=== PATIENT | female | born 1965 | race Caucasian/White ===

== ENCOUNTER 2017-08-22 17:46 | Inpatient (IN) | payer OTHER, SELFPAY ==
[2017-08-22 18:30] LABS: #Basophils 0.1 thou/uL (0.0-0.2); #Eosinphils 0.1 thou/uL (0.0-0.7); #Monocytes 0.6 thou/uL (0.11-0.59); #Neutrophils 3.7 thou/uL (1.40-6.50); %Basophils 1.6 % (0.0-1.0); %Eosinophils 1.2 % (0.0-10.0); %Lymphocytes 31.4 % (21.0-51.0); %Monocytes 9.2 % (0.0-10.0); Hematocrit 40.9 % (36.0-47.0); Mean Platelet Volume 6.3 fL (7.4-10.4); Red Blood Cell (RBC) Count 4.24 mill/uL (4.20-5.40); White Blood Cell (WBC) Count 6.5 thou/uL (4.8-10.8)
[2017-08-22 18:35] LABS: Bilirubin Negative (Negative); Blood, Urine Negative (Negative); Glucose, Urine (Dipstick) Negative (Negative); Ketone, Urine Trace mg/dL (Negative); Nitrite Negative (Negative); Protein, Urine (Dipstick) Negative (Neg-Trace)
[2017-08-22] MEDS ORDERED: Multivitamins, Adult 10 ML, Thiamine HCl 100 MG, Folic Acid 1 MG in Dextrose 5 %-0.45 %... IV SCH ×4 (18:45)
[2017-08-22 18:46] LABS: Bacteria/HPF None Seen HPF (None Seen); Hyaline Casts/LPF NONE SEEN LPF (0-3 Hyaline); RBC/HPF None Seen HPF (0-3); Squamous Epithelial 0-3 HPF (0-3); WBC/HPF 0-3 HPF (0-3)
[2017-08-22] MEDS ORDERED: Lorazepam 2 MG/ML VIAL ONE (18:47)
[2017-08-22 18:51] LABS: ALT (SGPT) 48 U/L (8-55); AST (SGOT) 187 U/L (5-34); Alkaline Phosphatase 160 U/L (40-150); Anion Gap 21 mmol/L (10-20); BUN (Urea Nitrogen) Less than 4 mg/dL (9.8-20.1); Bilirubin, Total 0.8 mg/dL (0.2-1.2); CK (CPK) 48 U/L (29-168); Calc. Creatinine Clearance 0 mL/min (70-130); Calcium 9.2 mg/dL (7.8-10.44); Carbon Dioxide 22 mmol/L (22-29); Chloride 88 mmol/L (98-107); Estimated GFR-MDRD Greater than 90; Globulin 4.4 g/dL (2.4-3.5); Protein, Total 8.5 g/dL (6.0-8.3)
[2017-08-22 18:55] LABS: Troponin I Less than 0.010 ng/mL (< 0.028)
[2017-08-22] MEDS ORDERED: Ondansetron HCl/PF 4 MG/2 ML Vial ONE (18:57)
[2017-08-22] MEDS ORDERED: Mag-Al 1200 mg/1200 mg/30 ML UDCUP ONE (20:04)
[2017-08-22] MEDS ORDERED: Lidocaine Viscous Sol 2% 15 ml UD Cup ONE (20:04)
[2017-08-22] MEDS ORDERED: Sodium Chloride 0.9% 1,000 ML IV SCH (22:08)
[2017-08-22 22:33] VITALS: BMI 26.5
--- NOTE | 2017-08-22 23:00 | PDOC.EVN ---
Event Note - Event Note Event Note: [id number] H&P Dictated 1. Alcohol abuse 2. Hyponatremia 3. Hypochloridemia plan: see orders
[2017-08-22] MEDS ORDERED: Ondansetron HCl/PF 4 MG/2 ML Vial IVP PRN (23:01)
[2017-08-22] MEDS ORDERED: Lorazepam 0.5 MG TAB PO PRN (23:03)
[2017-08-22] MEDS: Sodium Chloride 0.9% 1,000 ML IV SCH (23:31)
--- NOTE | 2017-08-22 23:51 | CT ---
CT ABDOMEN AND PELVIS NONCONTRAST 08/22/17 HISTORY: Bilateral flank pain. COMPARISON: 06/11/17 FINDINGS: Each renal collecting system and ureter and the urinary bladder are decompressed without stone evide nt. Phleboliths are apparent within the retroperitoneum. Lack of contrast limits evaluation for other abnormalities. There are calcified granulomata at the l kayla bases. The liver is diffusely hypodense. No evidence of bowel obstruction. Hiatal hernia is evid ent. IMPRESSION: 1. No CT evidence of urinary tract obstruction or calcification. 2. Hepatic steatosis. POS: [facility]
[2017-08-23] MEDS: Sodium Chloride 0.9% 1,000 ML IV SCH ×2 (03:17→18:25)
[2017-08-23] MEDS: Lorazepam 2 MG/ML VIAL SLOW IVP PRN ×3 (05:33→18:12)
[2017-08-23 05:45] LABS: Anion Gap 16 mmol/L (10-20); BUN (Urea Nitrogen) Less than 4 mg/dL (9.8-20.1); Calc. Creatinine Clearance 139 mL/min (70-130); Calcium 8.6 mg/dL (7.8-10.44); Carbon Dioxide 23 mmol/L (22-29); Chloride 93 mmol/L (98-107); Estimated GFR-MDRD Greater than 90
[2017-08-23 06:04] LABS: Band 3 % (5-11); Hematocrit 34.3 % (36.0-47.0); Mean Platelet Volume 6.7 fL (7.4-10.4); Neutrophil 56 % (42-75); Red Blood Cell (RBC) Count 3.55 mill/uL (4.20-5.40); White Blood Cell (WBC) Count 4.1 thou/uL (4.8-10.8)
[2017-08-23] MEDS: Famotidine/PF 20 mg/2ml Vial SLOW IVP SCH ×2 (07:54→20:32)
--- NOTE | 2017-08-23 08:26 | HP ---
DATE OF ADMISSION: 08/22/2017 CHIEF COMPLAINT: Nausea, vomiting, and diarrhea. HISTORY OF PRESENT ILLNESS: The patient is a 52-year-old female with past medical history of alcohol abuse and GERD, now came to the ED complaining of nausea, vomiting, and diarrhea. The patient said for the past 4 days, she was having vomiting and diarrhea numerous episodes. Denies any fever, denies any chills, denies any chest pain, denies any blood in the vomit, denies any blood in the stool, denies any black stools, denies any abdominal pain. Complains of acid reflux. Denies any chest pain, denies any palpations, denies any dizziness. The patient said she was drinking alcohol every day in order to prevent shakes. Complains of decreased p.o. intake also. PAST MEDICAL HISTORY: As per HPI. PAST SURGICAL HISTORY: Endometrial ablation. SOCIAL HISTORY: Positive for smoking, drinks alcohol everyday. Denies any drugs. FAMILY HISTORY: Positive for heart problems. REVIEW OF SYSTEMS: Constitutional: Denies any fever, denies any chills. Eyes : No vision problems. Ears: Denies any hearing loss. Neck: Denies neck pain. Cardiovascular: Denies any chest pain, denies any palpitations. Respiratory: Denies cough. Gastrointestinal: Positive for nausea, vomiting, and diarrhea. Musculoskeletal: Denies any joint deformities. Integumentary: Denies any rash. Cranial Nervous System: Denies syncope, denies lightheadedness. Psychiatric: Denies anxiety. All other review of systems are reviewed and are negative. PHYSICAL EXAMINATION: VITAL SIGNS: At the time of H\T\P performed, blood pressure is 120/79, temperature 97.8, heart rate 72, respiratory rate 22. GENERAL: The patient appears comfortable. HEENT: Pupils are equal, round, and reactive. Anterior nares patent. Nose normal. Ears normal. Teeth intact. Tongue is moist. NECK: Supple, no JVD. CARDIOVASCULAR: S1 and S2 present. Regular rate and rhythm. No murmurs, no rubs, no gallops. RESPIRATORY SYSTEM: No wheezing, no rhonchi. Breath sounds bilaterally. GASTROINTESTINAL: Abdomen is soft and nontender. No guarding, no organomegaly , no masses felt. MUSCULOSKELETAL: No edema. INTEGUMENTARY: No obvious rashes seen. PSYCHIATRIC: Mood is appropriate at this time. LABORATORY DATA: At the time of H\T\P performed, white count 6.5, hemoglobin 14 , platelet count is 175. BMP showed sodium 127, potassium 3.7, chloride 88, CO2 of 22, BUN of 21, creatinine 0.55. Urine, trace ketones, plasma alcohol 388. ASSESSMENT AND PLAN: The patient is a 52-year-old female: 1. Nausea, vomiting, and diarrhea, need to rule out any abdominal etiology. Plan is to do CT abdomen and pelvis without contrast to rule out any colitis. We will monitor the patient closely. 2. Hyponatremia probably secondary to excessive alcohol intake. Plan is to place the patient on IV fluids, monitor sodium level closely. Repeat BMP in a.m. 3. History of gastroesophageal reflux disease. Plan is to start the patient on PPI. 4. History of alcohol abuse. Plan is to give p.r.n. thiamine, p.r.n. Ativan, folic acid. Case was discussed in detail with the patient. CAMPBELLD
[2017-08-23] MEDS ORDERED: FLU VACC QS2017-18 36 mo. & older 0.5 ML SYRINGE IM ONE (09:00)
[2017-08-23] MEDS ORDERED: Folic Acid 1 MG TAB PO SCH (09:00)
[2017-08-23] MEDS ORDERED: Lorazepam 2 MG/ML VIAL ONE (11:09)
[2017-08-23] MEDS ORDERED: Ondansetron HCl/PF 4 MG/2 ML Vial IVP PRN (12:02)
[2017-08-23] MEDS ORDERED: Ondansetron HCl/PF 8 MG in Sodium Chloride 0.9% 50 ML IVPB PRN (12:02)
[2017-08-23] MEDS: Multivitamins, Adult 10 ML, Thiamine HCl 100 MG, Folic Acid 1 MG in Dextrose 5 %-0.45 %... IV SCH ×4 (14:36)
[2017-08-23] MEDS: Heparin 5,000 UNITS/ML VIAL SC SCH ×3 (14:36→20:30)
[2017-08-23] MEDS: Lorazepam 1 MG TAB PO SCH ×2 (14:52→20:31)
--- NOTE | 2017-08-23 14:57 | PDOC.PN ---
- Subjective Encounter Start Date: 08/23/17 Encounter Start Time: 11:10 Subjective: anxious, tremulous - Objective MAR Reviewed: Yes Vital Signs & Weight: Vital Signs (12 hours) Temp Pulse Resp BP BP Pulse Ox 08/23/17 08:54 98.7 F 101 H 18 126/78 94 L 08/23/17 08:00 98.7 F 107 H 20 93/62 92 L 08/23/17 04:00 98.7 F 107 H 20 93/62 93/62 92 L Weight Admit Weight 159 lb 4.8 oz Weight 159 lb 4.8 oz Result Diagrams: 08/23/17 04:30 08/23/17 04:30 Phys Exam - Physical Examination Constitutional: NAD Neck: no JVD Respiratory: clear to auscultation bilateral Cardiovascular: RRR, no significant murmur tacycardia Gastrointestinal: soft, no distention, positive bowel sounds Musculoskeletal: no edema, pulses present Dx/Plan (1) Alcohol withdrawal Code(s): F10.239 - ALCOHOL DEPENDENCE WITH WITHDRAWAL, UNSPECIFIED Status: Acute Qualifiers: Complication of substance-induced condition: with unspecified complication Qualified Code(s): F10.239 - Alcohol dependence with withdrawal, unspecified (2) Hyponatremia Code(s): E87.1 - HYPO-OSMOLALITY AND HYPONATREMIA Status: Acute (3) Acute renal failure Status: Acute Qualifiers: Acute renal failure type: unspecified Qualified Code(s): N17.9 - Acute kidney failure, unspecified (4) Alcohol intoxication Status: Acute Comment: impending delerium trewmons (5) Nausea Code(s): R11.0 - NAUSEA Status: Acute - Plan cont iv NS -: lorezepam 1 mg po tid, 1 mg iv q4h prn -: banana bag daily- po thiamine , etc soon * .
[2017-08-23] MEDS ORDERED: diphenhydrAMINE 25 MG CAP PO PRN (15:07)
[2017-08-23] MEDS: Acetaminophen 325 MG TAB PO PRN (20:31)
[2017-08-24] MEDS: Sodium Chloride 0.9% 1,000 ML IV SCH (01:13)
[2017-08-24] MEDS: Lorazepam 2 MG/ML VIAL SLOW IVP PRN ×2 (01:13→05:19)
[2017-08-24 08:38] VITALS: BP 142/89; TEMP 98.5
[2017-08-24] MEDS: Multivitamins, Adult 10 ML, Thiamine HCl 100 MG, Folic Acid 1 MG in Dextrose 5 %-0.45 %... IV SCH ×4 (08:48)
[2017-08-24] MEDS: Heparin 5,000 UNITS/ML VIAL SC SCH (08:51)
[2017-08-24] MEDS: Lorazepam 1 MG TAB PO SCH (08:52)
[2017-08-24] MEDS: Famotidine/PF 20 mg/2ml Vial SLOW IVP SCH (08:53)
[2017-08-24] MEDS ORDERED: FLUoxetine HCl 20 MG CAP PO SCH (09:00)
[2017-08-24] MEDS: Acetaminophen 325 MG TAB PO PRN (09:02)
--- NOTE | 2017-08-24 09:40 | PDOC.PN ---
- Subjective Encounter Start Date: 08/24/17 Encounter Start Time: 09:28 Subjective: ready to go home - Objective MAR Reviewed: Yes Vital Signs & Weight: Vital Signs (12 hours) Temp Pulse Resp BP Pulse Ox 08/24/17 08:21 98.5 F 93 18 142/89 H 97 08/24/17 04:00 98.9 F 89 18 146/93 H 96 Weight Admit Weight 159 lb 4.8 oz Weight 159 lb 4.8 oz I&O: 08/23/17 08/24/17 08/25/17 06:59 06:59 06:59 Intake Total 1700 Balance 1700 Result Diagrams: 08/23/17 04:30 08/23/17 04:30 Phys Exam - Physical Examination Constitutional: NAD Neck: no JVD Respiratory: clear to auscultation bilateral Cardiovascular: RRR, no significant murmur Gastrointestinal: soft, positive bowel sounds Musculoskeletal: no edema Dx/Plan (1) Alcohol withdrawal Code(s): F10.239 - ALCOHOL DEPENDENCE WITH WITHDRAWAL, UNSPECIFIED Status: Resolved Qualifiers: Complication of substance-induced condition: with unspecified complication Qualified Code(s): F10.239 - Alcohol dependence with withdrawal, unspecified (2) Hyponatremia Code(s): E87.1 - HYPO-OSMOLALITY AND HYPONATREMIA Status: Acute (3) Acute renal failure Status: Resolved Qualifiers: Acute renal failure type: unspecified Qualified Code(s): N17.9 - Acute kidney failure, unspecified (4) Alcohol intoxication Status: Resolved Comment: impending delerium trewmons (5) Nausea Code(s): R11.0 - NAUSEA Status: Resolved - Plan DC today * .
--- NOTE | 2017-08-24 11:44 | DIS ---
DATE OF ADMISSION: 08/22/2017 DATE OF DISCHARGE: 08/24/2017 PRIMARY CARE PROVIDER: Mihaela Hidalgo DISCHARGE DISPOSITION: Home. FINAL DIAGNOSES: Alcohol withdrawal syndrome, alcohol dependence, alcohol intoxication, hyponatremia , acute kidney failure, resolved. MEDICATIONS: Ativan 1 mg p.o. t.i.d. and q.4 hours p.r.n., thiamine 100 mg a day, Prozac 20 mg a day , folic acid 1 mg a day, multivitamin 1 a day, Protonix 40 mg a day, Seroquel XR 150 at bedtime. ALLERGIES: No known drug allergies. PENDING AT TIME OF DISCHARGE: Nothing. CODE STATUS: FULL. HOSPITAL COURSE: The patient was admitted to [facility] for nausea, vomiting, diarrhea. She was found to have a blood alcohol of 388; however, she was having some shaking. Her tremulousness got worse during her hospital stay. Initially, she was sundeep ivan with Ativan 1 mg p.o. t.i.d., not p.r.n. and 1 mg IV p.r.n. Today, she states she feels good. S he is ready for discharge. Her vital signs are stable. Her sodium has come up to 129, potassium 3.4 , creatinine 0.54. She does have an abnormal AST of 187 with normal alkaline phosphatase of 160. He r initial white count is 6.5, hemoglobin is 14.0, platelet count 175,000. White count dropped to 4.1 , hemoglobin 11.7, platelet count 119,000. Today, she is alert, calm, appropriate. We had a long di scussion of the use of Ativan with alcohol, I have given her prescription for 50 and I think that is the reasonable number. She is to see her primary care provider in 1 week. She is to continue on the vitamins that she was treated with here. I have explained to her the risk of respiratory depression with alcohol intoxication and the Ativan. She expresses understanding. She is agreed that if she s tarted drinking again, she will quit the Ativan and seek help. She expressed a very sincere desire t o avoid alcohol in the present and in the future. She states her father had a history of alcoholism and was able to shake it and she has good support from him.
[2017-08-24] MEDS ORDERED: Folic Acid 1 MG TAB PO SCH (12:00)
[2017-08-24] MEDS ORDERED: Multivit, Therapeutic 1 TAB PO SCH (12:00)
[2017-08-24] MEDS ORDERED: QUEtiapine Fumarate ER 150 MG TAB PO SCH (21:00)
== END 2017-08-24 11:06 | disposition home or self-care (01) | DRG 897 ==
LOC: ERS 17:46 → T4-A 20:46
PROVIDERS: ADMIT Family Medicine; ATTEND Family Medicine
DX: F10.231 Alcohol dependence with withdrawal delirium (principal); N17.9 Acute kidney failure, unspecified; E87.8 Other disorders of electrolyte and fluid balance, not elsewhere classified; E87.1 Hypo-osmolality and hyponatremia; K21.9 Gastro-esophageal reflux disease without esophagitis; F17.210 Nicotine dependence, cigarettes, uncomplicated; F10.229 Alcohol dependence with intoxication, unspecified; Y90.8 Blood alcohol level of 240 mg/100 ml or more
CPT/HCPCS: 36415; 74176; 80048; 80053; 80307; 81003; 81015; 82553; 84484; 85025; 93005; 96365; 96366; 96375; J1644; J2060; J2405; J3411; J7042; S0028

== ENCOUNTER 2017-09-17 17:09 | Inpatient (IN) | payer SELFPAY ==
[2017-09-17] MEDS ORDERED: Ketorolac Tromethamine 30 MG/ML VIAL ONE (17:19)
[2017-09-17] MEDS ORDERED: Fentanyl 100 MCG/2 ML VIAL ONE ×2 (17:19→23:17)
[2017-09-17 17:34] LABS: #Basophils 0.1 thou/uL (0.0-0.2); #Eosinphils 0.1 thou/uL (0.0-0.7); #Lymphocytes 2.2 thou/uL (1.20-3.40); #Monocytes 0.6 thou/uL (0.11-0.59); #Neutrophils 3.4 thou/uL (1.40-6.50); %Eosinophils 1.9 % (0.0-10.0); %Lymphocytes 34.1 % (21.0-51.0); %Monocytes 10.1 % (0.0-10.0); Hematocrit 37.1 % (36.0-47.0); Mean Platelet Volume 6.8 fL (7.4-10.4); Red Blood Cell (RBC) Count 3.76 mill/uL (4.20-5.40); White Blood Cell (WBC) Count 6.3 thou/uL (4.8-10.8)
[2017-09-17 17:41] LABS: PTT 32.2 SEC (22.9-36.1); Prothrombin Time 14.8 SEC (12.0-14.7)
--- NOTE | 2017-09-17 17:43 | RAD ---
FRONTAL AND LATERAL IMAGING OF THE LEFT TIBIA AND FIBULA: Date: 09/17/17 COMPARISON: None. HISTORY: Trauma, pain. FINDINGS: The bones are demineralized. There is an obliquely oriented fracture involving the distal left fibula r shaft with mild comminution and minimal lateral displacement. There is a medial malleolar fracture as well, incompletely assessed on this exam. Dedicated left ankle imaging advised. IMPRESSION: Fracture of the medial malleolus and distal left fibula for which dedicated left ankle imaging is rec ommended. POS: [facility]
--- NOTE | 2017-09-17 17:45 | RAD ---
3 VIEWS LEFT ANKLE: Date: 09/17/17 COMPARISON: None. HISTORY: Trauma, pain. FINDINGS: There is a comminuted, obliquely oriented distal left fibular shaft fracture with minimal lateral dis placement. There is a transverse fracture with distal distraction at the base of the medial malleolus . There is medial soft tissue swelling. IMPRESSION: Fractures of distal left fibular shaft and medial malleolus. POS: [facility]
--- NOTE | 2017-09-17 17:46 | RAD ---
2 VIEWS LEFT FOOT: Date: 09/17/17 COMPARISON: None. HISTORY: Trauma, pain. FINDINGS: The fracture of the distal left fibular shaft and medial malleolus again noted, better assessed on th e dedicated ankle series. There I a linear calcific density projecting over the base of the fifth metatarsal on the lateral vie w, etiology uncertain. When the patient is able, oblique imaging is advised to further assess. This c ould be artifactual or somewhat external to the patient. This density being associated with fracture seems unlikely but not fully excluded. IMPRESSION: Linear radiodensity projects over the base of the fifth metatarsal, significance uncertain. Fractures are seen involving the distal fibula and medial malleolus, better assessed on the ankle series. POS: [facility]
[2017-09-17 17:53] LABS: ALT (SGPT) 41 U/L (8-55); AST (SGOT) 188 U/L (5-34); Alkaline Phosphatase 157 U/L (40-150); Anion Gap 15 mmol/L (10-20); BUN (Urea Nitrogen) Less than 4 mg/dL (9.8-20.1); Bilirubin, Total 0.7 mg/dL (0.2-1.2); Calc. Creatinine Clearance 0 mL/min (70-130); Calcium 8.8 mg/dL (7.8-10.44); Carbon Dioxide 21 mmol/L (22-29); Chloride 97 mmol/L (98-107); Estimated GFR-MDRD Greater than 90; Protein, Total 7.8 g/dL (6.0-8.3)
[2017-09-17] MEDS ORDERED: HYDROmorphone 0.5 MG/0.5 ML SYRINGE ONE ×2 (18:29→20:42)
[2017-09-17] MEDS ORDERED: Ondansetron HCl/PF 4 MG/2 ML Vial ONE ×2 (19:43→20:41)
[2017-09-17] MEDS ORDERED: Lorazepam 2 MG/ML VIAL ONE (21:45)
[2017-09-17] MEDS ORDERED: Pantoprazole 40 MG VIAL ONE (21:46)
[2017-09-17 21:55] LABS: Magnesium 1.6 mg/dL (1.6-2.6); Phosphorus 3.5 mg/dL (2.3-4.7)
[2017-09-17] MEDS ORDERED: Pantoprazole 80 MG in Sodium Chloride 0.9% 100 ML IVP SCH (22:00)
[2017-09-17 22:32] LABS: Magnesium 1.2 mg/dL (1.6-2.6)
[2017-09-17 22:37] LABS: Troponin I Less than 0.010 ng/mL (< 0.028)
--- NOTE | 2017-09-17 22:40 | RAD ---
PORTABLE UPRIGHT FRONTAL CHEST: Date: 09/17/17 COMPARISON: 09/05/16. HISTORY: Chest pain, trauma, fracture of the ankle. FINDINGS: There is increased mild interstitial density, stable. No pneumothorax or pleural fluid is seen. There is no focal consolidation or alveolar edema. IMPRESSION: No acute findings. POS: [facility]
[2017-09-17 23:55] VITALS: BMI 28.0
[2017-09-18] MEDS ORDERED: Ondansetron HCl/PF 4 MG/2 ML Vial IVP PRN ×2 (00:13→07:53)
[2017-09-18] MEDS ORDERED: Ondansetron ODT 4 MG TAB SL PRN (00:13)
[2017-09-18] MEDS ORDERED: Lorazepam 2 MG/ML VIAL SLOW IVP PRN (00:15)
[2017-09-18] MEDS ORDERED: Dextrose 5 % And 0.9 % NaCl 1,000 ML IV SCH (00:15)
[2017-09-18] MEDS: Fentanyl 100 MCG/2 ML VIAL SLOW IVP PRN ×2 (00:53→06:02)
[2017-09-18] MEDS ORDERED: Magnesium Sulfate 4 GM in Sodium Chloride 0.9% 250 ML 250 ML IVPB SCH (01:00)
[2017-09-18 01:25] LABS: Hematocrit 31.2 % (36.0-47.0)
[2017-09-18] MEDS ORDERED: cloNIDine 0.1 MG TAB PO PRN (03:33)
[2017-09-18] MEDS ORDERED: Lorazepam 1 MG TAB PO PRN (03:33)
[2017-09-18] MEDS ORDERED: Morphine 2 MG/ML SYRINGE SLOW IVP PRN (03:35)
[2017-09-18] MEDS: Dextrose 5 % And 0.9 % NaCl 1,000 ML IV SCH ×3 (03:46→22:28)
[2017-09-18 04:29] LABS: #Lymphocytes 1.1 thou/uL (1.20-3.40); #Monocytes 0.6 thou/uL (0.11-0.59); #Neutrophils 3.4 thou/uL (1.40-6.50); %Basophils 0.2 % (0.0-1.0); %Eosinophils 0.6 % (0.0-10.0); %Lymphocytes 21.9 % (21.0-51.0); %Monocytes 10.8 % (0.0-10.0); Hematocrit 30.1 % (36.0-47.0); Mean Platelet Volume 6.7 fL (7.4-10.4); Red Blood Cell (RBC) Count 3.06 mill/uL (4.20-5.40); White Blood Cell (WBC) Count 5.1 thou/uL (4.8-10.8)
[2017-09-18 04:43] LABS: ALT (SGPT) 31 U/L (8-55); AST (SGOT) 135 U/L (5-34); Alkaline Phosphatase 127 U/L (40-150); Anion Gap 13 mmol/L (10-20); BUN (Urea Nitrogen) Less than 4 mg/dL (9.8-20.1); Bilirubin, Total 0.8 mg/dL (0.2-1.2); Calc. Creatinine Clearance 165 mL/min (70-130); Calcium 7.8 mg/dL (7.8-10.44); Carbon Dioxide 21 mmol/L (22-29); Chloride 105 mmol/L (98-107); Estimated GFR-MDRD Greater than 90; Globulin 3.1 g/dL (2.4-3.5); Protein, Total 6.3 g/dL (6.0-8.3)
[2017-09-18 04:44] LABS: Iron 84 ug/dL (50-170)
[2017-09-18] MEDS: Folic Acid 1 MG TAB PO SCH (06:02)
--- NOTE | 2017-09-18 06:03 | HP ---
DATE OF ADMISSION: 09/17/2017 The patient was seen and examined on 09/17/2017. PRIMARY CARE PHYSICIAN: AARON Mackey CHIEF COMPLAINT: Left lower extremity pain. HISTORY OF PRESENT ILLNESS: The patient is a 52-year-old female with chronic alcoholism and GI bleed ing secondary to Snehal-Crews tear in the past, presented to the emergency room with left lower extr emity pain that started when 200-pound door fell on her left lower extremity. She was brought in to the emergency room by EMS. She received 100 mcg of fentanyl and Zofran. There was no loss of sensat ion of her legs. Her pulses were intact per EMS report. Orthopedic was notified. The plan was to discharge her after sprinting her leg. While in the emerge ncy room, the patient begin vomiting, which was blood tinged. She also became somewhat lightheaded a nd dizzy. She was started on Protonix drip. Her hemoglobin in the emergency room was 12.4 initially . She denies any abdominal pain, fever, or chills. Her last alcohol drink was earlier today. No ch est pain, palpitations, or syncope reported. Initial vital signs in the emergency room showed temperature 98.3, respirations 22, pulse rate of 83, blood pressure of 125/83 with O2 saturation 99% on room air. PAST MEDICAL HISTORY: 1. History of GI bleeding secondary to Snehal-Crews tear. 2. Chronic alcoholism. 3. History of polysubstance abuse. 4. Fibromyalgia. 5. Chronic pain syndrome. 6. Hypertension. 7. Migraines. PAST SURGICAL HISTORY: 1. Bilateral breast augmentation. 2. Uterine ablation. 3. Bladder suspension. 4. Bilateral tubal ligation. ALLERGIES: The patient is allergic to IODINE. CURRENT HOME MEDICATIONS: Prozac 20 mg daily, multivitamin, folic acid and thiamine daily. The markel ent was discharged on Ativan for alcohol withdrawal. Protonix 40 mg daily, Seroquel 150 mg at bedtim e. SOCIAL HISTORY: The patient currently lives at home with her family. Drinks up to six pack mostly o n a daily basis. No drug use. Denies any smoking. FAMILY HISTORY: Positive for coronary artery disease. REVIEW OF SYSTEMS: The following complete review of systems was negative, unless otherwise mentioned in the HPI or below: Constitutional: Weight loss or gain, ability to conduct usual activities. Skin: Rash, itching. Eyes: Double vision, pain. ENT/Mouth: Nose bleeding, neck stiffness, pain, tenderness. Cardiovascular: Palpitations, dyspnea on exertion, orthopnea. Respiratory: Shortness of breath, wheezing, cough, hemoptysis, fever or night sweats. Gastrointestinal: Poor appetite, abdominal pain, heartburn, nausea, vomiting, constipation, or diarr hea. Genitourinary: Urgency, frequency, dysuria, nocturia. Musculoskeletal: Pain, swelling. Neurologic/Psychiatric: Anxiety, depression. Allergy/Immunologic: Skin rash, bleeding tendency. PHYSICAL EXAMINATION: VITAL SIGNS: As discussed above. GENERAL: A 52-year-old female in no apparent distress. Denies any pain. Continues to have some pavan sea; however, denies any vomiting at this time. HEENT: Head atraumatic, normocephalic. Sclerae are anicteric. Moist mucous membranes. No oral les ion. NECK: Supple, no JVD appreciated. No carotid bruit. LUNGS: Clear to auscultation bilaterally. No wheezing or rales. HEART: S1, S2 present. Regular rate and rhythm. No rubs or gallops. ABDOMEN: Soft, mild epigastric tenderness, without any rebound, guarding, no costovertebral angle te nderness. EXTREMITIES: No edema or calf tenderness. There is splint in left lower extremity. NEUROLOGIC: Grossly nonfocal, moves all four extremities. No sensory deficit in the left lower extr emity. SKIN: Warm and dry. LYMPH NODES: No palpable lymph nodes in the neck. PERIPHERAL VASCULAR: Radial pulses palpable bilaterally. MUSCULOSKELETAL: No joint swelling or tenderness. LABORATORY FINDINGS: CBC showed WBC of 6.3 with hemoglobin 12.4, hematocrit 37.1, and platelet count 134. PT was 14.8, INR 1.1. Chemistries showed sodium 129, potassium 3.6, chloride 97, bicarbonate 21, BUN less than 4, creatinine 0.53, magnesium 1.2. Troponins were negative. Lipase was 211, AST 1 88, ALT 41. Chest x-ray by my review was negative for infiltrate. EKG by my review showed sinus rhy thm without significant ST-T wave changes. X-ray of the ankle was consistent with fracture of the di stal left fibular shaft and medial malleolus. IMPRESSION: 1. Upper gastrointestinal bleeding. The patient had EGD earlier this year that was consistent with Snehal-Crews tear. She also had reflux esophagitis as well as esophageal stricture. We will contin ue Protonix drip. We will monitor H and H closely. IMCU monitoring. GI consult. N.p.o. IV fluids . Two large bore IV lines. 2. Anemia secondary to acute gastrointestinal blood loss. A repeat H and H is 10.2 and 31.2. We wi ll continue monitoring. We will transfuse if needed. 3. History of reflux esophagitis and esophageal stricture. 4. Chronic alcoholism. The patient was counseled to quit drinking. We will continue thiamine, foli c acid, and multivitamins. 5. Polysubstance abuse. The patient was counseled. 6. Chronic pain. 7. Depression, fibromyalgia, without any suicidal ideation. 8. Chronic pain syndrome. 9. Hyponatremia, chronic. 10. Hypomagnesemia at 1.2. We will replace. 11. Abnormal liver function tests secondary to chronic alcoholism. 12. Metabolic acidosis. 13. Thrombocytopenia with platelet of 90. Plan of care was discussed with the patient in detail and she stated understanding.
[2017-09-18 06:55] LABS: Hematocrit 31.8 % (36.0-47.0)
[2017-09-18] MEDS ORDERED: Milk Of Magnesia 30 ML UDCUP PO PRN (07:53)
[2017-09-18] MEDS ORDERED: Mag-Al 1200 mg/1200 mg/30 ML UDCUP PO PRN (07:53)
[2017-09-18] MEDS ORDERED: Senokot 8.6 MG TAB PO PRN (07:53)
[2017-09-18] MEDS ORDERED: Diabetic Tussin 200 MG/10 ML UDCUP PO PRN (07:53)
[2017-09-18] MEDS ORDERED: hydrALAZINE 20 MG/ML VIAL SLOW IVP PRN (07:53)
[2017-09-18] MEDS ORDERED: Ondansetron ODT 4 MG TAB PO PRN (07:53)
[2017-09-18] MEDS ORDERED: Acetaminophen 325 MG TAB PO PRN (07:53)
[2017-09-18] MEDS ORDERED: Chloraseptic Spray 180 ml Bottle PO PRN (07:53)
[2017-09-18] MEDS ORDERED: Sodium Chloride 0.65% Nasal 44 ML BOT EA NARE PRN (07:53)
[2017-09-18] MEDS ORDERED: Eucerin (Mineral Oil/Petrolatum,White) 30 gm Jar TOP PRN (07:53)
[2017-09-18] MEDS ORDERED: Zolpidem Tartrate 5 MG TAB PO PRN (07:53)
[2017-09-18] MEDS: HYDROcodone/Acetaminophen 5/325 mg Tablet PO PRN ×3 (08:42→17:09)
[2017-09-18] MEDS: Lorazepam 1 MG TAB PO SCH ×3 (08:42→21:22)
[2017-09-18] MEDS: FLUoxetine HCl 20 MG CAP PO SCH (08:42)
[2017-09-18] MEDS ORDERED: Multivit, Therapeutic 1 TAB PO SCH (09:00)
[2017-09-18] MEDS ORDERED: FLU VACC QS2017-18 36 mo. & older 0.5 ML SYRINGE IM ONE (09:00)
[2017-09-18] MEDS: Pantoprazole 40 MG VIAL IVP SCH ×2 (10:15→21:29)
[2017-09-18] MEDS: Cyanocobalamin (Vitamin B-12) 1,000 MCG TAB PO SCH (10:15)
[2017-09-18] MEDS: Multivit, Therapeutic 1 TAB PO SCH (12:10)
--- NOTE | 2017-09-18 12:30 | CON ---
DATE OF CONSULTATION: 09/18/2017 HISTORY: She is a 52-year-old female who came into the hospital after a kid fell on her leg and frac tured her left leg. In the ER she was complaining of abdominal pain and had black stools. She was therefore admitted to the ICU. She has a longstanding history of alcohol abuse, drinks up to 12 beers from time to time. 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 PAST MEDICAL HISTORY: Pertinent for previous GI bleed. She has alcohol abuse. Anxiety, fibromyalgi a, substance abuse, chronic pain, hypertension, migraine headaches. PAST SURGICAL HISTORY: Breast augmentation at age 22, uterine ablation, bladder suspension, tubal li gation. CHRONIC MEDICATIONS FROM HOME: Thiamine, Seroquel 150, Protonix 40, vitamin, Ativan, folic acid, Pro eleazar. ALLERGIES: None. SOCIAL/FAMILY HISTORY: Unremarkable. PHYSICAL EXAMINATION: VITAL SIGNS: Pulse 105, blood pressure 130/76, sats 97% on room air, respirations 13. GENERAL: Awake, alert, responsive. CHEST: Chest revealed decreased breath sounds, no wheezing. CARDIAC: Normal S1, S2. No gallops. ABDOMEN: Soft, no masses. LABORATORY: White count 13,000, H&H 10 and 30, stable, platelet count is low at 81. Chest x-ray was normal. X-ray of her tibia and fibula shows fracture at medial malleolus and distal left fibula. IMPRESSION: 1. Fractured distal fibula shaft to medial malleolus. 2. Alcohol abuse. 3. Gastrointestinal bleed. 4. Thrombocytopenia. PLAN: The patient appears to be stable enough to transfer out of the ICU. Await input from GI and Orthopedics. I agree with Ativan, folic acid and Thiamine. Counseled for alcohol abuse. I will follow while in the ICU.
[2017-09-18 15:23] LABS: Hematocrit 31.1 % (36.0-47.0)
[2017-09-18] MEDS: Morphine 4 MG/ML VIAL SLOW IVP PRN ×2 (17:32→21:25)
[2017-09-18 19:33] LABS: Hematocrit 30.5 % (36.0-47.0)
[2017-09-18] MEDS ORDERED: QUEtiapine Fumarate ER 50 MG TAB PO SCH (21:00)
[2017-09-18] MEDS ORDERED: Morphine 4 MG/ML VIAL ONE (21:20)
[2017-09-18] MEDS: QUEtiapine Fumarate ER 150 MG TAB PO SCH (22:20)
[2017-09-18 22:57] LABS: Hematocrit 31.5 % (36.0-47.0)
[2017-09-19] MEDS ORDERED: CEFAZOLIN/Water 2 GM/20 ML SYRINGE SLOW IVP SCH (00:01)
--- NOTE | 2017-09-19 03:21 | CON ---
DATE OF CONSULTATION: 09/18/2017 CHIEF COMPLAINT: Left leg pain. HISTORY OF PRESENT ILLNESS: Ms. Osorio is a 52-year-old female who was injured earlier today. A heavy door fell on her left leg. This caused her to twist and fall. She had immediate pain in the left l eg. She was unable to ambulate. She was diagnosed with an ankle fracture. The patient was splinted in the emergency room with plans to discharge; however, she began vomiting. This was blood tinged. She was then admitted to the hospital to work up her gastrointestinal bleeding. She does have a his tory of alcoholism with previous gastrointestinal bleed secondary to Snehal-Crews tear. PAST MEDICAL HISTORY: 1. History of gastrointestinal bleed. 2. Alcoholism. 3. Polysubstance abuse. 4. Fibromyalgia. 5. Chronic pain. 6. Hypertension. 7. Migraines. PAST SURGICAL HISTORY: History of previous breast augmentation, previous uterine ablation, bladder s uspension, and tubal ligation. ALLERGIES: IODINE. SOCIAL HISTORY: The patient drinks alcohol. She denies drug use. She denies current smoking. REVIEW OF SYSTEMS: Positive for left leg pain, otherwise negative. FAMILY MEDICAL HISTORY: Noncontributory. IMAGES: Reviewed including left ankle x-rays, which demonstrated distal fibula and medial malleolus fracture with displacement. These appear acute. Foot x-rays negative otherwise. PHYSICAL EXAMINATION: VITAL SIGNS: Temperature is 98.1, pulse is 83, respiratory rate 18, oxygen saturation 98%, blood pre ssure is 142/79. GENERAL: The patient is lying supine, in no apparent distress. RESPIRATORY: Breathing comfortably. ABDOMEN: Soft, nontender, nondistended. MUSCULOSKELETAL: The patient's left lower extremity is splinted. She is able to gently wiggle the t oes including flexion and extension. She has 2 second capillary refill. Warm and well perfused. IMPRESSION: Status post ankle fracture with history of GI bleed and possible active GI bleed, histor y of alcoholism. PLAN: At this point, the patient will need operative intervention for her ankle. She has a displace d bimalleolar ankle fracture, which is unstable. I will plan for surgical intervention tomorrow unle ss she has further complications or worsening of GI bleed symptoms. For now, she seems stable and he r hemoglobin is appropriate. She will be n.p.o. at midnight. She will have preoperative antibiotics and further medical workup for her conditions. Risks include infection, which is higher given her c hronic alcoholism, wound complication, nerve or vascular injury, nonunion, malunion, and others.
[2017-09-19] MEDS: Morphine 4 MG/ML VIAL SLOW IVP PRN ×4 (05:11→22:17)
[2017-09-19] MEDS: Folic Acid 1 MG TAB PO SCH (05:12)
[2017-09-19 06:22] LABS: #Eosinphils 0.1 thou/uL (0.0-0.7); #Lymphocytes 0.8 thou/uL (1.20-3.40); #Monocytes 0.4 thou/uL (0.11-0.59); #Neutrophils 1.3 thou/uL (1.40-6.50); %Basophils 0.6 % (0.0-1.0); %Eosinophils 2.1 % (0.0-10.0); %Lymphocytes 31.7 % (21.0-51.0); %Monocytes 14.2 % (0.0-10.0); Hematocrit 29.9 % (36.0-47.0); Mean Platelet Volume 8.6 fL (7.4-10.4); White Blood Cell (WBC) Count 2.6 thou/uL (4.8-10.8)
[2017-09-19 06:37] LABS: Anion Gap 8 mmol/L (10-20); BUN (Urea Nitrogen) Less than 4 mg/dL (9.8-20.1); Calc. Creatinine Clearance 159 mL/min (70-130); Calcium 8.3 mg/dL (7.8-10.44); Carbon Dioxide 25 mmol/L (22-29); Chloride 105 mmol/L (98-107); Estimated GFR-MDRD Greater than 90; Magnesium 1.8 mg/dL (1.6-2.6); Phosphorus 2.1 mg/dL (2.3-4.7)
--- NOTE | 2017-09-19 07:21 | CON ---
DATE OF CONSULTATION: 09/18/2017 HISTORY OF PRESENT ILLNESS: Ms. Aicha Osorio is a 52-year-old alcoholic who came to the emergency ro om yesterday evening as she was operating a hog trap and the door fell on her leg. She had a fractur e and she came to the emergency room and she was splinted and was going to go to the doctor today; ho benny, in the emergency room, she had an episode of hematemesis. She drinks about 6-12 beers a day. She apparently drank more heavily than in the past. She has been told by her PCP, Dr. Lund, that she needs to drink less, and she had actually been placed on some Ativan that help her wean down, but she had not started doing that yet. She knows about a year ago at this hospital and she had a simil ar episode and had to have an NG tube and was told she had an ulcer in her esophagus. Reviewing more recent record, she had a long distal esophageal Snehal-Crews tear in 10/2016, which had to be treat ed endoscopically. She also had esophageal stricture, which was not treated, and reflux esophagitis. She had a prior history of pancreatitis, felt to be alcohol related in 2016. Presently, she denies any abdominal pain. States she is a little bit nauseated. She states she is getting her regular fo od, but she really does not have much of an appetite. PAST MEDICAL HISTORY: Snehal-Crews tear in 10/2016, chronic alcoholism, history of polysubstance ab use, fibromyalgia, chronic pain syndrome, hypertension, migraines. PAST SURGICAL HISTORY: Includes bilateral breast augmentation, uterine ablation, bladder suspension, bilateral tubal ligation, upper endoscopy in 10/2016. ALLERGIES: IODINE. MEDICATIONS AT HOME: Prozac, multivitamin, folic acid, thiamine, Protonix, and Seroquel. PRESENT MEDICATIONS HERE IN THE HOSPITAL: Tylenol, Maalox, vitamin B12, Prozac, Folvite, Apresoline, [place] p.r.n. Ativan p.r.n., Theragran, Zofran, Protonix 40 IV q.12 hours, quetiapine, thiamine, mult ivitamin, folic acid. PHYSICAL EXAMINATION: GENERAL: The patient is resting comfortably in bed. She has had no vomiting since she had been admi tted to the floor. She had one bowel movement, which was brown. VITAL SIGNS: Temperature is 98, pulse 83, blood pressure 142/79. LUNGS: Clear. CARDIOVASCULAR: Regular rate and rhythm without clicks or murmurs. ABDOMEN: Soft, nontender. There is no rebound. There is no guarding. EXTREMITIES: Reveal no clubbing, cyanosis or edema. LABORATORY STUDIES: Hemoglobin is 10.2 this afternoon, it was 10 to 10.2 since she came in last nigh t, it was 12.4 at 1700 yesterday, but her baseline hemoglobin is 10-11 dating back all through the . Chemistries: Sodium 125, potassium 3.5, BUN and creatinine are 13 and 0.4, AST was 135, AL T 31, alkaline phosphatase is 127. Iron studies normal, ferritin 39, albumin 3.2, lipase 211, magnes ium 1.2, phosphorus was 3.5. ASSESSMENT AND PLAN: 1. Alcoholism. 2. Electrolyte disturbances related to alcoholism with low magnesium and low phosphorus. Would chec k these and replace these daily. 3. High risk for DTs, agree with ASE protocol, that has been instituted. PRN Ativan to get her thro ugh DTs. She said she wants to stop drinking and I would see if we can get her through DTs and then maybe she can go home with a fresh start. 4. Self-limiting hematemesis, likely related to Snehal-Crews tear from retching. At this time, she is not having ongoing bleeding and does not need endoscopy. I would back off the regular diet and p ut her on clear liquids. Continue IV PPI q.12 hours. At this time, there is no need for endoscopy. I will follow from a distance, and if I can be of further assistance, please do not hesitate to cont act me.
[2017-09-19] MEDS: Lorazepam 1 MG TAB PO SCH ×3 (07:37→20:57)
[2017-09-19] MEDS: Pantoprazole 40 MG VIAL IVP SCH ×2 (07:37→20:57)
[2017-09-19] MEDS: FLUoxetine HCl 20 MG CAP PO SCH (07:37)
[2017-09-19] MEDS: Cyanocobalamin (Vitamin B-12) 1,000 MCG TAB PO SCH (07:38)
[2017-09-19] MEDS ORDERED: Potassium Phosphate 30 MMOL, Admixture Fee 1 EACH in Sodium Chloride 0.9% 500 ML IVPB SCH (07:45)
--- NOTE | 2017-09-19 10:36 | PDOC.PN ---
- Subjective Encounter Start Date: 09/19/17 Encounter Start Time: 08:10 Patient seen and examined. No new complaints. No overnight events, pain controlled with morphin - Objective Resuscitation Status: Resuscitation Status FULL:Full Resuscitation MAR Reviewed: Yes Vital Signs & Weight: Vital Signs (12 hours) Temp Pulse Resp BP BP Pulse Ox 09/19/17 08:15 97.6 F 96 18 97 09/19/17 08:05 98.8 F 78 18 125/75 97 09/19/17 04:28 97.6 F 96 18 126/78 97 09/19/17 04:00 96 18 126/78 09/19/17 00:32 98.3 F 89 18 144/76 H 96 09/19/17 00:00 89 18 144/76 H Weight Weight 168 lb 6.931 oz Most Recent Monitor Data Heart Rate from ECG 93 NIBP 148/89 NIBP BP-Mean 107 Respiration from ECG 14 SpO2 98 I&O: 09/18/17 09/19/17 09/20/17 06:59 06:59 06:59 Intake Total 1867 Output Total 1350 1349 Balance -1350 518 Result Diagrams: 09/19/17 05:05 09/19/17 05:05 Phys Exam - Physical Examination Constitutional: NAD HEENT: PERRLA, moist MMs, sclera anicteric Neck: no JVD, supple Respiratory: no wheezing, no rales, no rhonchi Cardiovascular: RRR, no significant murmur, no rub Gastrointestinal: soft, non-tender, no distention, positive bowel sounds Musculoskeletal: no edema, pulses present left ankle swelling and pain Neurological: non-focal, normal sensation Psychiatric: normal affect, A&O x 3 Skin: no rash, normal turgor Dx/Plan (1) Fracture of distal end of left fibula Code(s): S82.832A - OTH FRACTURE OF UPPER AND LOWER END OF LEFT FIBULA, INIT Status: Acute (2) Closed fracture of medial malleolus of left ankle Code(s): S82.52XA - DISP FX OF MEDIAL MALLEOLUS OF LEFT TIBIA, INIT FOR CLOS FX Status: Acute (3) Upper GI bleed Code(s): K92.2 - GASTROINTESTINAL HEMORRHAGE, UNSPECIFIED Status: Acute (4) Anemia due to acute blood loss Code(s): D62 - ACUTE POSTHEMORRHAGIC ANEMIA Status: Acute (5) Hypomagnesemia Code(s): E83.42 - HYPOMAGNESEMIA Status: Acute (6) Thrombocytopenia Code(s): D69.6 - THROMBOCYTOPENIA, UNSPECIFIED Status: Acute (7) Chronic alcoholism Code(s): F10.20 - ALCOHOL DEPENDENCE, UNCOMPLICATED Status: Chronic (8) Fibromyalgia Status: Chronic (9) Hypophosphatemia Code(s): E83.39 - OTHER DISORDERS OF PHOSPHORUS METABOLISM Status: Acute - Plan cont current plan of care * replace potassium phosphate * continue IVF today * pt is planned for surgical repair for ankle fracture * pain controlled with morphin * medication reviewed as below * symptomatic treatment. Review of Systems - Review of Systems Constitutional: negative: Fever, Chills, Sweats, Weakness, Malaise, Other Eyes: negative: Pain, Vision Change, Conjunctivae Inflammation, Eyelid Inflammation, Redness, Other ENT: negative: Ear Pain, Ear Discharge, Nose Pain, Nose Discharge, Nose Congestion, Mouth Pain, Mouth Swelling, Throat Pain, Throat Swelling, Other Respiratory: negative: Cough, Dry, Shortness of Breath, Hemoptysis, SOB with Excertion, Pleuritic Pain, Sputum, Wheezing Cardiovascular: negative: Chest Pain, Palpitations, Orthopnea, Paroxysmal Noc. Dyspnea, Edema, Light Headedness, Other Gastrointestinal: negative: Nausea, Vomiting, Abdominal Pain, Diarrhea, Constipation, Melena, Hematochezia, Other Genitourinary: negative: Dysuria, Frequency, Incontinence, Hematuria, Retention , Other Musculoskeletal: Leg Pain. negative: Neck Pain, Shoulder Pain, Arm Pain, Back Pain, Hand Pain, Foot Pain, Other - Medications/Allergies Allergies/Adverse Reactions: Allergies Allergy/AdvReac Type Severity Reaction Status Date / Time No Known Allergies Allergy Verified 09/17/17 23:50 Medications: Current Medications Acetaminophen (Tylenol) 650 mg PO Q4H PRN PRN Reason: Headache/Fever or Mild Pain Hydrocodone Bitart/Acetaminophen ([place] 5/325) 1 tab PO Q4H PRN PRN Reason: Moderate Pain (4-6) Last Admin: 09/18/17 17:09 Dose: 1 tab Al Hydroxide/Mg Hydroxide (Maalox) 15 ml PO Q4H PRN PRN Reason: Heartburn or Indigestion Cefazolin Sodium (Ancef) 2 gm SLOW IVP WILLCALL [facility] Stop: 09/19/17 12:00 Clonidine (Catapres) 0.1 mg PO Q4H PRN PRN Reason: Systolic BP > 180 Cyanocobalamin (Vitamin B-12) 1,000 mcg PO DAILY [facility] Last Admin: 09/19/17 07:38 Dose: Not Given Fluoxetine HCl (Prozac) 20 mg PO DAILY [facility] Last Admin: 09/19/17 07:37 Dose: 20 mg Folic Acid (Folvite) 1 mg PO Q24H [facility] Last Admin: 09/19/17 05:12 Dose: 1 mg Guaifenesin (Robitussin Sf) 200 mg PO Q4H PRN PRN Reason: Cough Hydralazine HCl (Apresoline) 10 mg SLOW IVP Q4H PRN PRN Reason: Systolic BP > 180 Dextrose/Sodium Chloride (D5 0.9% Ns) 1,000 mls @ 100 mls/hr IV .Q10H [facility] Last Admin: 09/18/17 22:28 Dose: 1,000 mls Potassium Phosphate 30 mmol/Miscellaneous Medication 1 each/ Sodium Chloride 510 mls @ 83.3 mls/hr IVPB ONE [facility] Stop: 09/19/17 14:00 Lorazepam (Ativan) 1 mg PO TID [facility] Last Admin: 09/19/17 07:37 Dose: 1 mg Magnesium Hydroxide (Milk Of Magnesium) 30 ml PO DAILYPRN PRN PRN Reason: Constipation Mineral Oil/White Petrolatum (Eucerin Cream) 0 gm TOP BIDPRN PRN PRN Reason: Dry Skin Morphine Sulfate (Morphine) 4 mg SLOW IVP Q4H PRN PRN Reason: Severe Pain (7-10) Last Admin: 09/19/17 09:46 Dose: 4 mg Multivitamins (Theragran) 1 tab PO 1200 [facility] Last Admin: 09/18/17 12:10 Dose: 1 tab Ondansetron HCl (Zofran Odt) 4 mg PO Q6H PRN PRN Reason: Nausea/Vomiting Ondansetron HCl (Zofran) 4 mg IVP Q6H PRN PRN Reason: Nausea/Vomiting Last Admin: 09/18/17 21:22 Dose: 4 mg Pantoprazole Sodium (Protonix) 40 mg IVP Q12HR [facility] Last Admin: 09/19/17 07:37 Dose: 40 mg Phenol (Chloraseptic [place] 180 Ml Bot) 0 ml PO PRN PRN PRN Reason: Sore Throat Quetiapine Fumarate (Quetiapine Fumarate Er) 150 mg PO HS [facility] Last Admin: 09/18/17 22:20 Dose: 150 mg Senna (Senokot) 2 tab PO HSPRN PRN PRN Reason: Constipation Sodium Chloride (Flush - Normal Saline) 10 ml IVF PRN PRN PRN Reason: Saline Flush Sodium Chloride ([place] Nasal [place] 0.65%) 0 ml EA NARE QIDPRN PRN PRN Reason: Nasal Congestion Thiamine HCl (Thiamine) 100 mg PO DAILY [facility] Last Admin: 09/19/17 07:38 Dose: Not Given Zolpidem Tartrate (Ambien) 5 mg PO HSPRN PRN PRN Reason: Insomnia
[2017-09-19] MEDS: Multivit, Therapeutic 1 TAB PO SCH (11:38)
[2017-09-19] MEDS: Dextrose 5 % And 0.9 % NaCl 1,000 ML IV SCH ×2 (12:08→20:57)
--- NOTE | 2017-09-19 12:13 | PRG ---
DATE OF SERVICE: 09/19/2017 SUBJECTIVE: This morning, denies any pain or shortness of breath. PHYSICAL EXAMINATION: VITAL SIGNS: Blood pressure 125/75, sats are 96%on room air, temperature 97, pulse 96. CHEST: Clear. CARDIAC: Normal S1, S2. No gallops. ABDOMEN: Soft, no masses. LABORATORY DATA: White count 2.6, H&H is 9 and 29, platelet count 66. Electrolytes are normal. IMPRESSION: Gastrointestinal bleed, thrombocytopenia, alcohol abuse. PLAN: She is scheduled to undergo surgery for her fractured ankle. Pulmonary critical care will sig n off. Please call as needed.
--- NOTE | 2017-09-19 12:59 | EKG ---
Test Reason : Blood Pressure : / mmHG Vent. Rate : 079 BPM Atrial Rate : 079 BPM P-R Int : 202 ms QRS Dur : 094 ms QT Int : 430 ms P-R-T Axes : 061 044 035 degrees QTc Int : 493 ms Normal sinus rhythm Possible Left atrial enlargement Prolonged QT Abnormal ECG Confirmed by TEDDY PERLA ([id number]), content editor UNA BUSCH ([id number]) on 09/19/2017 12:58:46 PM Referred By: Confirmed By:TEDDY PERLA
[2017-09-19] MEDS ORDERED: CEFAZOLIN/Water 2 GM/20 ML SYRINGE ONE (13:38)
[2017-09-19] MEDS ORDERED: Midazolam HCl 2 mg/2 ml Vial ONE (13:44)
[2017-09-19] MEDS ORDERED: Fentanyl 100 MCG/2 ML VIAL ONE ×2 (13:45→15:20)
--- NOTE | 2017-09-19 14:08 | OP ---
DATE OF OPERATION: 09/19/2017 PROCEDURE PERFORMED: Open reduction internal fixation of left bimalleolar ankle fracture. PREOPERATIVE DIAGNOSIS: Left displaced bimalleolar ankle fracture. POSTOPERATIVE DIAGNOSIS: Left displaced bimalleolar ankle fracture. COMPLICATIONS: None. ESTIMATED BLOOD LOSS: Minimal. SURGEON: Maciel Dickson M.D. ANESTHESIA: General plus local. INDICATIONS: Ms. Osorio is a 52-year-old female who has been injured by a gate. She fractured her ank le. She was indicated for open reduction and internal fixation to restore function of the ankle and promote anatomic healing. Risks have been reviewed including infection, pain, scarring, nerve or vas cular injury and others. DESCRIPTION OF PROCEDURE: Ms. Osorio was identified in the preoperative holding area. Her correct ext remity was marked. She was carried to the operating room. She was positioned supine. General anest hesia was induced. A multidisciplinary timeout was performed. The left lower extremity was prepped and draped in sterile fashion. We began the procedure with a lateral incision dissecting down through the subcutaneous tissues to th e fibula level. We exposed the underlying fibula fracture, protecting the neurovascular structures. At this point, we placed a clamp along the fibula. We then placed a 6-hole 1/3 tubular plate on the lateral cortex. We placed multiple screws proximally and distally locking the plate to the bone and holding our fracture in a reduced anatomic position. At this point, we then made a small incision over the medial malleolus. A medial malleolar fracture fragment was reduced back into its anatomic position after removing and opposing soft tissue. We irr igated the wounds. We placed a K-wire holding our fracture position. We then placed two 4.0 mm part ially threaded screws across the medial malleolar fracture site. We took final x-ray images. We tho roughly irrigated. We then closed with 2-0 Vicryl suture followed by nylon for the skin. A sterile dressing was applied. The patient was taken to the recovery room in good condition without complicat ion. IMPLANTS: Synthes 1/3 tubular plate with multiple small fragment screws.
[2017-09-19] MEDS ORDERED: Propofol 200 MG/20 ML VIAL ONE (14:26)
[2017-09-19] MEDS ORDERED: Dexamethasone 20 MG/5 ML VIAL ONE (14:26)
[2017-09-19] MEDS ORDERED: Lidocaine 1% PF 5 ML VIAL ONE (14:26)
[2017-09-19] MEDS ORDERED: Ondansetron HCl/PF 4 MG/2 ML Vial ONE (14:26)
[2017-09-19] MEDS ORDERED: Ondansetron HCl/PF 4 MG/2 ML Vial IVP PRN (15:16)
[2017-09-19] MEDS ORDERED: HYDROmorphone 2 MG/ML VIAL SLOW IVP PRN (15:16)
[2017-09-19] MEDS ORDERED: Promethazine HCl 25 MG/ML VIAL SLOW IVP PRN (15:16)
[2017-09-19] MEDS ORDERED: Promethazine HCl 25 MG/ML VIAL IM PRN (15:16)
[2017-09-19] MEDS ORDERED: Promethazine HCl 25 MG/ML VIAL ONE (15:20)
[2017-09-19] MEDS ORDERED: HYDROmorphone 0.5 MG/0.5 ML SYRINGE ONE (15:35)
[2017-09-19] MEDS: HYDROcodone/Acetaminophen 5/325 mg Tablet PO PRN ×2 (18:15→22:13)
--- NOTE | 2017-09-19 20:07 | PRG ---
DATE OF SERVICE: 09/19/2017 SUBJECTIVE: Ms. Osorio had her ankle fracture fixed today. She is feeling little bit better. Nurses note she was confused and she came back, thought she was going home, thought she had been drinking so me NyQuil. OBJECTIVE: VITAL SIGNS: Temperature is 98, pulse 84, blood pressure is 144/84. GENERAL: The patient knows she is in the hospital at [place]. She does not know the correct date .. LUNGS: Clear. ABDOMEN: Soft, nontender. She is eating lunch. LABORATORY STUDIES: White count 2.6, hemoglobin 9.8, platelet count 66,000. INR 1.1. Chemistry: S odium 135, potassium 3.4, BUN and creatinine are 4 and 0.5. Phosphorus was 2.1 today. Magnesium was 1.2 yesterday. Those have been replaced. Liver function tests were not rechecked today. Mild lipa se elevation yesterday. ASSESSMENT: 1. Alcoholic liver disease. 2. Possible cirrhosis. 3. Hematemesis, self-limited, resolved. 4. Concern for risk for delirium tremens. 5. Ankle fracture status post repair. RECOMMENDATIONS: 1. Continue DVT prophylaxis with ASE protocol, benzodiazepine and Ativan p.r.n. 2. We will continue PPI therapy. This patient improved. She has no further vomiting. Protonix can be switched to p.o. At this time, we will follow and if I can be of any further assistance in her c are, please do not hesitate to contact me.
[2017-09-19] MEDS: QUEtiapine Fumarate ER 150 MG TAB PO SCH (20:57)
[2017-09-19] MEDS: CEFAZOLIN/Water 2 GM/20 ML SYRINGE SLOW IVP SCH (20:57)
--- NOTE | 2017-09-19 21:02 | RAD ---
HISTORY: Hardware removal. Four intraoperative radiographs obtained of the left ankle. FINDINGS/IMPRESSION: Although the history indicates hardware removal, there is placement of plates and screws across the d istal fibular fracture, medial malleolar fracture, as well as across the distal fibula and into the d istal left tibia. Findings compatible with open reduction internal fixation of left ankle fractures. POS: KHLOE
[2017-09-20] MEDS: Dextrose 5 % And 0.9 % NaCl 1,000 ML IV SCH (02:38)
[2017-09-20] MEDS: CEFAZOLIN/Water 2 GM/20 ML SYRINGE SLOW IVP SCH (02:39)
[2017-09-20] MEDS: Morphine 4 MG/ML VIAL SLOW IVP PRN ×2 (02:39→09:04)
[2017-09-20] MEDS: Folic Acid 1 MG TAB PO SCH (06:37)
[2017-09-20 08:39] LABS: Anion Gap 11 mmol/L (10-20); BUN (Urea Nitrogen) Less than 4 mg/dL (9.8-20.1); Calc. Creatinine Clearance 147 mL/min (70-130); Calcium 9.4 mg/dL (7.8-10.44); Carbon Dioxide 27 mmol/L (22-29); Chloride 100 mmol/L (98-107); Estimated GFR-MDRD Greater than 90; Magnesium 1.6 mg/dL (1.6-2.6); Phosphorus 4.1 mg/dL (2.3-4.7)
[2017-09-20] MEDS: Cyanocobalamin (Vitamin B-12) 1,000 MCG TAB PO SCH (09:06)
[2017-09-20] MEDS: Lorazepam 1 MG TAB PO SCH (09:06)
[2017-09-20] MEDS: FLUoxetine HCl 20 MG CAP PO SCH (09:06)
[2017-09-20] MEDS: Pantoprazole 40 MG VIAL IVP SCH (09:07)
[2017-09-20 09:55] LABS: #Lymphocytes 1.4 thou/uL (1.20-3.40); #Monocytes 0.7 thou/uL (0.11-0.59); #Neutrophils 2.6 thou/uL (1.40-6.50); %Basophils 0.3 % (0.0-1.0); %Eosinophils 0.2 % (0.0-10.0); %Lymphocytes 29.1 % (21.0-51.0); %Monocytes 14.5 % (0.0-10.0); Band 2 % (5-11); Hematocrit 29.4 % (36.0-47.0); Mean Platelet Volume 7.4 fL (7.4-10.4); Neutrophil 59 % (42-75); Polychromasia SLIGHT = 2-3 cells (100X) (0-2/hpf); Reactive Lymphocytes 2 % (0-10); Red Blood Cell (RBC) Count 2.92 mill/uL (4.20-5.40); White Blood Cell (WBC) Count 4.7 thou/uL (4.8-10.8)
--- NOTE | 2017-09-20 12:10 | DIS ---
PRIMARY CARE PHYSICIAN: Carole Kennedy Family Nurse Practitioner DATE OF ADMISSION: 09/17/2017 DATE OF DISCHARGE: 09/20/2017 DISCHARGE DISPOSITION: Home. PRIMARY DISCHARGE DIAGNOSES: 1. Transient episode of hematemesis likely due to Snehal-Crews tear. 2. Mild anemia due to acute blood loss. 3. Closed fracture of the medial malleolus of left fibula and distal end of left fibula, status post open reduction internal fixation for left ankle fracture. 4. Hypomagnesemia. 5. Hypophosphatemia. 6. Thrombocytopenia. SECONDARY DISCHARGE DIAGNOSES: Fibromyalgia, chronic alcoholism. PRIMARY PROCEDURE/OPERATION: Open reduction internal fixation for left ankle fracture. RADIOLOGICAL INVESTIGATION: Foot x-ray, tibia, fibula x-ray showed left ankle fracture. Chest x-ray normal. SIGNIFICANT LABS: WBC 4.7, hemoglobin 9.7, MCV 101, platelets 68. INR 1.1. Sodium 134, potassium 4, creatinine 0.54. Phosphorus 4.1, magnesium 1.6. AST 135, ALT 31, alkaline phosphatase 127. Cardiac enzymes negative. Ferritin 39.1. DISCHARGE MEDICATIONS: Prozac 20 mg p.o. daily, folic acid 1 mg p.o. daily, Ativan 1 mg p.o. t.i.d. p.r.n., multivitamin 1 tablet p.o. daily, thiamine 100 mg p.o. daily, Seroquel XR 150 mg p.o. at bedtime, Protonix 40 mg p.o. daily. CONTRAINDICATIONS: None. CODE STATUS: FULL CODE. INPATIENT CONSULTANTS: Dr. Dickson was consulted for ankle fracture who did open reduction internal fixation. Dr. Tsang saw this patient because patient was initially admitted to CCU. Dr. Stewart was consulted for hematemesis. TEST RESULTS PENDING ON DISCHARGE: None. ALLERGIES: No known drug allergy. DISCHARGE PLAN: Post hospital, the patient will follow up with Dr. Dickson in 10 days. The patient will follow up with primary care physician as instructed. HOSPITAL COURSE: A 52-year-old female who has chronic alcoholism and she was brought to the emergency room for left lower extremity pain. The patient reports that when she was doing stuff at home she had a fall on her lower extremities and subsequently she was having swelling and pain in her left ankle area. She was diagnosed with left ankle fracture. The patient was admitted in CCU. When she was in the emergency room, she had one episode of transient hematemesis and that is why she required CCU admission. She remained stable. She did not have any blood count drop, only whatever she had a dropped was related with a dilutional drop. She did not require any procedures. She did not require any blood transfusion. While in hospital, we corrected her abnormal electrolytes. This patient was transferred out of ICU the next day. As patient was in CCU that is why Dr. Tsang saw this patient and GI was consulted for suspected hematemesis and as this patient already upper endoscopy in the recent past and that is why she did not require any further endoscopy. After Surgery, Dr. Dickson cleared her for discharge. We provided counseling for avoidance of alcohol. Overall, this patient is medically stable for discharge today. Orthopedic cleared her for discharge as well. The patient is seen and examined at bedside today. REVIEW OF SYSTEMS Reviewed and negative. PHYSICAL EXAMINATION: VITAL SIGNS: Currently, temperature 98.0, pulse 78, respiratory rate 16, saturation 99%, blood pressure 155/81, weight 168 pounds. GENERAL: The patient is currently alert, oriented, in no acute distress. HEAD: Normocephalic, atraumatic. LUNGS: Clear. CARDIAC: S1, S2 regular without any murmur. ABDOMEN: Soft and benign. EXTREMITIES: No edema. NEUROLOGIC: Nonfocal examination. Overall, this patient is medically stable for discharge. Total time spent on discharge day more than 30 minutes. MTDD
[2017-09-20 12:31] VITALS: BP 123/80; TEMP 97.9
[2017-09-20] MEDS: Multivit, Therapeutic 1 TAB PO SCH (12:40)
[2017-09-20] MEDS: HYDROcodone/Acetaminophen 5/325 mg Tablet PO PRN (12:58)
== END 2017-09-20 15:08 | disposition home or self-care (01) | DRG 492 ==
LOC: ERS 17:09 → CCU 21:47 → SURG B 09-18 12:55
PROVIDERS: ADMIT Internal Medicine; ATTEND Internal Medicine
PROC: 0QSH04Z Reposition Left Tibia with Internal Fixation Device, Open Approach (ICD-10-PCS; principal; 2017-09-19)
DX: S82.842A Displaced bimalleolar fracture of left lower leg, initial encounter for closed fracture (principal); K22.6 Gastro-esophageal laceration-hemorrhage syndrome; E87.2 Acidosis; D62 Acute posthemorrhagic anemia; E87.1 Hypo-osmolality and hyponatremia; E83.42 Hypomagnesemia; K74.60 Unspecified cirrhosis of liver; K70.9 Alcoholic liver disease, unspecified; S82.832A Other fracture of upper and lower end of left fibula, initial encounter for closed fracture; I10 Essential (primary) hypertension; E83.39 Other disorders of phosphorus metabolism; F10.20 Alcohol dependence, uncomplicated; M79.7 Fibromyalgia; G89.4 Chronic pain syndrome; Z91.09 Other allergy status, other than to drugs and biological substances; Z82.49 Family history of ischemic heart disease and other diseases of the circulatory system; Y92.89 Other specified places as the place of occurrence of the external cause; W19.XXXA Unspecified fall, initial encounter
CPT/HCPCS: 29515; 36415; 71010; 76001; 80048; 80053; 82553; 82728; 83540; 83550; 83690; 83735; 84100; 84484; 85014; 85018; 85025; 85049; 85610; 85730; 86850; 86900; 86901; 90471; 90682; 93005; 96361; 96365; 96375; 96376; C1713; C9113; G0008; G0390; J1100; J1170; J1885; J2001; J2060; J2250; J2270; J2405; J2550; J2704; J3010; J3475; J7050; Q2036

== ENCOUNTER 2018-04-10 19:27 | Inpatient (IN) | payer OTHER, SELFPAY ==
[~2018-04-10 19:27] MED LIST: ISOVUE-370 76%-LOCM 1 ML ONE
[2018-04-10 20:18] LABS: #Basophils 0.1 thou/uL (0.0-0.2); #Eosinphils 0.1 thou/uL (0.0-0.7); #Lymphocytes 1.7 thou/uL (1.20-3.40); #Monocytes 0.6 thou/uL (0.11-0.59); #Neutrophils 2.6 thou/uL (1.40-6.50); %Basophils 1.2 % (0.0-1.0); %Eosinophils 2.1 % (0.0-10.0); %Lymphocytes 33.1 % (21.0-51.0); %Monocytes 11.9 % (0.0-10.0); %Neutrophils 51.8 % (42.0-75.0); Mean Corpuscular HGB CONC 33.2 g/dL (32.0-36.0); Mean Corpuscular Hemoglobin 31.8 pg (27.0-31.0); Mean Corpuscular Volume 95.8 fL (78.0-98.0); Mean Platelet Volume 8.3 fL (7.4-10.4); Platelet Count 69 thou/uL (130-400); RBC Distribution Width 18.1 % (11.5-14.5); Red Blood Cell (RBC) Count 3.47 mill/uL (4.20-5.40)
[2018-04-10] MEDS ORDERED: traMADol HCl 50 MG TAB ONE (20:30)
[2018-04-10 20:35] LABS: ALT (SGPT) 32 U/L (8-55); AST (SGOT) 164 U/L (5-34); Albumin 3.3 g/dL (3.5-5.0); Alkaline Phosphatase 150 U/L (40-150); Anion Gap 16 mmol/L (10-20); BUN (Urea Nitrogen) Less than 4 mg/dL (9.8-20.1); Bilirubin, Total 2.2 mg/dL (0.2-1.2); Calc. Creatinine Clearance 0 mL/min (70-130); Calcium 8.4 mg/dL (7.8-10.44); Carbon Dioxide 20 mmol/L (22-29); Chloride 100 mmol/L (98-107); Estimated GFR-MDRD Greater than 90; Globulin 4.2 g/dL (2.4-3.5); Glucose 92 mg/dL (70-105); Potassium 3.7 mmol/L (3.5-5.1); Protein, Total 7.5 g/dL (6.0-8.3); Sodium 132 mmol/L (136-145)
[2018-04-10 20:41] LABS: Alcohol 341 mg/dL (Less than 10); CK (CPK) 51 U/L (29-168); Lipase 33 U/L (8-78)
[2018-04-10 20:46] LABS: CKMB 1.4 ng/mL (0-6.6); Troponin I 0.026 ng/mL (< 0.028)
[2018-04-10] MEDS ORDERED: Pantoprazole 40 MG VIAL ONE (20:53)
[2018-04-10] MEDS ORDERED: Mag-Al 1200 mg/1200 mg/30 ML UDCUP ONE (20:53)
[2018-04-10] MEDS ORDERED: Lidocaine Viscous Sol 2% 15 ml UD Cup ONE (20:53)
[2018-04-10 21:43] LABS: Bilirubin Negative (Negative); Blood, Urine Negative (Negative); Clarity CLEAR (Clear); Glucose, Urine (Dipstick) Negative (Negative); Leukocyte Negative (Negative); Nitrite Negative (Negative); Protein, Urine (Dipstick) Negative (Neg-Trace); Specific Gravity, Urine 1.009 (1.002-1.036); Urobilinogen 0.2 mg/dL (0.2-1.0)
[2018-04-10] MEDS ORDERED: metroNIDAZOLE 500 MG in Premix Bag 1 BAG IVPB SCH ×2 (22:00→22:15)
--- NOTE | 2018-04-10 22:04 | CT ---
CT ABDOMEN AND PELVIS WITH CONTRAST 04/10/18 HISTORY: Abdominal pain. Vomiting. COMPARISON: CT abdomen and pelvis 08/22/17 without contrast. FINDINGS: There is abnormal air space opacity in the right lower lobe which may be from infection or aspiration . No pericardial effusion. The liver is enlarged. Moderate size sliding hiatal hernia. Portal vein is patent without thrombus. Splenic vein is patent. Spleen is not significantly changed. Small volume ascites. Urinary bladder is markedly distended. Mild submucosal edema of the ascending and descending colon as well as the cecum likely ingested hall ges from hepatic failure as well as edema within the gallbladder wall. Common bile duct is upper limits of normal in size measuring approximately 7 mm. No significant intra hepatic biliary dilatation. Aortoiliac contour is nonaneurysmal. No free intraperitoneal gas. Old com pression deformity at T12 is similar. No other osseous abnormality. IMPRESSION: 1. Right basilar air space opacity concerning for infection or aspiration. 2. Moderate sized sliding hiatal hernia. 3. Hepatomegaly with decreased attenuation suggesting steatosis versus acute hepatitis. There is small volume ascites as well as submucosal edema within the colon as well as within the gallbladder suggesting hepatic dysfunction. 4. Mild dilatation common bile duct. Recommend correlation with LFTs. 5. Mild hyperenhancement of the right pericolic gutter peritoneum can be seen with peritonitis. POS: DAMON
[2018-04-10] MEDS ORDERED: Multivitamins, Adult 10 ML, Thiamine HCl 100 MG, Folic Acid 1 MG in Dextrose 5 %-0.45 %... IV SCH (22:15)
[2018-04-10] MEDS ORDERED: Ondansetron HCl/PF 4 MG/2 ML Vial IVP PRN (23:39)
[2018-04-10] MEDS ORDERED: Ondansetron ODT 4 MG TAB SL PRN (23:39)
[2018-04-11 00:28] VITALS: BMI 26.8
[2018-04-11] MEDS: traMADol HCl 50 MG TAB PO PRN ×3 (00:28→19:41)
[2018-04-11 01:35] LABS: Lactic Acid 1.9 mmol/L (0.5-2.2)
--- NOTE | 2018-04-11 02:24 | HP ---
PRIMARY CARE PHYSICIAN: Dr. Carole Clayton. CODE STATUS: FULL CODE TIME OF EVALUATION: 10:15 p.m. CHIEF COMPLAINT: Abdominal pain. HISTORY OF PRESENT ILLNESS: This is a 53-year-old female with past medical history of alcohol abuse, liver cirrhosis, came to the hospital after having worsening abdominal pain associated with abdominal distention. Symptoms were reported as moderate, also associated with nausea, vomiting, loss of appetite. Symptoms were reported as severe.No clear triggers, no alleviating factors. She reported drinking about 12 beers a day. Also, on the CAT scan that was done in ER, it was found that she might have some colitis, for the reason she has been treated with antibiotics. REVIEW OF SYSTEMS: Constitutional: No fever, occasional chills, generalized weakness. Respiratory: No cough, no sputum production. Occasional shortness of breath due to increased abdominal size. Cardiovascular: No chest pain, palpitations, shortness of breath. Gastrointestinal: The patient reported nausea, occasional vomiting, no diarrhea. She reported abdominal pain, it is epigastric. Central nervous system: No dizziness, headache, feeling lightheaded. Genitourinary: No burning on urination. Extremities: No leg swelling. All other systems were reviewed and were negative except for the findings mentioned above. PAST MEDICAL HISTORY: Alcohol abuse, GERD, hypertension. PAST SURGICAL HISTORY: Left ankle surgery, endometrial ablation, breast augmentation, tubal ligation. SOCIAL HISTORY: Patient drinks on a daily basis, about 12 beers every day, former drug user, abuses benzodiazepines, abuses prescription medications. FAMILY HISTORY: The patient reported having both mother and father with CAD status post CABG. ALLERGIES: No known drug allergy reported. MEDICATIONS: Tylenol #3 two tablets once a day p.r.n. PHYSICAL EXAMINATION: VITAL SIGNS: On presentation, blood pressure 106/76, heart rate 78, respiratory rate was 18, temperature 98.1, oxygen saturation 96. GENERAL APPEARANCE: The patient is alert, oriented, not in acute distress. HEENT: Eyes, normocephalic, conjunctivae are. Moist oral mucosa, anicteric. NECK: No JVD. RESPIRATORY: Bilateral air entry. No rales, no wheezing. Symmetric expansion. CARDIOVASCULAR: Normal rate, normal rhythm, no murmurs, no gallop. No edema. ABDOMEN: Soft, distended, normal bowel sounds, tender. MUSCULOSKELETAL: Baseline range of motion and strength, no tenderness. SKIN: Warm and intact. No pallor, no rash, no redness. NEUROLOGIC: Baseline sensorium. No evidence of any new focal weakness. Baseline speech. Cranial nerve seems to be intact. PSYCHIATRIC: Good mood. No anxiety. Oriented, optimal judgement. LABORATORY DATA: Reviewed. The patient had white count of 5.6, hemoglobin 11, MCV 95.8, platelet count 69. Chemistry: Sodium 132, potassium 3.7, carbon dioxide was 20, anion gap 16, BUN 0.4, lactic acid 2.3, GFR greater than 90. Total bilirubin 2.2 with AST 164, ALT 32, alkaline phosphatase 115. Troponin was negative. Albumin 3.3. Plasma alcohol 341. CAT scan was reviewed. IMPRESSION: 1. Right basilar airspace opacity concerning for infection or aspiration. 2. Moderate size sliding hiatal hernia. 3. Hepatomegaly with decreased attenuation suggesting steatosis versus acute hepatitis. There is a small volume ascites and there is submucosal edema within the colon as well as within the gallbladder suggesting hepatic dysfunction. 4. Mild hydration, common bile duct. Recommend correlation with LFTs. 5. Mild hyperenhancement of the right pericolic gutter. Peritoneum can be seen with peritonitis. ASSESSMENT AND PLAN: The patient was placed in the hospital for her medical condition. 1. Aspiration pneumonia, seen on this CAT scan, patient is already on Flagyl and Levaquin that will cover, monitor cultures, adjust them as needed. The patient has possible colitis versus possible peritonitis, continue antibiotics, follow up cultures, monitor the patient clinically. If not improving, consider surgery consultation. 2. Ascites: Likely secondary to alcohol cirrhosis, might need tap in the morning, patient has distended abdomen that is interfering with breathing, she reported that this has been present for the past couple of weeks, but now has gotten to the point that she cannot breath properly. 3. Ethanol intoxication, patient has high ethanol level in blood. Advised to quit drinking. She has stated she would like to try to. 4. Elevated liver function tests, this is likely secondary to alcoholic hepatitis, we will monitor, we will adjust them as needed. 5. Lactic acidosis 2.3, this is likely secondary to liver cirrhosis, we will monitor the patient for sepsis. 6. Hyponatremia, this is mild, likely secondary to liver cirrhosis, we will monitor, adjust them as needed. 7. Thrombocytopenia, likely secondary to liver cirrhosis, we will monitor, patient has no bleeding, no further treatment is needed at this point. 8. Normocytic anemia, is mild, likely secondary to liver cirrhosis, advised to stop drinking, we will monitor Coumadin for any acute intervention at this time. 9. Abdominal pain, likely secondary to ascites, possibility for SBP, also due to colitis, we will treat pain, through the underlying condition. 10. The patient may benefit from gastrointestinal evaluation and tap in the morning. 11. Deep venous thrombosis prophylaxis. MTDD
[2018-04-11] MEDS: Ondansetron HCl/PF 4 MG/2 ML Vial IVP PRN ×2 (03:37→21:37)
[2018-04-11] MEDS: metroNIDAZOLE 500 MG in Premix Bag 1 BAG IVPB SCH ×2 (05:35→14:25)
[2018-04-11] MEDS ORDERED: metroNIDAZOLE 500 MG in Premix Bag 1 BAG IVPB SCH (06:00)
[2018-04-11 06:01] LABS: Anion Gap 11 mmol/L (10-20); BUN (Urea Nitrogen) Less than 4 mg/dL (9.8-20.1); Calc. Creatinine Clearance 175 mL/min (70-130); Calcium 7.6 mg/dL (7.8-10.44); Carbon Dioxide 19 mmol/L (22-29); Chloride 106 mmol/L (98-107); Estimated GFR-MDRD Greater than 90; Glucose 98 mg/dL (70-105); Potassium 3.3 mmol/L (3.5-5.1); Sodium 133 mmol/L (136-145)
[2018-04-11 06:09] LABS: Band 8 % (5-11); Eosinophils 5 % (0-10); Hemoglobin 9.1 g/dL (12.0-16.0); Lymphocytes 33 % (21-51); MDiff Complete? YES; Mean Corpuscular HGB CONC 33.2 g/dL (32.0-36.0); Mean Corpuscular Hemoglobin 32.2 pg (27.0-31.0); Mean Corpuscular Volume 96.8 fL (78.0-98.0); Mean Platelet Volume 10.1 fL (7.4-10.4); Monocytes 9 % (0-10); Neutrophil 43 % (42-75); PLT Morphology Comment Appears Decreased; Platelet Count 58 thou/uL (130-400); RBC Distribution Width 18.2 % (11.5-14.5); Red Blood Cell (RBC) Count 2.81 mill/uL (4.20-5.40); White Blood Cell (WBC) Count 2.6 thou/uL (4.8-10.8)
[2018-04-11] MEDS: FLUoxetine HCl 20 MG CAP PO SCH (09:46)
[2018-04-11] MEDS: Lorazepam 1 MG TAB PO SCH ×3 (09:46→21:35)
[2018-04-11] MEDS: Multivit, Therapeutic 1 TAB PO SCH (12:13)
[2018-04-11] MEDS: Folic Acid 1 MG TAB PO SCH (12:13)
--- NOTE | 2018-04-11 16:34 | PDOC.EVN ---
Event Note - Event Note Event Note: pt seen and examined h&p reviewed pt c/o abd discomfort and shaking reports a hx of etoh w/d in the past including sz approx 4 yrs ago exam: abd: + bs but decreased, + distended, + fluid wave, ttp throughout resp: reasonable air movement, no conversational dyspnea a/p leukopenia with tachycardia and possible peritoneal infection in the setting of EtOH use/ cirrhosis with ascites sepsis - lactic acid cleared earlier levofloxacin + metronidazole for empiric abx diagnostic paracentesis requested although this would already be obtained post empiric antibiotics t/c diuresis apprec GI c/s leukopenia appears to be new episode of wide complex tachyarrhythmia self resolved, asymptomatic, on telemetry check 12 lead EKG repeat CBC, CMP, Mg, troponin maintain on telemetry alcohol use at risk for w/d currently with clinical ssx c/w EtOH w/d ASE protocol with short acting agents close neurological monitoring -caution with pain medications which patient is currently requesting anemia - chronic anemia closely monitor currently otherwise hemodynamically stable thrombocytopenia suspect chronic component from cirrhosis continue to monitor for ssx of bleeding activity: as nick dvt ppx: seq plts too low for chemical ppx at this time
[2018-04-11 16:56] LABS: #Basophils 0.1 thou/uL (0.0-0.2); #Lymphocytes 0.8 thou/uL (1.20-3.40); #Monocytes 0.5 thou/uL (0.11-0.59); #Neutrophils 2.2 thou/uL (1.40-6.50); %Basophils 1.7 % (0.0-1.0); %Eosinophils 1.2 % (0.0-10.0); %Lymphocytes 21.2 % (21.0-51.0); %Monocytes 14.3 % (0.0-10.0); %Neutrophils 61.6 % (42.0-75.0); Hemoglobin 9.8 g/dL (12.0-16.0); Mean Corpuscular HGB CONC 32.7 g/dL (32.0-36.0); Mean Corpuscular Hemoglobin 31.7 pg (27.0-31.0); Mean Corpuscular Volume 96.9 fL (78.0-98.0); Mean Platelet Volume 8.1 fL (7.4-10.4); Platelet Count 55 thou/uL (130-400); RBC Distribution Width 18.1 % (11.5-14.5); White Blood Cell (WBC) Count 3.5 thou/uL (4.8-10.8)
[2018-04-11 17:15] LABS: ALT (SGPT) 28 U/L (8-55); AST (SGOT) 135 U/L (5-34); Alkaline Phosphatase 130 U/L (40-150); Anion Gap 12 mmol/L (10-20); BUN (Urea Nitrogen) Less than 4 mg/dL (9.8-20.1); Calc. Creatinine Clearance 157 mL/min (70-130); Calcium 7.9 mg/dL (7.8-10.44); Carbon Dioxide 23 mmol/L (22-29); Chloride 102 mmol/L (98-107); Estimated GFR-MDRD Greater than 90; Globulin 3.6 g/dL (2.4-3.5); Glucose 95 mg/dL (70-105); Potassium 3.5 mmol/L (3.5-5.1); Protein, Total 6.6 g/dL (6.0-8.3); Sodium 133 mmol/L (136-145)
[2018-04-11 17:17] LABS: Troponin I Less than 0.010 ng/mL (< 0.028)
[2018-04-11] MEDS ORDERED: Diazepam 5 MG TAB PO PRN (17:26)
[2018-04-11] MEDS ORDERED: Diazepam 5 MG TAB PO SCH (17:30)
[2018-04-11] MEDS ORDERED: Thiamine HCl 200 MG/2 ML VIAL IM SCH (17:30)
--- NOTE | 2018-04-11 17:56 | CON ---
DATE OF CONSULTATION: 04/11/2018 GASTROENTEROLOGY CONSULTATION CHIEF COMPLAINT: Abdominal discomfort. HISTORY OF PRESENT ILLNESS: Ms. Osorio is a 53-year-old woman with alcoholic cirrhosis who presented t o the emergency room last night with progressive abdominal distention and discomfort over the last 2 weeks. She has had no prior abdominal distention like this. She has had some nausea, but no vomitin g, no diarrhea. She has had firm stool yesterday morning. No blood in the stool. She drinks 12 bee rs per day, round about patient has a history of alcohol withdrawal and currently has tremors and sha kes, which she reports is from lack of all alcohol intake. Her last drink was around 6:00 p.m. last night. PAST MEDICAL HISTORY: Alcohol abuse and likely cirrhosis, hypertension. She had actively bleeding M [employer] tear in 10/2016 that was cauterized by Dr. Cline. She has had chronic back pain and poly substance abuse in the past. PAST SURGICAL HISTORY: Ankle surgery, endometrial ablation, breast augmentation, tubal ligation. FAMILY HISTORY: Negative for GI malignancy. SOCIAL HISTORY: She drinks 12 pack per day. No recent drug use. ALLERGIES: IODINE. MEDICATIONS: Currently include ceftriaxone. She was initially placed on levofloxacin and metronidaz ole. However, these were changed to ceftriaxone after she had a run of wide complex tachycardia. Rene fernandez is on quetiapine, thiamine and folic acid and scheduled lorazepam, she is on pantoprazole 40 mg hortencia ly. REVIEW OF SYSTEMS: Negative x10 systems reviewed except as stated in history of present illness. LABORATORY DATA AND IMAGING DATA: Her plasma alcohol level was 341 last night. White blood cell cou nt is 2.6, hemoglobin 9.1 and platelets 58,000. INR 1.1. Sodium 133. Creatinine 0.43, bilirubin 2. 2, AST 164, ALT 32, alkaline phosphatase 150, albumin 3.3. She had a CT scan of the abdomen and pelv is yesterday. This showed some edema of the colon wall and gallbladder wall consistent with portal h ypertension and ascites. She had a small volume ascites noted by CT scan. IMPRESSION: 1. Alcoholic hepatitis with elevated AST and bilirubin. She most likely has some underlying alcohol ic cirrhosis given the pancytopenia. 2. Pancytopenia, most likely secondary to hypersplenism from chronic liver disease. There could be a degree of bone marrow suppression from alcohol itself with this as well. 3. Symptomatic ascites. She has new onset ascites with abdominal distention. The CT scan does not show a large amount of ascites. It is primarily around the liver and then down the right side of her abdomen; however, I think this is causing significant symptoms for her. She will need to have SBP r uled out. She is being covered empirically with ceftriaxone in the meantime. Given that the ascites is primarily around the liver, I will defer this for Interventional Radiology for diagnostic tap. RECOMMENDATIONS: 1. Ceftriaxone. 2. Salt restricted diet. 3. Start low dose diuretics with furosemide 20 mg daily and spironolactone 50 mg daily. 4. Diagnostic paracentesis. Again, I will request this to be done with radiologic guidance tomorrow . 5. Alcohol cessation has been advised. 6. DT precautions and multiple vitamins, thiamine and folate.
[2018-04-11] MEDS: cefTRIAXone\\ROCEPHIN 2 GM in Sodium Chloride 0.9% 100 ML IVPB SCH (18:23)
[2018-04-11] MEDS: QUEtiapine Fumarate ER 50 MG TAB PO SCH (21:35)
[2018-04-12] MEDS ORDERED: Diazepam 5 MG TAB PO PRN (04:00)
[2018-04-12 05:24] LABS: #Eosinphils 0.1 thou/uL (0.0-0.7); #Lymphocytes 0.8 thou/uL (1.20-3.40); #Monocytes 0.4 thou/uL (0.11-0.59); #Neutrophils 1.6 thou/uL (1.40-6.50); %Basophils 1.2 % (0.0-1.0); %Eosinophils 2.4 % (0.0-10.0); %Lymphocytes 28.5 % (21.0-51.0); %Monocytes 14.6 % (0.0-10.0); %Neutrophils 53.4 % (42.0-75.0); Hemoglobin 9.4 g/dL (12.0-16.0); Mean Corpuscular HGB CONC 33.7 g/dL (32.0-36.0); Mean Corpuscular Hemoglobin 32.6 pg (27.0-31.0); Mean Corpuscular Volume 96.6 fL (78.0-98.0); Mean Platelet Volume 8.6 fL (7.4-10.4); Platelet Count 54 thou/uL (130-400); Red Blood Cell (RBC) Count 2.87 mill/uL (4.20-5.40); White Blood Cell (WBC) Count 2.9 thou/uL (4.8-10.8)
[2018-04-12 05:43] LABS: ALT (SGPT) 23 U/L (8-55); AST (SGOT) 109 U/L (5-34); Albumin 2.8 g/dL (3.5-5.0); Alkaline Phosphatase 112 U/L (40-150); Anion Gap 12 mmol/L (10-20); BUN (Urea Nitrogen) Less than 4 mg/dL (9.8-20.1); Bilirubin, Total 2.2 mg/dL (0.2-1.2); Calc. Creatinine Clearance 167 mL/min (70-130); Calcium 8.1 mg/dL (7.8-10.44); Carbon Dioxide 22 mmol/L (22-29); Chloride 101 mmol/L (98-107); Estimated GFR-MDRD Greater than 90; Globulin 3.4 g/dL (2.4-3.5); Glucose 78 mg/dL (70-105); Potassium 3.5 mmol/L (3.5-5.1); Protein, Total 6.2 g/dL (6.0-8.3); Sodium 131 mmol/L (136-145)
[2018-04-12] MEDS: traMADol HCl 50 MG TAB PO PRN ×2 (06:13→17:07)
[2018-04-12 07:50] LABS: INR-International Normal Ratio 1.5; PTT 38.3 SEC (22.9-36.1); Prothrombin Time 18.1 SEC (12.0-14.7)
[2018-04-12] MEDS: Multivitamin W/ Minerals 1 TAB PO SCH (08:08)
[2018-04-12] MEDS: FLUoxetine HCl 20 MG CAP PO SCH (08:08)
[2018-04-12] MEDS: Magnesium Oxide 400 MG TAB PO SCH (08:08)
[2018-04-12] MEDS: Lorazepam 1 MG TAB PO SCH ×3 (08:08→20:57)
[2018-04-12] MEDS ORDERED: Folic Acid 1 MG TAB PO SCH (09:00)
[2018-04-12] MEDS: Multivit, Therapeutic 1 TAB PO SCH (11:41)
[2018-04-12] MEDS: Folic Acid 1 MG TAB PO SCH (11:41)
[2018-04-12] MEDS ORDERED: Sodium Bicarbonate 2.5 MEQ/5 ML VIAL ONE (13:02)
[2018-04-12] MEDS ORDERED: Lidocaine 1% PF 5 ML VIAL ONE (13:02)
[2018-04-12] MEDS: metroNIDAZOLE 500 MG in Premix Bag 1 BAG IVPB SCH ×2 (14:52→21:02)
[2018-04-12 15:13] LABS: BF Color Yellow; BF RBC Count - Manual 778 /cumm; BF WBC/Nonhematics Ct. - Manua 63 /cumm; Body Fluid Source Ascites Body Fluid; Clarity Hazy (Clear); Tube # EDTA
[2018-04-12 15:47] LABS: BF Segmented Neutrophils 1 %; Cell Count Non Hematic 94 %; Lymphocytes 5 %
--- NOTE | 2018-04-12 15:53 | ULT ---
SONOGRAPHIC GUIDED PARACENTESIS: History: Ascites. Possible paradenitis. FINDINGS: After explaining the procedure and answering all questions, sonographic survey shows a small amount o f free fluid within the abdomen. Left lower quadrant approach was planned. Sterile technique, buffere d local anesthesia, sonographic guidance and an anterior left lower quadrant approach were used to ca refully advance a 22 gauge spinal needle into the free fluid. Total volume of 15 cc clear yellow liqu id was obtained and submitted to pathology for evaluation. Needle was removed. Patient tolerated the procedure well and was returned in unchanged condition. IMPRESSION: Technically successful sonographic guided paracentesis. Pathology is pending. POS: [facility]
[2018-04-12] MEDS: cefTRIAXone\\ROCEPHIN 2 GM in Sodium Chloride 0.9% 100 ML IVPB SCH (17:43)
[2018-04-12] MEDS: QUEtiapine Fumarate ER 50 MG TAB PO SCH (20:58)
--- NOTE | 2018-04-12 23:42 | PDOC.PN ---
- Subjective Encounter Start Date: 04/12/18 Encounter Start Time: 16:00 Subjective: nsg notes rev, flora ovn, no new c/o, overall feels better -: is worried about having cirrhosis and wants to go home tomorrow - Objective Vital Signs & Weight: Vital Signs (12 hours) Temp Pulse Resp BP BP Pulse Ox 04/12/18 23:21 145/90 H 04/12/18 20:50 98.6 F 94 16 96 04/12/18 20:00 98.6 F 94 16 138/63 138/63 96 04/12/18 16:10 98.7 F 87 17 129/68 95 I&O: 04/11/18 04/12/18 04/13/18 06:59 06:59 06:59 Intake Total 564 906 5966 Output Total 650 1400 850 Balance 272 -440 1310 Result Diagrams: 04/13/18 01:26 04/13/18 01:26 Phys Exam - Physical Examination HEENT: PERRLA, moist MMs, sclera anicteric Respiratory: no wheezing, no rales, no rhonchi, clear to auscultation bilateral Cardiovascular: RRR, no significant murmur, no rub Gastrointestinal: soft, positive bowel sounds Musculoskeletal: no edema, pulses present Neurological: moves all 4 limbs Psychiatric: normal affect, A&O x 3 Dx/Plan - Plan leukopenia with tachycardia and possible peritoneal infection in the setting of EtOH use/ cirrhosis with ascites sepsis - lactic acid cleared earlier ceftriaxone and metronidazole for empiric abx pending paracentesis fluid with cx concern that pt had prolonged QY And 70s wide complex tachyarrhythmia while on levofloxacin US guided paracentesis today apprec GI c/s episode of wide complex tachyarrhythmia self resolved, asymptomatic, on telemetry no further recurrence hypomagnesemia repleted - will recheck maintain on telemetry alcohol use with personal hx w/d and seizures with w/d ASE protocol with short acting agents close neurological monitoring -caution with pain medications which patient is currently requesting anemia - chronic anemia closely monitor currently otherwise hemodynamically stable thrombocytopenia suspect chronic component from cirrhosis continue to monitor for ssx of bleeding activity: as nick dvt ppx: seq plts too low for chemical ppx at this time Review of Systems - Medications/Allergies Allergies/Adverse Reactions: Allergies Allergy/AdvReac Type Severity Reaction Status Date / Time No Known Allergies Allergy Verified 04/11/18 01:00 Medications: Current Medications Diazepam (Valium) 5 mg PO Q4H PRN PRN Reason: FOR ASE 10 OR GREATER Last Admin: 04/12/18 23:41 Dose: 5 mg Fluoxetine HCl (Prozac) 20 mg PO DAILY [facility] Last Admin: 04/12/18 08:08 Dose: 20 mg Folic Acid (Folvite) 1 mg PO 1200 [facility] Last Admin: 04/12/18 11:41 Dose: 1 mg Ceftriaxone Sodium 2 gm/ (Sodium Chloride) 100 mls @ 200 mls/hr IVPB Q24HR [facility] Last Admin: 04/12/18 17:43 Dose: 100 mls Metronidazole 500 mg/ Device 100 mls @ 100 mls/hr IVPB Q8HR [facility] Last Admin: 04/13/18 05:40 Dose: 100 mls Iron/Minerals/Multivitamins (Theragran M) 1 tab PO DAILY [facility] Last Admin: 04/12/18 08:08 Dose: 1 tab Lorazepam (Ativan) 1 mg PO TID [facility] Last Admin: 04/12/18 20:57 Dose: 1 mg Lorazepam (Ativan) 2 mg SLOW IVP Q4H PRN PRN Reason: ANXIETY/AGITATION Lorazepam (Ativan) 2 mg SLOW IVP NOW [facility] Stop: 04/13/18 06:45 Last Admin: 04/13/18 04:58 Dose: Not Given Magnesium Oxide (Magnesium Oxide) 400 mg PO DAILY [facility] Last Admin: 04/12/18 08:08 Dose: 400 mg Metoprolol Tartrate (Lopressor) 12.5 mg PO BID [facility] Metoprolol Tartrate (Lopressor) 12.5 mg PO NOW [facility] Stop: 04/13/18 07:45 Last Admin: 04/13/18 05:38 Dose: 12.5 mg Multivitamins (Theragran) 1 tab PO 1200 [facility] Last Admin: 04/12/18 11:41 Dose: 1 tab Ondansetron HCl (Zofran) 4 mg IVP Q6H PRN PRN Reason: Nausea/Vomiting Last Admin: 04/11/18 21:37 Dose: 4 mg Pantoprazole Sodium (Protonix) 40 mg PO DAILY [facility] Last Admin: 04/12/18 08:07 Dose: 40 mg Quetiapine Fumarate (Seroquel Xr) 150 mg PO HS [facility] Last Admin: 04/12/18 20:58 Dose: 150 mg Sodium Chloride (Flush - Normal Saline) 10 ml IVF Q12HR [facility] Last Admin: 04/12/18 20:58 Dose: 10 ml Sodium Chloride (Flush - Normal Saline) 10 ml IVF PRN PRN PRN Reason: Saline Flush Last Admin: 04/13/18 04:37 Dose: 10 ml Thiamine HCl (Thiamine) 100 mg PO 1200 [facility] Last Admin: 04/12/18 11:41 Dose: 100 mg Tramadol HCl (Ultram) 50 mg PO Q6H PRN PRN Reason: Pain Last Admin: 04/12/18 17:07 Dose: 50 mg
[2018-04-13 01:54] LABS: #Basophils 0.1 thou/uL (0.0-0.2); #Eosinphils 0.1 thou/uL (0.0-0.7); #Lymphocytes 1.3 thou/uL (1.20-3.40); #Monocytes 0.6 thou/uL (0.11-0.59); %Basophils 1.2 % (0.0-1.0); %Eosinophils 2.4 % (0.0-10.0); %Lymphocytes 32.1 % (21.0-51.0); %Monocytes 14.7 % (0.0-10.0); %Neutrophils 49.5 % (42.0-75.0); Hemoglobin 10.2 g/dL (12.0-16.0); Mean Corpuscular HGB CONC 33.8 g/dL (32.0-36.0); Mean Corpuscular Hemoglobin 32.6 pg (27.0-31.0); Mean Corpuscular Volume 96.4 fL (78.0-98.0); Mean Platelet Volume 8.4 fL (7.4-10.4); Platelet Count 55 thou/uL (130-400); RBC Distribution Width 17.9 % (11.5-14.5); Red Blood Cell (RBC) Count 3.14 mill/uL (4.20-5.40)
[2018-04-13 02:20] LABS: ALT (SGPT) 21 U/L (8-55); AST (SGOT) 115 U/L (5-34); Albumin 3.1 g/dL (3.5-5.0); Alkaline Phosphatase 136 U/L (40-150); Anion Gap 13 mmol/L (10-20); BUN (Urea Nitrogen) Less than 4 mg/dL (9.8-20.1); Bilirubin, Total 2.5 mg/dL (0.2-1.2); Calc. Creatinine Clearance 157 mL/min (70-130); Calcium 8.8 mg/dL (7.8-10.44); Carbon Dioxide 21 mmol/L (22-29); Chloride 102 mmol/L (98-107); Estimated GFR-MDRD Greater than 90; Globulin 3.9 g/dL (2.4-3.5); Glucose 88 mg/dL (70-105); Potassium 3.8 mmol/L (3.5-5.1); Sodium 132 mmol/L (136-145)
[2018-04-13] MEDS ORDERED: Lorazepam 2 MG/ML VIAL ONE ×2 (03:49→04:34)
--- NOTE | 2018-04-13 03:53 | PDOC.EVN ---
Event Note - Event Note Event Note: rapid response activated since pt was found on the floor, ct head is negative, sheis withdrawal , shira step up with benzos iv, we will monitor and treat accordingly.
[2018-04-13] MEDS ORDERED: Lorazepam 2 MG/ML VIAL SLOW IVP PRN (03:56)
[2018-04-13] MEDS ORDERED: Lorazepam 2 MG/ML VIAL SLOW IVP SCH (04:45)
--- NOTE | 2018-04-13 05:11 | PRG ---
DATE OF SERVICE: 04/12/2018 SUBJECTIVE: Ms. Osorio feels little bit better. She is starting to eat today, she has had a paracente sis. PHYSICAL EXAMINATION: VITAL SIGNS: Temperature is 98, pulse 87, blood pressure 129/68. ABDOMEN: Soft, nontender. LUNGS: Clear. HEART: Regular rate and rhythm without clicks, or murmurs. EXTREMITIES: Reveal no clubbing, cyanosis or edema. LABORATORY DATA: White count is 2.9, hemoglobin is 9.4, platelet count 54,000. INR 1.5, BUN and cre atinine of 4 and 0.45, sodium 131, potassium 3.5, magnesium was 1.4, bilirubin 2.2, AST and ALT are 1 09 and 23, albumin 2.8. Paracentesis showed 63 white blood cells, . ASSESSMENT: Alcoholic hepatitis, long history of alcohol abuse. The patient has been here under ___ __ in the past with same date of . We have reviewed her old records there and previous workups. RECOMMENDATIONS: 1. Alcohol cessation. I have talked with her about the fact that if she continues to drink alcohol, she is going to kill herself with alcoholic hepatitis. She should be offered some type of rehabilit ation or outpatient therapy. I have recommended her AA. 2. Recommend multivitamin, thiamine, and folate daily. 3. At this time, I see no need for antibiotics nor IV fluids with sodium restrictor. At this time, we will follow from a distance. If I can be of any further assistance in her care, please do not hes itate to contact me.
[2018-04-13] MEDS: metroNIDAZOLE 500 MG in Premix Bag 1 BAG IVPB SCH ×3 (05:40→22:31)
[2018-04-13] MEDS ORDERED: Metoprolol Tartrate 25 MG TAB PO SCH ×2 (05:45→09:00)
[2018-04-13] MEDS ORDERED: Sodium Chloride 0.65% Nasal 44 ML BOT EA NARE PRN (07:35)
[2018-04-13] MEDS ORDERED: Bisacodyl 10 MG SUPP PR PRN (07:35)
[2018-04-13] MEDS ORDERED: Chloraseptic Spray 180 ml Bottle PO PRN (07:35)
[2018-04-13] MEDS ORDERED: Artificial Tear Sol 15 ML BOT EA EYE PRN (07:35)
[2018-04-13] MEDS ORDERED: Diabetic Tussin 200 MG/10 ML UDCUP PO PRN (07:35)
[2018-04-13] MEDS ORDERED: Loperamide HCl 2 MG CAP PO PRN (07:35)
[2018-04-13] MEDS ORDERED: cloNIDine 0.1 MG TAB PO PRN (07:35)
[2018-04-13] MEDS ORDERED: Ondansetron ODT 4 MG TAB PO PRN (07:35)
[2018-04-13] MEDS ORDERED: Loratadine 10 MG TAB PO PRN (07:35)
[2018-04-13] MEDS ORDERED: Mag-Al 1200 mg/1200 mg/30 ML UDCUP PO PRN (07:35)
[2018-04-13] MEDS ORDERED: Eucerin (Mineral Oil/Petrolatum,White) 30 gm Jar TOP PRN (07:35)
[2018-04-13] MEDS ORDERED: Labetalol HCl 100 MG/20 ML VIAL SLOW IVP PRN (07:35)
--- NOTE | 2018-04-13 08:21 | CT ---
PRELIMINARY REPORT/[facility]/EMERGENTY AFTER-HOURS PROCEDURE CT Head Without Intravenous Contrast CLINICAL HISTORY: 53 years old, female; Injury or trauma; Fall; Initial encounter; Blunt trauma (contusions or hematoma s); Consciousness not specified; Patient HX: Inpatient, unwitnessed fall in room, hit head, unkown lo c TECHNIQUE: Axial computed tomography images of the head/brain without intravenous contrast. COMPARISON: No relevant prior studies available. FINDINGS: Brain: No evidence of acute intracranial hemorrhage, extraxial fluid or midline shift. Mild cerebral atrophy. Mild white matter low density changes most compatible with cerebral leukoencephalopathy rela ivan to chronic small vessel ischemic disease. Cerebellum atrophic; otherwise, posterior fossa structures within normal limits. Ventricles: Normal. No ventriculomegaly. Bones/joints: Normal. No acute fracture. Sinuses: Mild bilateral sphenoid and sinus fluid/soft tissue. Mastoid air cells: Normal as visualized. No mastoid effusion. Soft tissues: Mild right frontoparietal scalp swelling-hematoma. IMPRESSION: 1. No evidence of acute intracranial hemorrhage, extraxial fluid or midline shift. 2. Mild right frontoparietal scalp swelling-hematoma. 3. Mild bilateral sphenoid and sinus fluid/soft tissue. Thank you for allowing us to participate in the care of your patient. Dictated and Authenticated by: Erick Urbina MD 04/13/2018 2:36 AM Central Time ([place] & [place]) FINAL REPORT CT HEAD NONCONTRAST PERFORMED ON AN EMERGENCY BASIS: Date: 04/13/18 Time: 0136 hours HISTORY: Fall. Head injury. COMPARISON: 09/11/14. FINDINGS: Findings agree with the preliminary report by Gaby. Right scalp swelling. No acute intracranial abnor malities are demonstrated. POS: [facility]
[2018-04-13 08:23] LABS: Magnesium 1.4 mg/dL (1.6-2.6)
[2018-04-13] MEDS: FLUoxetine HCl 20 MG CAP PO SCH (08:25)
[2018-04-13] MEDS: Multivitamin W/ Minerals 1 TAB PO SCH (08:25)
[2018-04-13] MEDS: Lorazepam 1 MG TAB PO SCH ×3 (08:25→22:30)
[2018-04-13] MEDS: Potassium Chloride 20 MEQ TAB PO SCH (08:25)
[2018-04-13] MEDS: Magnesium Oxide 400 MG TAB PO SCH (08:25)
[2018-04-13] MEDS: Metoprolol Tartrate 25 MG TAB PO SCH ×2 (08:25→22:30)
[2018-04-13 08:57] LABS: HBCM Index 0.08 S/CO (0-0.79); HBSAg Index 0.21 S/CO (0-0.99); Hep A IgM AB Non-Reactive (NonReactive); Hep A IgM S/CO 0.21 S/CO (0-0.79); Hep B Surf Ag Non-Reactive S/CO (NonReactive); Hep C IgG Ab Non-Reactive (NonReactive); Hep C Index 0.09 S/CO (0-0.79); Hepatitis B Core IGM Abs Non-Reactive (NonReactive)
[2018-04-13] MEDS ORDERED: Potassium Phosphate 12 MMOL in Sodium Chloride 0.9% 100 ML IVPB SCH (09:30)
[2018-04-13] MEDS ORDERED: Magnesium Sulfate 3 GM in Sodium Chloride 0.9% 100 ML IVPB SCH (09:30)
--- NOTE | 2018-04-13 10:33 | PDOC.PN ---
- Subjective Encounter Start Date: 04/13/18 Encounter Start Time: 07:40 -: old records requested/rev pt had fall and code green was called, ct brain showed only right side scalp hematoma, still has withdrawl sitter bedside - Objective MAR Reviewed: Yes Vital Signs & Weight: Vital Signs (12 hours) Temp Pulse Pulse Resp Resp BP BP 04/13/18 08:00 97.0 F L 96 16 132/89 04/13/18 07:29 97.0 F L 96 16 04/13/18 03:18 151/88 H 04/13/18 03:17 99.5 F 125 H 18 04/13/18 01:16 130 H 22 H 141/82 H 04/12/18 23:39 98.6 F 109 H 20 04/12/18 23:21 145/90 H BP Pulse Ox Pulse Ox 04/13/18 08:00 04/13/18 07:29 132/89 95 04/13/18 03:18 04/13/18 03:17 151/88 H 93 L 04/13/18 01:16 98 04/12/18 23:39 145/90 H 96 04/12/18 23:21 I&O: 04/12/18 04/13/18 04/14/18 06:59 06:59 06:59 Intake Total 960 2160 Output Total 1400 850 Balance -440 1310 Result Diagrams: 04/13/18 01:26 04/13/18 01:26 Additional Labs: Accuchecks 04/13/18 01:21 POC Glucose 105 Radiology Reviewed by me: Yes (ct brain) EKG Reviewed by me: Yes (nsr) Phys Exam - Physical Examination Constitutional: NAD scalp hematoma on right side HEENT: PERRLA, moist MMs, sclera anicteric Neck: no JVD, supple Respiratory: no wheezing, no rales, no rhonchi coarse sound at base Cardiovascular: RRR, no significant murmur, no rub Gastrointestinal: soft, non-tender, no distention, positive bowel sounds Musculoskeletal: no edema, pulses present Neurological: moves all 4 limbs tremor Lymphatic: no nodes Psychiatric: normal affect Skin: normal turgor Deviation from normal: many bruise Dx/Plan (1) Alcohol intoxication Status: Acute (2) Alcohol withdrawal syndrome Code(s): F10.239 - ALCOHOL DEPENDENCE WITH WITHDRAWAL, UNSPECIFIED Status: Acute (3) Ascites Code(s): R18.8 - OTHER ASCITES Status: Acute (4) Aspiration pneumonia Code(s): J69.0 - PNEUMONITIS DUE TO INHALATION OF FOOD AND VOMIT Status: Acute (5) Hypokalemia Code(s): E87.6 - HYPOKALEMIA Status: Acute (6) Hypomagnesemia Code(s): E83.42 - HYPOMAGNESEMIA Status: Acute (7) Hyponatremia Code(s): E87.1 - HYPO-OSMOLALITY AND HYPONATREMIA Status: Acute (8) Hypophosphatemia Code(s): E83.39 - OTHER DISORDERS OF PHOSPHORUS METABOLISM Status: Acute (9) Steatohepatitis, alcoholic Code(s): K70.10 - ALCOHOLIC HEPATITIS WITHOUT ASCITES Status: Acute (10) Anxiety and depression Code(s): F41.9 - ANXIETY DISORDER, UNSPECIFIED; F32.9 - MAJOR DEPRESSIVE DISORDER, SINGLE EPISODE, UNSPECIFIED Status: Chronic (11) Chronic alcoholism Code(s): F10.20 - ALCOHOL DEPENDENCE, UNCOMPLICATED Status: Chronic (12) Coagulopathy Status: Chronic (13) Fibromyalgia Status: Chronic (14) Hyperbilirubinemia Code(s): E80.6 - OTHER DISORDERS OF BILIRUBIN METABOLISM Status: Chronic (15) Hypoalbuminemia Code(s): E88.09 - OTH DISORDERS OF PLASMA-PROTEIN METABOLISM, NEC Status: Chronic (16) Pancytopenia Code(s): D61.818 - OTHER PANCYTOPENIA Status: Chronic (17) Thrombocytopenia Code(s): D69.6 - THROMBOCYTOPENIA, UNSPECIFIED Status: Chronic (18) Lactic acidosis Code(s): E87.2 - ACIDOSIS Status: Resolved - Plan cont current plan of care, continue antibiotics * replace potassium phosphate * replace magnesium sulfate * treat alcohol withdrawl with benzo * bedside sitter * medication reviewed as below * symptomatic treatment * increase metoprolol 25 bid * add folic acid, vitamin b12, thiamin. * continue rocephin and flagyl Review of Systems - Review of Systems Other: not reliable due to confused state - Medications/Allergies Allergies/Adverse Reactions: Allergies Allergy/AdvReac Type Severity Reaction Status Date / Time No Known Allergies Allergy Verified 04/11/18 01:00 Medications: Current Medications Al Hydroxide/Mg Hydroxide (Maalox) 15 ml PO Q4H PRN PRN Reason: Heartburn or Indigestion Artificial Tears (Tears Renewed 15ml Bottle) 0 drop EA EYE PRN PRN PRN Reason: Dry Eyes Bisacodyl (Dulcolax) 10 mg [place] DAILYPRN PRN PRN Reason: Constipation Clonidine (Catapres) 0.1 mg PO Q4H PRN PRN Reason: Systolic BP > 180 Diazepam (Valium) 5 mg PO Q4H PRN PRN Reason: FOR ASE 10 OR GREATER Last Admin: 04/12/18 23:41 Dose: 5 mg Fluoxetine HCl (Prozac) 20 mg PO DAILY [facility] Last Admin: 04/13/18 08:25 Dose: 20 mg Folic Acid (Folvite) 1 mg PO 1200 [facility] Last Admin: 04/12/18 11:41 Dose: 1 mg Guaifenesin (Robitussin Sf) 200 mg PO Q4H PRN PRN Reason: Cough Ceftriaxone Sodium 2 gm/ (Sodium Chloride) 100 mls @ 200 mls/hr IVPB Q24HR [facility] Last Admin: 04/12/18 17:43 Dose: 100 mls Metronidazole 500 mg/ Device 100 mls @ 100 mls/hr IVPB Q8HR [facility] Last Admin: 04/13/18 05:40 Dose: 100 mls Magnesium Sulfate 3 gm/ Sodium (Chloride) 106 mls @ 100 mls/hr IVPB NOW [facility] Stop: 04/13/18 12:00 Last Admin: 04/13/18 09:51 Dose: 106 mls Potassium Phosphate 12 mmol/ (Sodium Chloride) 104 mls @ 25 mls/hr IVPB NOW [facility] Stop: 04/13/18 12:00 Last Admin: 04/13/18 10:31 Dose: 104 mls Iron/Minerals/Multivitamins (Theragran M) 1 tab PO DAILY [facility] Last Admin: 04/13/18 08:25 Dose: 1 tab Labetalol HCl (Normodyne) 20 mg SLOW IVP Q4H PRN PRN Reason: Systolic BP > 180 Lactulose (Lactulose) 10 gm PO DAILYPRN PRN PRN Reason: Constipation Loperamide HCl (Imodium) 2 mg PO PRN PRN PRN Reason: Diarrhea/Loose Stools Loratadine (Claritin) 10 mg PO DAILYPRN PRN PRN Reason: Sinus Symptoms Lorazepam (Ativan) 1 mg PO TID [facility] Last Admin: 04/13/18 08:25 Dose: 1 mg Lorazepam (Ativan) 2 mg SLOW IVP Q4H PRN PRN Reason: ANXIETY/AGITATION Magnesium Hydroxide (Milk Of Magnesium) 30 ml PO DAILYPRN PRN PRN Reason: Constipation Magnesium Oxide (Magnesium Oxide) 400 mg PO DAILY [facility] Last Admin: 04/13/18 08:25 Dose: 400 mg Metoprolol Tartrate (Lopressor) 25 mg PO BID [facility] Last Admin: 04/13/18 08:25 Dose: 25 mg Mineral Oil/White Petrolatum (Eucerin Cream) 0 gm TOP BIDPRN PRN PRN Reason: Dry Skin Multivitamins (Theragran) 1 tab PO 1200 [facility] Last Admin: 04/12/18 11:41 Dose: 1 tab Ondansetron HCl (Zofran) 4 mg IVP Q6H PRN PRN Reason: Nausea/Vomiting Last Admin: 04/11/18 21:37 Dose: 4 mg Ondansetron HCl (Zofran Odt) 4 mg PO Q6H PRN PRN Reason: Nausea/Vomiting Pantoprazole Sodium (Protonix) 40 mg PO DAILY [facility] Last Admin: 04/13/18 08:25 Dose: 40 mg Phenol (Chloraseptic [place] 180 Ml Bot) 0 ml PO PRN PRN PRN Reason: Sore Throat Potassium Chloride (K-Dur) 20 meq PO QAM-WM [facility] Last Admin: 04/13/18 08:25 Dose: 20 meq Quetiapine Fumarate (Seroquel Xr) 150 mg PO HS [facility] Last Admin: 04/12/18 20:58 Dose: 150 mg Sodium Chloride (Flush - Normal Saline) 10 ml IVF Q12HR [facility] Last Admin: 04/13/18 08:26 Dose: 10 ml Sodium Chloride (Flush - Normal Saline) 10 ml IVF PRN PRN PRN Reason: Saline Flush Last Admin: 04/13/18 04:37 Dose: 10 ml Sodium Chloride ([place] Nasal [place] 0.65%) 0 ml EA NARE QIDPRN PRN PRN Reason: Nasal Congestion Temazepam (Restoril) 15 mg PO HSPRN PRN PRN Reason: Insomnia Thiamine HCl (Thiamine) 100 mg PO 1200 [facility] Last Admin: 04/12/18 11:41 Dose: 100 mg Tramadol HCl (Ultram) 50 mg PO Q6H PRN PRN Reason: Pain Last Admin: 04/12/18 17:07 Dose: 50 mg
[2018-04-13] MEDS: Folic Acid 1 MG TAB PO SCH (11:46)
[2018-04-13] MEDS: Multivit, Therapeutic 1 TAB PO SCH (11:46)
[2018-04-13] MEDS: cefTRIAXone\\ROCEPHIN 2 GM in Sodium Chloride 0.9% 100 ML IVPB SCH (15:45)
--- NOTE | 2018-04-13 22:02 | PRG ---
DATE OF SERVICE: 04/13/2018 SUBJECTIVE: Ms. Osorio is pretty sleepy. She is receiving some Ativan for withdrawal. Last night, sh rebecca developed some mild DTs and go to bed and fell and hit her head. OBJECTIVE: VITAL SIGNS: Temperature is 97.2, pulse 76, respirations 16, pressure 126/71. She has hematoma brow . NEUROLOGIC: She is alert and oriented to person and place. She thinks it is . She denies a ny overt headaches. She denies any visual changes. ABDOMEN: Soft and nontender. LABORATORY DATA: White count 4, hemoglobin 10.2, platelet count 55,000. Sodium 132, potassium 3.8, BUN and creatinine are 4 and 0.48. Bilirubin is 2.5, AST and ALT are 150 and 21, total protein 7, al bumin 3.1. ASSESSMENT: 1. Alcoholic hepatitis, stable. She does not meet Jenkins's criteria. 2. Alcohol withdrawal, now doing better on routine Ativan and p.r.n. Valium. 3. Ascites with no signs of SBP. 4. History of chronic alcohol abuse, on multivitamin, thiamine, and folate. RECOMMENDATIONS: Post nutrition, Ensure and Boost. There are no signs of SBP and antibiotics will b e stopped. We will leave that up to the Internal Medicine no matter worth of treating anything else, but if it is for SBP prophylaxis that can be discontinued. At this time, we will follow from a dist ance. Dr. Mcgowan will be avionics systems integration specialist over the weekend if needed. Please do not hesitate to call him.
[2018-04-13] MEDS: QUEtiapine Fumarate ER 50 MG TAB PO SCH (22:30)
[2018-04-13] MEDS: traMADol HCl 50 MG TAB PO PRN (22:35)
[2018-04-13] MEDS: Temazepam 15 MG CAP PO PRN (22:35)
[2018-04-14 05:52] LABS: ALT (SGPT) 18 U/L (8-55); AST (SGOT) 84 U/L (5-34); Albumin 2.7 g/dL (3.5-5.0); Alkaline Phosphatase 113 U/L (40-150); Anion Gap 10 mmol/L (10-20); BUN (Urea Nitrogen) Less than 4 mg/dL (9.8-20.1); Bilirubin, Total 2.5 mg/dL (0.2-1.2); Calc. Creatinine Clearance 160 mL/min (70-130); Calcium 8.4 mg/dL (7.8-10.44); Carbon Dioxide 21 mmol/L (22-29); Chloride 103 mmol/L (98-107); Estimated GFR-MDRD Greater than 90; Globulin 3.6 g/dL (2.4-3.5); Glucose 83 mg/dL (70-105); Potassium 3.3 mmol/L (3.5-5.1); Protein, Total 6.3 g/dL (6.0-8.3); Sodium 131 mmol/L (136-145)
[2018-04-14] MEDS: metroNIDAZOLE 500 MG in Premix Bag 1 BAG IVPB SCH ×3 (06:04→20:59)
[2018-04-14 06:36] LABS: Anisocytosis SLIGHT = 6-15 cells (100X) (0-5/hpf); Band 7 % (5-11); Hemoglobin 9.7 g/dL (12.0-16.0); Lymphocytes 18 % (21-51); MDiff Complete? YES; Mean Corpuscular HGB CONC 32.9 g/dL (32.0-36.0); Mean Corpuscular Hemoglobin 32.4 pg (27.0-31.0); Mean Corpuscular Volume 98.5 fL (78.0-98.0); Mean Platelet Volume 7.4 fL (7.4-10.4); Monocytes 8 % (0-10); Neutrophil 66 % (42-75); PLT Morphology Comment Appears Decreased; Platelet Count 64 thou/uL (130-400); RBC Distribution Width 18.1 % (11.5-14.5); Target Cells SLIGHT = 2-5 cells (100X) (0-1/hpf); White Blood Cell (WBC) Count 4.3 thou/uL (4.8-10.8)
[2018-04-14] MEDS ORDERED: Potassium Chloride 20 MEQ TAB PO SCH (06:45)
[2018-04-14] MEDS: Magnesium Oxide 400 MG TAB PO SCH ×2 (08:12→20:54)
[2018-04-14] MEDS: Multivitamin W/ Minerals 1 TAB PO SCH (08:12)
[2018-04-14] MEDS: FLUoxetine HCl 20 MG CAP PO SCH (08:12)
[2018-04-14] MEDS: Metoprolol Tartrate 25 MG TAB PO SCH ×2 (08:13→20:53)
[2018-04-14] MEDS: Lorazepam 1 MG TAB PO SCH ×3 (08:13→20:53)
[2018-04-14] MEDS: Potassium Chloride 20 MEQ TAB PO SCH (08:55)
[2018-04-14] MEDS ORDERED: Magnesium Sulfate 4 GM in Sodium Chloride 0.9% 250 ML 250 ML IVPB SCH (10:45)
--- NOTE | 2018-04-14 11:49 | EKG ---
Test Reason : Blood Pressure : / mmHG Vent. Rate : 083 BPM Atrial Rate : 083 BPM P-R Int : 208 ms QRS Dur : 094 ms QT Int : 420 ms P-R-T Axes : 055 044 047 degrees QTc Int : 493 ms Normal sinus rhythm Prolonged QT Abnormal ECG Confirmed by YESENIA HICKS, DELFINA ([id number]), supervising editor trailer SHEFALI RCIO ([id number]) on 04/14/2018 11:49:08 AM Referred By: Confirmed By:DEFLINA PATTERSON MD
--- NOTE | 2018-04-14 12:19 | PDOC.PN ---
- Subjective Encounter Start Date: 04/14/18 Encounter Start Time: 08:45 Patient seen and examined. No new complaints. No overnight events - Objective MAR Reviewed: Yes Vital Signs & Weight: Vital Signs (12 hours) Temp Pulse Resp BP Pulse Ox 04/14/18 08:06 98.8 F 74 18 105/69 96 04/14/18 04:15 98.1 F 70 16 99/56 L 95 I&O: 04/13/18 04/14/18 04/15/18 06:59 06:59 06:59 Intake Total 2160 440 480 Output Total 850 1100 Balance 1310 440 -620 Result Diagrams: 04/14/18 04:48 04/14/18 04:48 Phys Exam - Physical Examination Constitutional: NAD HEENT: PERRLA, moist MMs Neck: no nodes, no JVD, supple, full ROM Respiratory: no wheezing, no rales, no rhonchi Cardiovascular: RRR, no significant murmur, no rub Gastrointestinal: soft, non-tender, no distention, positive bowel sounds Musculoskeletal: no edema, pulses present Neurological: non-focal, normal sensation Lymphatic: no nodes Psychiatric: normal affect Skin: no rash, normal turgor Dx/Plan (1) Alcohol intoxication Status: Acute (2) Alcohol withdrawal syndrome Code(s): F10.239 - ALCOHOL DEPENDENCE WITH WITHDRAWAL, UNSPECIFIED Status: Acute (3) Ascites Code(s): R18.8 - OTHER ASCITES Status: Acute (4) Aspiration pneumonia Code(s): J69.0 - PNEUMONITIS DUE TO INHALATION OF FOOD AND VOMIT Status: Acute (5) Hypokalemia Code(s): E87.6 - HYPOKALEMIA Status: Acute (6) Hypomagnesemia Code(s): E83.42 - HYPOMAGNESEMIA Status: Acute (7) Hyponatremia Code(s): E87.1 - HYPO-OSMOLALITY AND HYPONATREMIA Status: Acute (8) Hypophosphatemia Code(s): E83.39 - OTHER DISORDERS OF PHOSPHORUS METABOLISM Status: Acute (9) Steatohepatitis, alcoholic Code(s): K70.10 - ALCOHOLIC HEPATITIS WITHOUT ASCITES Status: Acute (10) Anxiety and depression Code(s): F41.9 - ANXIETY DISORDER, UNSPECIFIED; F32.9 - MAJOR DEPRESSIVE DISORDER, SINGLE EPISODE, UNSPECIFIED Status: Chronic (11) Chronic alcoholism Code(s): F10.20 - ALCOHOL DEPENDENCE, UNCOMPLICATED Status: Chronic (12) Coagulopathy Status: Chronic (13) Fibromyalgia Status: Chronic (14) Hyperbilirubinemia Code(s): E80.6 - OTHER DISORDERS OF BILIRUBIN METABOLISM Status: Chronic (15) Hypoalbuminemia Code(s): E88.09 - OTH DISORDERS OF PLASMA-PROTEIN METABOLISM, NEC Status: Chronic (16) Pancytopenia Code(s): D61.818 - OTHER PANCYTOPENIA Status: Chronic (17) Thrombocytopenia Code(s): D69.6 - THROMBOCYTOPENIA, UNSPECIFIED Status: Chronic (18) Lactic acidosis Code(s): E87.2 - ACIDOSIS Status: Resolved - Plan cont current plan of care, continue antibiotics, PT/OT * replace potassium * replace magnesium * continue rocephin and flagyl for aspiration pneumonia * medication reviewed as below * symptomatic treatment * DC tele * Transfer to medical * continue PT * today more stable than yesterday. Review of Systems - Review of Systems Eyes: negative: Pain, Vision Change, Conjunctivae Inflammation, Eyelid Inflammation, Redness, Other ENT: negative: Ear Pain, Ear Discharge, Nose Pain, Nose Discharge, Nose Congestion, Mouth Pain, Mouth Swelling, Throat Pain, Throat Swelling, Other Respiratory: negative: Cough, Dry, Shortness of Breath, Hemoptysis, SOB with Excertion, Pleuritic Pain, Sputum, Wheezing Cardiovascular: negative: chest pain, palpitations, orthopnea, paroxysmal nocturnal dyspnea, edema, light headedness, other Gastrointestinal: negative: Nausea, Vomiting, Abdominal Pain, Diarrhea, Constipation, Melena, Hematochezia, Other Genitourinary: negative: Dysuria, Frequency, Incontinence, Hematuria, Retention , Other Musculoskeletal: negative: Neck Pain, Shoulder Pain, Arm Pain, Back Pain, Hand Pain, Leg Pain, Foot Pain, Other Skin: negative: Rash, Lesions, Giovanni, Bruising, Other - Medications/Allergies Allergies/Adverse Reactions: Allergies Allergy/AdvReac Type Severity Reaction Status Date / Time No Known Allergies Allergy Verified 04/11/18 01:00 Medications: Current Medications Al Hydroxide/Mg Hydroxide (Maalox) 15 ml PO Q4H PRN PRN Reason: Heartburn or Indigestion Artificial Tears (Tears Renewed 15ml Bottle) 0 drop EA EYE PRN PRN PRN Reason: Dry Eyes Bisacodyl (Dulcolax) 10 mg [place] DAILYPRN PRN PRN Reason: Constipation Clonidine (Catapres) 0.1 mg PO Q4H PRN PRN Reason: Systolic BP > 180 Diazepam (Valium) 5 mg PO Q4H PRN PRN Reason: FOR ASE 10 OR GREATER Last Admin: 04/12/18 23:41 Dose: 5 mg Fluoxetine HCl (Prozac) 20 mg PO DAILY [facility] Last Admin: 04/14/18 08:12 Dose: 20 mg Folic Acid (Folvite) 1 mg PO 1200 [facility] Last Admin: 04/13/18 11:46 Dose: 1 mg Guaifenesin (Robitussin Sf) 200 mg PO Q4H PRN PRN Reason: Cough Ceftriaxone Sodium 2 gm/ (Sodium Chloride) 100 mls @ 200 mls/hr IVPB Q24HR [facility] Last Admin: 04/13/18 15:45 Dose: 100 mls Metronidazole 500 mg/ Device 100 mls @ 100 mls/hr IVPB Q8HR [facility] Last Admin: 04/14/18 06:04 Dose: 100 mls Magnesium Sulfate 4 gm/ Sodium (Chloride) 258 mls @ 86 mls/hr IVPB NOW [facility] Stop: 04/14/18 13:44 Iron/Minerals/Multivitamins (Theragran M) 1 tab PO DAILY [facility] Last Admin: 04/14/18 08:12 Dose: 1 tab Labetalol HCl (Normodyne) 20 mg SLOW IVP Q4H PRN PRN Reason: Systolic BP > 180 Lactulose (Lactulose) 10 gm PO DAILYPRN PRN PRN Reason: Constipation Loperamide HCl (Imodium) 2 mg PO PRN PRN PRN Reason: Diarrhea/Loose Stools Loratadine (Claritin) 10 mg PO DAILYPRN PRN PRN Reason: Sinus Symptoms Lorazepam (Ativan) 1 mg PO TID [facility] Last Admin: 04/14/18 08:13 Dose: 1 mg Lorazepam (Ativan) 2 mg SLOW IVP Q4H PRN PRN Reason: ANXIETY/AGITATION Magnesium Hydroxide (Milk Of Magnesium) 30 ml PO DAILYPRN PRN PRN Reason: Constipation Magnesium Oxide (Magnesium Oxide) 400 mg PO BID [facility] Metoprolol Tartrate (Lopressor) 25 mg PO BID [facility] Last Admin: 04/14/18 08:13 Dose: 25 mg Mineral Oil/White Petrolatum (Eucerin Cream) 0 gm TOP BIDPRN PRN PRN Reason: Dry Skin Multivitamins (Theragran) 1 tab PO 1200 [facility] Last Admin: 04/13/18 11:46 Dose: 1 tab Ondansetron HCl (Zofran) 4 mg IVP Q6H PRN PRN Reason: Nausea/Vomiting Last Admin: 04/11/18 21:37 Dose: 4 mg Ondansetron HCl (Zofran Odt) 4 mg PO Q6H PRN PRN Reason: Nausea/Vomiting Pantoprazole Sodium (Protonix) 40 mg PO DAILY [facility] Last Admin: 04/14/18 08:12 Dose: 40 mg Phenol (Chloraseptic [place] 180 Ml Bot) 0 ml PO PRN PRN PRN Reason: Sore Throat Potassium Chloride (K-Dur) 20 meq PO QAM-WM [facility] Last Admin: 04/14/18 08:55 Dose: 20 meq Quetiapine Fumarate (Seroquel Xr) 150 mg PO HS [facility] Last Admin: 04/13/18 22:30 Dose: 150 mg Sodium Chloride (Flush - Normal Saline) 10 ml IVF Q12HR [facility] Last Admin: 04/14/18 08:13 Dose: 10 ml Sodium Chloride (Flush - Normal Saline) 10 ml IVF PRN PRN PRN Reason: Saline Flush Last Admin: 04/13/18 04:37 Dose: 10 ml Sodium Chloride ([place] Nasal [place] 0.65%) 0 ml EA NARE QIDPRN PRN PRN Reason: Nasal Congestion Temazepam (Restoril) 15 mg PO HSPRN PRN PRN Reason: Insomnia Last Admin: 04/13/18 22:35 Dose: 15 mg Thiamine HCl (Thiamine) 100 mg PO 1200 [facility] Last Admin: 04/13/18 11:46 Dose: 100 mg Tramadol HCl (Ultram) 50 mg PO Q6H PRN PRN Reason: Pain Last Admin: 04/13/18 22:35 Dose: 50 mg
[2018-04-14] MEDS: Multivit, Therapeutic 1 TAB PO SCH (13:18)
[2018-04-14] MEDS: Folic Acid 1 MG TAB PO SCH (13:18)
[2018-04-14] MEDS: cefTRIAXone\\ROCEPHIN 2 GM in Sodium Chloride 0.9% 100 ML IVPB SCH (19:22)
[2018-04-14] MEDS: QUEtiapine Fumarate ER 50 MG TAB PO SCH (21:01)
[2018-04-15 05:29] LABS: ALT (SGPT) 19 U/L (8-55); AST (SGOT) 81 U/L (5-34); Alkaline Phosphatase 157 U/L (40-150); Anion Gap 8 mmol/L (10-20); BUN (Urea Nitrogen) Less than 4 mg/dL (9.8-20.1); Bilirubin, Total 2.3 mg/dL (0.2-1.2); Calc. Creatinine Clearance 137 mL/min (70-130); Calcium 8.7 mg/dL (7.8-10.44); Carbon Dioxide 24 mmol/L (22-29); Chloride 104 mmol/L (98-107); Estimated GFR-MDRD Greater than 90; Globulin 3.8 g/dL (2.4-3.5); Glucose 120 mg/dL (70-105); Magnesium 1.5 mg/dL (1.6-2.6); Potassium 3.8 mmol/L (3.5-5.1); Protein, Total 6.8 g/dL (6.0-8.3); Sodium 132 mmol/L (136-145)
[2018-04-15] MEDS: metroNIDAZOLE 500 MG in Premix Bag 1 BAG IVPB SCH (05:54)
[2018-04-15 07:07] LABS: Hemoglobin 10.2 g/dL (12.0-16.0); Mean Corpuscular Hemoglobin 31.6 pg (27.0-31.0); Mean Corpuscular Volume 98.6 fL (78.0-98.0); Mean Platelet Volume 8.5 fL (7.4-10.4); Platelet Count 73 thou/uL (130-400); RBC Distribution Width 17.9 % (11.5-14.5); Red Blood Cell (RBC) Count 3.24 mill/uL (4.20-5.40); White Blood Cell (WBC) Count 4.9 thou/uL (4.8-10.8)
[2018-04-15 07:09] LABS: Band 1 % (5-11); Eosinophils 6 % (0-10); Hypochromia SLIGHT = 6-15 cells (100X) (0-5/hpf); Lymphocytes 31 % (21-51); MDiff Complete? YES; Monocytes 8 % (0-10); Neutrophil 54 % (42-75); PLT Morphology Comment Appears Decreased; Target Cells SLIGHT = 2-5 cells (100X) (0-1/hpf)
[2018-04-15] MEDS: Multivitamin W/ Minerals 1 TAB PO SCH (07:56)
[2018-04-15] MEDS: Potassium Chloride 20 MEQ TAB PO SCH (07:56)
[2018-04-15] MEDS: Amoxicillin/Potassium Clav 875 MG TAB PO SCH ×2 (07:56→20:33)
[2018-04-15] MEDS: Magnesium Oxide 400 MG TAB PO SCH ×2 (07:57→20:34)
[2018-04-15] MEDS: Lorazepam 1 MG TAB PO SCH ×2 (07:57→15:43)
[2018-04-15] MEDS: Propranolol 10 MG TAB PO SCH ×2 (07:57→20:46)
[2018-04-15] MEDS: FLUoxetine HCl 20 MG CAP PO SCH (07:57)
[2018-04-15] MEDS ORDERED: Magnesium Sulfate 4 GM in Sodium Chloride 0.9% 250 ML 250 ML IVPB SCH (08:00)
--- NOTE | 2018-04-15 09:11 | PDOC.PN ---
- Subjective Encounter Start Date: 04/15/18 Encounter Start Time: 08:10 Patient seen and examined. No new complaints. No overnight events pt is doing relative very well, no anxiety - Objective MAR Reviewed: Yes Vital Signs & Weight: Vital Signs (12 hours) Temp Pulse Resp BP BP Pulse Ox 04/15/18 04:11 98.4 F 67 18 121/80 121/80 97 04/15/18 00:04 98.2 F 77 18 122/80 122/80 97 I&O: 04/14/18 04/15/18 04/16/18 06:59 06:59 06:59 Intake Total 440 1510 Output Total 1100 Balance 440 410 Result Diagrams: 04/15/18 04:49 04/15/18 04:49 Phys Exam - Physical Examination Constitutional: NAD HEENT: PERRLA, moist MMs, sclera anicteric Neck: no JVD, supple Respiratory: no wheezing, no rales, no rhonchi Cardiovascular: RRR, no significant murmur, no rub Gastrointestinal: soft, non-tender, no distention, positive bowel sounds Musculoskeletal: no edema, pulses present Neurological: non-focal, normal sensation, moves all 4 limbs Psychiatric: normal affect, A&O x 3 Skin: no rash, normal turgor Dx/Plan (1) Alcohol intoxication Status: Resolved (2) Alcohol withdrawal syndrome Code(s): F10.239 - ALCOHOL DEPENDENCE WITH WITHDRAWAL, UNSPECIFIED Status: Acute Comment: improving (3) Ascites Code(s): R18.8 - OTHER ASCITES Status: Acute Comment: No SBP (4) Aspiration pneumonia Code(s): J69.0 - PNEUMONITIS DUE TO INHALATION OF FOOD AND VOMIT Status: Acute (5) Hypokalemia Code(s): E87.6 - HYPOKALEMIA Status: Resolved (6) Hypomagnesemia Code(s): E83.42 - HYPOMAGNESEMIA Status: Acute (7) Hyponatremia Code(s): E87.1 - HYPO-OSMOLALITY AND HYPONATREMIA Status: Acute (8) Hypophosphatemia Code(s): E83.39 - OTHER DISORDERS OF PHOSPHORUS METABOLISM Status: Resolved (9) Steatohepatitis, alcoholic Code(s): K70.10 - ALCOHOLIC HEPATITIS WITHOUT ASCITES Status: Acute (10) Anxiety and depression Code(s): F41.9 - ANXIETY DISORDER, UNSPECIFIED; F32.9 - MAJOR DEPRESSIVE DISORDER, SINGLE EPISODE, UNSPECIFIED Status: Chronic (11) Chronic alcoholism Code(s): F10.20 - ALCOHOL DEPENDENCE, UNCOMPLICATED Status: Chronic (12) Coagulopathy Status: Chronic (13) Fibromyalgia Status: Chronic (14) Hyperbilirubinemia Code(s): E80.6 - OTHER DISORDERS OF BILIRUBIN METABOLISM Status: Chronic (15) Hypoalbuminemia Code(s): E88.09 - OTH DISORDERS OF PLASMA-PROTEIN METABOLISM, NEC Status: Chronic (16) Pancytopenia Code(s): D61.818 - OTHER PANCYTOPENIA Status: Chronic (17) Thrombocytopenia Code(s): D69.6 - THROMBOCYTOPENIA, UNSPECIFIED Status: Chronic (18) Lactic acidosis Code(s): E87.2 - ACIDOSIS Status: Resolved - Plan cont current plan of care, continue antibiotics, PT/OT * dc rocephin and flagyl * start augmentin for 5 days for aspiration pneumonia * replace magnesium, replace potassium phosphate * ambulate today * expecting discharge tomorrow * DC metoprolol * start inderal 10 mg po bid * medication reviewed as below * symptomatic treatment. Review of Systems - Review of Systems Eyes: negative: Pain, Vision Change, Conjunctivae Inflammation, Eyelid Inflammation, Redness, Other ENT: negative: Ear Pain, Ear Discharge, Nose Pain, Nose Discharge, Nose Congestion, Mouth Pain, Mouth Swelling, Throat Pain, Throat Swelling, Other Respiratory: negative: Cough, Dry, Shortness of Breath, Hemoptysis, SOB with Excertion, Pleuritic Pain, Sputum, Wheezing Cardiovascular: negative: chest pain, palpitations, orthopnea, paroxysmal nocturnal dyspnea, edema, light headedness, other Gastrointestinal: negative: Nausea, Vomiting, Abdominal Pain, Diarrhea, Constipation, Melena, Hematochezia, Other Genitourinary: negative: Dysuria, Frequency, Incontinence, Hematuria, Retention , Other Musculoskeletal: negative: Neck Pain, Shoulder Pain, Arm Pain, Back Pain, Hand Pain, Leg Pain, Foot Pain, Other Skin: negative: Rash, Lesions, Giovanni, Bruising, Other - Medications/Allergies Allergies/Adverse Reactions: Allergies Allergy/AdvReac Type Severity Reaction Status Date / Time No Known Allergies Allergy Verified 04/11/18 01:00 Medications: Current Medications Al Hydroxide/Mg Hydroxide (Maalox) 15 ml PO Q4H PRN PRN Reason: Heartburn or Indigestion Amoxicillin/Clavulanate Potassium (Augmentin) 875 mg PO Q12HR [facility] Last Admin: 04/15/18 07:56 Dose: 875 mg Artificial Tears (Tears Renewed 15ml Bottle) 0 drop EA EYE PRN PRN PRN Reason: Dry Eyes Bisacodyl (Dulcolax) 10 mg [place] DAILYPRN PRN PRN Reason: Constipation Clonidine (Catapres) 0.1 mg PO Q4H PRN PRN Reason: Systolic BP > 180 Diazepam (Valium) 5 mg PO Q4H PRN PRN Reason: FOR ASE 10 OR GREATER Last Admin: 04/12/18 23:41 Dose: 5 mg Fluoxetine HCl (Prozac) 20 mg PO DAILY [facility] Last Admin: 04/15/18 07:57 Dose: 20 mg Folic Acid (Folvite) 1 mg PO 1200 [facility] Last Admin: 04/14/18 13:18 Dose: 1 mg Guaifenesin (Robitussin Sf) 200 mg PO Q4H PRN PRN Reason: Cough Magnesium Sulfate 4 gm/ Sodium (Chloride) 258 mls @ 86 mls/hr IVPB 0800 [facility] Stop: 04/15/18 10:59 Last Admin: 04/15/18 07:56 Dose: 258 mls Iron/Minerals/Multivitamins (Theragran M) 1 tab PO DAILY [facility] Last Admin: 04/15/18 07:56 Dose: 1 tab Labetalol HCl (Normodyne) 20 mg SLOW IVP Q4H PRN PRN Reason: Systolic BP > 180 Lactulose (Lactulose) 10 gm PO DAILYPRN PRN PRN Reason: Constipation Loperamide HCl (Imodium) 2 mg PO PRN PRN PRN Reason: Diarrhea/Loose Stools Loratadine (Claritin) 10 mg PO DAILYPRN PRN PRN Reason: Sinus Symptoms Lorazepam (Ativan) 1 mg PO TID [facility] Last Admin: 04/15/18 07:57 Dose: 1 mg Lorazepam (Ativan) 2 mg SLOW IVP Q4H PRN PRN Reason: ANXIETY/AGITATION Magnesium Hydroxide (Milk Of Magnesium) 30 ml PO DAILYPRN PRN PRN Reason: Constipation Magnesium Oxide (Magnesium Oxide) 400 mg PO BID [facility] Last Admin: 04/15/18 07:57 Dose: 400 mg Mineral Oil/White Petrolatum (Eucerin Cream) 0 gm TOP BIDPRN PRN PRN Reason: Dry Skin Multivitamins (Theragran) 1 tab PO 1200 [facility] Last Admin: 04/14/18 13:18 Dose: 1 tab Ondansetron HCl (Zofran) 4 mg IVP Q6H PRN PRN Reason: Nausea/Vomiting Last Admin: 04/11/18 21:37 Dose: 4 mg Ondansetron HCl (Zofran Odt) 4 mg PO Q6H PRN PRN Reason: Nausea/Vomiting Pantoprazole Sodium (Protonix) 40 mg PO DAILY [facility] Last Admin: 04/15/18 07:57 Dose: 40 mg Phenol (Chloraseptic [place] 180 Ml Bot) 0 ml PO PRN PRN PRN Reason: Sore Throat Potassium Chloride (K-Dur) 20 meq PO QAM-WM [facility] Last Admin: 04/15/18 07:56 Dose: 20 meq Propranolol HCl (Inderal) 10 mg PO BID [facility] Last Admin: 04/15/18 07:57 Dose: 10 mg Quetiapine Fumarate (Seroquel Xr) 150 mg PO HS [facility] Last Admin: 04/14/18 21:01 Dose: 150 mg Sodium Chloride (Flush - Normal Saline) 10 ml IVF Q12HR [facility] Last Admin: 04/15/18 07:58 Dose: 10 ml Sodium Chloride (Flush - Normal Saline) 10 ml IVF PRN PRN PRN Reason: Saline Flush Last Admin: 04/13/18 04:37 Dose: 10 ml Sodium Chloride ([place] Nasal [place] 0.65%) 0 ml EA NARE QIDPRN PRN PRN Reason: Nasal Congestion Temazepam (Restoril) 15 mg PO HSPRN PRN PRN Reason: Insomnia Last Admin: 04/13/18 22:35 Dose: 15 mg Thiamine HCl (Thiamine) 100 mg PO 1200 [facility] Last Admin: 04/14/18 13:18 Dose: 100 mg Tramadol HCl (Ultram) 50 mg PO Q6H PRN PRN Reason: Pain Last Admin: 04/13/18 22:35 Dose: 50 mg
[2018-04-15] MEDS ORDERED: Potassium Phosphate 15 MMOL in Sodium Chloride 0.9% 250 ML 250 ML IVPB SCH (10:00)
[2018-04-15] MEDS: Folic Acid 1 MG TAB PO SCH (12:01)
[2018-04-15] MEDS: Multivit, Therapeutic 1 TAB PO SCH (12:01)
[2018-04-15] MEDS ORDERED: Lorazepam 0.5 MG TAB PO PRN (17:56)
[2018-04-15] MEDS: Milk Of Magnesia 30 ML UDCUP PO PRN (18:27)
[2018-04-15] MEDS: QUEtiapine Fumarate ER 50 MG TAB PO SCH (20:33)
[2018-04-15] MEDS: traMADol HCl 50 MG TAB PO PRN (20:33)
[2018-04-15] MEDS ORDERED: Lorazepam 0.5 MG TAB PO SCH (21:00)
[2018-04-15] MEDS: Temazepam 15 MG CAP PO PRN (22:31)
[2018-04-16 05:37] LABS: ALT (SGPT) 20 U/L (8-55); AST (SGOT) 78 U/L (5-34); Albumin 2.9 g/dL (3.5-5.0); Alkaline Phosphatase 189 U/L (40-150); Anion Gap 11 mmol/L (10-20); BUN (Urea Nitrogen) 4 mg/dL (9.8-20.1); Calc. Creatinine Clearance 142 mL/min (70-130); Calcium 8.4 mg/dL (7.8-10.44); Carbon Dioxide 22 mmol/L (22-29); Chloride 106 mmol/L (98-107); Estimated GFR-MDRD Greater than 90; Globulin 3.5 g/dL (2.4-3.5); Glucose 117 mg/dL (70-105); Potassium 3.8 mmol/L (3.5-5.1); Protein, Total 6.4 g/dL (6.0-8.3); Sodium 135 mmol/L (136-145)
[2018-04-16 06:33] LABS: Band 10 % (5-11); Hemoglobin 9.7 g/dL (12.0-16.0); Lymphocytes 31 % (21-51); MDiff Complete? YES; Mean Corpuscular Hemoglobin 32.7 pg (27.0-31.0); Mean Corpuscular Volume 99.2 fL (78.0-98.0); Mean Platelet Volume 8.4 fL (7.4-10.4); Monocytes 20 % (0-10); Neutrophil 39 % (42-75); PLT Morphology Comment Appears Decreased; Platelet Count 81 thou/uL (130-400); Red Blood Cell (RBC) Count 2.95 mill/uL (4.20-5.40); Target Cells SLIGHT = 2-5 cells (100X) (0-1/hpf); White Blood Cell (WBC) Count 4.6 thou/uL (4.8-10.8)
[2018-04-16] MEDS: Potassium Chloride 20 MEQ TAB PO SCH (08:13)
[2018-04-16] MEDS: Magnesium Oxide 400 MG TAB PO SCH (08:14)
[2018-04-16] MEDS: FLUoxetine HCl 20 MG CAP PO SCH (08:14)
[2018-04-16] MEDS: Amoxicillin/Potassium Clav 875 MG TAB PO SCH (08:14)
[2018-04-16] MEDS: Multivitamin W/ Minerals 1 TAB PO SCH (08:14)
[2018-04-16] MEDS: Propranolol 10 MG TAB PO SCH (08:17)
--- NOTE | 2018-04-16 10:13 | PDOC.PN ---
- Subjective Encounter Start Date: 04/16/18 Encounter Start Time: 08:20 Patient seen and examined. No new complaints. No overnight events - Objective MAR Reviewed: Yes Vital Signs & Weight: Vital Signs (12 hours) Temp Pulse Pulse Resp BP BP BP 04/16/18 08:31 86 107/77 04/16/18 08:00 98.6 F 73 16 04/16/18 07:54 98.6 F 73 16 119/83 04/16/18 04:13 98.4 F 79 16 113/74 113/74 04/16/18 00:11 98.6 F 85 16 103/68 103/68 Pulse Ox Pulse Ox 04/16/18 08:31 100 04/16/18 08:00 99 04/16/18 07:54 99 04/16/18 04:13 96 04/16/18 00:11 96 I&O: 04/15/18 04/16/18 04/17/18 06:59 06:59 06:59 Intake Total 1510 1305 Output Total 1100 Balance 410 1305 Result Diagrams: 04/16/18 04:32 04/16/18 04:32 Phys Exam - Physical Examination Constitutional: NAD HEENT: PERRLA, moist MMs, sclera anicteric Neck: no JVD, supple Respiratory: no wheezing, no rales, no rhonchi Cardiovascular: RRR, no significant murmur, no rub Gastrointestinal: soft, non-tender, no distention, positive bowel sounds Musculoskeletal: no edema, pulses present Neurological: non-focal, normal sensation, moves all 4 limbs Psychiatric: normal affect, A&O x 3 Skin: no rash, normal turgor Dx/Plan (1) Alcohol intoxication Status: Resolved (2) Alcohol withdrawal syndrome Code(s): F10.239 - ALCOHOL DEPENDENCE WITH WITHDRAWAL, UNSPECIFIED Status: Acute Comment: improving (3) Ascites Code(s): R18.8 - OTHER ASCITES Status: Acute Comment: No SBP (4) Aspiration pneumonia Code(s): J69.0 - PNEUMONITIS DUE TO INHALATION OF FOOD AND VOMIT Status: Acute (5) Hypokalemia Code(s): E87.6 - HYPOKALEMIA Status: Resolved (6) Hypomagnesemia Code(s): E83.42 - HYPOMAGNESEMIA Status: Acute (7) Hyponatremia Code(s): E87.1 - HYPO-OSMOLALITY AND HYPONATREMIA Status: Acute (8) Hypophosphatemia Code(s): E83.39 - OTHER DISORDERS OF PHOSPHORUS METABOLISM Status: Resolved (9) Steatohepatitis, alcoholic Code(s): K70.10 - ALCOHOLIC HEPATITIS WITHOUT ASCITES Status: Acute (10) Anxiety and depression Code(s): F41.9 - ANXIETY DISORDER, UNSPECIFIED; F32.9 - MAJOR DEPRESSIVE DISORDER, SINGLE EPISODE, UNSPECIFIED Status: Chronic (11) Chronic alcoholism Code(s): F10.20 - ALCOHOL DEPENDENCE, UNCOMPLICATED Status: Chronic (12) Coagulopathy Status: Chronic (13) Fibromyalgia Status: Chronic (14) Hyperbilirubinemia Code(s): E80.6 - OTHER DISORDERS OF BILIRUBIN METABOLISM Status: Chronic (15) Hypoalbuminemia Code(s): E88.09 - OTH DISORDERS OF PLASMA-PROTEIN METABOLISM, NEC Status: Chronic (16) Pancytopenia Code(s): D61.818 - OTHER PANCYTOPENIA Status: Chronic (17) Thrombocytopenia Code(s): D69.6 - THROMBOCYTOPENIA, UNSPECIFIED Status: Chronic (18) Lactic acidosis Code(s): E87.2 - ACIDOSIS Status: Resolved - Plan cont current plan of care, plan discussed w/ family * medication reviewed as below * symptomatic treatment * stable for discharge * she needs social help before discharge, piano case maker notified. Review of Systems - Review of Systems Eyes: negative: Pain, Vision Change, Conjunctivae Inflammation, Eyelid Inflammation, Redness, Other ENT: negative: Ear Pain, Ear Discharge, Nose Pain, Nose Discharge, Nose Congestion, Mouth Pain, Mouth Swelling, Throat Pain, Throat Swelling, Other Respiratory: negative: Cough, Dry, Shortness of Breath, Hemoptysis, SOB with Excertion, Pleuritic Pain, Sputum, Wheezing Cardiovascular: negative: chest pain, palpitations, orthopnea, paroxysmal nocturnal dyspnea, edema, light headedness, other Gastrointestinal: negative: Nausea, Vomiting, Abdominal Pain, Diarrhea, Constipation, Melena, Hematochezia, Other Genitourinary: negative: Dysuria, Frequency, Incontinence, Hematuria, Retention , Other Musculoskeletal: negative: Neck Pain, Shoulder Pain, Arm Pain, Back Pain, Hand Pain, Leg Pain, Foot Pain, Other - Medications/Allergies Allergies/Adverse Reactions: Allergies Allergy/AdvReac Type Severity Reaction Status Date / Time No Known Allergies Allergy Verified 04/11/18 01:00 Medications: Current Medications Al Hydroxide/Mg Hydroxide (Maalox) 15 ml PO Q4H PRN PRN Reason: Heartburn or Indigestion Amoxicillin/Clavulanate Potassium (Augmentin) 875 mg PO Q12HR [facility] Last Admin: 04/16/18 08:14 Dose: 875 mg Artificial Tears (Tears Renewed 15ml Bottle) 0 drop EA EYE PRN PRN PRN Reason: Dry Eyes Bisacodyl (Dulcolax) 10 mg UT DAILYPRN PRN PRN Reason: Constipation Clonidine (Catapres) 0.1 mg PO Q4H PRN PRN Reason: Systolic BP > 180 Fluoxetine HCl (Prozac) 20 mg PO DAILY [facility] Last Admin: 04/16/18 08:14 Dose: 20 mg Folic Acid (Folvite) 1 mg PO 1200 [facility] Last Admin: 04/15/18 12:01 Dose: 1 mg Guaifenesin (Robitussin Sf) 200 mg PO Q4H PRN PRN Reason: Cough Iron/Minerals/Multivitamins (Theragran M) 1 tab PO DAILY [facility] Last Admin: 04/16/18 08:14 Dose: 1 tab Labetalol HCl (Normodyne) 20 mg SLOW IVP Q4H PRN PRN Reason: Systolic BP > 180 Lactulose (Lactulose) 10 gm PO DAILYPRN PRN PRN Reason: Constipation Loperamide HCl (Imodium) 2 mg PO PRN PRN PRN Reason: Diarrhea/Loose Stools Loratadine (Claritin) 10 mg PO DAILYPRN PRN PRN Reason: Sinus Symptoms Magnesium Hydroxide (Milk Of Magnesium) 30 ml PO DAILYPRN PRN PRN Reason: Constipation Last Admin: 04/15/18 18:27 Dose: 30 ml Magnesium Oxide (Magnesium Oxide) 400 mg PO BID [facility] Last Admin: 04/16/18 08:14 Dose: 400 mg Mineral Oil/White Petrolatum (Eucerin Cream) 0 gm TOP BIDPRN PRN PRN Reason: Dry Skin Multivitamins (Theragran) 1 tab PO 1200 [facility] Last Admin: 04/15/18 12:01 Dose: 1 tab Ondansetron HCl (Zofran) 4 mg IVP Q6H PRN PRN Reason: Nausea/Vomiting Last Admin: 04/11/18 21:37 Dose: 4 mg Ondansetron HCl (Zofran Odt) 4 mg PO Q6H PRN PRN Reason: Nausea/Vomiting Pantoprazole Sodium (Protonix) 40 mg PO DAILY [facility] Last Admin: 04/16/18 08:14 Dose: 40 mg Phenol (Chloraseptic [place] 180 Ml Bot) 0 ml PO PRN PRN PRN Reason: Sore Throat Potassium Chloride (K-Dur) 20 meq PO QAM-WM [facility] Last Admin: 04/16/18 08:13 Dose: 20 meq Propranolol HCl (Inderal) 10 mg PO BID [facility] Last Admin: 04/16/18 08:17 Dose: 10 mg Quetiapine Fumarate (Seroquel Xr) 150 mg PO HS [facility] Last Admin: 04/15/18 20:33 Dose: 150 mg Sodium Chloride (Flush - Normal Saline) 10 ml IVF Q12HR [facility] Last Admin: 04/16/18 08:14 Dose: 10 ml Sodium Chloride (Flush - Normal Saline) 10 ml IVF PRN PRN PRN Reason: Saline Flush Last Admin: 04/13/18 04:37 Dose: 10 ml Sodium Chloride ([place] Nasal [place] 0.65%) 0 ml EA NARE QIDPRN PRN PRN Reason: Nasal Congestion Temazepam (Restoril) 15 mg PO HSPRN PRN PRN Reason: Insomnia Last Admin: 04/15/18 22:31 Dose: 15 mg Thiamine HCl (Thiamine) 100 mg PO 1200 [facility] Last Admin: 04/15/18 12:01 Dose: 100 mg Tramadol HCl (Ultram) 50 mg PO Q6H PRN PRN Reason: Pain Last Admin: 04/15/18 20:33 Dose: 50 mg
[2018-04-16] MEDS: Milk Of Magnesia 30 ML UDCUP PO PRN (10:18)
[2018-04-16] MEDS: traMADol HCl 50 MG TAB PO PRN (10:20)
[2018-04-16] MEDS ORDERED: Fleet Enema 133 ML BOT PR SCH (11:45)
[2018-04-16] MEDS: Multivit, Therapeutic 1 TAB PO SCH (12:15)
[2018-04-16] MEDS: Folic Acid 1 MG TAB PO SCH (12:15)
--- NOTE | 2018-04-16 12:20 | DIS ---
DATE OF ADMISSION: 04/10/2018 DATE OF DISCHARGE: 04/16/2018 PRIMARY CARE PHYSICIAN: [facility] call admission. DISCHARGE DISPOSITION: Home with family support. PRIMARY DISCHARGE DIAGNOSES: 1. Lactic acidosis, resolved. 2. Hypophosphatemia, corrected. 3. Hypokalemia, corrected. 4. Acute alcohol intoxication on admission, resolved. 5. Acute alcohol withdrawal syndrome, corrected. 6. Ascites without any spontaneous bacterial peritonitis. 7. Aspiration pneumonia. 8. Hypomagnesemia, corrected. 9. Hyponatremia, corrected. 10. Acute steatohepatitis. SECONDARY DISCHARGE DIAGNOSES: 1. Anxiety and depression. 2. Chronic alcoholism. 3. Coagulopathy. 4. Fibromyalgia. 5. Hyperbilirubinemia. 6. Hypoalbuminemia. 7. Pancytopenia. PRIMARY PROCEDURE AND OPERATION: None. RADIOLOGICAL INVESTIGATION: Abdomen and pelvis CT scan showed steatohepatitis and a diagnostic parac entesis was done. CT brain reported as no acute intracranial process, mild right frontoparietal cont usion noted. SIGNIFICANT LABORATORY DATA: WBC 4.6, hemoglobin 9.7, platelet 81. INR 1.5. Sodium 135, potassium 3.8, BUN 4, creatinine 0.53, calcium 8.4, bilirubin 2.0, AST 78, ALT 20, alkaline phosphatase 189, al bumin 2.9. Urinalysis normal. Ascitic fluid negative for any SBP. Alcohol level on admission, 341. Hepatitis profile negative. Blood culture negative. Ascitic fluid culture negative. DISCHARGE MEDICATIONS: Augmentin 875 mg p.o. b.i.d. for 5 days, Prozac 20 mg p.o. daily, folic acid 1 mg p.o. daily, lactulose 20 grams p.o. daily, magnesium oxide 400 mg p.o. daily, multivitamin 1 tab let p.o. daily, Protonix 40 mg p.o. daily, Inderal 10 mg p.o. b.i.d., thiamine 100 mg p.o. daily. CONTRAINDICATIONS: None. CODE STATUS: FULL CODE. INPATIENT CONSULTANTS: Dr. Stewart was following for steatohepatitis. TEST RESULTS PENDING ON DISCHARGE: None. ALLERGIES: No known drug allergy. DISCHARGE PLAN: Post hospital, the patient will follow up with primary care physician, alcohol rehab ilitation program. HOSPITAL COURSE: A 53-year-old female who was admitted by Dr. Hooper on 04/11/2018. The patient w as brought to ER for acute alcohol intoxication and she had abnormal liver function tests. In the em ergency room, CT of the abdomen and pelvis was done which showed right basilar airspace opacity sotero rning for pneumonia. We suspected aspiration pneumonia. She also had hepatomegaly and consistent th e steatohepatitis with mild ascites. We did paracentesis and SBP ruled out. For aspiration pneumoni a, she was receiving Rocephin and Flagyl. For steatohepatitis, we consulted GI team and they were fo llowing while in hospital. She developed acute alcohol withdrawal syndrome that required significant treatment with benzodiazepines. She had a code green, because one time she fell down on the floor a nd that is why we did CT brain and there was only mild contusion on the right side of the scalp, but no intracranial process. Patient had abnormal electrolytes that was corrected while in hospital. This patient does not have any funding. We tried to send her to residential/rehab, but unfortuna tely because of lack of funding, she is not able to get this type of benefit and in that scenario, I spoke with the patient's family member today about helping her out as a family. She is medically sta bilized, but she does have a little bit unsteadiness from alcoholism. She does have abnormal LFT, wh ich is already improving. She does not have any longer acute alcohol withdrawal syndrome. She is no t appear to be intoxicated. She is up to her baseline level. Main problem is she is continuing to d rink alcohol and that is making her day by day worse. I provided extensive counseling to the patient that she should not drink alcohol anymore. All new medication prescription was given to her. She i s medically stable from the hospital. I tried to consult manager of case management to assist whatever we can do f or her on discharge. The patient had some constipation and that is why we give her Fleet enema befor e discharge and she will continue lactulose therapy. The patient is seen and examined at bedside today. Plan of care discussed with the family member. S he is at high risk for recurrent admission given her noncompliance with alcohol drinking.
[2018-04-16 17:01] VITALS: BP 96/61; TEMP 98.7
--- NOTE | 2018-04-16 23:25 | PRG ---
DATE OF SERVICE: 04/16/2018 SUBJECTIVE: Ms. Osorio feels better. She is waiting a ride home tomorrow. OBJECTIVE: VITAL SIGNS: Temperature is 98, pulse 73, blood pressure 119/83. ABDOMEN: Soft, nontender, ascites has resolved. It seems she may got little bit of a fluid wave, bu t no dullness to percussion. LABORATORY STUDIES: White count is 4.6, hemoglobin 9.7, platelet count 81,000. Bilirubin is 2, AST and ALT 78 and 20, alkaline phosphatase is 189, protein 6.4, albumin 2.9. Blood and body fluid cultu res are negative. Ascitic fluid showed 63 white blood cells. ASSESSMENT: Alcoholic hepatitis, improving. Patient has been sober in the past. She actually has b een involved in AA in the past. Her daughter recently and she had become (01:03) drinking again. She is intent on going back to AA at discharge. She did undergo some withdrawals while here in the hospital which she has completed. RECOMMENDATIONS: When she goes home, will continue thiamine, multivitamin, and folate. Low salt t. PPI for ulcer prophylaxis. We will be happy to see her back in the office in followup in a coupl e of weeks.
== END 2018-04-16 19:03 | disposition home or self-care (01) | DRG 896 ==
LOC: ERS 19:27 → 2NO 23:34 → T4-B 04-14 11:29
PROVIDERS: ADMIT Hospitalist; ATTEND Hospitalist
PROC: 0W9G3ZX Drainage of Peritoneal Cavity, Percutaneous Approach, Diagnostic (ICD-10-PCS; principal; 2018-04-12)
DX: F10.229 Alcohol dependence with intoxication, unspecified (principal); J69.0 Pneumonitis due to inhalation of food and vomit; E87.2 Acidosis; E87.1 Hypo-osmolality and hyponatremia; D68.9 Coagulation defect, unspecified; D61.818 Other pancytopenia; K76.6 Portal hypertension; F10.239 Alcohol dependence with withdrawal, unspecified; K70.11 Alcoholic hepatitis with ascites; K70.31 Alcoholic cirrhosis of liver with ascites; Y90.8 Blood alcohol level of 240 mg/100 ml or more; D64.9 Anemia, unspecified; E83.39 Other disorders of phosphorus metabolism; E87.6 Hypokalemia; E83.42 Hypomagnesemia; F41.9 Anxiety disorder, unspecified; F32.9 Major depressive disorder, single episode, unspecified; M79.7 Fibromyalgia; E80.6 Other disorders of bilirubin metabolism; E88.09 Other disorders of plasma-protein metabolism, not elsewhere classified; I10 Essential (primary) hypertension; F19.11 Other psychoactive substance abuse, in remission; Z71.41 Alcohol abuse counseling and surveillance of alcoholic; Z91.19 Patient's noncompliance with other medical treatment and regimen; S00.03XA Contusion of scalp, initial encounter; W06.XXXA Fall from bed, initial encounter; Y92.230 Patient room in hospital as the place of occurrence of the external cause
CPT/HCPCS: 36415; 36416; 49083; 70450; 74177; 80048; 80053; 80074; 80307; 81003; 82140; 82550; 82553; 83605; 83690; 83735; 84100; 84484; 85025; 85060; 85610; 85730; 87040; 87070; 87205; 89051; 90471; 90732; 93005; 93010; 96361; 96365; 96368; 96375; A4216; C9113; G0009; G8978-GP-CL; G8979-GP-CI; G8987-GO-CK; G8988-GO-CI; J0696; J1956; J2001; J2060; J2270; J2405; J3411; J3475; J7042; J7050; Q0162

== ENCOUNTER 2018-06-07 16:33 | Inpatient (IN) | payer SELFPAY ==
[2018-06-07] MEDS ORDERED: Ondansetron ODT 4 MG TAB ONE (16:56)
[2018-06-07] MEDS ORDERED: Ketorolac Tromethamine 60 MG/2 ML VIAL ONE (16:56)
[2018-06-07] MEDS ORDERED: Morphine 4 MG/ML VIAL ONE (16:56)
[2018-06-07] MEDS ORDERED: Fluorescein Opthalmic Strip ONE (18:00)
[2018-06-07] MEDS ORDERED: Proparacaine 0.5% Opth 15 ML BOT ONE (18:00)
[2018-06-07 18:15] LABS: #Basophils 0.1 thou/uL (0.0-0.2); #Eosinphils 0.3 thou/uL (0.0-0.7); #Lymphocytes 2.4 thou/uL (1.20-3.40); #Monocytes 0.8 thou/uL (0.11-0.59); #Neutrophils 2.4 thou/uL (1.40-6.50); %Basophils 1.1 % (0.0-1.0); %Eosinophils 4.4 % (0.0-10.0); %Lymphocytes 39.7 % (21.0-51.0); %Monocytes 14.1 % (0.0-10.0); %Neutrophils 40.7 % (42.0-75.0); Hemoglobin 10.4 g/dL (12.0-16.0); Mean Corpuscular Hemoglobin 31.4 pg (27.0-31.0); Mean Corpuscular Volume 92.3 fL (78.0-98.0); Mean Platelet Volume 7.2 fL (7.4-10.4); Platelet Count 168 thou/uL (130-400); RBC Distribution Width 13.3 % (11.5-14.5); Red Blood Cell (RBC) Count 3.32 mill/uL (4.20-5.40)
[2018-06-07 18:38] LABS: ALT (SGPT) 25 U/L (8-55); AST (SGOT) 83 U/L (5-34); Albumin 3.3 g/dL (3.5-5.0); Alkaline Phosphatase 206 U/L (40-150); Anion Gap 13 mmol/L (10-20); BUN (Urea Nitrogen) Less than 4 mg/dL (9.8-20.1); Bilirubin, Total 1.3 mg/dL (0.2-1.2); Calc. Creatinine Clearance 0 mL/min (70-130); Calcium 9.1 mg/dL (7.8-10.44); Carbon Dioxide 20 mmol/L (22-29); Chloride 101 mmol/L (98-107); Estimated GFR-MDRD 88; Globulin 4.8 g/dL (2.4-3.5); Glucose 94 mg/dL (70-105); Potassium 3.8 mmol/L (3.5-5.1); Protein, Total 8.1 g/dL (6.0-8.3); Sodium 130 mmol/L (136-145)
[2018-06-07] MEDS ORDERED: METHYLPREDNISOLONE SOD SUCC IVPB SCH ×2 (19:15→20:45)
[2018-06-07] MEDS ORDERED: Acyclovir 400 mg Tablet PO SCH (19:15)
[2018-06-07] MEDS ORDERED: SODIUM CHLORIDE 0.9% IVPB SCH ×2 (19:15→20:45)
[2018-06-07] MEDS ORDERED: Hydrocortisone Sod Succ/PF 250 mg/2 ml Vial SLOW IVP STA (20:29)
[2018-06-07] MEDS ORDERED: methylPREDNISolone Sod Succ/PF 125 MG/2 ML VIAL IVP ONE (20:32)
[2018-06-07] MEDS ORDERED: Hydrocortisone Sod Succ/PF 250 MG in Sodium Chloride 0.9% 50 ML IVPB ONE (20:45)
--- NOTE | 2018-06-07 22:06 | CT ---
CT HEAD NONCONTRAST: 06/07/18 HISTORY: Headache. COMPARISON: 04/13/18. FINDINGS: There is no evidence of acute intracranial hemorrhage or infarct. Ventricles appear normal in size, s hape and position. There is no mass effect or shift of midline structures. IMPRESSION: No acute intracranial abnormalities are demonstrated. POS: [facility]
[2018-06-07] MEDS: Gabapentin 100 MG CAP PO SCH (22:37)
[2018-06-07 22:48] VITALS: BMI 27.4
[2018-06-07] MEDS: Propranolol 10 MG TAB PO SCH (23:09)
[2018-06-07] MEDS ORDERED: Zolpidem Tartrate 5 MG TAB PO PRN (23:59)
[2018-06-08] MEDS: Acetaminophen 325 MG TAB PO PRN (04:36)
[2018-06-08 05:22] LABS: #Lymphocytes 0.6 thou/uL (1.20-3.40); #Neutrophils 1.7 thou/uL (1.40-6.50); %Basophils 0.2 % (0.0-1.0); %Eosinophils 0.5 % (0.0-10.0); %Lymphocytes 26.2 % (21.0-51.0); %Monocytes 0.9 % (0.0-10.0); %Neutrophils 72.1 % (42.0-75.0); Hemoglobin 9.3 g/dL (12.0-16.0); Mean Corpuscular HGB CONC 34.4 g/dL (32.0-36.0); Mean Corpuscular Hemoglobin 31.6 pg (27.0-31.0); Mean Corpuscular Volume 91.8 fL (78.0-98.0); Mean Platelet Volume 7.8 fL (7.4-10.4); Platelet Count 143 thou/uL (130-400); RBC Distribution Width 13.1 % (11.5-14.5); Red Blood Cell (RBC) Count 2.93 mill/uL (4.20-5.40); White Blood Cell (WBC) Count 2.4 thou/uL (4.8-10.8)
[2018-06-08 05:35] LABS: Anion Gap 10 mmol/L (10-20); BUN (Urea Nitrogen) Less than 4 mg/dL (9.8-20.1); Calc. Creatinine Clearance 117 mL/min (70-130); Calcium 8.8 mg/dL (7.8-10.44); Carbon Dioxide 21 mmol/L (22-29); Chloride 108 mmol/L (98-107); Estimated GFR-MDRD Greater than 90; Glucose 171 mg/dL (70-105); Potassium 3.7 mmol/L (3.5-5.1); Sodium 135 mmol/L (136-145)
[2018-06-08] MEDS: Ondansetron HCl/PF 4 MG/2 ML Vial IVP PRN (07:53)
[2018-06-08] MEDS: Enoxaparin Sodium 40 MG/0.4 ML SYRINGE SC SCH (07:54)
[2018-06-08] MEDS: Gabapentin 100 MG CAP PO SCH ×3 (07:55→20:25)
[2018-06-08] MEDS ORDERED: methylPREDNISolone Sod Succ/PF 125 MG/2 ML VIAL IVP SCH (09:00)
[2018-06-08] MEDS: Propranolol 10 MG TAB PO SCH ×2 (09:33→20:25)
--- NOTE | 2018-06-08 09:51 | HP ---
PRIMARY CARE PHYSICIAN: Dr. Lund. CODE STATUS: FULL CODE. TIME OF EVALUATION: 08:05 p.m. CHIEF COMPLAINT: Severe left facial pain. HISTORY OF PRESENT ILLNESS: This is a 53-year-old female patient with past medical history of GERD, mitral valve prolapse, liver disease, came to the hospital after having severe pain in the left eye a nd vision loss. The pain is in the left side of the face, radiating to the left temporal area. The patient also has inability to move her jaw due to severe pain. She reported the symptoms have been p resent for the past month, but had been getting very severe in the past week. The patient reported t hat she also have cataracts, but however, she has had a significant change in vision in the past week . The symptoms are severe, no clear triggers, no alleviating factors. The patient receiving opiate medication for pain management, also it has been very difficult to control. My concern being the pat ient . We will start the patient on high dose steroids. We will consult Neurology in morning, we will follow recommendations. May need temporal artery biopsy. We will defer to Neurol ogy for any further workup. The patient will need to be seen by a clinical informatics specialist that can be arrange d in the morning. REVIEW OF SYSTEMS: Constitutional: No fever, chills or generalized weakness. Respiratory: No coug h, sputum production or shortness of breath. Cardiovascular: No chest pain, palpitations, or shortn ess of breath. Gastrointestinal: No nausea, no vomiting, diarrhea or abdominal pain. HUNTER TRAPPER: No dizz iness, no headache. The patient has left-sided facial neuropathic pain as described in HPI. Genitou rinary: No burning on urination. Extremities: No leg swelling. All other systems were reviewed an d negative except for the findings mentioned above. PAST MEDICAL HISTORY: Mentioned in the HPI. PAST SURGICAL HISTORY: Positive for ankle, endometrial ablation, breast augmentation , tubal li gation. SOCIAL HISTORY: The patient drinks every day, more than 5 drinks per day. No drugs. No smoking his tory. Former drug user, used to abuse benzodiazepines and prescription medications. FAMILY HISTORY: Reviewed. Mother and father with history of diabetes, also history of coronary baldev ry disease and CABG. ALLERGIES: No known drug allergies. REPORTED MEDICATIONS: Tylenol No. 3 oral once a day in the evening. PHYSICAL EXAMINATION: VITAL SIGNS: On presentation, blood pressure 121/81 with heart rate 82, respiratory rate was 19, tem perature was 98.5, pain 10/10, oxygen saturation 98. GENERAL APPEARANCE: The patient is in distress, uncomfortable due to severe pain. Pain is present e very 5-10 minutes and relief in a few seconds. HEENT: Eyes: Normal conjunctivae. Moist oral mucosa. Anicteric. NECK: No JVD. RESPIRATORY: Bilateral air entry. No rales, no wheezing. Symmetric expansion. CARDIOVASCULAR: Normal rate, regular rhythm. No murmurs, no gallop. No edema. ABDOMEN: Soft, normal bowel sounds. MUSCULOSKELETAL: Baseline range of motion and strength. No tenderness. SKIN: Warm, intact. No pallor, no rash, no redness. Peripheral pulses are present. Capillary refi ll seems to be intact. NEUROLOGIC: Baseline sensory. No evidence of any new focal weakness. Baseline speech. Cranial ner ves seem to be intact. PSYCHIATRIC: The patient is in good mood. No anxiety, oriented, optimal judgment. LABORATORY DATA: Labs were reviewed. The patient has white count 6.0, hemoglobin 10.4, MCV 92, plat elet count 168. Sodium 130, potassium 3.8, chloride 101, carbon dioxide is 20, anion gap 13, BUN les s than 4, creatinine 0.7, GFR 88, glucose 94, calcium 9.1, total bilirubin 1.3, AST 83, ALT 25, alkal ine phosphatase 206. C-reactive protein was 0.5. Sed rate was 64 . Albumin 3.3. ASSESSMENT AND PLAN: The patient will be placed in the hospital with the following medical problems. 1. Left-sided severe neuropathic pain in the face, the differential being the patient 53 the pain being associated with a significant change in vision in the left eye in the past week. We are c oncerned about giant cell arteritis, the patient is receiving high dose will give it for 3 day s. We will call Neuro, we will follow recommendations. Might need a clinical informatics specialist to help us, that can be arranged in the morning. We will treat pain. 2. History of alcohol use. Watch the patient for any symptoms of DTs. She does not seem to be into xicated at this point. 3. Normocytic anemia, hemoglobin 10.4. This is chronic, stable, can be followed as an outpatient. 4. Hyponatremia, sodium 130, this is . No need for any further intervention at this point, we will monitor and adjust accordingly. 5. Deep venous thrombosis prophylaxis. 6. History of hypertension, reconcile home medications. At this point, it is controlled. 7. History of liver cirrhosis, this seems to be compensated, we will monitor, we will adjust treatme nt as needed.
[2018-06-08] MEDS ORDERED: carBAMazepine 200 MG TAB PO SCH (12:30)
--- NOTE | 2018-06-08 13:49 | CON ---
DATE OF CONSULTATION: 06/08/2018 CHIEF COMPLAINT: Pain in the left side of the face. HISTORY OF PRESENT ILLNESS: The patient is a 53-year-old right-handed lady who has prior history of giant cell arteritis and she reports she has had chickenpox as a child a few times and she has been in her usual state of health until recently when she suddenly developed left-sided facial pain. She has some vision issues from the left eye and pain is mostly on the left side of the face, now it is also in the nose area and nose is itching. She has had these symptoms for the past few weeks and no weakness or numbness or other neurological symptoms such as vertigo. PAST MEDICAL HISTORY: Positive for giant cell arteritis, mitral valve prolapse , liver disease and recent methylprednisone use and gastroesophageal reflux disease. PAST SURGICAL HISTORY: Endometrial ablation, breast augmentation, tubal ligation. SOCIAL HISTORY: Drinks daily more than 5 drinks per day. Nonsmoker, no alcohol use. She does not smoke and she is a former drug abuse, used benzodiazepines. ALLERGIES: No known drug allergies. CURRENT MEDICATIONS: Tylenol #3. Medicines per list in the chart; currently, she is receiving Tylenol, and Tegretol has just been started. She is also on gabapentin and enoxaparin. She is on morphine sulfate and she is on methylprednisone IV this time. She is also on tramadol. LABORATORY RESULTS: White count 2.4, hemoglobin 9.3, hematocrit 26.9, platelet count 143. Chemistry: Sodium 135, potassium 3.7, bicarbonate 21, BUN less than 4, creatinine 0.66, glucose 171, AST 83, ALT 25, alkaline phosphatase 206. MRI result is pending. It was completed today and CT head was negative for any acute intracranial abnormalities. REVIEW OF SYSTEMS: PULMONARY: Normal. No shortness of breath or cough. CARDIAC: No palpitations, no chest pain. GASTROINTESTINAL: Positive for reflux. GENITOURINARY: Negative. NEUROLOGIC: Positive for facial pain. MUSCULOSKELETAL: Negative for any joint pains. ENDOCRINE: Negative. DERMATOLOGIC: Positive for a rash, which is evolving. PHYSICAL EXAMINATION: VITAL SIGNS: Temperature is 87.8, pulse is 85, blood pressure 126/76. CHEST: Clear. GENERAL APPEARANCE: She has a rash in the left trigeminal nerve V1-V2 distribution slowly evolving and she has vesicles as well as erythema and swelling of the area. CHEST: Clear vesicular breathing. CARDIOVASCULAR: S1, S2 heard, no murmurs. ABDOMEN: Soft, nontender. Carotids are clear. NEUROLOGICAL: High intellectual functions, normal orientation to time, place, person and appropriate conversation. Cranial nerves II-XII normal extraocular movements. Pupils are equal, reactive to light and accommodation. Normal sensation of face bilaterally. Normal visual callahan by confrontation method, no facial asymmetry, normal elevation of palate. Tongue midline, no atrophy. MOTOR: ceps, wrist extension/flexion, finger extension and flexion bilaterally and deep tendon reflexes 2+ throughout. SENSORY: Normal touch, pinprick, proprioception, vibration, and temperature bilaterally. CEREBELLAR: Normal [id number], heel to youngblood. Gait not tested. IMPRESSION: The patient is a 53-year-old lady who reports pain which started in the top of the head and kind of stayed on the left side of the face and it is more intense. Per nursing staff, she had mild rash yesterday and now it is much worse than yesterday after admission. Her examination shows a rash in the trigeminal nerve distribution. It seems to be mostly in the V2 distribution, but I am also concerned there could be possible involvement of the V1 distribution as well and there is vesicular quality to the rash. The patient is familiar with shingles. Her brother had it 13-14 years ago. She is concerned family is going to make fun of her and kept saying she does not have sex and we reassured the patient that this is a different type of herpes infection. The rest of the neurological exam is normal. Diagnosis is most consistent with Shingles involving partially V1, and V2 distribution of trigeminal nerve. RECOMMENDATIONS: 1. I will check on the MRI report. 2. For pain control I agree with adding Tegretol, we can increase gabapentin to 300 mg 3 times a day if needed. Continue morphine for now and consider acyclovir. 3. I will follow up the patient with you tomorrow. JOHNATHAN
[2018-06-08] MEDS: Acyclovir Sodium 570 MG in Sodium Chloride 0.9% 100 ML IVPB SCH ×2 (14:01→22:08)
--- NOTE | 2018-06-08 14:07 | PDOC.PN ---
- Subjective Encounter Start Date: 06/08/18 Encounter Start Time: 14:05 Subjective: reports burning pain from top of head to left side of face & jaw -: denies any vision changes or loss or double vision -: new rash has appeared on the left face under the eye - Objective MAR Reviewed: Yes Vital Signs & Weight: Vital Signs (12 hours) Temp Pulse Resp BP Pulse Ox 06/08/18 11:19 97.8 F 85 18 126/76 98 06/08/18 08:00 98.1 F 83 18 06/08/18 07:50 98.1 F 83 18 127/80 96 06/08/18 05:35 97.8 F 90 18 111/71 96 Weight Weight 165 lb 1.6 oz I&O: 06/07/18 06/08/18 06/09/18 06:59 06:59 06:59 Intake Total 2 Balance 2 Result Diagrams: 06/08/18 03:33 06/08/18 03:33 Radiology Reviewed by me: Yes (zoë CT- no acute lesions/masses) Phys Exam - Physical Examination Constitutional: NAD HEENT: PERRLA, moist MMs, sclera anicteric, oral pharynx no lesions red papular rash under left eye w some vesicular quality.no clear vescicles Neck: no nodes, no JVD, supple, full ROM Respiratory: no wheezing, no rales, no rhonchi, clear to auscultation bilateral Cardiovascular: RRR, no significant murmur, no rub Gastrointestinal: soft, non-tender, no distention, positive bowel sounds Musculoskeletal: no edema, pulses present Neurological: non-focal, normal sensation, moves all 4 limbs tender to touch in dermatomal distribution on left face,worse on cheek Psychiatric: normal affect, A&O x 3 Skin: no rash Dx/Plan (1) HZV (herpes zoster virus) post herpetic trigeminal neuralgia Code(s): B02.22 - POSTHERPETIC TRIGEMINAL NEURALGIA Status: Acute (2) Hyponatremia Code(s): E87.1 - HYPO-OSMOLALITY AND HYPONATREMIA Status: Chronic (3) Steatohepatitis, alcoholic Code(s): K70.10 - ALCOHOLIC HEPATITIS WITHOUT ASCITES Status: Acute (4) Anxiety and depression Code(s): F41.9 - ANXIETY DISORDER, UNSPECIFIED; F32.9 - MAJOR DEPRESSIVE DISORDER, SINGLE EPISODE, UNSPECIFIED Status: Chronic (5) Chronic alcoholism Code(s): F10.20 - ALCOHOL DEPENDENCE, UNCOMPLICATED Status: Chronic (6) Fibromyalgia Status: Chronic (7) Chronic anemia Code(s): D64.9 - ANEMIA, UNSPECIFIED Status: Acute - Plan add carbamazepine for neuralgia. add IV acyclovir for new zoster eruption -: doubtful that this is Temporal arteritis. cont steroids for now. -: Await MRI results. await final Neurology recs -: HD stable. -: home meds as below.reviewd. am labs * . Review of Systems - Review of Systems Constitutional: negative: fever, chills, sweats, weakness, malaise, other ENT: negative: Ear Pain, Ear Discharge, Nose Pain, Nose Discharge, Nose Congestion, Mouth Pain, Mouth Swelling, Throat Pain, Throat Swelling, Other Respiratory: negative: Cough, Dry, Shortness of Breath, Hemoptysis, SOB with Excertion, Pleuritic Pain, Sputum, Wheezing Cardiovascular: negative: chest pain, palpitations, orthopnea, paroxysmal nocturnal dyspnea, edema, light headedness, other Gastrointestinal: negative: Nausea, Vomiting, Abdominal Pain, Diarrhea, Constipation, Melena, Hematochezia, Other Genitourinary: negative: Dysuria, Frequency, Incontinence, Hematuria, Retention , Other Musculoskeletal: negative: Neck Pain, Shoulder Pain, Arm Pain, Back Pain, Hand Pain, Leg Pain, Foot Pain, Other Skin: Rash Neurological: negative: Weakness, Numbness, Incoordination, Change in Speech, Confusion, Seizures, Other - Medications/Allergies Allergies/Adverse Reactions: Allergies Allergy/AdvReac Type Severity Reaction Status Date / Time No Known Allergies Allergy Verified 04/11/18 01:00 Medications: Current Medications Acetaminophen (Tylenol) 650 mg PO Q4H PRN PRN Reason: Headache/Fever or Pain Last Admin: 06/08/18 04:36 Dose: 650 mg Carbamazepine (Tegretol) 200 mg PO BID-[facility] Carbamazepine (Tegretol) 200 mg PO NOW [facility] Stop: 06/08/18 14:30 Last Admin: 06/08/18 12:56 Dose: 200 mg Enoxaparin Sodium (Lovenox) 40 mg SC 0900 [facility] Last Admin: 06/08/18 07:54 Dose: 40 mg Gabapentin (Neurontin) 100 mg PO TID [facility] Last Admin: 06/08/18 07:55 Dose: 100 mg Methylprednisolone Sodium Succinate 500 mg/ Sodium Chloride 108 mls @ 216 mls/ hr IVPB QAM [facility] Stop: 06/10/18 09:01 Last Admin: 06/08/18 10:47 Dose: 108 mls Acyclovir Sodium 570 mg/ (Sodium Chloride) 111.4 mls @ 111.4 mls/hr IVPB Q8HR [facility] Lactulose (Lactulose) 20 gm PO Q12H PRN PRN Reason: CONSTIPATION Last Admin: 06/08/18 11:49 Dose: 20 gm Morphine Sulfate (Morphine) 2 mg SLOW IVP Q4H PRN PRN Reason: Severe Pain (7-10) Last Admin: 06/08/18 12:46 Dose: 2 mg Ondansetron HCl (Zofran) 4 mg IVP Q6H PRN PRN Reason: Nausea/Vomiting Last Admin: 06/08/18 07:53 Dose: 4 mg Pantoprazole Sodium (Protonix) 40 mg PO DAILY [facility] Last Admin: 06/08/18 07:55 Dose: 40 mg Propranolol HCl (Inderal) 10 mg PO BID [facility] Last Admin: 06/08/18 09:33 Dose: 10 mg Tramadol HCl (Ultram) 50 mg PO Q4H PRN PRN Reason: Moderate to Severe Pain (6-10) Zolpidem Tartrate (Ambien) 5 mg PO HSPRN PRN PRN Reason: .SLEEP Last Admin: 06/08/18 00:14 Dose: 5 mg
--- NOTE | 2018-06-08 17:10 | MRI ---
MR OF THE BRAIN WITH AND WITHOUT CONTRAST: 06/08/18 INDICATION: 50-year-old female concern for giant cell arteritis and history of headaches. COMPARISON: CT of the brain dated 06/07/18. FINDINGS: There is a small focus of susceptibility artifact involving the cortex of the anterior right frontal lobe on image 21 of series 5. This corresponds to an area of very slight diminished signal intensity on both the FLAIR and T2 weighted images. No area of abnormal enhancement associated with this lesion . No area of restricted diffusion seen to suggest presence of ischemia. Septum pellucidum and third v entricle are midline. No additional signal abnormality or region of abnormal enhancement is noted. IMPRESSION: Small focus of susceptibility artifact without appreciable enhancement involving the cortex of the ri ght frontal lobe. This can be seen from hemosiderin deposition from possibly a small cavernous venous malformation. No additional abnormality is demonstrated. POS: [facility]
[2018-06-08] MEDS: carBAMazepine 200 MG TAB PO SCH (17:56)
[2018-06-09 04:27] LABS: Hemoglobin 8.4 g/dL (12.0-16.0)
[2018-06-09 04:43] LABS: Anion Gap 12 mmol/L (10-20); BUN (Urea Nitrogen) 6 mg/dL (9.8-20.1); Calc. Creatinine Clearance 126 mL/min (70-130); Calcium 8.8 mg/dL (7.8-10.44); Carbon Dioxide 21 mmol/L (22-29); Chloride 105 mmol/L (98-107); Estimated GFR-MDRD Greater than 90; Glucose 125 mg/dL (70-105); Potassium 4.3 mmol/L (3.5-5.1); Sodium 134 mmol/L (136-145)
[2018-06-09] MEDS: Acyclovir Sodium 570 MG in Sodium Chloride 0.9% 100 ML IVPB SCH ×3 (05:40→22:07)
[2018-06-09] MEDS: traMADol HCl 50 MG TAB PO PRN (05:41)
[2018-06-09] MEDS: Propranolol 10 MG TAB PO SCH ×2 (08:27→20:10)
[2018-06-09] MEDS: Multivitamin W/ Minerals 1 TAB PO SCH (08:28)
[2018-06-09] MEDS: Folic Acid 1 MG TAB PO SCH (08:28)
[2018-06-09] MEDS: carBAMazepine 200 MG TAB PO SCH ×2 (08:28→16:33)
[2018-06-09] MEDS: Gabapentin 100 MG CAP PO SCH ×2 (08:28→14:58)
[2018-06-09] MEDS: Magnesium Oxide 400 MG TAB PO SCH (08:28)
[2018-06-09] MEDS: Enoxaparin Sodium 40 MG/0.4 ML SYRINGE SC SCH (08:29)
--- NOTE | 2018-06-09 14:05 | PRG ---
DATE OF SERVICE: 06/09/2018 CHIEF COMPLAINT: Pain in the left side of the face. INTERVAL HISTORY: The patient has remained stable overnight. No new lesions except worsening of her facial rash. CURRENT MEDICATIONS: She is now on acyclovir, carbamazepine, tramadol and also methylprednisone for her acute pain. PHYSICAL EXAMINATION: VITAL SIGNS: Blood pressure is 121/65, temperature 98.4, pulse 93. NEUROLOGIC: She is alert, awake, oriented to time, place, person and appropriate conversation. Cranial nerve examination: She still has the erythematous vesicular rash in the left V1, V2 distribution of the trigeminal nerve. Motor: No focal weakness noted. IMPRESSION: The patient is a 53-year-old lady with likely herpes zoster infection in the left V1, V2 distribution of her trigeminal nerve and her diagnosis is most consistent with shingles of the face. RECOMMENDATIONS: Consider adding Neurontin in addition to Tegretol. Please call me if you have any further questions about this patient. I do not think this is temporal arteritis based on clinical examination and evaluation. JOHNATHAN
--- NOTE | 2018-06-09 16:32 | PDOC.PN ---
- Subjective Encounter Start Date: 06/09/18 (f/u rash) Encounter Start Time: 16:31 Subjective: Pt reports pain remains 9-10/10 in severity. Notes her vision in -: left eye remains blurred. Denies any new sx - Objective Vital Signs & Weight: Vital Signs (12 hours) Temp Pulse Resp BP Pulse Ox 06/09/18 12:21 98.4 F 93 20 121/65 95 06/09/18 08:20 97.8 F 99 20 124/70 98 06/09/18 05:23 98.5 F 101 H 18 117/63 99 Weight Admit Weight 165 lb Weight 165 lb 1.6 oz I&O: 06/08/18 06/09/18 06/10/18 06:59 06:59 06:59 Intake Total 2 1500 Balance 2 1500 Result Diagrams: 06/09/18 03:45 06/09/18 03:45 Phys Exam - Physical Examination Constitutional: NAD no scleral icterus Respiratory: no wheezing, no rales, no rhonchi Cardiovascular: RRR, no significant murmur Gastrointestinal: soft, non-tender, no distention Musculoskeletal: no edema Neurological: non-focal, moves all 4 limbs Deviation from normal: erythematous plaques and papules on left in V1/V2 distribution -: some with clusters of papules. Dx/Plan (1) Shingles Code(s): B02.9 - ZOSTER WITHOUT COMPLICATIONS Status: Acute (2) Chronic anemia Code(s): D64.9 - ANEMIA, UNSPECIFIED Status: Acute (3) HZV (herpes zoster virus) post herpetic trigeminal neuralgia Code(s): B02.22 - POSTHERPETIC TRIGEMINAL NEURALGIA Status: Acute (4) Leukopenia Code(s): D72.819 - DECREASED WHITE BLOOD CELL COUNT, UNSPECIFIED Status: Acute (5) Hyponatremia Code(s): E87.1 - HYPO-OSMOLALITY AND HYPONATREMIA Status: Chronic - Plan * Pain uncontrolled - change gabapentin to 300 mg HS. continue tegretol and morphine or tramadol prn * Vision changes - will see if Dr. Noriega can evaluate the patient in the hospital non-urgently * Pt has been on acyclovir - will continue this. * d/c solumedrol as not temporal arteritis * hyponatremia stable - continue to monitor * * leukopenia from yesterday - repeat tomorrow * anemia worsening - will order iron, vitamin studies in AM as well as FOBT * * dvt prophy- hold on lovenox pending re-eval of anemia in AM * gi prophy - not indicated * code status full * * reviewed plan of care with patient, no questions or further needs at end of eval.
[2018-06-09] MEDS: Gabapentin 300 MG CAP PO SCH (20:10)
[2018-06-10 05:13] LABS: #Lymphocytes 1.3 thou/uL (1.20-3.40); #Monocytes 1.1 thou/uL (0.11-0.59); #Neutrophils 10.1 thou/uL (1.40-6.50); %Basophils 0.1 % (0.0-1.0); %Eosinophils 0.1 % (0.0-10.0); %Lymphocytes 10.6 % (21.0-51.0); %Monocytes 8.9 % (0.0-10.0); %Neutrophils 80.3 % (42.0-75.0); Hemoglobin 8.7 g/dL (12.0-16.0); Mean Corpuscular HGB CONC 33.5 g/dL (32.0-36.0); Mean Corpuscular Hemoglobin 30.9 pg (27.0-31.0); Mean Corpuscular Volume 92.1 fL (78.0-98.0); Mean Platelet Volume 7.6 fL (7.4-10.4); Platelet Count 169 thou/uL (130-400); RBC Distribution Width 13.2 % (11.5-14.5); Red Blood Cell (RBC) Count 2.83 mill/uL (4.20-5.40); White Blood Cell (WBC) Count 12.5 thou/uL (4.8-10.8)
[2018-06-10] MEDS: Acyclovir Sodium 570 MG in Sodium Chloride 0.9% 100 ML IVPB SCH ×3 (05:22→22:00)
[2018-06-10] MEDS: Acetaminophen 325 MG TAB PO PRN (05:23)
[2018-06-10] MEDS: traMADol HCl 50 MG TAB PO PRN (05:23)
[2018-06-10 05:35] LABS: Anion Gap 12 mmol/L (10-20); BUN (Urea Nitrogen) 8 mg/dL (9.8-20.1); Calc. Creatinine Clearance 124 mL/min (70-130); Calcium 8.5 mg/dL (7.8-10.44); Carbon Dioxide 23 mmol/L (22-29); Chloride 104 mmol/L (98-107); Estimated GFR-MDRD Greater than 90; Glucose 114 mg/dL (70-105); Iron 23 ug/dL (50-170); Potassium 3.9 mmol/L (3.5-5.1); Sodium 135 mmol/L (136-145)
[2018-06-10 06:06] LABS: Folate (Folic Acid) 11.8 ng/mL (7.0-31.4)
[2018-06-10] MEDS: Multivitamin W/ Minerals 1 TAB PO SCH (07:54)
[2018-06-10] MEDS: Magnesium Oxide 400 MG TAB PO SCH (07:54)
[2018-06-10] MEDS: Folic Acid 1 MG TAB PO SCH (07:54)
[2018-06-10] MEDS: Propranolol 10 MG TAB PO SCH ×2 (07:54→20:08)
[2018-06-10] MEDS: carBAMazepine 200 MG TAB PO SCH ×2 (07:54→16:59)
--- NOTE | 2018-06-10 11:23 | PDOC.PN ---
- Subjective Encounter Start Date: 06/10/18 (f/u shingles) Encounter Start Time: 12:00 Subjective: Pt c/o persistent burning pain, improved for a few hours with morphine -: no change with tramadol. Denies new sx -: 4 doses morphine, 2 doses tramadol in past 24 hours - Objective Vital Signs & Weight: Vital Signs (12 hours) Temp Pulse Resp BP Pulse Ox 06/10/18 08:00 98.3 F 91 18 149/87 H 95 Weight Admit Weight 165 lb Weight 165 lb 1.6 oz I&O: 06/09/18 06/10/18 06/11/18 06:59 06:59 06:59 Intake Total 1500 1400 480 Balance 1500 1400 480 Result Diagrams: 06/10/18 03:45 06/10/18 03:45 Phys Exam - Physical Examination Constitutional: NAD erythematous plaque and papules along left side of face in v1/v2 distribution Respiratory: no wheezing, no rales, no rhonchi Cardiovascular: RRR, no significant murmur Gastrointestinal: soft, non-tender, no distention, positive bowel sounds Musculoskeletal: no edema, pulses present Neurological: non-focal, moves all 4 limbs Dx/Plan (1) Shingles Code(s): B02.9 - ZOSTER WITHOUT COMPLICATIONS Status: Acute (2) Chronic anemia Code(s): D64.9 - ANEMIA, UNSPECIFIED Status: Acute (3) HZV (herpes zoster virus) post herpetic trigeminal neuralgia Code(s): B02.22 - POSTHERPETIC TRIGEMINAL NEURALGIA Status: Acute (4) Leukopenia Code(s): D72.819 - DECREASED WHITE BLOOD CELL COUNT, UNSPECIFIED Status: Acute (5) Hyponatremia Code(s): E87.1 - HYPO-OSMOLALITY AND HYPONATREMIA Status: Chronic - Plan * * Pain uncontrolled - gabapentin changed to nightly, pt on tegretol. Will d/c tramadol as no improvement. Start norco 1-2 tabs q6h prn. Continue breakthrough morphine * Vision changes - Dr. Noriega to evaluate patient - called yesterday * continue acyclovir - change to PO when ready for discharge * solumedrol d/c yesterday as presentation was not c/w temporal arteritis * hyponatremia stable - continue to monitor * * iron deficiency anemia - start bid iron with colace. will need outpatient evaluation/colonoscopy consideration * * dvt prophy- scd's and ambulatory * gi prophy - not indicated * code status full * * reviewed plan of care with patient, no questions or further needs at end of eval. * * Anticipate home when pain controlled with oral meds and after Ophthalmology eval - maybe today
[2018-06-10] MEDS ORDERED: HYDROcodone/Acetaminophen 5/325 mg Tablet PO PRN (12:14)
[2018-06-10] MEDS: HYDROcodone/Acetaminophen 5/325 mg Tablet PO PRN ×2 (12:23→18:04)
[2018-06-10] MEDS: Ferrous Sulfate 325 MG TAB PO SCH (16:59)
[2018-06-10] MEDS: Docusate 100 MG CAP PO SCH (20:08)
[2018-06-10] MEDS: Gabapentin 300 MG CAP PO SCH (20:08)
[2018-06-11 05:03] LABS: #Basophils 0.1 thou/uL (0.0-0.2); #Eosinphils 0.1 thou/uL (0.0-0.7); #Lymphocytes 2.5 thou/uL (1.20-3.40); #Neutrophils 4.2 thou/uL (1.40-6.50); %Eosinophils 1.2 % (0.0-10.0); %Lymphocytes 31.8 % (21.0-51.0); %Monocytes 12.5 % (0.0-10.0); %Neutrophils 53.4 % (42.0-75.0); Hemoglobin 8.8 g/dL (12.0-16.0); Mean Corpuscular HGB CONC 33.4 g/dL (32.0-36.0); Mean Corpuscular Hemoglobin 30.5 pg (27.0-31.0); Mean Corpuscular Volume 91.2 fL (78.0-98.0); Mean Platelet Volume 7.5 fL (7.4-10.4); Platelet Count 128 thou/uL (130-400); RBC Distribution Width 13.2 % (11.5-14.5); Red Blood Cell (RBC) Count 2.89 mill/uL (4.20-5.40); White Blood Cell (WBC) Count 7.8 thou/uL (4.8-10.8)
[2018-06-11 05:19] LABS: Anion Gap 11 mmol/L (10-20); BUN (Urea Nitrogen) 8 mg/dL (9.8-20.1); Calc. Creatinine Clearance 120 mL/min (70-130); Calcium 8.1 mg/dL (7.8-10.44); Carbon Dioxide 24 mmol/L (22-29); Chloride 104 mmol/L (98-107); Estimated GFR-MDRD Greater than 90; Glucose 81 mg/dL (70-105); Potassium 3.7 mmol/L (3.5-5.1); Sodium 135 mmol/L (136-145)
[2018-06-11] MEDS: Acyclovir Sodium 570 MG in Sodium Chloride 0.9% 100 ML IVPB SCH ×3 (05:31→21:17)
[2018-06-11] MEDS: Ferrous Sulfate 325 MG TAB PO SCH ×2 (08:29→16:28)
[2018-06-11] MEDS: Docusate 100 MG CAP PO SCH ×2 (08:29→20:18)
[2018-06-11] MEDS: Multivitamin W/ Minerals 1 TAB PO SCH (08:29)
[2018-06-11] MEDS: Propranolol 10 MG TAB PO SCH ×2 (08:29→20:18)
[2018-06-11] MEDS: Folic Acid 1 MG TAB PO SCH (08:29)
[2018-06-11] MEDS: Magnesium Oxide 400 MG TAB PO SCH (08:29)
[2018-06-11] MEDS: carBAMazepine 200 MG TAB PO SCH ×2 (08:29→16:28)
[2018-06-11] MEDS ORDERED: Acetaminophen/Codeine 30-300mg Tablet PO PRN (10:31)
--- NOTE | 2018-06-11 10:36 | PDOC.PN ---
- Subjective Encounter Start Date: 06/11/18 Encounter Start Time: 10:33 Subjective: pain improved on po meds - Objective MAR Reviewed: Yes Vital Signs & Weight: Vital Signs (12 hours) Temp Pulse Resp BP Pulse Ox 06/11/18 08:00 98.2 F 81 16 97 06/11/18 07:07 98.2 F 81 16 137/85 97 Weight Admit Weight 165 lb Weight 165 lb 1.6 oz I&O: 06/10/18 06/11/18 06/12/18 06:59 06:59 06:59 Intake Total 1400 3220 Balance 1400 3220 Result Diagrams: 06/11/18 04:17 06/11/18 04:17 Phys Exam - Physical Examination classic rash L CN 5-1,2 Respiratory: clear to auscultation bilateral Cardiovascular: RRR, no significant murmur Gastrointestinal: soft, non-tender Musculoskeletal: no edema, edema present Neurological: non-focal Dx/Plan - Plan cont antiviral meds, DC MS, home tomorrow if pain controlled * .
[2018-06-11] MEDS: Gabapentin 300 MG CAP PO SCH (20:18)
[2018-06-12] MEDS: Acyclovir Sodium 570 MG in Sodium Chloride 0.9% 100 ML IVPB SCH (05:15)
[2018-06-12] MEDS: Multivitamin W/ Minerals 1 TAB PO SCH (07:59)
[2018-06-12] MEDS: Folic Acid 1 MG TAB PO SCH (07:59)
[2018-06-12] MEDS: Ferrous Sulfate 325 MG TAB PO SCH (07:59)
[2018-06-12] MEDS: Docusate 100 MG CAP PO SCH (07:59)
[2018-06-12] MEDS: carBAMazepine 200 MG TAB PO SCH (07:59)
[2018-06-12] MEDS: Magnesium Oxide 400 MG TAB PO SCH (08:00)
[2018-06-12] MEDS: Ondansetron HCl/PF 4 MG/2 ML Vial IVP PRN (08:25)
[2018-06-12] MEDS: Propranolol 10 MG TAB PO SCH (09:32)
[2018-06-12 11:36] VITALS: BP 124/82; TEMP 98.8
--- NOTE | 2018-06-12 12:48 | DIS ---
DATE OF ADMISSION: 06/07/2018 DATE OF DISCHARGE: 06/12/2018 PRIMARY CARE PROVIDER: Berto Chairez M.D. DISCHARGE DISPOSITION: Discharged home. FINAL DIAGNOSES: Acute herpes zoster of the left CN V1 and 2 distributions, history of alcohol abuse, anemia, cirrhosis. DISCHARGE MEDICATIONS: Include gabapentin 300 mg at bedtime, Tylenol #3 one or two every 6 hours as needed for pain, acyclovir 800 mg p.o. 5 times a day for 3 more days, Tegretol 200 mg 1 p.o. b.i.d. for 2 weeks plus her usual home medicines of thiamine 100 mg a day, Inderal 10 mg twice a day, Protonix 40 mg a day, lactulose 20 grams daily, folic acid 1 mg daily. ALLERGIES: No known drug allergies. PENDING AT TIME OF DISCHARGE: Nothing. CODE STATUS: FULL CODE. HOSPITAL COURSE: The patient was admitted through [facility] with severe left facial pain. Patient was recently thought to have possible temporal arteritis, she had an MRI scan, no acute intracranial abnormality. Brain CT, no acute intracranial abnormality. Initial laboratory showed white count 6.0, hemoglobin 10.4, platelet count 168. Comp metabolic profile showed bilirubin 1.3, AST 83, sodium 130, otherwise unremarkable. B12 was done, 726. Folate was done, 1180. Ferritin is 21.39. Sedimentation rate was 64. She was started on high dose steroids. On 06/08/2018, the burning pain had persisted. She developed a new rash. Diagnosis of acute herpes zoster was made. She was started on IV acyclovir, initially treated with discontinuation of the steroids pain medicines, Tegretol 200 twice a day, and gabapentin were added. She was seen in consultation by Dr. Krystina Laguerre, she now shows marked improvement in her pain, marked improvement in her rash. She is being discharged on the aforementioned medicines. She has been asked to follow up with her PCP in 1 week. No procedures were done. JOHNATHAN
== END 2018-06-12 14:02 | disposition home or self-care (01) | DRG 74 ==
LOC: ERS 16:33 → T4-B 19:47
PROVIDERS: ADMIT Hospitalist; ATTEND Hospitalist
DX: B02.22 Postherpetic trigeminal neuralgia (principal); E87.1 Hypo-osmolality and hyponatremia; K21.9 Gastro-esophageal reflux disease without esophagitis; I34.1 Nonrheumatic mitral (valve) prolapse; H26.9 Unspecified cataract; K70.10 Alcoholic hepatitis without ascites; F10.20 Alcohol dependence, uncomplicated; M79.7 Fibromyalgia; D72.819 Decreased white blood cell count, unspecified; D50.9 Iron deficiency anemia, unspecified; K74.60 Unspecified cirrhosis of liver; Z83.3 Family history of diabetes mellitus; Z82.49 Family history of ischemic heart disease and other diseases of the circulatory system
CPT/HCPCS: 36415; 70450; 70553; 80048; 80053; 82607; 82728; 82746; 83540; 85014; 85018; 85025; 85652; 86140; 96365; 96372; 96375; 96376; J0133; J1650; J1720; J1885; J2270; J2405; J2930; J7050; Q0162

== ENCOUNTER 2018-06-21 23:35 | Emergency (ER) | payer SELFPAY ==
[2018-06-22 00:34] LABS: #Basophils 0.1 thou/uL (0.0-0.2); #Lymphocytes 3.6 thou/uL (1.20-3.40); #Neutrophils 7.2 thou/uL (1.40-6.50); %Basophils 0.9 % (0.0-1.0); %Eosinophils 0.1 % (0.0-10.0); %Lymphocytes 30.4 % (21.0-51.0); %Monocytes 8.3 % (0.0-10.0); %Neutrophils 60.4 % (42.0-75.0); Hemoglobin 9.9 g/dL (12.0-16.0); Mean Corpuscular HGB CONC 34.2 g/dL (32.0-36.0); Mean Corpuscular Hemoglobin 30.5 pg (27.0-31.0); Mean Corpuscular Volume 89.2 fL (78.0-98.0); Platelet Count 180 thou/uL (130-400); RBC Distribution Width 14.5 % (11.5-14.5); Red Blood Cell (RBC) Count 3.24 mill/uL (4.20-5.40); White Blood Cell (WBC) Count 11.9 thou/uL (4.8-10.8)
[2018-06-22 00:40] LABS: INR-International Normal Ratio 1.3; PTT 35.7 SEC (22.9-36.1); Prothrombin Time 16.3 SEC (12.0-14.7)
== END 2018-06-22 01:27 | disposition home or self-care (01) ==
LOC: ERS 23:35
DX: B02.9 Zoster without complications (principal); F10.129 Alcohol abuse with intoxication, unspecified; Y90.8 Blood alcohol level of 240 mg/100 ml or more; K21.9 Gastro-esophageal reflux disease without esophagitis; I10 Essential (primary) hypertension; I34.1 Nonrheumatic mitral (valve) prolapse; Z79.891 Long term (current) use of opiate analgesic; Z79.899 Other long term (current) drug therapy
CPT/HCPCS: 36415; 80307; 82274; 85025; 85610; 85730; 99283

== ENCOUNTER 2018-09-13 10:14 | Emergency (ER) | payer OTHER ==
[2018-09-13] MEDS ORDERED: Lorazepam 2 MG/ML VIAL ONE (12:42)
[2018-09-13 12:45] LABS: ALT (SGPT) 27 U/L (8-55); AST (SGOT) 92 U/L (5-34); Albumin 3.2 g/dL (3.5-5.0); Alkaline Phosphatase 153 U/L (40-150); Anion Gap 10 mmol/L (10-20); BUN (Urea Nitrogen) Less than 4 mg/dL (9.8-20.1); Bilirubin, Total 1.4 mg/dL (0.2-1.2); Calc. Creatinine Clearance 0 mL/min (70-130); Calcium 8.4 mg/dL (7.8-10.44); Carbon Dioxide 28 mmol/L (22-29); Chloride 104 mmol/L (98-107); Estimated GFR-MDRD Greater than 90; Globulin 4.6 g/dL (2.4-3.5); Glucose 100 mg/dL (70-105); Lipase 53 U/L (8-78); Potassium 3.3 mmol/L (3.5-5.1); Protein, Total 7.8 g/dL (6.0-8.3); Sodium 139 mmol/L (136-145)
[2018-09-13 13:07] LABS: #Basophils 0.1 thou/uL (0.0-0.2); #Eosinphils 0.1 thou/uL (0.0-0.7); #Lymphocytes 3.2 thou/uL (1.20-3.40); #Monocytes 1.1 thou/uL (0.11-0.59); #Neutrophils 5.4 thou/uL (1.40-6.50); %Basophils 1.1 % (0.0-1.0); %Eosinophils 1.2 % (0.0-10.0); %Lymphocytes 31.9 % (21.0-51.0); %Monocytes 10.9 % (0.0-10.0); %Neutrophils 54.9 % (42.0-75.0); Hemoglobin 8.4 g/dL (12.0-16.0); Hypochromia SLIGHT = 6-15 cells (100X) (0-5/hpf); MDiff Complete? YES; Mean Corpuscular HGB CONC 29.4 g/dL (32.0-36.0); Mean Corpuscular Hemoglobin 22.6 pg (27.0-31.0); Mean Corpuscular Volume 76.8 fL (78.0-98.0); Mean Platelet Volume 7.9 fL (7.4-10.4); Microcytosis SLIGHT = 6-15 cells (100X) (0-5/hpf); Platelet Count 136 thou/uL (130-400); RBC Distribution Width 17.9 % (11.5-14.5); White Blood Cell (WBC) Count 9.9 thou/uL (4.8-10.8)
[2018-09-13 13:17] LABS: Bilirubin Negative (Negative); Blood, Urine Negative (Negative); Clarity CLEAR (Clear); Glucose, Urine (Dipstick) Negative (Negative); Leukocyte Negative (Negative); Nitrite Negative (Negative); Protein, Urine (Dipstick) Negative (Neg-Trace); Specific Gravity, Urine 1.004 (1.002-1.036); Urobilinogen 0.2 mg/dL (0.2-1.0)
--- NOTE | 2018-09-13 13:57 | RAD ---
FRONTAL RADIOGRAPH CHEST 2 VIEWS ABDOMEN: Date: 09/13/18 COMPARISON: None. HISTORY: Constipation, shingles, and epistaxis. FINDINGS: There is no pneumothorax, lobar consolidation, or alveolar edema. There is no blunting of the right costophrenic angle. There is elevation of the left hemidiaphragm. T here is also focal pleural and parenchymal opacity within the right lower lobe/right lung base, new. The upright imaging demonstrates no free intraperitoneal air. There is diffuse nonspecific gaseous distention of small bowel throughout the abdomen/pelvis, signifi cance/etiology uncertain. IMPRESSION: 1. New pleural and parenchymal opacity in the right lung base may signify right pleural effusion, vo lume loss, and/or infectious pneumonitis. 2. No free intraperitoneal air. There is diffuse gaseous distention of small bowel centrally within the abdomen/pelvis, which may signify ileus or obstruction. This could be better assessed via CT exam ination if clinically warranted. POS: [facility]
--- NOTE | 2018-09-14 08:16 | CON ---
DATE OF CONSULTATION: 09/13/2018 REQUESTING PHYSICIAN: Dr. Bermudez. REASON FOR CONSULTATION: Hematemesis and hemorrhagic shock. HISTORY OF PRESENT ILLNESS: Aicha Osorio is a 53-year-old woman, previously seen by my GI colleague, Dr. Maciel Stewart. She has a history of chronic ongoing alcohol abuse and alcoholic liver disease. She has had multiple presentations and hospitalizations over the past couple of years with acute alcohol intoxication and withdrawal symptoms. It looks like in October 2016, she had presented with acute hematemesis and underwent EGD performed by Dr. Cline. At that time, she was found to have a long actively bleeding Snehal-Crews tear, which he actually cauterized. There was no evidence of esophageal varices at that time. There was a stricture of the esophagus, which was not dilated at that time. She was last seen by us in April 2018, when she was hospitalized with some abdominal discomfort in the context of alcohol withdrawal. She was pancytopenic at that time, and the impression was that she probably did have some underlying alcoholic cirrhosis. She had new symptomatic ascites at that time, and diagnostic tap was negative for SBP. The patient states that she continues to drink alcohol everyday. She had a couple of beers before presenting to the emergency department early this morning, complaining of abdominal discomfort and intermittent vomiting. On the ER lab workup this morning, her hemoglobin was 8.4, which was frankly about her baseline from prior admissions. No INR was drawn this morning, but it was 1.3 as recently as 3 months ago. Per note, her BUN this morning was less than 4. She was stable and discharged home. However, she says at about 6:30 p.m., she started throwing up forcefully again and then she threw up a large amount of bright red blood. This happened at home and also happened again here upon arrival. She was found to be hemodynamically unstable, tachycardic into the 130s and hypotensive with initial blood pressure of 60/30. She has now received 2 L of IV fluids and remains tachycardic, heart rate 125, though her blood pressure has improved to 120/60. She is going to be getting some tranexamic acid. Labs are still pending, but 2 units of blood have been ordered. They are getting IV access and planning to start IV Protonix and octreotide as well. Admission to the ICU is planned. The patient does not have any other complaints aside from continued nausea, continued epigastric/left upper quadrant abdominal pain, and some lightheadedness. REVIEW OF SYSTEMS: Full review of systems including constitutional; head, eyes, ears, nose, and throat; GI, , cardiovascular, respiratory, musculoskeletal, neurologic systems are negative, except as noted in the HPI. PAST MEDICAL HISTORY: 1. Chronic ongoing alcohol abuse, likely alcoholic cirrhosis. 2. Hypertension. 3. Snehal-Crews tear with active bleeding, October 2016. 4. Chronic back pain. 5. Prior polysubstance abuse. 6. Ankle surgery. 7. Endometrial ablation. 8. Breast augmentation. 9. Tubal ligation. FAMILY HISTORY: Negative for GI malignancy. SOCIAL HISTORY: She continues to abuse alcohol up to 12-pack per day. No recent drug use. ALLERGIES: IODINE. OUTPATIENT MEDICATIONS: 1. Tylenol No.3 two tablets daily. 2. Metoprolol 25 mg daily. 3. Gabapentin 300 mg nightly. PHYSICAL EXAMINATION: VITAL SIGNS: Blood pressure 120/60, pulse 125. Initially pulse was 130 and blood pressure 60/30. 98% oxygen saturation on room air. GENERAL: Pale 53-year-old woman, lying in bed, in mild distress. MENTAL: She is alert and oriented to person, place, and time. She is able to give me some details of her symptoms. SKIN: She is pale. No rashes are palpable. EYES: No scleral icterus. Extraocular movements intact. ENT: Mucous membranes moist. No oral lesions. LYMPH NODES: No submandibular or supraclavicular lymphadenopathy. THYROID: Nontender to palpation. HEART: Regular tachycardia. LUNGS: Clear to auscultation bilaterally. ABDOMEN: Mild to moderate distention. Dull to percussion throughout. Tender to palpation in the epigastrium. No guarding or rebound tenderness. EXTREMITIES: No peripheral edema. VESSELS: Radial pulses 2+ bilaterally. NEUROLOGIC: Cranial nerves 2 through 12 intact bilaterally. No asterixis. LABORATORY STUDIES: Lab values I have are from earlier this morning. Hemoglobin was 8.4, WBC 9.9, platelets 136. Sodium 139, potassium 3.3, BUN less than 4, creatinine 0.52, total bilirubin 1.4, alkaline phosphatase 153, AST 92, ALT 27, albumin 3.2, lipase 53. Urinalysis negative. From June 2018, INR was 1.3. From April 2018, viral hepatitis serologies were negative. ASSESSMENT AND PLAN: 1. Acute hematemesis. 2. Shock, concerned for hemorrhagic shock. 3. Alcoholic liver disease. 4. Prior history of Snehal-Crews tear, status post cautery, October 2016. 5. History of alcoholic cirrhosis. We are still awaiting labs to return, compare hemoglobin from earlier to now, but the patient's hemodynamic instability is concerning. She evidently had several episodes of large volume hematemesis prior and just after arrival. Note that she had no esophageal varices on her last EGD, but that was almost 2 years ago, and she has continued to drink. Possible etiologies would include development of new esophageal varices versus peptic ulcer disease, or possibly recurrent Snehal-Crews tear. We will plan for EGD on an urgent basis. For now, resuscitation is in progress, and note her blood pressure has improved significantly. I agree with administration of TXA and blood products as needed. I would have her on a Protonix and octreotide drip for now. Plan for ICU admission under hospitalist service and close observation. The patient is also going to need IV antibiotics due to gastrointestinal bleeding in a patient with known cirrhosis. I would recommend IV ceftriaxone. Further recommendations following EGD, again planned for later tonight. Job ID: [id number]
== END 2018-09-13 14:30 | disposition home or self-care (01) ==
LOC: ERS 10:14
DX: K59.00 Constipation, unspecified (principal); F10.10 Alcohol abuse, uncomplicated; B02.9 Zoster without complications; K21.9 Gastro-esophageal reflux disease without esophagitis; I10 Essential (primary) hypertension; Z87.891 Personal history of nicotine dependence; Z79.899 Other long term (current) drug therapy
CPT/HCPCS: 36415; 74022; 80053; 81003; 83690; 85025; 96361; 96374; J2060

== ENCOUNTER 2018-09-13 20:59 | Inpatient (IN) | payer OTHER ==
[~2018-09-13 20:59] MED LIST changes: -ISOVUE-370 76%-LOCM 1 ML ONE; +PHENYLEPHRINE-NS 100 MCG/ML 10 ML SYRINGE ONE; +PROPOFOL 200 MG/20 ML VIAL ONE; +Succinylcholine Chloride 20 MG/ML 10 ml SYRINGE FS ONE
[2018-09-13] MEDS ORDERED: Tranexamic Acid 1,000 MG/10 ML VIAL ONE ×2 (21:18→21:31)
[2018-09-13] MEDS ORDERED: Ondansetron PF 4 MG/2 ML Vial ONE (21:36)
[2018-09-13] MEDS ORDERED: Pantoprazole 40 MG VIAL ONE (21:36)
[2018-09-13] MEDS ORDERED: Pantoprazole 80 MG in Sodium Chloride 0.9% 100 ML IVP SCH (22:00)
[2018-09-13] MEDS ORDERED: Octreotide Acetate 1,250 MCG in Sodium Chloride 0.9% 250 ML 250 ML IVPB SCH (22:00)
[2018-09-13 22:03] LABS: INR-International Normal Ratio 1.9; PTT 35.1 SEC (22.9-36.1)
[2018-09-13 22:07] LABS: Hemoglobin 5.8 g/dL (12.0-16.0)
[2018-09-13] MEDS ORDERED: Ondansetron PF 4 MG/2 ML Vial IVP PRN (22:22)
[2018-09-13 22:26] LABS: Mean Corpuscular HGB CONC 30.1 g/dL (32.0-36.0); Mean Corpuscular Hemoglobin 24.5 pg (27.0-31.0); Mean Corpuscular Volume 81.5 fL (78.0-98.0); Mean Platelet Volume 9.2 fL (7.4-10.4); Platelet Count 98 thou/uL (130-400); RBC Distribution Width 17.8 % (11.5-14.5); Red Blood Cell (RBC) Count 2.35 mill/uL (4.20-5.40)
[2018-09-13 22:27] LABS: Anisocytosis SLIGHT = 6-15 cells (100X) (0-5/hpf); Band 5 % (5-11); Lymphocytes 15 % (21-51); MDiff Complete? YES; Monocytes 1 % (0-10); Neutrophil 76 % (42-75); PLT Morphology Comment Appears Decreased
[2018-09-13] MEDS ORDERED: Sodium Chloride 0.9% 1,000 ML IV SCH (22:30)
[2018-09-13 22:32] LABS: ALT (SGPT) 23 U/L (8-55); AST (SGOT) 100 U/L (5-34); Albumin 2.1 g/dL (3.5-5.0); Alkaline Phosphatase 85 U/L (40-150); Anion Gap 17 mmol/L (10-20); BUN (Urea Nitrogen) 9 mg/dL (9.8-20.1); Bilirubin, Total 1.3 mg/dL (0.2-1.2); Calc. Creatinine Clearance 0 mL/min (70-130); Calcium 6.9 mg/dL (7.8-10.44); Carbon Dioxide 16 mmol/L (22-29); Chloride 108 mmol/L (98-107); Estimated GFR-MDRD Greater than 90; Globulin 3.2 g/dL (2.4-3.5); Glucose 119 mg/dL (70-105); Protein, Total 5.3 g/dL (6.0-8.3); Sodium 136 mmol/L (136-145)
[2018-09-13 23:02] LABS: Hemoglobin 8.1 g/dL (12.0-16.0)
[2018-09-13 23:33] LABS: Lactic Acid 7.6 mmol/L (0.5-2.2)
[2018-09-13] MEDS ORDERED: cefTRIAXone\\ROCEPHIN 1 GM in Sodium Chloride 0.9% 100 ML IVPB SCH (23:59)
[2018-09-14] MEDS ORDERED: Midazolam HCl 2 mg/2 ml Vial ONE (00:14)
[2018-09-14] MEDS ORDERED: Sodium Bicarb 50 MEQ/50 ML Abboject 8.4% SYRINGE ONE (00:33)
[2018-09-14] MEDS ORDERED: Fentanyl 100 MCG/2 ML VIAL ONE (00:39)
[2018-09-14] MEDS ORDERED: Propofol 1,000 MG/100 ML VIAL IV ONE ×2 (00:56→07:57)
[2018-09-14 01:19] LABS: Hemoglobin 10.1 g/dL (12.0-16.0); Mean Corpuscular HGB CONC 32.8 g/dL (32.0-36.0); Mean Corpuscular Hemoglobin 28.4 pg (27.0-31.0); Mean Corpuscular Volume 86.5 fL (78.0-98.0); Mean Platelet Volume 9.4 fL (7.4-10.4); Platelet Count 78 thou/uL (130-400); RBC Distribution Width 17.4 % (11.5-14.5); Red Blood Cell (RBC) Count 3.57 mill/uL (4.20-5.40); White Blood Cell (WBC) Count 11.5 thou/uL (4.8-10.8)
[2018-09-14 01:21] LABS: Actual Bicarbonate (HCO3a) 19.4 mEq/L (22-28); Base Excess (BEa) -8.2 mEq/L (-2.0 to +3.0); CO2 Tension 47.1 mmHg (35.0-45.0); Calcium, Ionized 0.96 mmol/L (1.12-1.30); O2 Tension (PaO2) 86.3 mmHg (80.0-100.0); Potassium - ABG Lab 4.14 mmol/L (3.70-5.30)
[2018-09-14 01:23] LABS: ALV-art Gradient 282.625 (0-20); Puncture Site ALINE; pH, Arterial 7.23 (7.35-7.45)
[2018-09-14 01:23] LABS: INR-International Normal Ratio 1.7; PTT 36.3 SEC (22.9-36.1); Prothrombin Time 20.3 SEC (12.0-14.7)
[2018-09-14 01:30] LABS: Anisocytosis SLIGHT = 6-15 cells (100X) (0-5/hpf); Band 10 % (5-11); Lymphocytes 18 % (21-51); MDiff Complete? YES; Monocytes 10 % (0-10); Myelocyte 1 % (0-0); Neutrophil 61 % (42-75); PLT Morphology Comment Appears Decreased
[2018-09-14] MEDS ORDERED: Labetalol HCl 100 MG/20 ML VIAL SLOW IVP SCH (02:00)
[2018-09-14] MEDS: Sodium Chloride 0.9% 1,000 ML IV SCH ×2 (02:11→08:32)
[2018-09-14] MEDS ORDERED: Propofol BOLUS 1,000 MG/100 ML VIAL IV PRN ×2 (04:10→06:30)
[2018-09-14] MEDS ORDERED: Fentanyl CADD 250 ML IVPB SCH ×2 (04:10→06:30)
[2018-09-14] MEDS ORDERED: fentaNYL Citrate/PF 2,000 MCG in Sodium Chloride 0.9% 60 ML IV SCH ×2 (04:10→06:30)
[2018-09-14] MEDS ORDERED: Morphine 2 MG/ML SYRINGE SLOW IVP PRN ×2 (04:10→06:30)
[2018-09-14] MEDS ORDERED: Fentanyl BOLUS 250 ML IVPB PRN ×2 (04:10→06:30)
[2018-09-14] MEDS: Propofol 1,000 MG/100 ML VIAL IV PRN ×2 (04:33→08:00)
[2018-09-14 04:34] LABS: #Monocytes 1.1 thou/uL (0.11-0.59); #Neutrophils 8.2 thou/uL (1.40-6.50); %Basophils 0.3 % (0.0-1.0); %Eosinophils 0.2 % (0.0-10.0); %Lymphocytes 9.4 % (21.0-51.0); %Monocytes 11.1 % (0.0-10.0); Hemoglobin 9.4 g/dL (12.0-16.0); Mean Corpuscular HGB CONC 32.5 g/dL (32.0-36.0); Mean Corpuscular Hemoglobin 27.9 pg (27.0-31.0); Mean Corpuscular Volume 85.8 fL (78.0-98.0); Mean Platelet Volume 8.4 fL (7.4-10.4); Platelet Count 110 thou/uL (130-400); RBC Distribution Width 17.1 % (11.5-14.5); Red Blood Cell (RBC) Count 3.38 mill/uL (4.20-5.40); White Blood Cell (WBC) Count 10.3 thou/uL (4.8-10.8)
[2018-09-14] MEDS: Lorazepam 2 MG/ML VIAL SLOW IVP PRN ×2 (04:34→08:01)
[2018-09-14 05:10] LABS: Anion Gap 17 mmol/L (10-20); BUN (Urea Nitrogen) 9 mg/dL (9.8-20.1); Calc. Creatinine Clearance 0 mL/min (70-130); Calcium 7.4 mg/dL (7.8-10.44); Carbon Dioxide 15 mmol/L (22-29); Chloride 109 mmol/L (98-107); Estimated GFR-MDRD Greater than 90; Glucose 114 mg/dL (70-105); Potassium 3.8 mmol/L (3.5-5.1); Sodium 137 mmol/L (136-145)
[2018-09-14 05:53] LABS: Actual Bicarbonate (HCO3v) 17 mEq/L (22-28); Base Excess -5.5 mEq/L (-2.0 to +3.0); Calcium, Ionized 0.92 mmol/L (1.16-1.32); Chloride (ABG LAB) 109 mmol/L (98-106); Hemoglobin (Hb) 9.8 g/dL (11.7-16.0); Potassium - ABG Lab 3.76 mmol/L (3.70-5.30); Sodium 136.4 mmol/L (133-146); pH (venous) 7.48 (7.32-7.43)
[2018-09-14] MEDS ORDERED: Piperacillin/Tazobactam 3.375 GM in Sodium Chloride 0.9% 100 ML IVPB SCH (06:00)
[2018-09-14 06:09] LABS: Hemoglobin 9.1 g/dL (12.0-16.0)
[2018-09-14 06:26] LABS: Lactic Acid 5.1 mmol/L (0.5-2.2)
[2018-09-14] MEDS ORDERED: Ventilator Sedation Protocol 1 EACH FS ONE (06:26)
[2018-09-14] MEDS ORDERED: Propofol 1,000 MG/100 ML VIAL IV PRN (06:30)
[2018-09-14] MEDS ORDERED: Lorazepam 2 MG/ML VIAL SLOW IVP PRN ×2 (06:30→10:05)
--- NOTE | 2018-09-14 06:40 | HP ---
PRIMARY CARE PHYSICIAN: The patient goes to clinic. TIME OF EVALUATION: 10:30 p.m. CODE STATUS: Full code. CHIEF COMPLAINT: Throwing up blood. HISTORY OF PRESENT ILLNESS: This is a 53-year-old female patient with past medical history of alcohol abuse, also underlying history of liver cirrhosis, the patient denies which she had a diagnosis before, hypertension, chronic back pain, and history of stomach ulcers, came to the hospital after having multiple, recurrent, severe GI bleeding, presenting with hematemesis. The patient presented also with systolic in the 60s and 70s, aggressive hydration, regurgitation, and blood transfusion was given with recovery of the blood pressure to the systolics in 110 to 120 and heart rate has remained in the one teens to 130. The patient has been stabilized. The patient is going for EGD, Anesthesia has seen the patient, GI will attempt to control the bleeding. Unclear etiology, no alleviating factors, the patient has continued to throw up blood. The patient has associated weakness, associated shortness of breath, and associated thirst. REVIEW OF SYSTEMS: CONSTITUTIONAL: The patient has fatigue and weakness. CARDIOVASCULAR: The patient has palpitations. RESPIRATORY: The patient has shortness of breath. GASTROINTESTINAL: The patient has hematemesis that is significant and nausea. No diarrhea. STAR[employer] C[employer] POW[employer] MIXER: No dizziness or headache. The patient does feel lightheaded. GENITOURINARY: No burning on urination. EXTREMITIES: No leg swelling. All other systems were reviewed and negative except for the findings mentioned above. PAST MEDICAL HISTORY: As mentioned in the HPI. FAMILY HISTORY: Reviewed and noncontributory for current presentation. SOCIAL HISTORY: The patient drinks alcohol on a daily basis. PAST SURGICAL HISTORY: Orthopedic surgery, left ankle; endometrial ablation; breast augmentation; QAMARKER] surgery; and tubal ligation. ALLERGIES: NO KNOWN DRUG ALLERGIES. MEDICATIONS: 1. Tylenol. 2. Metoprolol. 3. Gabapentin. 4. Valacyclovir. 5. Lactulose. PHYSICAL EXAMINATION: VITAL SIGNS: On presentation; blood pressure 79/52 with heart rate 128, respiratory rate 14, and oxygen saturation 95 on room air. GENERAL APPEARANCE: The patient was examined at bedside. The patient is alert, generalized weakness, ill appearance, in mild distress. HEENT: Eyes, normal conjunctivae. Moist oral mucosa. The patient is pale. NECK: No JVD. RESPIRATORY: Bilateral air entry. No rales. No wheezes. Symmetric expansion. CARDIOVASCULAR: The patient is tachycardic. Regular rhythm. No murmurs. No gallops. Bilateral leg edema. ABDOMEN: Soft. Bowel sounds present. MUSCULOSKELETAL: Baseline range of motion and strength. No tenderness. SKIN: Warm and intact. No burn or rash. No redness. EXTREMITIES: Peripheral pulses are present. Capillary refill seems to be intact. NEUROLOGIC: No evidence of any new focal weakness. Baseline speech. Cranial nerves seem to be intact. PSYCHIATRIC: The patient is in good mood, not sad, and oriented. Optimal judgment. LABORATORY DATA: Labs were reviewed. White count 9.0, hemoglobin 5.8, MCV 81, and platelet count 98. Coagulation; PT 22, INR 1.9, and PTT 35. Chemistry; sodium 136, potassium 5.0, chloride 108, carbon dioxide 16, anion gap 17, BUN 9, and creatinine 0.5. GFR greater than 90. Glucose 119, calcium 6.9, and direct bilirubin 1.3. AST 100, ALT 23, and alkaline phosphatase 85. Albumin 2.1. Serum total protein 5.3. Old records were reviewed. There is possibility for ileus seen on the abdominal series that was done earlier today. We will repeat KUB, might need to do CT of abdomen once the patient is more stable to rule out any other complications in the abdomen. ASSESSMENT AND PLAN: The patient was placed in the hospital with the following medical problems: 1. Acute severe active gastrointestinal bleeding, the patient has continued to throw up blood a significant amount. The patient has received 2 units, and received another 2. We will continue to monitor hemoglobin. The patient has gone for procedure. Dr. Stewart is here in the hospital. Further recommendations from GI. The patient will go to ICU after this, after initial resuscitation with fluids and blood, blood pressure has been stable in the 120s for now, heart rate has continued to be in the 120s, the patient looks very ill and high risk for complications. Also start , also start her on Protonix. 2. Acute blood loss anemia. The patient has hemoglobin of 5.6, probably might have dropped more after transfusion, has continued to have significant amount of hematemesis. We will transfuse as needed. 3. History of alcohol abuse. The patient is advised to quit drinking alcohol. She stated she would like to try to quit drinking. 4. Possible history of liver disease. The patient denies any diagnosis of liver cirrhosis, the INR was high, the patient has presented with severe gastrointestinal bleeding, platelets are low, albumin is low and most likely the patient has cirrhosis, the patient has been also treated with for this reason . Also treated for possible bleeding from GI tract due to portal hypertension. 5. History of gastroesophageal reflux disease. The patient is on Protonix, further recommendations from GI, going for EGD now. 6. History of hypertension. Blood pressure medications will not be reconciled due to high risk for . 7. Deep vein thrombosis prophylaxis. The patient will be placed on SCDs. Job ID: [id number]
--- NOTE | 2018-09-14 08:16 | OP ---
DATE OF PROCEDURE: 09/14/2018 GI ENDOSCOPY NOTE CARTOGRAPHIC AIDE SURGEON: None. PROCEDURE PERFORMED: Esophagogastroduodenoscopy with control of hemorrhage. INDICATIONS: 1. Acute hematemesis. 2. Hemorrhagic shock. 3. History of alcoholic cirrhosis. 4. Prior history of bleeding from Snehal Crews tear. MEDICATIONS: See Anesthesia record. FINDINGS: After discussion of the risks, benefits, and alternatives of the procedure, informed consent was obtained and witnessed. Pre-endoscopic cardiopulmonary examination was satisfactory. Time-out was performed before sedation was achieved. Sedation was achieved with Anesthesia assistance in the endoscopy unit. The patient was endotracheally intubated for airway protection and placed in left lateral decubitus position. A Pentax adult therapeutic upper endoscope was placed into the oropharynx and passed through the cricopharyngeus under direct visualization. There was a large amount of fresh blood and clot filling up the esophagus and the entire gastric fundus. I spent over an hour in extensive irrigation and suctioning out of multiple blood clots and fresh blood. Thankfully, I was eventually able to clear the entire stomach and esophagus off fresh blood and clots, and get a good examination. There was severe erosive esophagitis in the distal esophagus. For about 15 cm of the distal esophagus, there were several superficial linear ulcerations, but no evidence of significant bleeding from these sites. At 40 cm from the incisors, which was just past the GE junction, there was a single small ulceration, but with a visible vessel. This was an area where lot of clots had been suctioned out, and this was the likely source of her massive hemorrhage today. There was some oozing around the site. I cauterized this visible vessel with 10-Faroese bipolar probe and good hemostasis was achieved. The remainder of the stomach was examined. There was erosive gastritis involving primarily the gastric body with several areas of submucosal hemorrhage and significant friability, but no other visible vessels noted. No other actively bleeding lesions. No evidence of gastric varices. The endoscope was passed through the pylorus and into the first and second portions of the duodenum, which appeared unremarkable. There were no esophageal varices. At this point, the upper endoscope was completely withdrawn and the patient allowed to recover. The patient tolerated the procedure well. There were no immediate postprocedure complications. IMPRESSION: 1. Visible vessel at the gastroesophageal junction at 40 cm from the incisors. Successfully cauterized with 10 Faroese bipolar probe. Hemostasis achieved. 2. Severe erosive gastritis. 3. Severe erosive esophagitis in the distal esophagus. 4. No evidence of esophageal or gastric varices. RECOMMENDATIONS: 1. ICU admission. 2. Trend H and H. Transfuse as needed. 3. Continue with fluid resuscitation. 4. Continue with the IV PPI. I would stick with the IV PPI for 72 hours and then afterwards, transition her to oral PPI twice daily. 5. Octreotide can be stopped. 6. I would recommend IV ceftriaxone given GI bleeding in a patient with cirrhosis. 7. The patient is going to need to find a way to stop all alcohol use going forward. Job ID: [id number]
--- NOTE | 2018-09-14 08:22 | CT ---
PRELIMINARY REPORT/[facility]/EMERGENTY AFTER-HOURS PROCEDURE CT Abdomen and Pelvis With Contrast EXAM DATE/TIME: 09/14/2018 2:41 AM CLINICAL HISTORY: 53 years old, female; Signs and symptoms; Other: Abdominal distension; Additional info: R/O acute abd ileus TECHNIQUE: Axial computed tomography images of the abdomen and pelvis with intravenous contrast. Coronal reformatted images were created and reviewed. COMPARISON: DX XR Abdomen 1 View/KUB 09/14/2018 1:43 AM FINDINGS: Exam limited by artifact secondary to body habitus and patient's arms being placed along their sides. Lower thorax: Dense bibasilar atelectasis. ABDOMEN: Liver: Enlarged liver at 22 cm. Extensive ill defined areas of decreased attenuation throughout the l iver, difficult to discern as areas of fatty infiltration vs mass lesions given extensive artifact me ntioned above. Gallbladder and bile ducts: Moderate gallbladder distention. No calcified stones. Pancreas: No acute pathology. No ductal dilation. Spleen: No solid mass. No splenomegaly. Adrenals: No mass. Kidneys and ureters: No solid mass. No hydronephrosis. Stomach and bowel: Advanced colonic wall thickening from cecum to sigmoid colon, consistent with coli tis, likely pseudomemranous colitis given distribution of disease. Gastric and small bowel distention , without focal transition, most consistent with reactive ileus. Appendix: No evidence of appendicitis. PELVIS: Bladder: Bladder decompressed by Ritter. Reproductive: Unremarkable as visualized. ABDOMEN and PELVIS: Intraperitoneal space: Moderate volume ascites. Bones/joints: Chronic degenerative spinal changes without acute fracture or dislocation. Soft tissues: Unremarkable. Vasculature: No abdominal aortic aneurysm. Lymph nodes: No enlarged lymph nodes. IMPRESSION: Exam limited by artifact secondary to body habitus and patient's arms being placed along their sides. Advanced colonic wall thickening consistent with colitis, likely pseudomemranous colitis given distr ibution of disease. Gastric and small bowel distention, without focal transition, most consistent with reactive ileus. Mo derate volume ascites. Extensive ill defined areas of decreased attenuation throughout the liver, difficult to discern as ar eas of fatty infiltration vs mass lesions given extensive artifact mentioned above. Thank you for allowing us to participate in the care of your patient. Dictated and Authenticated by: Donovan Thacker MD 09/14/2018 3:15 AM Central Time ([place] & [place]) FINAL REPORT ABDOMEN CT WITH CONTRAST PELVIC CT WITH CONTRAST: HISTORY: Abdominal distension. COMPARISON: 04/10/2018. FINDINGS: This report is in agreement with the preliminary report by [facility]. Consolidation of both lung bases may be due to atelectasis. There is irregular appearance of the liver with hypoattenuation and hyperatt enuation which may represent hepatic steatosis. Underlying hepatic mass cannot be excluded. There i s free fluid in the abdomen and pelvis. There is significant colonic wall thickening compatible with a diffuse colitis. Pseudomembranous colitis should be considered given distribution. POS: [facility]
--- NOTE | 2018-09-14 08:35 | RAD ---
PRELIMINARY REPORT/[facility]/EMERGENT[facility] AFTER-HOURS PROCEDURE XR Abdomen, 1 View EXAM DATE/TIME: 09/14/2018 1:43 AM CLINICAL HISTORY: 53 years old, female; Abnormal findings; Mass, lump, or swelling; Other parts of digestive tract; Jenny or surgery; Surgery date: Post-operative (0-2 days); Additional info: R/O acute abd ileus TECHNIQUE: Frontal supine view of the abdomen/pelvis. COMPARISON: No relevant prior studies available. FINDINGS: Gastrointestinal tract: Gastric and small bowel distention with air. Some distal gas is noted. Bones/joints: Unremarkable for age. IMPRESSION: Ileus vs distal obstruction. Thank you for allowing us to participate in the care of your patient. Dictated and Authenticated by: Donovan Thacker MD 09/14/2018 2:31 AM Central Time ([place] & [place]) FINAL REPORT ABDOMEN 1 VIEW: Date: 09/13/18 HISTORY: 53-year-old female with history of follow-up ileus, small bowel obstruction, abdominal pain, vomiting blood. COMPARISON: 09/13/18. FINDINGS: There is greater gaseous distention of the stomach than seen on the prior 09/13/18 study. There is so me persistent gas and minimally dilated small bowel loops with possibilities including that of small bowel obstruction versus ileus. No significant colonic gas seen on today's study. IMPRESSION: Fairly marked gaseous distention of the stomach, as well as small bowel, which is mildly dilated, wit hout significant colonic gas. Findings again are consistent with that of ileus versus partial small b owel obstruction. Gas and fecal material which was present within the colon at the time of the prior 09/13/18 study is no longer evident. POS: [facility]
[2018-09-14 08:49] LABS: Actual Bicarbonate (HCO3a) 18.7 mEq/L (22-28); Base Excess (BEa) -4.5 mEq/L (-2.0 to +3.0); CO2 Tension 27.6 mmHg (35.0-45.0); Calcium, Ionized 1.02 mmol/L (1.12-1.30); Carboxyhemoglobin (COHb) 1.4 gm% (0.0-3.0); Hemoglobin (Hb) 8.9 g/dL (12.0-16.0); O2 Tension (PaO2) 94.1 mmHg (80.0-100.0); Potassium - ABG Lab 4.08 mmol/L (3.70-5.30); Puncture Site ALINE; pH, Arterial 7.45 (7.35-7.45)
[2018-09-14] MEDS: Pantoprazole 80 MG, Admixture Fee 1 EACH in Sodium Chloride 0.9% 100 ML IVP SCH ×2 (08:57→19:23)
[2018-09-14] MEDS ORDERED: Sodium Chloride 0.9% 1,000 ML IV SCH (10:08)
[2018-09-14 11:06] LABS: Hemoglobin 8.6 g/dL (12.0-16.0)
[2018-09-14] MEDS ORDERED: Magnesium Sulfate 3 GM in Sodium Chloride 0.9% 100 ML IVPB SCH (12:00)
--- NOTE | 2018-09-14 12:07 | PRG ---
DATE OF SERVICE: 09/14/2018 SUBJECTIVE: Ms. Osorio had a fairly uneventful night in the ICU following her EGD last night. She has remained tachycardic, but blood pressures have been good. There has been no further hematemesis. No bowel movements at all. Certainly, no melena. Abdomen is distended. She remains intubated and sedated on high amounts of Precedex. OBJECTIVE: VITAL SIGNS: Pulse 108, blood pressure 127/65, 97% oxygen saturation on ventilator, and temperature is 98.0. GENERAL: Critically ill 53-year-old woman, sedated and intubated. HEART: Regular rate and rhythm. LUNGS: Bilateral vent sounds. ABDOMEN: Moderate distention with ascites. Dull to percussion. Bowel movements are present. Nontender to palpation. EXTREMITIES: No peripheral edema. LABORATORY DATA: Hemoglobin stabilized after 4 units of transfusion, it went up from 5.8 to 9.4 and is stable this morning, WBC is 10.3, platelets 110. INR down to 1.7. Sodium 137, potassium 3.8, BUN only 9, creatinine 0.50, and lactic acid came down to 5.1. IMAGING STUDIES: CT of the abdomen and pelvis demonstrated diffuse edema of the colon, which was read as consistent with colitis, possibly pseudomembranous colitis. There is gastric and small bowel distention without transition point consistent with reactive ileus. There is moderate ascites. The liver is heterogeneous in appearance and enlarged to 22 cm. Pancreas appears normal. ASSESSMENT AND PLAN: 1. Upper gastrointestinal bleeding, secondary to small gastric ulcer with visible vessel just beyond the GE junction, now status post successful cautery with 10-Italian bipolar probe last night, with good hemostasis achieved. 2. Hemorrhagic shock, stabilized. 3. Acute blood loss anemia, improved after transfusion. The patient has no evidence of rebleeding overnight since her procedure. This will be a high-risk lesion for rebleeding, so I would still recommend IV PPI for 72-hour interval, followed by transition to oral PPI twice daily thereafter. Once the patient is extubated and able to take p.o., she could have clear liquids today. 4. Cirrhosis secondary to alcohol. 5. Ascites. 6. Ongoing alcohol abuse. Note, the patient has a mild elevation in AST, but otherwise LFTs are essentially unremarkable. She is coagulopathic, however, and she does have moderate ascites. She is on antibiotics. Currently, I would recommend ceftriaxone. We will not plan for any paracentesis at this time. She had a diagnostic paracentesis a few months ago on a prior presentation. 7. Diffuse colon thickening on CT scan. The patient has not had any melena or really any diarrhea at all. The radiologist felt that the findings might represent pseudomembranous colitis. Once she does have a bowel movement, we would recommend sending the stool for C. difficile to rule this out. 8. GI will continue to follow along. I think the octreotide can be discontinued, as there was no evidence of esophageal or gastric varices. Please call anytime with question or concerns. Job ID: [id number]
[2018-09-14] MEDS ORDERED: Iopamidol 370 76% 100 ML VIAL ONE (13:27)
--- NOTE | 2018-09-14 14:16 | PDOC.PN ---
- Subjective Encounter Start Date: 09/14/18 Encounter Start Time: 11:15 Subjective: pt intubated - Objective Resuscitation Status - Order Detail: 09/13/18 22:22 Resuscitation Status Routine Resuscitation Status: FULL: Full Resuscitation Vital Signs & Weight: Vital Signs (12 hours) Temp Pulse Resp BP Pulse Ox 09/14/18 13:01 99 127/65 09/14/18 12:00 99.8 F H 20 09/14/18 10:06 143/67 H 09/14/18 10:00 19 09/14/18 08:36 108 H 127/65 09/14/18 08:00 18 100 09/14/18 06:00 26 H 09/14/18 05:00 98 F 09/14/18 03:52 18 09/14/18 03:28 93 09/14/18 02:18 130 H 126/59 L Weight Weight 188 lb 4.396 oz Most Recent Monitor Data Heart Rate from ECG 104 NIBP 127/65 NIBP BP-Mean 85 Respiration from ECG 20 SpO2 95 I&O: 09/13/18 09/14/18 09/15/18 06:59 06:59 06:59 Intake Total 697.4 Output Total 275 225 Balance 422.4 -225 Result Diagrams: 09/14/18 Unknown 09/14/18 Unknown Additional Labs: Accuchecks 09/14/18 09/14/18 11:44 00:27 POC Glucose 78 107 Phys Exam - Physical Examination Neck: no nodes, no JVD, supple, full ROM Respiratory: no wheezing, no rales, no rhonchi, wheezing present, clear to auscultation bilateral Cardiovascular: RRR, no significant murmur, no rub, gallop, irregular Gastrointestinal: soft, non-tender, no distention, positive bowel sounds Dx/Plan (1) Gastric ulcer with hemorrhage Code(s): K25.4 - CHRONIC OR UNSPECIFIED GASTRIC ULCER WITH HEMORRHAGE Status: Acute (2) Alcohol dependence Code(s): F10.20 - ALCOHOL DEPENDENCE, UNCOMPLICATED Status: Acute (3) Chronic anemia Code(s): D64.9 - ANEMIA, UNSPECIFIED Status: Acute (4) Aspiration pneumonia Code(s): J69.0 - PNEUMONITIS DUE TO INHALATION OF FOOD AND VOMIT Status: Acute - Plan s/p EGD which indicated gastric bleed hh stable -: pt on ativan IVP prn/ currently sedated -: will continue abx for now * . Review of Systems - Review of Systems Other: unable to obtain - Medications/Allergies Allergies/Adverse Reactions: Allergies Allergy/AdvReac Type Severity Reaction Status Date / Time No Known Allergies Allergy Verified 04/11/18 01:00 Medications: Current Medications Pantoprazole Sodium 80 mg/Miscellaneous Medication 1 each/ Sodium Chloride 100 mls @ 10 mls/hr IVP INF STEPH Last Admin: 09/14/18 08:57 Dose: 100 mls Dexmedetomidine HCl 200 mcg/ (Sodium Chloride) 50 mls @ 0 mls/hr IVPB INF STEPH; Protocol Last Admin: 09/14/18 10:42 Dose: 50 mls Metronidazole 500 mg/ Device 100 mls @ 100 mls/hr IVPB Q8HR STEPH Ciprofloxacin/Dextrose 400 mg/ (Device) 200 mls @ 200 mls/hr IVPB 1100,2300 STEPH Last Admin: 09/14/18 12:37 Dose: 200 mls Sodium Chloride (Normal Saline 0.9%) 1,000 mls @ 0 mls/hr IV .Q0M STEPH Lorazepam (Ativan) 2 mg SLOW IVP Q15MIN PRN PRN Reason: Anxiety/Agitation Ondansetron HCl (Zofran) 4 mg IVP Q6H PRN PRN Reason: Nausea/Vomiting Last Admin: 09/14/18 02:19 Dose: 4 mg Propofol (Diprivan) 1,000 mg IV INF PRN; Protocol PRN Reason: TO ACHIEVE GOAL RASS Stop: 10/14/18 06:30 Last Admin: 09/14/18 11:30 Dose: 1,000 mg Propofol (Diprivan Bolus) 20 mg IV Q5MIN PRN PRN Reason: BREAKTHROUGH AGITATION Stop: 10/14/18 06:30
[2018-09-14] MEDS: metroNIDAZOLE 500 MG in Premix Bag 1 BAG IVPB SCH ×2 (14:34→22:14)
--- NOTE | 2018-09-14 16:32 | CON ---
DATE OF CONSULTATION: 09/14/2018 SERVICE: Pulmonary Medicine. REASON FOR CONSULT: Respiratory failure. HISTORY OF PRESENT ILLNESS: The patient is a 53-year-old white female with past medical history significant for alcohol abuse. She came to the hospital yesterday because of abdominal discomfort, but was ultimately sent home. She drank a little bit of alcohol when she got home and she returned to the hospital. She was having bright red blood coming from her mouth. She cannot provide me any additional elements of the history. She is currently intubated under the influence of some sedation. PAST MEDICAL HISTORY: 1. Alcohol abuse. 2. Cirrhosis. 3. Hypertension. 4. History of peptic ulcer disease. 5. Chronic back pain. PAST SURGICAL HISTORY: 1. EGD. 2. Left ankle surgery. 3. Ablation of the endometrium. 4. Breast augmentation. 5. Tubal ligation. SOCIAL HISTORY: She drinks alcohol very heavily. She also smokes. There are no reports of illicit drugs. FAMILY HISTORY: Noncontributory. ALLERGIES: NO KNOWN DRUG ALLERGIES. MEDICATIONS: List of her inpatient medications was reviewed. Multiple small updates were made. REVIEW OF SYSTEMS: The patient cannot provide review of systems because she is currently intubated and sedated. PHYSICAL EXAMINATION: VITAL SIGNS: Afebrile, pulse 108, blood pressure 127/65, respirations 18, and saturation 97% on room air. GENERAL: The patient is awake, alert, and in no apparent distress. LUNGS: Excellent air entry. There is a prolonged expiratory phase. A little bit of wheezing is present. No rhonchi or crackles are appreciated. HEART: Normal rate and regular. ABDOMEN: Soft, nontender, nondistended. Bowel sounds are positive. MUSCULOSKELETAL: No cyanosis or clubbing. There is no pitting in the bilateral lower extremities. NEUROLOGIC: Grossly nonfocal. She is moving all four extremities and breathing comfortably on the ventilator. LABORATORY DATA: WBC 10.3. Hemoglobin is 9.4 and has been stable since she got her blood products. Platelets 110,000. INR 1.7, pH 7.45, pCO2 of 27, pO2 of 94 on 50% FiO2 and a PEEP of 5 at that time. Creatinine 0.5, BUN 9. Basic metabolic profile is otherwise unremarkable. Lactate is downtrending to 5.1, but as previously noted, her pH now falls within the normal limits. AST is 100, total bilirubin 1.2, magnesium 1.2. IMAGING DATA: 1. Abdominal x-ray demonstrates findings consistent with ileus versus distal obstruction. 2. CT of the abdomen and pelvis demonstrates limited exam secondary to artifact, but there is advanced colonic wall thickening. Moderate volume ascites is also noted. ASSESSMENT: 1. Acute blood loss anemia, stable. 2. Peptic ulcer disease. 3. Cirrhosis. 4. Colitis. 5. Ascites. DISCUSSION AND PLAN: We will replace the patient's magnesium. We will check her phosphorus with tomorrow morning's laboratories. I will put her on a spontaneous breathing trial. If she meets criteria, extubation will be considered. We will watch very closely for signs of withdrawal. On 50 mcg of propofol, the patient is wide awake and thrashing around and still requiring additional p.r.n. medications. As such, we will try to make this transition a little smoother by giving her Precedex drip during this transition. CRITICAL CARE TIME: 30 minutes. Job ID: [id number]
[2018-09-14 16:34] LABS: Hemoglobin 8.6 g/dL (12.0-16.0)
[2018-09-15 05:21] LABS: Phosphorus 2.6 mg/dL (2.3-4.7)
[2018-09-15 05:24] LABS: Anion Gap 8 mmol/L (10-20); BUN (Urea Nitrogen) 18 mg/dL (9.8-20.1); Calc. Creatinine Clearance 141 mL/min (70-130); Calcium 7.7 mg/dL (7.8-10.44); Carbon Dioxide 24 mmol/L (22-29); Chloride 110 mmol/L (98-107); Estimated GFR-MDRD Greater than 90; Glucose 107 mg/dL (70-105); Magnesium 1.9 mg/dL (1.6-2.6); Potassium 4.2 mmol/L (3.5-5.1); Sodium 138 mmol/L (136-145)
[2018-09-15 06:04] LABS: Hemoglobin 8.6 g/dL (12.0-16.0); Mean Corpuscular HGB CONC 32.1 g/dL (32.0-36.0); Mean Corpuscular Hemoglobin 27.5 pg (27.0-31.0); Mean Corpuscular Volume 85.8 fL (78.0-98.0); Mean Platelet Volume 8.4 fL (7.4-10.4); Platelet Count 87 thou/uL (130-400); RBC Distribution Width 17.6 % (11.5-14.5); Red Blood Cell (RBC) Count 3.11 mill/uL (4.20-5.40); White Blood Cell (WBC) Count 9.5 thou/uL (4.8-10.8)
[2018-09-15 06:05] LABS: Anisocytosis SLIGHT = 6-15 cells (100X) (0-5/hpf); Band 2 % (5-11); Eosinophils 2 % (0-10); Hypochromia SLIGHT = 6-15 cells (100X) (0-5/hpf); Lymphocytes 25 % (21-51); MDiff Complete? YES; Monocytes 12 % (0-10); Neutrophil 59 % (42-75); PLT Morphology Comment Appears Decreased; Polychromasia SLIGHT = 2-3 cells (100X) (0-2/hpf)
[2018-09-15] MEDS: metroNIDAZOLE 500 MG in Premix Bag 1 BAG IVPB SCH ×3 (06:25→22:55)
[2018-09-15] MEDS: Pantoprazole 80 MG, Admixture Fee 1 EACH in Sodium Chloride 0.9% 100 ML IVP SCH (06:27)
[2018-09-15] MEDS ORDERED: Pantoprazole 40 MG VIAL IVP SCH (10:00)
--- NOTE | 2018-09-15 11:13 | PRG ---
DATE OF SERVICE: 09/15/2018 SERVICE: Pulmonary Medicine INTERVAL HISTORY: The patient is doing really well from respiratory standpoint. She denies any current chest pain, fevers, or chills. She is on 2 L nasal cannula. She is breathing comfortably. She is coughing up a little bit of sputum. Otherwise, there has been no interval change to her condition. Her Precedex drip is down to 0.2. OBJECTIVE: VITAL SIGNS: Afebrile, pulse 98, blood pressure 96/63, respirations 18, saturation 97% on 2 L nasal cannula. GENERAL: The patient is awake, alert, in no apparent distress. LUNGS: Excellent air entry. There is no prolonged expiratory phase or wheezing present. Rhonchi are there, they clear with cough. HEART: Normal rate, regular. ABDOMEN: Soft, nontender, and nondistended. Bowel sounds are positive. MUSCULOSKELETAL: No cyanosis or clubbing. There is no pitting in the bilateral lower extremities. NEUROLOGIC: Grossly nonfocal. LABORATORY DATA: WBC 9.5; hemoglobin 8.6 and roughly stable; platelets 87,000, downtrending. Basic metabolic profile is essentially unremarkable/stable. Magnesium 1.9, phosphorus 2.6. ASSESSMENT: 1. Acute blood loss anemia, stable. 2. Peptic ulcer disease, status post cauterization of visible vessel. 3. Cirrhosis. 4. Alcohol abuse. 5. Colitis. 6. Ascites. DISCUSSION AND PLAN: We will continue her on empiric antibiotics and other supportive care. I will start the patient on an Ativan taper. We will see if we can wean the Precedex through the day, and if we can, she can be transitioned to the medical unit. She indicates that she is going to abandon alcohol altogether. Pulmonary Critical Care will continue to follow along if she remains in this location, but when she goes to the floor, she will have no further requirements per my opinion and I will sign off. Certainly, if she has any exacerbation of respiratory issues or develops delirium tremens, I would request a phone call. Job ID: [id number]
--- NOTE | 2018-09-15 11:26 | PRG ---
DATE OF SERVICE: 09/15/2018 TYPE OF REPORT: GI INPATIENT DAILY PROGRESS NOTE SUBJECTIVE: Ms. Osorio was extubated yesterday evening. She had a fairly uneventful night. There has been no diarrhea, no further vomiting. She has been tolerating some liquids and Jell-O. She denies any abdominal pain. Her only complaint to me is some sore throat. OBJECTIVE: VITAL SIGNS: Pulse 100, blood pressure 96/63, 98% oxygen saturation on 2L nasal cannula, and temperature is 98.7 degrees Farenheit. GENERAL: Awake, alert, and oriented to person and place. HEART: Regular rate and rhythm. LUNGS: Clear to auscultation bilaterally. ABDOMEN: Distended with ascites, dull to percussion. Bowel sounds present. Nontender to palpation. EXTREMITIES: No peripheral edema. LABORATORY DATA: Sodium 138, potassium 4.2, BUN 18, creatinine is 0.62, magnesium is 1.9, phosphorus 2.6, and calcium 7.7. Hemoglobin is stable at 8.6, WBC is 9.5, and platelets 87. ASSESSMENT AND PLAN: 1. Upper gastrointestinal bleeding secondary to ulcer with visible vessel just beyond the GE junction, status post esophagogastroduodenoscopy with successful cautery of lesion early on 09/14/2018. 2. Acute blood loss anemia, stabilized. There is no evidence of any further significant gastrointestinal bleeding since her endoscopy two nights ago. I would stick with the plan for IV PPI for 72 hours, which would be through the end of tomorrow. Following this, transitioned to oral PPI twice daily. I think her diet can be advanced at this point to low sodium diet. 3. Alcoholic cirrhosis. The patient is going to need to find a way to quit drinking. 4. Ascites. Low concern for spontaneous bacterial peritonitis at this time. She had diagnostic paracentesis several months ago. She is afebrile. 5. Depending on clinical course over the next couple of days, she may be need to be started on some low-dose diuretics. Job ID: [id number]
[2018-09-15] MEDS: Lorazepam 1 MG TAB PO SCH ×4 (11:34→23:29)
--- NOTE | 2018-09-15 12:51 | PDOC.PN ---
- Subjective Encounter Start Date: 09/15/18 Encounter Start Time: 11:55 Subjective: pt up in bed extubated - Objective Resuscitation Status - Order Detail: 09/13/18 22:22 Resuscitation Status Routine Resuscitation Status: FULL: Full Resuscitation Vital Signs & Weight: Vital Signs (12 hours) Temp BP Pulse Ox 09/15/18 08:43 98 09/15/18 08:00 98.9 F 107/67 100 09/15/18 04:00 98.7 F Weight Admit Weight 188 lb Weight 190 lb 14.725 oz Most Recent Monitor Data Heart Rate from ECG 86 NIBP 96/55 NIBP BP-Mean 68 Respiration from ECG 16 SpO2 96 I&O: 09/14/18 09/15/18 09/16/18 06:59 06:59 06:59 Intake Total 697.4 1875 720 Output Total 275 797 Balance 422.4 1078 720 Result Diagrams: 09/15/18 04:50 09/15/18 04:50 Additional Labs: Accuchecks 09/14/18 11:44 POC Glucose TNP Phys Exam - Physical Examination Neck: no nodes, no JVD, supple, full ROM Respiratory: no wheezing, no rales, no rhonchi, wheezing present, clear to auscultation bilateral Cardiovascular: RRR, no significant murmur, no rub, gallop, irregular Gastrointestinal: soft, non-tender, no distention, positive bowel sounds Musculoskeletal: no edema, pulses present, edema present Dx/Plan (1) Gastric ulcer with hemorrhage Code(s): K25.4 - CHRONIC OR UNSPECIFIED GASTRIC ULCER WITH HEMORRHAGE Status: Acute (2) Alcohol dependence Code(s): F10.20 - ALCOHOL DEPENDENCE, UNCOMPLICATED Status: Acute (3) Chronic anemia Code(s): D64.9 - ANEMIA, UNSPECIFIED Status: Acute (4) Aspiration pneumonia Code(s): J69.0 - PNEUMONITIS DUE TO INHALATION OF FOOD AND VOMIT Status: Acute - Plan pt extubated, -: will conitnue ppi drip for now -: diet advanced per gi -: continue to monitor for alcohol withdrawal * . Review of Systems - Review of Systems Respiratory: negative: Cough, Dry, Shortness of Breath, Hemoptysis, SOB with Excertion, Pleuritic Pain, Sputum, Wheezing Cardiovascular: negative: chest pain, palpitations, orthopnea, paroxysmal nocturnal dyspnea, edema, light headedness, other Gastrointestinal: negative: Nausea, Vomiting, Abdominal Pain, Diarrhea, Constipation, Melena, Hematochezia, Other - Medications/Allergies Allergies/Adverse Reactions: Allergies Allergy/AdvReac Type Severity Reaction Status Date / Time No Known Allergies Allergy Verified 04/11/18 01:00 Medications: Current Medications Folic Acid (Folvite) 1 mg PO DAILY [facility] Metronidazole 500 mg/ Device 100 mls @ 100 mls/hr IVPB Q8HR [facility] Last Admin: 09/15/18 06:25 Dose: 100 mls Ciprofloxacin/Dextrose 400 mg/ (Device) 200 mls @ 200 mls/hr IVPB 1100,2300 [facility] Last Admin: 09/15/18 11:34 Dose: 200 mls Lactulose (Lactulose) 30 gm PO BID [facility] Lorazepam (Ativan) 2 mg SLOW IVP Q15MIN PRN PRN Reason: Anxiety/Agitation Lorazepam (Ativan) 2 mg PO Q4H [facility] Stop: 09/16/18 01:46 Last Admin: 09/15/18 11:34 Dose: 2 mg Lorazepam (Ativan) 2 mg PO TID [facility] Stop: 09/16/18 21:01 Lorazepam (Ativan) 1 mg PO TID [facility] Stop: 09/18/18 09:01 Ondansetron HCl (Zofran) 4 mg IVP Q6H PRN PRN Reason: Nausea/Vomiting Last Admin: 09/14/18 02:19 Dose: 4 mg Pantoprazole Sodium (Protonix) 40 mg IVP Q12HR [facility] Propranolol HCl (Inderal) 10 mg PO BID [facility] Thiamine HCl (Thiamine) 100 mg PO DAILY [facility]
[2018-09-15] MEDS: Pantoprazole 40 MG VIAL IVP SCH (22:45)
[2018-09-15] MEDS: Propranolol 10 MG TAB PO SCH (23:31)
[2018-09-16] MEDS: Lorazepam 1 MG TAB PO SCH ×4 (03:00→22:22)
[2018-09-16] MEDS: metroNIDAZOLE 500 MG in Premix Bag 1 BAG IVPB SCH ×3 (05:14→22:22)
[2018-09-16 07:51] LABS: Hemoglobin 8.8 g/dL (12.0-16.0)
[2018-09-16] MEDS: Folic Acid 1 MG TAB PO SCH (08:48)
[2018-09-16] MEDS: Pantoprazole 40 MG VIAL IVP SCH ×2 (08:48→22:22)
--- NOTE | 2018-09-16 09:18 | PDOC.PN ---
- Subjective Encounter Start Date: 09/16/18 Encounter Start Time: 09:00 Subjective: pt up in bed appears drowsy, but arousable - Objective Resuscitation Status - Order Detail: 09/13/18 22:22 Resuscitation Status Routine Resuscitation Status: FULL: Full Resuscitation Vital Signs & Weight: Vital Signs (12 hours) Temp Pulse Resp BP BP BP Pulse Ox 09/16/18 08:00 98.4 F 92 18 142/93 H 142/93 H 92 L 09/16/18 04:00 98.6 F 84 12 133/83 96 09/16/18 00:00 98.3 F 87 20 104/61 89 L Weight Admit Weight 188 lb Weight 190 lb 14.725 oz Most Recent Monitor Data Heart Rate from ECG 86 NIBP 96/55 NIBP BP-Mean 68 Respiration from ECG 16 SpO2 96 I&O: 09/15/18 09/16/18 09/17/18 06:59 06:59 06:59 Intake Total 1875 1409 Output Total 797 Balance 1078 1409 Result Diagrams: 09/16/18 07:12 09/15/18 04:50 Phys Exam - Physical Examination Neck: no nodes, no JVD, supple, full ROM Respiratory: no wheezing, no rales, no rhonchi, wheezing present, clear to auscultation bilateral Cardiovascular: RRR, no significant murmur, no rub, gallop, irregular Gastrointestinal: soft, non-tender, no distention, positive bowel sounds Dx/Plan (1) Gastric ulcer with hemorrhage Code(s): K25.4 - CHRONIC OR UNSPECIFIED GASTRIC ULCER WITH HEMORRHAGE Status: Acute (2) Alcohol dependence Code(s): F10.20 - ALCOHOL DEPENDENCE, UNCOMPLICATED Status: Acute (3) Chronic anemia Code(s): D64.9 - ANEMIA, UNSPECIFIED Status: Acute (4) Aspiration pneumonia Code(s): J69.0 - PNEUMONITIS DUE TO INHALATION OF FOOD AND VOMIT Status: Acute - Plan iv protonix drip changed to iv bid -: diet has been advanced per gi -: hh stable * . Review of Systems - Review of Systems Respiratory: negative: Cough, Dry, Shortness of Breath, Hemoptysis, SOB with Excertion, Pleuritic Pain, Sputum, Wheezing Cardiovascular: negative: chest pain, palpitations, orthopnea, paroxysmal nocturnal dyspnea, edema, light headedness, other - Medications/Allergies Allergies/Adverse Reactions: Allergies Allergy/AdvReac Type Severity Reaction Status Date / Time No Known Allergies Allergy Verified 04/11/18 01:00 Medications: Current Medications Folic Acid (Folvite) 1 mg PO DAILY [facility] Last Admin: 09/16/18 08:48 Dose: 1 mg Metronidazole 500 mg/ Device 100 mls @ 100 mls/hr IVPB Q8HR [facility] Last Admin: 09/16/18 05:14 Dose: 100 mls Ciprofloxacin/Dextrose 400 mg/ (Device) 200 mls @ 200 mls/hr IVPB 1100,2300 [facility] Last Admin: 09/16/18 00:45 Dose: 200 mls Lactulose (Lactulose) 30 gm PO BID [facility] Last Admin: 09/16/18 08:48 Dose: 30 gm Lorazepam (Ativan) 2 mg SLOW IVP Q15MIN PRN PRN Reason: Anxiety/Agitation Lorazepam (Ativan) 2 mg PO TID [facility] Stop: 09/16/18 21:01 Last Admin: 09/16/18 08:48 Dose: 2 mg Lorazepam (Ativan) 1 mg PO TID [facility] Stop: 09/18/18 09:01 Ondansetron HCl (Zofran) 4 mg IVP Q6H PRN PRN Reason: Nausea/Vomiting Last Admin: 09/14/18 02:19 Dose: 4 mg Pantoprazole Sodium (Protonix) 40 mg IVP Q12HR [facility] Last Admin: 09/16/18 08:48 Dose: 40 mg Propranolol HCl (Inderal) 10 mg PO BID [facility] Last Admin: 09/15/18 23:31 Dose: 10 mg Thiamine HCl (Thiamine) 100 mg PO DAILY [facility] Last Admin: 09/16/18 08:48 Dose: 100 mg
[2018-09-16] MEDS: Propranolol 10 MG TAB PO SCH ×2 (09:32→22:22)
--- NOTE | 2018-09-16 12:38 | PRG ---
DATE OF SERVICE: 09/16/2018 TYPE OF REPORT: GI inpatient daily progress note SUBJECTIVE: Mrs. Osorio had an uneventful night. She is feeling a little bit better. She still has some mild abdominal discomfort. She does not have much of an appetite, did not eat much breakfast, but she is tolerating her diet. She had a single melanotic appearing stool earlier today. Hemoglobin and vital signs are stable OBJECTIVE: VITAL SIGNS: Temperature 98.4, blood pressure 142/93, pulse 92, and 92% oxygen saturation on room air. GENERAL: No acute distress, sitting up in bed comfortably. She is drowsy, but answers questions appropriately. HEART: Regular rate and rhythm. LUNGS: Clear to auscultation bilaterally. ABDOMEN: Mild distention, soft and nontender to palpation. EXTREMITIES: No peripheral edema. LABORATORY STUDIES: Hemoglobin stable at 8.8, hematocrit 27.3. ASSESSMENT AND PLAN: 1. Upper gastrointestinal bleeding secondary to ulcer with visible vessel just beyond the GE junction, status post esophagogastroduodenoscopy with successful cautery of the lesion early on 09/14/2018. 2. Acute blood loss anemia, stabilized. Stick with a plan for IV PPI for 72 hours, which would be through the end of today. Tomorrow, I think she could be transitioned to oral PPI twice daily. Continue with low-sodium diet. 3. Alcoholic cirrhosis. I again reinforced to the patient, she is going to need to find a way to completely quit drinking alcohol. Job ID: [id number]
[2018-09-17] MEDS: metroNIDAZOLE 500 MG in Premix Bag 1 BAG IVPB SCH (05:42)
[2018-09-17] MEDS: Folic Acid 1 MG TAB PO SCH (07:47)
[2018-09-17] MEDS: Pantoprazole 40 MG VIAL IVP SCH ×2 (07:47→20:39)
[2018-09-17] MEDS: Propranolol 10 MG TAB PO SCH ×2 (08:26→20:39)
[2018-09-17] MEDS ORDERED: Lorazepam 0.5 MG TAB PO SCH (09:00)
[2018-09-17 10:24] LABS: Anion Gap 10 mmol/L (10-20); BUN (Urea Nitrogen) 5 mg/dL (9.8-20.1); Calc. Creatinine Clearance 165 mL/min (70-130); Calcium 8.2 mg/dL (7.8-10.44); Carbon Dioxide 20 mmol/L (22-29); Chloride 109 mmol/L (98-107); Estimated GFR-MDRD Greater than 90; Glucose 122 mg/dL (70-105); Potassium 3.3 mmol/L (3.5-5.1); Sodium 136 mmol/L (136-145)
[2018-09-17 11:33] LABS: Eosinophils 2 % (0-10); Hemoglobin 9.3 g/dL (12.0-16.0); Hypochromia SLIGHT = 6-15 cells (100X) (0-5/hpf); Lymphocytes 26 % (21-51); MDiff Complete? YES; Mean Corpuscular HGB CONC 30.9 g/dL (32.0-36.0); Mean Corpuscular Volume 87.2 fL (78.0-98.0); Mean Platelet Volume 7.8 fL (7.4-10.4); Monocytes 11 % (0-10); Neutrophil 60 % (42-75); PLT Morphology Comment Appears Decreased; Platelet Count 124 thou/uL (130-400); Polychromasia SLIGHT = 2-3 cells (100X) (0-2/hpf); RBC Distribution Width 18.6 % (11.5-14.5); Reactive Lymphocytes 1 % (0-10); Red Blood Cell (RBC) Count 3.46 mill/uL (4.20-5.40); Small Platelets SLIGHT; White Blood Cell (WBC) Count 7.4 thou/uL (4.8-10.8)
--- NOTE | 2018-09-17 12:36 | PDOC.PN ---
- Subjective Encounter Start Date: 09/17/18 Encounter Start Time: 10:30 Subjective: pt up in bed having diarrhea - Objective Resuscitation Status - Order Detail: 09/13/18 22:22 Resuscitation Status Routine Resuscitation Status: FULL: Full Resuscitation Vital Signs & Weight: Vital Signs (12 hours) Temp Pulse Resp BP BP Pulse Ox 09/17/18 12:00 98.3 F 75 20 115/75 09/17/18 08:00 98.4 F 83 18 139/82 96 09/17/18 04:48 98.0 F 83 16 133/80 96 09/17/18 01:06 97.7 F 81 16 152/68 H 96 Weight Admit Weight 188 lb Weight 190 lb 14.725 oz Most Recent Monitor Data Heart Rate from ECG 86 NIBP 96/55 NIBP BP-Mean 68 Respiration from ECG 16 SpO2 96 I&O: 09/16/18 09/17/18 09/18/18 06:59 06:59 06:59 Intake Total 1409 1870 Balance 1409 1870 Result Diagrams: 09/17/18 09:47 09/17/18 09:47 Phys Exam - Physical Examination Neck: no nodes, no JVD, supple, full ROM Respiratory: no wheezing, no rales, no rhonchi, wheezing present, clear to auscultation bilateral Cardiovascular: RRR, no significant murmur, no rub, gallop, irregular Gastrointestinal: soft, non-tender, no distention, positive bowel sounds Dx/Plan (1) Gastric ulcer with hemorrhage Code(s): K25.4 - CHRONIC OR UNSPECIFIED GASTRIC ULCER WITH HEMORRHAGE Status: Acute (2) Alcohol dependence Code(s): F10.20 - ALCOHOL DEPENDENCE, UNCOMPLICATED Status: Acute (3) Chronic anemia Code(s): D64.9 - ANEMIA, UNSPECIFIED Status: Acute (4) Aspiration pneumonia Code(s): J69.0 - PNEUMONITIS DUE TO INHALATION OF FOOD AND VOMIT Status: Acute - Plan will decrease dose of ativan to bid -: will discontinue lactulose pt is having diarrhea -: pt states she is not eating much * . Review of Systems - Review of Systems Respiratory: negative: Cough, Dry, Shortness of Breath, Hemoptysis, SOB with Excertion, Pleuritic Pain, Sputum, Wheezing Cardiovascular: negative: chest pain, palpitations, orthopnea, paroxysmal nocturnal dyspnea, edema, light headedness, other Gastrointestinal: negative: Nausea, Vomiting, Abdominal Pain, Diarrhea, Constipation, Melena, Hematochezia, Other Genitourinary: negative: Dysuria, Frequency, Incontinence, Hematuria, Retention , Other - Medications/Allergies Allergies/Adverse Reactions: Allergies Allergy/AdvReac Type Severity Reaction Status Date / Time No Known Allergies Allergy Verified 04/11/18 01:00 Medications: Current Medications Folic Acid (Folvite) 1 mg PO DAILY [facility] Last Admin: 09/17/18 07:47 Dose: 1 mg Lactulose (Lactulose) 30 gm PO BID [facility] Last Admin: 09/17/18 07:47 Dose: 30 gm Lorazepam (Ativan) 2 mg SLOW IVP Q15MIN PRN PRN Reason: Anxiety/Agitation Lorazepam (Ativan) 1 mg PO BID [facility] Stop: 09/18/18 21:01 Ondansetron HCl (Zofran) 4 mg IVP Q6H PRN PRN Reason: Nausea/Vomiting Last Admin: 09/14/18 02:19 Dose: 4 mg Pantoprazole Sodium (Protonix) 40 mg IVP Q12HR [facility] Last Admin: 09/17/18 07:47 Dose: 40 mg Propranolol HCl (Inderal) 10 mg PO BID [facility] Last Admin: 09/17/18 08:26 Dose: 10 mg Thiamine HCl (Thiamine) 100 mg PO DAILY [facility] Last Admin: 09/17/18 07:47 Dose: 100 mg
--- NOTE | 2018-09-17 15:07 | PRG ---
DATE OF SERVICE: 09/17/2018 SUBJECTIVE: Ms. Osorio is without complaints today. She had an incontinence of stools, waiting for the nurse. She has had no further hematemesis. She still vomits a bit. PRESENT MEDICATIONS: 1. Cipro. 2. Folic acid. 3. Lactulose is on hold. 4. Ativan, which had been stopped today. 5. Metronidazole has been discontinued. 6. Zofran. 7. Protonix 40 IV q.12. 8. Propranolol 10 b.i.d. 9. Thiamine. PHYSICAL EXAMINATION: VITAL SIGNS: Temperature is 98, pulse 75, and blood pressure 115/75. GENERAL: The patient is resting in bed. She is somewhat disheveled. She is oriented to person and place. HEENT: She is nonicteric. LUNGS: Clear. ABDOMEN: Nontender. LABORATORY DATA: Today, sodium 136, potassium 3.3, chloride 109, bicarbonate 20, BUN and creatinine are 5 and 0.5, calcium was 8.2. Phosphorus was 2.6 on the 8th, and magnesium 1.9 on the 8th. INR was 1.7 on 09/14. White count 7.4, hemoglobin 9.3, and platelet count 124. ASSESSMENT: 1. Alcohol abuse. The patient seems to have not been withdrawing anymore. 2. Hematemesis, resolved. [place] related to an ulcer at the GE junction. This was treated with cautery. 3. Severe erosive gastritis. 4. Severe erosive distal esophagitis. No varices. 5. Nutritional deficiencies. RECOMMENDATIONS: 1. Agree with stopping lactulose. 2. We will replace electrolytes as needed. 3. Consider switch to p.o. PPIs tomorrow. 4. Continue thiamine, multivitamin, and folate. Job ID: [id number]
[2018-09-17 16:05] VITALS: BMI 32.8
[2018-09-17] MEDS: Lorazepam 1 MG TAB PO SCH (20:38)
[2018-09-18 06:00] LABS: Anion Gap 7 mmol/L (10-20); BUN (Urea Nitrogen) 5 mg/dL (9.8-20.1); Calc. Creatinine Clearance 185 mL/min (70-130); Calcium 8.1 mg/dL (7.8-10.44); Carbon Dioxide 21 mmol/L (22-29); Chloride 110 mmol/L (98-107); Estimated GFR-MDRD Greater than 90; Glucose 90 mg/dL (70-105); Potassium 3.4 mmol/L (3.5-5.1); Sodium 135 mmol/L (136-145)
[2018-09-18 06:45] LABS: Anisocytosis SLIGHT = 6-15 cells (100X) (0-5/hpf); Band 2 % (5-11); Eosinophils 1 % (0-10); Hemoglobin 8.7 g/dL (12.0-16.0); Hypochromia SLIGHT = 6-15 cells (100X) (0-5/hpf); Lymphocytes 23 % (21-51); MDiff Complete? YES; Mean Corpuscular HGB CONC 31.6 g/dL (32.0-36.0); Mean Corpuscular Hemoglobin 27.7 pg (27.0-31.0); Mean Corpuscular Volume 87.8 fL (78.0-98.0); Mean Platelet Volume 7.9 fL (7.4-10.4); Monocytes 12 % (0-10); Neutrophil 62 % (42-75); PLT Morphology Comment Appears Decreased; Platelet Count 114 thou/uL (130-400); RBC Distribution Width 18.5 % (11.5-14.5); Red Blood Cell (RBC) Count 3.13 mill/uL (4.20-5.40); White Blood Cell (WBC) Count 8.7 thou/uL (4.8-10.8)
[2018-09-18] MEDS: Folic Acid 1 MG TAB PO SCH (08:42)
[2018-09-18] MEDS: Pantoprazole 40 MG VIAL IVP SCH (08:43)
[2018-09-18] MEDS: Lorazepam 1 MG TAB PO SCH (08:43)
[2018-09-18] MEDS ORDERED: Multivitamin W/ Minerals 1 TAB PO SCH (09:00)
[2018-09-18] MEDS: Propranolol 10 MG TAB PO SCH (09:18)
[2018-09-18] MEDS ORDERED: Potassium Chloride 20 MEQ TAB PO SCH (12:30)
[2018-09-18 14:28] VITALS: BP 132/84; TEMP 98.4
--- NOTE | 2018-09-19 05:58 | DIS ---
DATE OF ADMISSION: 09/13/2018 DATE OF DISCHARGE: 09/18/2018 DISCHARGE DIAGNOSES: As of the following; 1. Acute respiratory failure secondary to hypoxia. 2. Hematemesis. 3. Alcohol dependence. 4. Severe erosive gastritis. 5. Severe erosive distal esophagitis. HOSPITAL COURSE: The patient is a 53-year-old female, who initially presented to the hospital with hematemesis. The patient at this time was also found to be hypotensive and continued to have hematemesis. At this time, she was very hypotensive and symptomatic. At this time, she was given 4 units of PRBCs, and GI was consulted. She underwent an endoscopy and was intubated in the ER. The endoscopy indicated visible vessel at the GE junction at 40 cm from the incisors, successfully cauterized with 10-[place] bipolar probe. Hemostasis was achieved. Also, the patient was found to have severe erosive gastritis and severe erosive esophagitis. No esophageal or gastric varices were noted. The patient at this time was treated with IV antibiotics and was monitored in the intensive care unit. Initially, she was on octreotide and a Protonix drip, which was then transitioned to IV Protonix twice a day and then was transferred to oral twice a day. The patient was then extubated and was transferred out of the ICU. She continued to improve. Her intake is gradually improving. Her H and H have been stable. Recommended the patient to stay an additional day given that she did have some tremors while she was in the hospital and emphasized the fact that she should not be drinking any alcohol given her significant erosive gastritis and esophagitis. The patient stated that she does have prescribed Ativan at home, which is prescribed by her primary care doctor and would rather just go home. She stated that she would stay away from alcohol. I have emphasized to her multiple times in regard to drinking alcohol and worsening of her symptoms. The patient understands. She will be discharged home. She will follow up with GI as an outpatient and also with primary care. MEDICATIONS: Her home medications are as of the following; 1. She is on carbamazepine 200 mg twice a day. 2. Thiamine 100 mg daily. 3. Propranolol 10 mg b.i.d. 4. She is on magnesium oxide 400 mg daily. 5. Gabapentin 200 mg at bedtime. 6. Folic acid 1 mg p.o. daily. 7. Protonix, I am going to prescribe her 40 mg p.o. b.i.d. 8. Tylenol with Codeine 2 tablets p.o. q.4 hours p.r.n. DISPOSITION: Again, the patient will be discharged home. She will follow up with the primary care doctor and also GI. PHYSICAL EXAMINATION: VITAL SIGNS: As of following; temperature 98.1, pulse 74, respirations 20, oxygen saturation 98% room air, and blood pressure 133/82. GENERAL: She is awake, alert, and oriented x3. She does not appear in any distress. CV: S1 and S2 present. No murmurs, rubs, or gallops. LUNGS: Clear to auscultation. No rhonchi or wheezes noted. ABDOMEN: Soft and nontender. Bowel sounds are present x2. EXTREMITIES: No edema. Again, I did emphasize that I wanted her to stay an additional day, however, she really wanted to go home and stated that she understands the consequences if she would go home and drink and stated that she would not do so and will follow up with her primary care doctor. Job ID: [id number]
== END 2018-09-18 14:43 | disposition home or self-care (01) | DRG 377 ==
LOC: ERS 20:59 → SDC/OP 23:30 → CCU 23:31 → T4-B 09-15 12:40
PROVIDERS: ADMIT Internal Medicine; ATTEND Internal Medicine
PROC: 30233N1 Transfusion of Nonautologous Red Blood Cells into Peripheral Vein, Percutaneous Approach (ICD-10-PCS; 2018-09-13)
PROC: 30233R1 Transfusion of Nonautologous Platelets into Peripheral Vein, Percutaneous Approach (ICD-10-PCS; 2018-09-13)
PROC: 0W3P8ZZ Control Bleeding in Gastrointestinal Tract, Via Natural or Artificial Opening Endoscopic (ICD-10-PCS; principal; 2018-09-14)
PROC: 5A1935Z Respiratory Ventilation, Less than 24 Consecutive Hours (ICD-10-PCS; 2018-09-14)
DX: K25.4 Chronic or unspecified gastric ulcer with hemorrhage (principal); R57.8 Other shock; J69.0 Pneumonitis due to inhalation of food and vomit; J96.01 Acute respiratory failure with hypoxia; K22.10 Ulcer of esophagus without bleeding; D62 Acute posthemorrhagic anemia; D68.8 Other specified coagulation defects; F10.239 Alcohol dependence with withdrawal, unspecified; K70.31 Alcoholic cirrhosis of liver with ascites; K21.0 Gastro-esophageal reflux disease with esophagitis; K52.9 Noninfective gastroenteritis and colitis, unspecified; I10 Essential (primary) hypertension; F17.210 Nicotine dependence, cigarettes, uncomplicated; Z87.19 Personal history of other diseases of the digestive system; Z87.11 Personal history of peptic ulcer disease
CPT/HCPCS: 36415; 36416; 36430; 74018; 74177; 80048; 82805; 83605; 83735; 84100; 85014; 85018; 85025; 85384; 85610; 85730; 86850; 86900; 86901; 87324; 87449; 94002; 96360; 96365; 96366; 96368; 96374; 96375; C9113; J0696; J0744; J2060; J2250; J2270; J2354; J2405; J2543; J2704; J3010; J3475; J7050; P9016; P9035

== ENCOUNTER 2018-10-15 14:56 | Inpatient (IN) | payer OTHER, SELFPAY ==
[2018-10-15] MEDS ORDERED: Lorazepam 2 MG/ML VIAL ONE (15:36)
[2018-10-15] MEDS ORDERED: Ondansetron PF 4 MG/2 ML Vial ONE (15:36)
[2018-10-15 15:39] LABS: #Basophils 0.2 thou/uL (0.0-0.2); #Eosinphils 0.2 thou/uL (0.0-0.7); #Lymphocytes 4.9 thou/uL (1.20-3.40); #Monocytes 1.1 thou/uL (0.11-0.59); #Neutrophils 3.5 thou/uL (1.40-6.50); %Eosinophils 2.2 % (0.0-10.0); %Lymphocytes 49.9 % (21.0-51.0); %Monocytes 10.8 % (0.0-10.0); %Neutrophils 35.2 % (42.0-75.0); Mean Corpuscular HGB CONC 31.8 g/dL (32.0-36.0); Mean Corpuscular Hemoglobin 26.1 pg (27.0-31.0); Mean Corpuscular Volume 82.1 fL (78.0-98.0); Mean Platelet Volume 7.5 fL (7.4-10.4); Platelet Count 264 thou/uL (130-400); RBC Distribution Width 18.5 % (11.5-14.5); Red Blood Cell (RBC) Count 4.21 mill/uL (4.20-5.40); White Blood Cell (WBC) Count 9.8 thou/uL (4.8-10.8)
[2018-10-15] MEDS ORDERED: Multivitamins, Adult 10 ML, Thiamine HCl 100 MG, Folic Acid 1 MG in Dextrose 5 %-0.45 %... IV ONE (16:00)
[2018-10-15 16:01] LABS: ALT (SGPT) 22 U/L (8-55); AST (SGOT) 74 U/L (5-34); Albumin 3.4 g/dL (3.5-5.0); Alcohol 346 mg/dL (Less than 10); Alkaline Phosphatase 163 U/L (40-150); Anion Gap 15 mmol/L (10-20); BUN (Urea Nitrogen) Less than 4 mg/dL (9.8-20.1); Bilirubin, Total 0.8 mg/dL (0.2-1.2); Calc. Creatinine Clearance 0 mL/min (70-130); Calcium 8.9 mg/dL (7.8-10.44); Carbon Dioxide 21 mmol/L (22-29); Chloride 106 mmol/L (98-107); Estimated GFR-MDRD Greater than 90; Globulin 5.5 g/dL (2.4-3.5); Glucose 105 mg/dL (70-105); Lipase 83 U/L (8-78); Potassium 4.1 mmol/L (3.5-5.1); Protein, Total 8.9 g/dL (6.0-8.3); Sodium 138 mmol/L (136-145)
[2018-10-15 16:11] LABS: Bilirubin Negative (Negative); Blood, Urine Negative (Negative); Clarity CLEAR (Clear); Glucose, Urine (Dipstick) Negative (Negative); Leukocyte Small (Negative); Nitrite Negative (Negative); Protein, Urine (Dipstick) Negative (Neg-Trace); Specific Gravity, Urine 1.003 (1.002-1.036); Urobilinogen 0.2 mg/dL (0.2-1.0); pH, Urine 6.5 (5.0-9.0)
[2018-10-15] MEDS ORDERED: Pantoprazole 40 MG VIAL ONE (16:12)
--- NOTE | 2018-10-15 16:21 | CT ---
CT OF THE BRAIN WITHOUT CONTRAST: Date: 10/15/18 COMPARISON: 06/07/18. HISTORY: Abdominal pain for 13 years. Fall yesterday with head injury. TECHNIQUE: Multiple contiguous axial images were obtained in a CT of the brain without contrast. FINDINGS: The brain is normal in morphology and attenuation without focal lesions or confluent areas of infarct ion. There is no evidence of hydrocephalus, intracranial hemorrhage, or extra-axial fluid collection. The calvarium and overlying soft tissues are unremarkable. The visualized paranasal sinuses and masto id air cells are well aerated. IMPRESSION: No evidence of acute intracranial abnormality. POS: [facility]
[2018-10-15 16:26] LABS: Bacteria/HPF None Seen HPF (None Seen); Hyaline Casts/LPF 0-3 HYALINE CAST LPF (0-3 Hyaline); RBC/HPF 0-3 HPF (0-3); Squamous Epithelial None Seen HPF (0-3); WBC/HPF 0-3 HPF (0-3)
--- NOTE | 2018-10-15 16:32 | CT ---
CT CERVICAL SPINE WITHOUT CONTRAST: Date: 10/15/18 INDICATION: History of trauma and neck pain after fall. COMPARISON: Prior exam dated 09/11/14. FINDINGS: No acute fracture or subluxation is evident. There is multilevel disc degenerative and facet osteoart hritic change. Osseous central canal and prevertebral soft tissues appear preserved. Craniocervical j unction appears within normal limits. The lung apices are clear. Visualized aspects of the prevertebr al soft tissues appear within normal limits. IMPRESSION: No acute osseous abnormality. POS: [facility]
[2018-10-15] MEDS ORDERED: Senokot S 8.6-50 MG TAB PO PRN (20:41)
[2018-10-15] MEDS ORDERED: Acetaminophen 650 MG Suppository PR PRN (20:41)
[2018-10-15] MEDS ORDERED: Diazepam 5 MG TAB PO PRN (20:48)
[2018-10-15] MEDS: Propranolol 10 MG TAB PO SCH (22:39)
[2018-10-16] MEDS: Pantoprazole 40 MG VIAL IVP SCH ×3 (00:17→21:27)
--- NOTE | 2018-10-16 01:26 | HP ---
PRIMARY CARE PHYSICIAN: [facility]. CHIEF COMPLAINT: Vomiting of blood and intoxicated. HISTORY OF PRESENT ILLNESS: This is a 53-year-old white female, who was admitted just last month for severe erosive gastritis and distal esophagitis with GI hemorrhage and some hypotension. She presented again to the emergency room tonight reporting abdominal pain and vomiting since last night, including some blood in the vomit, though not in a massive amounts like last time. In the ER waiting room, she was noted to be intoxicated. She went to the bathroom and had a fall in the bathroom. She does have history of some seizures. They were uncertain if she might have had a seizure, because she was not responding when she fell down in the bathroom. They eventually had to go and get her out, and she started responding when they got in there. She had CT head and neck in the ER to clear her spine after the fall and that was all fine. The patient reports that she has been having abdominal pain for the last day. The vomiting started last night and it got worse, so she came into the ER. She has not had any hematemesis in the emergency room. PAST MEDICAL HISTORY: Most medical history is actually taken from the chart due to patient's significantly intoxicated status. She is not able to answer much more than very simple questions and could not give exact details about her history. 1. Alcohol abuse. 2. Liver cirrhosis. 3. Hypertension. 4. Chronic back pain. 5. Stomach ulcers. 6. Recurrent GI bleeds. 7. Fibromyalgia. 8. Migraines. 9. History of polysubstance abuse. PAST SURGICAL HISTORY: 1. Orthopedic surgery of left ankle. 2. Endometrial ablation. 3. Breast augmentation. 4. Tubal ligation. 5. Bladder suspension. SOCIAL HISTORY: The patient currently lives at home with her family. Drinks at least 6-pack on a daily basis. Denies tobacco or drug use. FAMILY HISTORY: Positive for coronary artery disease. ALLERGIES: THE PATIENT HAS PREVIOUSLY LISTED ALLERGY TO IODINE AND NOTHING CURRENTLY LISTED. CURRENT MEDICATIONS: The patient is unable to state her current medications. However, her most recent med list from her previous hospitalization included: 1. Tylenol No.3. 2. Tegretol 200 mg twice a day. 3. Folic acid 1 mg daily. 4. Gabapentin 300 mg at night. 5. Lactulose 20 g daily. 6. Magnesium oxide 400 mg daily. 7. Multivitamin daily. 8. Protonix 40 mg twice a day. 9. Propranolol 10 mg twice a day. 10. Thiamine 100 mg daily. REVIEW OF SYSTEMS: Uncertain accuracy of patient's review of system currently due to her significant intoxication. However, she denies all complaints except for her abdominal pain, nausea and vomiting. CONSTITUTIONAL: No fevers, no chills, no weight changes. EYES: She has chronic poor vision due to cataracts. ENT: She has had some congestion and drainage in her nose on and off. No sore throat. CARDIOVASCULAR: No chest pain or palpitations. PULMONARY: No coughing, wheezing or shortness of breath. GASTROINTESTINAL: See HPI. No diarrhea or constipation. GENITOURINARY: No dysuria or hematuria. MUSCULOSKELETAL: No muscle aches or joint pains. SKIN: No rashes or lesions she has noted. NEUROLOGIC: No numbness, tingling, or focal weakness. She cannot remember what happened in the emergency room if she might have had a seizure or not. PHYSICAL EXAMINATION: VITAL SIGNS: Blood pressure 134/82, pulse 130, respirations 18, temperature 98.4, and O2 saturation 96% on room air. GENERAL: This is a well-developed, well-nourished female, who is snoring. When I got in there, she was arousable but never really opened her eyes very wide and had to be constantly stimulated to get information from her. She appeared in no acute distress from pain, though she did say it was still hurting when I asked her. HEENT: Eyes; pupils equal, round, and reactive to light. She does have a significant cataract in her left eye. Oropharynx clear. No blood. No lesions or exudate. NECK: Supple. No lymphadenopathy. No thyroid nodules or enlargement. C-collar was present when I examined the patient, however, Dr. Ramírez has looked at the CT scan and is removing the C-collar after clearing her neck. HEART: Regular rhythm. Mildly tachycardic on my exam. LUNGS: Clear to auscultation bilaterally. No wheezes, crackles, or rhonchi. ABDOMEN: Soft, tender to palpation diffusely with minimal guarding. No rebound tenderness. No hepatosplenomegaly or other masses palpable. EXTREMITIES: No clubbing, cyanosis, or edema. No obvious deformity or injury. SKIN: No rashes or lesions noted. NEUROLOGIC: She is able to move all extremities equally. No facial droop. No seizure activity visualized. LABORATORY DATA: CBC grossly normal. Complete metabolic panel notable for carbon dioxide of 21, BUN of less than 4, creatinine of 0.58, AST of 74, alkaline phosphatase of 163, total serum protein of 8.9, albumin of 3.4, lipase of 83. Initial troponin was negative. Urinalysis was negative for infection. Toxicology screen showed a plasma alcohol of 346. Her hemoglobin was 11.0, which has actually increased from her last hemoglobin at discharge on last month of 8.7. ASSESSMENT: 1. Abdominal pain with nausea and vomiting, likely recurrent alcoholic gastritis similar to patient's other presentations. 2. Gastrointestinal bleed. We will start Protonix 40 mg twice a day IV. 3. Hematemesis. She had a small amount of blood in her vomit. Per patient, she has not had any since she got here and she is now hemodynamically unstable like she was last time and she has no significant anemia at this time. I would suspect that she has again developed gastritis or esophagitis, but is not as hemorrhagic last time. We will need to watch her hemoglobin closely overnight, make sure it does not drop and I will consult GI to see her in the morning. Initially, her hemoglobin remained stable. She may not require an endoscopy this visit. 4. Acute alcohol intoxication. We will watch the patient closely to make sure she does not fall again and will replete her with a banana bag. The patient also has a history of significant withdrawal, so we will give her p.r.n. benzodiazepines per ASE protocol. 5. History of cirrhosis. We will resume her lactulose and propranolol. 6. Deep venous thrombosis prophylaxis. The patient is on SCDs while she is in bed. Due to her bleeding, we will hold off on any Lovenox. 7. Code status. The patient was too drunk to have a good discussion about this. For now, she is a full resuscitation. She was unable to name a medical decision maker due to her intoxication at this time. Job ID: [id number]
[2018-10-16 05:03] VITALS: BMI 27.1
[2018-10-16 07:13] LABS: Hemoglobin 8.5 g/dL (12.0-16.0); Mean Corpuscular HGB CONC 31.8 g/dL (32.0-36.0); Mean Corpuscular Hemoglobin 25.9 pg (27.0-31.0); Mean Corpuscular Volume 81.5 fL (78.0-98.0); Platelet Count 202 thou/uL (130-400); Red Blood Cell (RBC) Count 3.26 mill/uL (4.20-5.40); White Blood Cell (WBC) Count 8.5 thou/uL (4.8-10.8)
[2018-10-16 07:19] LABS: Anion Gap 11 mmol/L (10-20); BUN (Urea Nitrogen) 7 mg/dL (9.8-20.1); Calc. Creatinine Clearance 141 mL/min (70-130); Calcium 8.2 mg/dL (7.8-10.44); Carbon Dioxide 22 mmol/L (22-29); Chloride 107 mmol/L (98-107); Estimated GFR-MDRD Greater than 90; Glucose 94 mg/dL (70-105); Potassium 3.8 mmol/L (3.5-5.1); Sodium 136 mmol/L (136-145)
[2018-10-16] MEDS: carBAMazepine 200 MG TAB PO SCH ×2 (08:34→17:24)
[2018-10-16] MEDS: Folic Acid 1 MG TAB PO SCH (08:34)
[2018-10-16] MEDS: Magnesium Oxide 400 MG TAB PO SCH (08:34)
[2018-10-16] MEDS: Propranolol 10 MG TAB PO SCH ×2 (08:35→21:27)
[2018-10-16] MEDS: Multivitamin W/ Minerals 1 TAB PO SCH (08:35)
[2018-10-16] MEDS: Diazepam 5 MG TAB PO PRN ×4 (08:36→21:27)
[2018-10-16] MEDS ORDERED: Multivitamin W/ Minerals 1 TAB PO SCH (09:00)
[2018-10-16 09:26] LABS: Eosinophils 1 % (0-10); Hypochromia SLIGHT = 6-15 cells (100X) (0-5/hpf); Lymphocytes 32 % (21-51); MDiff Complete? YES; Monocytes 12 % (0-10); Neutrophil 53 % (42-75); Platelet Morphology Comment Appears Adequate; Polychromasia SLIGHT = 2-3 cells (100X) (0-2/hpf); Reactive Lymphocytes 1 % (0-10); Target Cells SLIGHT = 2-5 cells (100X) (0-1/hpf)
--- NOTE | 2018-10-16 09:39 | PDOC.PN ---
- Subjective Encounter Start Date: 10/16/18 Encounter Start Time: 11:00 Subjective: Patient reports decreased pain overnight. No more nausea or -: vomiting this morning. Was very shakey earlier but resolved with a -: valium. - Objective Resuscitation Status - Order Detail: 10/15/18 20:26 Resuscitation Status Routine Resuscitation Status: FULL: Full Resuscitation Discussed with: patient Additional comments: MAR Reviewed: Yes Vital Signs & Weight: Vital Signs (12 hours) Temp Pulse Resp BP Pulse Ox 10/16/18 08:00 99.0 F 110 H 20 143/88 H 98 10/16/18 07:47 97 10/16/18 04:00 98.0 F 108 H 20 114/69 95 10/16/18 01:10 96 10/16/18 00:20 98.8 F 105 H 19 119/75 95 10/15/18 23:15 98.6 F 106 H 18 126/82 96 Weight Weight 163 lb I&O: 10/15/18 10/16/18 10/17/18 06:59 06:59 06:59 Intake Total 730 Output Total 700 Balance 30 Result Diagrams: 10/16/18 12:15 10/16/18 06:45 Phys Exam - Physical Examination Constitutional: NAD HEENT: moist MMs Respiratory: no wheezing, no rales, no rhonchi Cardiovascular: RRR, no significant murmur Gastrointestinal: soft, no distention, positive bowel sounds TTP KAITLIN without guarding Musculoskeletal: no edema Neurological: non-focal, moves all 4 limbs minor tremor Psychiatric: normal affect, A&O x 3 Dx/Plan (1) Abdominal pain Code(s): R10.9 - UNSPECIFIED ABDOMINAL PAIN Status: Acute Qualifiers: Abdominal location: generalized Qualified Code(s): R10.84 - Generalized abdominal pain Comment: Likely recurrent alcoholic gastritis, SBP in differential though on exam abdomen not distended with fluid (2) GI bleed Code(s): K92.2 - GASTROINTESTINAL HEMORRHAGE, UNSPECIFIED Status: Acute Comment: Suspect recurrent errosive gastritis and esophagitis, Hgb dropped 2 points overnight, though it is not more consistent with her previous H/H from last month so I suspect the initial was concentrated. Will recheck H/H in afternoon. No further hematemesis in hospital. (3) Alcohol dependence Code(s): F10.20 - ALCOHOL DEPENDENCE, UNCOMPLICATED Status: Acute Comment: Patient susceptible to withdrawl syndrome, on ASE protocol, only mildly tachycardic and mild HT at this time. Continue to monitor closely and dose Valium as needed. (4) Cirrhosis Code(s): K74.60 - UNSPECIFIED CIRRHOSIS OF LIVER Status: Chronic Comment: Resumed Lactulose and Propranolol. - Plan cont current plan of care, DVT proph w/SCDs * . - Discharge Day Encounter end time: 11:15 Pulmonology Consult: Meds - Medications MAR Reviewed: Yes Medications: Current Medications Acetaminophen (Tylenol) 650 mg PO Q4H PRN PRN Reason: Headache/Fever/Mild Pain (1-3) Acetaminophen (Tylenol) 650 mg AR Q4H PRN PRN Reason: Headache/Fever/Mild Pain (1-3) Carbamazepine (Tegretol) 200 mg PO BID-[facility] Last Admin: 10/16/18 08:34 Dose: 200 mg Diazepam (Valium) 5 mg PO Q4H PRN PRN Reason: FOR ASE 10 OR GREATER Last Admin: 10/16/18 08:36 Dose: 5 mg Folic Acid (Folvite) 1 mg PO DAILY [facility] Last Admin: 10/16/18 08:34 Dose: 1 mg Iron/Minerals/Multivitamins (Theragran M) 1 tab PO DAILY [facility] Last Admin: 10/16/18 08:35 Dose: 1 tab Lactulose (Lactulose) 20 gm PO DAILY [facility] Last Admin: 10/16/18 08:34 Dose: 20 gm Magnesium Oxide (Magnesium Oxide) 400 mg PO DAILY [facility] Last Admin: 10/16/18 08:34 Dose: 400 mg Ondansetron HCl (Zofran Odt) 4 mg PO Q6H PRN PRN Reason: Nausea/Vomiting Ondansetron HCl (Zofran) 4 mg IVP Q6H PRN PRN Reason: Nausea/Vomiting Pantoprazole Sodium (Protonix) 40 mg IVP Q12HR [facility] Last Admin: 10/16/18 08:35 Dose: 40 mg Propranolol HCl (Inderal) 10 mg PO BID [facility] Last Admin: 10/16/18 08:35 Dose: 10 mg Senna/Docusate Sodium (Senokot S) 2 tab PO BID PRN PRN Reason: Constipation Sodium Chloride (Flush - Normal Saline) 10 ml IV Q12HR [facility] Last Admin: 10/16/18 08:35 Dose: 10 ml Thiamine HCl (Thiamine) 100 mg PO DAILY [facility] Last Admin: 10/16/18 08:35 Dose: 100 mg - Allergies Allergies/Adverse Reactions: Allergies Allergy/AdvReac Type Severity Reaction Status Date / Time No Known Allergies Allergy Verified 04/11/18 01:00
[2018-10-16] MEDS: Ondansetron PF 4 MG/2 ML Vial IVP PRN (11:18)
[2018-10-16] MEDS: Acetaminophen 325 MG TAB PO PRN (11:18)
[2018-10-16 12:26] LABS: Hemoglobin 8.5 g/dL (12.0-16.0)
--- NOTE | 2018-10-16 21:21 | CON ---
DATE OF CONSULTATION: 10/16/2018 REQUESTING PHYSICIAN: Dr. Rao. REASON FOR CONSULTATION: Hematemesis. HISTORY OF PRESENT ILLNESS: Aicha Osorio is a 53-year-old woman, a patient of my GI colleague, Dr. Maciel Stewart. She has a history of ongoing chronic alcohol abuse and it appears early alcoholic cirrhosis based on thrombocytopenia. She has had multiple hospital admissions through the years including 1 admission a month ago with hematemesis. She has had a Snehal-Crews tear diagnosed a couple of years ago. When she presented last month, she was actually bleeding quite significantly and presented in hemorrhagic shock. Upper endoscopy at that time demonstrated severe erosive esophagitis and erosive gastritis. She had a small ulceration with a visible vessel near the GE junction, which I cauterized at that time. She did very well afterward with no evidence of recurrent bleeding and was able to be discharged. She says she has continued on Protonix since then. She did well for about 2 weeks abstaining from alcohol, but now for the past 3 weeks since then she has been drinking heavily again at least 6 to 12 beers per day. She presented to the Emergency Department last night with nausea and vomiting. She had several episodes of emesis yesterday, which she characterizes as looking like red Leonardo-Aid, but these were small volume. Since admission overnight, she had 1 further episode of emesis, which was a very small amount of reddish tinged clear emesis. She is not having any abdominal pain. She has had no melena. Her BUN is only 7. She has remained hemodynamically stable. Initial hemoglobin was 11.0 and this declined to 8.5 this morning with IV fluids, and is stable at 8.5 this afternoon. This is about what it was last month during hospital admission. She is on IV PPI and n.p.o. today. REVIEW OF SYSTEMS: Full review of systems including constitutional, head, eyes, ears, nose, throat, GI, , cardiovascular, respiratory, musculoskeletal, neurologic systems is negative except as noted in the HPI. PAST MEDICAL HISTORY: 1. Chronic ongoing alcohol abuse. 2. Likely alcoholic cirrhosis. 3. Hypertension. 4. Snehal-Crews tear with active bleeding in October 2016. 5. Severe erosive gastritis and erosive esophagitis in September 2018. 6. Chronic back pain. 7. Prior polysubstance abuse. PAST SURGICAL HISTORY: 1. Ankle surgery. 2. Endometrial ablation. 3. Breast augmentation. 4. Tubal ligation. FAMILY HISTORY: Negative for GI malignancy. SOCIAL HISTORY: She continues to abuse alcohol up to 12-pack of beer per day. No recent drug use. ALLERGIES: IODINE. OUTPATIENT MEDICATIONS: 1. Tylenol No. 3 p.r.n. 2. Protonix 40 mg twice daily. 3. Tegretol 200 mg twice daily. 4. Folic acid 1 mg daily. 5. Gabapentin 300 mg at night. 6. Lactulose 20 g daily. 7. Magnesium oxide 400 mg daily. 8. Multivitamin daily. 9. Propranolol 10 mg twice daily. 10. Thiamine 100 mg daily. PHYSICAL EXAMINATION: VITAL SIGNS: Temperature 99.0, pulse 96, blood pressure 130/90, 97% oxygen saturation on room air. GENERAL: A 53-year-old woman lying in bed comfortably, in no acute distress. SKIN: No jaundice. No rashes were palpable. EYES: No scleral icterus. Extraocular movements intact. ENT: Mucous membranes are moist. No oral lesions. LYMPH: No submandibular or supraclavicular lymphadenopathy. THYROID: Nontender to palpation. HEART: Regular rate and rhythm. LUNGS: Clear to auscultation bilaterally. ABDOMEN: Nondistended. Bowel sounds are present. Soft. Some tenderness to palpation in the epigastrium, but no guarding or rebound tenderness. EXTREMITIES: No peripheral edema. VESSELS: Radial pulses 2+ bilaterally. NEURO: Cranial nerves 2 through 12 intact bilaterally. No focal deficits. LABORATORY STUDIES: Hemoglobin 8.5, stable from this morning; WBC 8.5; platelets 202. INR was 1.7 on admission last month. Sodium 136, potassium 3.8, BUN 7, creatinine 0.54, total bilirubin 0.8, alkaline phosphatase 163, AST 74, ALT 22. Urinalysis; small leukocyte esterase, no wbc's. Plasma alcohol level was 346. ASSESSMENT AND PLAN: 1. Hematemesis, small volume. 2. Erosive gastritis. 3. Erosive esophagitis. 4. Chronic anemia, stable. 5. Alcohol intoxication. 6. Alcohol cirrhosis. The patient has had recurrent hematemesis in the context of ongoing alcohol abuse and known severe erosive gastritis and esophagitis. I told her that we really cannot expect her to have much healing of the mucosa if she is going to continue to abuse alcohol like this. Notably, she has remained hemodynamically stable with a stable H and H. She does not have any esophageal or gastric varices. I do not see any strong indication to repeat upper endoscopy at this point, unless hematemesis is recurrent over the next 24 hours or she has significant decline in hemoglobin. For now, keep her n.p.o. and continue the PPI drip. She is going to have to withdrawal from alcohol again. I again expressed the importance of complete abstinence from alcohol going forward. Thank you for the consultation. GI will continue to follow along. Please call back anytime with questions or concerns. Job ID: [id number]
[2018-10-17] MEDS: Ondansetron PF 4 MG/2 ML Vial IVP PRN (01:04)
[2018-10-17] MEDS: Diazepam 5 MG TAB PO PRN ×3 (03:37→15:48)
[2018-10-17 06:16] LABS: #Basophils 0.1 thou/uL (0.0-0.2); #Eosinphils 0.5 thou/uL (0.0-0.7); #Lymphocytes 3.6 thou/uL (1.20-3.40); #Monocytes 1.3 thou/uL (0.11-0.59); #Neutrophils 4.3 thou/uL (1.40-6.50); %Basophils 1.3 % (0.0-1.0); %Eosinophils 4.9 % (0.0-10.0); %Neutrophils 43.8 % (42.0-75.0); Hemoglobin 7.9 g/dL (12.0-16.0); Mean Corpuscular HGB CONC 31.6 g/dL (32.0-36.0); Mean Corpuscular Hemoglobin 25.9 pg (27.0-31.0); Mean Corpuscular Volume 81.8 fL (78.0-98.0); Mean Platelet Volume 7.3 fL (7.4-10.4); Platelet Count 187 thou/uL (130-400); RBC Distribution Width 17.9 % (11.5-14.5); Red Blood Cell (RBC) Count 3.06 mill/uL (4.20-5.40); White Blood Cell (WBC) Count 9.8 thou/uL (4.8-10.8)
[2018-10-17 06:36] LABS: Anion Gap 10 mmol/L (10-20); BUN (Urea Nitrogen) 13 mg/dL (9.8-20.1); Calc. Creatinine Clearance 136 mL/min (70-130); Calcium 8.6 mg/dL (7.8-10.44); Carbon Dioxide 22 mmol/L (22-29); Chloride 108 mmol/L (98-107); Estimated GFR-MDRD Greater than 90; Glucose 92 mg/dL (70-105); Potassium 3.7 mmol/L (3.5-5.1); Sodium 136 mmol/L (136-145)
--- NOTE | 2018-10-17 08:04 | PDOC.PN ---
- Subjective Encounter Start Date: 10/17/18 Encounter Start Time: 10:15 Subjective: Patient with some vomiting of small amount black material yesterday , none -: today. Taking clear liquids. Pain resolved, just a little bloated. - Objective Resuscitation Status - Order Detail: 10/15/18 20:26 Resuscitation Status Routine Resuscitation Status: FULL: Full Resuscitation Discussed with: patient Additional comments: MAR Reviewed: Yes Vital Signs & Weight: Vital Signs (12 hours) Temp Pulse Resp BP Pulse Ox 10/17/18 07:25 98 10/17/18 04:00 98.5 F 93 17 118/89 97 10/17/18 00:00 98.4 F 115 H 18 126/85 100 Weight Weight 165 lb 4.8 oz I&O: 10/16/18 10/17/18 10/18/18 06:59 06:59 06:59 Intake Total 730 440 Output Total 700 3600 Balance 30 -3160 Result Diagrams: 10/17/18 05:56 10/17/18 05:56 Phys Exam - Physical Examination Constitutional: NAD HEENT: moist MMs Respiratory: no wheezing, no rales, no rhonchi Cardiovascular: RRR, no significant murmur Gastrointestinal: soft, positive bowel sounds mild TTP KAITLIN Musculoskeletal: no edema Neurological: non-focal, moves all 4 limbs Psychiatric: normal affect, A&O x 3 Dx/Plan (1) Abdominal pain Code(s): R10.9 - UNSPECIFIED ABDOMINAL PAIN Status: Acute Qualifiers: Abdominal location: generalized Qualified Code(s): R10.84 - Generalized abdominal pain Comment: Likely recurrent alcoholic gastritis, SBP in differential though on exam abdomen not distended with fluid (2) GI bleed Code(s): K92.2 - GASTROINTESTINAL HEMORRHAGE, UNSPECIFIED Status: Acute Comment: Suspect recurrent errosive gastritis and esophagitis. Hgb with initial 2 point drop, slow leak since. Hemodynamically stable. May need transfusion if drops below 7. (3) Alcohol dependence Code(s): F10.20 - ALCOHOL DEPENDENCE, UNCOMPLICATED Status: Acute Comment: Patient susceptible to withdrawl syndrome, on ASE protocol, only mildly tachycardic and mild HT at this time. Continue to monitor closely and dose Valium as needed. (4) Cirrhosis Code(s): K74.60 - UNSPECIFIED CIRRHOSIS OF LIVER Status: Chronic Comment: Resumed Lactulose and Propranolol. - Plan cont current plan of care, PT/OT, DVT proph w/SCDs * . - Discharge Day Encounter end time: 10:45
[2018-10-17] MEDS: carBAMazepine 200 MG TAB PO SCH ×2 (09:04→15:47)
[2018-10-17] MEDS: Folic Acid 1 MG TAB PO SCH (09:04)
[2018-10-17] MEDS: Magnesium Oxide 400 MG TAB PO SCH (09:05)
[2018-10-17] MEDS: Pantoprazole 40 MG VIAL IVP SCH ×2 (09:06→20:31)
[2018-10-17] MEDS: Multivitamin W/ Minerals 1 TAB PO SCH (09:06)
[2018-10-17] MEDS: Propranolol 10 MG TAB PO SCH ×2 (09:06→20:32)
[2018-10-17] MEDS ORDERED: cefTRIAXone\\ROCEPHIN 1 GM in Sodium Chloride 0.9% 100 ML IVPB SCH (15:00)
--- NOTE | 2018-10-17 15:14 | PRG ---
DATE OF SERVICE: 10/17/2018 SUBJECTIVE: Ms. Osorio states last night she had a tarry stool. She has not had one in over 12 hours. OBJECTIVE: VITAL SIGNS: Temperature is 98.7, pulse is 84, blood pressure is 113/86. GENERAL: She is resting comfortably in bed. She denies being jittery, feeling like she is withdrawing. She has no nausea or vomiting. She wants to start liquids. ABDOMEN: She denies any abdominal pain. EXTREMITIES: No clubbing, cyanosis, or edema. LABORATORY STUDIES: White count is 9.8; hemoglobin is 7.9, it was 8.5 at noon yesterday, 8.5 at 6 a.m. yesterday, and 11 on October 15. Baseline hemoglobin in early September was 8 to 9. Platelet count is 187. INR 1.7 on the . Today, sodium 136, potassium 3.7, chloride 108, bicarb 22, BUN and creatinine were 13 and 0.56. ASSESSMENT: 1. Gastrointestinal bleed. Started after multiple episodes of vomiting the day before admission. She has had multiple admissions in the past with Snehal-Crews tears and severe medic injury in the stomach. It seems that she has stopped bleeding at this point in time. She is feeling better and has not vomited. Has not had a bowel movement in 12 hours. Most recent endoscopies on September 14, 2018 and October 09, 2016 showed no varices of either of those procedures and both times, she had Snehal-Crews tear. 2. Alcoholic liver disease with cirrhosis with continued alcohol abuse. 3. Prior history of delirium tremens. RECOMMENDATIONS: 1. Continue multivitamin, thiamine, folate, and hydration. 2. Continue DT precautions and scheduled Ativan or Valium. In this case, she is receiving Valium. 3. Continue electrolyte replacement. We will check magnesium, phosphorus, and potassium tomorrow. 4. Continue IV Protonix q.12 hours. 5. Would start Rocephin secondary to GI bleeding, cirrhosis, and increased risk of bacteremia. This is the standard of care, it should be instituted in all cirrhotic bleeding. If she has ongoing bleeding with further drop in hemoglobin, it would be reasonable to keep her hemoglobin above 7 with transfusion, and if she has ongoing bleeding, she may need an upper endoscopy, but at this time, it seems that her bleeding is tapering off on its own. Job ID: [id number]
[2018-10-17] MEDS: Ondansetron ODT 4 MG TAB PO PRN (15:48)
[2018-10-18 04:47] LABS: #Basophils 0.1 thou/uL (0.0-0.2); #Eosinphils 0.4 thou/uL (0.0-0.7); #Lymphocytes 2.8 thou/uL (1.20-3.40); #Monocytes 0.8 thou/uL (0.11-0.59); #Neutrophils 2.3 thou/uL (1.40-6.50); %Basophils 1.6 % (0.0-1.0); %Eosinophils 6.7 % (0.0-10.0); %Lymphocytes 42.8 % (21.0-51.0); %Monocytes 12.5 % (0.0-10.0); %Neutrophils 36.5 % (42.0-75.0); Hemoglobin 7.1 g/dL (12.0-16.0); Mean Corpuscular HGB CONC 31.2 g/dL (32.0-36.0); Mean Corpuscular Hemoglobin 25.8 pg (27.0-31.0); Mean Corpuscular Volume 82.7 fL (78.0-98.0); Mean Platelet Volume 7.7 fL (7.4-10.4); Platelet Count 167 thou/uL (130-400); RBC Distribution Width 17.9 % (11.5-14.5); Red Blood Cell (RBC) Count 2.74 mill/uL (4.20-5.40); White Blood Cell (WBC) Count 6.4 thou/uL (4.8-10.8)
[2018-10-18 05:05] LABS: Anion Gap 11 mmol/L (10-20); BUN (Urea Nitrogen) 10 mg/dL (9.8-20.1); Calc. Creatinine Clearance 120 mL/min (70-130); Calcium 8.5 mg/dL (7.8-10.44); Carbon Dioxide 20 mmol/L (22-29); Chloride 111 mmol/L (98-107); Estimated GFR-MDRD Greater than 90; Glucose 100 mg/dL (70-105); Magnesium 1.6 mg/dL (1.6-2.6); Phosphorus 4.6 mg/dL (2.3-4.7); Potassium 3.7 mmol/L (3.5-5.1); Sodium 138 mmol/L (136-145)
[2018-10-18] MEDS: carBAMazepine 200 MG TAB PO SCH ×2 (08:23→18:09)
[2018-10-18] MEDS: Multivitamin W/ Minerals 1 TAB PO SCH (08:24)
[2018-10-18] MEDS: Folic Acid 1 MG TAB PO SCH (08:24)
[2018-10-18] MEDS: Magnesium Oxide 400 MG TAB PO SCH (08:24)
[2018-10-18] MEDS: Propranolol 10 MG TAB PO SCH ×2 (08:24→21:42)
[2018-10-18] MEDS: Pantoprazole 40 MG VIAL IVP SCH ×2 (08:25→21:41)
--- NOTE | 2018-10-18 09:48 | PDOC.PN ---
- Subjective Encounter Start Date: 10/18/18 Encounter Start Time: 10:40 Subjective: Patient reports only a little nausea and vomiting yesterday. None this AM. -: Had some melena yesterday, none since. - Objective Resuscitation Status - Order Detail: 10/15/18 20:26 Resuscitation Status Routine Resuscitation Status: FULL: Full Resuscitation Discussed with: patient Additional comments: MAR Reviewed: Yes Vital Signs & Weight: Vital Signs (12 hours) Temp Pulse Resp BP BP Pulse Ox 10/18/18 08:00 98.3 F 92 16 104/66 104/66 99 10/18/18 04:00 102/62 10/18/18 03:55 98.9 F 92 18 112/83 99 10/18/18 00:00 98.4 F 90 18 102/62 102/62 95 Weight Weight 165 lb 9.6 oz I&O: 10/17/18 10/18/18 10/19/18 06:59 06:59 06:59 Intake Total 440 1290 Output Total 3600 Balance -3160 1290 Result Diagrams: 10/18/18 04:23 10/18/18 04:23 Phys Exam - Physical Examination Constitutional: NAD HEENT: moist MMs Respiratory: no wheezing, no rales, no rhonchi Cardiovascular: RRR, no significant murmur Gastrointestinal: soft, non-tender, positive bowel sounds Neurological: non-focal, moves all 4 limbs Psychiatric: normal affect, A&O x 3 Dx/Plan (1) Abdominal pain Code(s): R10.9 - UNSPECIFIED ABDOMINAL PAIN Status: Acute Qualifiers: Abdominal location: generalized Qualified Code(s): R10.84 - Generalized abdominal pain Comment: Likely recurrent alcoholic gastritis-resolving, Rocephin dose given per GI recommendations for cirrhotic patient with GI bleeding, no evidence of infection at this point (2) GI bleed Code(s): K92.2 - GASTROINTESTINAL HEMORRHAGE, UNSPECIFIED Status: Acute Comment: Suspect recurrent errosive gastritis and esophagitis. Hgb with initial 2 point drop, slow leak since. Hemodynamically stable. May need transfusion if drops below 7. (3) Alcohol dependence Code(s): F10.20 - ALCOHOL DEPENDENCE, UNCOMPLICATED Status: Acute Comment: Patient susceptible to withdrawl syndrome, on ASE protocol, only mildly tachycardic and mild HT at this time. Continue to monitor closely and dose Valium as needed. (4) Cirrhosis Code(s): K74.60 - UNSPECIFIED CIRRHOSIS OF LIVER Status: Chronic Comment: Resumed Lactulose and Propranolol. - Plan cont current plan of care, PT/OT, DVT proph w/SCDs Hgb slow drop. Still above 7. Will recheck in AM. Transfuse to keep -: above 7. -: If Hgb stabilizes can d/c home. * . - Discharge Day Encounter end time: 10:50
[2018-10-18] MEDS ORDERED: Sodium Chloride 0.65% Nasal 44 ML BOT EA NARE PRN (14:57)
[2018-10-18] MEDS: cefTRIAXone\\ROCEPHIN 1 GM in Sodium Chloride 0.9% 100 ML IVPB SCH (15:04)
--- NOTE | 2018-10-18 15:49 | PRG ---
DATE OF SERVICE: 10/18/2018 SUBJECTIVE: Ms. Osorio wants to eat. She asks if she can have some pudding. She has had a little bit of nose bleeding, just a spot touch with the tissue. She has had no nausea or vomiting. She has had no melena. No bowel movement last night or today. MEDICATIONS: Reviewed. 1. Tegretol. 2. Rocephin. 3. Valium. 4. Folic acid. 5. Lactulose. 6. Magnesium oxide. 7. Multivitamin. 8. Zofran. 9. Pantoprazole 40 q.12. 10. Propranolol. 11. Thiamine. PHYSICAL EXAMINATION: VITAL SIGNS: Temperature 98.6, pulse 89, respirations 14. GENERAL: She is nonicteric. She is resting in bed. She has no overt active nose bleeding. LUNGS: Clear. ABDOMEN: Soft, nontender epigastrium. EXTREMITY: No edema. LABORATORY DATA: White count 6.4, hemoglobin 7.1, and platelet count 167. ASSESSMENT: 1. Gastrointestinal bleed, likely related to Snehal-Crews tear by history of this event and also previous events. Now, there are no signs of active bleeding. Her hemoglobin has trickle down. She has not had a bowel movement in 2 days. 2. Continued alcohol abuse. Alcohol level was 346, which came in at 3:29 p.m. on the . 3. Slight nose bleeding. Platelets are actually relatively good. RECOMMENDATIONS: 1. Saline nasal spray for the nose. 2. Check H and H, unit of blood. 3. We will check an INR tomorrow as well. 4. Advance diet. I think she can agree with Internal Medicine. I think she can move to the floor. Job ID: [id number]
[2018-10-19 06:38] LABS: #Basophils 0.1 thou/uL (0.0-0.2); #Eosinphils 0.5 thou/uL (0.0-0.7); #Lymphocytes 2.4 thou/uL (1.20-3.40); #Monocytes 0.7 thou/uL (0.11-0.59); #Neutrophils 2.8 thou/uL (1.40-6.50); %Basophils 1.3 % (0.0-1.0); %Eosinophils 7.5 % (0.0-10.0); %Lymphocytes 37.3 % (21.0-51.0); %Monocytes 10.7 % (0.0-10.0); %Neutrophils 43.2 % (42.0-75.0); Hemoglobin 6.8 g/dL (12.0-16.0); Mean Corpuscular HGB CONC 32.1 g/dL (32.0-36.0); Mean Corpuscular Hemoglobin 26.5 pg (27.0-31.0); Mean Corpuscular Volume 82.4 fL (78.0-98.0); Mean Platelet Volume 7.8 fL (7.4-10.4); Platelet Count 173 thou/uL (130-400); RBC Distribution Width 17.9 % (11.5-14.5); Red Blood Cell (RBC) Count 2.57 mill/uL (4.20-5.40); White Blood Cell (WBC) Count 6.5 thou/uL (4.8-10.8)
[2018-10-19 06:59] LABS: INR-International Normal Ratio 1.5; Prothrombin Time 18.1 SEC (12.0-14.7)
[2018-10-19] MEDS: Pantoprazole 40 MG VIAL IVP SCH ×2 (08:36→20:03)
[2018-10-19] MEDS: Folic Acid 1 MG TAB PO SCH (08:36)
[2018-10-19] MEDS: Multivitamin W/ Minerals 1 TAB PO SCH (08:36)
[2018-10-19] MEDS: Magnesium Oxide 400 MG TAB PO SCH (08:36)
[2018-10-19] MEDS: Propranolol 10 MG TAB PO SCH ×2 (08:36→20:03)
[2018-10-19] MEDS: carBAMazepine 200 MG TAB PO SCH ×2 (08:36→17:45)
[2018-10-19] MEDS: Ondansetron ODT 4 MG TAB PO PRN (12:56)
[2018-10-19] MEDS: cefTRIAXone\\ROCEPHIN 1 GM in Sodium Chloride 0.9% 100 ML IVPB SCH (14:49)
--- NOTE | 2018-10-19 17:15 | PRG ---
DATE OF SERVICE: 10/19/2018 SUBJECTIVE: Ms. Osorio did receive a unit of blood today. Per the nurse, she has had no vomiting. She is eating cheeseburgers. OBJECTIVE: VITAL SIGNS: Temperature is 98.4, pulse 99, and blood pressure 114/77. LUNGS: Clear. HEART: Regular rate and rhythm. ABDOMEN: Nontender. EXTREMITIES: Reveal no edema. LABORATORY DATA: Hemoglobin was 6.8 this morning, down from 7.1 yesterday; white count 6.5; and platelet count 173. INR 1.5. Sodium 138, potassium 3.7, chloride 111, bicarbonate 20, and BUN and creatinine are 10 and 0.64. ASSESSMENT: 1. Acute alcoholic hepatitis. 2. Alcohol intoxication. 3. Alcohol withdrawal. 4. Hematemesis, presumptively secondary to recurrent Snehal-Crews tear with no active bleeding since admission and one transfusion of blood this morning. BUN remains normal, and she shows no signs of active hemorrhage. RECOMMENDATIONS: 1. Check H and H tomorrow. Continue PPI. Continue multivitamin, thiamine, and folate. 2. We can stop ceftriaxone at this time as it seems she has no ongoing bleeding. Dr. Cline will check on patient tomorrow from GI standpoint. Job ID: [id number]
--- NOTE | 2018-10-19 18:00 | PDOC.PN ---
- Subjective Encounter Start Date: 10/19/18 Encounter Start Time: 17:58 [place] nauseated after eating half of her hamburger at lunch, feels better now. No emesis. No BM today, has been declining her lactulose. Received one unit of blood today. Anxious to go home. Discussed alcohol use, she communicated that she is very motivated for total cessation. We discussed alcoholic liver disease and complications at length. - Objective Resuscitation Status - Order Detail: 10/15/18 20:26 Resuscitation Status Routine Resuscitation Status: FULL: Full Resuscitation Discussed with: patient Additional comments: Vital Signs & Weight: Vital Signs (12 hours) Temp Pulse Pulse Resp BP BP BP 10/19/18 15:35 10/19/18 12:00 98.4 F 99 19 114/77 125/75 10/19/18 10:44 98.7 F 90 14 114/77 10/19/18 10:28 98.0 F 10/19/18 08:00 97.9 F 90 16 144/76 H 10/19/18 07:53 10/19/18 07:51 101/79 Pulse Ox 10/19/18 15:35 95 10/19/18 12:00 100 10/19/18 10:44 100 10/19/18 10:28 10/19/18 08:00 10/19/18 07:53 100 10/19/18 07:51 Weight Weight 166 lb 14.4 oz Most Recent Monitor Data Heart Rate from ECG 93 NIBP 118/65 Respiration from ECG 16 I&O: 10/18/18 10/19/18 10/20/18 06:59 06:59 06:59 Intake Total 1290 1120 0 Balance 1290 1120 0 Result Diagrams: 10/19/18 06:02 10/18/18 04:23 Phys Exam - Physical Examination Constitutional: NAD HEENT: moist MMs, oral pharynx no lesions Neck: no JVD, full ROM Respiratory: clear to auscultation bilateral Mildly tachycardic Gastrointestinal: soft, non-tender Musculoskeletal: no edema Neurological: non-focal Slightly shaky Psychiatric: normal affect, A&O x 3 Deviation from normal: Slightly anxious Skin: no rash Dx/Plan (1) Abdominal pain Code(s): R10.9 - UNSPECIFIED ABDOMINAL PAIN Status: Acute Qualifiers: Abdominal location: generalized Qualified Code(s): R10.84 - Generalized abdominal pain Comment: Likely recurrent alcoholic gastritis- continues to improve. Rocephin discontinued per GI (2) GI bleed Code(s): K92.2 - GASTROINTESTINAL HEMORRHAGE, UNSPECIFIED Status: Acute Comment: Suspect recurrent Snehal Crews/erosive gastritis and esophagitis. Hgb with initial 2 point drop, slow leak since. Hemodynamically stable. Transfuse today 10/19, check AM CBC (3) Cirrhosis Code(s): K74.60 - UNSPECIFIED CIRRHOSIS OF LIVER Status: Chronic Comment: Resumed Lactulose and Propranolol. (4) Alcohol dependence Code(s): F10.20 - ALCOHOL DEPENDENCE, UNCOMPLICATED Status: Acute Comment: Patient susceptible to withdrawl syndrome, on ASE protocol, only mildly tachycardic and mild HT at this time. Continue to monitor closely and dose Valium as needed. (5) Thrombocytopenia Code(s): D69.6 - THROMBOCYTOPENIA, UNSPECIFIED Status: Chronic Comment: Secondary to early cirrhosis - Plan * .Alcohol cessation as per HPI - she is ready to quit. Connect with community resources. CM consult * Perhaps home 10/20 if tolerates diet and Hg stable
[2018-10-20] MEDS: Acetaminophen 325 MG TAB PO PRN (03:54)
[2018-10-20 07:03] LABS: #Eosinphils 0.4 thou/uL (0.0-0.7); #Lymphocytes 1.9 thou/uL (1.20-3.40); #Monocytes 0.7 thou/uL (0.11-0.59); #Neutrophils 2.8 thou/uL (1.40-6.50); %Basophils 0.5 % (0.0-1.0); %Eosinophils 6.1 % (0.0-10.0); %Lymphocytes 33.2 % (21.0-51.0); %Monocytes 12.4 % (0.0-10.0); %Neutrophils 47.8 % (42.0-75.0); Hemoglobin 7.6 g/dL (12.0-16.0); Mean Corpuscular HGB CONC 31.7 g/dL (32.0-36.0); Mean Corpuscular Hemoglobin 26.1 pg (27.0-31.0); Mean Corpuscular Volume 82.2 fL (78.0-98.0); Mean Platelet Volume 7.9 fL (7.4-10.4); Platelet Count 144 thou/uL (130-400); RBC Distribution Width 18.1 % (11.5-14.5); Red Blood Cell (RBC) Count 2.92 mill/uL (4.20-5.40); White Blood Cell (WBC) Count 5.8 thou/uL (4.8-10.8)
[2018-10-20 07:15] LABS: Anion Gap 10 mmol/L (10-20); BUN (Urea Nitrogen) 4 mg/dL (9.8-20.1); Calc. Creatinine Clearance 138 mL/min (70-130); Calcium 8.2 mg/dL (7.8-10.44); Carbon Dioxide 21 mmol/L (22-29); Chloride 108 mmol/L (98-107); Estimated GFR-MDRD Greater than 90; Glucose 100 mg/dL (70-105); Potassium 3.5 mmol/L (3.5-5.1); Sodium 135 mmol/L (136-145)
[2018-10-20] MEDS: Propranolol 10 MG TAB PO SCH (08:34)
[2018-10-20] MEDS: Pantoprazole 40 MG VIAL IVP SCH (08:34)
[2018-10-20] MEDS: Multivitamin W/ Minerals 1 TAB PO SCH (08:34)
[2018-10-20] MEDS: carBAMazepine 200 MG TAB PO SCH (08:34)
[2018-10-20] MEDS: Folic Acid 1 MG TAB PO SCH (08:35)
[2018-10-20] MEDS: Magnesium Oxide 400 MG TAB PO SCH (08:35)
--- NOTE | 2018-10-20 11:25 | PRG ---
DATE OF SERVICE: 10/20/2018 SUBJECTIVE: The patient is feeling well today. She is eating okay. Bowels are moving. OBJECTIVE: VITAL SIGNS: Temperature is 98.3, pulse 92, respiratory rate 18, and blood pressure 109/71. CHEST: Clear. CARDIOVASCULAR: Regular rate and rhythm. ABDOMEN: Benign. LABORATORY DATA: Shows a hemoglobin of 7.6, hematocrit 24.0. Chemistry shows sodium 135 and CO2 of 21. ASSESSMENT: 1. Hematemesis from Snehal-Crews tear-stable. 2. Alcoholic hepatitis. 3. Alcohol withdrawal. RECOMMENDATIONS: 1. Continue PPI. 2. Stable for discharge from GI standpoint. Job ID: [id number]
[2018-10-20 13:59] VITALS: BP 117/74; TEMP 97.9
--- NOTE | 2018-10-20 21:26 | EKG ---
Test Reason : Blood Pressure : / mmHG Vent. Rate : 122 BPM Atrial Rate : 122 BPM P-R Int : 164 ms QRS Dur : 090 ms QT Int : 326 ms P-R-T Axes : 051 009 034 degrees QTc Int : 464 ms Sinus tachycardia Possible Anterior infarct , age undetermined Abnormal ECG Confirmed by RELL SILVA ([id number]), legal editor UNA BUSCH ([id number]) on 10/20/2018 9:25:36 PM Referred By: Confirmed By:RELL SILVA
--- NOTE | 2018-10-21 00:33 | DIS ---
DATE OF ADMISSION: 10/15/2018 DATE OF DISCHARGE: 10/20/2018 CONSULTANTS: Gastroenterology, Dr. Cline and Dr. Curtis. MEDICATIONS AT DISCHARGE: Medications are reconciled at discharge unchanged compared to home medications; 1. Tylenol No.3 two tablets every 4 hours as needed. 2. Folic acid 1 mg daily. 3. Gabapentin 300 mg at night. 4. Lactulose 10 g per 15 mL, 20 g p.o. b.i.d. 5. Magnesium oxide 400 mg daily. 6. Multivitamin one daily. 7. Protonix 40 mg b.i.d. 8. Propranolol 10 mg b.i.d. 9. Thiamine 100 mg daily. 10. Tegretol 200 mg t.i.d. with meals. FOLLOWUP: Followup is with the primary care provider within a week to review this hospitalization and address any other health needs. FINAL DIAGNOSES: 1. Hematemesis, secondary to Snehal-Crews tear, stable. 2. Alcoholic hepatitis. 3. Alcohol withdrawal. 4. History of liver cirrhosis. 5. Hypertension. 6. Chronic back pain. 7. Fibromyalgia. 8. Migraines. 9. History of polysubstance abuse. 10. Anemia, chronic with acute blood loss, normocytic. HISTORY OF PRESENT ILLNESS: Ms. Osorio is a 53-year-old female with the above medical problems, who presented to the emergency room with complaint of abdominal pain, vomiting, including vomiting of blood. In the emergency room, she was noted to be intoxicated, had a fall in the bathroom, for which she was evaluated with a CT of the head and neck, and hospitalist called due to the hematemesis. HOSPITAL COURSE: The patient was monitored in the hospital, started on a PPI twice daily by IV for management of the hematemesis. GI was consulted and saw the patient on 10/16 with recommendation for continuing the PPI, staying n.p.o., and abstinence from alcohol use. The patient did not require endoscopy during this hospitalization as the hematemesis resolved. She did, however, undergo transfusion of 1 unit of packed red blood cells, which she tolerated well. The patient has not shown any significant signs of alcohol withdrawal, and has been kept on her usual medications. She does have a known anemia that is chronic, and her hemoglobin today is 7.6. She is overall feeling well, tolerating a diet, and does meet criteria for discharge to home. She will need a repeat blood count next week with her primary care provider to ensure that it is at least stable if not improving. During this hospitalization, alcohol cessation was discussed with the patient and she was connected with community resources available. The patient overall meets criteria for discharge to home. PHYSICAL EXAMINATION: VITAL SIGNS: On day of discharge, blood pressure 109/71, temperature 98.3, pulse 92, respirations 18, and saturations 93% on room air. GENERAL: Awake, alert, responsive, in no apparent distress. LUNGS: Have right faint rales at the base, none present on the left side. No audible wheezing or rhonchi and good air movement. HEART: Normal S1, S2. Regular rate and rhythm. No audible murmurs. ABDOMEN: Soft, present bowel sounds. Nontender, nondistended. EXTREMITIES: No pitting edema. BARTHOLOMEW FINDINGS AND TEST RESULTS: CBC today WBC 5.8, hemoglobin 7.6, hematocrit 24.0, and platelets 144 with a hemoglobin on admission of 11, but otherwise the hemoglobin has ranged from a low of 6.8 yesterday to 8.5. INR 1.5. Chemistry today sodium 135, potassium 3.5, chloride 108, bicarbonate 21, BUN 4, creatinine 0.56, and glucose 100 with a calcium of 8.2. Urine showed small leukocyte esterase, negative nitrite, negative white blood cells. Blood alcohol level on admission was 346. Cervical spine CT on 10/15, negative for any acute osseous abnormality. Brain CT on 10/15, negative for any acute intracranial abnormality. DIET: Heart healthy. ACTIVITY: As tolerated. Reviewed with the patient this hospitalization, concerns about alcohol and its effects on her body, her medications, and seek care precautions. We also discussed the importance of followup. No questions or further needs at end of evaluation. Total time coordinating discharge is 35 minutes. CODE STATUS: Full. Job ID: [id number] [facility]
== END 2018-10-20 14:30 | disposition home or self-care (01) | DRG 378 ==
LOC: ERS 14:56 → ERHOLD 17:29 → IMCU/EMU 23:28 → T4-B 10-19 15:12
PROVIDERS: ADMIT Emergency Medicine; ATTEND Emergency Medicine
PROC: 30233N1 Transfusion of Nonautologous Red Blood Cells into Peripheral Vein, Percutaneous Approach (ICD-10-PCS; principal; 2018-10-19)
DX: K92.0 Hematemesis (principal); D62 Acute posthemorrhagic anemia; F10.239 Alcohol dependence with withdrawal, unspecified; K22.6 Gastro-esophageal laceration-hemorrhage syndrome; K70.10 Alcoholic hepatitis without ascites; K74.60 Unspecified cirrhosis of liver; M79.7 Fibromyalgia; I10 Essential (primary) hypertension; T51.0X1A Toxic effect of ethanol, accidental (unintentional), initial encounter; Y90.8 Blood alcohol level of 240 mg/100 ml or more
CPT/HCPCS: 36415; 36430; 70450; 72125; 80048; 80053; 80307; 81003; 81015; 82105; 83690; 83735; 84100; 84484; 85025; 85610; 86850; 86900; 86901; 93005; 96365; 96366; 96375; C9113; J0696; J2060; J2405; J3411; J3475; J7042; J7050; P9016; Q0162

== ENCOUNTER 2018-11-10 23:48 | Observation (INO) | payer OTHER, SELFPAY ==
[2018-11-11] MEDS ORDERED: Ondansetron PF 4 MG/2 ML Vial ONE ×2 (00:10→01:03)
[2018-11-11 00:53] LABS: #Basophils 0.1 thou/uL (0.0-0.2); #Eosinphils 0.2 thou/uL (0.0-0.7); #Lymphocytes 4.1 thou/uL (1.20-3.40); #Monocytes 1.2 thou/uL (0.11-0.59); #Neutrophils 2.9 thou/uL (1.40-6.50); %Basophils 1.2 % (0.0-1.0); %Eosinophils 2.3 % (0.0-10.0); %Lymphocytes 48.3 % (21.0-51.0); %Monocytes 14.6 % (0.0-10.0); %Neutrophils 33.6 % (42.0-75.0); Mean Corpuscular HGB CONC 31.5 g/dL (32.0-36.0); Mean Corpuscular Hemoglobin 24.9 pg (27.0-31.0); Mean Corpuscular Volume 79.3 fL (78.0-98.0); Mean Platelet Volume 8.7 fL (7.4-10.4); Platelet Count 130 thou/uL (130-400); RBC Distribution Width 19.1 % (11.5-14.5); Red Blood Cell (RBC) Count 3.22 mill/uL (4.20-5.40); White Blood Cell (WBC) Count 8.5 thou/uL (4.8-10.8)
[2018-11-11 00:58] LABS: INR-International Normal Ratio 1.3; Prothrombin Time 16.6 SEC (12.0-14.7)
[2018-11-11 00:59] LABS: PTT 35.5 SEC (22.9-36.1)
[2018-11-11] MEDS ORDERED: Pantoprazole 40 MG VIAL ONE (01:03)
[2018-11-11 01:05] LABS: ALT (SGPT) 18 U/L (8-55); AST (SGOT) 71 U/L (5-34); Acetaminophen Less than 6.0 mcg/mL (10.0-30.0); Albumin 3.3 g/dL (3.5-5.0); Alcohol 333 mg/dL (Less than 10); Alkaline Phosphatase 184 U/L (40-150); Anion Gap 14 mmol/L (10-20); BUN (Urea Nitrogen) Less than 4 mg/dL (9.8-20.1); CK (CPK) 63 U/L (29-168); Calc. Creatinine Clearance 0 mL/min (70-130); Calcium 8.5 mg/dL (7.8-10.44); Carbon Dioxide 21 mmol/L (22-29); Chloride 106 mmol/L (98-107); Estimated GFR-MDRD Greater than 90; Globulin 4.1 g/dL (2.4-3.5); Glucose 109 mg/dL (70-105); Potassium 3.6 mmol/L (3.5-5.1); Protein, Total 7.4 g/dL (6.0-8.3); Salicylate Less than 8.0 mg/dL (15.0-30.0); Sodium 137 mmol/L (136-145)
[2018-11-11] MEDS ORDERED: Multivitamins, Adult 10 ML, Thiamine HCl 100 MG, Folic Acid 1 MG in Dextrose 5 %-0.45 %... IV SCH (02:00)
[2018-11-11 02:07] LABS: Base Excess-Venous -2.7 mmol/L (0 (+/- 2.5)); Bicarbonate (HCO3v) 19.2 mmol/L (22.0-29.0); CO2 Tension (PvCO2) 22.7 mmHg (41.0-51.0); Calcium, Ionized 0.98 mmol/L (1.12-1.32); Hemoglobin - Calc 7.8 g/dL (12.0-18.0); O2 Tension (PvO2) 98.8 mmHg (35.0-45.0); Potassium 3.4 mmol/L (3.4-4.7); T. Carbon Dioxide 19.9 mmol/L (1.0-85.0); pH (Venous) 7.536 (7.35-7.45); vO2 Saturation-calc 98.6 % (94-98)
[2018-11-11 02:21] LABS: Bilirubin Negative (Negative); Blood, Urine Negative (Negative); Clarity CLEAR (Clear); Glucose, Urine (Dipstick) Negative (Negative); Leukocyte Moderate (Negative); Nitrite Negative (Negative); Protein, Urine (Dipstick) Negative (Neg-Trace); Specific Gravity, Urine 1.003 (1.002-1.036); Urobilinogen 0.2 mg/dL (0.2-1.0)
[2018-11-11 02:24] LABS: Pathc Cast-AUWi Flag 0.58 (0-2.49)
[2018-11-11 02:36] LABS: RBC/HPF 0-3 HPF (0-3)
[2018-11-11 02:37] LABS: Bacteria/HPF Rare-Few HPF (None Seen); Hyaline Casts/LPF NONE SEEN LPF (0-3 Hyaline); Squamous Epithelial 0-3 HPF (0-3)
[2018-11-11] MEDS ORDERED: Ondansetron PF 4 MG/2 ML Vial IVP PRN ×2 (03:22→18:45)
[2018-11-11] MEDS ORDERED: Ondansetron ODT 4 MG TAB SL PRN (03:22)
[2018-11-11] MEDS ORDERED: Lorazepam 2 MG/ML VIAL SLOW IVP SCH (04:30)
[2018-11-11 04:54] LABS: Lactic Acid 1.4 mmol/L (0.5-2.2)
[2018-11-11] MEDS ORDERED: Diazepam 5 MG TAB PO SCH (05:15)
[2018-11-11 06:19] LABS: Hemoglobin 7.1 g/dL (12.0-16.0)
[2018-11-11] MEDS ORDERED: Dextrose 5 %-0.45 % NaCl 1,000 ML IV SCH ×2 (07:00→09:04)
[2018-11-11] MEDS: Folic Acid 1 MG TAB PO SCH (09:11)
[2018-11-11] MEDS: Multivitamin W/ Minerals 1 TAB PO SCH (09:11)
[2018-11-11] MEDS: Pantoprazole 40 MG VIAL IVP SCH ×2 (09:11→23:30)
[2018-11-11] MEDS: Diazepam 5 MG TAB PO PRN ×3 (10:06→20:25)
[2018-11-11] MEDS: cefTRIAXone\\ROCEPHIN 1 GM in Sodium Chloride 0.9% 100 ML IVPB SCH (13:29)
[2018-11-11] MEDS: Dextrose 5 %-0.45 % NaCl 1,000 ML IV SCH (15:10)
--- NOTE | 2018-11-11 16:08 | CON ---
DATE OF CONSULTATION: 11/11/2018 GI CONSULT REASON FOR CONSULT: Possible GI bleed, abdominal pain, and history of cirrhosis. HISTORY OF PRESENT ILLNESS: Ms. Osorio is a 53-year-old female, well known to our GI Service, who has continued alcohol abuse and cirrhosis from this, who has had complications of GI bleeding mainly from Snehal-Crews tears in the past. Her last endoscopy was 09/14/2018, at which time, she had a Snehal-Crews tear, which was treated endoscopically. She had hemorrhagic shock, required transfusion at that time. She had erosive gastritis, erosive esophagitis, but no evidence of gastric or esophageal varices. This has been a common finding on previous endoscopies, the 1 before that was in October of 2016. At this time, she states she did not throw up any blood. She has had a little bit of mucus with blood in the stool, but mainly she was having nose bleeding for the past several days. She reports that her primary carpenter repairer in [place], had diagnosed her with some shingles. She is also using a Neti pot and have thought that maybe that was irritating her nose. But in any event, she is having epistaxis and facial pain and itching all of her body as well as some lower abdominal pain. She continues to drink alcohol and had an alcohol level over 300 in the emergency room. She denies any fever or chills. She did have a little blood in her emesis, but nothing like what she has had in the past. Mainly, she was having nosebleeds. In the emergency room, she was given banana bag, Protonix, Zofran, and a liter of normal saline. HOME MEDICATIONS: 1. Tylenol 3. 2. Folic acid. 3. Gabapentin. 4. Lactulose. 5. Magnesium. 6. Multivitamin. 7. Protonix. 8. Propranolol 10 mg b.i.d. 9. Thiamine. 10. Tegretol. PREVIOUS MEDICAL HISTORY: Alcoholic hepatitis, alcohol withdrawal, cirrhosis of liver, hypertension, chronic back pain, fibromyalgia, migraines, and history of polysubstance abuse. PAST SURGICAL HISTORY: Breast augmentation, tubal ligation, endometrial ablation, and ankle surgery. SOCIAL HISTORY: Continues to drink alcohol 12 beers per day. FAMILY HISTORY: Negative for cirrhosis or GI malignancy. ALLERGIES: IODINE. MEDICATIONS: Here; 1. Rocephin 1 g daily. 2. D5 half-normal saline at 75 an hour. 3. P.R.N. Valium for withdrawal. 4. Multivitamin. 5. Thiamine. 6. Folate. 7. Mag oxide. 8. P.R.N. morphine. 9. P.R.N. zolpidem. 10. Ambien. 11. Protonix 40 mg IV q.12. PHYSICAL EXAMINATION: VITAL SIGNS: Pulse 120, blood pressure 133/74, temperature 98, O2 saturation 94%, and respirations 16. GENERAL: She is alert and oriented to person, place, and time. HEENT: She has no active nosebleed at this point, does have some old clot there. Dentition is normal. There is no bleeding in the mouth. She is nonicteric. NECK: Supple. No adenopathy. LUNGS: Clear. HEART: Sinus tachycardia. ABDOMEN: Protuberant with some shifting dullness and fluid wave. She has mild tenderness in lower abdomen. No rebound or guarding. EXTREMITIES: Reveal no clubbing or cyanosis. She has trace edema in her legs. LABORATORY DATA: Sodium 137, potassium 3.7, chloride 107, bicarb 21, anion gap 14, BUN 4, creatinine 0.56, glucose 100, bilirubin is 1, AST 61, ALT 18, alkaline phosphatase 184, albumin 3.3, protein 7.4, and lipase was 28. AFP was 83 in October of this year. Urine, moderate leukocyte esterase, 4 to 6 white blood cells, and rare bacteria. Venous blood gas on admission showed pH of 7.5. Tox screen shows plasma alcohol 333. Tylenol less than 6. Salicylates less than 8. INR is 1.3. ASSESSMENT: 1. Epistaxis and mild hematemesis without overt signs of hemorrhage at this time. Likely this is related to gastritis, esophagitis, and thrombocytopenia with irritation of nose possibly from Neti pot, although she thinks she may have shingles in her nose. She has no pain presently. She has no lesions around the nose. There is no evidence of ongoing hemorrhage. Hemoglobin is stable. 2. Alcoholic hepatitis. 3. Cirrhosis. 4. Hypertension. 5. Tachycardia could be from alcohol withdrawal. It could be from infection, spontaneous bacterial peritonitis. There is no evidence of hypovolemia. She has normal renal function at this time. RECOMMENDATIONS: We would hold sleep aids and any sedatives unless she has withdrawal symptoms and those orders were present in chart. We gave her banana bag daily. We would do serial H and H's. We do a PPI b.i.d. and Zofran p.r.n. for nausea. She is to stay n.p.o. for now. I have started empirically on antibiotics and would go ahead and get her a paracentesis to rule out SBP as she has some abdominal pain and tachycardia. Job ID: [id number]
--- NOTE | 2018-11-11 16:41 | PDOC.PN ---
- Subjective Encounter Start Date: 11/11/18 Encounter Start Time: 08:00 Subjective: Patient presenting with abdominal discomfort, n/v and epistaxis ( chronic). -: Reports no emesis, but states she did bring up blood tinged mucus. -: She states her abdomen feels more distended than usual, causing discomfort. She is known to be alcohol dependent with liver cirrhosis. Reports difficulty cutting down on alcohol but feels she is ready to. Reports issues with epistaxis, has required cauterization in the past. Admits to self-induced trauma as she has been picking in the left nostril. No active bleeding. Reports having chronically black stools. She has a history of mita viki tear in 2017. Previous EGD showed erosive gastritis and erosive eophagitis. Hx of alcohol withdrawal seizures in the past. No tremors or sweats at present. - Objective Resuscitation Status - Order Detail: 11/11/18 05:08 Resuscitation Status Routine Resuscitation Status: FULL: Full Resuscitation Vital Signs & Weight: Vital Signs (12 hours) Temp Pulse Resp BP BP Pulse Ox 11/11/18 16:00 99 F 125 H 18 148/86 H 95 11/11/18 11:01 98.2 F 126 H 16 133/74 94 L 11/11/18 07:45 98.1 F 126 H 20 121/62 94 L Weight Weight 176 lb 11.2 oz I&O: 11/10/18 11/11/18 11/12/18 06:59 06:59 06:59 Intake Total 100 100 Output Total 1600 Balance 100 -1500 Result Diagrams: 11/11/18 17:15 11/11/18 00:19 Phys Exam - Physical Examination Constitutional: NAD HEENT: PERRLA, sclera anicteric, oral pharynx no lesions Neck: supple, full ROM Respiratory: clear to auscultation bilateral Tachycardic, 120s. Abdomen distended, soft, with mild diffuse discomfort on palpation. Musculoskeletal: no edema Neurological: normal sensation, moves all 4 limbs Psychiatric: normal affect, A&O x 3 Skin: no rash, cap refill <2 seconds Dx/Plan (1) Abdominal pain Code(s): R10.9 - UNSPECIFIED ABDOMINAL PAIN Status: Acute Qualifiers: Abdominal location: generalized Qualified Code(s): R10.84 - Generalized abdominal pain Comment: Likely recurrent alcoholic gastritis- continues to improve. Rocephin discontinued per GI (2) Ascites Code(s): R18.8 - OTHER ASCITES Status: Acute Comment: No SBP (3) Chronic anemia Code(s): D64.9 - ANEMIA, UNSPECIFIED Status: Acute (4) Chronic alcoholism Code(s): F10.20 - ALCOHOL DEPENDENCE, UNCOMPLICATED Status: Chronic - Plan cont current plan of care Discussed with Dr. Beltran who advised prophylactic Abx. -: Will be seeing patient later today. -: No need to scope, as not had any hematemesis during this visit. -: US guided paracentesis, given increased ascites. -: Recheck H/H, if further decrease will require transfusion. ADDENDUM: Patient discussed with Dr. Henley. ECG given tachycardia. Could be due to alcohol withdrawal, though no tremors at present. Patient not been getting her normal meds including Propanolol. Medications reconciled. Continue NILES protocol. Patient will be transfused with 1 unit PRBCs. Continue to monitor H/H as well as hear rate for improvement following evening dose of propanolol.
[2018-11-11 17:22] LABS: Hemoglobin 7.1 g/dL (12.0-16.0)
[2018-11-11] MEDS ORDERED: Ondansetron ODT 4 MG TAB PO PRN (18:45)
[2018-11-11] MEDS ORDERED: Acetaminophen 650 MG Suppository PR PRN (18:45)
[2018-11-11] MEDS: Propranolol 10 MG TAB PO SCH (20:25)
[2018-11-11] MEDS: Gabapentin 300 MG CAP PO SCH (20:25)
[2018-11-11] MEDS: Acetaminophen 325 MG TAB PO PRN (20:25)
[2018-11-12] MEDS: Dextrose 5 %-0.45 % NaCl 1,000 ML IV SCH ×3 (01:03→21:01)
[2018-11-12] MEDS ORDERED: Diazepam 5 MG TAB PO PRN (04:00)
[2018-11-12 04:38] LABS: Anion Gap 11 mmol/L (10-20); BUN (Urea Nitrogen) Less than 4 mg/dL (9.8-20.1); Calc. Creatinine Clearance 152 mL/min (70-130); Calcium 8.7 mg/dL (7.8-10.44); Carbon Dioxide 22 mmol/L (22-29); Chloride 107 mmol/L (98-107); Estimated GFR-MDRD Greater than 90; Glucose 103 mg/dL (70-105); Potassium 3.3 mmol/L (3.5-5.1); Sodium 137 mmol/L (136-145)
[2018-11-12 06:10] VITALS: BMI 29.2
[2018-11-12] MEDS ORDERED: Sodium Bicarbonate 2.5 MEQ/5 ML VIAL ONE (07:08)
[2018-11-12 08:49] LABS: BF Color Yellow; Body Fluid Source PARACENTESIS FLD; Clarity Hazy (Clear); Tube # EDTA
[2018-11-12 08:50] LABS: RBC Background Count 0.006; WBC Background Count 0.01
[2018-11-12 08:51] LABS: WBC/NonHematic-Auto 448 /cumm
[2018-11-12] MEDS: Multivitamin W/ Minerals 1 TAB PO SCH (09:00)
[2018-11-12] MEDS: Propranolol 10 MG TAB PO SCH ×2 (09:01→20:50)
[2018-11-12] MEDS: Magnesium Oxide 400 MG TAB PO SCH (09:01)
[2018-11-12] MEDS: Folic Acid 1 MG TAB PO SCH (09:01)
[2018-11-12] MEDS: carBAMazepine 200 MG TAB PO SCH ×2 (09:06→18:49)
--- NOTE | 2018-11-12 09:23 | ULT ---
DIAGNOSTIC ULTRASOUND GUIDED PARACENTESIS: Date: 11-12-18 Comparison: None. History: Ascites, alcohol induced liver cirrhosis. FINDINGS: Informed consent for ultrasound guided paracentesis obtained prior to the procedure. Pre-procedural imaging demonstrates small volume ascites within the right upper quadrant and left low er quadrant. Skin overlying the left lower quadrant was prepped and draped in normal sterile fashion and anestheti zed with 1% buffered Lidocaine. With direct sonographic guidance, a 25 gauge needle was advanced into the ascites within the left lower quadrant and 10 cc of yellow fluid was aspirated for laboratory as sessment. The patient tolerated the procedure well. IMPRESSION: Successful diagnostic paracentesis with ultrasound guidance yielding 10 cc of yellow fluid. POS: KHLOE
[2018-11-12 12:06] LABS: BF RBC Count - Manual 835 /cumm
[2018-11-12 12:38] LABS: BF Segmented Neutrophils 2 %; Cell Count Non Hematic 90 %; Lymphocytes 8 %
[2018-11-12] MEDS: cefTRIAXone\\ROCEPHIN 1 GM in Sodium Chloride 0.9% 100 ML IVPB SCH (13:06)
[2018-11-12] MEDS: Acetaminophen 325 MG TAB PO PRN (13:06)
[2018-11-12] MEDS: Pantoprazole 40 MG VIAL IVP SCH ×2 (13:16→20:58)
--- NOTE | 2018-11-12 13:54 | PRG ---
DATE OF SERVICE: 11/12/2018 SUBJECTIVE: Ms. Osorio states she has not had any bowel movements. She has had no blood. She has a headache, but feels like she just needs to eat. She had ultrasound-guided paracentesis today with 10 mL of yellow fluid removed that showed 48 white blood cells with 2% segs. Path review is pending. No hematology was done today. Basic metabolic shows sodium 137, potassium 3.3, BUN and creatinine are 4 and 0.54. PHYSICAL EXAMINATION GENERAL: She looks well. She feels better. VITAL SIGNS: Pulse is down to 84, temperature 98.7, and blood pressure 146/75. HEENT: She is not icteric. LUNGS: Clear. HEART: Regular rate and rhythm. ABDOMEN: Slightly protuberant, but nontender. ASSESSMENT: 1. Alcoholic liver disease with hepatomegaly. 2. Ascites with white count of over 415. Absolute neutrophil count is less than 250. However, with her profound tachycardia and vague abdominal pain on admission, I would go ahead and treat her for 7 days for spontaneous bacterial peritonitis. 3. Epistaxis, resolved. 4. History of hematemesis, last admission, several before she has had Snehal-Crews tear from severe retching in association with her hiatal hernia. 5. Continued alcohol abuse with alcohol of over 300 on admission. 6. Tachycardia, resolved. RECOMMENDATIONS: 1. I had a latricia discussion with Ms. Osorio about her need to go to rehab or do AA. She has a family support resource to do so. If she continues to drink, I have informed her no uncertain terms, she would likely soon from liver failure. 2. Continue multivitamin, thiamine, folate. 3. Continue IV PPIs. 4. Advance diet. 5. Check labs tomorrow morning. Job ID: [id number]
--- NOTE | 2018-11-12 15:43 | PDOC.PN ---
- Subjective Encounter Start Date: 11/12/18 Encounter Start Time: 15:43 Patient lying in bed, reports feeling better today. She underwent paracentesis, path pending. Spoke with Dr Stewart, no plan for endoscopy at this time. She denies chest pain or shortness of breath. - Objective Resuscitation Status - Order Detail: 11/11/18 05:08 Resuscitation Status Routine Resuscitation Status: FULL: Full Resuscitation MAR Reviewed: Yes Vital Signs & Weight: Vital Signs (12 hours) Temp Pulse Resp BP BP Pulse Ox 11/12/18 12:10 98.7 F 84 20 146/75 H 98 11/12/18 06:01 136/73 11/12/18 04:30 136/73 Weight Weight 176 lb I&O: 11/11/18 11/12/18 11/13/18 06:59 06:59 06:59 Intake Total 100 2180 1354 Output Total 1600 Balance 366 890 [id number] Result Diagrams: 11/11/18 23:09 11/12/18 04:19 Radiology Reviewed by me: Yes Phys Exam - Physical Examination Constitutional: NAD HEENT: PERRLA, moist MMs, oral pharynx no lesions Neck: no nodes, no JVD, full ROM Respiratory: no wheezing, no rales, clear to auscultation bilateral Cardiovascular: RRR, no significant murmur Gastrointestinal: soft, non-tender, positive bowel sounds Musculoskeletal: no edema, pulses present Neurological: non-focal, moves all 4 limbs Lymphatic: no nodes Psychiatric: normal affect, A&O x 3 Skin: no rash, cap refill <2 seconds Dx/Plan (1) Alcohol dependence Code(s): F10.20 - ALCOHOL DEPENDENCE, UNCOMPLICATED Status: Acute Comment: Patient susceptible to withdrawl syndrome, on ASE protocol, only mildly tachycardic and mild HT at this time. Continue to monitor closely and dose Valium as needed. (2) Ascites Code(s): R18.8 - OTHER ASCITES Status: Acute Comment: No SBP (3) Chronic anemia Code(s): D64.9 - ANEMIA, UNSPECIFIED Status: Acute (4) Cirrhosis Code(s): K74.60 - UNSPECIFIED CIRRHOSIS OF LIVER Status: Chronic Comment: Resumed Lactulose and Propranolol. - Plan cont current plan of care, continue antibiotics Spoke with Dr Stewart, no plan for endoscopy -: Continue PPI -: Monitor for DTs, continue ASE -: Continue abx, await pathology from paracentesis * .
[2018-11-12 16:44] LABS: Anisocytosis SLIGHT = 6-15 cells (100X) (0-5/hpf); Eosinophils 4 % (0-10); Hemoglobin 8.6 g/dL (12.0-16.0); Hypochromia SLIGHT = 6-15 cells (100X) (0-5/hpf); Lymphocytes 30 % (21-51); MDiff Complete? YES; Mean Corpuscular HGB CONC 31.5 g/dL (32.0-36.0); Mean Corpuscular Volume 82.7 fL (78.0-98.0); Mean Platelet Volume 10.4 fL (7.4-10.4); Monocytes 8 % (0-10); Neutrophil 58 % (42-75); Ovalocytes SLIGHT = 2-5 cells (100X) (0-1/hpf); Platelet Count 53 thou/uL (130-400); Platelet Morphology Comment Appears Decreased; Polychromasia SLIGHT = 2-3 cells (100X) (0-2/hpf); RBC Distribution Width 18.3 % (11.5-14.5); Target Cells SLIGHT = 2-5 cells (100X) (0-1/hpf); White Blood Cell (WBC) Count 4.1 thou/uL (4.8-10.8)
[2018-11-12] MEDS: Gabapentin 300 MG CAP PO SCH (20:50)
[2018-11-13 05:42] LABS: Anion Gap 11 mmol/L (10-20); BUN (Urea Nitrogen) 4 mg/dL (9.8-20.1); Calc. Creatinine Clearance 132 mL/min (70-130); Calcium 8.6 mg/dL (7.8-10.44); Carbon Dioxide 22 mmol/L (22-29); Chloride 106 mmol/L (98-107); Estimated GFR-MDRD Greater than 90; Glucose 96 mg/dL (70-105); Magnesium 1.5 mg/dL (1.6-2.6); Phosphorus 4.5 mg/dL (2.3-4.7); Potassium 3.4 mmol/L (3.5-5.1); Sodium 136 mmol/L (136-145)
[2018-11-13 05:56] LABS: Anisocytosis SLIGHT = 6-15 cells (100X) (0-5/hpf); Eosinophils 6 % (0-10); Hemoglobin 8.7 g/dL (12.0-16.0); Hypochromia SLIGHT = 6-15 cells (100X) (0-5/hpf); Lymphocytes 34 % (21-51); MDiff Complete? YES; Mean Corpuscular HGB CONC 31.3 g/dL (32.0-36.0); Mean Corpuscular Hemoglobin 25.8 pg (27.0-31.0); Mean Corpuscular Volume 82.3 fL (78.0-98.0); Mean Platelet Volume 10.7 fL (7.4-10.4); Monocytes 13 % (0-10); Neutrophil 47 % (42-75); Platelet Count 60 thou/uL (130-400); Platelet Morphology Comment Appears Decreased; RBC Distribution Width 18.7 % (11.5-14.5); Red Blood Cell (RBC) Count 3.38 mill/uL (4.20-5.40); White Blood Cell (WBC) Count 4.4 thou/uL (4.8-10.8)
[2018-11-13] MEDS: Dextrose 5 %-0.45 % NaCl 1,000 ML IV SCH ×2 (07:21→16:59)
[2018-11-13] MEDS: Pantoprazole 40 MG VIAL IVP SCH (09:58)
[2018-11-13] MEDS: cefTRIAXone\\ROCEPHIN 1 GM in Sodium Chloride 0.9% 100 ML IVPB SCH (09:58)
[2018-11-13] MEDS: Magnesium Oxide 400 MG TAB PO SCH (10:01)
[2018-11-13] MEDS: Propranolol 10 MG TAB PO SCH (10:02)
[2018-11-13] MEDS: Multivitamin W/ Minerals 1 TAB PO SCH (10:02)
[2018-11-13] MEDS: Folic Acid 1 MG TAB PO SCH (10:02)
[2018-11-13] MEDS: carBAMazepine 200 MG TAB PO SCH ×2 (10:10→16:57)
[2018-11-13 15:57] VITALS: BP 112/63; TEMP 98.4
--- NOTE | 2018-11-17 15:28 | EKG ---
Test Reason : Blood Pressure : / mmHG Vent. Rate : 116 BPM Atrial Rate : 116 BPM P-R Int : 174 ms QRS Dur : 074 ms QT Int : 334 ms P-R-T Axes : 060 030 038 degrees QTc Int : 464 ms Sinus tachycardia Septal infarct , age undetermined Abnormal ECG Confirmed by CINTHIA BOONE MD ([id number]), school photograph editor UNA BUSCH ([id number]) on 11/17/2018 3:28:24 PM Referred By: Confirmed By:CINTHIA BOONE MD
== END 2018-11-13 18:05 | disposition home or self-care (01) ==
LOC: ERS 23:48 → 2SW 11-11 01:24
PROVIDERS: ADMIT Hospitalist; ATTEND Hospitalist
PROC: 0W9G3ZX Drainage of Peritoneal Cavity, Percutaneous Approach, Diagnostic (ICD-10-PCS; principal; 2018-11-12)
DX: K70.31 Alcoholic cirrhosis of liver with ascites (principal); F10.20 Alcohol dependence, uncomplicated; R19.5 Other fecal abnormalities; R04.0 Epistaxis; D64.9 Anemia, unspecified; I10 Essential (primary) hypertension; G89.29 Other chronic pain; M54.9 Dorsalgia, unspecified; M79.7 Fibromyalgia; G43.909 Migraine, unspecified, not intractable, without status migrainosus; K92.0 Hematemesis; Z79.899 Other long term (current) drug therapy; Y90.8 Blood alcohol level of 240 mg/100 ml or more
CPT/HCPCS: 36415; 36430; 49083; 80048; 80053; 80307; 81003; 81015; 82274; 82330; 82550; 82803; 83605; 83690; 83735; 84100; 84484; 85025; 85060; 85610; 85730; 86850; 86900; 86901; 87070; 87205; 89051; 90471; 90686; 93005; 93010; 94760; 96361; 96365; 96366; 96367; 96375; 96376; C9113; G0008; G0378; J0696; J2060; J2405; J3411; J3475; J7042; J7050; P9016; Q0162

== ENCOUNTER 2018-12-09 15:04 | Emergency (ER) | payer SELFPAY ==
[2018-12-09] MEDS ORDERED: Ketorolac Tromethamine 30 MG/ML VIAL ONE (15:09)
[2018-12-09] MEDS ORDERED: Fentanyl 100 MCG/2 ML VIAL ONE (15:09)
[2018-12-09] MEDS ORDERED: Lorazepam 2 MG/ML VIAL ONE (15:09)
--- NOTE | 2018-12-09 16:01 | RAD ---
RIGHT ANKLE 3 VIEWS: Date: 12/09/18 HISTORY: Right ankle injury. COMPARISON: 06/01/14. FINDINGS: Soft tissue swelling over the lateral malleolus. 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 There is slight inversion of the talus within the ankle mortise. Widening of the lateral tibiotalar j oint by 0.7 cm. Osteophytosis about the ankle and hindfoot. IMPRESSION: Ligamentous injury and instability of the ankle joint with slight inversion of the talus and widening of the lateral tibiotalar joint. No acute fractures are demonstrated. POS: [facility]
--- NOTE | 2018-12-09 16:04 | RAD ---
RIGHT FOOT THREE VIEWS: HISTORY: Fall with right foot pain. TECHNIQUE: AP, lateral, and oblique views of the right foot are obtained. FINDINGS: Three views of the right foot demonstrate no definite evidence of right foot fractures, subluxations, or bony lesions. IMPRESSION: Normal three views right foot. POS: [facility]
== END 2018-12-09 17:35 | disposition home or self-care (01) ==
LOC: ERS 15:04
DX: S93.401A Sprain of unspecified ligament of right ankle, initial encounter (principal); K21.9 Gastro-esophageal reflux disease without esophagitis; Z79.899 Other long term (current) drug therapy; W17.2XXA Fall into hole, initial encounter
CPT/HCPCS: 29515; 96374; 96375; J1885; J2060; J3010

== ENCOUNTER 2018-12-22 06:36 | Inpatient (IN) | payer OTHER, SELFPAY ==
[2018-12-22] MEDS ORDERED: Metoclopramide HCl 10 MG/2 ML VIAL ONE (06:50)
[2018-12-22] MEDS ORDERED: Pantoprazole 40 MG VIAL ONE ×2 (06:50→06:52)
[2018-12-22] MEDS ORDERED: Octreotide Acetate 1,250 MCG in Sodium Chloride 0.9% 250 ML 250 ML IVPB SCH ×2 (07:00→09:12)
[2018-12-22] MEDS ORDERED: Pantoprazole 80 MG, Admixture Fee 1 EACH in Sodium Chloride 0.9% 100 ML IVP SCH (07:00)
[2018-12-22 07:16] LABS: #Basophils 0.1 thou/uL (0.0-0.2); #Eosinphils 0.1 thou/uL (0.0-0.7); #Lymphocytes 1.8 thou/uL (1.20-3.40); #Monocytes 0.9 thou/uL (0.11-0.59); #Neutrophils 4.5 thou/uL (1.40-6.50); %Basophils 0.9 % (0.0-1.0); %Lymphocytes 24.7 % (21.0-51.0); %Monocytes 12.4 % (0.0-10.0); Hemoglobin 6.4 g/dL (12.0-16.0); Mean Corpuscular HGB CONC 30.9 g/dL (32.0-36.0); Mean Corpuscular Hemoglobin 24.9 pg (27.0-31.0); Mean Corpuscular Volume 80.8 fL (78.0-98.0); Platelet Count 81 thou/uL (130-400); RBC Distribution Width 20.2 % (11.5-14.5); Red Blood Cell (RBC) Count 2.57 mill/uL (4.20-5.40); White Blood Cell (WBC) Count 7.4 thou/uL (4.8-10.8)
[2018-12-22 07:20] LABS: INR-International Normal Ratio 1.9; PTT 39.5 SEC (22.9-36.1); Prothrombin Time 21.8 SEC (12.0-14.7)
[2018-12-22 07:35] LABS: ALT (SGPT) 16 U/L (8-55); AST (SGOT) 53 U/L (5-34); Albumin 2.7 g/dL (3.5-5.0); Alkaline Phosphatase 130 U/L (40-150); Anion Gap 17 mmol/L (10-20); BUN (Urea Nitrogen) 12 mg/dL (9.8-20.1); Bilirubin, Total 1.5 mg/dL (0.2-1.2); Calc. Creatinine Clearance 0 mL/min (70-130); Calcium 8.4 mg/dL (7.8-10.44); Carbon Dioxide 16 mmol/L (22-29); Chloride 107 mmol/L (98-107); Estimated GFR-MDRD Greater than 90; Globulin 3.7 g/dL (2.4-3.5); Glucose 93 mg/dL (70-105); Potassium 4.5 mmol/L (3.5-5.1); Protein, Total 6.4 g/dL (6.0-8.3); Sodium 135 mmol/L (136-145)
[2018-12-22] MEDS ORDERED: Octreotide Acetate 50 MCG/ML AMP ONE (07:39)
[2018-12-22 07:56] LABS: Base Excess-Venous -8.8 mmol/L (-2.0 to 3.0); Bicarbonate (HCO3v) 14.5 mmol/L (22.0-28.0); CO2 Tension (PvCO2) 21.7 mmHg (40.0-50.0); Calcium, Ionized 0.96 mmol/L (See Comments:); Chloride 107 mmol/L (98-107); Hemoglobin - Calc 6.9 g/dL (12.0-16.0); O2 Tension (PvO2) 61.3 mmHg (35.0-45.0); Potassium 4.5 mmol/L (3.5-5.1); Sodium 138 mmol/L (138-145); T. Carbon Dioxide 15.1 mmol/L (22.0-28.0); pH (Venous) 7.432 (7.320-7.430); vO2 Saturation-calc 92.6 % (60.0-85.0)
[2018-12-22 07:58] LABS: Iron 214 ug/dL (50-170); Iron Binding Capacity, Total 390 mcg/dL (265-497)
[2018-12-22] MEDS ORDERED: Ondansetron PF 4 MG/2 ML Vial ONE ×2 (08:02→13:17)
[2018-12-22] MEDS ORDERED: Ondansetron PF 4 MG/2 ML Vial IVP PRN (08:57)
[2018-12-22] MEDS ORDERED: Ondansetron ODT 4 MG TAB SL PRN (08:57)
[2018-12-22] MEDS ORDERED: Acetaminophen 325 MG TAB PO PRN (08:57)
[2018-12-22] MEDS ORDERED: Acetaminophen 650 MG Suppository PR PRN (09:12)
[2018-12-22] MEDS ORDERED: Eucerin (Mineral Oil/Petrolatum,White) 30 gm Jar TOP PRN (09:12)
[2018-12-22] MEDS ORDERED: Sodium Chloride 0.65% Nasal 44 ML BOT EA NARE PRN (09:12)
[2018-12-22] MEDS ORDERED: hydrALAZINE 20 MG/ML VIAL SLOW IVP PRN (09:12)
[2018-12-22] MEDS ORDERED: Bisacodyl 10 MG SUPP PR PRN (09:12)
[2018-12-22] MEDS ORDERED: Artificial Tear Sol 15 ML BOT EA EYE PRN (09:12)
--- NOTE | 2018-12-22 09:57 | HP ---
PRIMARY CARE PHYSICIAN: [facility]. REASON FOR ADMISSION: Acute upper GI bleed, anemia due to acute blood loss, and hypotension. HISTORY OF PRESENT ILLNESS: A 53-year-old female, who has underlying history of alcoholic liver cirrhosis with esophageal varices, required several times banding. She had several time admission in our hospital for upper GI bleed. This time, the patient came with exactly similar symptoms. She reports that yesterday evening she drank six packs of beer. She was feeling heart burn. She was having vague upper abdominal discomfort. During middle of night, she started throwing up blood. She had several times of vomiting. Per patient, she threw almost 1 L of fluid containing blood, which was fresh blood as well as coffee-ground. She denies any melenic stools. She was feeling dizzy, lightheaded, and very weak. She denies any fever or chills, but she was having vague abdominal discomfort. When she came to emergency room, she was tachycardic with heart rate in 133, and her blood pressure was 88/56. She was resuscitated with IV fluid and she received blood transfusion in the emergency room. After that, her heart rate reduced and blood pressure improved. Early Learning Teacher was notified from the emergency room, the patient will be admitted for close monitoring in ICU. The patient denies any NSAIDs, but she drinks alcohol almost every day. She reports that she initially agreed and she restarted drinking alcohol. She denies any constipation. She denies any altered mental status. She denies any UTI symptoms. She denies any flu-like illness. REVIEW OF SYSTEMS: CONSTITUTIONAL: Negative for weight loss or gain, ability to conduct usual activities. SKIN: Negative for rash, itching. EYES: Negative for double vision, pain. ENT/MOUTH: Negative for nose bleeding, neck stiffness, pain, tenderness. CARDIOVASCULAR: Negative for palpitations, dyspnea on exertion, orthopnea. RESPIRATORY: Negative for shortness of breath, wheezing, cough, hemoptysis, fever or night sweats. GASTROINTESTINAL: Negative for poor appetite, abdominal pain, heartburn, nausea, vomiting, constipation, or diarrhea. GENITOURINARY: Negative for urgency, frequency, dysuria, nocturia. MUSCULOSKELETAL: Negative for pain, swelling. NEUROLOGIC/PSYCHIATRIC: Negative for anxiety, depression. ALLERGY/IMMUNOLOGIC: Negative for skin rash, bleeding tendency. Please see my HPI for pertinent positives and negatives. All other review of systems reviewed and negative except as mentioned in HPI. PAST MEDICAL HISTORY: Alcoholism, chronic alcohol abuse, alcoholic liver cirrhosis, portal hypertension, esophageal varices, hypertension, chronic low back pain, peptic ulcer disease, fibromyalgia, migraine headache, polysubstance abuse. PAST PSYCHIATRIC HISTORY: Medication noncompliance. PAST SURGICAL HISTORY: Left ankle surgery, endometrial ablation, breast augmentation, tubal ligation, bladder suspension. SOCIAL HISTORY: The patient lives at home by herself. She drinks six packs of beer everyday basis. She denies any tobacco or other illicit drug abuse. FAMILY HISTORY: Positive for coronary artery disease. ALLERGIES: NO KNOWN DRUG ALLERGY. EMERGENCY ROOM COURSE: The patient has received blood transfusion, octreotide drip, Zofran, Protonix drip, IV fluid, Reglan. CURRENT HOME MEDICATIONS: 1. Tylenol #3 one or two tablets q.4 hourly p.r.n. 2. Tegretol 200 mg b.i.d. 3. Folic acid 1 mg daily. 4. Gabapentin 300 mg at bedtime. 5. Lactulose 20 g p.o. b.i.d. 6. Magnesium 400 mg p.o. daily. 7. Multivitamin 1 tablet daily. 8. Protonix 40 mg b.i.d. 9. Inderal 10 mg b.i.d. 10. Thiamine 100 mg p.o. daily. PHYSICAL EXAMINATION: VITAL SIGNS: Currently, blood pressure 88/56, pulse 133, respiratory rate 22, temperature 97.8, and saturation 97% on room air. Weight 81.6 kg. GENERAL: The patient is currently alert, awake, follows command, no obvious acute distress. HEENT: Head; normocephalic and atraumatic. Eyes; pupils are round and reactive to light. Extraocular muscle intact. ENT; oropharynx within normal limits. Pale mucous membranes. No oral lesion. No pharyngeal erythema. No exudate. NECK: Supple. No JVD. No thyromegaly. No carotid bruit. No jugular venous distention. LUNGS: Clear to auscultation without any rhonchi or rales. CARDIAC: S1 and S2 regular. Tachycardia. No murmur elicited. No gallop. No rub. ABDOMEN: Soft. Bowel sounds are present. No distention. Vague abdominal discomfort noted. No peritoneal sign. No guarding. No rigidity. No rebound. BACK: Examination unremarkable. No CVA tenderness. EXTREMITIES: Upper extremities; passive movement of all joints are normal. Lower extremity, no edema. Good distal pulsation. SKIN: No skin rash other than pallor plus, no rash. HEMATOLOGIC: No lymphadenopathy. NEUROLOGIC: Nonfocal examination. No asterixis. The patient moves all 4 limbs. Reflex is symmetrical. Sensation normal. PSYCHIATRIC: Normal affect. SIGNIFICANT LABORATORY DATA: EKG showing sinus tachycardia, nonspecific changes. CBC; WBC 7.4, hemoglobin 6.4, platelets are 81. INR 1.9. VBG; pH of 7.43, CO2 of 21.7, bicarb of 14.5. BMP; sodium 135, potassium 4.5, chloride 107, carbon dioxide 16, BUN 12, creatinine 0.50, glucose 93, calcium 8.4, lactic acid 3.9. LFT; bilirubin 1.5, AST 53, ALT 16, alkaline phosphatase 130, albumin 2.7. Iron 214. TIBC 390. ASSESSMENT/PLAN: 1. Acute hematemesis. Differential diagnosis is esophageal varices bleed given history of alcoholic cirrhosis, Snehal-Crews tear secondary to alcohol abuse, and nausea and vomiting, or peptic ulcer disease with gastritis/esophagitis. Early Learning Teacher will be consulted. The patient will be treated with Protonix drip. Empirically, we will also start with octreotide drip. We will monitor H and H. we will provide transfusional support to keep hemoglobin 7 to 8. We will monitor in CCU. 2. Hemorrhagic shock. The patient's blood pressure was low initially, responded to IV fluid resuscitation and blood transfusion. The patient will be closely monitored in ICU and provide resuscitation with fluid and blood transfusion as needed. 3. Anemia due to acute blood loss. The patient already received blood transfusion in the emergency room. We will monitor H and H every 4 hourly and we will try to keep hemoglobin between 7 to 8 and provide transfusion as needed basis. 4. History of erosive gastritis and esophagitis. The patient will be on Protonix drip. 5. History of alcoholic cirrhosis. Given history of recent GI bleed, we will prophylactically provide Rocephin 1 g q.24 hour for SBP prophylaxis. The patient will be kept on octreotide drip and then we will consider discontinuing after EGD whenever GI gives recommendation. 6. Alcoholic cirrhosis with portal hypertension. At this point, we will hold on Inderal therapy because of low blood pressure. 7. Alcoholism. We will give banana bag while in hospital. Counseling given to avoid alcohol abuse. 8. Deep venous thrombosis prophylaxis; SCD boots, no Lovenox because of bleeding. GI prophylaxis; the patient is already on Protonix drip. CODE STATUS: The patient is full code. The patient does not have any surrogate decision maker. DISPOSITION PLAN: Based on clinical course, we are expecting the patient's stay in hospital more than 2 midnights. While in hospital, Gastroenterology and Pulmonary group will be consulted for critical illness. Job ID: [id number]
--- NOTE | 2018-12-22 10:24 | CON ---
DATE OF CONSULTATION: 12/22/2018 REASON FOR CONSULTATION: Hematemesis. HISTORY OF PRESENT ILLNESS: Aicha Osorio is a 53-year-old woman seen by my GI colleague, Dr. Maciel Stewart. She has a history of cirrhosis secondary to chronic ongoing alcohol abuse. She has a history of multiple presentations with hematemesis with bleeding from Snehal-Crews tears. She has had several EGDs in the past couple of years. Her last EGD was actually performed by me during hospitalization in September. She had a Snehal-Crews tear and erosive esophagitis. She actually had a visible vessel just beyond the GE junction, which I treated endoscopically at that time. She says that she has been doing pretty well, since then avoiding alcohol for a month or two, but lately she has been drinking again. She had at least 10-12 beers last night. She woke up about 3:00 a.m. and vomited first dark red and then bright red blood. She says this was about a L of blood. She felt lightheaded and dizzy. She was brought by EMS to the ER. She was found to be in tachycardic in the 120s and initially blood pressure was 80/50. Hemoglobin was 6.4. She is getting RBC transfusion, was started on octreotide. She has not had any further hematemesis since arrival. She does remain tachycardic in the 120s. She does not have any abdominal pain, but she does continue to have some nausea. There has been no melena over the course of today. HOME MEDICATIONS: 1. Tylenol 3. 2. Folic acid. 3. Gabapentin. 4. Lactulose. 5. Magnesium. 6. Multivitamin. 7. Protonix. 8. Propranolol 10 mg b.i.d. 9. Thiamine. 10. Tegretol. PAST MEDICAL HISTORY: Alcoholic hepatitis, alcoholic cirrhosis, alcohol withdrawal, hypertension, chronic back pain, fibromyalgia, migraines, polysubstance abuse, Snehal-Crews tear with massive bleeding in September 2018, breast augmentation, tubal ligation, endometrial ablation, ankle surgery. SOCIAL HISTORY: She continues to drink alcohol, had 10-12 beers yesterday. FAMILY HISTORY: Negative for cirrhosis or GI malignancy. ALLERGIES: IODINE. PHYSICAL EXAMINATION: VITAL SIGNS: Pulse 122, blood pressure 110/60, and 99% oxygen saturation on room air. GENERAL: A 53-year-old woman, appearing chronically ill, sitting up in bed comfortably, in no acute distress. SKIN: She is a bit pale. No jaundice. No rashes were palpable. EYES: No scleral icterus. Extraocular movements intact. ENT: Mucous membranes moist. No oral lesions. LYMPH: No submandibular or supraclavicular lymphadenopathy. Thyroid nontender to palpation. HEART: Regular tachycardia. LUNGS: Clear to auscultation bilaterally. ABDOMEN: Obese. Bowel sounds are present. Soft, nontender to palpation throughout. EXTREMITIES: Trace pretibial edema bilaterally. NEUROLOGIC: Cranial nerves 2 to 12 intact bilaterally. No focal deficits. LABORATORY STUDIES: Hemoglobin 6.4, hematocrit 20.7, platelets 81. INR is 1.9. Sodium 138, potassium 4.5, BUN 12, creatinine 0.50. Lactic acid 3.9. Iron 214, TIBC 390. Total bilirubin 1.5, alkaline phosphatase 130, AST 53, ALT 16. ASSESSMENT AND PLAN: 1. Acute hematemesis, recurrent. 2. Prior history of Snehal-Crews tear. 3. Alcoholic cirrhosis, with no prior history of esophageal varices. 4. Ongoing alcohol abuse. 5. Acute blood loss anemia. This presentation is quite similar to her prior presentation in September 2018. She did have significant blood loss at that time with hemorrhagic shock, secondary to a Snehal-Crews tear with a visible vessel. I suspect this is a recurrent Snehal-Crews tear. Given her cirrhosis, always need to be concerned about the development of esophageal or gastric varices as well. She is doing pretty well with initial resuscitation, but this needs to be continued. Continue the octreotide and the PPI. We will plan for diagnostic EGD later today. Further recommendations following endoscopy. She has appropriately been started on ceftriaxone as well. Job ID: [id number]
[2018-12-22] MEDS: Multivitamins, Adult 10 ML, Folic Acid 1 MG, Thiamine HCl 100 MG in Dextrose 5 %-0.45 %... IV SCH (10:42)
[2018-12-22] MEDS: cefTRIAXone\\ROCEPHIN 1 GM in Sodium Chloride 0.9% 100 ML IVPB SCH (10:44)
[2018-12-22 10:53] VITALS: BMI 32.0
[2018-12-22] MEDS: Ondansetron PF 4 MG/2 ML Vial IVP PRN ×2 (11:09→21:14)
[2018-12-22 11:16] LABS: Hemoglobin 8.7 g/dL (12.0-16.0)
[2018-12-22 11:33] LABS: Lactic Acid 3.7 mmol/L (0.5-2.2)
[2018-12-22] MEDS ORDERED: PROPOFOL 200 MG/20 ML VIAL ONE (13:17)
[2018-12-22] MEDS ORDERED: Succinylcholine Chloride 20 MG/ML 10 ml SYRINGE FS ONE (13:17)
[2018-12-22] MEDS ORDERED: Dexamethasone 20 MG/5 ML VIAL ONE (13:17)
[2018-12-22] MEDS ORDERED: Lidocaine 1% PF 5 ML VIAL ONE (13:17)
[2018-12-22] MEDS ORDERED: Lorazepam 2 MG/ML VIAL SLOW IVP PRN (14:43)
[2018-12-22] MEDS: Sodium Chloride 0.9% 1,000 ML IV SCH ×2 (14:45→21:14)
[2018-12-22 14:58] LABS: Hemoglobin 7.8 g/dL (12.0-16.0)
[2018-12-22] MEDS: Pantoprazole 80 MG, Admixture Fee 1 EACH in Sodium Chloride 0.9% 100 ML IVPB SCH (16:22)
[2018-12-22] MEDS ORDERED: Promethazine HCl 25 MG/ML VIAL SLOW IVP PRN (16:36)
[2018-12-22] MEDS ORDERED: Ondansetron HCl/PF 4 MG/2 ML Vial IVP PRN (16:36)
[2018-12-22] MEDS ORDERED: Promethazine HCl 25 MG/ML VIAL IM PRN (16:36)
[2018-12-22] MEDS ORDERED: Fentanyl 100 MCG/2 ML VIAL ONE (16:42)
[2018-12-22] MEDS ORDERED: Midazolam HCl 2 mg/2 ml Vial ONE (16:42)
--- NOTE | 2018-12-22 17:51 | OP ---
DATE OF PROCEDURE: 12/22/2018 ATHLETIC FIELD CUSTODIAN SURGEON: None. PROCEDURE: esophagogastroduodenoscopy, diagnostic. INDICATIONS: Hematemesis and acute blood loss anemia in the context of alcoholic cirrhosis and ongoing alcohol abuse. She has a prior history of multiple presentations with Snehal-Crews tear, no history of varices in the past. MEDICATIONS: See Anesthesia record. FINDINGS: After discussion of the risks, benefits, and alternatives of the procedure, informed consent was obtained and. Witnessed pre-endoscopic cardiopulmonary examination was satisfactory. Time-out was performed before sedation was achieved. Sedation was achieved with Anesthesia assistance in the endoscopy unit. A Pentax adult upper endoscope was placed into the oropharynx and passed through the cricopharyngeus under direct visualization. The esophageal mucosa appeared normal throughout. There was no evidence of any esophageal varices just beyond the GE junction at 39 cm from the incisors, there is a Snehal-Crews tear. This has a single red spot, but there is no active bleeding from this area. There is no old blood or active bleeding anywhere in the stomach. There is no evidence of any gastric varices. The gastric mucosa. has some diffuse erythema and edema consistent with portal hypertensive gastropathy, but no other ulcerations aside from the 1 associated with her Snehal-Crews tear. The endoscope was advanced through the pylorus and into the first and second portions of the duodenum, which were also normal. The upper endoscope was completely withdrawn and the patient allowed to recover. The patient tolerated the procedure well. There were no immediate postprocedure complications. IMPRESSION: 1. Healing Snehal-Crews tear at 39 cm from the incisors, nonbleeding at this time. 2. No old blood or active bleeding on this examination. 3. Portal hypertensive gastropathy. 4. No esophageal or gastric varices. RECOMMENDATION: 1. Continue IV proton pump inhibitor. 2. Octreotide can be discontinued. 3. Clear liquid diet. If doing well tomorrow, can advance as tolerated. 4. The patient really needs to stop drinking alcohol. Job ID: [id number]
[2018-12-22 21:03] LABS: Hemoglobin 8.2 g/dL (12.0-16.0)
[2018-12-22] MEDS: Lorazepam 2 MG/ML VIAL SLOW IVP PRN (21:10)
[2018-12-23] MEDS: Lorazepam 2 MG/ML VIAL SLOW IVP PRN ×9 (00:49→23:22)
[2018-12-23 00:58] LABS: Hemoglobin 8.2 g/dL (12.0-16.0)
[2018-12-23] MEDS: Pantoprazole 80 MG, Admixture Fee 1 EACH in Sodium Chloride 0.9% 100 ML IVPB SCH ×2 (03:15→15:16)
[2018-12-23 04:19] LABS: #Lymphocytes 0.7 thou/uL (1.20-3.40); #Monocytes 0.2 thou/uL (0.11-0.59); #Neutrophils 2.1 thou/uL (1.40-6.50); %Basophils 0.4 % (0.0-1.0); %Eosinophils 0.2 % (0.0-10.0); %Lymphocytes 24.1 % (21.0-51.0); %Monocytes 5.7 % (0.0-10.0); %Neutrophils 69.6 % (42.0-75.0); Hemoglobin 7.5 g/dL (12.0-16.0); Mean Corpuscular HGB CONC 31.8 g/dL (32.0-36.0); Mean Corpuscular Hemoglobin 27.2 pg (27.0-31.0); Mean Corpuscular Volume 85.4 fL (78.0-98.0); Mean Platelet Volume 10.9 fL (7.4-10.4); Platelet Count 48 thou/uL (130-400); RBC Distribution Width 19.6 % (11.5-14.5); Red Blood Cell (RBC) Count 2.76 mill/uL (4.20-5.40)
[2018-12-23 04:29] LABS: Phosphorus 3.3 mg/dL (2.3-4.7)
[2018-12-23] MEDS: Sodium Chloride 0.9% 1,000 ML IV SCH ×2 (04:35→21:08)
[2018-12-23 04:38] LABS: ALT (SGPT) 16 U/L (8-55); AST (SGOT) 50 U/L (5-34); Albumin 2.8 g/dL (3.5-5.0); Alkaline Phosphatase 118 U/L (40-150); Anion Gap 12 mmol/L (10-20); BUN (Urea Nitrogen) 10 mg/dL (9.8-20.1); Bilirubin, Total 1.4 mg/dL (0.2-1.2); Calc. Creatinine Clearance 142 mL/min (70-130); Calcium 8.3 mg/dL (7.8-10.44); Carbon Dioxide 21 mmol/L (22-29); Chloride 106 mmol/L (98-107); Estimated GFR-MDRD Greater than 90; Globulin 3.5 g/dL (2.4-3.5); Glucose 206 mg/dL (70-105); Magnesium 1.3 mg/dL (1.6-2.6); Potassium 3.9 mmol/L (3.5-5.1); Protein, Total 6.3 g/dL (6.0-8.3); Sodium 135 mmol/L (136-145)
[2018-12-23] MEDS ORDERED: Magnesium Sulfate 3 GM in Sodium Chloride 0.9% 100 ML IVPB SCH (08:30)
--- NOTE | 2018-12-23 09:24 | PDOC.PN ---
- Subjective Encounter Start Date: 12/23/18 Encounter Start Time: 07:00 -: old records requested/rev pt is anxious and now she feels withdrawl, no further bleeding Patient seen and examined. No overnight events - Objective Resuscitation Status - Order Detail: 12/22/18 07:36 Resuscitation Status Routine Resuscitation Status: FULL: Full Resuscitation MAR Reviewed: Yes Vital Signs & Weight: Vital Signs (12 hours) Temp Pulse Ox 12/23/18 08:00 98.5 F 12/23/18 07:30 95 12/23/18 04:00 98.6 F 12/23/18 00:00 98.5 F Weight Weight 190 lb 7.67 oz Most Recent Monitor Data Heart Rate from ECG 100 NIBP 141/74 NIBP BP-Mean 96 Respiration from ECG 19 SpO2 96 I&O: 12/22/18 12/23/18 12/24/18 06:59 06:59 06:59 Intake Total 2301.5 Output Total 445 550 Balance 1856.5 -550 Result Diagrams: 12/23/18 04:03 12/23/18 04:03 EKG Reviewed by me: Yes Phys Exam - Physical Examination Constitutional: NAD HEENT: PERRLA, moist MMs, sclera anicteric Neck: no JVD, supple Respiratory: no wheezing, no rales, no rhonchi Cardiovascular: RRR, no significant murmur, no rub Gastrointestinal: soft, non-tender, no distention, positive bowel sounds Musculoskeletal: no edema, pulses present Neurological: non-focal, normal sensation Lymphatic: no nodes Psychiatric: normal affect Skin: no rash, normal turgor Dx/Plan (1) Alcohol dependence with withdrawal Code(s): F10.239 - ALCOHOL DEPENDENCE WITH WITHDRAWAL, UNSPECIFIED Status: Acute Qualifiers: Complication of substance-induced condition: uncomplicated Qualified Code(s ): F10.230 - Alcohol dependence with withdrawal, uncomplicated (2) Acute GI bleeding Code(s): K92.2 - GASTROINTESTINAL HEMORRHAGE, UNSPECIFIED Status: Acute (3) Anemia due to acute blood loss Code(s): D62 - ACUTE POSTHEMORRHAGIC ANEMIA Status: Acute (4) Hemorrhagic shock Code(s): R57.8 - OTHER SHOCK Status: Resolved (5) Alcoholic cirrhosis of liver Code(s): K70.30 - ALCOHOLIC CIRRHOSIS OF LIVER WITHOUT ASCITES Status: Chronic (6) Anxiety and depression Code(s): F41.9 - ANXIETY DISORDER, UNSPECIFIED; F32.9 - MAJOR DEPRESSIVE DISORDER, SINGLE EPISODE, UNSPECIFIED Status: Chronic (7) Chronic alcoholism Code(s): F10.20 - ALCOHOL DEPENDENCE, UNCOMPLICATED Status: Chronic (8) Coagulopathy Status: Chronic (9) Fibromyalgia Status: Chronic (10) Thrombocytopenia Code(s): D69.6 - THROMBOCYTOPENIA, UNSPECIFIED Status: Chronic Comment: Secondary to early cirrhosis (11) Hypomagnesemia Code(s): E83.42 - HYPOMAGNESEMIA Status: Acute - Plan cont current plan of care, continue antibiotics * medication reviewed as below * symptomatic treatment * continue to finish protonix drip and once over, change to protonix IV bid * finish octreotide drip, once finish she will not need to repeat one * will repeat labs tomorrow * replace magnesium * treat alcohol withdrawl * may be stable to transfer to medical. * continue banana bag * advance diet Review of Systems - Review of Systems ENT: negative: Ear Pain, Ear Discharge, Nose Pain, Nose Discharge, Nose Congestion, Mouth Pain, Mouth Swelling, Throat Pain, Throat Swelling, Other Respiratory: negative: Cough, Dry, Shortness of Breath, Hemoptysis, SOB with Excertion, Pleuritic Pain, Sputum, Wheezing Cardiovascular: negative: chest pain, palpitations, orthopnea, paroxysmal nocturnal dyspnea, edema, light headedness, other Gastrointestinal: negative: Nausea, Vomiting, Abdominal Pain, Diarrhea, Constipation, Melena, Hematochezia, Other Genitourinary: negative: Dysuria, Frequency, Incontinence, Hematuria, Retention , Other Musculoskeletal: negative: Neck Pain, Shoulder Pain, Arm Pain, Back Pain, Hand Pain, Leg Pain, Foot Pain, Other Skin: negative: Rash, Lesions, Giovanni, Bruising, Other - Medications/Allergies Allergies/Adverse Reactions: Allergies Allergy/AdvReac Type Severity Reaction Status Date / Time No Known Allergies Allergy Verified 11/11/18 03:03 Medications: Current Medications Acetaminophen (Tylenol) 650 mg SD Q4H PRN PRN Reason: Headache/Fever/Mild Pain (1-3) Albuterol/Ipratropium (Duoneb) 3 ml NEB [id number] PRN PRN Reason: SOB &/or Wheezing Artificial Tears (Tears Renewed 15ml Bottle) 2 drop EA EYE PRN PRN PRN Reason: Dry Eyes Bisacodyl (Dulcolax) 10 mg SD DAILYPRN PRN PRN Reason: Constipation Hydralazine HCl (Apresoline) 5 mg SLOW IVP Q4H PRN PRN Reason: SBP > 180 and HR < 70 Ceftriaxone Sodium 1 gm/ (Sodium Chloride) 100 mls @ 200 mls/hr IVPB Q24HR [facility] Last Admin: 12/22/18 10:44 Dose: 100 mls Octreotide Acetate 1,250 mcg/ (Sodium Chloride) 251.25 mls @ 10.05 mls/hr IVPB INF [facility] Last Admin: 12/23/18 03:15 Dose: 251.25 mls Pantoprazole Sodium 80 mg/Miscellaneous Medication 1 each/ Sodium Chloride 100 mls @ 10 mls/hr IVPB INF [facility] Last Admin: 12/23/18 03:15 Dose: 100 mls Multivitamins 10 ml/ Folic Acid 1 mg/ Thiamine HCl 100 mg / Dextrose/Sodium Chloride 1,011.2 mls @ 100 mls/hr IV Q24HR [facility] Last Admin: 12/22/18 10:42 Dose: 1,011.2 mls Sodium Chloride (Normal Saline 0.9%) 1,000 mls @ 125 mls/hr IV .Q8H [facility] Last Admin: 12/23/18 04:35 Dose: 1,000 mls Magnesium Sulfate 3 gm/ Sodium (Chloride) 106 mls @ 100 mls/hr IVPB 0830 [facility] Stop: 12/23/18 10:30 Last Admin: 12/23/18 07:57 Dose: 106 mls Lorazepam (Ativan) 1 mg SLOW IVP Q1H PRN PRN Reason: .AGITATION Last Admin: 12/23/18 07:56 Dose: 1 mg Mineral Oil/White Petrolatum (Eucerin Cream) 0 gm TOP BIDPRN PRN PRN Reason: Dry Skin Ondansetron HCl (Zofran) 4 mg IVP Q6H PRN PRN Reason: Nausea/Vomiting Last Admin: 12/22/18 21:14 Dose: 4 mg Sodium Chloride ([place] Nasal [place] 0.65%) 0 ml EA NARE QIDPRN PRN PRN Reason: Nasal Congestion Sodium Chloride (Flush - Normal Saline) 10 ml IVF PRN PRN PRN Reason: Saline Flush
[2018-12-23] MEDS ORDERED: Zolpidem Tartrate 5 MG TAB PO PRN (09:26)
[2018-12-23] MEDS ORDERED: Artificial Tears 18 DROP/0.9 ML EA EYE PRN (09:26)
[2018-12-23] MEDS ORDERED: Senokot S 8.6-50 MG TAB PO PRN (09:26)
[2018-12-23] MEDS ORDERED: Cepastat Lozenges 1 LOZ PO PRN (09:26)
[2018-12-23] MEDS ORDERED: cloNIDine 0.1 MG TAB PO PRN (09:26)
[2018-12-23] MEDS ORDERED: Loperamide HCl 2 MG CAP PO PRN (09:26)
[2018-12-23] MEDS ORDERED: Diabetic Tussin 200 MG/10 ML UDCUP PO PRN (09:26)
[2018-12-23] MEDS ORDERED: Ondansetron ODT 4 MG TAB PO PRN (09:26)
[2018-12-23] MEDS ORDERED: Calcium Carbonate 500 MG ChewTAB PO PRN (09:26)
[2018-12-23] MEDS: cefTRIAXone\\ROCEPHIN 1 GM in Sodium Chloride 0.9% 100 ML IVPB SCH (09:58)
[2018-12-23] MEDS: HYDROcodone/Acetaminophen 5/325 mg Tablet PO PRN ×3 (10:59→20:52)
[2018-12-23] MEDS: Multivitamins, Adult 10 ML, Folic Acid 1 MG, Thiamine HCl 100 MG in Dextrose 5 %-0.45 %... IV SCH (11:00)
--- NOTE | 2018-12-23 12:15 | PRG ---
DATE OF SERVICE: 12/23/2018 SUBJECTIVE: Ms. Osorio is able to be moved to the floor today. She has remained hemodynamically stable. She feels a bit weak and shaky still. She is being treated for withdrawal. She is tolerating clear liquids okay with just a little bit of epigastric discomfort. No nausea or vomiting this morning. Hemoglobin is somewhat stable down to 7.5. No overt bleeding. No further hematemesis. OBJECTIVE: VITAL SIGNS: Temperature 98.5, pulse 98, blood pressure 139/65, and 95% oxygen saturation on room air. GENERAL: No acute distress. HEART: Regular rate and rhythm. LUNGS: Clear to auscultation bilaterally. ABDOMEN: Bowel sounds present. Soft. Some mild tenderness to palpation in the epigastrium. No guarding or rebound tenderness. EXTREMITIES: No peripheral edema. LABORATORY STUDIES: WBC 3.0, hemoglobin 7.5, and platelets 48. INR 1.9. Sodium 135, potassium 3.9, BUN 10, creatinine 0.63, total bilirubin 1.4, alkaline phosphatase 118, AST 50, ALT 16, and ammonia 72. ASSESSMENT AND PLAN: 1. Snehal-Crews tear with hemorrhage, now resolved. 2. Acute blood loss anemia, stabilizing. I would have her on a twice daily oral proton pump inhibitor, and continue this on discharge. I again emphasized the importance of completely abstaining from alcohol. Give antiemetics as needed if nausea is recurrent. I think her diet can be advanced slowly as tolerated. 3. Alcoholic liver disease. She does have thrombocytopenia as well as coagulopathy from her alcoholic liver disease. Cirrhosis appears otherwise well compensated. Note, there is no history of esophageal or gastric varices. Job ID: [id number]
--- NOTE | 2018-12-23 14:34 | PRG ---
DATE OF SERVICE: 12/23/2018 SUBJECTIVE: Ms. Osorio remains stable. OBJECTIVE: VITAL SIGNS: She is afebrile. Heart rate is 100, respiratory rate is 20, oximetry is 94% on 2 L, blood pressure 129/67. LABORATORY DATA: Hemoglobin 7.5 today, it was 8.2 yesterday. IMPRESSION: 1. Anemia secondary to blood loss, combined with bone marrow suppression associated with her ongoing heavy alcohol use. 2. Cirrhosis. 3. Status post Snehal-Crews tear, who is healing on endoscopy. 4. Portal hypertensive gastropathy. She is stable to move out of the Critical Care Unit. We will sign off. Job ID: [id number] MTDD
[2018-12-24] MEDS: Pantoprazole 80 MG, Admixture Fee 1 EACH in Sodium Chloride 0.9% 100 ML IVPB SCH (00:02)
[2018-12-24] MEDS: HYDROcodone/Acetaminophen 5/325 mg Tablet PO PRN ×5 (01:08→19:27)
[2018-12-24] MEDS: Lorazepam 2 MG/ML VIAL SLOW IVP PRN ×7 (01:09→19:27)
[2018-12-24] MEDS: Sodium Chloride 0.9% 1,000 ML IV SCH (04:49)
[2018-12-24 07:48] LABS: Lactic Acid 1.5 mmol/L (0.5-2.2)
[2018-12-24 07:58] LABS: Anion Gap 13 mmol/L (10-20); BUN (Urea Nitrogen) 10 mg/dL (9.8-20.1); Calc. Creatinine Clearance 127 mL/min (70-130); Calcium 8.3 mg/dL (7.8-10.44); Carbon Dioxide 21 mmol/L (22-29); Chloride 106 mmol/L (98-107); Estimated GFR-MDRD 88; Glucose 116 mg/dL (70-105); Magnesium 1.7 mg/dL (1.6-2.6); Potassium 3.7 mmol/L (3.5-5.1); Sodium 136 mmol/L (136-145)
[2018-12-24 08:27] LABS: Hemoglobin 8.4 g/dL (12.0-16.0); Hypochromia SLIGHT = 6-15 cells (100X) (0-5/hpf); Lymphocytes 22 % (21-51); MDiff Complete? YES; Mean Corpuscular Hemoglobin 26.9 pg (27.0-31.0); Mean Corpuscular Volume 86.9 fL (78.0-98.0); Mean Platelet Volume 9.9 fL (7.4-10.4); Monocytes 14 % (0-10); Neutrophil 63 % (42-75); Platelet Count 56 thou/uL (130-400); Platelet Morphology Comment Appears Decreased; Polychromasia SLIGHT = 2-3 cells (100X) (0-2/hpf); RBC Distribution Width 20.3 % (11.5-14.5); Reactive Lymphocytes 1 % (0-10); White Blood Cell (WBC) Count 3.6 thou/uL (4.8-10.8)
[2018-12-24] MEDS: Cyanocobalamin (Vitamin B-12) 1,000 MCG TAB PO SCH (10:38)
[2018-12-24] MEDS: Folic Acid 1 MG TAB PO SCH (10:38)
[2018-12-24] MEDS: Propranolol 10 MG TAB PO SCH ×3 (10:38→20:50)
[2018-12-24] MEDS: Multivitamin W/ Minerals 1 TAB PO SCH (10:38)
[2018-12-24] MEDS: Thiamine 100 MG TAB PO SCH (10:39)
[2018-12-24] MEDS: cefTRIAXone\\ROCEPHIN 1 GM in Sodium Chloride 0.9% 100 ML IVPB SCH (10:42)
--- NOTE | 2018-12-24 10:54 | PDOC.PN ---
- Subjective Encounter Start Date: 12/24/18 Encounter Start Time: 07:20 Patient seen and examined. No new complaints. No overnight events - Objective Resuscitation Status - Order Detail: 12/22/18 07:36 Resuscitation Status Routine Resuscitation Status: FULL: Full Resuscitation MAR Reviewed: Yes Vital Signs & Weight: Vital Signs (12 hours) Temp Pulse Resp BP Pulse Ox 12/24/18 04:10 96 12/24/18 03:42 97.7 F 95 16 143/77 H 96 12/23/18 23:26 97.6 F 93 16 143/80 H 97 Weight Weight 190 lb 7.67 oz Most Recent Monitor Data Heart Rate from ECG 98 NIBP 139/65 NIBP BP-Mean 89 Respiration from ECG 18 SpO2 95 I&O: 12/23/18 12/24/18 12/25/18 06:59 06:59 06:59 Intake Total 2301.5 4055 Output Total 445 550 Balance 1856.5 3505 Result Diagrams: 12/24/18 06:56 12/24/18 06:56 Phys Exam - Physical Examination Constitutional: NAD HEENT: PERRLA, moist MMs, sclera anicteric Neck: no JVD, supple Respiratory: no wheezing, no rales, no rhonchi Cardiovascular: RRR, no significant murmur, no rub Gastrointestinal: soft, non-tender, no distention, positive bowel sounds Musculoskeletal: no edema, pulses present Neurological: non-focal, normal sensation Lymphatic: no nodes Psychiatric: normal affect Skin: no rash, normal turgor Dx/Plan (1) Alcohol dependence with withdrawal Code(s): F10.239 - ALCOHOL DEPENDENCE WITH WITHDRAWAL, UNSPECIFIED Status: Acute Qualifiers: Complication of substance-induced condition: uncomplicated Qualified Code(s ): F10.230 - Alcohol dependence with withdrawal, uncomplicated (2) Acute GI bleeding Code(s): K92.2 - GASTROINTESTINAL HEMORRHAGE, UNSPECIFIED Status: Resolved Comment: due to mellory mcdonald tear (3) Anemia due to acute blood loss Code(s): D62 - ACUTE POSTHEMORRHAGIC ANEMIA Status: Acute (4) Hemorrhagic shock Code(s): R57.8 - OTHER SHOCK Status: Resolved (5) Alcoholic cirrhosis of liver Code(s): K70.30 - ALCOHOLIC CIRRHOSIS OF LIVER WITHOUT ASCITES Status: Chronic (6) Anxiety and depression Code(s): F41.9 - ANXIETY DISORDER, UNSPECIFIED; F32.9 - MAJOR DEPRESSIVE DISORDER, SINGLE EPISODE, UNSPECIFIED Status: Chronic (7) Chronic alcoholism Code(s): F10.20 - ALCOHOL DEPENDENCE, UNCOMPLICATED Status: Chronic (8) Coagulopathy Status: Chronic (9) Fibromyalgia Status: Chronic (10) Thrombocytopenia Code(s): D69.6 - THROMBOCYTOPENIA, UNSPECIFIED Status: Chronic Comment: Secondary to early cirrhosis (11) Hypomagnesemia Code(s): E83.42 - HYPOMAGNESEMIA Status: Acute - Plan cont current plan of care * dc banana bag * dc protonix drip and octreotide drip * change to po protonix * add folic acid, thiamin, vitamin b12, and theragran * Hb stable * ambulate today with PT to see steadiness * expecting discharge tomorrow * medication reviewed as below * symptomatic treatment. Review of Systems - Review of Systems ENT: negative: Ear Pain, Ear Discharge, Nose Pain, Nose Discharge, Nose Congestion, Mouth Pain, Mouth Swelling, Throat Pain, Throat Swelling, Other Respiratory: negative: Cough, Dry, Shortness of Breath, Hemoptysis, SOB with Excertion, Pleuritic Pain, Sputum, Wheezing Cardiovascular: negative: chest pain, palpitations, orthopnea, paroxysmal nocturnal dyspnea, edema, light headedness, other Gastrointestinal: negative: Nausea, Vomiting, Abdominal Pain, Diarrhea, Constipation, Melena, Hematochezia, Other Genitourinary: negative: Dysuria, Frequency, Incontinence, Hematuria, Retention , Other Musculoskeletal: negative: Neck Pain, Shoulder Pain, Arm Pain, Back Pain, Hand Pain, Leg Pain, Foot Pain, Other - Medications/Allergies Allergies/Adverse Reactions: Allergies Allergy/AdvReac Type Severity Reaction Status Date / Time No Known Allergies Allergy Verified 11/11/18 03:03 Medications: Current Medications Acetaminophen (Tylenol) 650 mg [place] Q4H PRN PRN Reason: Headache/Fever/Mild Pain (1-3) Hydrocodone Bitart/Acetaminophen ([place] 5/325) 1 tab PO Q4H PRN PRN Reason: Moderate Pain (4-6) Last Admin: 12/24/18 10:37 Dose: 1 tab Albuterol/Ipratropium (Duoneb) 3 ml NEB [id number] PRN PRN Reason: SOB &/or Wheezing Artificial Tears (Tears Naturale) 2 drop EA EYE PRN PRN PRN Reason: Dry Eyes Bisacodyl (Dulcolax) 10 mg [place] DAILYPRN PRN PRN Reason: Constipation Calcium Carbonate (Tums) 1,000 mg PO Q4H PRN PRN Reason: Heartburn or Indigestion Clonidine (Catapres) 0.1 mg PO Q4H PRN PRN Reason: SBP GREATER THAN 160 Cyanocobalamin (Vitamin B-12) 1,000 mcg PO DAILY [facility] Last Admin: 12/24/18 10:38 Dose: 1,000 mcg Folic Acid (Folvite) 1 mg PO DAILY [facility] Last Admin: 12/24/18 10:38 Dose: 1 mg Guaifenesin (Robitussin Sf) 200 mg PO Q4H PRN PRN Reason: Cough Hydralazine HCl (Apresoline) 5 mg SLOW IVP Q4H PRN PRN Reason: SBP > 180 and HR < 70 Ceftriaxone Sodium 1 gm/ (Sodium Chloride) 100 mls @ 200 mls/hr IVPB Q24HR [facility] Last Admin: 12/24/18 10:42 Dose: 100 mls Iron/Minerals/Multivitamins (Theragran M) 1 tab PO DAILY [facility] Last Admin: 12/24/18 10:38 Dose: 1 tab Loperamide HCl (Imodium) 2 mg PO PRN PRN PRN Reason: Diarrhea/Loose Stools Lorazepam (Ativan) 1 mg SLOW IVP Q1H PRN PRN Reason: .AGITATION Last Admin: 12/24/18 04:43 Dose: 1 mg Mineral Oil/White Petrolatum (Eucerin Cream) 0 gm TOP BIDPRN PRN PRN Reason: Dry Skin Ondansetron HCl (Zofran) 4 mg IVP Q6H PRN PRN Reason: Nausea/Vomiting Last Admin: 12/22/18 21:14 Dose: 4 mg Ondansetron HCl (Zofran Odt) 4 mg PO Q6H PRN PRN Reason: Nausea/Vomiting Pantoprazole Sodium (Protonix) 40 mg PO BID [facility] Last Admin: 12/24/18 10:38 Dose: 40 mg Propranolol HCl (Inderal) 10 mg PO TID [facility] Last Admin: 12/24/18 10:38 Dose: 10 mg Senna/Docusate Sodium (Senokot S) 2 tab PO BID PRN PRN Reason: Constipation Sodium Chloride ([place] Nasal [place] 0.65%) 0 ml EA NARE QIDPRN PRN PRN Reason: Nasal Congestion Sodium Chloride (Flush - Normal Saline) 10 ml IVF PRN PRN PRN Reason: Saline Flush Thiamine HCl (Thiamine) 100 mg PO DAILY [facility] Last Admin: 12/24/18 10:39 Dose: 100 mg Throat Lozenges (Cepastat Lozenges) 1 luis a PO Q2H PRN PRN Reason: Sore Throat Zolpidem Tartrate (Ambien) 5 mg PO HSPRN PRN PRN Reason: Insomnia
--- NOTE | 2018-12-24 19:36 | PRG ---
DATE OF SERVICE: 12/24/2018 SUBJECTIVE: Ms. Osorio is a little bit confused. She is on the phone talking to family at home. She is crying a little bit. She states her had a stroke. She has had no further bleeding. She is tolerating a full liquid diet. OBJECTIVE: VITAL SIGNS: Temperature 97.7, pulse 87, and blood pressure 155/77. LUNGS: Clear. HEART: Regular rhythm. ABDOMEN: Soft and nontender. LABORATORY DATA: White count 3.6, hemoglobin 8.4, platelet count 56,000. INR 1.9 on 12/22. BUN and creatinine are 10 and 0.7. Sodium 136, potassium 3.7, phosphorus 3.3 yesterday, yesterday bilirubin was 1.4, AST was 50, ALT was 16. ASSESSMENT: 1. Alcoholic liver disease. 2. Gastrointestinal bleed from [place] tear. No active bleeding. Plan for endoscopy. 3. Gastrointestinal hemorrhage secondary to retching, resolved. RECOMMENDATIONS: 1. Continue multivitamin thiamine, folate daily. 2. Alcohol abstinence. 3. Continue to treat withdrawals aggressively. Job ID: [id number]
--- NOTE | 2018-12-24 22:48 | RAD ---
LEFT KNEE FOUR VIEW: History: Fall. Comparison: None. FINDINGS: Mild circumferential soft tissue swelling. No acute displaced fracture or malalignment. Patella is in tact. No significant joint effusion. IMPRESSION: Soft tissue swelling. No acute fracture. POS: KHLOE
--- NOTE | 2018-12-24 22:55 | RAD ---
RIGHT KNEE FOUR VIEWS: History: Fall. Comparison: None. FINDINGS: No acute displaced fracture or malalignment. Mild prepatellar and prevertebral soft tissue swelling. No significant joint effusion. IMPRESSION: Soft tissue swelling without acute fracture or malalignment appreciated. POS: DAMON
--- NOTE | 2018-12-24 23:18 | RAD ---
LEFT ELBOW FOUR VIEWS: History: Fall. Comparison: None. FINDINGS: There is small joint effusion. No acute displaced fracture is appreciated. The radial head and neck a ppear to be intact. Minimal degenerative changes. IMPRESSION: Small joint effusion, somewhat greater than expected for the amount of very limited degenerative hall ges. Nondisplaced impaction fracture of the radial head is a possibility. Consider conservative manag ement and follow up radiographs. POS: KHLOE
[2018-12-25] MEDS: HYDROcodone/Acetaminophen 5/325 mg Tablet PO PRN ×5 (00:05→22:24)
[2018-12-25] MEDS: Lorazepam 2 MG/ML VIAL SLOW IVP PRN ×7 (00:05→22:26)
[2018-12-25 04:53] LABS: #Eosinphils 0.1 thou/uL (0.0-0.7); #Lymphocytes 1.7 thou/uL (1.20-3.40); #Monocytes 0.7 thou/uL (0.11-0.59); #Neutrophils 2.7 thou/uL (1.40-6.50); %Basophils 0.7 % (0.0-1.0); %Eosinophils 2.6 % (0.0-10.0); %Lymphocytes 32.3 % (21.0-51.0); %Monocytes 13.6 % (0.0-10.0); %Neutrophils 50.9 % (42.0-75.0); Hemoglobin 7.3 g/dL (12.0-16.0); Mean Corpuscular HGB CONC 31.4 g/dL (32.0-36.0); Mean Corpuscular Hemoglobin 27.2 pg (27.0-31.0); Mean Corpuscular Volume 86.8 fL (78.0-98.0); Mean Platelet Volume 9.7 fL (7.4-10.4); Platelet Count 62 thou/uL (130-400); RBC Distribution Width 20.2 % (11.5-14.5); Red Blood Cell (RBC) Count 2.68 mill/uL (4.20-5.40); White Blood Cell (WBC) Count 5.2 thou/uL (4.8-10.8)
[2018-12-25 05:09] LABS: Anion Gap 11 mmol/L (10-20); BUN (Urea Nitrogen) 10 mg/dL (9.8-20.1); Calc. Creatinine Clearance 132 mL/min (70-130); Calcium 8.3 mg/dL (7.8-10.44); Carbon Dioxide 25 mmol/L (22-29); Chloride 105 mmol/L (98-107); Estimated GFR-MDRD Greater than 90; Glucose 108 mg/dL (70-105); Potassium 3.5 mmol/L (3.5-5.1); Sodium 137 mmol/L (136-145)
[2018-12-25] MEDS: Multivitamin W/ Minerals 1 TAB PO SCH (10:12)
[2018-12-25] MEDS: Thiamine 100 MG TAB PO SCH (10:12)
[2018-12-25] MEDS: Cyanocobalamin (Vitamin B-12) 1,000 MCG TAB PO SCH (10:12)
[2018-12-25] MEDS: Folic Acid 1 MG TAB PO SCH (10:12)
[2018-12-25] MEDS: Propranolol 10 MG TAB PO SCH ×3 (10:14→20:14)
--- NOTE | 2018-12-25 11:52 | PDOC.PN ---
- Subjective Encounter Start Date: 12/25/18 Encounter Start Time: 07:10 Patient seen and examined. No new complaints. No overnight events - Objective Resuscitation Status - Order Detail: 12/22/18 07:36 Resuscitation Status Routine Resuscitation Status: FULL: Full Resuscitation MAR Reviewed: Yes Vital Signs & Weight: Vital Signs (12 hours) Temp Pulse Resp BP Pulse Ox 12/25/18 08:36 97.5 F L 70 16 125/70 97 12/25/18 03:52 98.2 F 83 16 132/74 95 12/25/18 03:19 97 12/24/18 23:58 97.8 F 75 16 150/80 H 97 Weight Weight 190 lb 7.67 oz Most Recent Monitor Data Heart Rate from ECG 98 NIBP 139/65 NIBP BP-Mean 89 Respiration from ECG 18 SpO2 95 I&O: 12/24/18 12/25/18 12/26/18 06:59 06:59 06:59 Intake Total 4055 900 720 Output Total 550 Balance 3505 900 720 Result Diagrams: 12/25/18 04:33 12/25/18 04:33 Radiology Reviewed by me: Yes (xray reviewed) Phys Exam - Physical Examination Constitutional: NAD HEENT: PERRLA, moist MMs, sclera anicteric Neck: no JVD, supple Respiratory: no wheezing, no rales, no rhonchi Cardiovascular: RRR, no significant murmur, no rub Gastrointestinal: soft, non-tender, no distention, positive bowel sounds Musculoskeletal: no edema, pulses present Neurological: non-focal, normal sensation Lymphatic: no nodes Psychiatric: normal affect Skin: no rash, normal turgor Dx/Plan (1) Alcohol dependence with withdrawal Code(s): F10.239 - ALCOHOL DEPENDENCE WITH WITHDRAWAL, UNSPECIFIED Status: Acute Qualifiers: Complication of substance-induced condition: uncomplicated Qualified Code(s ): F10.230 - Alcohol dependence with withdrawal, uncomplicated (2) Acute GI bleeding Code(s): K92.2 - GASTROINTESTINAL HEMORRHAGE, UNSPECIFIED Status: Resolved Comment: due to mellory mcdonald tear (3) Anemia due to acute blood loss Code(s): D62 - ACUTE POSTHEMORRHAGIC ANEMIA Status: Acute (4) Hemorrhagic shock Code(s): R57.8 - OTHER SHOCK Status: Resolved (5) Alcoholic cirrhosis of liver Code(s): K70.30 - ALCOHOLIC CIRRHOSIS OF LIVER WITHOUT ASCITES Status: Chronic (6) Anxiety and depression Code(s): F41.9 - ANXIETY DISORDER, UNSPECIFIED; F32.9 - MAJOR DEPRESSIVE DISORDER, SINGLE EPISODE, UNSPECIFIED Status: Chronic (7) Chronic alcoholism Code(s): F10.20 - ALCOHOL DEPENDENCE, UNCOMPLICATED Status: Chronic (8) Coagulopathy Status: Chronic (9) Fibromyalgia Status: Chronic (10) Thrombocytopenia Code(s): D69.6 - THROMBOCYTOPENIA, UNSPECIFIED Status: Chronic Comment: Secondary to early cirrhosis (11) Hypomagnesemia Code(s): E83.42 - HYPOMAGNESEMIA Status: Acute - Plan cont current plan of care * ashley lara * based on her level of unsteadiness, she will need placement * she lives with her who is in hospital admitted, she has no support at home * medication reviewed as below * symptomatic treatment. Review of Systems - Review of Systems ENT: negative: Ear Pain, Ear Discharge, Nose Pain, Nose Discharge, Nose Congestion, Mouth Pain, Mouth Swelling, Throat Pain, Throat Swelling, Other Respiratory: negative: Cough, Dry, Shortness of Breath, Hemoptysis, SOB with Excertion, Pleuritic Pain, Sputum, Wheezing Cardiovascular: negative: chest pain, palpitations, orthopnea, paroxysmal nocturnal dyspnea, edema, light headedness, other Gastrointestinal: negative: Nausea, Vomiting, Abdominal Pain, Diarrhea, Constipation, Melena, Hematochezia, Other Genitourinary: negative: Dysuria, Frequency, Incontinence, Hematuria, Retention , Other Musculoskeletal: negative: Neck Pain, Shoulder Pain, Arm Pain, Back Pain, Hand Pain, Leg Pain, Foot Pain, Other - Medications/Allergies Allergies/Adverse Reactions: Allergies Allergy/AdvReac Type Severity Reaction Status Date / Time No Known Allergies Allergy Verified 11/11/18 03:03 Medications: Current Medications Acetaminophen (Tylenol) 650 mg IN Q4H PRN PRN Reason: Headache/Fever/Mild Pain (1-3) Hydrocodone Bitart/Acetaminophen ([place] 5/325) 1 tab PO Q4H PRN PRN Reason: Moderate Pain (4-6) Last Admin: 12/25/18 06:03 Dose: 1 tab Albuterol/Ipratropium (Duoneb) 3 ml NEB [id number] PRN PRN Reason: SOB &/or Wheezing Artificial Tears (Tears Naturale) 2 drop EA EYE PRN PRN PRN Reason: Dry Eyes Bisacodyl (Dulcolax) 10 mg IN DAILYPRN PRN PRN Reason: Constipation Calcium Carbonate (Tums) 1,000 mg PO Q4H PRN PRN Reason: Heartburn or Indigestion Clonidine (Catapres) 0.1 mg PO Q4H PRN PRN Reason: SBP GREATER THAN 160 Cyanocobalamin (Vitamin B-12) 1,000 mcg PO DAILY [facility] Last Admin: 12/25/18 10:12 Dose: 1,000 mcg Folic Acid (Folvite) 1 mg PO DAILY [facility] Last Admin: 12/25/18 10:12 Dose: 1 mg Guaifenesin (Robitussin Sf) 200 mg PO Q4H PRN PRN Reason: Cough Hydralazine HCl (Apresoline) 5 mg SLOW IVP Q4H PRN PRN Reason: SBP > 180 and HR < 70 Ceftriaxone Sodium 1 gm/ (Sodium Chloride) 100 mls @ 200 mls/hr IVPB Q24HR [facility] Last Admin: 12/24/18 10:42 Dose: 100 mls Iron/Minerals/Multivitamins (Theragran M) 1 tab PO DAILY [facility] Last Admin: 12/25/18 10:12 Dose: 1 tab Loperamide HCl (Imodium) 2 mg PO PRN PRN PRN Reason: Diarrhea/Loose Stools Lorazepam (Ativan) 1 mg SLOW IVP Q1H PRN PRN Reason: .AGITATION Last Admin: 12/25/18 06:02 Dose: 1 mg Mineral Oil/White Petrolatum (Eucerin Cream) 0 gm TOP BIDPRN PRN PRN Reason: Dry Skin Ondansetron HCl (Zofran) 4 mg IVP Q6H PRN PRN Reason: Nausea/Vomiting Last Admin: 12/22/18 21:14 Dose: 4 mg Ondansetron HCl (Zofran Odt) 4 mg PO Q6H PRN PRN Reason: Nausea/Vomiting Pantoprazole Sodium (Protonix) 40 mg PO BID [facility] Last Admin: 12/25/18 10:12 Dose: 40 mg Propranolol HCl (Inderal) 10 mg PO TID [facility] Last Admin: 12/25/18 10:14 Dose: 10 mg Senna/Docusate Sodium (Senokot S) 2 tab PO BID PRN PRN Reason: Constipation Sodium Chloride ([place] Nasal [place] 0.65%) 0 ml EA NARE QIDPRN PRN PRN Reason: Nasal Congestion Sodium Chloride (Flush - Normal Saline) 10 ml IVF PRN PRN PRN Reason: Saline Flush Last Admin: 12/24/18 11:59 Dose: 10 ml Thiamine HCl (Thiamine) 100 mg PO DAILY [facility] Last Admin: 12/25/18 10:12 Dose: 100 mg Throat Lozenges (Cepastat Lozenges) 1 luis a PO Q2H PRN PRN Reason: Sore Throat Zolpidem Tartrate (Ambien) 5 mg PO HSPRN PRN PRN Reason: Insomnia
[2018-12-25] MEDS: cefTRIAXone\\ROCEPHIN 1 GM in Sodium Chloride 0.9% 100 ML IVPB SCH (13:00)
[2018-12-26] MEDS: Lorazepam 2 MG/ML VIAL SLOW IVP PRN ×3 (00:06→09:57)
[2018-12-26] MEDS: HYDROcodone/Acetaminophen 5/325 mg Tablet PO PRN ×3 (02:55→21:21)
[2018-12-26] MEDS: Folic Acid 1 MG TAB PO SCH (09:56)
[2018-12-26] MEDS: Cyanocobalamin (Vitamin B-12) 1,000 MCG TAB PO SCH (09:57)
[2018-12-26] MEDS: Thiamine 100 MG TAB PO SCH (09:57)
[2018-12-26] MEDS: Multivitamin W/ Minerals 1 TAB PO SCH (09:57)
[2018-12-26] MEDS: Propranolol 10 MG TAB PO SCH ×3 (09:57→21:20)
[2018-12-26 10:03] VITALS: BP 121/56; TEMP 98.3
--- NOTE | 2018-12-26 10:41 | PDOC.PN ---
- Subjective Encounter Start Date: 12/26/18 Encounter Start Time: 07:10 Patient seen and examined. No new complaints. No overnight events - Objective Resuscitation Status - Order Detail: 12/22/18 07:36 Resuscitation Status Routine Resuscitation Status: FULL: Full Resuscitation MAR Reviewed: Yes Vital Signs & Weight: Vital Signs (12 hours) Temp Pulse Resp BP Pulse Ox 12/26/18 10:00 98.3 F 81 18 121/56 L 98 12/26/18 03:19 98.1 F 75 16 103/67 97 12/25/18 23:59 98.6 F 72 16 122/66 97 Weight Weight 190 lb 7.67 oz Most Recent Monitor Data Heart Rate from ECG 98 NIBP 139/65 NIBP BP-Mean 89 Respiration from ECG 18 SpO2 95 I&O: 12/25/18 12/26/18 12/27/18 06:59 06:59 06:59 Intake Total 900 1420 Balance 900 1420 Result Diagrams: 12/25/18 04:33 12/25/18 04:33 Phys Exam - Physical Examination Constitutional: NAD HEENT: PERRLA, moist MMs, sclera anicteric Neck: no JVD, supple Respiratory: no wheezing, no rales, no rhonchi Cardiovascular: RRR, no significant murmur, no rub Gastrointestinal: soft, non-tender, no distention, positive bowel sounds Musculoskeletal: no edema, pulses present Neurological: non-focal, normal sensation Lymphatic: no nodes Psychiatric: normal affect Skin: no rash, normal turgor Dx/Plan (1) Alcohol dependence with withdrawal Code(s): F10.239 - ALCOHOL DEPENDENCE WITH WITHDRAWAL, UNSPECIFIED Status: Acute Qualifiers: Complication of substance-induced condition: uncomplicated Qualified Code(s ): F10.230 - Alcohol dependence with withdrawal, uncomplicated (2) Acute GI bleeding Code(s): K92.2 - GASTROINTESTINAL HEMORRHAGE, UNSPECIFIED Status: Resolved Comment: due to mellory mcdonald tear (3) Anemia due to acute blood loss Code(s): D62 - ACUTE POSTHEMORRHAGIC ANEMIA Status: Acute (4) Hemorrhagic shock Code(s): R57.8 - OTHER SHOCK Status: Resolved (5) Alcoholic cirrhosis of liver Code(s): K70.30 - ALCOHOLIC CIRRHOSIS OF LIVER WITHOUT ASCITES Status: Chronic (6) Anxiety and depression Code(s): F41.9 - ANXIETY DISORDER, UNSPECIFIED; F32.9 - MAJOR DEPRESSIVE DISORDER, SINGLE EPISODE, UNSPECIFIED Status: Chronic (7) Chronic alcoholism Code(s): F10.20 - ALCOHOL DEPENDENCE, UNCOMPLICATED Status: Chronic (8) Coagulopathy Status: Chronic (9) Fibromyalgia Status: Chronic (10) Thrombocytopenia Code(s): D69.6 - THROMBOCYTOPENIA, UNSPECIFIED Status: Chronic Comment: Secondary to early cirrhosis (11) Hypomagnesemia Code(s): E83.42 - HYPOMAGNESEMIA Status: Acute - Plan cont current plan of care * change ativan PO prn * check cbc * medication reviewed as below * symptomatic treatment * placement if possible, otherwise home tomorrow. Review of Systems - Review of Systems ENT: negative: Ear Pain, Ear Discharge, Nose Pain, Nose Discharge, Nose Congestion, Mouth Pain, Mouth Swelling, Throat Pain, Throat Swelling, Other Respiratory: negative: Cough, Dry, Shortness of Breath, Hemoptysis, SOB with Excertion, Pleuritic Pain, Sputum, Wheezing Cardiovascular: negative: chest pain, palpitations, orthopnea, paroxysmal nocturnal dyspnea, edema, light headedness, other Gastrointestinal: negative: Nausea, Vomiting, Abdominal Pain, Diarrhea, Constipation, Melena, Hematochezia, Other Genitourinary: negative: Dysuria, Frequency, Incontinence, Hematuria, Retention , Other Musculoskeletal: negative: Neck Pain, Shoulder Pain, Arm Pain, Back Pain, Hand Pain, Leg Pain, Foot Pain, Other - Medications/Allergies Allergies/Adverse Reactions: Allergies Allergy/AdvReac Type Severity Reaction Status Date / Time No Known Allergies Allergy Verified 11/11/18 03:03 Medications: Current Medications Acetaminophen (Tylenol) 650 mg [place] Q4H PRN PRN Reason: Headache/Fever/Mild Pain (1-3) Hydrocodone Bitart/Acetaminophen ([place] 5/325) 1 tab PO Q4H PRN PRN Reason: Moderate Pain (4-6) Last Admin: 12/26/18 09:56 Dose: 1 tab Albuterol/Ipratropium (Duoneb) 3 ml NEB [id number] PRN PRN Reason: SOB &/or Wheezing Artificial Tears (Tears Naturale) 2 drop EA EYE PRN PRN PRN Reason: Dry Eyes Bisacodyl (Dulcolax) 10 mg [place] DAILYPRN PRN PRN Reason: Constipation Calcium Carbonate (Tums) 1,000 mg PO Q4H PRN PRN Reason: Heartburn or Indigestion Clonidine (Catapres) 0.1 mg PO Q4H PRN PRN Reason: SBP GREATER THAN 160 Cyanocobalamin (Vitamin B-12) 1,000 mcg PO DAILY [facility] Last Admin: 12/26/18 09:57 Dose: 1,000 mcg Folic Acid (Folvite) 1 mg PO DAILY [facility] Last Admin: 12/26/18 09:56 Dose: 1 mg Guaifenesin (Robitussin Sf) 200 mg PO Q4H PRN PRN Reason: Cough Hydralazine HCl (Apresoline) 5 mg SLOW IVP Q4H PRN PRN Reason: SBP > 180 and HR < 70 Iron/Minerals/Multivitamins (Theragran M) 1 tab PO DAILY [facility] Last Admin: 12/26/18 09:57 Dose: 1 tab Loperamide HCl (Imodium) 2 mg PO PRN PRN PRN Reason: Diarrhea/Loose Stools Lorazepam (Ativan) 1 mg SLOW IVP Q1H PRN PRN Reason: .AGITATION Last Admin: 12/26/18 09:57 Dose: 1 mg Lorazepam (Ativan) 1 mg PO Q4H PRN PRN Reason: Anxiety/Agitation Mineral Oil/White Petrolatum (Eucerin Cream) 0 gm TOP BIDPRN PRN PRN Reason: Dry Skin Ondansetron HCl (Zofran) 4 mg IVP Q6H PRN PRN Reason: Nausea/Vomiting Last Admin: 12/22/18 21:14 Dose: 4 mg Ondansetron HCl (Zofran Odt) 4 mg PO Q6H PRN PRN Reason: Nausea/Vomiting Pantoprazole Sodium (Protonix) 40 mg PO BID [facility] Last Admin: 12/26/18 09:57 Dose: 40 mg Propranolol HCl (Inderal) 10 mg PO TID [facility] Last Admin: 12/26/18 09:57 Dose: 10 mg Senna/Docusate Sodium (Senokot S) 2 tab PO BID PRN PRN Reason: Constipation Sodium Chloride ([place] Nasal [place] 0.65%) 0 ml EA NARE QIDPRN PRN PRN Reason: Nasal Congestion Sodium Chloride (Flush - Normal Saline) 10 ml IVF PRN PRN PRN Reason: Saline Flush Last Admin: 12/26/18 09:57 Dose: 10 ml Thiamine HCl (Thiamine) 100 mg PO DAILY [facility] Last Admin: 12/26/18 09:57 Dose: 100 mg Throat Lozenges (Cepastat Lozenges) 1 luis a PO Q2H PRN PRN Reason: Sore Throat Zolpidem Tartrate (Ambien) 5 mg PO HSPRN PRN PRN Reason: Insomnia
[2018-12-26 11:07] LABS: Hemoglobin 7.4 g/dL (12.0-16.0); Mean Corpuscular HGB CONC 31.1 g/dL (32.0-36.0); Mean Corpuscular Hemoglobin 26.8 pg (27.0-31.0); Mean Corpuscular Volume 86.2 fL (78.0-98.0); Mean Platelet Volume 9.4 fL (7.4-10.4); Platelet Count 78 thou/uL (130-400); RBC Distribution Width 20.6 % (11.5-14.5); Red Blood Cell (RBC) Count 2.75 mill/uL (4.20-5.40)
[2018-12-26 12:11] LABS: Eosinophils 3 % (0-10); Hypochromia SLIGHT = 6-15 cells (100X) (0-5/hpf); Lymphocytes 51 % (21-51); MDiff Complete? YES; Monocytes 8 % (0-10); Neutrophil 38 % (42-75); Platelet Morphology Comment Appears Decreased; Polychromasia SLIGHT = 2-3 cells (100X) (0-2/hpf)
[2018-12-26] MEDS: Lorazepam 1 MG TAB PO PRN ×2 (18:19→21:20)
[2018-12-27] MEDS: HYDROcodone/Acetaminophen 5/325 mg Tablet PO PRN ×2 (01:19→08:48)
[2018-12-27] MEDS: Lorazepam 1 MG TAB PO PRN ×2 (01:20→08:49)
[2018-12-27] MEDS: Thiamine 100 MG TAB PO SCH (08:48)
[2018-12-27] MEDS: Folic Acid 1 MG TAB PO SCH (08:48)
[2018-12-27] MEDS: Multivitamin W/ Minerals 1 TAB PO SCH (08:48)
[2018-12-27] MEDS: Cyanocobalamin (Vitamin B-12) 1,000 MCG TAB PO SCH (08:49)
[2018-12-27] MEDS: Propranolol 10 MG TAB PO SCH (08:49)
--- NOTE | 2018-12-27 09:40 | PDOC.PN ---
- Subjective Encounter Start Date: 12/27/18 Encounter Start Time: 07:20 Patient seen and examined. No new complaints. No overnight events - Objective Resuscitation Status - Order Detail: 12/22/18 07:36 Resuscitation Status Routine Resuscitation Status: FULL: Full Resuscitation MAR Reviewed: Yes Vital Signs & Weight: Weight Weight 190 lb 7.67 oz Most Recent Monitor Data Heart Rate from ECG 98 NIBP 139/65 NIBP BP-Mean 89 Respiration from ECG 18 SpO2 95 I&O: 12/26/18 12/27/18 12/28/18 06:59 06:59 06:59 Intake Total 1420 2200 Balance 1420 2200 Result Diagrams: 12/26/18 10:54 12/25/18 04:33 Phys Exam - Physical Examination Constitutional: NAD HEENT: PERRLA, moist MMs, sclera anicteric Neck: no JVD, supple Respiratory: no wheezing, no rales, no rhonchi Cardiovascular: RRR, no significant murmur, no rub Gastrointestinal: soft, non-tender, no distention, positive bowel sounds Musculoskeletal: no edema, pulses present Neurological: non-focal, normal sensation, moves all 4 limbs Lymphatic: no nodes Psychiatric: normal affect, A&O x 3 Skin: no rash, normal turgor Dx/Plan (1) Alcohol dependence with withdrawal Code(s): F10.239 - ALCOHOL DEPENDENCE WITH WITHDRAWAL, UNSPECIFIED Status: Acute Qualifiers: Complication of substance-induced condition: uncomplicated Qualified Code(s ): F10.230 - Alcohol dependence with withdrawal, uncomplicated (2) Acute GI bleeding Code(s): K92.2 - GASTROINTESTINAL HEMORRHAGE, UNSPECIFIED Status: Resolved Comment: due to mellory mcdonald tear (3) Anemia due to acute blood loss Code(s): D62 - ACUTE POSTHEMORRHAGIC ANEMIA Status: Acute (4) Hemorrhagic shock Code(s): R57.8 - OTHER SHOCK Status: Resolved (5) Alcoholic cirrhosis of liver Code(s): K70.30 - ALCOHOLIC CIRRHOSIS OF LIVER WITHOUT ASCITES Status: Chronic (6) Anxiety and depression Code(s): F41.9 - ANXIETY DISORDER, UNSPECIFIED; F32.9 - MAJOR DEPRESSIVE DISORDER, SINGLE EPISODE, UNSPECIFIED Status: Chronic (7) Chronic alcoholism Code(s): F10.20 - ALCOHOL DEPENDENCE, UNCOMPLICATED Status: Chronic (8) Coagulopathy Status: Chronic (9) Fibromyalgia Status: Chronic (10) Thrombocytopenia Code(s): D69.6 - THROMBOCYTOPENIA, UNSPECIFIED Status: Chronic Comment: Secondary to early cirrhosis (11) Hypomagnesemia Code(s): E83.42 - HYPOMAGNESEMIA Status: Acute - Plan cont current plan of care * medication reviewed as below * symptomatic treatment * see discharge wesley. Review of Systems - Review of Systems ENT: negative: Ear Pain, Ear Discharge, Nose Pain, Nose Discharge, Nose Congestion, Mouth Pain, Mouth Swelling, Throat Pain, Throat Swelling, Other Respiratory: negative: Cough, Dry, Shortness of Breath, Hemoptysis, SOB with Excertion, Pleuritic Pain, Sputum, Wheezing Cardiovascular: negative: chest pain, palpitations, orthopnea, paroxysmal nocturnal dyspnea, edema, light headedness, other Gastrointestinal: negative: Nausea, Vomiting, Abdominal Pain, Diarrhea, Constipation, Melena, Hematochezia, Other Genitourinary: negative: Dysuria, Frequency, Incontinence, Hematuria, Retention , Other Musculoskeletal: negative: Neck Pain, Shoulder Pain, Arm Pain, Back Pain, Hand Pain, Leg Pain, Foot Pain, Other - Medications/Allergies Allergies/Adverse Reactions: Allergies Allergy/AdvReac Type Severity Reaction Status Date / Time No Known Allergies Allergy Verified 11/11/18 03:03 Medications: Current Medications Acetaminophen (Tylenol) 650 mg SC Q4H PRN PRN Reason: Headache/Fever/Mild Pain (1-3) Hydrocodone Bitart/Acetaminophen ([place] 5/325) 1 tab PO Q4H PRN PRN Reason: Moderate Pain (4-6) Last Admin: 12/27/18 08:48 Dose: 1 tab Albuterol/Ipratropium (Duoneb) 3 ml NEB [id number] PRN PRN Reason: SOB &/or Wheezing Artificial Tears (Tears Naturale) 2 drop EA EYE PRN PRN PRN Reason: Dry Eyes Bisacodyl (Dulcolax) 10 mg SC DAILYPRN PRN PRN Reason: Constipation Calcium Carbonate (Tums) 1,000 mg PO Q4H PRN PRN Reason: Heartburn or Indigestion Clonidine (Catapres) 0.1 mg PO Q4H PRN PRN Reason: SBP GREATER THAN 160 Cyanocobalamin (Vitamin B-12) 1,000 mcg PO DAILY [facility] Last Admin: 12/27/18 08:49 Dose: 1,000 mcg Folic Acid (Folvite) 1 mg PO DAILY [facility] Last Admin: 12/27/18 08:48 Dose: 1 mg Guaifenesin (Robitussin Sf) 200 mg PO Q4H PRN PRN Reason: Cough Hydralazine HCl (Apresoline) 5 mg SLOW IVP Q4H PRN PRN Reason: SBP > 180 and HR < 70 Iron/Minerals/Multivitamins (Theragran M) 1 tab PO DAILY [facility] Last Admin: 12/27/18 08:48 Dose: 1 tab Loperamide HCl (Imodium) 2 mg PO PRN PRN PRN Reason: Diarrhea/Loose Stools Lorazepam (Ativan) 1 mg SLOW IVP Q1H PRN PRN Reason: .AGITATION Last Admin: 12/26/18 09:57 Dose: 1 mg Lorazepam (Ativan) 1 mg PO Q4H PRN PRN Reason: Anxiety/Agitation Last Admin: 12/27/18 08:49 Dose: 1 mg Mineral Oil/White Petrolatum (Eucerin Cream) 0 gm TOP BIDPRN PRN PRN Reason: Dry Skin Ondansetron HCl (Zofran) 4 mg IVP Q6H PRN PRN Reason: Nausea/Vomiting Last Admin: 12/22/18 21:14 Dose: 4 mg Ondansetron HCl (Zofran Odt) 4 mg PO Q6H PRN PRN Reason: Nausea/Vomiting Pantoprazole Sodium (Protonix) 40 mg PO BID [facility] Last Admin: 12/27/18 08:50 Dose: 40 mg Propranolol HCl (Inderal) 10 mg PO TID [facility] Last Admin: 12/27/18 08:49 Dose: 10 mg Senna/Docusate Sodium (Senokot S) 2 tab PO BID PRN PRN Reason: Constipation Last Admin: 12/26/18 18:19 Dose: 2 tab Sodium Chloride ([place] Nasal [place] 0.65%) 0 ml EA NARE QIDPRN PRN PRN Reason: Nasal Congestion Sodium Chloride (Flush - Normal Saline) 10 ml IVF PRN PRN PRN Reason: Saline Flush Last Admin: 12/27/18 08:50 Dose: 10 ml Thiamine HCl (Thiamine) 100 mg PO DAILY [facility] Last Admin: 12/27/18 08:48 Dose: 100 mg Throat Lozenges (Cepastat Lozenges) 1 luis a PO Q2H PRN PRN Reason: Sore Throat Zolpidem Tartrate (Ambien) 5 mg PO HSPRN PRN PRN Reason: Insomnia
--- NOTE | 2018-12-27 10:56 | DIS ---
DATE OF ADMISSION: 12/22/2018 DATE OF DISCHARGE: 12/27/2018 PRIMARY CARE PHYSICIAN: [facility]. DISCHARGE DISPOSITION: Home. PRIMARY DISCHARGE DIAGNOSES: 1. Acute gastrointestinal bleed due to Snehal-Crews tear. 2. Anemia due to acute blood loss. 3. Alcohol withdrawal syndrome. 4. Hypomagnesemia. 5. Hemorrhagic shock. SECONDARY DISCHARGE DIAGNOSES: Chronic thrombocytopenia, fibromyalgia, chronic alcoholism, noncompliance with the treatment, coagulopathy due to liver disease, anxiety and depression, alcoholic cirrhosis of liver, portal hypertensive gastropathy. PRIMARY PROCEDURE/OPERATION: EGD was performed by Dr. Curtis and showed Snehal-Crews tear and portal hypertensive gastropathy. RADIOLOGICAL INVESTIGATION: Elbow x-ray and knee x-ray, negative for any fractures. SIGNIFICANT LABORATORY DATA: WBC 5.0, hemoglobin 7.4, platelets 78. INR 1.9. Sodium 137, potassium 3.5, BUN 10, creatinine 0.67, calcium 8.3. DISCHARGE MEDICATIONS: 1. Tylenol No. 3 one or two tablets q.6 hourly p.r.n. for pain. 2. Tegretol 200 mg p.o. b.i.d. 3. Vitamin B12 1000 mcg p.o. daily. 4. Folic acid 1 mg daily. 5. Gabapentin 300 mg p.o. at bedtime. 6. Lactulose 20 g p.o. b.i.d. 7. Magnesium oxide 400 mg p.o. daily. 8. Multivitamin one tablet daily. 9. Protonix 40 mg p.o. b.i.d. 10. Inderal 10 mg b.i.d. 11. Thiamine 100 mg p.o. daily. CONTRAINDICATION: None. CODE STATUS: Full code. INPATIENT STOCK DIGGER: Dr. Curtis was following while in the hospital. Dr. Sims saw this patient because of ICU admission. TEST RESULT PENDING ON DISCHARGE: None. ALLERGIES: NO KNOWN DRUG ALLERGIES. DISCHARGE PLAN: Posthospital, the patient will follow up with primary care physician. HOSPITAL COURSE: A 53-year-old female, who was admitted by me on December 22. This patient has heavy alcoholism. She drank heavily and subsequently, she was having several times vomiting, and subsequently, she started having coffee-ground and red blood vomiting. The patient was brought to ER. She was hypotensive, tachycardic. She was having hemorrhagic shock. She had acute blood loss anemia. She was admitted to the ICU. She required 2 units of blood transfusion. She was taken for upper endoscopy, which showed Snehal-Crews tear and portal hypertensive gastropathy. Subsequently, the patient was hemodynamically stable and we transferred her to medical floor. She had high alcohol withdrawal syndrome, which was treated with Ativan. She had abnormal electrolytes, which was replaced while in hospital. Now, the patient is stabilized. We have provided the patient education to avoid alcoholism. Healthy lifestyle measure discussed with the patient. The patient is medically stable for discharge. This patient is continuously high risk for recurrent admission given her noncompliance. The patient has family member to help her out at home. The patient is seen and examined at bedside today. Please see my progress note from today for further detail. Job ID: [id number]
--- NOTE | 2018-12-29 15:30 | EKG ---
Test Reason : Blood Pressure : / mmHG Vent. Rate : 110 BPM Atrial Rate : 110 BPM P-R Int : 150 ms QRS Dur : 084 ms QT Int : 368 ms P-R-T Axes : 040 016 034 degrees QTc Int : 498 ms Sinus tachycardia Cannot rule out Anterior infarct , age undetermined No STEMI Abnormal ECG Confirmed by DARREN Hidalgo, BRIAN ([id number]), tape editor UNA BUSCH ([id number]) on 12/29/2018 3:29:56 PM Referred By: Confirmed By:BRIAN BANKS M.D.
== END 2018-12-27 12:07 | disposition home or self-care (01) | DRG 368 ==
LOC: ERS 06:36 → CCU 07:36 → ONC 12-23 10:22
PROVIDERS: ADMIT Internal Medicine; ATTEND Internal Medicine
PROC: 0DJ08ZZ Inspection of Upper Intestinal Tract, Via Natural or Artificial Opening Endoscopic (ICD-10-PCS; principal; 2018-12-22)
PROC: 30233N1 Transfusion of Nonautologous Red Blood Cells into Peripheral Vein, Percutaneous Approach (ICD-10-PCS; 2018-12-22)
DX: K22.6 Gastro-esophageal laceration-hemorrhage syndrome (principal); R57.8 Other shock; K76.6 Portal hypertension; D62 Acute posthemorrhagic anemia; F10.239 Alcohol dependence with withdrawal, unspecified; D68.4 Acquired coagulation factor deficiency; K31.89 Other diseases of stomach and duodenum; K70.30 Alcoholic cirrhosis of liver without ascites; Z86.79 Personal history of other diseases of the circulatory system; K21.9 Gastro-esophageal reflux disease without esophagitis; Z98.51 Tubal ligation status; Z98.82 Breast implant status; E83.42 Hypomagnesemia; M79.7 Fibromyalgia; Z91.19 Patient's noncompliance with other medical treatment and regimen; G89.29 Other chronic pain; M54.9 Dorsalgia, unspecified; G43.809 Other migraine, not intractable, without status migrainosus; Z87.19 Personal history of other diseases of the digestive system; K70.10 Alcoholic hepatitis without ascites; F41.9 Anxiety disorder, unspecified; F32.9 Major depressive disorder, single episode, unspecified; Z87.11 Personal history of peptic ulcer disease; D69.59 Other secondary thrombocytopenia
CPT/HCPCS: 36415; 36430; 80048; 80053; 82140; 82330; 82728; 82803; 83540; 83550; 83605; 83735; 84100; 85014; 85018; 85025; 85610; 85730; 86850; 86900; 86901; 93005; 96361; 96365; 96374; 96375; C9113; J0696; J1100; J2001; J2060; J2250; J2354; J2405; J2704; J2765; J3010; J3411; J3475; J7042; J7050; P9016

== ENCOUNTER 2019-01-12 06:20 | Inpatient (IN) | payer SELFPAY ==
[2019-01-12] MEDS ORDERED: Multivitamins, Adult 10 ML, Thiamine HCl 100 MG, Folic Acid 1 MG in Dextrose 5 %-0.45 %... IV SCH (07:30)
[2019-01-12] MEDS ORDERED: Ondansetron PF 4 MG/2 ML Vial ONE (07:40)
[2019-01-12 07:55] LABS: Bilirubin Negative (Negative); Blood, Urine Negative (Negative); Clarity CLEAR (Clear); Glucose, Urine (Dipstick) Negative (Negative); Leukocyte Negative (Negative); Nitrite Negative (Negative); Protein, Urine (Dipstick) Negative (Neg-Trace); Specific Gravity, Urine 1.003 (1.002-1.036)
[2019-01-12 08:25] LABS: Hemoglobin 7.3 g/dL (12.0-16.0); Mean Corpuscular HGB CONC 31.4 g/dL (32.0-36.0); Mean Corpuscular Hemoglobin 25.6 pg (27.0-31.0); Mean Corpuscular Volume 81.6 fL (78.0-98.0); Mean Platelet Volume 9.8 fL (7.4-10.4); Platelet Count 75 thou/uL (130-400); RBC Distribution Width 19.5 % (11.5-14.5); Red Blood Cell (RBC) Count 2.87 mill/uL (4.20-5.40); White Blood Cell (WBC) Count 3.9 thou/uL (4.8-10.8)
[2019-01-12 08:26] LABS: INR-International Normal Ratio 1.4; PTT 38.7 SEC (22.9-36.1); Prothrombin Time 17.2 SEC (12.0-14.7)
[2019-01-12 08:35] LABS: ALT (SGPT) 14 U/L (8-55); AST (SGOT) 49 U/L (5-34); Albumin 3.2 g/dL (3.5-5.0); Alcohol 191 mg/dL (Less than 10); Alkaline Phosphatase 133 U/L (40-150); Anion Gap 11 mmol/L (10-20); BUN (Urea Nitrogen) Less than 4 mg/dL (9.8-20.1); Calc. Creatinine Clearance 0 mL/min (70-130); Calcium 8.6 mg/dL (7.8-10.44); Carbon Dioxide 24 mmol/L (22-29); Chloride 99 mmol/L (98-107); Estimated GFR-MDRD Greater than 90; Globulin 3.6 g/dL (2.4-3.5); Glucose 86 mg/dL (70-105); Lipase 22 U/L (8-78); Potassium 3.4 mmol/L (3.5-5.1); Protein, Total 6.8 g/dL (6.0-8.3); Sodium 131 mmol/L (136-145)
[2019-01-12 09:00] LABS: #Basophils 0.1 thou/uL (0.0-0.2); #Eosinphils 0.1 thou/uL (0.0-0.7); #Lymphocytes 1.6 thou/uL (1.20-3.40); #Monocytes 0.6 thou/uL (0.11-0.59); #Neutrophils 1.6 thou/uL (1.40-6.50); %Basophils 1.4 % (0.0-1.0); %Eosinophils 1.4 % (0.0-10.0); %Lymphocytes 41.9 % (21.0-51.0); %Monocytes 14.8 % (0.0-10.0); %Neutrophils 40.6 % (42.0-75.0); Anisocytosis SLIGHT = 6-15 cells (100X) (0-5/hpf); Hypochromia SLIGHT = 6-15 cells (100X) (0-5/hpf); MDiff Complete? YES; Microcytosis SLIGHT = 6-15 cells (100X) (0-5/hpf); Platelet Morphology Comment Appears Decreased; Polychromasia SLIGHT = 2-3 cells (100X) (0-2/hpf); Target Cells SLIGHT = 2-5 cells (100X) (0-1/hpf)
[2019-01-12] MEDS ORDERED: Pantoprazole 40 MG VIAL ONE (10:13)
[2019-01-12] MEDS ORDERED: Diazepam 10 MG/2 ML SYRINGE IVP SCH (11:00)
[2019-01-12] MEDS ORDERED: Ondansetron PF 4 MG/2 ML Vial IVP PRN (12:04)
[2019-01-12] MEDS ORDERED: Ondansetron ODT 4 MG TAB SL PRN (12:04)
[2019-01-12] MEDS ORDERED: Dextrose 5 %-0.45 % NaCl 1,000 ML IV SCH (12:15)
[2019-01-12] MEDS: Lorazepam 2 MG/ML VIAL SLOW IVP PRN ×2 (12:27→20:20)
[2019-01-12 13:48] VITALS: BMI 28.2
[2019-01-12] MEDS: HYDROcodone/Acetaminophen 5/325 mg Tablet PO PRN ×2 (16:50→22:31)
[2019-01-12] MEDS: Pantoprazole 80 MG in Sodium Chloride 0.9% 100 ML IVP SCH (19:29)
--- NOTE | 2019-01-12 21:16 | HP ---
CHIEF COMPLAINT: Hematochezia and hematemesis. HISTORY OF PRESENT ILLNESS: The patient is a 53-year-old female with history of alcohol abuse and history of portal hypertension, who presents to the hospital with complaints of one day of hematochezia and hematemesis. The patient stated that she has been feeling unwell for the past couple of days; however, she continues to drink and has been drinking a 12-pack on a daily basis. The patient stated that yesterday, she started having some abdominal discomfort. The patient stated later on in the day, she started having bright blood per rectum and also had nausea and vomiting x2, which was bloody in nature. The patient states that she has not been really eating very much for the past couple of days either. The patient stated that before coming into the hospital, the patient states that she drank 2 cans of beer since she started feeling that she was withdrawing. She denies any fevers or chills. The patient acknowledges the fact that she needs help with her alcohol use. She was recently here in the hospital on December 27 and was discharged due to hemorrhagic shock from upper GI bleed; however, at that time, the patient did have an endoscopy by GI and indicated that she had no varices, but she did have a healing Snehal-Crews tear and some portal hypertensive gastropathy. PAST MEDICAL HISTORY: As of the following; 1. Alcohol abuse. 2. Portal hypertension. 3. Hypertension. 4. Chronic lower back pain. 5. Peptic ulcer disease. 6. Fibromyalgia. 7. Migraine headaches. 8. There is a mention of polysubstance abuse. PAST SURGICAL HISTORY: She has had multiple EGDs. She has had left ankle surgery, endometrial ablation, breast augmentation, tubal ligation, and bladder suspension. SOCIAL HISTORY: She lives with her , and she drinks about a 12-pack of beer a day. She denies any use of liquor. Denies any tobacco use or any other illicit drug use. She is currently a full code. The patient is looking into trying to find insurance, so she can go into a program for her alcohol abuse. Her last time that she did a program, she was sober for about 2 years. FAMILY HISTORY: Positive for coronary artery disease. ALLERGIES: SHE HAS NO KNOWN DRUG ALLERGIES. MEDICATIONS: As of the following; she is on; 1. Tylenol No. 3. 2. Tegretol 200 mg b.i.d. 3. Folic acid one daily. 4. Gabapentin 300 mg at bedtime. 5. Lactulose 20 mg b.i.d. for which she is only taking it daily. 6. Protonix 40 mg b.i.d. 7. Inderal 10 mg b.i.d. 8. Thiamine 100 mg p.o. daily. REVIEW OF SYSTEMS: All negative except for the ones mentioned above in HPI. PHYSICAL EXAMINATION: VITAL SIGNS: As of the following; temperature of 98.5, heart rate 91, respiratory rate 16, O2 saturation is 95% on room air, and blood pressure 152/78. GENERAL: She is awake, alert, and oriented x3. Does not appear in any distress. HEENT: Normocephalic, atraumatic. No lymphadenopathy. Pupils are equal and reactive to light. LUNGS: Clear to auscultation. No rhonchi or wheezes noted. CV: S1 and S2 present. No murmurs, rubs, or gallops. ABDOMEN: Obese. Bowel sounds are present x2. Pain upon palpation to epigastric area and right upper quadrant and generalized abdominal pain on mild palpation. EXTREMITIES: No edema. Pedal pulses are present x2. NEUROVASCULAR: No focal deficits noted. SKIN: She has a few tattoos, but otherwise no cuts, lesions, or bruises noted. LABORATORY RESULTS: As of the following; WBCs of 3.9; hemoglobin of 7.3, which is at her baseline of 7.4 last time; and platelets of 75, which is also at her baseline. Chemistry; sodium of 131, potassium of 3.4, BUN of 4, and creatinine of 0.51. Her AST is 49. In her coags, she does have an elevated PTT of 38.7 and PT of 17.2. ASSESSMENT AND PLAN: The patient is a very pleasant 53-year-old female who presents to the hospital with complaints of hematochezia and hematemesis. 1. Upper gastrointestinal bleed, possible. We will start the patient on Protonix twice a day. Consult GI. We will type and screen her. I do not believe she requires any octreotide drip for right now since she did not have esophageal varices on her last endoscopy. There is also risk of Snehal-Crews tear since last time her Snehal-Crews tear was stable. 2. Alcohol abuse. The patient's discriminant factor was 24.9, most likely not alcoholic hepatitis. I have had a very lengthy discussion with her in regard to her alcohol use and her overall poor prognosis. She understands and verbalizes that she needs to stop drinking; however, the patient feels that she is working on getting help, however, has not done so. 3. Chronic back pain. We will continue to monitor. We may give her some tramadol if needed. 4. Alcohol withdrawal. We will put the patient on CIWA protocol and given her thiamine and folic acid. We will start that tomorrow. We will give her a liter of multivitamin bag and continue to monitor. 5. Deep venous thrombosis prophylaxis. We will put the patient on SCDs. 6. Thrombocytopenia, most likely secondary to her alcohol abuse. 7. Hypokalemia. We will replace her potassium. Job ID: [id number]
--- NOTE | 2019-01-12 21:56 | CON ---
DATE OF CONSULTATION: 01/12/2019 REASON FOR CONSULTATION: Hematemesis. HISTORY OF PRESENT ILLNESS: Aicha Osorio is a 53-year-old woman, well known to myself and all my GI colleagues for recurrent presentations with Snehal-Crews tear secondary to ongoing alcohol abuse and alcoholic liver disease. She is primarily followed by my partner, Dr. Maciel Stewart. She has cirrhosis secondary to chronic ongoing alcohol abuse, but no evidence of any esophageal or gastric varices on multiple repeat EGDs. She comes in every couple of months with acute hematemesis in the context of ongoing binge drinking. Her last presentation was just few weeks ago, and she underwent upper endoscopy at that time showing healing Snehal-Crews tear and portal hypertensive gastropathy. On this presentation, she says she had couple episodes of smaller volume hematemesis, also had a bit of scant rectal bleeding, which concerned her and that prompted her presentation. Hemoglobin is 7.3, which is stable from discharge value two and half weeks ago. Currently, she is not nauseated anymore. Has no other complaints. She acknowledges that drinking is a big problem for her, and she really needs to quit. REVIEW OF SYSTEMS: Full review of systems including constitutional, head, eyes, ears, nose, throat, GI, , cardiovascular, respiratory, musculoskeletal, neurologic systems is negative except as noted in the HPI. PAST MEDICAL HISTORY: Alcoholic hepatitis, alcoholic cirrhosis, alcohol withdrawal, polysubstance abuse, migraines, fibromyalgia, chronic back pain, hypertension, repeated admissions with Snehal-Crews tear, last in 12/2018, breast augmentation, tubal ligation, endometrial ablation, and ankle surgery. SOCIAL HISTORY: She continues to drink alcohol 10 to 12 beers daily. FAMILY HISTORY: Negative for cirrhosis or GI malignancy. ALLERGIES: IODINE. OUTPATIENT MEDICATIONS: 1. Carbamazepine. 2. Multivitamin with minerals. 3. Lactulose 20 g daily. 4. Neurontin. 5. Magnesium oxide 500 mg daily. 6. Calcium carbonate. 7. Vitamin B12. 8. Tramadol. 9. Folic acid. 10. Thiamine. 11. Propranolol 10 mg b.i.d. 12. Pantoprazole 40 mg b.i.d. 13. Melatonin. PHYSICAL EXAMINATION: VITAL SIGNS: Temperature 98.5, pulse 91, blood pressure 152/78, and 95% oxygen saturation on room air. GENERAL: A 53-year-old woman, lying in bed comfortably, in no distress. SKIN: No jaundice, no rashes were palpable. EYES: No scleral icterus. Extraocular movements intact. ENT: Mucous membranes moist. No oral lesions. LYMPH: No submandibular or supraclavicular lymphadenopathy. THYROID: Nontender to palpation. HEART: Regular rate and rhythm. LUNGS: Clear to auscultation bilaterally. ABDOMEN: Nondistended. Bowel sounds present. Soft. Some tenderness to palpation generalized throughout the abdomen but no guarding, rebound, tenderness. EXTREMITIES: No peripheral edema. VESSELS: Radial pulses 2+ bilaterally. NEURO: Cranial nerves 2 through 12 intact bilaterally. No focal deficits. LABORATORY STUDIES: Hemoglobin 7.3, stable from last admission, MCV 81.6, platelets 75, and WBC 3.9. INR is 1.4, which has improved from last admission. Sodium 131, potassium 3.4, BUN 4, creatinine 0.51. LFTs improved from last admission with total bilirubin 1.0, alkaline phosphatase 133, AST 49, ALT 14, albumin is 3.2, and lipase only 22. Urinalysis negative. Blood alcohol level is 191. ASSESSMENT AND PLAN: 1. Hematemesis, almost certainly secondary to recurrent Snehal-Crews tear. Her hemoglobin is stable from prior admission. She has no evidence of varices on multiple recent EGDs. She is hemodynamically stable. We will not plan on any endoscopy at this time. 2. Ongoing alcohol abuse. 3. Alcoholic liver disease. Her liver function otherwise appears stable at this time, despite continued heavy alcohol abuse, against the advice of multiple providers over all these presentations. I again emphasized with her that she is going to have to stop drinking alcohol completely. Expect she will be having some withdrawal symptoms over the next few days. I would have her on clear liquids today, could advance diet as tolerated tomorrow if doing well. Would have her on IV PPI for now, transition back to p.o. on hospital discharge. No other recommendations from a GI perspective. Job ID: [id number]
[2019-01-13] MEDS: Lorazepam 2 MG/ML VIAL SLOW IVP PRN (03:25)
[2019-01-13] MEDS: HYDROcodone/Acetaminophen 5/325 mg Tablet PO PRN ×3 (04:29→22:34)
[2019-01-13] MEDS: Pantoprazole 80 MG in Sodium Chloride 0.9% 100 ML IVP SCH (05:51)
[2019-01-13 07:55] LABS: Hemoglobin 7.5 g/dL (12.0-16.0); Mean Corpuscular HGB CONC 31.6 g/dL (32.0-36.0); Mean Corpuscular Hemoglobin 25.8 pg (27.0-31.0); Mean Corpuscular Volume 81.5 fL (78.0-98.0); Mean Platelet Volume 9.5 fL (7.4-10.4); Platelet Count 65 thou/uL (130-400); RBC Distribution Width 19.4 % (11.5-14.5); Red Blood Cell (RBC) Count 2.89 mill/uL (4.20-5.40)
[2019-01-13 07:59] LABS: Anion Gap 10 mmol/L (10-20); BUN (Urea Nitrogen) 4 mg/dL (9.8-20.1); Calc. Creatinine Clearance 134 mL/min (70-130); Calcium 8.6 mg/dL (7.8-10.44); Carbon Dioxide 22 mmol/L (22-29); Chloride 103 mmol/L (98-107); Estimated GFR-MDRD Greater than 90; Glucose 97 mg/dL (70-105); Potassium 3.4 mmol/L (3.5-5.1); Sodium 132 mmol/L (136-145)
[2019-01-13 08:29] LABS: Anisocytosis SLIGHT = 6-15 cells (100X) (0-5/hpf); Hypochromia MARKED = >30 cells (100X) (0-5/hpf); Lymphocytes 38 % (21-51); MDiff Complete? YES; Microcytosis SLIGHT = 6-15 cells (100X) (0-5/hpf); Monocytes 12 % (0-10); Neutrophil 40 % (42-75); Platelet Morphology Comment Appears Decreased; Polychromasia SLIGHT = 2-3 cells (100X) (0-2/hpf); Reactive Lymphocytes 9 % (0-10)
[2019-01-13] MEDS ORDERED: Non-Formulary Item 1 EACH (Melatonin [Melatonin] 10 MG) PO PRN (08:50)
--- NOTE | 2019-01-13 08:54 | PRG ---
DATE OF SERVICE: 01/13/2019 SUBJECTIVE: Ms. Osorio is feeling okay. She is little bit confused this morning. Nausea and abdominal pain have significantly improved. She is tolerating clear liquids. There has been no further vomiting. She had some normal appearing bowel movement. OBJECTIVE: VITAL SIGNS: Temperature 98.3, pulse 94, blood pressure 122/75, and 94% oxygen saturation on room air. GENERAL: No acute distress. HEART: Regular rate and rhythm. LUNGS: Clear to auscultation bilaterally. ABDOMEN: Soft and nontender to palpation. EXTREMITIES: No peripheral edema. LABORATORY STUDIES: Hemoglobin stable at 7.5, WBC 3.0, and platelets 65. INR 1.4. Sodium 132, potassium 3.4, BUN 4, and creatinine 0.59. ASSESSMENT AND PLAN: 1. Hematemesis, likely secondary to recurrent Snehal-Crews tear, resolved. 2. Chronic anemia, stable. 3. Alcoholic liver disease. 4. Ongoing alcohol abuse. I think her diet can be advanced as tolerated. She is going to continue to be treated for withdrawal symptoms. I again stressed the importance of complete abstinence from alcohol. No further recommendations from a GI perspective. Transition her back to oral PPI upon hospital discharge. Job ID: [id number]
[2019-01-13] MEDS ORDERED: Non-Formulary Item 1 EACH (Magnesium Oxide [Magnesium] 500 MG) PO SCH (09:00)
[2019-01-13] MEDS ORDERED: Non-Formulary Item 1 EACH (Lactulose 10 Gm/15ml Oral Sol 20 GM) PO SCH (09:00)
[2019-01-13] MEDS ORDERED: Thiamine 100 MG TAB PO SCH (09:00)
[2019-01-13] MEDS: Cyanocobalamin (Vitamin B-12) 1,000 MCG TAB PO SCH (10:40)
[2019-01-13] MEDS: Folic Acid 1 MG TAB PO SCH (10:40)
[2019-01-13] MEDS: Propranolol 10 MG TAB PO SCH ×2 (10:41→20:38)
[2019-01-13] MEDS: Thiamine 100 MG TAB PO SCH (10:41)
[2019-01-13] MEDS: Magnesium Oxide 250 MG TAB PO SCH (10:41)
[2019-01-13] MEDS: Lorazepam 1 MG TAB PO SCH ×3 (10:42→20:38)
[2019-01-13] MEDS: Multivitamin W/ Minerals 1 TAB PO SCH (10:42)
[2019-01-13] MEDS: Pantoprazole 40 MG VIAL IVP SCH ×2 (10:43→20:38)
[2019-01-13] MEDS ORDERED: Melatonin 3 MG TAB PO PRN (12:03)
[2019-01-13] MEDS: Calcium Carbonate 500 MG TAB PO SCH (12:10)
[2019-01-13] MEDS: Multivitamins, Adult 10 ML, Folic Acid 1 MG, Thiamine HCl 100 MG in Dextrose 5 %-0.45 %... IV SCH (12:11)
[2019-01-13] MEDS: carBAMazepine 200 MG TAB PO SCH (16:01)
--- NOTE | 2019-01-13 17:43 | PRG ---
DATE OF SERVICE: 01/13/2019 SUBJECTIVE: The patient is seen and examined at the bedside. She is quite shaky. OBJECTIVE: VITAL SIGNS: Blood pressure is 123/75, pulse is 77, temperature is 98.9, respiratory rate is 20, and O2 saturation is 94% on room air. HEENT: Head is atraumatic and normocephalic. Eyes are PERRLA. Sclerae are nonicteric. Oral mucosa is somewhat dry. NECK: Supple. LUNGS: Clear. HEART: S1, S2 normal. ABDOMEN: Soft and nontender. Bowel sounds are present. No organomegaly. EXTREMITIES: No clubbing, cyanosis, or edema. NEUROLOGIC: She is able to answer my questions. She is alert and oriented x4. There is no any motor deficits. She has quite significant shakiness in upper extremities. LABORATORY DATA: Labs showed a white count of 3.0, hemoglobin 7.5, hematocrit 23.6, and platelet count is 65,000. Sodium of 132, potassium 3.4, chloride 103, CO2 of 22, BUN 4, creatinine 0.59, and glucose 97. IMPRESSION: 1. Possible upper gastrointestinal bleed, on Protonix, seen by Dr. Curtis, who does not offer any recommendation to have a scoping. He thinks it is secondary to Snehal-Crews tear. 2. Alcohol intoxication. The patient is going through some withdrawal symptoms. We will keep her on scheduled dose of benzodiazepines. 3. Alcoholic liver disease. 4. Liver cirrhosis retention. 5. Repeated admissions for Snehal-Crews tear. 6. Fibromyalgia. 7. History of migraines. PLAN: Plan is to continue her banana bag. Continue detox. We will continue according to recommendations per GI monitoring. I will start her on scheduled dose of benzodiazepines and watch her for additional couple of days to make sure that she does not go to any full delirium. Job ID: [id number]
[2019-01-13] MEDS: Gabapentin 300 MG CAP PO SCH (20:38)
[2019-01-13] MEDS: Erythromycin Base 0.5% Oint 1 GM TUBE L EYE SCH (20:39)
[2019-01-14] MEDS: traMADol HCl 50 MG TAB PO PRN (03:11)
[2019-01-14] MEDS: HYDROcodone/Acetaminophen 5/325 mg Tablet PO PRN ×3 (06:26→19:32)
[2019-01-14] MEDS: Propranolol 10 MG TAB PO SCH ×2 (08:46→20:43)
[2019-01-14] MEDS: Cyanocobalamin (Vitamin B-12) 1,000 MCG TAB PO SCH (08:47)
[2019-01-14] MEDS: Lorazepam 1 MG TAB PO SCH ×3 (08:47→20:43)
[2019-01-14] MEDS: Calcium Carbonate 500 MG TAB PO SCH (08:47)
[2019-01-14] MEDS: Folic Acid 1 MG TAB PO SCH (08:47)
[2019-01-14] MEDS: Multivitamin W/ Minerals 1 TAB PO SCH (08:47)
[2019-01-14] MEDS: Pantoprazole 40 MG VIAL IVP SCH ×2 (08:47→20:43)
[2019-01-14] MEDS: Thiamine 100 MG TAB PO SCH (08:47)
[2019-01-14] MEDS: carBAMazepine 200 MG TAB PO SCH ×2 (08:47→15:54)
[2019-01-14] MEDS: Magnesium Oxide 250 MG TAB PO SCH (08:48)
[2019-01-14] MEDS: Erythromycin Base 0.5% Oint 1 GM TUBE L EYE SCH ×3 (08:48→20:47)
[2019-01-14 10:00] LABS: Anion Gap 10 mmol/L (10-20); BUN (Urea Nitrogen) 5 mg/dL (9.8-20.1); Calc. Creatinine Clearance 128 mL/min (70-130); Calcium 8.8 mg/dL (7.8-10.44); Carbon Dioxide 24 mmol/L (22-29); Chloride 103 mmol/L (98-107); Estimated GFR-MDRD Greater than 90; Glucose 85 mg/dL (70-105); Magnesium 1.3 mg/dL (1.6-2.6); Potassium 3.2 mmol/L (3.5-5.1); Sodium 134 mmol/L (136-145)
[2019-01-14 10:06] LABS: Anisocytosis SLIGHT = 6-15 cells (100X) (0-5/hpf); Eosinophils 2 % (0-10); Hemoglobin 8.2 g/dL (12.0-16.0); Hypochromia SLIGHT = 6-15 cells (100X) (0-5/hpf); Lymphocytes 22 % (21-51); MDiff Complete? YES; Mean Corpuscular HGB CONC 30.7 g/dL (32.0-36.0); Mean Corpuscular Hemoglobin 25.4 pg (27.0-31.0); Mean Corpuscular Volume 82.8 fL (78.0-98.0); Mean Platelet Volume 9.8 fL (7.4-10.4); Monocytes 6 % (0-10); Neutrophil 70 % (42-75); Platelet Count 67 thou/uL (130-400); Platelet Morphology Comment Appears Decreased; RBC Distribution Width 19.7 % (11.5-14.5); Red Blood Cell (RBC) Count 3.21 mill/uL (4.20-5.40); White Blood Cell (WBC) Count 3.7 thou/uL (4.8-10.8)
[2019-01-14] MEDS ORDERED: Magnesium Sulfate 3 GM in Sodium Chloride 0.9% 100 ML IVPB SCH (10:30)
--- NOTE | 2019-01-14 10:35 | PRG ---
DATE OF SERVICE: 01/14/2019 SUBJECTIVE: The patient is seen and examined at the bedside and she is feeling better. Her shakiness improved. She is tolerating food well. OBJECTIVE: VITAL SIGNS: Blood pressure is 124/78, pulse is 78, temperature is 98.5, respirations 17, and O2 saturation is 92% on room air. HEENT: Head is atraumatic and normocephalic. Eyes are PERRLA. Sclerae nonicteric. Oral mucosa still slightly dry. NECK: Supple. LUNGS: Clear. HEART: S1 and S2 normal. No S3. No S4. ABDOMEN: Soft. Mildly tender in the epigastric area. No guarding. No masses. EXTREMITIES: No clubbing, cyanosis, or edema. NEUROLOGICAL: She is still a little bit shaky and unsteady, but she moves her all 4 extremities. There is no any motor deficits. She follows my commands. LABORATORY DATA: Labs showed white count of 3.7, hemoglobin 8.2, hematocrit 26.6, and platelet count is 67,000. Sodium of 134, potassium 3.2, chloride 103, CO2 of 24, BUN 5, creatinine 0.62, and magnesium 1.3. IMPRESSION: 1. Possible upper gastrointestinal bleed on Protonix, it is felt to be secondary to Snehal-Crews tear. No scoping offered by GI. 2. Alcohol intoxication. 3. Alcohol withdrawal syndrome on benzodiazepine. 4. Alcoholic liver disease. 5. Liver cirrhosis. 6. Fibromyalgia. 7. Hypokalemia and hypomagnesemia for replacement. 8. History of migraines. PLAN: As mentioned above. Continue banana bag. Continue detox. Continue supplementation of magnesium and potassium, and she should be able to go home in the next probably 24-48 hours and continue lorazepam scheduled dose for alcohol withdrawal syndrome. Job ID: [id number]
[2019-01-14] MEDS: Multivitamins, Adult 10 ML, Folic Acid 1 MG, Thiamine HCl 100 MG in Dextrose 5 %-0.45 %... IV SCH (12:43)
[2019-01-14] MEDS: Lorazepam 2 MG/ML VIAL SLOW IVP PRN (12:44)
[2019-01-14] MEDS: Potassium Chloride 20 MEQ TAB PO SCH (15:54)
--- NOTE | 2019-01-14 16:20 | PRG ---
DATE OF SERVICE: 01/14/2019 SUBJECTIVE: Ms. Osorio is no longer having any hematemesis. She is starting a diet. She is on a banana bag. OBJECTIVE: VITAL SIGNS: Temperature is 97.9, pulse 74, and blood pressure 143/82. ABDOMEN: Soft and nontender. LABORATORY DATA: White count 3.7, hemoglobin 8.2, platelet count 67,000. INR 1.4. Basic metabolic profile normal. AST 49 and ALT 14 on admission. ASSESSMENT: 1. Alcohol abuse. 2. Alcoholic hepatitis. 3. Hematemesis with Snehal-Crews tear in the past, gastrointestinal bleed in the past. Self-limited gastrointestinal bleed at this time with no active bleeding. RECOMMENDATIONS: Stop alcohol. Continue PPI. We will sign off. If I could be of any further assistance, please do not hesitate to contact me. Job ID: [id number]
[2019-01-14] MEDS: Gabapentin 300 MG CAP PO SCH (20:43)
[2019-01-15] MEDS: HYDROcodone/Acetaminophen 5/325 mg Tablet PO PRN ×4 (01:21→22:01)
[2019-01-15] MEDS: traMADol HCl 50 MG TAB PO PRN ×2 (06:38)
[2019-01-15 07:11] LABS: Anion Gap 12 mmol/L (10-20); BUN (Urea Nitrogen) 5 mg/dL (9.8-20.1); Calc. Creatinine Clearance 139 mL/min (70-130); Calcium 8.9 mg/dL (7.8-10.44); Carbon Dioxide 23 mmol/L (22-29); Chloride 101 mmol/L (98-107); Estimated GFR-MDRD Greater than 90; Glucose 87 mg/dL (70-105); Magnesium 1.7 mg/dL (1.6-2.6); Potassium 3.8 mmol/L (3.5-5.1); Sodium 132 mmol/L (136-145)
[2019-01-15] MEDS: carBAMazepine 200 MG TAB PO SCH ×2 (08:13→17:37)
[2019-01-15] MEDS: Ondansetron ODT 4 MG TAB PO PRN (08:13)
[2019-01-15] MEDS: Calcium Carbonate 500 MG TAB PO SCH (08:13)
[2019-01-15] MEDS: Thiamine 100 MG TAB PO SCH (08:13)
[2019-01-15] MEDS: Folic Acid 1 MG TAB PO SCH (08:13)
[2019-01-15] MEDS: Potassium Chloride 20 MEQ TAB PO SCH ×2 (08:13→17:37)
[2019-01-15] MEDS: Lorazepam 1 MG TAB PO SCH ×3 (08:13→20:48)
[2019-01-15] MEDS: Multivitamin W/ Minerals 1 TAB PO SCH (08:13)
[2019-01-15] MEDS: Pantoprazole 40 MG VIAL IVP SCH ×2 (08:14→20:50)
[2019-01-15] MEDS: Erythromycin Base 0.5% Oint 1 GM TUBE L EYE SCH ×3 (08:14→20:52)
[2019-01-15] MEDS: Magnesium Oxide 250 MG TAB PO SCH (08:14)
[2019-01-15] MEDS: Cyanocobalamin (Vitamin B-12) 1,000 MCG TAB PO SCH (08:14)
[2019-01-15] MEDS: Propranolol 10 MG TAB PO SCH ×2 (08:14→20:48)
[2019-01-15] MEDS: Multivitamins, Adult 10 ML, Folic Acid 1 MG, Thiamine HCl 100 MG in Dextrose 5 %-0.45 %... IV SCH (13:01)
[2019-01-15] MEDS: Lorazepam 2 MG/ML VIAL SLOW IVP PRN (13:02)
--- NOTE | 2019-01-15 16:45 | PRG ---
DATE OF SERVICE: 01/15/2019 SUBJECTIVE: The patient is seen and examined at the bedside. She has some nausea and some weakness in the lower extremities, she complains about. OBJECTIVE: VITAL SIGNS: Blood pressure is 123/74, pulse is 69, temperature is 98.3, respirations 18, and O2 saturation is 98% on room air. HEENT: Head is atraumatic and normocephalic. Eyes are PERRLA. Sclerae are nonicteric. Oral mucosa is moist. NECK: Supple. LUNGS: Clear. HEART: S1 and S2 normal. ABDOMEN: Soft and nontender. Bowel sounds are present. No organomegaly. EXTREMITIES: No clubbing, cyanosis, or edema. NEUROLOGICAL: She is still a bit shaky and showing some difficulty of walking. LABORATORY DATA: Labs showed a sodium of 132, potassium 3.8, chloride 101, CO2 of 23, BUN 5, and creatinine 0.57. The rest of chemistry is within normal limits. IMPRESSION: 1. Self-limited upper gastrointestinal bleed most likely from Snehal-Crews tear. 2. Alcohol intoxication. 3. Alcohol withdrawal syndrome, on benzodiazepines. 4. Alcoholic liver disease. 5. Liver cirrhosis. 6. Fibromyalgia. 7. Hypokalemia and hypomagnesemia, status post replacement. 8. History of migraines. PLAN: Plan is to continue her current regimen with banana bag and is supplementing her deficiencies. Continuation of her lorazepam to prevent alcohol withdrawal syndrome. She will ambulate more today and tomorrow and most likely she will be able to go home tomorrow. She is quite unsteady on her feet today and the planned discharge was postponed until tomorrow when she is better. Job ID: [id number]
[2019-01-15] MEDS: Gabapentin 300 MG CAP PO SCH (20:48)
[2019-01-16] MEDS: HYDROcodone/Acetaminophen 5/325 mg Tablet PO PRN ×2 (05:30→11:10)
[2019-01-16] MEDS: Lorazepam 1 MG TAB PO SCH (08:27)
[2019-01-16] MEDS: Folic Acid 1 MG TAB PO SCH (08:27)
[2019-01-16] MEDS: Cyanocobalamin (Vitamin B-12) 1,000 MCG TAB PO SCH (08:28)
[2019-01-16] MEDS: Magnesium Oxide 250 MG TAB PO SCH (08:28)
[2019-01-16] MEDS: carBAMazepine 200 MG TAB PO SCH (08:28)
[2019-01-16] MEDS: Erythromycin Base 0.5% Oint 1 GM TUBE L EYE SCH (08:28)
[2019-01-16] MEDS: Calcium Carbonate 500 MG TAB PO SCH (08:28)
[2019-01-16] MEDS: Thiamine 100 MG TAB PO SCH (08:28)
[2019-01-16] MEDS: Multivitamin W/ Minerals 1 TAB PO SCH (08:28)
[2019-01-16] MEDS: traMADol HCl 50 MG TAB PO PRN (08:32)
[2019-01-16] MEDS: Ondansetron ODT 4 MG TAB PO PRN (08:32)
[2019-01-16] MEDS: Pantoprazole 40 MG VIAL IVP SCH (09:10)
[2019-01-16] MEDS: Propranolol 10 MG TAB PO SCH (09:10)
[2019-01-16 12:01] VITALS: BP 114/74; TEMP 98.2
[2019-01-16] MEDS: Multivitamins, Adult 10 ML, Folic Acid 1 MG, Thiamine HCl 100 MG in Dextrose 5 %-0.45 %... IV SCH (12:28)
--- NOTE | 2019-01-17 06:23 | DIS ---
DATE OF ADMISSION: 01/12/2019 DATE OF DISCHARGE: 01/16/2019 DISCHARGE DIAGNOSES: As of the following. 1. Upper gastrointestinal bleed, most likely secondary to Snehal-Crews tear. 2. Alcohol intoxication. 3. Alcohol withdrawal. 4. Alcoholic liver disease. 5. Liver cirrhosis. 6. Fibromyalgia. 7. Electrolyte abnormalities. HOSPITAL COURSE: The patient is a 53-year-old female with a history of alcohol abuse, who presented to the hospital on the with complaints of bloody emesis and also dark stools. At this time, her H and H was 7.3. She was not initially transfused. She was put on IV Protonix and GI was consulted. The patient was seen by GI who monitor her under conservative management. There was no procedures done. Her hematemesis was thought to be most likely secondary to recurrent Snehal-Crews tear. At this time, she was treated for alcohol withdrawal and was put on CIWA protocol. Discharged to home. She will follow up with her PCP as outpatient. She has been educated significantly on refraining from alcohol. PHYSICAL EXAMINATION: VITAL SIGNS: Temperature 98.1, pulse 75, respirations 17, oxygen saturation 95%, blood pressure of 153/73. GENERAL: She is awake, alert, and oriented x3. Does not appear in distress. The patient is ambulating without any issues. She is not dizzy. ABDOMEN: Soft and nontender. Bowel sounds are present x2. EXTREMITIES: No edema. Pedal pulses present x2. LUNGS: Clear to auscultation. No rhonchi or wheezes noted. HEENT: She does have a confined lesion to her left upper eyelid. She has been following up with Ophthalmology. I did recommend her to follow up with Ophthalmology for that. HOME MEDICATIONS: Her home medications will be as of the following. 1. Tegretol 200 mg b.i.d. 2. Lactulose 20 g daily. 3. Neurontin 300 mg at bedtime. 4. Thiamine 100 mg daily. 5. Folic acid 1 mg p.o. daily. 6. Melatonin 10 mg at bedtime. 7. Propranolol 10 mg b.i.d. 8. Protonix 40 mg b.i.d. 9. I did give her a script for tramadol for about 50. The patient again is stable. She will be discharged home. I have talked to her multiple times about alcohol abstinence. She also understands the consequences. Multiple subspecialties and multiple internists have told her in regard to the side effects and worst-case scenarios of continuing to use alcohol. Job ID: [id number]
== END 2019-01-16 13:53 | disposition home or self-care (01) | DRG 369 ==
LOC: ERS 06:20 → T4-B 11:49
PROVIDERS: ADMIT Internal Medicine; ATTEND Internal Medicine
PROC: HZ2ZZZZ Detoxification Services for Substance Abuse Treatment (ICD-10-PCS; principal; 2019-01-12)
DX: K22.6 Gastro-esophageal laceration-hemorrhage syndrome (principal); F10.239 Alcohol dependence with withdrawal, unspecified; K76.6 Portal hypertension; F10.229 Alcohol dependence with intoxication, unspecified; K70.30 Alcoholic cirrhosis of liver without ascites; K70.10 Alcoholic hepatitis without ascites; M79.7 Fibromyalgia; E87.6 Hypokalemia; E83.42 Hypomagnesemia; G43.909 Migraine, unspecified, not intractable, without status migrainosus; K21.9 Gastro-esophageal reflux disease without esophagitis; I10 Essential (primary) hypertension; K27.9 Peptic ulcer, site unspecified, unspecified as acute or chronic, without hemorrhage or perforation; D64.9 Anemia, unspecified; D69.59 Other secondary thrombocytopenia; Z79.899 Other long term (current) drug therapy; Z98.51 Tubal ligation status
CPT/HCPCS: 36415; 80048; 80053; 80307; 81003; 82140; 83690; 83735; 85025; 85610; 85730; 86850; 86900; 86901; C9113; J2060; J2405; J3360; J3411; J3475; J7042; J7050; Q0162

== ENCOUNTER 2019-01-24 22:48 | Observation (INO) | payer SELFPAY ==
[~2019-01-24 22:48] MED LIST changes: +ISOVUE-370 76%-LOCM 1 ML ONE; -PHENYLEPHRINE-NS 100 MCG/ML 10 ML SYRINGE ONE; -PROPOFOL 200 MG/20 ML VIAL ONE; -Succinylcholine Chloride 20 MG/ML 10 ml SYRINGE FS ONE
[2019-01-24] MEDS ORDERED: Ondansetron PF 4 MG/2 ML Vial ONE (23:26)
[2019-01-24 23:36] LABS: Hemoglobin 8.9 g/dL (12.0-16.0); Mean Corpuscular HGB CONC 31.5 g/dL (32.0-36.0); Mean Corpuscular Hemoglobin 24.8 pg (27.0-31.0); Mean Corpuscular Volume 78.6 fL (78.0-98.0); Mean Platelet Volume 7.6 fL (7.4-10.4); Platelet Count 194 thou/uL (130-400); RBC Distribution Width 18.8 % (11.5-14.5); Red Blood Cell (RBC) Count 3.58 mill/uL (4.20-5.40); White Blood Cell (WBC) Count 8.3 thou/uL (4.8-10.8)
[2019-01-24 23:38] LABS: BHCG - Serum Negative (NEGATIVE); Pregs Control Background? CLEAR/WHITE (CLR/WHITE); Pregs Control Bar Appear? YES (CONTROL BAR)
[2019-01-24 23:52] LABS: ALT (SGPT) 25 U/L (8-55); AST (SGOT) 69 U/L (5-34); Albumin 3.7 g/dL (3.5-5.0); Alkaline Phosphatase 158 U/L (40-150); Anion Gap 15 mmol/L (10-20); BUN (Urea Nitrogen) Less than 4 mg/dL (9.8-20.1); Bilirubin, Total 0.8 mg/dL (0.2-1.2); Calc. Creatinine Clearance 0 mL/min (70-130); Calcium 8.7 mg/dL (7.8-10.44); Carbon Dioxide 22 mmol/L (22-29); Chloride 102 mmol/L (98-107); Estimated GFR-MDRD Greater than 90; Glucose 106 mg/dL (70-105); Lipase 49 U/L (8-78); Potassium 3.6 mmol/L (3.5-5.1); Protein, Total 7.7 g/dL (6.0-8.3); Sodium 135 mmol/L (136-145)
[2019-01-24 23:53] LABS: Bilirubin Negative (Negative); Blood, Urine Trace (Negative); Clarity CLEAR (Clear); Glucose, Urine (Dipstick) Negative (Negative); Leukocyte Negative (Negative); Nitrite Negative (Negative); Protein, Urine (Dipstick) Negative (Neg-Trace); Urobilinogen 0.2 mg/dL (0.2-1.0)
[2019-01-24 23:57] LABS: Hypochromia SLIGHT = 6-15 cells (100X) (0-5/hpf); Lymphocytes 42 % (21-51); MDiff Complete? YES; Monocytes 6 % (0-10); Neutrophil 52 % (42-75); Platelet Morphology Comment Appears Adequate
[2019-01-25 00:08] LABS: Bacteria/HPF None Seen HPF (None Seen); Hyaline Casts/LPF NONE SEEN LPF (0-3 Hyaline); RBC/HPF 0-3 HPF (0-3); Specific Gravity, Urine 1.002 (1.002-1.036); Squamous Epithelial 0-3 HPF (0-3); WBC/HPF 0-3 HPF (0-3)
[2019-01-25] MEDS ORDERED: Pantoprazole 40 MG VIAL ONE (01:11)
[2019-01-25] MEDS ORDERED: Ondansetron ODT 4 MG TAB SL PRN (02:32)
[2019-01-25] MEDS: Sodium Chloride 0.9% 1,000 ML IV SCH ×4 (03:07→20:34)
[2019-01-25 03:15] VITALS: BMI 30.3
[2019-01-25 03:21] LABS: Lactic Acid 3.6 mmol/L (0.5-2.2)
[2019-01-25] MEDS ORDERED: traMADol HCl 50 MG TAB PO SCH (04:15)
--- NOTE | 2019-01-25 08:08 | CT ---
ABDOMEN AND PELVIC CT SCAN WITH IV CONTRAST: Date: 01/24/19 HISTORY: Pain and tenderness. COMPARISON: 09/14/18. FINDINGS: Minimal right-sided pleural thickening and some pleural based linear parenchymal changes in the right base, probably subsegmental atelectasis or mild chronic change. Moderate size hiatal hernia. Free in traperitoneal fluid, primarily around the liver. Borderline distended gallbladder with borderline gal lbladder wall thickening, but no pericholecystic fat stranding, overall stable from the prior study. Evidence for abnormal colonic wall thickening, including the right colon and left colon, evidence for nonspecific colitis. Borderline dilated loops of small bowel with some minimal wall thickening, poss ibly nonspecific enteritis. Pancreas, spleen, and adrenal glands are unremarkable. No renal calculus or acute obstruction. Moderate urinary bladder distention. IMPRESSION: 1. Abnormal colonic wall thickening, evidence for nonspecific colitis. 2. Minimally dilated small bowel loops with some wall thickening, evidence for nonspecific enteritis or ileus. 3. Somewhat distended urinary bladder. 4. Moderate size hiatal hernia. 5. Free intraperitoneal fluid, particularly around right lobe of liver, stable. 6. Colon appears stable. 7. Small bowel is much less dilated than on prior study. 8. Some nonspecific mesenteric fat stranding, stable. 9. The amount of ascitic fluid is less than on the prior study. 10. Other findings as above. POS: DAMON
[2019-01-25 08:48] LABS: Hemoglobin 7.7 g/dL (12.0-16.0); Mean Corpuscular HGB CONC 30.6 g/dL (32.0-36.0); Mean Corpuscular Hemoglobin 24.7 pg (27.0-31.0); Mean Corpuscular Volume 80.9 fL (78.0-98.0); Mean Platelet Volume 7.6 fL (7.4-10.4); Platelet Count 153 thou/uL (130-400); RBC Distribution Width 18.6 % (11.5-14.5)
[2019-01-25] MEDS: Lorazepam 0.5 MG TAB PO PRN ×3 (08:48→22:27)
[2019-01-25] MEDS: Multivitamins, Adult 10 ML, Folic Acid 1 MG, Thiamine HCl 100 MG in Dextrose 5 %-0.45 %... IV SCH (08:50)
[2019-01-25] MEDS: Ondansetron PF 4 MG/2 ML Vial IVP PRN ×3 (08:57→22:23)
[2019-01-25 09:00] LABS: Anion Gap 15 mmol/L (10-20); BUN (Urea Nitrogen) Less than 4 mg/dL (9.8-20.1); Calc. Creatinine Clearance 157 mL/min (70-130); Calcium 8.2 mg/dL (7.8-10.44); Carbon Dioxide 22 mmol/L (22-29); Chloride 106 mmol/L (98-107); Estimated GFR-MDRD Greater than 90; Glucose 88 mg/dL (70-105); Potassium 3.6 mmol/L (3.5-5.1); Sodium 139 mmol/L (136-145)
--- NOTE | 2019-01-25 09:11 | HP ---
PRIMARY CARE PROVIDER: [facility]. CHIEF COMPLAINT: Abdominal pain. HISTORY OF PRESENT ILLNESS: Ms. Osorio is a pleasant 53-year-old lady, who was seen at [facility] on January 25, 2019. She was hospitalized at this facility from January 12 to of this year for upper GI bleed, most likely secondary to Snehal-Crews tear and alcohol withdrawal. She reports that she was doing well until 4 days ago. She has been drinking 12 pack of beers every day, last alcohol use was around 8:00 p.m. yesterday. She reports that over the last 4 days, she has had bright red blood per rectum, initially small in amount, now increased. She also reports pain across her mid abdomen, constant, dull, no known aggravating or relieving factors, nonradiating, 9/10 at its worst. She presented to the emergency room both because of abdominal pain and rectal bleeding. REVIEW OF SYSTEMS: All other systems reviewed and found to be negative. PAST MEDICAL HISTORY: Alcohol abuse, portal hypertension, hypertension, chronic lower back pain, peptic ulcer disease, fibromyalgia, and migraine headaches. PAST SURGICAL HISTORY: Multiple EGDs, left ankle surgery, endometrial ablation, breast augmentation, tubal ligation, and bladder suspension. SOCIAL HISTORY: She drinks 12 pack of beers every day. She denies tobacco use or recreational drug use. FAMILY HISTORY: Positive for coronary artery disease. ALLERGIES: NO KNOWN DRUG ALLERGIES. CURRENT MEDICATIONS: 1. Tegretol 200 mg 2 times a day. 2. Lactulose 20 g daily. 3. Neurontin 300 mg at bedtime. 4. Thiamine 100 mg daily. 5. Folic acid 1 mg daily. 6. Melatonin 10 mg at bedtime. 7. Propranolol 10 mg 2 times a day. 8. Protonix 40 mg 2 times a day. PHYSICAL EXAMINATION: GENERAL: Ms. Osorio is awake and alert, not in acute distress. VITAL SIGNS: Blood pressure is 118/57, pulse 117, respiratory rate 24, oxygen saturation 94% on room air, and she is afebrile. EYES: No scleral icterus. She has conjunctival pallor. ENT: Dry mucosal membranes. No oropharyngeal erythema or exudates. NECK: Supple, nontender. Trachea is midline. RESPIRATORY: Accessory muscles of breathing are not active. Chest wall movements are symmetric bilaterally. Lungs are clear to auscultation without wheeze, rhonchi, or crepitations. CARDIOVASCULAR: S1 and S2 are heard, tachycardic and regular. Peripheral pulses are palpable. No carotid bruit. No pericardial rub. ABDOMEN: Soft. She has epigastric tenderness. No guarding or rigidity. Bowel sounds are heard. NEUROLOGIC: Cranial nerves II through XII intact. Deep tendon reflexes 2+. SKIN: No rashes or subcutaneous nodules. MUSCULOSKELETAL: Power is 5/5 in all 4 extremities. LYMPHATIC: No cervical lymphadenopathy. PSYCHIATRIC: Normal mood. Normal affect. The patient is oriented to person, place, and time. LABORATORY DATA AND INVESTIGATIONS: Ms. Osorio's labs and investigations were reviewed. She had 12-lead electrocardiogram, which showed normal sinus rhythm. No ST changes to suggest an acute coronary syndrome. She also had CT scan of the abdomen and pelvis, report is pending. She has normal white count; normocytic anemia with hemoglobin of 8.9, last known hemoglobin 8.2 on January 14, 2019; and normal platelet count. Decreased sodium of 135, normal potassium, creatinine 0.54, normal total bilirubin, elevated AST of 69, normal ALT, and elevated alkaline phosphatase of 158. Serum test is negative. Lactic acid is elevated at 3.6. Plasma alcohol level was elevated at 421 at 2315 hours yesterday. ASSESSMENT AND PLAN: Ms. Osorio is a pleasant 53-year-old lady, who was seen at [facility] on January 25, 2019. Her problem list includes: 1. Abdominal pain: Etiology unclear, most likely secondary to gastritis, given the location. Alternatively, it could be secondary to pancreatitis. Her lipase level is normal, it could be secondary to chronic pancreatitis. She will be treated with pain medications as needed. 2. Gastrointestinal bleed: She is presenting with lower gastrointestinal bleed. Her hemoglobin is stable, we will recheck. We will consult GI Service for opinion. She is well known to Gastroenterology Service here. 3. Hypertension: We will continue home medications, monitor vital signs and titrate antihypertensives as needed. 4. Migraine headaches: Appear to be stable. Many thanks for allowing me to participate in your patient's care. Please feel free to contact me with any questions or concerns. LEVEL OF RISK: Moderate. LEVEL OF COMPLEXITY: Moderate. Job ID: [id number]
[2019-01-25 11:30] LABS: Eosinophils 4 % (0-10); Hypochromia MODERATE=16-30 cells (100X) (0-5/hpf); Lymphocytes 29 % (21-51); MDiff Complete? YES; Microcytosis SLIGHT = 6-15 cells (100X) (0-5/hpf); Monocytes 20 % (0-10); Neutrophil 40 % (42-75); Platelet Morphology Comment Appears Adequate; Reactive Lymphocytes 7 % (0-10); Target Cells SLIGHT = 2-5 cells (100X) (0-1/hpf)
[2019-01-25] MEDS: traMADol HCl 50 MG TAB PO PRN ×2 (14:36→20:31)
--- NOTE | 2019-01-25 15:55 | CON ---
DATE OF CONSULTATION: 01/25/2019 REFERRING DOCTOR: Dr. Masoud Newman, [facility]. REASON FOR CONSULTATION: Abdominal pain and hematochezia. HISTORY OF PRESENT ILLNESS: Ms. Aicha Osorio is a 53-year-old female with history of chronic alcohol abuse over the years. She is a frequent flyer. She had been admitted to the hospital several times over the years. In fact, she was admitted to the hospital, this is the 6th time in the last 4 months. She was here in December of 2018 and also in January of 2019. She was discharge home just about 8 days ago from this hospital. The patient is known to this service before and she has been seen by Dr. Cline, Dr. Curtis, and . She usually comes with hematemesis and melena. She has had multiple EGDs and every time she had an EGD, she was found to have a Snehal-Crews tear and also has had some erosive esophagitis and also ulcer at GE juncture. The patient was seen by Dr. Masoud Curtis at the last admission. This was about 10 days ago. He did not feel any repeat endoscopy is necessary as she has had the same findings every time. However, this time she comes with diffuse abdominal cramping pain and also diarrhea and hematochezia. She has no nausea and no vomiting. No hematemesis or melena. The bleeding is bright red in color. She tells me that she had a colonoscopy about 2 years ago in this hospital. However, going on the [employer], I could not see any report of colonoscopy. All the scopes were mostly EGDs for recurrent upper GI bleeding. The patient also comes shaky and tremulous from alcohol withdrawal. She does drink at least two 6 packs of beer every day. The last drink she had was yesterday. She is very shaky and nervous. She is on Ativan IV p.r.n. She complains of abdominal cramping and diarrhea. She has had 2 or 3 stools today. Blood is bright red and not melanous. She has no similar episodes in the past. However, she tells me that she had a colonoscopy 2 years ago and was told to have colitis. However, I could not find the report from the [facility] about her last colonoscopy. She also is anemic during the admission. Her CBC also showed anemia. When she was here on 12/26/2018, she had a CBC with hemoglobin 7.4, and last admission on 01/12/2019, hemoglobin 7.3 and . Her albumin is pretty low. Yesterday, hemoglobin was 8.9 and hematocrit was 28.1. Today's hemoglobin is 7.7 and hematocrit 24.1. She has no relevant symptoms. ALLERGIES: IODINE. SOCIAL HISTORY: The patient is a smoker. Does drink alcohol heavily. She drinks 2 packs every day. No history of drug abuse. MEDICAL ILLNESSES: 1. Most likely, she has liver cirrhosis from the CAT scan findings and ascites, which has been tapped in the past. 2. Hypertension. 3. History of mitral valve prolapse. 4. Intermittent ablation. 5. Multiple EGDs over the years. 6. Tubal ligation. 7. Breast augmentation. 8. Left ankle fracture with surgery by Dr. Dickson in 2017. FAMILY HISTORY: Both parents had heart disease and hypertension. No family history of any liver cancer, stomach cancer, or colon cancer. MEDICATIONS: Reviewed. REVIEW OF SYSTEMS: A 10-point system review; [employer]: No history of seizure disorder. No chronic headache. No dizziness. No syncope. No blackouts. RESPIRATORY SYSTEM: No history of chronic cough, hemoptysis, or dyspnea. CARDIOVASCULAR SYSTEM: No chest pain. No palpitation. No dyspnea, orthopnea, or PND. GI: Abdominal pain, diarrhea, and hematochezia at this time. No nausea or vomiting. No hematemesis. : No dysuria, hematuria or frequent urination. MUSCULOSKELETAL: Not known. NEUROENDOCRINE: Not known. HEMATOLOGIC: Not known. PHYSICAL EXAMINATION: GENERAL: She appears very comfortable. She is very nervous, tremulous, and shaky. VITAL SIGNS: Temperature 98.4 degrees Fahrenheit, pulse is 117, and blood pressure is 118/57. HEENT: Conjunctivae clear. NECK: Supple. No adenitis or thyromegaly noted. CARDIOVASCULAR SYSTEM: First and second heart sounds heard. LUNGS: Clear to auscultation. ABDOMEN: Soft. Abdominal exam is very benign, but she says she is a kind of sore all over. There is no rebound or guarding. Her bowel sounds are active. EXTREMITIES: Reveal no edema. [employer]: Within normal limits. LABORATORY DATA: The most recent lab data from this morning, WBC is 6000, hemoglobin 7.7, hematocrit 24.1, MCV 80.9, platelet count 153,000, polymorphs 52, and lymphocytes 42. Chem-7, sodium 139, potassium 3.6, chloride 106, bicarb 22, BUN is less than 4, creatinine is 0.54, and glucose is 106. Lactic acid is 3.6, AST 16, ALT 25, alkaline phosphatase 158, and bilirubin 0.8. CLINICAL IMPRESSION: 1. A 53-year-old female with chronic alcohol abuse has been admitted multiple times to this hospital. This is the 5th or 6th admission this year and every time she comes with melena and hematemesis. She has multiple esophagogastroduodenoscopies revealing esophageal tear at the gastroesophageal junction, erosive esophagitis, and erosive gastritis. On the last admission, she was seen by Dr. Masoud Curtis, who did not feel any repeat endoscopy is necessary. Now, she comes with hematochezia and does not have any melena or vomiting of blood. She did have a colonoscopy 2 years ago, but I could not find the report in the [employer]. She was told to have colitis. 2. Chronic alcohol abuse. 3. Liver cirrhosis from alcohol abuse. 4. Hypertension. 5. History of mitral valve prolapse. 6. Endometrial ablation. 7. Breast augmentation. 8. Tubal ligation. 9. Left ankle fracture surgery. RECOMMENDATIONS: We will start the patient on librium because of alcohol withdrawal. We will also add thiamine. Initially, I did not plan for a colonoscopy, but after I could not find the report for the colonoscopy in the [employer], I decided to do a colonoscopy hopefully tomorrow. We will keep the patient on clear liquid diet and prep the patient today and hopefully colonoscopy can be done tomorrow. Job ID: [id number]
[2019-01-25] MEDS ORDERED: Ondansetron ODT 4 MG TAB PO PRN (22:08)
[2019-01-26] MEDS: traMADol HCl 50 MG TAB PO PRN ×2 (02:53→09:19)
[2019-01-26] MEDS: Ondansetron PF 4 MG/2 ML Vial IVP PRN ×2 (03:02→07:39)
[2019-01-26] MEDS: Lorazepam 0.5 MG TAB PO PRN (04:33)
[2019-01-26] MEDS ORDERED: GoLYTELY 4,000 ml Bottle PO SCH (06:00)
[2019-01-26 06:35] LABS: #Eosinphils 0.1 thou/uL (0.0-0.7); #Lymphocytes 1.3 thou/uL (1.20-3.40); #Monocytes 0.5 thou/uL (0.11-0.59); #Neutrophils 1.9 thou/uL (1.40-6.50); %Eosinophils 2.6 % (0.0-10.0); %Lymphocytes 34.6 % (21.0-51.0); %Monocytes 12.9 % (0.0-10.0); %Neutrophils 48.9 % (42.0-75.0); Hemoglobin 6.9 g/dL (12.0-16.0); Mean Corpuscular HGB CONC 31.5 g/dL (32.0-36.0); Mean Corpuscular Hemoglobin 25.4 pg (27.0-31.0); Mean Corpuscular Volume 80.7 fL (78.0-98.0); Mean Platelet Volume 8.5 fL (7.4-10.4); Platelet Count 70 thou/uL (130-400); RBC Distribution Width 18.5 % (11.5-14.5); White Blood Cell (WBC) Count 3.9 thou/uL (4.8-10.8)
[2019-01-26 06:45] LABS: Anion Gap 11 mmol/L (10-20); BUN (Urea Nitrogen) Less than 4 mg/dL (9.8-20.1); Calc. Creatinine Clearance 166 mL/min (70-130); Calcium 8.5 mg/dL (7.8-10.44); Carbon Dioxide 22 mmol/L (22-29); Chloride 102 mmol/L (98-107); Estimated GFR-MDRD Greater than 90; Glucose 85 mg/dL (70-105); Potassium 3.2 mmol/L (3.5-5.1); Sodium 132 mmol/L (136-145)
[2019-01-26] MEDS ORDERED: Lorazepam 1 MG TAB PO PRN (08:22)
--- NOTE | 2019-01-26 08:28 | PDOC.PN ---
- Subjective Encounter Start Date: 01/26/19 Encounter Start Time: 08:26 Subjective: Patient with abdominal discomfort due to prepping for colonoscopy. -: States she was drinking it too fast and has vomited x 1. -: Now taking small sips at a time. No hematemesis. Has not had any bowel movement yet this morning. Scheduled to undergo colonoscopy this afternoon. Hgb now 6.9, patient states she does not think she has had a transfusion in the last 3 months. Last one was 5 months ago. Reports persistent tremors in hands but much improved compared to yesterday. - Objective Vital Signs & Weight: Vital Signs (12 hours) Temp Pulse Resp BP BP Pulse Ox 01/26/19 07:19 98.7 F 130 H 24 H 154/75 H 95 01/26/19 03:19 131/69 01/26/19 02:55 98.8 F 103 H 17 131/69 97 01/26/19 00:00 130/65 01/25/19 23:20 98.3 F 103 H 16 130/65 96 Weight Admit Weight 182 lb 4.8 oz Weight 181 lb 3.2 oz I&O: 01/25/19 01/26/19 01/27/19 06:59 06:59 06:59 Intake Total 630 3542 Output Total 1800 2500 Balance -1170 1042 Result Diagrams: 01/26/19 06:11 01/26/19 06:11 Phys Exam - Physical Examination Constitutional: NAD HEENT: PERRLA, oral pharynx no lesions Neck: supple, full ROM Respiratory: clear to auscultation bilateral Cardiovascular: RRR Gastrointestinal: soft, no distention no guarding and no rigidity, mild discomfort to palpation Musculoskeletal: no edema Neurological: normal sensation, moves all 4 limbs Psychiatric: normal affect, A&O x 3 Skin: no rash (Pale ) Dx/Plan (1) Alcohol dependence with withdrawal Code(s): F10.239 - ALCOHOL DEPENDENCE WITH WITHDRAWAL, UNSPECIFIED Status: Acute Qualifiers: Complication of substance-induced condition: uncomplicated Qualified Code(s ): F10.230 - Alcohol dependence with withdrawal, uncomplicated (2) Anemia due to acute blood loss Code(s): D62 - ACUTE POSTHEMORRHAGIC ANEMIA Status: Acute (3) Alcoholic cirrhosis of liver Code(s): K70.30 - ALCOHOLIC CIRRHOSIS OF LIVER WITHOUT ASCITES Status: Chronic (4) Anxiety and depression Code(s): F41.9 - ANXIETY DISORDER, UNSPECIFIED; F32.9 - MAJOR DEPRESSIVE DISORDER, SINGLE EPISODE, UNSPECIFIED Status: Chronic (5) Chronic alcoholism Code(s): F10.20 - ALCOHOL DEPENDENCE, UNCOMPLICATED Status: Chronic - Plan cont current plan of care Hgb 6.9, have requested 1 unit PRBCs. -: Continue to monitor BP. -: Ativan switched from PO to IV and increased to 1 mg -: Continue prep for colonoscopy later today. -: Further management of GIB as per Dr. Lin. * . Review of Systems - Review of Systems Constitutional: sweats, malaise. negative: fever, chills, weakness, other Eyes: negative: Pain, Vision Change, Conjunctivae Inflammation, Eyelid Inflammation, Redness, Other ENT: negative: Ear Pain, Ear Discharge, Nose Pain, Nose Discharge, Nose Congestion, Mouth Pain, Mouth Swelling, Throat Pain, Throat Swelling, Other Respiratory: negative: Cough, Dry, Shortness of Breath, Hemoptysis, SOB with Excertion, Pleuritic Pain, Sputum, Wheezing Cardiovascular: negative: chest pain, palpitations, orthopnea, paroxysmal nocturnal dyspnea, edema, light headedness, other Gastrointestinal: Vomiting, Abdominal Pain (Abdominal discomfort/cramping, tolerable). negative: Nausea, Diarrhea, Constipation, Melena, Hematochezia, Other Genitourinary: negative: Dysuria, Frequency, Incontinence, Hematuria, Retention , Other Musculoskeletal: negative: Neck Pain, Shoulder Pain, Arm Pain, Back Pain, Hand Pain, Leg Pain, Foot Pain, Other Skin: Other. negative: Rash (Pale appearance), Lesions, Giovanni, Bruising Neurological: Other (Hand tremors ) - Medications/Allergies Allergies/Adverse Reactions: Allergies Allergy/AdvReac Type Severity Reaction Status Date / Time No Known Drug Allergies Allergy Verified 01/25/19 02:24 Medications: Current Medications Chlordiazepoxide HCl (Librium) 10 mg PO TID [facility] Last Admin: 01/26/19 07:38 Dose: 10 mg Multivitamins 10 ml/ Folic Acid 1 mg/ Thiamine HCl 100 mg / Dextrose/Sodium Chloride 1,011.2 mls @ 100 mls/hr IV 0900 [facility] Last Admin: 01/25/19 08:50 Dose: 1,011.2 mls Sodium Chloride (Normal Saline 0.9%) 1,000 mls @ 75 mls/hr IV .[id number] [facility] Last Admin: 01/25/19 20:34 Dose: 1,000 mls Lorazepam (Ativan) 1 mg SLOW IVP Q4H PRN PRN Reason: Anxiety/Agitation Ondansetron HCl (Zofran) 4 mg IVP Q4H PRN PRN Reason: Nausea/Vomiting Last Admin: 01/26/19 07:39 Dose: 4 mg Ondansetron HCl (Zofran Odt) 4 mg PO Q4H PRN PRN Reason: Nausea/Vomiting Polyethylene Glycol/Electrolytes (Golytely) 4,000 ml PO 0600 [facility] Stop: 01/26/19 12:00 Last Admin: 01/26/19 06:18 Dose: 4,000 ml Sodium Chloride (Flush - Normal Saline) 10 ml IVF Q12HR [facility] Last Admin: 01/25/19 20:42 Dose: Not Given Sodium Chloride (Flush - Normal Saline) 10 ml IVF PRN PRN PRN Reason: Saline Flush Thiamine HCl (Thiamine) 100 mg PO DAILY STEPH Tramadol HCl (Ultram) 50 mg PO Q6H PRN PRN Reason: Pain Last Admin: 01/26/19 02:53 Dose: 50 mg
[2019-01-26] MEDS: Multivitamins, Adult 10 ML, Folic Acid 1 MG, Thiamine HCl 100 MG in Dextrose 5 %-0.45 %... IV SCH (09:20)
[2019-01-26] MEDS: Thiamine 100 MG TAB PO SCH (10:08)
[2019-01-26] MEDS: Lorazepam 2 MG/ML VIAL SLOW IVP PRN ×3 (10:27→22:04)
[2019-01-26] MEDS: Sodium Chloride 0.9% 1,000 ML IV SCH (11:53)
[2019-01-26] MEDS ORDERED: PROPOFOL 200 MG/20 ML VIAL ONE (13:10)
[2019-01-26] MEDS ORDERED: PROPOFOL 80 ML ONE (16:41)
[2019-01-26] MEDS ORDERED: Midazolam HCl 2 mg/2 ml Vial ONE (16:56)
[2019-01-26] MEDS ORDERED: Promethazine HCl 25 MG/ML VIAL IM PRN (17:00)
[2019-01-26] MEDS ORDERED: Promethazine HCl 25 MG/ML VIAL SLOW IVP PRN (17:00)
[2019-01-26] MEDS ORDERED: Ondansetron HCl/PF 4 MG/2 ML Vial IVP PRN (17:00)
[2019-01-26] MEDS ORDERED: Meperidine HCl/PF 25 MG/ML VIAL SLOW IVP PRN (17:00)
[2019-01-27] MEDS: Sodium Chloride 0.9% 1,000 ML IV SCH ×2 (00:59→14:45)
[2019-01-27] MEDS: traMADol HCl 50 MG TAB PO PRN (02:54)
[2019-01-27] MEDS: Lorazepam 2 MG/ML VIAL SLOW IVP PRN ×2 (06:18→14:54)
[2019-01-27 06:32] LABS: #Eosinphils 0.3 thou/uL (0.0-0.7); #Lymphocytes 1.4 thou/uL (1.20-3.40); #Monocytes 0.6 thou/uL (0.11-0.59); #Neutrophils 1.9 thou/uL (1.40-6.50); %Basophils 0.6 % (0.0-1.0); %Eosinophils 6.1 % (0.0-10.0); %Lymphocytes 33.2 % (21.0-51.0); %Monocytes 13.7 % (0.0-10.0); %Neutrophils 46.4 % (42.0-75.0); Mean Corpuscular HGB CONC 31.9 g/dL (32.0-36.0); Mean Corpuscular Hemoglobin 25.7 pg (27.0-31.0); Mean Corpuscular Volume 80.5 fL (78.0-98.0); Mean Platelet Volume 9.7 fL (7.4-10.4); Platelet Count 85 thou/uL (130-400); Red Blood Cell (RBC) Count 3.12 mill/uL (4.20-5.40); White Blood Cell (WBC) Count 4.1 thou/uL (4.8-10.8)
[2019-01-27] MEDS: Multivitamins, Adult 10 ML, Folic Acid 1 MG, Thiamine HCl 100 MG in Dextrose 5 %-0.45 %... IV SCH (09:06)
[2019-01-27] MEDS: Thiamine 100 MG TAB PO SCH (09:06)
[2019-01-27 16:12] VITALS: BP 175/81; TEMP 98.7
--- NOTE | 2019-01-28 06:49 | OP ---
DATE OF PROCEDURE: 01/26/2019 OPERATIVE PROCEDURE: Colonoscopy. PREOPERATIVE DIAGNOSIS: A 53-year-old with hematochezia, undergoing colonoscopy. POSTOPERATIVE DIAGNOSES: Hemorrhoids and markedly hyperemic, erythematous rectal mucosa may be due to portal hypertension. There was no other pathology seen. No active bleeding seen. DESCRIPTION OF PROCEDURE: The patient was placed on her left lateral position and was given sedation by Anesthesia Department. A rectal exam was done before the scope was advanced into the rectum. No lesions felt on rectal exam. A Pentax video colonoscope was introduced into the rectum and advanced all the way to the cecum. The prep was excellent. The mucosa appears normal throughout the colon with normal vascular pattern. The appendiceal orifice, ileocecal wall, cecum with no pathology. Withdrawal of the scope from the cecum, ascending colon, hepatic flexure, no pathology seen. The transverse colon, splenic flexure, descending colon, sigmoid colon, no pathology. The rectal mucosa was very congested. Multiple erythematous spots seen almost similar to portal hypertensive gastropathy. She also has some prominent veins and rectal hemorrhoids. The above findings most likely portal hypertension. At the time of endoscopy, no active bleeding seen. RECOMMENDATIONS: 1. Discontinue n.p.o. 2. Low-salt diet. 3. Follow up hemoglobin and hematocrit. 4. The patient has no recurrence of bleeding, consider discharge home hopefully in the next day or two. Job ID: [id number]
== END 2019-01-27 16:44 | disposition home or self-care (01) ==
LOC: ERS 22:48 → 2SW 01-25 01:52
PROVIDERS: ADMIT Internal Medicine; ATTEND Internal Medicine
PROC: 0DJD8ZZ Inspection of Lower Intestinal Tract, Via Natural or Artificial Opening Endoscopic (ICD-10-PCS; principal; 2019-01-27)
DX: K92.1 Melena (principal); K64.9 Unspecified hemorrhoids; I10 Essential (primary) hypertension; G89.29 Other chronic pain; M54.5 Low back pain; K76.6 Portal hypertension; K31.89 Other diseases of stomach and duodenum; G43.909 Migraine, unspecified, not intractable, without status migrainosus; Z79.899 Other long term (current) drug therapy
CPT/HCPCS: 36415; 36430; 74177; 80048; 80053; 80307; 81003; 81015; 82274; 83605; 83690; 84484; 84703; 85025; 86850; 86900; 86901; 93005; 96361; 96365; 96366; 96374; 96375; 96376; C9113; G0378; J2060; J2250; J2405; J2704; J3411; J7042; P9016; Q0162; Q9966

== ENCOUNTER 2019-02-01 03:21 | Emergency (ER) | payer SELFPAY ==
[2019-02-01 04:02] LABS: Hemoglobin 9.4 g/dL (12.0-16.0); Mean Corpuscular HGB CONC 30.8 g/dL (32.0-36.0); Mean Corpuscular Hemoglobin 25.5 pg (27.0-31.0); Mean Corpuscular Volume 82.8 fL (78.0-98.0); RBC Distribution Width 18.5 % (11.5-14.5); Red Blood Cell (RBC) Count 3.68 mill/uL (4.20-5.40); White Blood Cell (WBC) Count 8.6 thou/uL (4.8-10.8)
[2019-02-01 04:26] LABS: Eosinophils 3 % (0-10); Lymphocytes 70 % (21-51); MDiff Complete? YES; Mean Platelet Volume 8.9 fL (7.4-10.4); Monocytes 6 % (0-10); Neutrophil 21 % (42-75); Platelet Count 115 thou/uL (130-400); Platelet Morphology Comment Appears Decreased; Target Cells SLIGHT = 2-5 cells (100X) (0-1/hpf)
[2019-02-01 04:28] LABS: ALT (SGPT) 18 U/L (8-55); AST (SGOT) 60 U/L (5-34); Albumin 3.9 g/dL (3.5-5.0); Alcohol 297 mg/dL (Less than 10); Alkaline Phosphatase 176 U/L (40-150); Anion Gap 15 mmol/L (10-20); BUN (Urea Nitrogen) 5 mg/dL (9.8-20.1); Calc. Creatinine Clearance 0 mL/min (70-130); Calcium 9.1 mg/dL (7.8-10.44); Carbon Dioxide 22 mmol/L (22-29); Chloride 107 mmol/L (98-107); Estimated GFR-MDRD 89; Globulin 4.2 g/dL (2.4-3.5); Glucose 108 mg/dL (70-105); Lipase 51 U/L (8-78); Potassium 3.4 mmol/L (3.5-5.1); Protein, Total 8.1 g/dL (6.0-8.3); Sodium 141 mmol/L (136-145)
[2019-02-01 06:36] LABS: Troponin I 0.011 ng/mL (< 0.028)
--- NOTE | 2019-02-01 07:42 | CT ---
CTA THORAX UTILIZING IV CONTRAST WITH 3D REFORMATTED IMAGING AND PE PROTOCOL: Date: 02/01/19 COMPARISON: Recent CT abdomen and pelvis dated 01/24/[address] of the thorax dated 10/10/16. FINDINGS: No definite central or segmental pulmonary embolus is evident. There is mild right basilar atelectasi s. No pleural effusion or pneumothorax is evident. There is a moderate hiatal hernia. There is wall t hickening involving the distal esophagus. There is cirrhotic morphology to the liver. There is mild free fluid in the upper abdomen near the li silvana. The gallbladder is mildly decompressed with accentuated gallbladder wall. There is a stable comp ression abnormality of T12. There is a superior end plate compression abnormality of T11 and T12, whi ch has been stable since 09/14/18. IMPRESSION: 1. No central or segmental pulmonary embolus. 2. Right basilar atelectasis. 3. Moderate hiatal hernia with wall thickening involving the distal esophagus, suspicious for underl alea gastroesophageal reflux disease and mild esophagitis. 4. Cirrhosis of the liver with mild ascites. 5. Chronic T11 and T12 superior end place compression abnormality. POS: BH
--- NOTE | 2019-02-01 08:02 | RAD ---
CHEST 1 VIEW: INDICATION: Shortness of breath. COMPARISON: Prior acute abdominal series dated 09/13/2018. FINDINGS: There is persistent elevation of the right hemidiaphragm. There is mild cardiomegaly which is stable . No confluent airspace opacity or pleural effusion is noted. No acute osseous abnormality is evide nt. IMPRESSION: Stable mild cardiomegaly. POS: BH
[2019-02-01] MEDS ORDERED: ISOVUE-370 76%-LOCM 1 ML ONE (11:15)
== END 2019-02-01 10:23 | disposition home or self-care (01) ==
LOC: ERS 03:21
DX: R06.02 Shortness of breath (principal); K21.9 Gastro-esophageal reflux disease without esophagitis; I10 Essential (primary) hypertension; F32.9 Major depressive disorder, single episode, unspecified
CPT/HCPCS: 36415; 71045; 71275; 80053; 80307; 83605; 83690; 84484; 85025; 85379; 87040; 93005; 96360; 96361; Q9966

== ENCOUNTER 2019-03-09 08:29 | Inpatient (IN) | payer SELFPAY ==
[2019-03-09] MEDS ORDERED: Lorazepam 1 MG TAB ONE (09:18)
[2019-03-09 09:21] LABS: Mean Corpuscular HGB CONC 30.6 g/dL (32.0-36.0); Mean Corpuscular Hemoglobin 24.7 pg (27.0-31.0); Mean Corpuscular Volume 80.7 fL (78.0-98.0); RBC Distribution Width 20.5 % (11.5-14.5); Red Blood Cell (RBC) Count 3.65 mill/uL (4.20-5.40); White Blood Cell (WBC) Count 4.2 thou/uL (4.8-10.8)
[2019-03-09] MEDS ORDERED: Famotidine/PF 20 mg/2ml Vial ONE (09:24)
[2019-03-09] MEDS ORDERED: Pantoprazole 40 MG VIAL ONE (09:25)
[2019-03-09 09:28] LABS: INR-International Normal Ratio 1.5; Prothrombin Time 18.5 SEC (12.0-14.7)
[2019-03-09 09:30] LABS: ALT (SGPT) 37 U/L (8-55); AST (SGOT) 193 U/L (5-34); Albumin 3.4 g/dL (3.5-5.0); Alkaline Phosphatase 160 U/L (40-150); Anion Gap 16 mmol/L (10-20); BUN (Urea Nitrogen) Less than 4 mg/dL (9.8-20.1); Bilirubin, Total 2.3 mg/dL (0.2-1.2); Calc. Creatinine Clearance 0 mL/min (70-130); Calcium 8.6 mg/dL (7.8-10.44); Carbon Dioxide 22 mmol/L (22-29); Chloride 104 mmol/L (98-107); Estimated GFR-MDRD Greater than 90; Globulin 3.9 g/dL (2.4-3.5); Glucose 79 mg/dL (70-105); Potassium 3.7 mmol/L (3.5-5.1); Protein, Total 7.3 g/dL (6.0-8.3); Sodium 138 mmol/L (136-145)
[2019-03-09 09:36] LABS: #Basophils 0.1 thou/uL (0.0-0.2); #Eosinphils 0.1 thou/uL (0.0-0.7); #Lymphocytes 2.1 thou/uL (1.20-3.40); #Monocytes 0.6 thou/uL (0.11-0.59); #Neutrophils 1.3 thou/uL (1.40-6.50); %Basophils 1.5 % (0.0-1.0); %Eosinophils 3.1 % (0.0-10.0); %Lymphocytes 49.5 % (21.0-51.0); %Monocytes 14.7 % (0.0-10.0); %Neutrophils 31.2 % (42.0-75.0); Hypochromia MODERATE=16-30 cells (100X) (0-5/hpf); Large Platelets SLIGHT; MDiff Complete? YES; Mean Platelet Volume 6.7 fL (7.4-10.4); Microcytosis SLIGHT = 6-15 cells (100X) (0-5/hpf); Ovalocytes SLIGHT = 2-5 cells (100X) (0-1/hpf); Platelet Count 41 thou/uL (130-400); Platelet Morphology Comment Appears Decreased; Polychromasia SLIGHT = 2-3 cells (100X) (0-2/hpf); Target Cells SLIGHT = 2-5 cells (100X) (0-1/hpf)
--- NOTE | 2019-03-09 10:59 | HP ---
PRIMARY CARE PHYSICIAN: [facility]. REASON FOR ADMISSION: Lower GI bleed. HISTORY OF PRESENT ILLNESS: A 53-year-old female, who is well known to our service. She had multiple admissions in past either for upper or lower GI bleed versus alcohol withdrawal and alcohol intoxication. She is drinking almost 12 beers every day in the morning to prevent withdrawal symptoms. For last two weeks, she was experiencing rectal bleeding with bowel movement. She denies any hemorrhoid. She denies any lower abdominal pain. For 2 weeks, she was having intermittent mild amount of blood with stool, but today she was having only latricia bright red blood per rectum with lower abdominal discomfort and nausea. She drank alcohol this morning. The patient was feeling dizzy, lightheaded, and very weak and that is why she decided to come to emergency room for evaluation. At this time, she does not have any vomiting or hematemesis. She denies any epigastric pain. She denies any fever, chills, or UTI symptoms. She denies any constipation. She denies any diarrhea. No history of syncope at this time. Today in the emergency room, the patient was vitals-platt stable. Her hemoglobin is 9.0. She received some fluid in the emergency room, and as the patient was hemodynamically stable, we decided to keep this patient in the hospital under medical floor. REVIEW OF SYSTEMS: CONSTITUTIONAL: Negative for weight loss or gain, ability to conduct usual activities. SKIN: Negative for rash, itching. EYES: Negative for double vision, pain. ENT/MOUTH: Negative for nose bleeding, neck stiffness, pain, tenderness. CARDIOVASCULAR: Negative for palpitations, dyspnea on exertion, orthopnea. RESPIRATORY: Negative for shortness of breath, wheezing, cough, hemoptysis, fever or night sweats. GASTROINTESTINAL: Negative for poor appetite, abdominal pain, heartburn, nausea, vomiting, constipation, or diarrhea. GENITOURINARY: Negative for urgency, frequency, dysuria, nocturia. MUSCULOSKELETAL: Negative for pain, swelling. NEUROLOGIC/PSYCHIATRIC: Negative for anxiety, depression. ALLERGY/IMMUNOLOGIC: Negative for skin rash, bleeding tendency. Please see my HPI for pertinent positive and negative. All other review of systems reviewed and negative except as mentioned in HPI. PAST MEDICAL HISTORY: Chronic alcoholism, alcoholic cirrhosis, portal hypertension, history of esophageal varices, hypertension, chronic low back pain, peptic ulcer disease, polysubstance abuse, migraine headache, and fibromyalgia. PAST PSYCHIATRIC HISTORY: Medication noncompliance. PAST SURGICAL HISTORY: Endometrial ablation, breast augmentation, tubal ligation, bladder suspension, and left ankle surgery. SOCIAL HISTORY: The patient lives at home with her . She drinks 12 beers everyday basis. She denies any tobacco or other illicit drug abuse at this point. FAMILY HISTORY: Positive for coronary artery disease. ALLERGIES: NO KNOWN DRUG ALLERGY. EMERGENCY ROOM COURSE: The patient has received Protonix 40 mg, Pepcid 20 mg, IV fluid, and lorazepam 1 mg. CURRENT HOME MEDICATIONS: The patient does not have any medication with her at this point, but the patient was on following medication; 1. Calcium carbonate one tablet daily. 2. Lactulose 20 g daily. 3. Magnesium oxide 500 mg daily. 4. Melatonin 10 mg p.o. nightly. 5. Tramadol 50 mg q.8 hourly p.r.n. 6. Tegretol 200 mg b.i.d. 7. Vitamin B12 1000 mcg p.o. daily. 8. Folic acid 1 mg daily. 9. Gabapentin 300 mg p.o. at bedtime. 10. Protonix 40 mg daily. 11. Multivitamin one tablet daily. 12. Inderal 10 mg b.i.d. 13. Thiamine 100 mg p.o. daily. PHYSICAL EXAMINATION: VITAL SIGNS: Currently, blood pressure 133/64, pulse 82, respiratory rate 17, temperature 98.5, saturation 96% on room air, and weight 35.8 kg. GENERAL: The patient is currently alert and awake. No obvious acute distress. HEENT: Head; normocephalic, atraumatic. Eyes; pupils round and reactive to light. Extraocular muscle intact. ENT; oropharynx within normal limit. Moist mucous membranes. No oral lesion. No pharyngeal erythema. No exudate. NECK: Supple. No JVD. No thyromegaly. No carotid bruit. No jugular venous distention. LUNGS: Clear to auscultation without any rhonchi or rales. CARDIAC: S1 and S2 regular. No murmur elicited. No gallop. No rub. ABDOMEN: Soft. Vague abdominal discomfort noted in lower part, but no peritoneal sign. No guarding. No rigidity. No rebound. BACK: Unremarkable. No point tenderness. Upper extremity, passive movement of all joints are normal. Lower extremity, no edema. Good distal pulsation. No calf tenderness. SKIN: No skin rash. HEMATOLOGICAL SYSTEM: No lymphadenopathy. NEUROLOGIC: The patient is alert and oriented x3. Cranial nerve intact. Motor and sensation within normal limits. No cerebellar sign. Plantar bilateral flexor. LABORATORY DATA: CBC; WBC 4.2, hemoglobin 9.0, and platelet 41. INR 1.5. BMP; sodium 138, potassium 3.7, chloride 104, carbon dioxide 22, anion gap 16, BUN 4, creatinine 0.56, glucose 79, and calcium 8.6. LFT; bilirubin 2.3, AST 193, ALT 37, alkaline phosphatase 160, and albumin 3.4. Alcohol level 318. ASSESSMENT AND PLAN: 1. Lower gastrointestinal bleed. The patient has 2-week history of lower gastrointestinal bleed, intermittent and gotten worse today. Differential diagnosis is internal hemorrhoid bleed versus diverticular bleed. Arteriovenous malformation is also possibility and varicosity in rectal and colon area from portal hypertension is also possible. At this point, her hemoglobin is stable. She does not need any blood transfusion, but we will monitor H and H every 6 hourly. If her hemoglobin drops below 7, then we will consider transfusion. We will consult family and consumer education teacher for possible evaluation with colonoscopy. We will keep her on clear liquid diet only, and in case, if she goes for colonoscopy, then she will need colon preparation tonight. We will also continue with Protonix 40 mg IV daily. 2. Anemia. Currently, hemoglobin is 9. Her baseline hemoglobin is in 7 to 8 range. Does not see any drop in her hemoglobin, but we will continue to monitor H and H. The patient also has component of microcytic anemia from alcoholism. 3. Leukopenia and thrombocytopenia, likely due to alcoholism and cirrhosis. 4. Coagulopathy, due to liver disease from alcoholism. 5. Abnormal LFT with AST more than ALT, likely due to alcoholism with history of alcohol cirrhosis and portal hypertension. 6. Chronic alcoholism. We will continue with banana bag while in hospital. The patient is at high risk for alcohol withdrawal and that is why we will continue with Ativan 1 mg p.o. or IV q.6 hourly p.r.n. 7. History of alcoholic cirrhosis with esophageal varices. We will keep her on Protonix 40 mg IV daily. We will monitor. 8. Deep venous thrombosis prophylaxis, SCD boots. No Lovenox because of bleeding. 9. Gastrointestinal prophylaxis. The patient is already on already kept on Protonix 40 mg IV daily. CODE STATUS: The patient is full code. The patient's is surrogate decision maker. DISPOSITION PLAN: Based on clinical course, we are expecting the patient's stay in hospital more than 2 midnights. Plan of care discussed with the patient in detail. Job ID: [id number]
[2019-03-09] MEDS ORDERED: Bisacodyl 10 MG SUPP PR PRN (11:18)
[2019-03-09] MEDS ORDERED: Bisacodyl 5 MG TAB PO PRN (11:18)
[2019-03-09] MEDS ORDERED: Calcium Carbonate 500 MG ChewTAB PO PRN (11:18)
[2019-03-09] MEDS ORDERED: Ondansetron ODT 4 MG TAB PO PRN (11:30)
[2019-03-09] MEDS ORDERED: Lorazepam 2 MG/ML VIAL SLOW IVP PRN (11:30)
[2019-03-09 11:49] VITALS: BMI 28.3
[2019-03-09] MEDS: Multivitamins, Adult 10 ML, Folic Acid 1 MG, Thiamine HCl 100 MG in Dextrose 5 %-0.45 %... IV SCH (12:23)
[2019-03-09] MEDS: Lorazepam 1 MG TAB PO PRN ×3 (13:35→23:41)
--- NOTE | 2019-03-09 15:23 | CON ---
DATE OF CONSULTATION: 03/09/2019 REASON FOR CONSULTATION: Rectal bleeding. HISTORY OF PRESENT ILLNESS: Aicha Osorio is a 53-year-old woman, well known to the GI Service. She is a patient of Dr. Maciel Stewart. I have seen her and other GI providers have seen her multiple times over the past 6 months for admissions related to upper gastrointestinal bleeding. She usually presents with hematemesis and melena in the context of ongoing drinking binge and has had multiple EGDs, always with finding only of Snehal-Crews tear. She does not have any esophageal or gastric varices. She was admitted here just a month and a half ago in mid January, complaining of bright red blood per rectum at that time. She was seen by Dr. Lin. He performed a colonoscopy on 01/26/2019. This was a normal examination except for rectal varicosities and large hemorrhoids as well as some congested mucosa in the rectum consistent with portal hypertensive colopathy. The patient's baseline hemoglobin is about 7 or 8. She has chronic thrombocytopenia despite admonished medications from all physicians over the course of all these years, she continues to drink alcohol quite heavily, at least 12 beers every day including in the mornings. She says over the past couple of weeks, she has had continued rectal bleeding. This is usually with bowel movements, but on a couple of occasions, she had spontaneous rectal bleeding. She has some chronic abdominal discomfort and nausea and then started feeling dizzy and weak and that prompted this presentation. Her hemoglobin is 9.0, which is actually above her baseline values on recent admissions. She has had no bowel movement so far today. REVIEW OF SYSTEMS: Full review of systems including constitutional; head, eyes, ears, nose, throat; GI; ; cardiovascular; respiratory; musculoskeletal; and neurologic systems are negative except as noted in the HPI. PAST MEDICAL HISTORY: Alcoholic hepatitis, alcoholic cirrhosis, alcohol withdrawal, polysubstance abuse, migraines, fibromyalgia, chronic back pain, hypertension, repeated admissions with Snehal-Crews tear, breast augmentation, tubal ligation, endometrial ablation, ankle surgery, internal and external hemorrhoids with rectal varices, and colonoscopy in January 2019. SOCIAL HISTORY: She continues to drink at least 12 beers on a daily basis. FAMILY HISTORY: Negative for cirrhosis or GI malignancy. ALLERGIES: IODINE. OUTPATIENT MEDICATIONS: 1. Tums. 2. Lactulose 20 g daily. 3. Magnesium oxide 500 mg daily. 4. Melatonin. 5. Tramadol p.r.n. 6. Tegretol. 7. Vitamin B12. 8. Folic acid. 9. Gabapentin. 10. Protonix 40 mg daily. 11. Multivitamin daily. 12. Inderal 10 mg b.i.d. 13. Thiamine 100 mg daily. PHYSICAL EXAMINATION: VITAL SIGNS: Temperature 98.0, pulse 78, blood pressure 113/77, and 95% oxygen saturation on room air. GENERAL: A 53-year-old woman, lying in bed comfortably, in no distress. MENTAL: She is alert and oriented to person, place, and time. She can give details of recent history. She does slur her speech a bit. SKIN: No jaundice. No rashes were palpable. EYES: No scleral icterus. Extraocular eye movements intact. ENT: Mucous membranes moist. No oral lesions. LYMPH: No submandibular or supraclavicular lymphadenopathy. THYROID: Nontender to palpation. HEART: Regular rate and rhythm. LUNGS: Clear to auscultation bilaterally. ABDOMEN: Nondistended. Bowel sounds present. Soft and nontender to palpation throughout. RECTAL: The patient has external hemorrhoids. On digital rectal exam, I can palpate internal hemorrhoids in the rectal vault. No fissure identified. No mass lesion palpated. EXTREMITIES: No peripheral edema. VESSELS: Radial pulses 2+ bilaterally. NEURO: Cranial nerves II through XII intact bilaterally. LABORATORY STUDIES: Hemoglobin is 9.0, which is above her baseline. WBC 4.2, platelets remain low currently at 41. Her INR is 1.5. Sodium 138, potassium 3.7, BUN less than 4, creatinine 0.56, total bilirubin is 2.3, alkaline phosphatase 160, AST up to 193, ALT 37, all consistent with alcoholic liver disease. Albumin is 3.4. Plasma alcohol level elevated to 318. ASSESSMENT AND PLAN: 1. Rectal bleeding. 2. Internal and external hemorrhoids. 3. Rectal varices secondary to portal hypertension from her alcoholic liver disease. 4. Chronic anemia, stable. 5. Thrombocytopenia. 6. Coagulopathy, mild, secondary to liver disease. 7. Ongoing alcohol abuse. The patient's hemoglobin is actually above her baseline, despite the continued intermittent bleeding over the past several weeks. She underwent very recent colonoscopy with Dr. Lin less than 2 months ago with findings of significant hemorrhoids and rectal varices as well as some rectal portal hypertensive colopathy. She indeed has hemorrhoids on rectal examination. This is obviously where the bleeding has been coming from. There is no need for any endoscopic investigation at this time. The patient might benefit from being on a stool softener. But really, her primary issue continues to be the ongoing alcohol abuse. If she were able to stop drinking alcohol, it is unclear how much her liver function might recover and she might have improvement in portal hypertension, which would also help alleviate this problem. It looks like propranolol is on her medication list and this should be continued due to the rectal varices, though note she does not have any esophageal or gastric varices. She would not be a great candidate for surgical intervention on these hemorrhoids, given the presence of rectal varices and portal hypertension. GI will sign off at this time, but please call back with questions or concerns. Job ID: [id number]
[2019-03-09] MEDS: HYDROcodone/Acetaminophen 5/325 mg Tablet PO PRN ×2 (17:20→21:28)
[2019-03-09] MEDS ORDERED: Senokot S 8.6-50 MG TAB PO PRN (21:00)
[2019-03-10] MEDS: HYDROcodone/Acetaminophen 5/325 mg Tablet PO PRN ×5 (01:20→20:40)
[2019-03-10] MEDS: Zolpidem Tartrate 5 MG TAB PO PRN ×2 (01:20→21:25)
[2019-03-10] MEDS: Lorazepam 1 MG TAB PO PRN ×5 (04:26→23:54)
[2019-03-10 07:48] LABS: ALT (SGPT) 35 U/L (8-55); AST (SGOT) 164 U/L (5-34); Albumin 3.3 g/dL (3.5-5.0); Alkaline Phosphatase 157 U/L (40-150); Anion Gap 10 mmol/L (10-20); BUN (Urea Nitrogen) Less than 4 mg/dL (9.8-20.1); Bilirubin, Total 2.6 mg/dL (0.2-1.2); Calc. Creatinine Clearance 144 mL/min (70-130); Calcium 8.7 mg/dL (7.8-10.44); Carbon Dioxide 25 mmol/L (22-29); Chloride 102 mmol/L (98-107); Estimated GFR-MDRD Greater than 90; Globulin 3.9 g/dL (2.4-3.5); Glucose 113 mg/dL (70-105); Magnesium 1.2 mg/dL (1.6-2.6); Phosphorus 3.1 mg/dL (2.3-4.7); Potassium 3.8 mmol/L (3.5-5.1); Protein, Total 7.2 g/dL (6.0-8.3); Sodium 133 mmol/L (136-145)
[2019-03-10] MEDS: Pantoprazole 40 MG VIAL IVP SCH (07:55)
[2019-03-10 07:56] LABS: Hemoglobin 8.9 g/dL (12.0-16.0); Mean Corpuscular HGB CONC 31.1 g/dL (32.0-36.0); Mean Corpuscular Hemoglobin 25.1 pg (27.0-31.0); Mean Corpuscular Volume 80.6 fL (78.0-98.0); RBC Distribution Width 20.7 % (11.5-14.5); Red Blood Cell (RBC) Count 3.53 mill/uL (4.20-5.40); White Blood Cell (WBC) Count 3.2 thou/uL (4.8-10.8)
[2019-03-10] MEDS ORDERED: Magnesium Sulfate 4 GM in Sodium Chloride 0.9% 250 ML 250 ML IVPB SCH (08:00)
[2019-03-10 09:56] LABS: #Eosinphils 0.1 thou/uL (0.0-0.7); #Lymphocytes 1.1 thou/uL (1.20-3.40); #Monocytes 0.5 thou/uL (0.11-0.59); #Neutrophils 1.5 thou/uL (1.40-6.50); %Basophils 1.2 % (0.0-1.0); %Lymphocytes 33.7 % (21.0-51.0); %Monocytes 14.6 % (0.0-10.0); %Neutrophils 48.4 % (42.0-75.0); Anisocytosis SLIGHT = 6-15 cells (100X) (0-5/hpf); Hypochromia MODERATE=16-30 cells (100X) (0-5/hpf); MDiff Complete? YES; Mean Platelet Volume 6.4 fL (7.4-10.4); Microcytosis SLIGHT = 6-15 cells (100X) (0-5/hpf); Platelet Count 35 thou/uL (130-400); Platelet Morphology Comment Appears Decreased; Polychromasia SLIGHT = 2-3 cells (100X) (0-2/hpf)
--- NOTE | 2019-03-10 11:14 | PDOC.PN ---
- Subjective Encounter Start Date: 03/10/19 Encounter Start Time: 09:40 -: old records requested/rev pt has poor apattie today, feels nausea and weakness, no further rectal bleed - Objective Resuscitation Status - Order Detail: 03/09/19 10:15 Resuscitation Status Routine Resuscitation Status: FULL: Full Resuscitation MAR Reviewed: Yes Vital Signs & Weight: Vital Signs (12 hours) Temp Pulse Resp BP BP Pulse Ox 03/10/19 08:00 103 H 137/81 93 L 03/10/19 04:13 98.5 F 105 H 20 137/81 137/81 92 L 03/09/19 23:42 98.4 F 106 H 20 138/80 138/80 93 L Weight Weight 170 lb 8 oz I&O: 03/09/19 03/10/19 03/11/19 06:59 06:59 06:59 Intake Total 3050 Balance 3050 Result Diagrams: 03/10/19 07:20 03/10/19 07:20 Phys Exam - Physical Examination Constitutional: NAD HEENT: PERRLA, moist MMs, sclera anicteric Neck: no JVD, supple Respiratory: no wheezing, no rales, no rhonchi Cardiovascular: RRR, no significant murmur, no rub Gastrointestinal: soft, non-tender, no distention, positive bowel sounds Musculoskeletal: no edema, pulses present Neurological: non-focal, normal sensation, moves all 4 limbs Lymphatic: no nodes Psychiatric: normal affect, A&O x 3 Skin: no rash, normal turgor Dx/Plan (1) Rectal bleed Code(s): K62.5 - HEMORRHAGE OF ANUS AND RECTUM Status: Acute Comment: due to haemorroidal bleed (2) Pancytopenia Code(s): D61.818 - OTHER PANCYTOPENIA Status: Chronic Comment: due to alcoholic cirrhosis (3) Hypomagnesemia Code(s): E83.42 - HYPOMAGNESEMIA Status: Acute (4) Alcoholic cirrhosis of liver Code(s): K70.30 - ALCOHOLIC CIRRHOSIS OF LIVER WITHOUT ASCITES Status: Chronic (5) Anxiety and depression Code(s): F41.9 - ANXIETY DISORDER, UNSPECIFIED; F32.9 - MAJOR DEPRESSIVE DISORDER, SINGLE EPISODE, UNSPECIFIED Status: Chronic (6) Chronic alcoholism Code(s): F10.20 - ALCOHOL DEPENDENCE, UNCOMPLICATED Status: Chronic (7) Coagulopathy Status: Chronic (8) Fibromyalgia Status: Chronic (9) Thrombocytopenia Code(s): D69.6 - THROMBOCYTOPENIA, UNSPECIFIED Status: Chronic Comment: - Plan cont current plan of care * continue banana bag * replace magnesium * GI recommendation appreciated * no need of colonoscopy * will advance diet and observe today and treat her symptoms * medication reviewed as below * symptomatic treatment. * increase lactulose for constipation Review of Systems - Review of Systems ENT: negative: Ear Pain, Ear Discharge, Nose Pain, Nose Discharge, Nose Congestion, Mouth Pain, Mouth Swelling, Throat Pain, Throat Swelling, Other Respiratory: negative: Cough, Dry, Shortness of Breath, Hemoptysis, SOB with Excertion, Pleuritic Pain, Sputum, Wheezing Cardiovascular: negative: chest pain, palpitations, orthopnea, paroxysmal nocturnal dyspnea, edema, light headedness, other Gastrointestinal: Nausea, Constipation. negative: Vomiting, Abdominal Pain, Diarrhea, Melena, Hematochezia, Other Genitourinary: negative: Dysuria, Frequency, Incontinence, Hematuria, Retention , Other Musculoskeletal: negative: Neck Pain, Shoulder Pain, Arm Pain, Back Pain, Hand Pain, Leg Pain, Foot Pain, Other Skin: negative: Rash, Lesions, Giovanni, Bruising, Other - Medications/Allergies Allergies/Adverse Reactions: Allergies Allergy/AdvReac Type Severity Reaction Status Date / Time No Known Drug Allergies Allergy Verified 01/25/19 02:24 Medications: Current Medications Acetaminophen (Tylenol) 650 mg PO Q4H PRN PRN Reason: Headache/Fever/Mild Pain (1-3) Hydrocodone Bitart/Acetaminophen ([place] 5/325) 1 tab PO Q4H PRN PRN Reason: Moderate Pain (4-6) Last Admin: 03/10/19 07:45 Dose: 1 tab Bisacodyl (Dulcolax) 10 mg NE DAILYPRN PRN PRN Reason: Constipation Bisacodyl (Dulcolax) 10 mg PO DAILYPRN PRN PRN Reason: Constipation Calcium Carbonate (Tums) 1,000 mg PO Q4H PRN PRN Reason: Heartburn or Indigestion Multivitamins 10 ml/ Folic Acid 1 mg/ Thiamine HCl 100 mg / Dextrose/Sodium Chloride 1,011.2 mls @ 125 mls/hr IV Q24HR [facility] Last Admin: 03/09/19 12:23 Dose: 1,011.2 mls Magnesium Sulfate 4 gm/ Sodium (Chloride) 258 mls @ 86 mls/hr IVPB NOW [facility] Stop: 03/10/19 13:00 Last Admin: 03/10/19 08:53 Dose: 258 mls Lactulose (Lactulose) 20 gm PO DAILY [facility] Last Admin: 03/10/19 07:54 Dose: 20 gm Lorazepam (Ativan) 1 mg SLOW IVP Q4H PRN PRN Reason: Anxiety/Agitation Lorazepam (Ativan) 1 mg PO Q4H PRN PRN Reason: Anxiety/Agitation Last Admin: 03/10/19 08:52 Dose: 1 mg Ondansetron HCl (Zofran Odt) 4 mg PO Q6H PRN PRN Reason: Nausea/Vomiting Ondansetron HCl (Zofran) 4 mg IVP Q6H PRN PRN Reason: Nausea/Vomiting Pantoprazole Sodium (Protonix) 40 mg IVP DAILY [facility] Last Admin: 03/10/19 07:55 Dose: 40 mg Senna/Docusate Sodium (Senokot S) 2 tab PO BID PRN PRN Reason: Constipation Sodium Chloride (Flush - Normal Saline) 10 ml IVF Q12HR [facility] Last Admin: 03/10/19 07:53 Dose: 10 ml Sodium Chloride (Flush - Normal Saline) 10 ml IVF PRN PRN PRN Reason: Saline Flush Last Admin: 03/09/19 20:39 Dose: 10 ml Zolpidem Tartrate (Ambien) 5 mg PO HSPRN PRN PRN Reason: Insomnia Last Admin: 03/10/19 01:20 Dose: 5 mg
[2019-03-10] MEDS: Multivitamins, Adult 10 ML, Folic Acid 1 MG, Thiamine HCl 100 MG in Dextrose 5 %-0.45 %... IV SCH (11:49)
[2019-03-10 12:37] LABS: Bilirubin Negative (Negative); Blood, Urine Negative (Negative); Clarity CLEAR (Clear); Glucose, Urine (Dipstick) Negative (Negative); Leukocyte Negative (Negative); Nitrite Negative (Negative); Protein, Urine (Dipstick) Negative (Neg-Trace); Specific Gravity, Urine 1.009 (1.002-1.036); pH, Urine 7.5 (5.0-9.0)
[2019-03-10 12:41] LABS: Bacteria/HPF None Seen HPF (None Seen); Hyaline Casts/LPF 0-3 HYALINE CAST LPF (0-3 Hyaline); Pathc Cast-AUWi Flag 0.27 (0-2.49); RBC/HPF 0-3 HPF (0-3); Squamous Epithelial None Seen HPF (0-3); WBC/HPF 0-3 HPF (0-3)
[2019-03-10] MEDS: Ondansetron PF 4 MG/2 ML Vial IVP PRN (14:48)
[2019-03-10] MEDS ORDERED: Multivitamins, Adult 10 ML, Folic Acid 1 MG, Thiamine HCl 100 MG in Dextrose 5 %-0.45 %... IV SCH (17:00)
[2019-03-10] MEDS: Acetaminophen 325 MG TAB PO PRN (19:22)
[2019-03-10] MEDS: Diazepam 5 MG TAB PO SCH (20:02)
[2019-03-10] MEDS: Sodium Chloride 0.9% 1,000 ML IV SCH ×2 (20:51→22:11)
[2019-03-11] MEDS: HYDROcodone/Acetaminophen 5/325 mg Tablet PO PRN ×3 (01:25→17:40)
[2019-03-11] MEDS: Acetaminophen 325 MG TAB PO PRN (02:41)
[2019-03-11] MEDS: Ondansetron PF 4 MG/2 ML Vial IVP PRN (02:53)
[2019-03-11] MEDS: Lorazepam 1 MG TAB PO PRN ×2 (04:08→13:07)
[2019-03-11] MEDS: Diazepam 5 MG TAB PO SCH ×2 (09:05→20:41)
[2019-03-11] MEDS: Pantoprazole 40 MG VIAL IVP SCH (09:05)
--- NOTE | 2019-03-11 11:09 | PDOC.PN ---
- Subjective Encounter Start Date: 03/11/19 Encounter Start Time: 09:45 Patient seen and examined. pt is anxious, No overnight events - Objective Resuscitation Status - Order Detail: 03/09/19 10:15 Resuscitation Status Routine Resuscitation Status: FULL: Full Resuscitation MAR Reviewed: Yes Vital Signs & Weight: Vital Signs (12 hours) Temp Pulse Resp BP BP Pulse Ox 03/11/19 07:31 98.5 F 92 18 154/91 H 95 03/11/19 04:07 98.2 F 92 18 131/78 131/78 98 03/10/19 23:54 98.4 F 106 H 18 154/86 H 154/86 H 94 L Weight Weight 170 lb 8 oz I&O: 03/10/19 03/11/19 03/12/19 06:59 06:59 06:59 Intake Total 3050 3389 Output Total 3800 Balance 3050 -411 Result Diagrams: 03/10/19 07:20 03/10/19 07:20 Phys Exam - Physical Examination Constitutional: NAD HEENT: PERRLA, moist MMs, sclera anicteric Neck: no JVD, supple Respiratory: no wheezing, no rales, no rhonchi Cardiovascular: RRR, no significant murmur, no rub Gastrointestinal: soft, non-tender, no distention, positive bowel sounds Musculoskeletal: no edema, pulses present Neurological: non-focal, normal sensation Lymphatic: no nodes Psychiatric: normal affect Skin: no rash, normal turgor Dx/Plan (1) Rectal bleed Code(s): K62.5 - HEMORRHAGE OF ANUS AND RECTUM Status: Acute Comment: due to haemorroidal bleed (2) Pancytopenia Code(s): D61.818 - OTHER PANCYTOPENIA Status: Chronic Comment: due to alcoholic cirrhosis (3) Hypomagnesemia Code(s): E83.42 - HYPOMAGNESEMIA Status: Acute (4) Alcoholic cirrhosis of liver Code(s): K70.30 - ALCOHOLIC CIRRHOSIS OF LIVER WITHOUT ASCITES Status: Chronic (5) Anxiety and depression Code(s): F41.9 - ANXIETY DISORDER, UNSPECIFIED; F32.9 - MAJOR DEPRESSIVE DISORDER, SINGLE EPISODE, UNSPECIFIED Status: Chronic (6) Chronic alcoholism Code(s): F10.20 - ALCOHOL DEPENDENCE, UNCOMPLICATED Status: Chronic (7) Coagulopathy Status: Chronic (8) Fibromyalgia Status: Chronic (9) Thrombocytopenia Code(s): D69.6 - THROMBOCYTOPENIA, UNSPECIFIED Status: Chronic Comment: - Plan cont current plan of care * repeat labs tomorrow * Dc banana bag * continue NS * add folic acid, thiamin, B12 and theragram * medication reviewed as below * symptomatic treatment * treat withdrawl. Review of Systems - Review of Systems ENT: negative: Ear Pain, Ear Discharge, Nose Pain, Nose Discharge, Nose Congestion, Mouth Pain, Mouth Swelling, Throat Pain, Throat Swelling, Other Respiratory: negative: Cough, Dry, Shortness of Breath, Hemoptysis, SOB with Excertion, Pleuritic Pain, Sputum, Wheezing Cardiovascular: negative: chest pain, palpitations, orthopnea, paroxysmal nocturnal dyspnea, edema, light headedness, other Gastrointestinal: Nausea. negative: Vomiting, Abdominal Pain, Diarrhea, Constipation, Melena, Hematochezia, Other Genitourinary: negative: Dysuria, Frequency, Incontinence, Hematuria, Retention , Other Musculoskeletal: negative: Neck Pain, Shoulder Pain, Arm Pain, Back Pain, Hand Pain, Leg Pain, Foot Pain, Other - Medications/Allergies Allergies/Adverse Reactions: Allergies Allergy/AdvReac Type Severity Reaction Status Date / Time No Known Drug Allergies Allergy Verified 01/25/19 02:24 Medications: Current Medications Acetaminophen (Tylenol) 650 mg PO Q4H PRN PRN Reason: Headache/Fever/Mild Pain (1-3) Last Admin: 03/11/19 02:41 Dose: 650 mg Hydrocodone Bitart/Acetaminophen ([place] 5/325) 1 tab PO Q4H PRN PRN Reason: Moderate Pain (4-6) Last Admin: 03/11/19 05:26 Dose: 1 tab Bisacodyl (Dulcolax) 10 mg [place] DAILYPRN PRN PRN Reason: Constipation Bisacodyl (Dulcolax) 10 mg PO DAILYPRN PRN PRN Reason: Constipation Calcium Carbonate (Tums) 1,000 mg PO Q4H PRN PRN Reason: Heartburn or Indigestion Diazepam (Valium) 5 mg PO BID [facility] Last Admin: 03/11/19 09:05 Dose: 5 mg Multivitamins 10 ml/ Folic Acid 1 mg/ Thiamine HCl 100 mg / Dextrose/Sodium Chloride 1,011.2 mls @ 42 mls/hr IV INF [facility] Last Admin: 03/10/19 20:51 Dose: 1,011.2 mls Sodium Chloride (Normal Saline 0.9%) 1,000 mls @ 75 mls/hr IV .[id number] [facility] Last Admin: 03/10/19 22:11 Dose: 1,000 mls Lactulose (Lactulose) 20 gm PO TID [facility] Last Admin: 03/11/19 09:05 Dose: 20 gm Lorazepam (Ativan) 1 mg SLOW IVP Q4H PRN PRN Reason: Anxiety/Agitation Lorazepam (Ativan) 1 mg PO Q4H PRN PRN Reason: Anxiety/Agitation Last Admin: 03/11/19 04:08 Dose: 1 mg Ondansetron HCl (Zofran Odt) 4 mg PO Q6H PRN PRN Reason: Nausea/Vomiting Ondansetron HCl (Zofran) 4 mg IVP Q6H PRN PRN Reason: Nausea/Vomiting Last Admin: 03/11/19 02:53 Dose: 4 mg Pantoprazole Sodium (Protonix) 40 mg IVP DAILY [facility] Last Admin: 03/11/19 09:05 Dose: 40 mg Senna/Docusate Sodium (Senokot S) 2 tab PO BID PRN PRN Reason: Constipation Sodium Chloride (Flush - Normal Saline) 10 ml IVF Q12HR [facility] Last Admin: 03/11/19 09:05 Dose: Not Given Sodium Chloride (Flush - Normal Saline) 10 ml IVF PRN PRN PRN Reason: Saline Flush Last Admin: 03/09/19 20:39 Dose: 10 ml Zolpidem Tartrate (Ambien) 5 mg PO HSPRN PRN PRN Reason: Insomnia Last Admin: 03/10/19 21:25 Dose: 5 mg
[2019-03-11] MEDS: Sodium Chloride 0.9% 1,000 ML IV SCH ×2 (11:40→20:41)
[2019-03-11] MEDS: Magnesium Oxide 400 MG TAB PO SCH (20:41)
[2019-03-12] MEDS: Lorazepam 1 MG TAB PO PRN ×2 (06:14→19:45)
[2019-03-12] MEDS: Acetaminophen 325 MG TAB PO PRN ×2 (06:14→19:45)
[2019-03-12 07:31] LABS: Hemoglobin 8.6 g/dL (12.0-16.0); Mean Corpuscular HGB CONC 30.6 g/dL (32.0-36.0); Mean Corpuscular Hemoglobin 24.7 pg (27.0-31.0); Mean Corpuscular Volume 80.8 fL (78.0-98.0); Red Blood Cell (RBC) Count 3.48 mill/uL (4.20-5.40); White Blood Cell (WBC) Count 3.3 thou/uL (4.8-10.8)
[2019-03-12 07:47] LABS: ALT (SGPT) 25 U/L (8-55); AST (SGOT) 100 U/L (5-34); Albumin 3.2 g/dL (3.5-5.0); Alkaline Phosphatase 130 U/L (40-150); Anion Gap 11 mmol/L (10-20); BUN (Urea Nitrogen) Less than 4 mg/dL (9.8-20.1); Bilirubin, Total 2.8 mg/dL (0.2-1.2); Calc. Creatinine Clearance 147 mL/min (70-130); Calcium 8.8 mg/dL (7.8-10.44); Carbon Dioxide 23 mmol/L (22-29); Chloride 102 mmol/L (98-107); Estimated GFR-MDRD Greater than 90; Globulin 3.9 g/dL (2.4-3.5); Glucose 97 mg/dL (70-105); Magnesium 1.1 mg/dL (1.6-2.6); Potassium 3.1 mmol/L (3.5-5.1); Protein, Total 7.1 g/dL (6.0-8.3); Sodium 133 mmol/L (136-145)
[2019-03-12] MEDS: Cyanocobalamin (Vitamin B-12) 1,000 MCG TAB PO SCH (08:29)
[2019-03-12] MEDS: Diazepam 5 MG TAB PO SCH ×2 (08:29→19:45)
[2019-03-12] MEDS: Folic Acid 1 MG TAB PO SCH (08:29)
[2019-03-12] MEDS: Magnesium Oxide 400 MG TAB PO SCH ×2 (08:29→19:45)
[2019-03-12] MEDS: Thiamine 100 MG TAB PO SCH (08:29)
[2019-03-12] MEDS: Multivitamin W/ Minerals 1 TAB PO SCH (08:29)
[2019-03-12] MEDS: Pantoprazole 40 MG VIAL IVP SCH ×2 (08:30→11:55)
[2019-03-12 09:21] LABS: Eosinophils 4 % (0-10); Hypochromia MODERATE=16-30 cells (100X) (0-5/hpf); Lymphocytes 35 % (21-51); MDiff Complete? YES; Monocytes 11 % (0-10); Neutrophil 48 % (42-75); Platelet Count 32 thou/uL (130-400); Platelet Morphology Comment Appears Decreased; Polychromasia MODERATE = 3-4 cells (100X) (0-2/hpf); Reactive Lymphocytes 1 % (0-10); Schistocytes SLIGHT = 2-5 cells (100X) (0-1/hpf); Target Cells MODERATE= 6-15 cells (100X) (0-1/hpf)
--- NOTE | 2019-03-12 10:04 | RAD ---
Exam:4 views right elbow HISTORY: 18. Fall. COMPARISON: None FINDINGS: No joint effusion. Joint spaces are preserved. No fractures or malalignment. IMPRESSION: Unremarkable 4 views right elbow.
[2019-03-12] MEDS ORDERED: Potassium Chloride 20 MEQ TAB PO SCH (11:00)
[2019-03-12] MEDS ORDERED: Potassium Phosphate 30 MMOL in Sodium Chloride 0.9% 500 ML IVPB SCH (11:00)
[2019-03-12] MEDS ORDERED: Magnesium Sulfate 4 GM in Sodium Chloride 0.9% 250 ML 250 ML IVPB SCH (11:00)
--- NOTE | 2019-03-12 11:35 | PDOC.PN ---
- Subjective Encounter Start Date: 03/12/19 Encounter Start Time: 09:50 this morning she fell and she bruised at elbow, no fracture, overall fine - Objective Resuscitation Status - Order Detail: 03/09/19 10:15 Resuscitation Status Routine Resuscitation Status: FULL: Full Resuscitation MAR Reviewed: Yes Vital Signs & Weight: Vital Signs (12 hours) Temp Pulse Resp BP BP Pulse Ox 03/12/19 07:36 98.4 F 103 H 20 163/91 H 98 03/12/19 05:00 99.2 F 103 H 18 148/87 H 98 03/12/19 04:00 148/87 H 03/12/19 00:00 98.6 F 85 16 129/77 129/77 99 Weight Admit Weight 170 lb 8 oz Weight 170 lb 8 oz I&O: 03/11/19 03/12/19 03/13/19 06:59 06:59 06:59 Intake Total 3389 2414 Output Total 3800 2000 Balance -411 414 Result Diagrams: 03/12/19 07:08 03/12/19 07:08 Radiology Reviewed by me: Yes (elbow xray noted) Phys Exam - Physical Examination Constitutional: NAD HEENT: PERRLA, moist MMs, sclera anicteric Neck: no JVD, supple Respiratory: no wheezing, no rales, no rhonchi Cardiovascular: RRR, no significant murmur, no rub Gastrointestinal: soft, non-tender, no distention, positive bowel sounds Musculoskeletal: no edema, pulses present Neurological: non-focal, normal sensation, moves all 4 limbs Lymphatic: no nodes Psychiatric: normal affect, A&O x 3 Skin: no rash, normal turgor Dx/Plan (1) Rectal bleed Code(s): K62.5 - HEMORRHAGE OF ANUS AND RECTUM Status: Acute Comment: due to haemorroidal bleed (2) Pancytopenia Code(s): D61.818 - OTHER PANCYTOPENIA Status: Chronic Comment: due to alcoholic cirrhosis (3) Hypomagnesemia Code(s): E83.42 - HYPOMAGNESEMIA Status: Acute (4) Alcoholic cirrhosis of liver Code(s): K70.30 - ALCOHOLIC CIRRHOSIS OF LIVER WITHOUT ASCITES Status: Chronic (5) Anxiety and depression Code(s): F41.9 - ANXIETY DISORDER, UNSPECIFIED; F32.9 - MAJOR DEPRESSIVE DISORDER, SINGLE EPISODE, UNSPECIFIED Status: Chronic (6) Chronic alcoholism Code(s): F10.20 - ALCOHOL DEPENDENCE, UNCOMPLICATED Status: Chronic (7) Coagulopathy Status: Chronic (8) Fibromyalgia Status: Chronic (9) Thrombocytopenia Code(s): D69.6 - THROMBOCYTOPENIA, UNSPECIFIED Status: Chronic Comment: (10) Hypokalemia Code(s): E87.6 - HYPOKALEMIA Status: Acute - Plan cont current plan of care * replace magnesium sulfate * replace potassium phosphate and oral KCL * repeat labs later today * Medication reviewed as below * symptomatic treatment. * DC IVF * possible discharge later today if electrolytes are Ok * xray hip and xray shoulder done after fall Review of Systems - Review of Systems ENT: negative: Ear Pain, Ear Discharge, Nose Pain, Nose Discharge, Nose Congestion, Mouth Pain, Mouth Swelling, Throat Pain, Throat Swelling, Other Respiratory: negative: Cough, Dry, Shortness of Breath, Hemoptysis, SOB with Excertion, Pleuritic Pain, Sputum, Wheezing Cardiovascular: negative: chest pain, palpitations, orthopnea, paroxysmal nocturnal dyspnea, edema, light headedness, other Gastrointestinal: negative: Nausea, Vomiting, Abdominal Pain, Diarrhea, Constipation, Melena, Hematochezia, Other Genitourinary: negative: Dysuria, Frequency, Incontinence, Hematuria, Retention , Other Musculoskeletal: negative: Neck Pain, Shoulder Pain, Arm Pain, Back Pain, Hand Pain, Leg Pain, Foot Pain, Other - Medications/Allergies Allergies/Adverse Reactions: Allergies Allergy/AdvReac Type Severity Reaction Status Date / Time No Known Drug Allergies Allergy Verified 01/25/19 02:24 Medications: Current Medications Acetaminophen (Tylenol) 650 mg PO Q4H PRN PRN Reason: Headache/Fever/Mild Pain (1-3) Last Admin: 03/12/19 06:14 Dose: 650 mg Hydrocodone Bitart/Acetaminophen ([place] 5/325) 1 tab PO Q4H PRN PRN Reason: Moderate Pain (4-6) Last Admin: 03/11/19 17:40 Dose: 1 tab Bisacodyl (Dulcolax) 10 mg [place] DAILYPRN PRN PRN Reason: Constipation Bisacodyl (Dulcolax) 10 mg PO DAILYPRN PRN PRN Reason: Constipation Calcium Carbonate (Tums) 1,000 mg PO Q4H PRN PRN Reason: Heartburn or Indigestion Cyanocobalamin (Vitamin B-12) 1,000 mcg PO DAILY [facility] Last Admin: 03/12/19 08:29 Dose: 1,000 mcg Diazepam (Valium) 5 mg PO BID [facility] Last Admin: 03/12/19 08:29 Dose: 5 mg Folic Acid (Folvite) 1 mg PO DAILY [facility] Last Admin: 03/12/19 08:29 Dose: 1 mg Magnesium Sulfate 4 gm/ Sodium (Chloride) 258 mls @ 86 mls/hr IVPB NOW [facility] Stop: 03/12/19 15:00 Potassium Phosphate 30 mmol/ (Sodium Chloride) 510 mls @ 83.3 mls/hr IVPB [facility] Stop: 03/12/19 18:00 Iron/Minerals/Multivitamins (Theragran M) 1 tab PO DAILY [facility] Last Admin: 03/12/19 08:29 Dose: 1 tab Lactulose (Lactulose) 20 gm PO TID [facility] Last Admin: 03/12/19 08:29 Dose: 20 gm Lorazepam (Ativan) 1 mg SLOW IVP Q4H PRN PRN Reason: Anxiety/Agitation Lorazepam (Ativan) 1 mg PO Q4H PRN PRN Reason: Anxiety/Agitation Last Admin: 03/12/19 06:14 Dose: 1 mg Magnesium Oxide (Magnesium Oxide) 400 mg PO BID [facility] Last Admin: 03/12/19 08:29 Dose: 400 mg Ondansetron HCl (Zofran Odt) 4 mg PO Q6H PRN PRN Reason: Nausea/Vomiting Ondansetron HCl (Zofran) 4 mg IVP Q6H PRN PRN Reason: Nausea/Vomiting Last Admin: 03/11/19 02:53 Dose: 4 mg Pantoprazole Sodium (Protonix) 40 mg IVP DAILY [facility] Last Admin: 03/12/19 08:30 Dose: Not Given Potassium Chloride (K-Dur) 40 meq PO [facility] Stop: 03/12/19 13:00 Senna/Docusate Sodium (Senokot S) 2 tab PO BID PRN PRN Reason: Constipation Sodium Chloride (Flush - Normal Saline) 10 ml IVF Q12HR [facility] Last Admin: 03/12/19 08:31 Dose: Not Given Sodium Chloride (Flush - Normal Saline) 10 ml IVF PRN PRN PRN Reason: Saline Flush Last Admin: 03/09/19 20:39 Dose: 10 ml Thiamine HCl (Thiamine) 100 mg PO DAILY [facility] Last Admin: 03/12/19 08:29 Dose: 100 mg Zolpidem Tartrate (Ambien) 5 mg PO HSPRN PRN PRN Reason: Insomnia Last Admin: 03/10/19 21:25 Dose: 5 mg
--- NOTE | 2019-03-12 11:56 | RAD ---
RADIOGRAPH RIGHT HIP 2 VIEWS: Date: 03/12/19 HISTORY: 53-year-old female with traumatic right hip pain due to fall. FINDINGS: No displaced fracture is identified. However, because of the osteopenia and body habitus, a slightly impacted subcapital fracture could be missed. No dislocation. No high grade DJD. IMPRESSION: 1. No acute fracture identified. 2. If symptoms do not improve in the next several days, then the most sensitive modality to evaluate for occult hip fracture would be a noncontrast MRI of the pelvis and hip. POS: Lali
[2019-03-12] MEDS: HYDROcodone/Acetaminophen 5/325 mg Tablet PO PRN ×2 (13:51→18:15)
--- NOTE | 2019-03-12 14:05 | DIS ---
DATE OF ADMISSION: 03/09/2019 DATE OF DISCHARGE: 03/12/2019 PRIMARY CARE PHYSICIAN: Garry Castañeda. DISCHARGE DISPOSITION: Home. PRIMARY DISCHARGE DIAGNOSES: 1. Rectal bleed, likely due to hemorrhoidal bleed. 2. Hypokalemia, hypomagnesemia. 3. Alcoholism and alcohol intoxication with withdrawal. SECONDARY DISCHARGE DIAGNOSES: Alcoholic cirrhosis of liver, anxiety and depression, chronic alcoholism, coagulopathy, fibromyalgia, thrombocytopenia, and abnormal electrolytes. PRIMARY PROCEDURE/OPERATION: None. RADIOLOGICAL INVESTIGATION: Elbow x-ray negative. Hip x-ray negative for any fracture. SIGNIFICANT LABORATORY DATA: WBC 3.3, hemoglobin 8.6, platelet 32. INR 1.5, creatinine 0.54, sodium 133. AST 100, ALT 25, albumin 3.2. Urinalysis normal. Alcohol level on admission 318. DISCHARGE MEDICATIONS: 1. Calcium carbonate 500 mg p.o. daily. 2. Magnesium oxide 500 mg p.o. daily. 3. Melatonin 10 mg p.o. at bedtime p.r.n. 4. Tramadol 50 mg q.6 hourly p.r.n. 5. Tegretol 200 mg p.o. b.i.d. 6. Vitamin B12 of 1000 mcg p.o. daily. 7. Folic acid 1 mg daily. 8. Gabapentin 300 mg p.o. at bedtime. 9. Lactulose 20 g p.o. b.i.d. 10. Multivitamin one tablet p.o. daily. 11. Protonix 40 mg p.o. b.i.d. 12. Inderal 10 mg b.i.d. 13. Thiamine 100 mg p.o. daily. CONTRAINDICATION: None. CODE STATUS: Full code. INPATIENT DAIRY FARM MANAGER: Dr. Curtis was consulted while in hospital. TEST RESULT PENDING ON DISCHARGE: None. ALLERGIES: NO KNOWN DRUG ALLERGIES. DISCHARGE PLAN: Posthospital, the patient will follow up with primary care physician in 1 week. HOSPITAL COURSE: A 53-year-old female, who was admitted by me. Please see my HPI for further details. This patient has underlying history of chronic alcoholism. She was drinking alcohol and she drank alcohol even on the day of admission. For last couple of weeks before admission, she started noticing rectal bleed, which was intermittent in nature. The patient did not have any abdominal pain. Her description was concerning for lower GI bleed, but her hemoglobin remained stable. We consulted golf course keeper and they assessed this patient and based on their opinion, the patient has hemorrhoidal bleed rather than diverticular bleed. While in the hospital, we did not see any further bleeding. Concrete Mixer Operator Helper did not recommend any further investigation during this admission. The patient was hydrated with IV fluid as well as banana bag was given. Her abnormal electrolytes were replaced while in hospital. This patient had mechanical fall during the admission and that is why elbow x-ray and hip x-ray were done, which were negative for any fracture. The patient did not have any pain significantly or any swelling. She was able to function with this joint. We are not suspecting any fracture at this point. The patient is advised to follow up with primary care physician in 1 week. I have seen and examined the patient at bedside today. I am replacing electrolytes today, and I will repeat electrolytes later on today. If that are normal and the patient does not have any pain, then we will consider discharging her home. While in hospital, we also addressed her withdrawal symptoms. Overall, the patient is medically stable for discharge today. Job ID: [id number]
[2019-03-12] MEDS ORDERED: Artificial Tears 18 DROP/0.9 ML EA EYE PRN (16:40)
[2019-03-12 18:04] LABS: Magnesium 1.9 mg/dL (1.6-2.6); Phosphorus 3.6 mg/dL (2.3-4.7); Potassium 3.7 mmol/L (3.5-5.1)
[2019-03-12] MEDS: Zolpidem Tartrate 5 MG TAB PO PRN (19:45)
[2019-03-13] MEDS: HYDROcodone/Acetaminophen 5/325 mg Tablet PO PRN ×2 (01:55→07:53)
[2019-03-13] MEDS: Magnesium Oxide 400 MG TAB PO SCH (07:49)
[2019-03-13] MEDS: Multivitamin W/ Minerals 1 TAB PO SCH (07:49)
[2019-03-13] MEDS: Folic Acid 1 MG TAB PO SCH (07:49)
[2019-03-13] MEDS: Cyanocobalamin (Vitamin B-12) 1,000 MCG TAB PO SCH (07:49)
[2019-03-13] MEDS: Thiamine 100 MG TAB PO SCH (07:49)
[2019-03-13] MEDS: Diazepam 5 MG TAB PO SCH (07:50)
[2019-03-13 12:24] VITALS: TEMP 98.2
--- NOTE | 2019-03-13 13:42 | PDOC.PN ---
- Subjective Encounter Start Date: 03/13/19 Encounter Start Time: 13:43 -: old records requested/rev Patient seen and examined. No new complaints. No overnight events - Objective Resuscitation Status - Order Detail: 03/09/19 10:15 Resuscitation Status Routine Resuscitation Status: FULL: Full Resuscitation MAR Reviewed: Yes Vital Signs & Weight: Vital Signs (12 hours) Temp Pulse Resp BP BP BP Pulse Ox 03/13/19 12:31 156/82 H 03/13/19 12:22 98.2 F 97 18 156/82 H 98 03/13/19 07:50 98.1 F 90 16 135/87 135/87 97 03/13/19 04:00 98.3 F 88 20 138/84 138/84 94 L Weight Admit Weight 170 lb 8 oz Weight 170 lb 8 oz I&O: 03/12/19 03/13/19 03/14/19 06:59 06:59 06:59 Intake Total 2414 2157 Output Total 1999 Balance 414 2157 Result Diagrams: 03/12/19 07:08 03/12/19 17:31 Phys Exam - Physical Examination Constitutional: NAD HEENT: PERRLA, moist MMs, sclera anicteric Neck: no JVD, supple Respiratory: no wheezing, no rales, no rhonchi Cardiovascular: RRR, no significant murmur, no rub Gastrointestinal: soft, non-tender, no distention, positive bowel sounds Musculoskeletal: no edema, pulses present Neurological: non-focal, normal sensation, moves all 4 limbs Lymphatic: no nodes Psychiatric: normal affect, A&O x 3 Skin: no rash, normal turgor Dx/Plan (1) Rectal bleed Code(s): K62.5 - HEMORRHAGE OF ANUS AND RECTUM Status: Acute Comment: due to haemorroidal bleed (2) Pancytopenia Code(s): D61.818 - OTHER PANCYTOPENIA Status: Chronic Comment: due to alcoholic cirrhosis (3) Hypomagnesemia Code(s): E83.42 - HYPOMAGNESEMIA Status: Acute (4) Alcoholic cirrhosis of liver Code(s): K70.30 - ALCOHOLIC CIRRHOSIS OF LIVER WITHOUT ASCITES Status: Chronic (5) Anxiety and depression Code(s): F41.9 - ANXIETY DISORDER, UNSPECIFIED; F32.9 - MAJOR DEPRESSIVE DISORDER, SINGLE EPISODE, UNSPECIFIED Status: Chronic (6) Chronic alcoholism Code(s): F10.20 - ALCOHOL DEPENDENCE, UNCOMPLICATED Status: Chronic (7) Coagulopathy Status: Chronic (8) Fibromyalgia Status: Chronic (9) Thrombocytopenia Code(s): D69.6 - THROMBOCYTOPENIA, UNSPECIFIED Status: Chronic Comment: (10) Hypokalemia Code(s): E87.6 - HYPOKALEMIA Status: Acute - Plan cont current plan of care, plan discussed w/ family * medication reviewed as below * symptomatic treatment * see discharge wesley. Review of Systems - Review of Systems ENT: negative: Ear Pain, Ear Discharge, Nose Pain, Nose Discharge, Nose Congestion, Mouth Pain, Mouth Swelling, Throat Pain, Throat Swelling, Other Respiratory: negative: Cough, Dry, Shortness of Breath, Hemoptysis, SOB with Excertion, Pleuritic Pain, Sputum, Wheezing Cardiovascular: negative: chest pain, palpitations, orthopnea, paroxysmal nocturnal dyspnea, edema, light headedness, other Gastrointestinal: negative: Nausea, Vomiting, Abdominal Pain, Diarrhea, Constipation, Melena, Hematochezia, Other Genitourinary: negative: Dysuria, Frequency, Incontinence, Hematuria, Retention , Other Musculoskeletal: negative: Neck Pain, Shoulder Pain, Arm Pain, Back Pain, Hand Pain, Leg Pain, Foot Pain, Other - Medications/Allergies Allergies/Adverse Reactions: Allergies Allergy/AdvReac Type Severity Reaction Status Date / Time No Known Allergies Allergy Verified 03/12/19 13:54 Medications: Current Medications Acetaminophen (Tylenol) 650 mg PO Q4H PRN PRN Reason: Headache/Fever/Mild Pain (1-3) Last Admin: 03/12/19 19:45 Dose: 650 mg Hydrocodone Bitart/Acetaminophen ([place] 5/325) 1 tab PO Q4H PRN PRN Reason: Moderate Pain (4-6) Last Admin: 03/13/19 07:53 Dose: 1 tab Artificial Tears (Tears Naturale) 1 drop EA EYE Q6H PRN PRN Reason: .DRY EYES Bisacodyl (Dulcolax) 10 mg [place] DAILYPRN PRN PRN Reason: Constipation Bisacodyl (Dulcolax) 10 mg PO DAILYPRN PRN PRN Reason: Constipation Calcium Carbonate (Tums) 1,000 mg PO Q4H PRN PRN Reason: Heartburn or Indigestion Cyanocobalamin (Vitamin B-12) 1,000 mcg PO DAILY [facility] Last Admin: 03/13/19 07:49 Dose: 1,000 mcg Diazepam (Valium) 5 mg PO BID [facility] Last Admin: 03/13/19 07:50 Dose: 5 mg Folic Acid (Folvite) 1 mg PO DAILY [facility] Last Admin: 03/13/19 07:49 Dose: 1 mg Iron/Minerals/Multivitamins (Theragran M) 1 tab PO DAILY [facility] Last Admin: 03/13/19 07:49 Dose: 1 tab Lactulose (Lactulose) 20 gm PO TID [facility] Last Admin: 03/13/19 07:50 Dose: 20 gm Lorazepam (Ativan) 1 mg SLOW IVP Q4H PRN PRN Reason: Anxiety/Agitation Last Admin: 03/13/19 01:55 Dose: 1 mg Lorazepam (Ativan) 1 mg PO Q4H PRN PRN Reason: Anxiety/Agitation Last Admin: 03/12/19 19:45 Dose: 1 mg Magnesium Oxide (Magnesium Oxide) 400 mg PO BID [facility] Last Admin: 03/13/19 07:49 Dose: 400 mg Ondansetron HCl (Zofran Odt) 4 mg PO Q6H PRN PRN Reason: Nausea/Vomiting Ondansetron HCl (Zofran) 4 mg IVP Q6H PRN PRN Reason: Nausea/Vomiting Last Admin: 03/11/19 02:53 Dose: 4 mg Pantoprazole Sodium (Protonix) 40 mg PO DAILY [facility] Last Admin: 03/13/19 07:49 Dose: 40 mg Senna/Docusate Sodium (Senokot S) 2 tab PO BID PRN PRN Reason: Constipation Sodium Chloride (Flush - Normal Saline) 10 ml IVF Q12HR [facility] Last Admin: 03/13/19 07:50 Dose: 10 ml Sodium Chloride (Flush - Normal Saline) 10 ml IVF PRN PRN PRN Reason: Saline Flush Last Admin: 03/09/19 20:39 Dose: 10 ml Thiamine HCl (Thiamine) 100 mg PO DAILY [facility] Last Admin: 03/13/19 07:49 Dose: 100 mg Zolpidem Tartrate (Ambien) 5 mg PO HSPRN PRN PRN Reason: Insomnia Last Admin: 03/12/19 19:45 Dose: 5 mg
[2019-03-13 13:52] VITALS: BP 139/79
--- NOTE | 2019-03-13 16:03 | DIS ---
DATE OF ADMISSION: 03/09/2019 DATE OF DISCHARGE: 03/13/2019 ADDENDUM: HOSPITAL COURSE: Please see a discharge summary dictated yesterday for more details. This patient stayed overnight in the hospital because we have to replace her electrolytes. It took longer to finish electrolytes and now subsequently electrolyte rechecked and it came back normal. The patient is completely asymptomatic. She also has a ride available. The patient is ready for discharge medically. Job ID: [id number]
== END 2019-03-13 13:56 | disposition home or self-care (01) | DRG 394 ==
LOC: ERS 08:29 → T4-B 11:06
PROVIDERS: ADMIT Internal Medicine; ATTEND Internal Medicine
PROC: HZ2ZZZZ Detoxification Services for Substance Abuse Treatment (ICD-10-PCS; principal; 2019-03-13)
DX: K64.8 Other hemorrhoids (principal); F10.239 Alcohol dependence with withdrawal, unspecified; K76.6 Portal hypertension; D61.818 Other pancytopenia; D68.4 Acquired coagulation factor deficiency; K64.4 Residual hemorrhoidal skin tags; F10.229 Alcohol dependence with intoxication, unspecified; Y90.8 Blood alcohol level of 240 mg/100 ml or more; K70.30 Alcoholic cirrhosis of liver without ascites; D64.9 Anemia, unspecified; I86.8 Varicose veins of other specified sites; F41.9 Anxiety disorder, unspecified; F32.9 Major depressive disorder, single episode, unspecified; M79.7 Fibromyalgia; E87.6 Hypokalemia; E83.42 Hypomagnesemia; Z91.14 Patient's other noncompliance with medication regimen; Z79.899 Other long term (current) drug therapy
CPT/HCPCS: 36415; 80053; 80307; 81001; 83735; 84100; 85025; 85610; 85730; 86850; 86900; 86901; 93005; 96361; 96374; 96375; C9113; J2060; J2405; J3411; J3475; J7042; J7050; S0028

== ENCOUNTER 2019-03-23 21:04 | Emergency (ER) | payer SELFPAY ==
[2019-03-23] MEDS ORDERED: Ondansetron PF 4 MG/2 ML Vial ONE (21:42)
[2019-03-23] MEDS ORDERED: Multivitamins, Adult 10 ML, Thiamine HCl 100 MG, Folic Acid 1 MG in Dextrose 5 %-0.45 %... IV SCH (21:45)
[2019-03-23 21:50] LABS: #Basophils 0.1 thou/uL (0.0-0.2); #Eosinphils 0.1 thou/uL (0.0-0.7); #Lymphocytes 3.6 thou/uL (1.20-3.40); #Monocytes 1.2 thou/uL (0.11-0.59); #Neutrophils 3.2 thou/uL (1.40-6.50); %Basophils 1.5 % (0.0-1.0); %Eosinophils 1.6 % (0.0-10.0); %Lymphocytes 43.2 % (21.0-51.0); %Monocytes 14.6 % (0.0-10.0); %Neutrophils 39.1 % (42.0-75.0); Hemoglobin 8.2 g/dL (12.0-16.0); Mean Corpuscular HGB CONC 31.6 g/dL (32.0-36.0); Mean Corpuscular Hemoglobin 24.9 pg (27.0-31.0); Mean Corpuscular Volume 78.8 fL (78.0-98.0); Mean Platelet Volume 11.4 fL (7.4-10.4); Platelet Count 136 thou/uL (130-400); RBC Distribution Width 20.9 % (11.5-14.5); White Blood Cell (WBC) Count 8.3 thou/uL (4.8-10.8)
--- NOTE | 2019-03-23 22:12 | RAD ---
LEFT ANKLE: 03/23/19 Three views. INDICATIONS: Pain. Plate and screws transfix the distal fibula. Screws transfix the distal fibula including the medial m alleolus. No acute fracture identified. IMPRESSION: No acute findings. POS: DAMON
--- NOTE | 2019-03-23 22:13 | RAD ---
RIGHT HUMERUS: 03/23/19 Two views. HISTORY: Injury. No evidence of fracture. No osseous abnormality identified. IMPRESSION: No acute abnormality. POS: KHLOE
[2019-03-23 22:14] LABS: ALT (SGPT) 25 U/L (8-55); AST (SGOT) 111 U/L (5-34); Albumin 3.4 g/dL (3.5-5.0); Alkaline Phosphatase 132 U/L (40-150); Anion Gap 18 mmol/L (10-20); BUN (Urea Nitrogen) Less than 4 mg/dL (9.8-20.1); Bilirubin, Total 1.8 mg/dL (0.2-1.2); Calc. Creatinine Clearance 0 mL/min (70-130); Calcium 8.3 mg/dL (7.8-10.44); Carbon Dioxide 18 mmol/L (22-29); Chloride 102 mmol/L (98-107); Estimated GFR-MDRD Greater than 90; Globulin 3.8 g/dL (2.4-3.5); Glucose 93 mg/dL (70-105); Lipase 27 U/L (8-78); Potassium 3.5 mmol/L (3.5-5.1); Protein, Total 7.2 g/dL (6.0-8.3); Sodium 134 mmol/L (136-145)
[2019-03-23 22:19] LABS: Alcohol 403 mg/dL (Less than 10)
--- NOTE | 2019-03-23 22:21 | CT ---
CT ABDOMEN AND PELVIS WITH IV CONTRAST: 03/23/19 Multiple axial tomograms obtained through the abdomen and pelvis with IV enhancement. History is left lower quadrant abdominal pain. Comparison made to CT abdomen and pelvis 01/24/19. Streaky atelectasis in the right lung base. The liver is mildly heterogeneous but stable in appearance. Spleen and pancreas unremarkable. Sliding diaphragmatic hernia again noted and previously described. Pancreas is unremarkable. Adrenal glands normal. The kidneys unremarkable. The urinary bladder is distended. Small bowel loops show nonspecific fluid filled distention. No sign ificant mural thickening in the small bowel. There continues to be nonspecific mural thickening of the colon similar to the prior study. Mesenteric haziness is again noted. Small amount of free abdominal fluid. Uterus and adnexa unremarka ble. Gallbladder mildly distended, unchanged in appearance from prior exam. IMPRESSION: 1. Small amount of free fluid in the abdomen and pelvis similar to the prior study. 2. Continued nonspecific mural thickening of the colon. 3. Continued mesenteric haziness similar to prior exam. 4. Sliding diaphragmatic hernia again noted as previously described. 5. Urinary bladder distention, similar to the prior exam. 6. Mildly distended gallbladder which is also similar appearance to the prior exam. POS: [facility]
[2019-03-23 23:14] LABS: Bilirubin Negative (Negative); Blood, Urine Negative (Negative); Clarity CLEAR (Clear); Glucose, Urine (Dipstick) Negative (Negative); Leukocyte Negative (Negative); Nitrite Negative (Negative); Protein, Urine (Dipstick) Negative (Neg-Trace); Specific Gravity, Urine 1.007 (1.002-1.036); Urobilinogen 0.2 mg/dL (0.2-1.0)
[2019-03-24 01:35] LABS: Lactic Acid 2.2 mmol/L (0.5-2.2)
== END 2019-03-24 01:48 | disposition home or self-care (01) ==
LOC: ERS 21:04
DX: K92.2 Gastrointestinal hemorrhage, unspecified (principal); F10.229 Alcohol dependence with intoxication, unspecified; K21.9 Gastro-esophageal reflux disease without esophagitis; I10 Essential (primary) hypertension; F32.9 Major depressive disorder, single episode, unspecified; Z79.899 Other long term (current) drug therapy
CPT/HCPCS: 36415; 74177; 80053; 80307; 81003; 82274; 83605; 83690; 85025; 86850; 86900; 86901; 87040; 87086; 96365; 96366; 96375; J2405; J3411; J7042

== ENCOUNTER 2019-04-03 19:43 | Emergency (ER) | payer SELFPAY ==
[2019-04-03 20:52] LABS: Hemoglobin 8.3 g/dL (12.0-16.0); Mean Corpuscular HGB CONC 31.4 g/dL (32.0-36.0); Mean Corpuscular Hemoglobin 25.2 pg (27.0-31.0); Red Blood Cell (RBC) Count 3.31 mill/uL (4.20-5.40); White Blood Cell (WBC) Count 6.5 thou/uL (4.8-10.8)
[2019-04-03 21:06] LABS: #Basophils 0.1 thou/uL (0.0-0.2); #Eosinphils 0.2 thou/uL (0.0-0.7); #Lymphocytes 2.8 thou/uL (1.20-3.40); #Monocytes 0.7 thou/uL (0.11-0.59); #Neutrophils 2.7 thou/uL (1.40-6.50); %Eosinophils 3.2 % (0.0-10.0); %Lymphocytes 43.7 % (21.0-51.0); %Monocytes 10.7 % (0.0-10.0); %Neutrophils 41.4 % (42.0-75.0); MDiff Complete? YES; Mean Platelet Volume 6.5 fL (7.4-10.4); Platelet Count 40 thou/uL (130-400); Platelet Morphology Comment Appears Decreased; Target Cells SLIGHT = 2-5 cells (100X) (0-1/hpf)
== END 2019-04-03 21:30 | disposition home or self-care (01) ==
LOC: ERS 19:43
DX: K92.2 Gastrointestinal hemorrhage, unspecified (principal); F10.10 Alcohol abuse, uncomplicated; I10 Essential (primary) hypertension; K21.9 Gastro-esophageal reflux disease without esophagitis; F32.9 Major depressive disorder, single episode, unspecified; Z79.899 Other long term (current) drug therapy
CPT/HCPCS: 36415; 85025; 99285

== ENCOUNTER 2019-05-04 01:17 | Inpatient (IN) | payer SELFPAY ==
[2019-05-04] MEDS ORDERED: Ondansetron PF 4 MG/2 ML Vial ONE (02:29)
[2019-05-04] MEDS ORDERED: Morphine 4 MG/ML VIAL ONE (02:29)
[2019-05-04 02:33] LABS: #Basophils 0.1 thou/uL (0.0-0.2); #Eosinphils 0.1 thou/uL (0.0-0.7); #Lymphocytes 1.4 thou/uL (1.20-3.40); #Monocytes 0.7 thou/uL (0.11-0.59); #Neutrophils 2.7 thou/uL (1.40-6.50); %Basophils 1.4 % (0.0-1.0); %Eosinophils 1.5 % (0.0-10.0); %Lymphocytes 28.4 % (21.0-51.0); %Monocytes 14.3 % (0.0-10.0); %Neutrophils 54.4 % (42.0-75.0); Hemoglobin 8.3 g/dL (12.0-16.0); Mean Corpuscular HGB CONC 32.5 g/dL (32.0-36.0); Mean Corpuscular Hemoglobin 27.5 pg (27.0-31.0); Mean Corpuscular Volume 84.6 fL (78.0-98.0); Mean Platelet Volume 5.2 fL (7.4-10.4); Platelet Count 42 thou/uL (130-400); RBC Distribution Width 20.1 % (11.5-14.5); Red Blood Cell (RBC) Count 3.03 mill/uL (4.20-5.40)
[2019-05-04 02:36] LABS: INR-International Normal Ratio 1.7; Prothrombin Time 19.5 SEC (12.0-14.7)
[2019-05-04 02:43] LABS: ALT (SGPT) 26 U/L (8-55); AST (SGOT) 197 U/L (5-34); Albumin 2.8 g/dL (3.5-5.0); Alkaline Phosphatase 159 U/L (40-150); Anion Gap 14 mmol/L (10-20); BUN (Urea Nitrogen) Less than 4 mg/dL (9.8-20.1); Bilirubin, Total 2.8 mg/dL (0.2-1.2); Calc. Creatinine Clearance 0 mL/min (70-130); Calcium 8.3 mg/dL (7.8-10.44); Carbon Dioxide 22 mmol/L (22-29); Chloride 97 mmol/L (98-107); Estimated GFR-MDRD Greater than 90; Globulin 4.2 g/dL (2.4-3.5); Glucose 139 mg/dL (70-105); Lipase 30 U/L (8-78); Potassium 3.3 mmol/L (3.5-5.1); Sodium 130 mmol/L (136-145)
[2019-05-04] MEDS ORDERED: Pantoprazole 40 MG VIAL ONE (03:51)
[2019-05-04] MEDS ORDERED: Potassium Chloride 20 MEQ TAB ONE (03:51)
[2019-05-04] MEDS ORDERED: cefTRIAXone\\ROCEPHIN 2 GM VIAL ONE (03:51)
[2019-05-04] MEDS ORDERED: Pantoprazole 80 MG in Sodium Chloride 0.9% 100 ML IVPB SCH (04:00)
[2019-05-04] MEDS ORDERED: Octreotide Acetate 1,250 MCG in Sodium Chloride 0.9% 250 ML 250 ML IVPB SCH (04:00)
[2019-05-04] MEDS ORDERED: D5 0.9% NS w/ 20 mEq KCl 1,000 ML IV SCH (04:45)
[2019-05-04 05:53] LABS: Troponin I 0.022 ng/mL (< 0.028)
[2019-05-04] MEDS ORDERED: Magnesium Sulfate 4 GM in Sodium Chloride 0.9% 250 ML 250 ML IVPB SCH (06:30)
[2019-05-04] MEDS ORDERED: Magnesium 2 GM/50 ML BAG (IN WATER) ONE (06:32)
[2019-05-04] MEDS ORDERED: Ondansetron ODT 4 MG TAB PO PRN (08:17)
[2019-05-04] MEDS ORDERED: hydrALAZINE 20 MG/ML VIAL SLOW IVP PRN (08:17)
[2019-05-04] MEDS ORDERED: Ondansetron PF 4 MG/2 ML Vial IVP PRN (08:17)
[2019-05-04] MEDS ORDERED: Acetaminophen 325 MG TAB PO PRN (08:17)
[2019-05-04] MEDS ORDERED: Pantoprazole 80 MG in Sodium Chloride 0.9% 100 ML IVP SCH (08:30)
[2019-05-04] MEDS ORDERED: Magnesium 2 GM/50 ML 2 GM in Premix Bag 1 BAG IVPB SCH (08:30)
[2019-05-04 08:42] LABS: Hemoglobin 8.9 g/dL (12.0-16.0)
[2019-05-04 08:56] LABS: Lactic Acid 2.3 mmol/L (0.5-2.2)
[2019-05-04] MEDS ORDERED: Pantoprazole 40 MG VIAL IVP SCH ×2 (09:00)
[2019-05-04 09:05] LABS: Troponin I Less than 0.010 ng/mL (< 0.028)
[2019-05-04] MEDS ORDERED: Lorazepam 2 MG/ML VIAL SLOW IVP PRN (09:14)
--- NOTE | 2019-05-04 09:25 | CT ---
PRELIMINARY REPORT/[facility]/EMERGENCY AFTER HOURS PROCEDURE: Addendum created by Herbert Paz MD on 05/04/2019 5:01 AM Central Time ([place] & [place]) Addendum: Prior im ages of 09/14/2018 and 03/23/2019 have now become available for direct comparison: Heterogeneous appe arance of hepatic parenchyma appears greatest on the current study. Current recommendations are uncha nged. The amount of ascites is greatest on the current study. Varicosities are similar to March 2019 but appear worse than September 2018. Gastric and small bowel wall thickening appears greatest on the current study. Appearance of the larg e bowel wall thickening appears similar to the study of 2018. This does not effect the currently stat ed differential. Pulmonary opacity seen at the right lung base is greater than on the most recent prior study. This do es not change the currently stated differential. Vertebral compression fractures are stable and not acute. Initial Report created on 05/04/2019 4:03 AM Central Time ([place] & [place]) EXAM: CT Abdomen and Pelvis With Contrast EXAM DATE/TIME: 05/04/2019 2:38 AM CLINICAL HISTORY: 54 years old, female; Abdominal pain; Prior surgery; Surgery type: Surgical history of tubal ligation , history of endometrial ablation; Patient HX: 54 y/o F, with h/o anemia, presents to ED C/O worseni ng weakness with x 4 mos of rectal bleeding. PT states she has not had physician eval as she does not have insurance. She was prompted to call 911 for transport as bld began leaking and dripping from he r rectum while walking to her kitchen tonight. PT describes frequent ETOH ingestion, noting she drink s a large amount. PT had x 8 beers last night. Pt's most recent upper endoscopy x 5 mos ago, findings to include esophageal varices. She has also been informed by physicians of concern for cirrh osis. Pt's pcp is Dr toledo. No current anticoag use. TECHNIQUE: Imaging protocol: Axial computed tomography images of the abdomen and pelvis with intravenous contras t. COMPARISON: Prior CT abdomen/pelvic report of 09/14/2018. Prior images are not available at the time of this inte rpretation, however have been requested for direct comparison. FINDINGS: LUNG BASES: Confluent opacity seen at the right lung base which may be secondary to atelectasis; any possibility for mild aspiration/pneumonia to be correlated clinically. Radiographic followup as clinically indica ivan. Mild dependent atelectasis at the left lung base. Calcified nodule within the lingula, and calcified left hilar lymph node consistent with sequela of p rior granulomatous disease. VASCULAR: Mild cardiac enlargement. No abdominal aortic aneurysm, dissection, or retroperitoneal hematoma. The portal vein is not thrombosed. AP diameter of the main portal vein is 14.4 mm. Distal esophageal varicosities are noted. Varicosities noted within the gastrohepatic ligament. Recanalized left umbilical vein noted. Perisplenic varicosities are noted as well as splenorenal shun ting. Elevated perirectal vascularity, consistent with hemorrhoids. Prominent retroperitoneal vessels likely related to portosystemic shunting. PERITONEAL : No free air. There is moderately large amount of free fluid throughout the peritoneal cavity. Attenuation of fluid is within a simple range. No evidence of peritoneal thickening is seen. There is elevated attenuation and vascularity throughout the mesentery as well as trace amounts of me senteric fluid and edema, consistent with sequela of liver disease. Diffuse inflammation could have a similar appearance. GI: Thickened appearance of the distal esophagus. Mild periesophageal edema. Distal esophageal varicositi es are noted. Clinical correlation for esophagitis. There is a small gas and fluid containing hiatal hernia. The distal esophagus and stomach are not sufficiently distended to evaluate wall thickening o r exclude fold thickening. If indicated, consider dedicated evaluation. There is mild perigastric donnie ma and fluid. Gastritis cannot be excluded. There is some retroperitoneal edema adjacent to the duodenum. Small bowel loops are slightly distended up to 2.5 cm without evidence of high-grade obstruction. There is diffuse small bowel wall and fold thickening. Although this could be related to gastroenteri tis, this may be seen with hypoproteinemia secondary to liver disease. Clinical correlation with any GI sy mptoms. No mesenteric lymphadenopathy by size criteria. Scattered fecal material and gas within portions of the colon. The colon and rectum appear thick wall ed. Colitis cannot be excluded although appearance could be secondary to hypoproteinemia secondary to liver disease. Given the patient's rectal bleeding, correlation with clinical exam to exclude any possibility of a r ectal lesion is advised. The rectum is not well evaluated intrinsically by this exam, secondary to fe lashawn material and lack of appropriate distention. No evidence of acute diverticulitis. The appendix is not conclusively identified. HEPATOBILIARY, PANCREAS, SPLEEN: Sagittal hepatic length is 22.6 cm. There is slight undulation of the surface of the liver, consisten t with changes of cirrhosis. There is severe heterogeneity of hepatic parenchyma. Nonemergent dynamic contrast MRI is advised to exclude any possibility for diffuse hepatocellular carcinoma. Slightly distended gallbladder. Gallbladder wall is thickened and there is trace amount of pericholec ystic fluid. No calcified gallstones or biliary dilation is seen. Cholecystitis cannot be excluded by this exam, however findings may be artifactual secondary to hypoproteinemia. If there are symptoms r elated to the gallbladder, consider ultrasound. No pancreatic inflammation. Spleen not enlarged. Slight heterogeneity of splenic parenchyma. A few punctate splenic calcification s noted, consistent with sequela of prior granulomatous disease. ADRENALS, KIDNEYS, BLADDER, RETROPERITONEAL: Adrenals within normal limits. No hydronephrosis. Symmetric renal enhancement. No perinephric fluid. Mildly distended urinary bladder. No bladder wall thickening. PELVIC: No dominant cystic pelvic mass seen. Anteverted uterus. MUSCULOSKELETAL: Incompletely evaluated bilateral breast implants. There is some capsular calcification on the left. Small fat containing inguinal hernias. Moderately severe vertebral compression fracture noted at T12. There is mild superior endplate compre ssion at T11. These are of indeterminate acuity, although not mentioned by prior report. IMPRESSION: Cirrhotic appearing liver with heterogeneous parenchyma. Nonemergent MRI is advised to exclude any possibility of underlying hepatocellular carcinoma. Moderately large amount of ascites. Varicosities are noted throughout, including hemorrhoids. Gastrointestinal findings and recommendations discussed above. Thickwalled appearing bowel loops as well as thickwalled appearing urinary bladder and edematous mesentery may be artifactual secondary to liver disease. Clinical correlation is advised. Findings an d differential discussed above in detail. Confluent pulmonary opacity at the right lung base may be secondary to atelectasis, clinical exclusio n for mild aspiration/pneumonia. Vertebral compression fracture deformities of indeterminate acuity. Other incidental findings discussed above. Thank you for allowing us to participate in the care of your patient. Dictated and Authenticated by: Herbert Paz MD 05/04/2019 4:03 AM Central Time ([place] & [place]) FINAL REPORT EMERGENCY AFTER HOURS CT ABDOMEN AND PELVIS: Date: 05/04/19 FINDINGS/IMPRESSION: I agree with the preliminary report provided by [facility]. Please see the preliminary findings for further details. POS: BH
[2019-05-04 10:09] LABS: Hemoglobin 8.9 g/dL (12.0-16.0)
--- NOTE | 2019-05-04 11:07 | HP ---
PRIMARY CARE PHYSICIAN: The patient's primary care is at the [facility]. CHIEF COMPLAINT: Bright red blood per rectum. HISTORY OF PRESENT ILLNESS: The history of present illness is very limited as the patient is extremely drowsy and is only able to stay awake enough to answer with 1 or 2 words in very short sentences and some questions she will basically not answer at all. However, Ms. Osorio is a 54-year-old female, who has a history of cirrhosis with portal hypertension. She also has a history of esophageal varices. She was recently admitted to our hospital for a lower GI bleed, which was attributed to hemorrhoids. She has also had a colonoscopy back in January of 2019, in which it showed hemorrhoids and markedly hyperemic and erythematous rectal mucosa and no other pathology was noted. She says that in the last 3 weeks she has been having bright red blood per rectum almost every day. When asked if this is similar to what she had before, she says no, this time it feels different, but she will not elaborate on that. She says that she has stool mixed with blood sometimes and then sometimes it is latricia blood. She also complains of some abdominal pain on "both sides." She denies any other symptoms such as fevers, chills, nausea, or vomiting. Apparently due to these symptoms, she came to the ER for evaluation. In the ER, she had a CT scan of the abdomen and pelvis, which is pending and she also had a complete blood cell count showing a hemoglobin of 8.3, which is actually about her baseline. She is being admitted for further evaluation. The patient otherwise has no other complaints. REVIEW OF SYSTEMS: Unobtainable due to the patient's drowsiness. PAST MEDICAL HISTORY: Significant for alcoholism, portal hypertension, esophageal varices, hypertension, chronic low back pain, peptic ulcer disease, and substance abuse. PAST SURGICAL HISTORY: She has had a breast augmentation surgery, bilateral tubal ligation, bladder suspension, left ankle surgery. ALLERGIES: NO KNOWN DRUG ALLERGIES. FAMILY HISTORY: Significant for coronary artery disease. SOCIAL HISTORY: She lives with family. MEDICATIONS: She says they are the same as when she left the hospital last time and these include, 1. Tramadol 50 mg q.6. 2. Thiamine 100 mg daily. 3. Inderal 10 mg twice a day. 4. Protonix 40 mg twice a day. 5. Multivitamins once daily. 6. Lactulose 20 g twice a day. 7. Gabapentin 300 mg daily. 8. Folic acid 1 mg daily. 9. Vitamin B12 1000 mcg p.o. daily. 10. Tegretol 200 mg twice a day with meals. 11. Zanaflex 4 mg three times a day. 12. Temazepam 30 mg at bedtime. 13. Pantoprazole 40 mg twice a day. 14. MS Contin 30 mg t.i.d. 15. Melatonin 10 mg daily. 16. Fluoxetine 20 mg at bedtime. 17. Silenor 3 mg at bedtime. 18. Clonidine 0.1 p.o. at bedtime. 19. Tylenol butalbital daily. 20. Calcium carbonate 500 mg daily. PHYSICAL EXAMINATION: GENERAL: She is a bit drowsy, but arousable, alert and oriented to person, place, and time. VITAL SIGNS: Blood pressure is 107/62, her heart rate is in the 80s, respiratory rate of 16. She is afebrile. HEENT: Pupils are equal, round, and reactive. Extraocular muscles are intact. Her sclerae are anicteric. Throat, there is no erythema, no exudates. NECK: No adenopathy. No bruits. LUNGS: There is a clear to auscultation. There is no wheezing, no rales, no rhonchi. CARDIOVASCULAR: This is normal S1 and S2. There is no S3 or S4. No murmurs, clicks, or rubs. ABDOMEN: Soft. It is nondistended. Positive for bowel sounds. No rebound. No guarding. No organomegaly. She did have some mild epigastric tenderness and what appears to be a positive fluid wave or dullness in the flanks. EXTREMITIES: She has 1+ edema in the calves. There are no skin lesions, no joint effusions. NEUROLOGIC: Her cranial nerves are intact. Her muscle strength is 5/5 in both upper and lower extremities. SKIN AND INTEGUMENT: No skin changes. No rash. LABORATORY RESULTS: Her white blood cell count is 5, hemoglobin is 8.3, hematocrit is 25.6, and platelet count is 42. INR is 1.7. Sodium is 130, potassium is 3.3, chloride is 97, CO2 is 22, BUN is less than 4, creatinine is 0.55, glucose is 139, lactic acid is 3.1. Her magnesium was 1.1, total bilirubin 2.8. Troponin 0.022. IMAGING STUDIES: The preliminary on the CT showed a moderately large amount of ascites and cirrhotic-appearing liver and some vertebral compression fractures. ASSESSMENT AND PLAN: 1. This is a pleasant 54-year-old female, who presents to the emergency room with bright red blood per rectum as well as some abdominal discomfort. Her hemoglobin and hematocrit are actually at her baseline and even higher than what has been seen in the past. She will be admitted to the hospital. We will monitor her H and H, transfuse if her hemoglobin drops below 7. She will be placed on a proton pump inhibitor IV and consider also Sandostatin given she has a history of esophageal varices in the past. We will consult GI for further evaluation. 2. Abdominal pain. She does have a moderate amount of ascites and is at risk therefore for a spontaneous bacterial peritonitis. We will get an ultrasound-guided paracentesis to rule this out. 3. History of alcohol abuse with reported ongoing drinking. She will be placed on an ASE protocol for potential withdrawal of symptoms and further recommendations are to follow. Job ID: [id number]
[2019-05-04] MEDS: Multivitamins, Adult 10 ML, Folic Acid 1 MG, Thiamine HCl 100 MG in Dextrose 5 %-0.45 %... IV SCH (11:51)
[2019-05-04] MEDS ORDERED: ISOVUE-370 76%-LOCM 1 ML ONE (11:53)
[2019-05-04] MEDS ORDERED: Pantoprazole 80 MG, Admixture Fee 1 EACH in Sodium Chloride 0.9% 100 ML IVP SCH (13:45)
--- NOTE | 2019-05-04 18:29 | CON ---
DATE OF CONSULTATION: REASON FOR CONSULTATION: Cirrhosis, ascites, GI hemorrhage. HISTORY OF PRESENT ILLNESS: Ms. Osorio is a 54-year-old alcoholic, well known to the GI Service from previous evaluations and admissions. She was last here on 03/13 when she was discharged after admission for alcohol intoxication, withdrawal, and rectal bleeding. She was here also on 03/23 in the emergency room. She was in for rectal bleeding at that time as well. This time, she presented at 2:00 this morning with complaints of worsening weakness, 4 months of rectal bleeding. She has a blood dripping from her bottom on and off. She continues to drink alcohol on a daily basis. She states the reason give her medicines for the shakes, although every time she has been here, which is usually about every two weeks, she completely goes through withdrawals and DTs while here before being discharged. In any event, she has come in with the same complaints. She denies any fever, chills, hematemesis, or melena. She denies NSAID use. She had a colonoscopy on 01/26/2019, there were small rectal varicosities and large internal hemorrhoids as well as portal hypertensive colopathy. She last had an EGD with Dr. Masoud Curtis on 12/22/2018, with a small healing Snehal-Crews tear, portal hypertensive gastropathy, and no varices, esophageal or gastric. PAST MEDICAL HISTORY: Cirrhosis decompensated with ascites, hypertension, history of mitral valve prolapse, multiple upper endoscopies for hematemesis from Snehal-Crews tears from alcohol abuse in the past, tubal ligation, breast augmentation, left ankle fracture surgery with Dr. Dickson in 2017, colonoscopy earlier this year with portal colopathy and prominent rectal hemorrhoids, small varices. FAMILY HISTORY: Hypertension and heart disease. No liver disease or colon cancer. REVIEW OF SYSTEMS: She feels shaky. She has not had any seizures. She denies having blackouts. She denies cough, shortness of breath, dyspnea, fever, chest pain, dyspnea on exertion, nausea, vomiting, muscle pain, joint pains, or recent trauma. MEDICATIONS: At home; 1. Tramadol. 2. Zanaflex. 3. Clonidine. 4. Tegretol. 5. Thiamine. 6. Restoril. 7. Inderal. 8. Protonix. 9. Theragran. 10. P.r.n. morphine. 11. Magnesium. 12. Lactulose in the past. 13. Lorazepam. 14. Gabapentin. 15. Folic acid. 16. B12. It is unclear what of any of these she is taking, she is not sure. Medications here; 1. Tylenol. 2. Ativan p.r.n. for DT protocol. 3. Octreotide drip. 4. Zofran. 5. Pantoprazole. 6. Banana bag daily. PHYSICAL EXAMINATION: GENERAL: She is resting in bed. She is in no distress. She is a little bit shaky. She has ketotic odor to her breath. VITAL SIGNS: Pulse 78 to 128, and it is 113 now. Temperature is 98.6, respirations 18, and O2 saturation 92%. HEENT: She is mildly icteric. LUNGS: Clear. HEART: Regular rate and rhythm without clicks or murmurs. ABDOMEN: Soft and nontender. There is no rebound. There is no guarding. There is shifting dullness. There is no fluid wave. EXTREMITIES: Reveal no edema. RECTAL: Reveals trace blood in the rectal vault with no clots or lesions. NEUROLOGIC: She has had mild asterixis. LABORATORY STUDIES: Sodium 130, potassium 3.3, chloride 97, bicarb 22, BUN 4, creatinine 0.5, glucose 139, bilirubin 2.8, AST 187, ALT 26, alkaline phosphatase 159, albumin 2.8, total protein 7, globulin 4.2. Ammonia in January was 31. Hepatitis A, B, and C, negative last year. Toxicology; alcohol 403 on 03/23, it was not repeated on this admission. She had SBP on a paracentesis in November. INR is 1.7. Hemoglobin is 8 at 1400 hours today, it was 8.3 at 1:00 this morning, it was 8.3 on 04/03. White count 5, platelet count 42. ASSESSMENT: 1. Cirrhosis from ongoing alcohol abuse. 2. Ongoing alcohol abuse. 3. Rectal bleeding from hemorrhoids with no signs of overt hemorrhage. Her hemoglobin has been stable. 4. No history of esophageal varices. She has some small rectal varices, but is not having bleeding consistent with that. 5. Multiple electrolyte abnormalities, nutritional deficiency secondary to alcohol abuse. 6. Prior history of DTs and withdrawal. RECOMMENDATIONS: 1. DT precautions. 2. Banana bag daily. 3. Stop serial hemoglobin and hematocrits, get a CBC and check all electrolytes tomorrow. 4. Can stop octreotide drip. 5. Can stop Protonix drip and use PPI p.r.n. Job ID: [id number]
[2019-05-04] MEDS: traMADol HCl 50 MG TAB PO PRN (22:21)
[2019-05-04 22:37] LABS: Lactic Acid 2.2 mmol/L (0.5-2.2)
[2019-05-04 22:43] LABS: ALT (SGPT) 26 U/L (8-55); AST (SGOT) 163 U/L (5-34); Albumin 2.6 g/dL (3.5-5.0); Alkaline Phosphatase 139 U/L (40-150); Bilirubin, Direct 1.7 mg/dL (0.1-0.3); Bilirubin, Total 2.7 mg/dL (0.2-1.2); Protein, Total 6.5 g/dL (6.0-8.3)
[2019-05-05 06:51] LABS: #Basophils 0.1 thou/uL (0.0-0.2); #Eosinphils 0.1 thou/uL (0.0-0.7); #Lymphocytes 0.9 thou/uL (1.20-3.40); #Monocytes 0.6 thou/uL (0.11-0.59); #Neutrophils 2.7 thou/uL (1.40-6.50); %Basophils 1.3 % (0.0-1.0); %Eosinophils 2.4 % (0.0-10.0); %Lymphocytes 20.3 % (21.0-51.0); %Monocytes 13.3 % (0.0-10.0); %Neutrophils 62.7 % (42.0-75.0); Hemoglobin 7.9 g/dL (12.0-16.0); Mean Corpuscular HGB CONC 31.8 g/dL (32.0-36.0); Mean Corpuscular Hemoglobin 27.5 pg (27.0-31.0); Mean Corpuscular Volume 86.6 fL (78.0-98.0); Mean Platelet Volume 12.3 fL (7.4-10.4); Platelet Count 34 thou/uL (130-400); RBC Distribution Width 20.5 % (11.5-14.5); Red Blood Cell (RBC) Count 2.86 mill/uL (4.20-5.40); White Blood Cell (WBC) Count 4.3 thou/uL (4.8-10.8)
[2019-05-05 07:08] LABS: Anion Gap 12 mmol/L (10-20); BUN (Urea Nitrogen) Less than 4 mg/dL (9.8-20.1); Calc. Creatinine Clearance 172 mL/min (70-130); Carbon Dioxide 23 mmol/L (22-29); Chloride 102 mmol/L (98-107); Estimated GFR-MDRD Greater than 90; Glucose 107 mg/dL (70-105); Magnesium 1.4 mg/dL (1.6-2.6); Potassium 3.7 mmol/L (3.5-5.1); Sodium 133 mmol/L (136-145)
[2019-05-05 07:10] LABS: Phosphorus 2.1 mg/dL (2.3-4.7)
[2019-05-05] MEDS: Pantoprazole 40 MG VIAL IVP SCH (09:15)
[2019-05-05] MEDS: Sodium Chloride 0.9% (PF) 10 ML VIAL FS PRN (09:15)
[2019-05-05] MEDS ORDERED: Sodium Bicarbonate 2.5 MEQ/5 ML VIAL ONE (09:46)
--- NOTE | 2019-05-05 10:34 | ULT ---
Exam: Ultrasound guided paracentesis HISTORY: Ascites COMPARISON: November 12, 2018 FINDINGS: Successful ultrasound-guided paracentesis. Total of 3.2 L of normal appearingascites was as pirated. TECHNIQUE: Consent obtained reformatory ultrasound-guided paracentesis. Right lower quadrant was deem ed appropriate. Skin was prepped and draped in a sterile fashion. 1% lidocaine, buffered with sodium bicarbonate was used for local anesthesia. Under ultrasound guidance, a 5 [place] 7 cm Yueh cat heter is advanced in the peritoneal space. A total of 3.2 L of normal appearingascites was aspirated. No immediate or postprocedural complications IMPRESSION: Successful ultrasound-guided paracentesis.
[2019-05-05] MEDS: PHOS-NAK 1 PKT PACK PO SCH ×2 (11:27→20:26)
[2019-05-05] MEDS: Magnesium Oxide 400 MG TAB PO SCH (11:27)
[2019-05-05] MEDS: Lorazepam 1 MG TAB PO PRN ×3 (11:39→22:36)
[2019-05-05] MEDS: Multivitamins, Adult 10 ML, Folic Acid 1 MG, Thiamine HCl 100 MG in Dextrose 5 %-0.45 %... IV SCH (12:30)
[2019-05-05 13:18] LABS: BF Color Yellow; BF RBC Count - Manual 698 /cumm; BF WBC/Nonhematics Ct. - Manua 145 /cumm; Body Fluid Source Ascites Body Fluid; Clarity Clear (Clear); Tube # EDTA
[2019-05-05 13:21] LABS: BF Segmented Neutrophils 1 %; Cell Count Non Hematic 89 %; Lymphocytes 10 %
[2019-05-05] MEDS: traMADol HCl 50 MG TAB PO PRN (15:06)
--- NOTE | 2019-05-05 16:47 | PRG ---
DATE OF SERVICE: 05/05/2019 SUBJECTIVE: Ms. Osorio is little bit confused. She is shaky. She is tachycardic. OBJECTIVE: VITAL SIGNS: Pulse was 120 to 110, temperature 99, 98, blood pressure 135 to 80. ABDOMEN: Nontender. HEENT: Mild icterus. EXTREMITIES: Edema. Spider angiomata on chest, hands, and abdomen. LABORATORY DATA: Tap for SBP was negative with white blood cells of 145, segs 1%. Sodium 133, BUN and creatinine are less than 4 and less than 0.49, phosphorus is 2.1, magnesium is 1.4. White count 4.3, hemoglobin 7.9, platelet count 34,000. ASSESSMENT: 1. Alcoholic liver disease with ongoing abuse. 2. Recurrent nausea and vomiting secondary to #1. 3. Rectal bleeding secondary to hemorrhoids, small rectal varices with no signs of overt hemorrhage. Hemoglobin is stable. 4. Anemia related to rectal bleeding and also malnutrition and continued alcohol abuse. 5. Thrombocytopenia related to portal hypertension. Continued alcohol abuse. 6. Multiple electrolyte abnormalities. 7. Alcohol withdrawal. RECOMMENDATIONS: 1. Replace electrolytes . Would monitor daily. 2. Continue banana bag daily. 3. Continue to treat for delirium tremens. 4. No signs of SBP. Antibiotics can be stopped. At this time, there are no signs of GI bleeding, that requires endoscopy. She has had recent upper and lower endoscopies. Would treat symptomatically with suppositories, if needed, and we will sign off now and follow from a distance. Thank you for including me in this patient's evaluation. Job ID: [id number]
--- NOTE | 2019-05-05 16:57 | PDOC.HOSPP ---
- Subjective Subjective: Ms. Osorio was seen today in follow-up at approximately 13:10. She is more alert today when I am seeing her. she does not have any new complaints. Her abdominal pain is better after paracentesis. - Objective Vital Signs & Weight: Vital Signs (12 hours) Temp Pulse Resp BP BP Pulse Ox 05/05/19 11:36 99.0 F 110 H 18 135/80 99 05/05/19 11:35 135/80 05/05/19 09:00 98.8 F 120 H 18 139/82 98 05/05/19 08:00 139/82 99 Weight Weight 184 lb 5 oz I&O: 05/04/19 05/05/19 05/06/19 06:59 06:59 06:59 Intake Total 2065 Output Total 3200 Balance 5 -3200 Result Diagrams: 05/05/19 06:17 05/05/19 06:17 ROS - Review of Systems All systems: All other ROS were reviewed and found negative. - Medication Medications: Active Medications Generic Name Dose Route Start Last Admin Trade Name Freq PRN Reason Stop Dose Admin Acetaminophen 325 mg 05/04/19 08:17 05/04/19 12:12 Tylenol PO 325 mg Q4H PRN Administration Headache/Fever/Mild Pain (1-3) Multivitamins 10 ml/ Folic 1,011.2 mls @ 75 mls/hr 05/04/19 09:15 05/05/19 12 :30 Acid 1 mg/ Thiamine HCl 100 mg IV 1,011.2 mls / Dextrose/Sodium Chloride Q24HR STEPH Administration Lorazepam 1 mg 05/04/19 09:14 05/05/19 02:55 Ativan SLOW IVP 1 mg Q4H PRN Administration Anxiety/Agitation Lorazepam 1 mg 05/04/19 09:14 05/05/19 11:39 Ativan PO 1 mg Q4H PRN Administration Anxiety/Agitation Magnesium Oxide 400 mg 05/05/19 09:00 05/05/19 11:27 Magnesium Oxide PO 400 mg DAILY STEPH Administration Miscellaneous Medication 1 pkt 05/05/19 09:00 05/05/19 11:27 Phos-Nak PO 05/07/19 21:01 1 pkt BID STEPH Administration Pantoprazole Sodium 40 mg 05/05/19 09:00 05/05/19 09:15 Protonix IVP 40 mg DAILY STEPH Administration Sodium Chloride 10 ml 05/04/19 08:19 05/05/19 09:15 Normal Saline Pf FS 10 ml PRN PRN Administration RECONSTITUTION Sodium Chloride 10 ml 05/04/19 14:24 05/05/19 12:30 Flush - Normal Saline IVF 10 ml PRN PRN Administration Saline Flush Tramadol HCl 50 mg 05/04/19 21:20 05/05/19 15:06 Ultram PO 50 mg Q4H PRN Administration Moderate Pain (4-6) - Exam Eye: PERRL Heart: RRR, no murmur, no gallops, no rubs Respiratory: CTAB, no wheezes, no rales, no ronchi, normal chest expansion Gastrointestinal: soft, normal bowel sounds (+ distended, + dullness in the flanks,), distended Extremities: no cyanosis, no clubbing, 1+ LE edema (trace pedal edema) Hosp A/P (1) Hemorrhoids, internal, with bleeding Code(s): K64.8 - OTHER HEMORRHOIDS Status: Acute (2) Ascites Code(s): R18.8 - OTHER ASCITES Status: Acute Qualifiers: Ascites type: due to alcoholic cirrhosis Qualified Code(s): K70.31 - Alcoholic cirrhosis of liver with ascites (3) Hypomagnesemia Code(s): E83.42 - HYPOMAGNESEMIA Status: Acute - Plan * Acute on chronic anemia, which is multi-factoral, - her H&H is a bit lower will monitor. Bleeding on this occasion is felt to be due to Internal hemorrhoids. * Abdomial pain- likely due to massive ascites- she is symptomatically improved after large volume paracentesis. There is no evidence of SBP * Alcohol dependence with withdrawal- she is tachycardic - will continue Ativan as needed * Hypomagnesemia, and Phosphatemia- will continue to replace * Hopefuly home tomorrow
[2019-05-06 05:08] LABS: #Eosinphils 0.1 thou/uL (0.0-0.7); #Lymphocytes 1.3 thou/uL (1.20-3.40); #Monocytes 0.5 thou/uL (0.11-0.59); %Basophils 1.1 % (0.0-1.0); %Eosinophils 3.5 % (0.0-10.0); %Lymphocytes 31.1 % (21.0-51.0); %Monocytes 13.5 % (0.0-10.0); %Neutrophils 50.9 % (42.0-75.0); Hemoglobin 8.3 g/dL (12.0-16.0); INR-International Normal Ratio 1.8; Mean Corpuscular HGB CONC 31.9 g/dL (32.0-36.0); Mean Corpuscular Volume 87.6 fL (78.0-98.0); Mean Platelet Volume 5.5 fL (7.4-10.4); Platelet Count 34 thou/uL (130-400); RBC Distribution Width 20.9 % (11.5-14.5); Red Blood Cell (RBC) Count 2.95 mill/uL (4.20-5.40)
[2019-05-06 05:26] LABS: Anion Gap 12 mmol/L (10-20); BUN (Urea Nitrogen) Less than 4 mg/dL (9.8-20.1); Calc. Creatinine Clearance 163 mL/min (70-130); Calcium 8.4 mg/dL (7.8-10.44); Carbon Dioxide 23 mmol/L (22-29); Chloride 98 mmol/L (98-107); Estimated GFR-MDRD Greater than 90; Glucose 91 mg/dL (70-105); Potassium 3.1 mmol/L (3.5-5.1); Sodium 130 mmol/L (136-145)
[2019-05-06] MEDS ORDERED: Potassium Chloride 20 MEQ TAB PO SCH (07:45)
[2019-05-06] MEDS: Magnesium Oxide 400 MG TAB PO SCH (09:25)
[2019-05-06] MEDS: Sodium Chloride 0.9% (PF) 10 ML VIAL FS PRN (09:25)
[2019-05-06] MEDS: Pantoprazole 40 MG VIAL IVP SCH (09:25)
[2019-05-06] MEDS: PHOS-NAK 1 PKT PACK PO SCH ×2 (09:26→19:57)
[2019-05-06] MEDS: Lorazepam 1 MG TAB PO PRN ×2 (13:15→20:02)
[2019-05-06] MEDS: Multivitamins, Adult 10 ML, Folic Acid 1 MG, Thiamine HCl 100 MG in Dextrose 5 %-0.45 %... IV SCH (13:15)
[2019-05-06 15:04] VITALS: BMI 28.8
--- NOTE | 2019-05-06 18:47 | PDOC.HOSPP ---
- Subjective Subjective: Ms. Osorio was seen today at approximately 11:30Am in follow-up of Abdominal pain and bleeding hemorrhoids. She does not have any new complaints, except that she has diarrhea, and she is too weak to go home. - Objective Vital Signs & Weight: Vital Signs (12 hours) Temp Pulse Resp BP BP Pulse Ox 05/06/19 16:00 98.6 F 109 H 16 114/68 114/68 98 05/06/19 12:00 97.9 F 98 18 131/75 122/82 96 05/06/19 08:00 131/75 96 05/06/19 07:57 98.1 F 103 H 16 131/75 96 Weight Admit Weight 183 lb 4.8 oz Weight 173 lb 8 oz I&O: 05/05/19 05/06/19 05/07/19 06:59 06:59 06:59 Intake Total 2750.802.6807 Output Total 1795 3750 Balance 5967 -5294 -2223 Result Diagrams: 05/06/19 04:45 05/06/19 04:45 ROS - Review of Systems All systems: All other ROS were reviewed and found negative. - Medication Medications: Active Medications Generic Name Dose Route Start Last Admin Trade Name Freq PRN Reason Stop Dose Admin Acetaminophen 325 mg 05/04/19 08:17 05/04/19 12:12 Tylenol PO 325 mg Q4H PRN Administration Headache/Fever/Mild Pain (1-3) Multivitamins 10 ml/ Folic 1,011.2 mls @ 75 mls/hr 05/04/19 09:15 05/06/19 13 :15 Acid 1 mg/ Thiamine HCl 100 mg IV 1,011.2 mls / Dextrose/Sodium Chloride Q24HR STEPH Administration Lorazepam 1 mg 05/04/19 09:14 05/05/19 02:55 Ativan SLOW IVP 1 mg Q4H PRN Administration Anxiety/Agitation Lorazepam 1 mg 05/04/19 09:14 05/06/19 13:15 Ativan PO 1 mg Q4H PRN Administration Anxiety/Agitation Magnesium Oxide 400 mg 05/05/19 09:00 05/06/19 09:25 Magnesium Oxide PO 400 mg DAILY STEPH Administration Miscellaneous Medication 1 pkt 05/05/19 09:00 05/06/19 09:26 Phos-Nak PO 05/07/19 21:01 1 pkt BID STEPH Administration Pantoprazole Sodium 40 mg 05/05/19 09:00 05/06/19 09:25 Protonix IVP 40 mg DAILY STEPH Administration Sodium Chloride 10 ml 05/04/19 08:19 05/06/19 09:25 Normal Saline Pf FS 10 ml PRN PRN Administration RECONSTITUTION Sodium Chloride 10 ml 05/04/19 14:24 05/06/19 09:26 Flush - Normal Saline IVF 10 ml PRN PRN Administration Saline Flush Tramadol HCl 50 mg 05/04/19 21:20 05/05/19 15:06 Ultram PO 50 mg Q4H PRN Administration Moderate Pain (4-6) - Exam Eye: PERRL Heart: RRR, no murmur, no gallops, no rubs, normal peripheral pulses Respiratory: CTAB, no wheezes, no rales, no ronchi Gastrointestinal: soft, non-tender, normal bowel sounds, distended Extremities: no cyanosis, no clubbing, no edema Hosp A/P (1) Hemorrhoids, internal, with bleeding Code(s): K64.8 - OTHER HEMORRHOIDS Status: Acute (2) Ascites Code(s): R18.8 - OTHER ASCITES Status: Acute Qualifiers: Ascites type: due to alcoholic cirrhosis Qualified Code(s): K70.31 - Alcoholic cirrhosis of liver with ascites (3) Hypomagnesemia Code(s): E83.42 - HYPOMAGNESEMIA Status: Acute - Plan * Hemorrhoidal bleeding- stable * Diarrhea- will check stool for C. Diff * Weakness may be related to electrolyte abnormalities- continue to replace * Alcohol abuse- continue ASE protocol * PT/OT
[2019-05-07 06:03] LABS: Band 3 % (5-11); Eosinophils 8 % (0-10); Hemoglobin 8.5 g/dL (12.0-16.0); Lymphocytes 29 % (21-51); MDiff Complete? YES; Mean Corpuscular Hemoglobin 27.4 pg (27.0-31.0); Mean Corpuscular Volume 88.4 fL (78.0-98.0); Mean Platelet Volume 12.1 fL (7.4-10.4); Monocytes 12 % (0-10); Neutrophil 48 % (42-75); Platelet Count 47 thou/uL (130-400); Platelet Morphology Comment Appears Decreased; RBC Distribution Width 21.3 % (11.5-14.5); Red Blood Cell (RBC) Count 3.11 mill/uL (4.20-5.40); White Blood Cell (WBC) Count 5.2 thou/uL (4.8-10.8)
[2019-05-07 06:04] LABS: Anion Gap 14 mmol/L (10-20); BUN (Urea Nitrogen) Less than 4 mg/dL (9.8-20.1); Calc. Creatinine Clearance 147 mL/min (70-130); Calcium 8.5 mg/dL (7.8-10.44); Carbon Dioxide 21 mmol/L (22-29); Chloride 101 mmol/L (98-107); Estimated GFR-MDRD Greater than 90; Glucose 91 mg/dL (70-105); Potassium 3.1 mmol/L (3.5-5.1); Sodium 133 mmol/L (136-145)
[2019-05-07] MEDS: Magnesium Oxide 400 MG TAB PO SCH (09:03)
[2019-05-07] MEDS: Pantoprazole 40 MG VIAL IVP SCH (09:03)
[2019-05-07] MEDS: Lorazepam 1 MG TAB PO PRN (09:03)
[2019-05-07] MEDS: Sodium Chloride 0.9% (PF) 10 ML VIAL FS PRN (09:04)
[2019-05-07] MEDS: PHOS-NAK 1 PKT PACK PO SCH (09:07)
[2019-05-07] MEDS ORDERED: Potassium Chloride 20 MEQ TAB PO SCH (09:45)
[2019-05-07] MEDS: Multivitamins, Adult 10 ML, Folic Acid 1 MG, Thiamine HCl 100 MG in Dextrose 5 %-0.45 %... IV SCH (10:58)
[2019-05-07 12:31] VITALS: TEMP 98.4
--- NOTE | 2019-05-07 13:53 | PDOC.HOSPP ---
- Subjective Subjective: Ms. Osorio was seen today in follow-up of Hemorrhoidal bleeding. she does not have any new complaints. she denies any diarrhea, or problems walking today. - Objective Vital Signs & Weight: Vital Signs (12 hours) Temp Pulse Pulse Pulse Resp BP BP 05/07/19 12:00 98.4 F 116 H 18 05/07/19 10:47 113 H 122 H 133/83 05/07/19 08:00 97.2 F L 111 H 18 136/83 05/07/19 04:00 98.9 F 109 H 18 124/79 BP BP Pulse Ox 05/07/19 12:00 146/87 H 97 05/07/19 10:47 146/87 H 05/07/19 08:00 136/83 100 05/07/19 04:00 124/79 97 Weight Admit Weight 183 lb 4.8 oz Weight 162 lb 9.6 oz I&O: 05/06/19 05/07/19 05/08/19 06:59 06:59 06:59 Intake Total 782 3673 Output Total 4492 5695 [id number] Result Diagrams: 05/07/19 05:36 05/07/19 03:30 ROS - Review of Systems All systems: All other ROS were reviewed and found negative. - Medication Medications: Active Medications Generic Name Dose Route Start Last Admin Trade Name Freq PRN Reason Stop Dose Admin Acetaminophen 325 mg 05/04/19 08:17 05/04/19 12:12 Tylenol PO 325 mg Q4H PRN Administration Headache/Fever/Mild Pain (1-3) Multivitamins 10 ml/ Folic 1,011.2 mls @ 75 mls/hr 05/04/19 09:15 05/07/19 10 :58 Acid 1 mg/ Thiamine HCl 100 mg IV 1,011.2 mls / Dextrose/Sodium Chloride Q24HR STEPH Administration Lorazepam 1 mg 05/04/19 09:14 05/05/19 02:55 Ativan SLOW IVP 1 mg Q4H PRN Administration Anxiety/Agitation Lorazepam 1 mg 05/04/19 09:14 05/07/19 09:03 Ativan PO 1 mg Q4H PRN Administration Anxiety/Agitation Magnesium Oxide 400 mg 05/05/19 09:00 05/07/19 09:03 Magnesium Oxide PO 400 mg DAILY STEPH Administration Miscellaneous Medication 1 pkt 07/28/19 09:00 05/07/19 09:07 Phos-Nak PO 05/07/19 21:01 1 pkt BID STEPH Administration Pantoprazole Sodium 40 mg 05/05/19 09:00 05/07/19 09:03 Protonix IVP 40 mg DAILY STEPH Administration Sodium Chloride 10 ml 05/04/19 08:19 05/07/19 09:04 Normal Saline Pf FS 10 ml PRN PRN Administration RECONSTITUTION Sodium Chloride 10 ml 05/04/19 14:24 05/06/19 09:26 Flush - Normal Saline IVF 10 ml PRN PRN Administration Saline Flush Tramadol HCl 50 mg 05/04/19 21:20 05/05/19 15:06 Ultram PO 50 mg Q4H PRN Administration Moderate Pain (4-6) - Exam Eye: PERRL Heart: RRR, no murmur, no gallops, no rubs Respiratory: CTAB, no wheezes, no rales, no ronchi Gastrointestinal: soft, non-tender, normal bowel sounds, distended Extremities: no cyanosis, no clubbing, no edema Hosp A/P (1) Hemorrhoids, internal, with bleeding Code(s): K64.8 - OTHER HEMORRHOIDS Status: Acute (2) Ascites Code(s): R18.8 - OTHER ASCITES Status: Acute Qualifiers: Ascites type: due to alcoholic cirrhosis Qualified Code(s): K70.31 - Alcoholic cirrhosis of liver with ascites (3) Hypomagnesemia Code(s): E83.42 - HYPOMAGNESEMIA Status: Acute - Plan * Internal Hemorrhoids- bleeding has stopped * Alcohol abuse- brief counseling * Stable for discharge home
[2019-05-07 16:01] VITALS: BP 146/87
--- NOTE | 2019-05-07 16:22 | DIS ---
DATE OF ADMISSION: 05/04/2019 DATE OF DISCHARGE: 05/07/2019 PRIMARY CARE PHYSICIAN: Through the [facility]. DISCHARGE DIAGNOSES: 1. Acute on chronic anemia secondary to internal hemorrhoids. 2. Alcoholism. 3. Cirrhosis. 4. Ascites due to cirrhosis. DISCHARGE MEDICATIONS: Include; 1. Tramadol 50 mg q.6 as needed. 2. Inderal 10 mg twice daily. 3. Multivitamin once a day. 4. Magnesium oxide 400 mg daily. 5. Folic acid 1 mg daily. 6. Doxepin 3 mg at bedtime. 7. Calcium carbonate 500 mg daily. 8. Thiamine 100 mg daily. 9. Multivitamin once a day. PROCEDURES DONE DURING ADMISSION: The patient had an ultrasound-guided paracentesis with removal of approximately 3.2 L of fluid. The fluid was negative for spontaneous bacterial peritonitis. The patient also had a CT scan of the abdomen and pelvis, in which there was cirrhotic-appearing liver with heterogeneous parenchyma and some thickening of the bowel loops, which could be due to ascites. CODE STATUS: Full code. ALLERGIES: NO KNOWN DRUG ALLERGIES. HOSPITAL COURSE: Ms. Osorio is a pleasant 54-year-old female, who presented to the emergency room with complaints of abdominal pain and rectal bleeding. The full details of which are outlined in the history and physical. She had a CT scan of the abdomen and pelvis, which did not show any new findings. She was seen by Gastroenterology during her hospital stay. She has a long history of alcoholic cirrhosis, and she had recently undergone colonoscopy due to hematochezia, which were similar symptoms that she had on this presentation. At that time, it was determined that she had internal hemorrhoids. The bleeding is thought to be due to internal hemorrhoids. Once again, she did not have any significant drop in her hemoglobin during her entire stay. Her discharge was delayed due to concerns for possible withdrawal symptoms, which were mild. The patient also underwent therapeutic paracentesis with removal of 3.2 L of fluid. There was no evidence of SBP. She was subsequently able to be discharged home with close outpatient followup. She was also counseled briefly on alcoholism and the need to get professional counseling regarding this. When this was discussed, she did not seem to be too interested and basically asked me when at what time can she have her discharge papers. She is being discharged home today in good condition. Her medications were sent to the pharmacy. The nurse had checked to see which medications she took or is taking. Her medications have not been filled since May of 2018. Job ID: [id number]
== END 2019-05-07 16:40 | disposition home or self-care (01) | DRG 433 ==
LOC: ERS 01:17 → 2NO 05:48
PROVIDERS: ADMIT Internal Medicine; ATTEND Internal Medicine
PROC: 0W9G3ZZ Drainage of Peritoneal Cavity, Percutaneous Approach (ICD-10-PCS; principal; 2019-05-05)
PROC: BW40ZZZ Ultrasonography of Abdomen (ICD-10-PCS; 2019-05-05)
DX: K70.31 Alcoholic cirrhosis of liver with ascites (principal); K76.6 Portal hypertension; F10.288 Alcohol dependence with other alcohol-induced disorder; F10.231 Alcohol dependence with withdrawal delirium; E46 Unspecified protein-calorie malnutrition; K64.8 Other hemorrhoids; I10 Essential (primary) hypertension; D69.59 Other secondary thrombocytopenia; E83.42 Hypomagnesemia; D64.9 Anemia, unspecified; E87.8 Other disorders of electrolyte and fluid balance, not elsewhere classified; E83.39 Other disorders of phosphorus metabolism; Z98.51 Tubal ligation status; Z79.899 Other long term (current) drug therapy; Z79.891 Long term (current) use of opiate analgesic; Z68.27 Body mass index [BMI] 27.0-27.9, adult
CPT/HCPCS: 36415; 36430; 49083; 74177; 80048; 80053; 82140; 82274; 83605; 83690; 83735; 84100; 84155; 84484; 85025; 85060; 85610; 86850; 86900; 86901; 87040; 87324; 87449; 89051; 93005; C9113; J0696; J2060; J2270; J2354; J2405; J3411; J3475; J3490; J7042; J7050; P9059; Q9966

== ENCOUNTER 2019-06-11 20:51 | Inpatient (IN) | payer OTHER, SELFPAY ==
[2019-06-11 22:09] LABS: Hemoglobin 8.1 g/dL (12.0-16.0); Mean Corpuscular HGB CONC 32.1 g/dL (32.0-36.0); Mean Corpuscular Hemoglobin 27.5 pg (27.0-31.0); Mean Corpuscular Volume 85.7 fL (78.0-98.0); RBC Distribution Width 17.7 % (11.5-14.5); Red Blood Cell (RBC) Count 2.94 mill/uL (4.20-5.40); White Blood Cell (WBC) Count 6.7 thou/uL (4.8-10.8)
[2019-06-11 22:13] LABS: PTT 43.8 SEC (22.9-36.1); Prothrombin Time 22.2 SEC (12.0-14.7)
[2019-06-11 22:25] LABS: Band 1 % (5-11); Eosinophils 1 % (0-10); Lymphocytes 44 % (21-51); MDiff Complete? YES; Mean Platelet Volume 8.6 fL (7.4-10.4); Monocytes 8 % (0-10); Neutrophil 46 % (42-75); Platelet Count 107 thou/uL (130-400); Platelet Morphology Comment Appears Decreased; Target Cells MODERATE= 6-15 cells (100X) (0-1/hpf)
[2019-06-11 22:26] LABS: ALT (SGPT) 22 U/L (8-55); AST (SGOT) 111 U/L (5-34); Albumin 2.9 g/dL (3.5-5.0); Alkaline Phosphatase 113 U/L (40-150); Anion Gap 13 mmol/L (10-20); BUN (Urea Nitrogen) Less than 4 mg/dL (9.8-20.1); Bilirubin, Total 2.8 mg/dL (0.2-1.2); Calc. Creatinine Clearance 0 mL/min (70-130); Carbon Dioxide 20 mmol/L (22-29); Chloride 103 mmol/L (98-107); Estimated GFR-MDRD Greater than 90; Glucose 90 mg/dL (70-105); Lipase 16 U/L (8-78); Potassium 3.4 mmol/L (3.5-5.1); Protein, Total 6.9 g/dL (6.0-8.3); Sodium 133 mmol/L (136-145)
[2019-06-11] MEDS ORDERED: Fentanyl 100 MCG/2 ML VIAL ONE (22:31)
[2019-06-11] MEDS ORDERED: Ondansetron PF 4 MG/2 ML Vial ONE (22:39)
[2019-06-12 01:20] LABS: RBC Count-Automated (BF) 821 /cumm; WBC/Nucleated-Auto (BF) 139 uL
[2019-06-12 01:23] LABS: BF Color Yellow; Body Fluid Source Paracentesis Fluid; Clarity Hazy (Clear); Tube # 1
[2019-06-12 01:32] LABS: BF Segmented Neutrophils 8 %; Cell Count Non Hematic 83 %; Lymphocytes 9 %
[2019-06-12] MEDS ORDERED: Ondansetron PF 4 MG/2 ML Vial IVP PRN (03:38)
[2019-06-12] MEDS ORDERED: Ondansetron ODT 4 MG TAB PO PRN (03:38)
[2019-06-12] MEDS ORDERED: cefTRIAXone\\ROCEPHIN 1 GM in Sodium Chloride 0.9% 100 ML IVPB SCH (05:00)
[2019-06-12] MEDS ORDERED: Diazepam 5 MG TAB PO SCH (05:00)
[2019-06-12] MEDS ORDERED: Thiamine HCl 200 MG/2 ML VIAL IM SCH (05:00)
[2019-06-12 05:02] VITALS: BMI 27.3
[2019-06-12] MEDS: traMADol HCl 50 MG TAB PO PRN ×2 (05:24→12:06)
--- NOTE | 2019-06-12 07:26 | HP ---
CODE STATUS: Full code. TIME OF EVALUATION: 3 a.m. CHIEF COMPLAINT: Abdominal pain. PRIMARY CARE DOCTOR: Not mentioned. HISTORY OF PRESENT ILLNESS: This is a 54-year-old female patient, past medical history of cirrhosis, came to the hospital after having severe abdominal distention associated with abdominal pain and inability to eat with associated nausea and vomiting, likely triggered by the increase in abdominal girth. No fever reported. Patient has a history of cirrhosis of the liver. She is an everyday drinker. She reported she came down from 15 to 8 beers a day. Patient is known to our service since she has presented with the same symptoms on a recurrent basis. The pain at present is 10/10. The symptoms started insidiously and have been gradually getting worse. REVIEW OF SYSTEMS: All systems were reviewed and negative, except for the findings mentioned above. PAST MEDICAL HISTORY: Positive for cirrhosis of the liver, esophageal varices, GERD, peptic ulcer disease, chronic rectal bleeding due to hemorrhoids, hypertension, chronic back pain, and colitis. PAST SURGICAL HISTORY: Tubal ligation, orthopedic surgery, left ankle and left foot surgeries. Surgical history of endometrial ablation, breast augmentation. PSYCHIATRIC HISTORY: Includes depression. SOCIAL HISTORY: Patient drinks everyday, reports 6 to 10 drinks per day. No drugs. No smoking history. FAMILY HISTORY: Reviewed, noncontributory to current presentation. KNOWN ALLERGIES: No known drug allergies reported. MEDICATIONS: 1. Inderal. 2. Protonix. 3. Folic acid. 4. Losartan. 5. Ativan. PHYSICAL EXAMINATION: VITAL SIGNS: On presentation, blood pressure was 133/79 with heart rate 74, respiratory rate was 18, temperature 98.6, pain was 10/10, and oxygen saturation was 97% on room air. GENERAL APPEARANCE: The patient looks ill. HEENT: Eyes, normal. ENT, moist oral mucosa. Anicteric. No JVD. RESPIRATORY: Bilateral air entry. No rales. Symmetric expansion. CARDIOVASCULAR: Normal rate, regular rhythm. No murmurs. No gallop. No edema. ABDOMEN: Soft. Normal bowel sounds. MUSCULOSKELETAL: Baseline range of motion and strength. SKIN: Intact. No pallor. No rash. No redness. Capillary refill seems to be intact. NEUROLOGIC: No evidence of any new focal weakness. Cranial nerves seem to be intact. PSYCH: Patient is in good mood. No anxiety. Optimal judgment. IMAGING: Abdomen and pelvis CT was done. CAT scan report is pending. It was reviewed by myself. Patient has breast augmentation prosthesis in on the CAT scan. Patient has ascites. Patient has irregular liver pattern, most likely due to cirrhosis. LABORATORY DATA: Reviewed. The patient has a white count 6.7, hemoglobin 8.1, MCV 85.7, and platelet count 107. Coagulation; PT 22.2, INR 2.0, and PTT 43.8. Chemistry; sodium 133, potassium 3.4, chloride 103, carbon dioxide 20, anion gap 13, BUN less than 4, creatinine 0.53, GFR is greater than 90, glucose was 90, calcium 9.0, total bilirubin 2.8, AST 111, ALT 22, alk phos 113, ammonia 25. Serum total protein 6.9, albumin 2.9, globulin 4.0, albumin to globulin ratio 0.7. Lipase 16. Body source fluid shows haziness with neutrophils of 8, rbc's 821, white count 139. ASSESSMENT AND PLAN: The patient will be placed in the hospital with following medical problems: 1. Abdominal pain. Patient has a history of cirrhosis. Patient has some fluids obtain from paracenthesis total about 3.5 lt, that have been sent to the lab for cells testings, Gram stain, and also for cultures. The cells showed that the patient has an absolute PMN of more than 250. Therefore, we are going to start patient on Rocephin. Cultures are pending. Dr. Mcgowan is being consulted. We will follow recommendations. 2. Chronic alcohol abuse. The patient has a hard time quitting alcohol abuse. She is reporting that she has around eight beers on a daily basis. We are going to start the patient on ASE protocol and then monitor closely. She reported she has been gone into delirium tremens in the past. She is willing to have some help, but she does not look ready to completely quit drinking alcohol at this point. 3. Chronic normocytic anemia, seems to be anemia of chronic disease. Hemoglobin has been stable when compared with previous values. We will monitor and treat accordingly. 4. Thrombocytopenia. This is likely secondary to underlying liver disease. At this point, platelets are much more better than previous admissions. In April, platelets were around 47. 5. Auto-anticoagulation secondary to liver disease. The patient has INR of 2.0. There is no bleeding at this point. Continue to monitor. If there is any bleeding, it will be corrected. 6. Hyponatremia. Sodium 133, this is likely secondary to underlying liver disease. This is mild. We will monitor. We will treat accordingly. 7. Hypokalemia. Potassium 3.4. We will replace electrolytes as needed. 8. History of esophageal varices. There is no evidence of any bleeding at this point. We will continue to monitor and treat accordingly. 9. History of hypertension. This is chronic, seems to be stable. We will monitor and treat accordingly. 10. Deep venous thrombosis prophylaxis. Patient is also anticoagulated with INR more than 1.5. No need for anticoagulation for deep venous thrombosis prophylaxis. Job ID: [id number] MTDD
--- NOTE | 2019-06-12 08:36 | CT ---
PRELIMINARY REPORT/[facility]/EMERGENCY AFTER HOURS PROCEDURE: EXAM: CT Abdomen and Pelvis With Contrast EXAM DATE/TIME: 06/12/2019 1:58 AM CLINICAL HISTORY: 54 years old, female; Acute; Patient HX: 54f with HX of cirrhosis reports to the ED with C/O abdomina l pain and distention. PT reports this has been going on for the last 5-6 weeks. PT states she has no t followed up with anyone regarding this problem. PT does still currently drink and has had approx. 8 beers today. PT also reports that swelling and distention is so bad that she is SOB with ab dominal pain. TECHNIQUE: Imaging protocol: Computed tomography of the abdomen and pelvis with intravenous contrast. COMPARISON: CT Abdomen Pelvis W Con 05/04/2019 2:38 AM FINDINGS: Lower chest: Right basilar atelectasis. Mild cardiomegaly. Small hiatal hernia. Liver: Cirrhotic liver. Redemonstration of heterogeneous liver parenchyma; underlying masses not excluded. Gallbladder and bile ducts: Possible mild gallbladder wall thickening/edema. No calcified stones. No ductal dilation. Pancreas: No acute findings. No mass. No ductal dilation. Spleen: Mild splenomegaly. Adrenals: No acute findings. No mass. Kidneys and ureters: No acute findings. No mass. No hydronephrosis. Stomach and bowel: Colonic wall thickening could relate to colitis, edema/portal hypertension. Focal round hyperdensity within the distal ileum and somewhat tubular densities within the ascending colon could relate to ingested material/foreign bodies. Appendix: No evidence of appendicitis. Intraperitoneal space: Ascites within the abdomen and pelvis extending to the subdiaphragmatic region s. Vasculature: No abdominal aortic aneurysm. Lymph nodes: No significant lymphadenopathy. Bladder: Distended. Reproductive: No acute findings. Bones/joints: Redemonstration of T12 and T11 spinal compression deformities. Soft tissues: Bilateral breast implants. IMPRESSION: Colonic wall thickening/colitis. Focal hyperdensities within the distal ileum and ascending colon cou ld relate to ingested material/foreign bodies. Cirrhotic liver. Redemonstration of heterogeneous liver parenchyma as described above. Ascites. Other findings above. Thank you for allowing us to participate in the care of your patient. Dictated and Authenticated by: Cayden Peters MD 06/12/2019 3:13 AM Central Time ([place] & [place]) FINAL REPORT CT ABDOMEN AND PELVIS WITH CONTRAST: COMPARISON: 05/04/2019 FINDINGS: I agree with the findings and impression given in the preliminary report per [facility] physician. IMPRESSION: 1. Moderate ascites. 2. Heterogeneous enhancement of the liver. 3. There is apparent thickening of the wall of the colon but this is likely secondary to its decompr essed state. POS: DAMON
[2019-06-12] MEDS ORDERED: Enoxaparin Sodium 40 MG/0.4 ML SYRINGE SC SCH (09:00)
[2019-06-12] MEDS: Diazepam 5 MG TAB PO PRN ×3 (09:31→18:07)
[2019-06-12] MEDS: Diazepam 5 MG TAB PO SCH ×3 (09:31→21:53)
[2019-06-12] MEDS: Multivitamin W/ Minerals 1 TAB PO SCH (10:04)
[2019-06-12] MEDS: Folic Acid 1 MG TAB PO SCH (10:04)
[2019-06-12] MEDS ORDERED: ISOVUE-370 76%-LOCM 1 ML ONE (16:36)
[2019-06-12] MEDS: Pantoprazole 40 MG VIAL IVP SCH (21:53)
[2019-06-13] MEDS: Diazepam 5 MG TAB PO PRN (02:06)
[2019-06-13] MEDS ORDERED: Diazepam 5 MG TAB PO PRN (04:00)
[2019-06-13 05:34] LABS: #Eosinphils 0.1 thou/uL (0.0-0.7); #Lymphocytes 1.2 thou/uL (1.20-3.40); #Monocytes 0.6 thou/uL (0.11-0.59); #Neutrophils 2.4 thou/uL (1.40-6.50); %Eosinophils 2.9 % (0.0-10.0); %Lymphocytes 27.4 % (21.0-51.0); %Monocytes 14.7 % (0.0-10.0); %Neutrophils 54.1 % (42.0-75.0); Mean Corpuscular HGB CONC 31.1 g/dL (32.0-36.0); Mean Corpuscular Hemoglobin 27.2 pg (27.0-31.0); Mean Corpuscular Volume 87.6 fL (78.0-98.0); Platelet Count 64 thou/uL (130-400); RBC Distribution Width 17.9 % (11.5-14.5); Red Blood Cell (RBC) Count 2.93 mill/uL (4.20-5.40); White Blood Cell (WBC) Count 4.4 thou/uL (4.8-10.8)
[2019-06-13 05:47] LABS: Anion Gap 14 mmol/L (10-20); BUN (Urea Nitrogen) Less than 4 mg/dL (9.8-20.1); Calc. Creatinine Clearance 148 mL/min (70-130); Calcium 8.3 mg/dL (7.8-10.44); Carbon Dioxide 21 mmol/L (22-29); Chloride 105 mmol/L (98-107); Estimated GFR-MDRD Greater than 90; Glucose 65 mg/dL (70-105); Potassium 4.1 mmol/L (3.5-5.1); Sodium 136 mmol/L (136-145)
--- NOTE | 2019-06-13 09:03 | CON ---
DATE OF CONSULTATION: REASON FOR CONSULTATION: Cirrhosis and ascites. HISTORY OF PRESENT ILLNESS: Ms. Osorio is well known to our GI service over the past several years. She has been in the hospital about once a month for complications related to alcohol abuse whether it would be hematemesis or ascites. She was last discharged on 05/07 and came back to the emergency room on 06/12 with complaints of abdominal pain and distention. She continues to drink, she reported 8 beers per day. She had no nausea or vomiting at this admission. She had stable vital signs. She had a CAT scan in the emergency room that showed a cirrhotic liver. No gallstones. No ductal dilatation. No masses. Some possible colon wall thickening and some moderate ascites. Today, she states her abdomen is more sore than it had been on previous admissions. She did have a paracentesis, it seems on 06/11/2019 that showed a white blood cell count of 139, blood of 821. There were 8% segs. Does not seem there was a culture sent on that. She was admitted to the hospital and placed on antibiotics empirically for possible SBP. Now, she asks for a little bit of Toradol since her stomach still hurts. REVIEW OF SYSTEMS: Negative for hematemesis, melena, or hematochezia. Negative for fever or chills. PAST MEDICAL HISTORY: Positive for cirrhosis of liver, grade 1 varices, never bleeding in the past and recurrent Snehal-Crews tears from repetitive retching from alcohol abuse, rectal bleeding from hemorrhoids in the past, hypertension, chronic back pain. PAST SURGICAL HISTORY: Tubal ligation, orthopedic surgery, left ankle and left foot surgeries, endometrial ablation, breast augmentation. SOCIAL HISTORY: The patient drinks alcohol daily. She denies drugs. Denies smoking. FAMILY HISTORY: Noncontributory. MEDICATIONS: At home; 1. Inderal. 2. Protonix. 3. Folic acid. 4. Losartan. 5. Ativan. It is unclear what should be she is to take. She is not sure which she takes. Present medications; 1. Rocephin. 2. P.r.n. Valium. 3. Multivitamin. 4. Thiamine. 5. Folate. 6. Zofran. 7. Tramadol. PHYSICAL EXAMINATION: VITAL SIGNS: Temperature 98, pulse 84, blood pressure 118/82. HEENT: She is mildly icteric. Oropharynx without lesions. NECK: Supple without any adenopathy. LUNGS: Clear. HEART: Regular rate and rhythm without clicks or murmurs. ABDOMEN: Protuberant with shifting dullness and fluid. There is no palpable hepatosplenomegaly. EXTREMITIES: Reveal trace edema. She has no asterixis. She is not tremulous. LABORATORY DATA: In addition to the HPI, her white count is 6.3 , hemoglobin 8.1, which is under baseline, platelet count 107. INR 2. Sodium 133, potassium 3.4, BUN and creatinine 4 and 0.5. Bilirubin 2.8, AST 111, ALT 22, protein 6.9, albumin 2.9. Ammonia was checked and was 25. Lipase was 16. ASSESSMENT: 1. Alcohol abuse. The ER staff has stopped getting alcohol levels on her when she comes in. We have made attempts to contact her family and talk to her excessively about her risk of , she has not stopped. 2. Thickened colon on CAT scan. She has no symptoms of colitis. This is likely related to portal hypertension. 3. Mild ascites, likely portal hypertension, previous taps have not shown spontaneous bacterial peritonitis and this tap does not show spontaneous bacterial peritonitis. If she is tapped in the future, it would be reasonable to obtain a cytology and albumin level. 4. Chronic anemia, multifactorial. RECOMMENDATIONS: 1. Alcohol abstinence. 2. Referral to social work. 3. Multivitamin, thiamine, and folate daily. 4. PPI daily. 5. I see no need to re-tap her as she does not have tense ascites. 6. She has no signs of SBP, the antibiotics can be stopped. I talked with the hospitalist about this. We will follow with you. Job ID: [id number]
[2019-06-13] MEDS: Diazepam 5 MG TAB PO SCH ×3 (09:31→20:07)
[2019-06-13] MEDS: Folic Acid 1 MG TAB PO SCH (09:31)
[2019-06-13] MEDS: Multivitamin W/ Minerals 1 TAB PO SCH (09:32)
[2019-06-13] MEDS: Magnesium Oxide 400 MG TAB PO SCH (09:32)
[2019-06-13] MEDS: Thiamine 100 MG TAB PO SCH (09:32)
[2019-06-13] MEDS: Pantoprazole 40 MG VIAL IVP SCH ×2 (09:36→20:07)
[2019-06-13] MEDS ORDERED: Spironolactone 25 MG TAB PO SCH (10:00)
--- NOTE | 2019-06-13 12:29 | PDOC.HOSPP ---
- Subjective Subjective: Seen and examined. Abdomen more distended today, starting diuretic therapy. If not improvement on diuretic therapy may need another paracentesis. Patient with abdominal pain, requesting morphine. Breathing well on room air. Patient states she hasn't been eating much. - Objective Vital Signs & Weight: Vital Signs (12 hours) Temp Pulse Resp BP Pulse Ox 06/13/19 12:00 98.5 F 94 18 140/82 96 06/13/19 08:24 97.1 F L 80 16 98/60 94 L 06/13/19 07:55 99.0 F 98 16 113/77 95 06/13/19 03:37 98.8 F 93 16 113/77 99 Weight Weight 164 lb 1 oz I&O: 06/12/19 06/13/19 06/14/19 06:59 06:59 06:59 Intake Total 1000 Balance 1000 Result Diagrams: 06/13/19 05:15 06/13/19 05:15 Hospitalist ROS - Review of Systems All other systems reviewed; all pertinent +/- noted in HPI/Subj - Medication Medications: Active Medications Generic Name Dose Route Start Last Admin Trade Name Freq PRN Reason Stop Dose Admin Diazepam 5 mg 06/12/19 09:00 06/13/19 09:31 Valium PO 5 mg TID STEPH Administration Folic Acid 1 mg 06/12/19 09:00 06/13/19 09:31 Folvite PO 1 mg DAILY STEPH Administration Iron/Minerals/Multivitamins 1 tab 06/12/19 09:00 06/13/19 09:32 Theragran M PO 1 tab DAILY STEPH Administration Lactulose 20 gm 06/13/19 09:00 06/13/19 09:35 Lactulose PO 20 gm BID STEPH Administration Magnesium Oxide 400 mg 06/13/19 09:00 06/13/19 09:32 Magnesium Oxide PO 400 mg DAILY STEPH Administration Ondansetron HCl 4 mg 06/12/19 03:38 06/12/19 13:47 Zofran IVP 4 mg Q6H PRN Administration Nausea/Vomiting Pantoprazole Sodium 40 mg 06/12/19 21:00 06/13/19 09:36 Protonix IVP 40 mg Q12HR STEPH Administration Thiamine HCl 100 mg 06/13/19 09:00 06/13/19 09:32 Thiamine PO 100 mg DAILY STEPH Administration Tramadol HCl 50 mg 06/12/19 05:15 06/12/19 12:06 Ultram PO 50 mg Q6H PRN Administration Pain - Exam General Appearance: NAD, awake alert Eye: PERRL Eye - other findings: EOMI ENT: no oropharyngeal lesions, moist mucosa Neck: supple, symmetric Heart: RRR, no murmur, no gallops, normal peripheral pulses Respiratory: CTAB, no wheezes, no rales, no ronchi, normal chest expansion Gastrointestinal: soft, no palpable masses, no guarding, no rigidity, tender to palpation, distended Extremities: no edema Skin: no lesions, no rashes Neurological: CN's grossly intact, no weakness, no focal deficits Musculoskeletal: normal strength Psychiatric: normal affect, A&O x 3 Hosp A/P (1) Alcohol dependence with withdrawal Code(s): F10.239 - ALCOHOL DEPENDENCE WITH WITHDRAWAL, UNSPECIFIED Status: Acute Qualifiers: Complication of substance-induced condition: uncomplicated Qualified Code(s ): F10.230 - Alcohol dependence with withdrawal, uncomplicated (2) Ascites Code(s): R18.8 - OTHER ASCITES Status: Acute Qualifiers: Ascites type: due to alcoholic cirrhosis Qualified Code(s): K70.31 - Alcoholic cirrhosis of liver with ascites (3) Alcoholic cirrhosis of liver Code(s): K70.30 - ALCOHOLIC CIRRHOSIS OF LIVER WITHOUT ASCITES Status: Chronic (4) Anxiety and depression Code(s): F41.9 - ANXIETY DISORDER, UNSPECIFIED; F32.9 - MAJOR DEPRESSIVE DISORDER, SINGLE EPISODE, UNSPECIFIED Status: Chronic (5) Chronic alcoholism Code(s): F10.20 - ALCOHOL DEPENDENCE, UNCOMPLICATED Status: Chronic (6) Coagulopathy Status: Chronic (7) Fibromyalgia Status: Chronic (8) Pancytopenia Code(s): D61.818 - OTHER PANCYTOPENIA Status: Chronic (9) Thrombocytopenia Code(s): D69.6 - THROMBOCYTOPENIA, UNSPECIFIED Status: Chronic - Plan Plan: GI consultation, recommendations appreciated Start Lasix, spironolactone to help with ascites If ascites not controlled on medications, it may be reasonable to preform paracentesis again before discharge - patient high risk to come back to the hospital if abdomen remains distended. She has demonstrated a pattern of non compliance Etoh abstinence Withdrawal PPX Folic acid, thiamine No bleeding, no indications for endoscopy at this time pain control edge worker consult for recourses to quit drinking GI and DVT PPX
[2019-06-13] MEDS: oxyCODONE 5 MG TAB PO PRN ×2 (14:56→20:13)
--- NOTE | 2019-06-13 16:20 | PDOC.PALCO ---
Palliative Care Consult - Consult Details Requesting Physician: Dr Sandra Reason for Consult: symptom management Family Members Present: None - Pertinent HPI Chronic alcohol abuse with history of cirrhosis, with multiple hospitalizations. Increase in abdominal pain and distention paired with nausea with intake and vomiting. Continues to drink daily. Admitted for observation, Palliative Care consult for symptom management. - Pertinent PMH Cirrhosis of the liver, espohageal varices, GERD, Peptic Ulcer disease, hemorrhoids with bleeding, hypertension, colitis. - Social History Smoking Status: Never smoker Smoking: no tobacco exposure Alcohol Use: heavy, daily Drug Use History: none [place] 77 year [place] - Medications MAR Reviewed: Yes - Allergies Allergies/Adverse Reactions: Allergies Allergy/AdvReac Type Severity Reaction Status Date / Time No Known Allergies Allergy Verified 05/04/19 20:07 - Subjective Sleeping but arousable, complains of abdominal pain that is intermittently "sharp". Gave short life review. Has attempted treatment twice, greatest length of soberity was two years. ROS: Weakness, abdominal pain, nausea, intermittent shortness of breath otherwise 10 point review negative - Objective Vital Signs: Vital Signs - Most Recent Temp Pulse Resp BP Pulse Ox 99 F 97 18 119/76 94 L 06/13/19 14:59 06/13/19 14:59 06/13/19 14:59 06/13/19 14:59 06/13/19 14:59 Palliative Performance Scale: 60 - Physical Exam Constitutional: mild distress HEENT: moist MMs, EOMI Deviation from normal: Mildly labored respirations with conversation, clear to upper lobes Cardiovascular: RRR, no significant murmur Deviation from normal: Distended, tender Neurological: moves all 4 limbs Deviation from normal: Depressed, anxious Deviation from normal: icteric - Problem List (1) Palliative care encounter Code(s): Z51.5 - ENCOUNTER FOR PALLIATIVE CARE Current Visit: Yes Status: Acute (2) Ascites Code(s): R18.8 - OTHER ASCITES Current Visit: No Status: Acute Qualifiers: Ascites type: due to alcoholic cirrhosis Qualified Code(s): K70.31 - Alcoholic cirrhosis of liver with ascites (3) Alcoholic cirrhosis of liver Code(s): K70.30 - ALCOHOLIC CIRRHOSIS OF LIVER WITHOUT ASCITES Current Visit: No Status: Chronic (4) Chronic alcoholism Code(s): F10.20 - ALCOHOL DEPENDENCE, UNCOMPLICATED Current Visit: No Status : Chronic - Plan/Recommendations Plan: Discussed total absence of alcohol as optimal solution. Extensive therapeutic listening. 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 Locating resources for non funded individuals for sober living and rehab. *Will call "[facility]" *Will provide a list of local AA meetings in the area patient lives *Add spironolactone 100mg po qd *Lasix 20 mg po bid *Valium 5 mg bid *d/c prn Valium *add Lorazepam prn Palliative Care will support and follow to discharge. [120] minutes spent on this encounter with >50% of the time in counseling and coordination of care. Thank you for this very appropriate consult.
--- NOTE | 2019-06-13 18:13 | PRG ---
DATE OF SERVICE: 06/13/2019 SUBJECTIVE: Ms. Osorio started to eat a little bit. She complains her abdomen being protuberant and uncomfortable. OBJECTIVE: VITAL SIGNS: Temperature max 99, pulse 97, blood pressure 119/76. LUNGS: Clear. HEART: Regular rhythm. ABDOMEN: Soft, nontender, slightly protuberant with shifting dullness and fluid wave, but not tensed. There is no rebound. There is no guarding. LABORATORY DATA: White count 4.4, hemoglobin 8, platelet count 64,000. Sodium 136, potassium 4.1, BUN and creatinine are 14 and less than 4.5. ASSESSMENT: 1. Alcoholic liver disease, likely cirrhosis and some acute alcoholic hepatitis. 2. Continued alcohol abuse. She states she is actually going to stop drinking alcohol at this time. 3. Slight ascites, not tensed. No indications for retapping. RECOMMENDATIONS: 1. Would not restrict her sodium in her diet. She needs all the nutrition she can get. 2. We will start low-dose Lasix and Aldactone. I think these are probably not appropriate to send her home on if she is not reliable in followup. I would worry about developing dehydration, renal insufficiency, or hepatorenal syndrome without close monitoring in the outpatient setting. Job ID: [id number]
[2019-06-13] MEDS: Lorazepam 1 MG TAB PO PRN (20:13)
[2019-06-14] MEDS: oxyCODONE 5 MG TAB PO PRN ×3 (01:04→12:04)
[2019-06-14] MEDS: traMADol HCl 50 MG TAB PO PRN ×2 (03:49→09:51)
[2019-06-14] MEDS: Lorazepam 1 MG TAB PO PRN (03:49)
[2019-06-14] MEDS ORDERED: Spironolactone 100 MG TAB PO SCH (08:00)
[2019-06-14] MEDS ORDERED: Furosemide 20 MG TAB PO SCH (09:00)
[2019-06-14] MEDS ORDERED: Furosemide 20 MG/2 ML VIAL SLOW IVP SCH (09:00)
[2019-06-14] MEDS: Thiamine 100 MG TAB PO SCH (09:08)
[2019-06-14] MEDS: Folic Acid 1 MG TAB PO SCH (09:08)
[2019-06-14] MEDS: Diazepam 5 MG TAB PO SCH (09:08)
[2019-06-14] MEDS: Magnesium Oxide 400 MG TAB PO SCH (09:08)
[2019-06-14] MEDS: Multivitamin W/ Minerals 1 TAB PO SCH (09:08)
[2019-06-14] MEDS: Pantoprazole 40 MG VIAL IVP SCH (09:51)
[2019-06-14 12:36] VITALS: TEMP 97.8
[2019-06-14 13:37] VITALS: BP 103/62
--- NOTE | 2019-06-15 02:13 | DIS ---
DATE OF ADMISSION: 06/12/2019 DATE OF DISCHARGE: 06/14/2019 REASON FOR HOSPITALIZATION: Abdominal pain and swelling. SIGNIFICANT FINDINGS: The patient was found to have acute on chronic ascites secondary to liver cirrhosis. PROCEDURES PERFORMED AND TREATMENTS RENDERED: The patient was admitted to medical unit with telemetry for close management. The patient had paracentesis performed in the emergency department, please see full operative report for details. The patient had 4 L of fluid removed. CONDITION ON DISCHARGE: Stable. SPECIFIC INSTRUCTIONS FOR THE PATIENT/FAMILY: 1. Stop alcohol completely. 2. The patient is recommended to follow up with primary care physician in the next 5 to 7 days. 3. The patient is recommended to follow up with Gastroenterology in the next 1 to 2 weeks. 4. The patient is recommended to avoid excess salt intake, to avoid further worsening of ascites. 5. The patient is recommended to discuss further with primary care physician about diuretic therapy and demonstrate that she can be compliant with taking oral medications, no diuretic therapy generated on discharge as the patient has demonstrated on several instances that she is medically noncompliant and we did not want her to develop renal failure from inappropriate use of diuretics to control her ascites. 6. The patient is recommended to take alcohol withdrawal medications as directed, I did leave a paper prescription for Valium for the patient. I strictly informed the patient that if she is to restart drinking that she must stop Valium immediately. DISCHARGE MEDICATIONS: Please see full discharge medication list for details. HOSPITAL COURSE: Ms. Osorio is a pleasant 54-year-old female who presented to [facility] on 06/12/2019. The patient is well known to the hospital and has had multiple admissions for alcoholic cirrhosis. The patient was admitted to medical unit for close management. Gastroenterology consultation was requested, please see full consultation and progress notes for details. The patient had paracentesis in which 4 L of fluid was removed from the abdomen. The patient did receive doses of diuretic therapy in the hospital setting to help with the accumulation of ascites. These medications did improve the abdominal distention and the patient is feeling better. The patient recommended safe for discharge by Gastroenterology with close followup in the outpatient setting. The patient was seen by Palliative Care to further stress the severity of her illness. The patient has been counseled by myself, Palliative Care, and Gastroenterology on the critical nature of her illness and explicitly informed that if she does not stop drinking, she will likely in the upcoming near future. The patient states that she desires sobriety and resources were given to the patient on ways to avoid further alcohol abuse. The patient recommended to follow up with primary care physician, Gastroenterology, and Palliative Care in the outpatient setting in the next 1 to 2 weeks; or return to acute care hospital immediately if unable to be seen. The patient is recommended to take all medications as directed, and explicitly informed to stop Valium if she goes back to drinking alcohol. The patient is recommended to return to acute care hospital immediately if signs or symptoms return, worsen, or any other new symptoms occur. Greater than 36 minutes spent coordinating care and discharge process for this patient. Job ID: [id number]
== END 2019-06-14 13:40 | disposition home or self-care (01) | DRG 433 ==
LOC: ERS 20:51 → OBSVTOIN 06-12 00:43 → SURG A 06-12 00:43
PROVIDERS: ADMIT Hospitalist; ATTEND Hospitalist
PROC: 0W9G3ZX Drainage of Peritoneal Cavity, Percutaneous Approach, Diagnostic (ICD-10-PCS; principal; 2019-06-12)
PROC: HZ2ZZZZ Detoxification Services for Substance Abuse Treatment (ICD-10-PCS; 2019-06-12)
DX: K70.31 Alcoholic cirrhosis of liver with ascites (principal); E87.1 Hypo-osmolality and hyponatremia; F10.230 Alcohol dependence with withdrawal, uncomplicated; F10.288 Alcohol dependence with other alcohol-induced disorder; D68.9 Coagulation defect, unspecified; D61.818 Other pancytopenia; Z51.5 Encounter for palliative care; K21.9 Gastro-esophageal reflux disease without esophagitis; I10 Essential (primary) hypertension; G89.29 Other chronic pain; F32.9 Major depressive disorder, single episode, unspecified; E87.6 Hypokalemia; F41.9 Anxiety disorder, unspecified; M79.7 Fibromyalgia; K70.11 Alcoholic hepatitis with ascites; Z98.51 Tubal ligation status
CPT/HCPCS: 36415; 74177; 80048; 80053; 82140; 83690; 85025; 85060; 85610; 85730; 89051; 93005; 96374; 96375; C9113; J0696; J2405; J3010; J3411; J3475; J3490; Q0162; Q9966

== ENCOUNTER 2019-07-08 08:54 | Emergency (ER) | payer OTHER, SELFPAY ==
[2019-07-08 09:54] LABS: #Basophils 0.1 thou/uL (0.0-0.2); #Eosinphils 0.2 thou/uL (0.0-0.7); #Lymphocytes 1.8 thou/uL (1.20-3.40); #Monocytes 0.9 thou/uL (0.11-0.59); #Neutrophils 4.5 thou/uL (1.40-6.50); %Basophils 1.1 % (0.0-1.0); %Eosinophils 2.8 % (0.0-10.0); %Lymphocytes 24.1 % (21.0-51.0); %Monocytes 11.3 % (0.0-10.0); %Neutrophils 60.7 % (42.0-75.0); Hemoglobin 9.9 g/dL (12.0-16.0); Mean Corpuscular HGB CONC 31.2 g/dL (32.0-36.0); Mean Corpuscular Hemoglobin 27.3 pg (27.0-31.0); Mean Corpuscular Volume 87.7 fL (78.0-98.0); Platelet Count 163 thou/uL (130-400); RBC Distribution Width 19.3 % (11.5-14.5); Red Blood Cell (RBC) Count 3.63 mill/uL (4.20-5.40); White Blood Cell (WBC) Count 7.5 thou/uL (4.8-10.8)
[2019-07-08 10:14] LABS: ALT (SGPT) 22 U/L (8-55); AST (SGOT) 82 U/L (5-34); Albumin 2.9 g/dL (3.5-5.0); Alkaline Phosphatase 143 U/L (40-110); Anion Gap 15 mmol/L (10-20); BUN (Urea Nitrogen) 4 mg/dL (9.8-20.1); Bilirubin, Total 4.4 mg/dL (0.2-1.2); Calc. Creatinine Clearance 0 mL/min (70-130); Calcium 8.7 mg/dL (7.8-10.44); Carbon Dioxide 18 mmol/L (22-29); Chloride 106 mmol/L (98-107); Estimated GFR-MDRD Greater than 90; Globulin 5.3 g/dL (2.4-3.5); Glucose 106 mg/dL (70-105); Lipase 14 U/L (8-78); Potassium 3.4 mmol/L (3.5-5.1); Protein, Total 8.2 g/dL (6.0-8.3); Sodium 136 mmol/L (136-145)
[2019-07-08] MEDS ORDERED: Acetaminophen 500 MG TAB ONE ×2 (11:22→11:24)
== END 2019-07-08 11:25 | disposition home or self-care (01) ==
LOC: ERS 08:54
DX: R18.8 Other ascites (principal); F32.9 Major depressive disorder, single episode, unspecified; I10 Essential (primary) hypertension; Z79.899 Other long term (current) drug therapy
CPT/HCPCS: 80053; 83690; 85025; 99284

== ENCOUNTER 2019-07-08 12:09 | Day surgery (SDC) | payer OTHER ==
[2019-07-05 10:34] VITALS: BMI 27.1
[2019-07-08 12:50] LABS: INR-International Normal Ratio 2.3; Prothrombin Time 25.5 SEC (12.0-14.7)
--- NOTE | 2019-07-08 13:51 | ULT ---
Ultrasound-guided paracentesis: HISTORY: Recurrent ascites FINDINGS: Informed consent obtained prior to the procedure. Preprocedural imaging demonstrated signif icant ascites throughout the abdomen and pelvis. Right lower quadrant prepped and draped in normal sterile fashion and anesthetized with 1% buffered l idocaine. With direct sonographic guidance, 5 Jamaican Yueh catheter is advanced into the ascites and removal of the stylet yielded yellow fluid. 5 L were removed. The patient tolerated the procedure well. No postprocedural complications. IMPRESSION: Successful ultrasound-guided paracentesis yielding 5 L of yellow ascites.
[2019-07-08 14:01] VITALS: BP 110/72; TEMP 98.1
== END 2019-07-08 14:15 | disposition home or self-care (01) ==
LOC: ULT 12:09
PROVIDERS: ATTEND Nurse Practitioner Family
PROC: BW40ZZZ Ultrasonography of Abdomen (ICD-10-PCS; principal; 2019-07-08)
PROC: 0W9G3ZZ Drainage of Peritoneal Cavity, Percutaneous Approach (ICD-10-PCS; principal; 2019-07-08)
DX: K74.60 Unspecified cirrhosis of liver (principal); R18.8 Other ascites; K76.7 Hepatorenal syndrome; I10 Essential (primary) hypertension; F41.9 Anxiety disorder, unspecified; F32.9 Major depressive disorder, single episode, unspecified; G89.29 Other chronic pain; M54.9 Dorsalgia, unspecified; D64.9 Anemia, unspecified; Z79.899 Other long term (current) drug therapy
CPT/HCPCS: 36415; 49083; 85610; 85730

== ENCOUNTER 2019-07-18 16:15 | Emergency (ER) | payer OTHER ==
[2019-07-18 17:43] LABS: Hemoglobin 8.1 g/dL (12.0-16.0); Mean Corpuscular HGB CONC 31.6 g/dL (32.0-36.0); Mean Corpuscular Hemoglobin 27.8 pg (27.0-31.0); Mean Corpuscular Volume 88.1 fL (78.0-98.0); RBC Distribution Width 19.5 % (11.5-14.5); White Blood Cell (WBC) Count 5.5 thou/uL (4.8-10.8)
[2019-07-18 18:05] LABS: Anisocytosis SLIGHT = 6-15 cells (100X) (0-5/hpf); Band 1 % (5-11); Eosinophils 3 % (0-10); Hypochromia SLIGHT = 6-15 cells (100X) (0-5/hpf); Lymphocytes 33 % (21-51); MDiff Complete? YES; Mean Platelet Volume 9.4 fL (7.4-10.4); Monocytes 17 % (0-10); Neutrophil 46 % (42-75); Platelet Count 114 thou/uL (130-400); Platelet Morphology Comment Appears Decreased; Target Cells SLIGHT = 2-5 cells (100X) (0-1/hpf)
[2019-07-18 18:11] LABS: ALT (SGPT) 16 U/L (8-55); AST (SGOT) 55 U/L (5-34); Albumin 2.3 g/dL (3.5-5.0); Alkaline Phosphatase 125 U/L (40-110); Anion Gap 7 mmol/L (10-20); BUN (Urea Nitrogen) 4 mg/dL (9.8-20.1); Bilirubin, Total 3.1 mg/dL (0.2-1.2); Calc. Creatinine Clearance 0 mL/min (70-130); Calcium 7.8 mg/dL (7.8-10.44); Carbon Dioxide 24 mmol/L (22-29); Chloride 104 mmol/L (98-107); Estimated GFR-MDRD 87; Globulin 4.2 g/dL (2.4-3.5); Glucose 97 mg/dL (70-105); Lipase 19 U/L (8-78); Potassium 3.2 mmol/L (3.5-5.1); Protein, Total 6.5 g/dL (6.0-8.3); Sodium 132 mmol/L (136-145)
[2019-07-18 18:14] LABS: CK (CPK) 30 U/L (29-168)
[2019-07-18 18:40] LABS: BF Color Yellow; Body Fluid Source Peritoneal Fluid; Clarity Hazy (Clear); Tube # 1
[2019-07-18 18:41] LABS: BF RBC Count - Manual 450 /cumm; BF WBC/Nonhematics Ct. - Manua 100 /cumm
[2019-07-18 19:15] LABS: BF Segmented Neutrophils 4 %; Cell Count Non Hematic 76 %; Lymphocytes 20 %
== END 2019-07-18 20:16 | disposition home or self-care (01) ==
LOC: ERS 16:15
DX: K74.60 Unspecified cirrhosis of liver (principal); I10 Essential (primary) hypertension; K21.9 Gastro-esophageal reflux disease without esophagitis; F32.9 Major depressive disorder, single episode, unspecified; Z79.899 Other long term (current) drug therapy; Z87.11 Personal history of peptic ulcer disease
CPT/HCPCS: 36415; 49082; 80053; 82550; 83690; 85025; 85060; 87070; 87205; 89051

== ENCOUNTER 2019-07-24 16:18 | Emergency (ER) | payer OTHER ==
[2019-07-24 17:27] LABS: Hemoglobin 8.8 g/dL (12.0-16.0); Mean Corpuscular HGB CONC 32.3 g/dL (32.0-36.0); Mean Corpuscular Hemoglobin 28.4 pg (27.0-31.0); RBC Distribution Width 23.5 % (11.5-14.5); Red Blood Cell (RBC) Count 3.11 mill/uL (4.20-5.40)
[2019-07-24 17:33] LABS: PTT 34.2 SEC (22.9-36.1); Prothrombin Time 22.7 SEC (12.0-14.7)
[2019-07-24] MEDS ORDERED: Morphine 4 MG/ML VIAL ONE (17:35)
[2019-07-24 17:48] LABS: Anisocytosis SLIGHT = 6-15 cells (100X) (0-5/hpf); Band 1 % (5-11); Hypochromia SLIGHT = 6-15 cells (100X) (0-5/hpf); Lymphocytes 30 % (21-51); MDiff Complete? YES; Monocytes 9 % (0-10); Neutrophil 60 % (42-75); Platelet Count 80 thou/uL (130-400); Platelet Morphology Comment Appears Decreased; Poikilocytosis SLIGHT = 6-15 cells (100X) (0-5/hpf); Polychromasia SLIGHT = 2-3 cells (100X) (0-2/hpf); Target Cells SLIGHT = 2-5 cells (100X) (0-1/hpf)
[2019-07-24 18:04] LABS: ALT (SGPT) 16 U/L (8-55); AST (SGOT) 57 U/L (5-34); Albumin 2.2 g/dL (3.5-5.0); Alkaline Phosphatase 156 U/L (40-110); Anion Gap 10 mmol/L (10-20); BUN (Urea Nitrogen) 8 mg/dL (9.8-20.1); Bilirubin, Total 2.7 mg/dL (0.2-1.2); Calc. Creatinine Clearance 0 mL/min (70-130); Carbon Dioxide 21 mmol/L (22-29); Chloride 106 mmol/L (98-107); Estimated GFR-MDRD Greater than 90; Globulin 4.5 g/dL (2.4-3.5); Glucose 88 mg/dL (70-105); Lipase 31 U/L (8-78); Potassium 3.2 mmol/L (3.5-5.1); Protein, Total 6.7 g/dL (6.0-8.3); Sodium 134 mmol/L (136-145)
[2019-07-24] MEDS ORDERED: Potassium Chloride 20 MEQ TAB ONE ×2 (18:19)
--- NOTE | 2019-07-27 14:05 | EKG ---
Test Reason : Blood Pressure : / mmHG Vent. Rate : 075 BPM Atrial Rate : 075 BPM P-R Int : 000 ms QRS Dur : 082 ms QT Int : 424 ms P-R-T Axes : 000 015 010 degrees QTc Int : 473 ms Accelerated Junctional rhythm Cannot rule out Anterior infarct , age undetermined Abnormal ECG Confirmed by SHASTA MARTINEZ ([id number]), editor sound SHEFALI RICO ([id number]) on 07/27/2019 2:05:10 PM Referred By: Confirmed By:SHASTA MARTINEZ
== END 2019-07-24 20:00 | disposition home or self-care (01) ==
LOC: ERS 16:18
DX: E87.6 Hypokalemia (principal); R18.8 Other ascites; F32.9 Major depressive disorder, single episode, unspecified; K21.9 Gastro-esophageal reflux disease without esophagitis; I10 Essential (primary) hypertension; Z79.899 Other long term (current) drug therapy
CPT/HCPCS: 36415; 80053; 82140; 83690; 84484; 85025; 85610; 85730; 93005; 96374; J2270

== ENCOUNTER 2019-07-26 09:19 | Day surgery (SDC) | payer OTHER ==
[2019-07-25 15:04] VITALS: BMI 27.4
[2019-07-26] MEDS ORDERED: Sodium Bicarbonate 2.5 MEQ/5 ML VIAL ONE (11:02)
--- NOTE | 2019-07-26 13:32 | ULT ---
Ultrasound-guided paracentesis: 07/26/2019 HISTORY: Symptomatic ascites FINDINGS: Informed consent obtained prior to the procedure. Preprocedural imaging demonstrated signif icant ascites throughout the abdomen and pelvis. Right lower quadrant prepped and draped in normal sterile fashion and anesthetized with 1% buffered l idocaine. With direct sonographic guidance, 5 Greek Yueh catheter is advanced into the ascites and removal of the stylet yielded yellow fluid. 5 L were removed. The patient tolerated the procedure well. No postprocedural complications. IMPRESSION: Successful ultrasound-guided paracentesis yielding 5 L of yellow fluid.
[2019-07-26 13:42] VITALS: BP 109/61; TEMP 98.2
== END 2019-07-26 12:15 | disposition home or self-care (01) ==
LOC: ULT 09:19
PROVIDERS: ATTEND Nurse Practitioner Family
PROC: 0W9G3ZZ Drainage of Peritoneal Cavity, Percutaneous Approach (ICD-10-PCS; principal; 2019-07-26)
PROC: BW40ZZZ Ultrasonography of Abdomen (ICD-10-PCS; principal; 2019-07-26)
DX: R18.8 Other ascites (principal)
CPT/HCPCS: 49083

== ENCOUNTER 2019-07-31 12:14 | Day surgery (SDC) | payer OTHER ==
[2019-07-31 12:50] VITALS: BP 117/69; TEMP 98.7
[2019-07-31] MEDS ORDERED: FLU VACC QS2019-20(6MOS UP)/PF 60 MCG/0.5 ML SYRINGE IM ONE (13:00)
--- NOTE | 2019-07-31 14:19 | ULT ---
Ultrasound-guided paracentesis: HISTORY: Symptomatic ascites FINDINGS: Informed consent obtained prior to the procedure. Preprocedural imaging demonstrated signif icant ascites throughout the abdomen and pelvis. Right lower quadrant prepped and draped in normal sterile fashion and anesthetized with 1% buffered lidocaine. With direct sonographic guidance, 5 Ukrainian Yueh catheter is advanced into the ascites and removal of the stylet yielded yellow fluid. 4.35 L were removed. The patient tolerated the procedure well. No postprocedural complications. IMPRESSION: Successful ultrasound-guided paracentesis yielding 4.35 L of yellow ascites.
== END 2019-07-31 13:55 | disposition home or self-care (01) ==
LOC: ULT 12:14
PROVIDERS: ATTEND Nurse Practitioner Family
PROC: 0W9G3ZZ Drainage of Peritoneal Cavity, Percutaneous Approach (ICD-10-PCS; principal; 2019-07-31)
DX: K74.60 Unspecified cirrhosis of liver (principal); R18.8 Other ascites; F10.20 Alcohol dependence, uncomplicated; I10 Essential (primary) hypertension; J45.909 Unspecified asthma, uncomplicated; F41.9 Anxiety disorder, unspecified; F32.9 Major depressive disorder, single episode, unspecified; K21.9 Gastro-esophageal reflux disease without esophagitis; K76.7 Hepatorenal syndrome; G89.29 Other chronic pain; M54.9 Dorsalgia, unspecified; G62.9 Polyneuropathy, unspecified; G47.00 Insomnia, unspecified; Z79.899 Other long term (current) drug therapy
CPT/HCPCS: 49083; 90471; 90686; G0008

== ENCOUNTER 2019-08-06 16:13 | Observation (INO) | payer OTHER ==
[2019-08-06 16:45] LABS: #Basophils 0.1 thou/uL (0.0-0.2); #Eosinphils 0.3 thou/uL (0.0-0.7); #Lymphocytes 2.5 thou/uL (1.20-3.40); #Monocytes 0.9 thou/uL (0.11-0.59); #Neutrophils 2.9 thou/uL (1.40-6.50); %Basophils 0.8 % (0.0-1.0); %Eosinophils 4.3 % (0.0-10.0); %Lymphocytes 37.8 % (21.0-51.0); %Monocytes 13.5 % (0.0-10.0); %Neutrophils 43.6 % (42.0-75.0); Hemoglobin 9.7 g/dL (12.0-16.0); Mean Corpuscular HGB CONC 32.4 g/dL (32.0-36.0); Mean Corpuscular Hemoglobin 28.5 pg (27.0-31.0); Mean Corpuscular Volume 87.8 fL (78.0-98.0); Mean Platelet Volume 9.5 fL (7.4-10.4); Platelet Count 153 thou/uL (130-400); RBC Distribution Width 18.7 % (11.5-14.5); Red Blood Cell (RBC) Count 3.39 mill/uL (4.20-5.40); White Blood Cell (WBC) Count 6.7 thou/uL (4.8-10.8)
[2019-08-06 17:10] LABS: ALT (SGPT) 20 U/L (8-55); AST (SGOT) 91 U/L (5-34); Albumin 2.5 g/dL (3.5-5.0); Alkaline Phosphatase 140 U/L (40-110); Anion Gap 15 mmol/L (10-20); BUN (Urea Nitrogen) 7 mg/dL (9.8-20.1); Bilirubin, Total 4.9 mg/dL (0.2-1.2); Calc. Creatinine Clearance 0 mL/min (70-130); Calcium 8.2 mg/dL (7.8-10.44); Carbon Dioxide 16 mmol/L (22-29); Chloride 102 mmol/L (98-107); Estimated GFR-MDRD 84; Globulin 5.3 g/dL (2.4-3.5); Glucose 87 mg/dL (70-105); Lipase 8 U/L (8-78); Potassium 5.7 mmol/L (3.5-5.1); Protein, Total 7.8 g/dL (6.0-8.3); Sodium 127 mmol/L (136-145)
[2019-08-06] MEDS ORDERED: Lidocaine 1% w/Epinephrine 1:100K 20 ML VIAL ONE (17:56)
[2019-08-06] MEDS ORDERED: Lidocaine 1% PF 5 ML VIAL ONE (17:56)
[2019-08-06 18:02] LABS: Clarity CLOUDY (Clear)
[2019-08-06 18:03] LABS: Leukocyte Moderate (Negative); Nitrite Negative (Negative); Protein, Urine (Dipstick) 50 mg/dL (Neg-Trace)
[2019-08-06 18:04] LABS: Bilirubin Negative (Negative); Blood, Urine Moderate (Negative); Glucose, Urine (Dipstick) Negative (Negative); Other Microscopic Description Less than 2 mL rec'd; Urobilinogen 0.2 mg/dL (Less than 2)
[2019-08-06] MEDS ORDERED: Morphine 4 MG/ML VIAL ONE (18:09)
[2019-08-06] MEDS ORDERED: Ondansetron PF 4 MG/2 ML Vial SLOW IVP SCH (18:45)
[2019-08-06] MEDS ORDERED: Ondansetron PF 4 MG/2 ML Vial ONE (19:12)
[2019-08-06 19:16] LABS: INR-International Normal Ratio 2.1; PTT 41.6 SEC (22.9-36.1); Prothrombin Time 23.2 SEC (12.0-14.7)
[2019-08-06] MEDS ORDERED: Albumin 25% 25 GM/100 ML BOT IVPB SCH (19:30)
[2019-08-06 19:37] LABS: RBC Count-Automated (BF) 95 /cumm; WBC/Nucleated-Auto (BF) 86 uL
[2019-08-06 19:51] LABS: Body Fluid Source Peritoneal Fluid; Clarity Hazy (Clear); Tube # 1
[2019-08-06 19:52] LABS: BF Color Yellow
[2019-08-06 19:54] LABS: BF Segmented Neutrophils 11 %; Cell Count Non Hematic 65 %; Eosinophils 1 %; Lymphocytes 23 %
[2019-08-06] MEDS ORDERED: Ondansetron PF 4 MG/2 ML Vial IVP PRN (23:05)
[2019-08-06] MEDS ORDERED: HYDROcodone/Acetaminophen 5/325 mg Tablet PO PRN ×2 (23:05)
[2019-08-06] MEDS ORDERED: Acetaminophen 325 MG TAB PO PRN (23:05)
[2019-08-06] MEDS ORDERED: Ondansetron ODT 4 MG TAB SL PRN (23:05)
[2019-08-07] MEDS ORDERED: Ondansetron PF 4 MG/2 ML Vial IVP PRN (01:08)
[2019-08-07] MEDS ORDERED: Acetaminophen 500 MG TAB PO PRN (01:08)
[2019-08-07] MEDS ORDERED: Ondansetron ODT 4 MG TAB PO PRN (01:08)
[2019-08-07] MEDS ORDERED: traMADol HCl 50 MG TAB PO PRN ×2 (01:08→01:37)
[2019-08-07] MEDS: Temazepam 15 MG CAP PO PRN ×2 (01:54→22:02)
[2019-08-07] MEDS: cefTRIAXone\\ROCEPHIN 1 GM in Sodium Chloride 0.9% 100 ML IVPB SCH (01:54)
--- NOTE | 2019-08-07 02:16 | HP ---
PRIMARY CARE PHYSICIAN: AARON Zambrano PRIMARY INTERIOR DESIGN PROFESSOR: Dr. Stewart. CHIEF COMPLAINT: Abdominal pain and distention. HISTORY OF PRESENT ILLNESS: This is a 54-year-old female with a significant history of advanced hepatic cirrhosis with abdominal ascites, presenting with distention, decreased urine output, abdominal pain, and difficulty breathing. The patient states she has been treated on a weekly basis with therapeutic paracentesis over the last 4 months. The patient states prior to 4 months, she was doing well with normal activities when she suddenly developed ascites that became manageable only with regular paracentesis. The patient states her last alcohol intake was approximately 3 to 4 months prior to this evaluation. The patient states her activities are limited due to the swelling of her abdomen and the need for weekly paracentesis. The patient denied any specific fever, chills, travel history, or family members with similar symptoms. The patient denies any specific nausea, or vomiting, but did admit to decreased urine output as well as decreased oral intake with her last meal 48 hours prior to this evaluation. The patient does state that she drinks up to 6 to 8 bottles of water daily. In the emergency room, the patient underwent general evaluation, undergoing paracentesis with removal of approximately 5-1/2 L of ascites. The patient received albumin in addition to Zofran and morphine sulfate. The patient was transferred to the medical floor for further evaluation. PAST MEDICAL HISTORY: 1. Hepatic cirrhosis with recurrent ascites. 2. Alcohol abuse. Last drink 3 to 4 months prior to this evaluation. 3. Gastroesophageal reflux disease. 4. Hypertension. 5. Chronic back pain. 6. Chronic rectal bleeding. 7. Chronic anemia secondary to end-stage liver disease. PAST SURGICAL HISTORY: 1. Status post endometrial ablation. 2. Status post bilateral breast augmentation. 3. Status post bilateral tubal ligation. 4. Status post left ankle and foot repair. 5. Paracentesis, multiple. CURRENT MEDICATIONS: 1. Protonix 40 mg one tablet p.o. daily. 2. Folic acid 1 mg p.o. daily. 3. Temazepam 15 mg p.o. at bedtime. 4. Ultram 50 mg 1 to 2 tablets p.o. q.6 hours p.r.n. pain. 5. Calcium carbonate 500 mg p.o. daily. 6. Vitamin D3 1000 units p.o. daily. 7. Lactulose 22.5 mL p.o. b.i.d. 8. Magnesium oxide 500 mg p.o. daily. 9. [place]-3 fatty acids 1 capsule p.o. daily. 10. Zofran 4 to 8 mg p.o. q.6 hours p.r.n. 11. Thiamine 100 mg p.o. daily. ALLERGIES: NO KNOWN DRUG ALLERGIES. FAMILY HISTORY: No inheritable diseases per patient report. SOCIAL HISTORY: The patient resides in [place], [place]. 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 No tobacco use. Last alcohol intake approximately 3 months prior to this evaluation. The patient admitted to 10+ beers daily. No illicit drugs. REVIEW OF SYSTEMS: CONSTITUTIONAL: Negative for weight loss or gain, ability to conduct usual activities. SKIN: Negative for rash, itching. EYES: Negative for double vision, pain. ENT/MOUTH: Negative for nose bleeding, neck stiffness, pain, tenderness. CARDIOVASCULAR: Negative for palpitations, dyspnea on exertion, orthopnea. RESPIRATORY: Negative for shortness of breath, wheezing, cough, hemoptysis, fever or night sweats. GASTROINTESTINAL: Negative for poor appetite, abdominal pain, heartburn, nausea, vomiting, constipation, or diarrhea. GENITOURINARY: Negative for urgency, frequency, dysuria, nocturia. MUSCULOSKELETAL: Negative for pain, swelling. NEUROLOGIC/PSYCHIATRIC: Negative for anxiety, depression. ALLERGY/IMMUNOLOGIC: Negative for skin rash, bleeding tendency. Otherwise negative except as stated per HPI. PHYSICAL EXAMINATION: VITAL SIGNS: On admission, blood pressure 97/60, pulse 102, respiratory rate 20, temperature 97.7 degrees Fahrenheit, O2 saturation 100% on room air. GENERAL APPEARANCE: This is a 54-year-old female, alert and oriented x3, pleasant, responsive, in no acute distress. HEENT: Pupils are equal, round, reactive to light and accommodation. Extraocular muscles are intact. Bilateral scleral icterus noted. Nares patent. OP is clear. Teeth in fair repair. NECK: Supple. No cervical adenopathy. No thyromegaly. No carotid bruits. No JVD appreciated. Cervical spine with full active and passive range of motion. No meningeal signs noted. CHEST: Lungs are clear to auscultation bilaterally CARDIOVASCULAR: S1 and S2 without noted murmur, rub, or gallop. ABDOMEN: Distended with positive fluid wave. No palpable mass. No rebound or guarding appreciated. Mild tenderness to palpation in suprapubic region. EXTREMITIES: Warm, dry with fair turgor. No clubbing, cyanosis, or asymmetric edema appreciated. Pulses palpable distally at the dorsalis pedis, posterior tibial, and popliteal arteries bilaterally. Capillary refill less than 2 seconds. NEUROLOGIC: Cranial nerves 2 through 12 are grossly intact. No focal or lateralizing signs appreciated. PERTINENT LABORATORY DATA AND X-RAY FINDINGS: Sodium 127, potassium 5.7, chloride 102, CO2 of 16, BUN 7, creatinine 0.72, estimated GFR of 84, glucose 87, calcium 8.2, total bilirubin 4.9, AST 91, ALT of 20, alkaline phosphatase 140, albumin 2.5, lipase 8. CBC showed a white blood cell count of 6.7, hemoglobin 9.7, hematocrit 30, platelet count 153 with normal differential. PT 23.2, INR 2.1, PTT 41.6. Urinalysis positive for protein, moderate blood and leukocyte esterase. Plasma alcohol level less than 10, 08/06/2019. Ascitic fluid culture dated 08/06/2019, showed no organisms. EKG dated 08/06/2019, by my interpretation shows sinus mechanism with heart rates in the 90s. Attenuated R-waves noted in the precordial leads. Normal axis. No acute ST-T wave changes appreciated. ASSESSMENT/PLAN: 1. Hepatic cirrhosis with massive ascites. Status post 5+ L removed in the emergency department. We will continue serial monitoring. Consult GI Service for any further recommendations. Consideration for potential transplant. Continue low-sodium diet. 2. Hyperkalemia secondary to hepatic cirrhosis. Repeat potassium level in the a.m., status post paracentesis. 3. Hyponatremia. Chronic secondary to hepatic cirrhosis. Repeat sodium level in the a.m. 4. Coagulopathy secondary to hepatic cirrhosis. No current evidence to suggest acute or active blood loss. Serial CBC monitoring. 5. Chronic normocytic anemia secondary to hepatic cirrhosis. Serial hemoglobin monitoring. 6. Prophylaxis. SCDs while in bed. Protonix 40 mg p.o. daily. Case management consult. 7. Code status is full. Surrogate medical decision maker is patient's spouse. Job ID: [id number]
[2019-08-07] MEDS: traMADol HCl 50 MG TAB PO PRN ×2 (04:13→20:15)
[2019-08-07 05:44] LABS: Eosinophils 5 % (0-10); Hemoglobin 7.3 g/dL (12.0-16.0); Lymphocytes 36 % (21-51); MDiff Complete? YES; Mean Corpuscular HGB CONC 32.2 g/dL (32.0-36.0); Mean Corpuscular Hemoglobin 28.6 pg (27.0-31.0); Mean Corpuscular Volume 88.7 fL (78.0-98.0); Mean Platelet Volume 9.3 fL (7.4-10.4); Monocytes 10 % (0-10); Neutrophil 49 % (42-75); Platelet Count 100 thou/uL (130-400); Platelet Morphology Comment Appears Decreased; RBC Distribution Width 18.5 % (11.5-14.5); Red Blood Cell (RBC) Count 2.57 mill/uL (4.20-5.40); Schistocytes SLIGHT = 2-5 cells (100X) (0-1/hpf); Target Cells SLIGHT = 2-5 cells (100X) (0-1/hpf); White Blood Cell (WBC) Count 4.5 thou/uL (4.8-10.8)
[2019-08-07 06:45] LABS: ALT (SGPT) 10 U/L (8-55); AST (SGOT) 34 U/L (5-34); Albumin 2.3 g/dL (3.5-5.0); Alkaline Phosphatase 108 U/L (40-110); Anion Gap 8 mmol/L (10-20); BUN (Urea Nitrogen) 5 mg/dL (9.8-20.1); Calc. Creatinine Clearance 125 mL/min (70-130); Carbon Dioxide 21 mmol/L (22-29); Chloride 108 mmol/L (98-107); Estimated GFR-MDRD Greater than 90; Globulin 3.2 g/dL (2.4-3.5); Glucose 118 mg/dL (70-105); Potassium 3.9 mmol/L (3.5-5.1); Protein, Total 5.5 g/dL (6.0-8.3); Sodium 133 mmol/L (136-145)
[2019-08-07] MEDS: Famotidine 20 MG TAB PO SCH ×2 (08:12→20:14)
[2019-08-07] MEDS: Multivitamin W/ Minerals 1 TAB PO SCH (08:12)
[2019-08-07] MEDS: Cyanocobalamin (Vitamin B-12) 1,000 MCG TAB PO SCH (08:12)
[2019-08-07] MEDS: Folic Acid 1 MG TAB PO SCH (08:12)
[2019-08-07] MEDS: Thiamine 100 MG TAB PO SCH (08:12)
[2019-08-07] MEDS: Fish Oil 1,000 MG CAP PO SCH (08:12)
[2019-08-07] MEDS: Magnesium Oxide 250 MG TAB PO SCH (08:12)
[2019-08-07] MEDS: Calcium Carbonate 500 MG TAB PO SCH (08:16)
[2019-08-07 12:28] VITALS: BMI 28.3
--- NOTE | 2019-08-07 15:06 | PDOC.HOSPP ---
- Subjective Encounter Date: 08/07/19 Encounter Time: 15:04 Subjective: Says her abdomen is already getting distended again. Sore at the RLQ where she had the tap and at the upper abdomen. Says the muscles there were very distended prior to the tap from the ascites. Says she has cirrhosis from EtOH. Has not drank since October. Did see Therese at Dr. Stewart' office. Not sure what they told her. - Objective Vital Signs & Weight: Vital Signs (12 hours) Temp Pulse Resp BP Pulse Ox 08/07/19 12:04 98.0 F 95 20 113/71 96 08/07/19 08:00 96 08/07/19 07:50 98.0 F 101 H 18 104/69 96 08/07/19 05:08 98.0 F 100 19 93/63 98 Weight Admit Weight 161 lb 12.8 oz Weight 165 lb I&O: 08/06/19 08/07/19 08/08/19 06:59 06:59 06:59 Intake Total 1070 Balance 1070 Result Diagrams: 08/07/19 05:11 08/07/19 05:11 Hospitalist ROS - Medication Medications: Active Medications Generic Name Dose Route Start Last Admin Trade Name Freq PRN Reason Stop Dose Admin Calcium Carbonate 500 mg 08/07/19 09:00 08/07/19 08:16 Oscal-500 PO 500 mg DAILY STEPH Administration Cholecalciferol 1,000 units 08/07/19 09:00 08/07/19 08:12 Vitamin D3 PO 1,000 units DAILY STEPH Administration Cyanocobalamin 1,000 mcg 08/07/19 09:00 08/07/19 08:12 Vitamin B-12 PO 1,000 mcg DAILY STEPH Administration Famotidine 20 mg 08/07/19 09:00 08/07/19 08:12 Pepcid PO 20 mg BID STEPH Administration Fish Oil 1 mg 08/07/19 09:00 08/07/19 08:12 Fish Oil PO 1 mg DAILY STEPH Administration Folic Acid 1 mg 08/07/19 09:00 08/07/19 08:12 Folvite PO 1 mg DAILY STEPH Administration Ceftriaxone Sodium 1 gm/ 100 mls @ 200 mls/hr 08/07/19 02:00 08/07/19 01:54 Sodium Chloride IVPB 100 mls 0200 STEPH Administration Iron/Minerals/Multivitamins 1 tab 08/07/19 09:00 08/07/19 08:12 Theragran M PO 1 tab DAILY STEPH Administration Lactulose 20 gm 08/07/19 09:00 08/07/19 08:11 Lactulose PO 20 gm BID STEPH Administration Magnesium Oxide 500 mg 08/07/19 09:00 08/07/19 08:12 Magnesium Oxide PO 500 mg DAILY STEPH Administration Pantoprazole Sodium 40 mg 08/07/19 09:00 08/07/19 08:12 Protonix PO 40 mg DAILY STEPH Administration Temazepam 15 mg 08/07/19 01:08 08/07/19 01:54 Restoril PO 15 mg HSPRN PRN Administration Insomnia Thiamine HCl 100 mg 08/07/19 09:00 08/07/19 08:12 Thiamine PO 100 mg DAILY STEPH Administration Tramadol HCl 50 mg 08/07/19 03:23 08/07/19 04:13 Ultram PO 50 mg Q6H PRN Administration Moderate Pain (4-6) - Exam General Appearance: NAD, awake alert Heart: RRR, no murmur, no gallops, no rubs, normal peripheral pulses Respiratory: CTAB, no wheezes, no rales, no ronchi, normal chest expansion, no tachypnea, normal percussion Gastrointestinal: normal bowel sounds, no guarding, no rigidity, distended Gastrointestinal - other findings: Distended. Sl TTP RLQ and Epig. Extremities: no cyanosis, no clubbing, no edema Musculoskeletal: normal tone, normal strength, no muscle wasting Psychiatric: normal affect, normal behavior, A&O x 3 Hosp A/P (1) Ascites Code(s): R18.8 - OTHER ASCITES Status: Acute Qualifiers: Ascites type: due to alcoholic cirrhosis Qualified Code(s): K70.31 - Alcoholic cirrhosis of liver with ascites (2) Hypokalemia Code(s): E87.6 - HYPOKALEMIA Status: Acute (3) Alcoholic cirrhosis of liver Code(s): K70.30 - ALCOHOLIC CIRRHOSIS OF LIVER WITHOUT ASCITES Status: Chronic (4) Anxiety and depression Code(s): F41.9 - ANXIETY DISORDER, UNSPECIFIED; F32.9 - MAJOR DEPRESSIVE DISORDER, SINGLE EPISODE, UNSPECIFIED Status: Chronic (5) Coagulopathy Status: Chronic (6) Fibromyalgia Status: Chronic (7) Pancytopenia Code(s): D61.818 - OTHER PANCYTOPENIA Status: Chronic - Plan Labs are significantly changed. Will repeat the H and H and the CMP. Has recurring distention. Need to ensure this is not from bleeding with the drop in hemoglobin. Likely just rapidly developing ascitic fluid. GI consult pending. She was following with the GI clinic as OP. Off EtOH since October. Fluid does not look infected. Can likely DC the Rocephin, but will defer to GI.
[2019-08-07 16:25] VITALS: TEMP 98.1
[2019-08-07 16:34] LABS: ALT (SGPT) 11 U/L (8-55); AST (SGOT) 46 U/L (5-34); Albumin 2.4 g/dL (3.5-5.0); Alkaline Phosphatase 126 U/L (40-110); Anion Gap 10 mmol/L (10-20); BUN (Urea Nitrogen) 6 mg/dL (9.8-20.1); Calc. Creatinine Clearance 121 mL/min (70-130); Calcium 7.9 mg/dL (7.8-10.44); Carbon Dioxide 20 mmol/L (22-29); Chloride 107 mmol/L (98-107); Estimated GFR-MDRD Greater than 90; Globulin 3.6 g/dL (2.4-3.5); Glucose 100 mg/dL (70-105); Potassium 4.7 mmol/L (3.5-5.1); Sodium 132 mmol/L (136-145)
--- NOTE | 2019-08-07 16:45 | CON ---
DATE OF CONSULTATION: 08/07/2019 REASON FOR CONSULTATION: Cirrhosis and ascites. HISTORY OF PRESENT ILLNESS: Aicha Osorio is a 54-year-old woman, well known to my partner, Dr. Maciel Stewart. She has had multiple admissions over the past several years for complications related to her cirrhosis, whether it be recurrent Snehal-Crews tears with ongoing alcohol abuse, or more recently development of ascites, or encephalopathy. The patient reports that she stopped drinking about 3 months ago, though notably during her June admission, she had told Dr. Stewart she was still drinking at any rate, it appears that she has had more recent decompensation with refractory ascites. She tells me that for the past month she has been getting weekly paracentesis with her primary care physician. She presented to our clinic yesterday and was seen by a physician medical assistant ob gyn, complaining of severe generalized abdominal pain and worsening distention. She was sent to the ER and underwent paracentesis of 5.5 L of fluid yesterday. Fluid studies appear to be negative for SBP. She is feeling a bit better, though abdomen remains distended. She does not have any other acute symptoms. There is no fever or leukocytosis. It appears that she is not on any diuretics on an outpatient basis. PAST MEDICAL HISTORY: 1. Cirrhosis with recurrent ascites, and alcohol abuse, with last drink three months ago per the patient. 2. GERD. 3. Hypertension. 4. Chronic back pain. 5. Chronic rectal bleeding. 6. Recurrent Snehal-Crews tear. 7. Chronic anemia. 8. Endometrial ablation. 9. Breast augmentation. 10. Tubal ligation. OUTPATIENT MEDICATIONS: 1. Protonix 40 mg daily. 2. Folic acid 1 mg daily. 3. Temazepam at bedtime. 4. Ultram p.r.n. 5. Calcium carbonate 500 mg daily. 6. Vitamin D3 of 1000 units daily. 7. Lactulose twice daily. 8. Magnesium oxide 500 mg daily. 9. [place]-3 fatty acid one capsule daily. 10. Zofran p.r.n. 11. Thiamine 100 mg p.o. daily. ALLERGIES: NO KNOWN DRUG ALLERGIES. FAMILY HISTORY: Noncontributory. SOCIAL HISTORY: The patient lives in [place], [place]. Chronic long-term alcohol abuse, though she says that she stopped about 3 months ago. No drug use. No tobacco abuse. REVIEW OF SYSTEMS: Full review of systems including constitutional, head, eyes, ears, nose, throat, GI, , cardiovascular, respiratory, musculoskeletal, and neurologic systems are negative except as noted in the HPI. PHYSICAL EXAMINATION: VITAL SIGNS: Temperature 98.0, pulse 95, blood pressure 113/71, and 96% oxygen saturation on room air. GENERAL: A 54-year-old woman, lying in bed comfortably, in no distress. SKIN: No jaundice. No rashes were palpable. HEENT: Eyes, no scleral icterus. Extraocular movements intact. ENT, mucous membranes moist. No oral lesions. LYMPH: No submandibular or supraclavicular lymphadenopathy. Thyroid nontender to palpation. HEART: Regular rate and rhythm. LUNGS: Clear to auscultation bilaterally. ABDOMEN: Distended with positive fluid wave, not tense, nontender to palpation. Bowel sounds present. EXTREMITIES: No peripheral edema. VESSELS: Radial pulse 2+ bilaterally. NEURO: Cranial nerves 2 through 12 intact bilaterally. No asterixis. LABORATORY STUDIES: WBC 4.5, hemoglobin 7.3, and platelets 100. INR 2.1. Sodium 133, potassium 3.9, BUN only 5, creatinine only 0.61, total bilirubin 3.0, alkaline phosphatase 108, AST 34, ALT 10 albumin 2.3, and lipase 8. Urinalysis shows moderate leukocyte esterase. Plasma alcohol level is negative. Paracentesis fluid showed only 86 wbc's, only 11% neutrophils. IMAGING STUDIES: Last paracentesis ultrasound was 07/31/2019. At that time, 4.3 L of ascites were removed. ASSESSMENT AND PLAN: 1. Alcoholic cirrhosis. 2. History of encephalopathy, on lactulose. 3. Coagulopathy, secondary to cirrhosis. 4. Ascites. She has had some minimal ascites before, but this does appear to be a worsening issue over the past couple of months. Notably, she has not been on any diuretics, but has been receiving weekly paracentesis for the past few weeks. I would like to go ahead and start her on Lasix and spironolactone. We will start out at low dose of 20 mg of Lasix and 50 mg of spironolactone for now. This can be titrated up as her renal function tolerates. Notably, fluid appears negative for SBP. Job ID: [id number]
[2019-08-08] MEDS: cefTRIAXone\\ROCEPHIN 1 GM in Sodium Chloride 0.9% 100 ML IVPB SCH (02:14)
[2019-08-08] MEDS ORDERED: Dicyclomine 20 MG TAB PO SCH (03:15)
[2019-08-08] MEDS ORDERED: Spironolactone 25 MG TAB PO SCH (08:00)
[2019-08-08] MEDS: Thiamine 100 MG TAB PO SCH (08:05)
[2019-08-08] MEDS: Folic Acid 1 MG TAB PO SCH (08:05)
[2019-08-08] MEDS: Multivitamin W/ Minerals 1 TAB PO SCH (08:05)
[2019-08-08] MEDS: Cyanocobalamin (Vitamin B-12) 1,000 MCG TAB PO SCH (08:05)
[2019-08-08] MEDS: Calcium Carbonate 500 MG TAB PO SCH (08:05)
[2019-08-08] MEDS: Famotidine 20 MG TAB PO SCH (08:05)
[2019-08-08] MEDS: Magnesium Oxide 250 MG TAB PO SCH (08:06)
[2019-08-08] MEDS: Fish Oil 1,000 MG CAP PO SCH (08:06)
[2019-08-08] MEDS ORDERED: Furosemide 20 MG TAB PO SCH (09:00)
[2019-08-08 11:28] VITALS: BP 102/65
--- NOTE | 2019-08-08 11:32 | PDOC.PALCO ---
Palliative Care Consult - Consult Details Requesting Physician: Dr Lacy Reason for Consult: goals of care, assistance with communication prognosis/ disease Family Members Present: none - Pertinent HPI 54 year old female with recurrent ascites from advanced hepatic cirrhosis. She has been receiving paracentesis weekly for therapeutic measures over the past four months. Apparently she is able to perform minimal ADLs for aprox 2-3 days post paracentesis with a progression towards limited ability to do ADL's and increase in shortness of breath. After presentation to the emergency room she had 5.5 liters removed and was given albumin/zofran/morphine and admitted to the medical floor for further management. She states in fact she has not been to see a physician/GI secondary to no insurance, she status that Medicaid has been applied for and is pending. Continues to live with her significant other who is 20 years older than her and she helps care for, she lives on property that is her parents and her mother assists her with meals and transportation. Uncertain how compliant she is with medication as she states she has limited funds and that her parents help her at times with getting medication. Unable to recall last drink, states it was around 3 months ago. - Pertinent PMH Hepatic cirrhosis with recurrent ascites, Alcohol abuse, GERD, Hypertension, Chronic Back Pain, Anemia, rectal bleeding - Social History Smoking Status: Never smoker Smoking: no tobacco exposure Alcohol Use: other (Last drink around 3 months ago, heavy use prior 10+ beers daily) Living Situation: with partner (Helps care for her partner who is 20 years older ) - Medications MAR Reviewed: Yes - Allergies Allergies/Adverse Reactions: Allergies Allergy/AdvReac Type Severity Reaction Status Date / Time No Known Allergies Allergy Verified 08/06/19 14:22 - Subjective Ill appearing with distended abdomen, pain, decrease appetite, weakness. ROS: 10 point review otherwise negative with the exception mentioned - Objective Vital Signs: Vital Signs - Most Recent Temp Pulse Resp BP Pulse Ox 98.1 F 97 18 101/66 94 L 08/08/19 07:16 08/08/19 07:16 08/08/19 07:16 08/08/19 07:16 08/08/19 07:16 - Physical Exam Constitutional: mild distress HEENT: PERRLA, moist MMs, EOMI Deviation from normal: scleral ictris Respiratory: no wheezing Deviation from normal: Labored related to abdominal distension Cardiovascular: RRR, no significant murmur Deviation from normal: Distended with tympani, tender Musculoskeletal: pulses present Neurological: moves all 4 limbs Psychiatric: A&O x 3 Deviation from normal: depressed, flat affect Skin: cap refill <2 seconds Deviation from normal: icteric - Problem List (1) Ascites Code(s): R18.8 - OTHER ASCITES Current Visit: No Status: Acute Qualifiers: Ascites type: due to alcoholic cirrhosis Qualified Code(s): K70.31 - Alcoholic cirrhosis of liver with ascites (2) Palliative care encounter Code(s): Z51.5 - ENCOUNTER FOR PALLIATIVE CARE Current Visit: No Status: Acute (3) Alcoholic cirrhosis of liver Code(s): K70.30 - ALCOHOLIC CIRRHOSIS OF LIVER WITHOUT ASCITES Current Visit: No Status: Chronic - Plan/Recommendations Plan: *Identify if patient has applied for Medicaid and if not assist in reapplying *Discuss with palliative care team if there is a resource for assistance for appts (Not compliant at Dr as she has not followed up with GI as initially reported) *Identify if there is a resource for assistance for medication *Suggest increase in Spironolactone 100mg daily increasing as patient can tolerate *Consider antidepressant at a reduced dose *Dietary consult for nutrition related to adequate intake of protein [80] minutes spent on this encounter with >50% of the time in counseling and coordination of care. Thank you for this very appropriate consult.
== END 2019-08-08 14:19 | disposition home or self-care (01) ==
LOC: ERS 16:13 → T4-B 19:51
PROVIDERS: ADMIT Pediatrics; ATTEND Pediatrics
DX: K70.31 Alcoholic cirrhosis of liver with ascites (principal); F10.19 Alcohol abuse with unspecified alcohol-induced disorder; K72.90 Hepatic failure, unspecified without coma; D63.8 Anemia in other chronic diseases classified elsewhere; E87.5 Hyperkalemia; E87.1 Hypo-osmolality and hyponatremia; I10 Essential (primary) hypertension; K21.9 Gastro-esophageal reflux disease without esophagitis; F41.8 Other specified anxiety disorders; F32.9 Major depressive disorder, single episode, unspecified; M79.7 Fibromyalgia; D61.818 Other pancytopenia; Z79.899 Other long term (current) drug therapy
CPT/HCPCS: 36415; 49083; 51701; 80053; 80307; 81003; 81015; 83690; 85007; 85025; 85027; 85060; 85610; 85730; 87070; 87086; 87205; 89051; 93005; 96365; 96366; 96367; 96375; A4353; G0378; J0696; J2001; J2270; J2405; J3490; P9047

== ENCOUNTER 2019-08-14 08:17 | Day surgery (SDC) | payer OTHER ==
[2019-08-13 08:34] VITALS: BMI 27.4
[2019-08-14] MEDS ORDERED: Sodium Bicarbonate 2.5 MEQ/5 ML VIAL ONE (09:59)
--- NOTE | 2019-08-14 11:28 | ULT ---
Exam: Ultrasound guided paracentesis HISTORY: Ascites COMPARISON: 07/31/2019 FINDINGS: Successful ultrasound-guided paracentesis. Total of 4.5 L of yellow color ascites was aspir ated. TECHNIQUE: Consent obtained reformatory ultrasound-guided paracentesis. Right lower quadrant was deem ed appropriate. Skin was prepped and draped in a sterile fashion. 1% lidocaine, buffered with sodium bicarbonate was used for local anesthesia. Under ultrasound guidance, a 5 Solomon Islander 7 cm Yueh cat heter is advanced in the peritoneal space. A total of 4.5 L of yellow color ascites was aspirated. No immediate or postprocedural complications IMPRESSION: Successful ultrasound-guided paracentesis.
== END 2019-08-14 11:10 | disposition home or self-care (01) ==
LOC: ULT 08:17
PROVIDERS: ATTEND Nurse Practitioner Family
PROC: 0W9G3ZZ Drainage of Peritoneal Cavity, Percutaneous Approach (ICD-10-PCS; principal; 2019-08-14)
DX: K70.31 Alcoholic cirrhosis of liver with ascites (principal); I10 Essential (primary) hypertension; K76.7 Hepatorenal syndrome; G62.9 Polyneuropathy, unspecified; G47.00 Insomnia, unspecified; Z79.899 Other long term (current) drug therapy; J45.909 Unspecified asthma, uncomplicated; F41.9 Anxiety disorder, unspecified; F32.9 Major depressive disorder, single episode, unspecified; K21.9 Gastro-esophageal reflux disease without esophagitis; H54.7 Unspecified visual loss
CPT/HCPCS: 49083

== ENCOUNTER 2019-08-21 09:42 | Day surgery (SDC) | payer OTHER ==
[2019-08-20 11:09] VITALS: BMI 27.4
[~2019-08-21 09:42] MED LIST changes: +FLU VACC QS2019-20(6MOS UP)/PF 60 MCG/0.5 ML SYRINGE IM ONE; -ISOVUE-370 76%-LOCM 1 ML ONE
[2019-08-21] MEDS ORDERED: Sodium Bicarbonate 2.5 MEQ/5 ML VIAL ONE (09:51)
[2019-08-21 11:36] VITALS: BP 117/64; TEMP 98.2
--- NOTE | 2019-08-21 14:22 | ULT ---
Ultrasound-guided paracentesis therapeutic: DATE: 08/21/2019 HISTORY: 54-year-old female with asymptomatic ascites due to alcoholic cirrhosis. TECHNIQUE: Signed informed consent obtained. Four-quadrant survey of abdominal cavity. Right lower quadrant chacho cted. Overlying skin prepared and draped in usual sterile fashion. 25-gauge needle used to apply buffered lidocaine. 5 Nauruan StudyEggeh catheter with stylette advanced in tandem with the 25-gauge needle. Stylette and 25-gauge needle removed. Catheter connected to a series of evacuated bottles via plastic tubing. After drainage, catheter removed. Patient tolerated procedure well. No competitions. FINDINGS: Prior to the procedure, large volume of free intraperitoneal fluid is demonstrated. After the procedu re, there is a small amount of residual fluid in the right lower quadrant. A total of 5000 mL of nonhemorrhagic straw-colored fluid was drained. IMPRESSION: Successful therapeutic paracentesis, with drainage of 5 L of ascites fluid.
== END 2019-08-21 11:20 | disposition home or self-care (01) ==
LOC: ULT 09:42
PROVIDERS: ATTEND Nurse Practitioner Family
PROC: BW40ZZZ Ultrasonography of Abdomen (ICD-10-PCS; principal; 2019-08-21)
PROC: 0W9G3ZZ Drainage of Peritoneal Cavity, Percutaneous Approach (ICD-10-PCS; principal; 2019-08-21)
DX: K70.31 Alcoholic cirrhosis of liver with ascites (principal); I10 Essential (primary) hypertension; F41.9 Anxiety disorder, unspecified; F32.9 Major depressive disorder, single episode, unspecified; M19.90 Unspecified osteoarthritis, unspecified site; J45.909 Unspecified asthma, uncomplicated; D64.9 Anemia, unspecified; Z79.899 Other long term (current) drug therapy
CPT/HCPCS: 49083

== ENCOUNTER 2019-08-24 11:18 | Emergency (ER) | payer OTHER ==
[2019-08-24 11:53] LABS: Hemoglobin 8.6 g/dL (12.0-16.0); Red Blood Cell (RBC) Count 2.98 mill/uL (4.20-5.40)
[2019-08-24 11:58] LABS: INR-International Normal Ratio 1.9; PTT 39.3 SEC (22.9-36.1); Prothrombin Time 21.8 SEC (12.0-14.7)
[2019-08-24 12:11] LABS: Mean Corpuscular HGB CONC 31.7 g/dL (32.0-36.0); Mean Corpuscular Hemoglobin 28.8 pg (27.0-31.0); Mean Corpuscular Volume 91.1 fL (78.0-98.0); Platelet Count 128 thou/uL (130-400); RBC Distribution Width 18.6 % (11.5-14.5)
[2019-08-24 12:15] LABS: ALT (SGPT) 17 U/L (8-55); AST (SGOT) 50 U/L (5-34); Albumin 2.4 g/dL (3.5-5.0); Alkaline Phosphatase 116 U/L (40-110); Anion Gap 9 mmol/L (10-20); BUN (Urea Nitrogen) 7 mg/dL (9.8-20.1); Bilirubin, Total 4.4 mg/dL (0.2-1.2); Burr Cells SLIGHT = 2-5 cells (100X) (0-1/hpf); Calc. Creatinine Clearance 0 mL/min (70-130); Calcium 8.2 mg/dL (7.8-10.44); Carbon Dioxide 22 mmol/L (22-29); Chloride 108 mmol/L (98-107); Eosinophils 1 % (0-10); Estimated GFR-MDRD 84; Globulin 4.2 g/dL (2.4-3.5); Glucose 109 mg/dL (70-105); Hypochromia SLIGHT = 6-15 cells (100X) (0-5/hpf); Lymphocytes 28 % (21-51); MDiff Complete? YES; Monocytes 12 % (0-10); Neutrophil 58 % (42-75); Platelet Morphology Comment Appears Decreased; Polychromasia SLIGHT = 2-3 cells (100X) (0-2/hpf); Potassium 3.9 mmol/L (3.5-5.1); Protein, Total 6.6 g/dL (6.0-8.3); Sodium 135 mmol/L (136-145); Target Cells SLIGHT = 2-5 cells (100X) (0-1/hpf)
== END 2019-08-24 15:00 | disposition home or self-care (01) ==
LOC: ERS 11:18
DX: R18.8 Other ascites (principal); K74.60 Unspecified cirrhosis of liver; K21.9 Gastro-esophageal reflux disease without esophagitis; I10 Essential (primary) hypertension; F32.9 Major depressive disorder, single episode, unspecified; Z79.899 Other long term (current) drug therapy
CPT/HCPCS: 36415; 49082; 80053; 85025; 85610; 85730

== ENCOUNTER 2019-08-27 13:42 | Emergency (ER) | payer OTHER, SELFPAY ==
[2019-08-27] MEDS ORDERED: Morphine 4 MG/ML VIAL ONE ×2 (14:11→16:19)
[2019-08-27 14:54] LABS: Hemoglobin 8.8 g/dL (12.0-16.0); Mean Corpuscular HGB CONC 31.6 g/dL (32.0-36.0); Mean Corpuscular Hemoglobin 28.7 pg (27.0-31.0); Mean Corpuscular Volume 90.9 fL (78.0-98.0); Mean Platelet Volume 8.2 fL (7.4-10.4); Platelet Count 134 thou/uL (130-400); RBC Distribution Width 18.2 % (11.5-14.5); Red Blood Cell (RBC) Count 3.08 mill/uL (4.20-5.40)
[2019-08-27 14:55] LABS: Prothrombin Time 22.3 SEC (12.0-14.7)
[2019-08-27 15:08] LABS: ALT (SGPT) 17 U/L (8-55); AST (SGOT) 42 U/L (5-34); Albumin 2.4 g/dL (3.5-5.0); Alkaline Phosphatase 132 U/L (40-110); Anion Gap 9 mmol/L (10-20); BUN (Urea Nitrogen) 9 mg/dL (9.8-20.1); Bilirubin, Total 4.3 mg/dL (0.2-1.2); Calc. Creatinine Clearance 0 mL/min (70-130); Calcium 8.4 mg/dL (7.8-10.44); Carbon Dioxide 24 mmol/L (22-29); Chloride 101 mmol/L (98-107); Estimated GFR-MDRD 75; Globulin 4.2 g/dL (2.4-3.5); Glucose 110 mg/dL (70-105); Protein, Total 6.6 g/dL (6.0-8.3); Sodium 130 mmol/L (136-145)
[2019-08-27 15:16] LABS: Eosinophils 1 % (0-10); Hypochromia SLIGHT = 6-15 cells (100X) (0-5/hpf); Lymphocytes 32 % (21-51); MDiff Complete? YES; Monocytes 15 % (0-10); Neutrophil 51 % (42-75); Platelet Morphology Comment Appears Adequate; Polychromasia SLIGHT = 2-3 cells (100X) (0-2/hpf); Schistocytes SLIGHT = 2-5 cells (100X) (0-1/hpf); Target Cells SLIGHT = 2-5 cells (100X) (0-1/hpf)
[2019-08-27 17:35] LABS: RBC Count-Automated (BF) 95 /cumm; WBC/Nucleated-Auto (BF) 95 uL
[2019-08-27 17:52] LABS: Body Fluid Source Ascites Body Fluid; Tube # 1
[2019-08-27 17:53] LABS: BF Color Yellow; Clarity Hazy (Clear)
[2019-08-27 17:56] LABS: BF Segmented Neutrophils 17 %; Cell Count Non Hematic 53 %; Lymphocytes 30 %
== END 2019-08-27 18:37 | disposition home or self-care (01) ==
LOC: ERS 13:42
DX: K74.60 Unspecified cirrhosis of liver (principal); K21.9 Gastro-esophageal reflux disease without esophagitis; I10 Essential (primary) hypertension; F32.9 Major depressive disorder, single episode, unspecified; Z79.899 Other long term (current) drug therapy
CPT/HCPCS: 49083; 80053; 82042; 82945; 83615; 84157; 85025; 85060; 85610; 85730; 87070; 87205; 89051; 96374; 96376; J2270

== ENCOUNTER 2019-08-31 13:31 | Emergency (ER) | payer SELFPAY ==
[2019-08-31 14:24] LABS: Hemoglobin 9.6 g/dL (12.0-16.0); Mean Corpuscular HGB CONC 31.2 g/dL (32.0-36.0); Mean Corpuscular Hemoglobin 28.5 pg (27.0-31.0); Mean Corpuscular Volume 91.2 fL (78.0-98.0); Mean Platelet Volume 8.6 fL (7.4-10.4); Platelet Count 158 thou/uL (130-400); Red Blood Cell (RBC) Count 3.38 mill/uL (4.20-5.40); White Blood Cell (WBC) Count 6.1 thou/uL (4.8-10.8)
[2019-08-31 14:28] LABS: INR-International Normal Ratio 1.8
[2019-08-31 14:29] LABS: PTT 36.1 SEC (22.9-36.1)
[2019-08-31 14:44] LABS: ALT (SGPT) 16 U/L (8-55); AST (SGOT) 40 U/L (5-34); Albumin 2.6 g/dL (3.5-5.0); Alkaline Phosphatase 147 U/L (40-110); Anion Gap 11 mmol/L (10-20); BUN (Urea Nitrogen) 6 mg/dL (9.8-20.1); Bilirubin, Total 4.2 mg/dL (0.2-1.2); Calc. Creatinine Clearance 0 mL/min (70-130); Calcium 8.5 mg/dL (7.8-10.44); Carbon Dioxide 23 mmol/L (22-29); Chloride 101 mmol/L (98-107); Estimated GFR-MDRD 76; Globulin 4.6 g/dL (2.4-3.5); Glucose 101 mg/dL (70-105); Potassium 4.3 mmol/L (3.5-5.1); Protein, Total 7.2 g/dL (6.0-8.3); Sodium 131 mmol/L (136-145)
[2019-08-31] MEDS ORDERED: Morphine 2 MG/ML SYRINGE ONE (14:48)
[2019-08-31 14:51] LABS: Band 2 % (5-11); Hypochromia SLIGHT = 6-15 cells (100X) (0-5/hpf); Lymphocytes 11 % (21-51); MDiff Complete? YES; Monocytes 14 % (0-10); Neutrophil 51 % (42-75); Platelet Morphology Comment Appears Adequate; Polychromasia SLIGHT = 2-3 cells (100X) (0-2/hpf); Reactive Lymphocytes 22 % (0-10); Schistocytes SLIGHT = 2-5 cells (100X) (0-1/hpf); Target Cells MODERATE= 6-15 cells (100X) (0-1/hpf); Tear Drops SLIGHT = 2-5 cells (100X) (0-1/hpf)
== END 2019-08-31 17:25 | disposition home or self-care (01) ==
LOC: ERS 13:31
DX: R18.8 Other ascites (principal); I10 Essential (primary) hypertension; K21.9 Gastro-esophageal reflux disease without esophagitis; K74.60 Unspecified cirrhosis of liver; F32.9 Major depressive disorder, single episode, unspecified
CPT/HCPCS: 49083; 80053; 85025; 85610; 85730; 87040; 96374; J2270

== ENCOUNTER 2019-09-04 09:31 | Day surgery (SDC) | payer OTHER ==
[2019-09-03 15:04] VITALS: BMI 27.4
[2019-09-04] MEDS ORDERED: Sodium Bicarbonate 2.5 MEQ/5 ML VIAL ONE (10:10)
--- NOTE | 2019-09-04 11:24 | ULT ---
Sonographic guided paracentesis HISTORY: Recurrent ascites. FINDINGS: After explaining the procedure and answering all questions, sonographic survey shows large amount of free fluid throughout the abdomen. Sterile technique, buffered local anesthesia, sonographic guidance, and a right lower quadrant approach were used to carefully advance a 19-gauge Y ueh needle and catheter into the free fluid. Catheter was left to drain a total volume of 5.4 L cloudy yellow liquid. Catheter was removed with minimal fluid remaining. Patient tolerated the proced ure well and was dismissed in good condition. IMPRESSION: Technically successful sonographic guided paracentesis.
[2019-09-04 12:06] VITALS: BP 100/57; TEMP 98.2
== END 2019-09-04 11:15 | disposition home or self-care (01) ==
LOC: ULT 09:31
PROVIDERS: ATTEND Nurse Practitioner Family
PROC: 0W9G3ZZ Drainage of Peritoneal Cavity, Percutaneous Approach (ICD-10-PCS; principal; 2019-09-04)
DX: K70.31 Alcoholic cirrhosis of liver with ascites (principal); F10.11 Alcohol abuse, in remission; D64.9 Anemia, unspecified; I10 Essential (primary) hypertension; J45.909 Unspecified asthma, uncomplicated; K21.9 Gastro-esophageal reflux disease without esophagitis; F41.9 Anxiety disorder, unspecified; Z79.899 Other long term (current) drug therapy
CPT/HCPCS: 49083

== ENCOUNTER → 2019-09-11 | Day surgery (SDC) | payer OTHER ==
--- NOTE | 2019-09-11 12:50 | ULT ---
Exam: Ultrasound guided paracentesis HISTORY: Ascites COMPARISON: September 04, 2019 FINDINGS: Successful ultrasound-guided paracentesis. Total of 4 L ofascites was aspirated. TECHNIQUE: Consent obtained reformatory ultrasound-guided paracentesis. Right lower quadrant was deem ed appropriate. Skin was prepped and draped in a sterile fashion. 1% lidocaine, buffered with sodium bicarbonate was used for local anesthesia. Under ultrasound guidance, a 5 Paraguayan 7 cm Yueh cat heter is advanced in the peritoneal space. A total of 4 L of normal appearingascites was aspirated. No immediate or postprocedural complications IMPRESSION: Successful ultrasound-guided paracentesis.
== END ==
LOC: ULT 09:34
PROVIDERS: ATTEND Nurse Practitioner Family
PROC: 0W9G3ZZ Drainage of Peritoneal Cavity, Percutaneous Approach (ICD-10-PCS; principal; 2019-09-11)
PROC: BW40ZZZ Ultrasonography of Abdomen (ICD-10-PCS; principal; 2019-09-11)
DX: K74.60 Unspecified cirrhosis of liver (principal); R18.8 Other ascites; I10 Essential (primary) hypertension; F41.9 Anxiety disorder, unspecified; F32.9 Major depressive disorder, single episode, unspecified; J45.909 Unspecified asthma, uncomplicated; D64.9 Anemia, unspecified; R56.9 Unspecified convulsions
CPT/HCPCS: 49083

== ENCOUNTER 2019-09-14 08:22 | Emergency (ER) | payer OTHER, SELFPAY ==
[2019-09-14 09:25] LABS: ALT (SGPT) 16 U/L (8-55); AST (SGOT) 36 U/L (5-34); Albumin 2.1 g/dL (3.5-5.0); Alkaline Phosphatase 135 U/L (40-110); Anion Gap 11 mmol/L (10-20); BUN (Urea Nitrogen) 7 mg/dL (9.8-20.1); Bilirubin, Total 3.4 mg/dL (0.2-1.2); Calc. Creatinine Clearance 0 mL/min (70-130); Calcium 7.8 mg/dL (7.8-10.44); Carbon Dioxide 15 mmol/L (22-29); Chloride 106 mmol/L (98-107); Estimated GFR-MDRD 74; Glucose 88 mg/dL (70-105); Lipase 23 U/L (8-78); Potassium 4.3 mmol/L (3.5-5.1); Protein, Total 6.1 g/dL (6.0-8.3); Sodium 128 mmol/L (136-145)
[2019-09-14 09:52] LABS: INR-International Normal Ratio 1.9; PTT 38.8 SEC (22.9-36.1); Prothrombin Time 21.8 SEC (12.0-14.7)
[2019-09-14 10:05] LABS: RBC Count-Automated (BF) 162 /cumm; WBC/Nucleated-Auto (BF) 124 uL
[2019-09-14 10:13] LABS: Anisocytosis SLIGHT = 6-15 cells (100X) (0-5/hpf); Band 6 % (5-11); Eosinophils 2 % (0-10); Hemoglobin 8.4 g/dL (12.0-16.0); Hypochromia MODERATE=16-30 cells (100X) (0-5/hpf); Lymphocytes 20 % (21-51); MDiff Complete? YES; Mean Corpuscular HGB CONC 31.7 g/dL (32.0-36.0); Mean Corpuscular Hemoglobin 29.3 pg (27.0-31.0); Mean Corpuscular Volume 92.7 fL (78.0-98.0); Mean Platelet Volume 8.3 fL (7.4-10.4); Metamyelocyte 2 % (0-0); Monocytes 5 % (0-10); Neutrophil 62 % (42-75); Nucleated RBC 1 % (0); Ovalocytes SLIGHT = 2-5 cells (100X) (0-1/hpf); Platelet Count 103 thou/uL (130-400); Poikilocytosis SLIGHT = 6-15 cells (100X) (0-5/hpf); RBC Distribution Width 17.6 % (11.5-14.5); Reactive Lymphocytes 3 % (0-10); Red Blood Cell (RBC) Count 2.86 mill/uL (4.20-5.40); Schistocytes SLIGHT = 2-5 cells (100X) (0-1/hpf); White Blood Cell (WBC) Count 5.2 thou/uL (4.8-10.8)
[2019-09-14 10:23] LABS: BF Color Yellow; Body Fluid Source Ascites Body Fluid; Clarity Clear (Clear); Tube # 1
[2019-09-14 10:31] LABS: BF Segmented Neutrophils 19 %; Cell Count Non Hematic 62 %; Lymphocytes 19 %
== END 2019-09-14 11:15 | disposition home or self-care (01) ==
LOC: ERS 08:22
DX: K74.60 Unspecified cirrhosis of liver (principal); R18.8 Other ascites; D64.9 Anemia, unspecified; E87.1 Hypo-osmolality and hyponatremia; I10 Essential (primary) hypertension; F32.9 Major depressive disorder, single episode, unspecified; Z79.899 Other long term (current) drug therapy
CPT/HCPCS: 36415; 49083; 80053; 83690; 85025; 85060; 85610; 85730; 87070; 87205; 89051

== ENCOUNTER 2019-09-18 09:39 | Day surgery (SDC) | payer OTHER ==
[2019-09-17 14:39] VITALS: BMI 27.4
[2019-09-18] MEDS ORDERED: Sodium Bicarbonate 2.5 MEQ/5 ML VIAL ONE (09:58)
--- NOTE | 2019-09-18 11:24 | ULT ---
Exam: Ultrasound guided paracentesis HISTORY: Ascites COMPARISON: 09/11/2019 FINDINGS: Successful ultrasound-guided paracentesis. Total of 3 L of yellow color ascites was aspirat ed. TECHNIQUE: Consent obtained reformatory ultrasound-guided paracentesis. Right lower quadrant was deem ed appropriate. Skin was prepped and draped in a sterile fashion. 1% lidocaine, buffered with sodium bicarbonate was used for local anesthesia. Under ultrasound guidance, a 5 Kinyarwanda 7 cm Yueh cat heter is advanced in the peritoneal space. A total of 3 L of yellow color ascites was aspirated. No immediate or postprocedural complications IMPRESSION: Successful ultrasound-guided paracentesis.
[2019-09-18 12:22] VITALS: BP 114/63; TEMP 98.5
== END 2019-09-18 11:20 | disposition home or self-care (01) ==
LOC: ULT 09:39
PROVIDERS: ATTEND Physician Assistant Medical
PROC: 0W9G3ZZ Drainage of Peritoneal Cavity, Percutaneous Approach (ICD-10-PCS; principal; 2019-09-18)
DX: K70.31 Alcoholic cirrhosis of liver with ascites (principal); I10 Essential (primary) hypertension; F41.9 Anxiety disorder, unspecified; F32.9 Major depressive disorder, single episode, unspecified; J45.909 Unspecified asthma, uncomplicated; K21.9 Gastro-esophageal reflux disease without esophagitis; F10.11 Alcohol abuse, in remission; Z79.899 Other long term (current) drug therapy
CPT/HCPCS: 49083

== ENCOUNTER 2019-09-25 09:27 | Day surgery (SDC) | payer OTHER ==
[2019-09-24 13:41] VITALS: BMI 27.4
--- NOTE | 2019-09-25 11:36 | ULT ---
US Paracentesis with Imaging History: Ascites Comparison: There is centesis September 18, 2019 Findings: Patient was brought to the ultrasound suite. All questions were answered. Informed consent was obtained. The patient's right lower quadrant was prepped and draped in normal sterile fashion. Using ultrasound guidance the right peritoneal space was accessed after adequate superficial and deep anesthesia. Using a 5 Vietnamese intraperitoneal catheter, a total of 4 L was removed. The patient tolerated the proc edure well without complication. Impression: Technically successful ultrasound-guided right lower quadrant paracentesis.
[2019-09-25 11:53] VITALS: BP 118/65; TEMP 97.8
== END 2019-09-25 11:15 | disposition home or self-care (01) ==
LOC: ULT 09:27
PROVIDERS: ATTEND Physician Assistant Medical
PROC: 0W9G3ZZ Drainage of Peritoneal Cavity, Percutaneous Approach (ICD-10-PCS; principal; 2019-09-25)
DX: K70.31 Alcoholic cirrhosis of liver with ascites (principal); F10.11 Alcohol abuse, in remission; J45.909 Unspecified asthma, uncomplicated; F41.9 Anxiety disorder, unspecified; F32.9 Major depressive disorder, single episode, unspecified; I10 Essential (primary) hypertension; K21.9 Gastro-esophageal reflux disease without esophagitis; Z79.899 Other long term (current) drug therapy
CPT/HCPCS: 49083

== ENCOUNTER 2019-10-03 11:36 | Day surgery (SDC) | payer OTHER ==
[2019-09-30 14:29] VITALS: BMI 25.9
[2019-10-03 12:10] LABS: Hemoglobin 9.7 g/dL (12.0-16.0); Mean Corpuscular Hemoglobin 29.4 pg (27.0-31.0); Mean Corpuscular Volume 92.1 fL (78.0-98.0); Mean Platelet Volume 7.5 fL (7.4-10.4); Platelet Count 138 thou/uL (130-400); RBC Distribution Width 17.2 % (11.5-14.5); White Blood Cell (WBC) Count 5.7 thou/uL (4.8-10.8)
[2019-10-03 12:17] LABS: INR-International Normal Ratio 1.9; PTT 39.7 SEC (22.9-36.1)
[2019-10-03 12:29] LABS: ALT (SGPT) 19 U/L (8-55); AST (SGOT) 36 U/L (5-34); Albumin 2.5 g/dL (3.5-5.0); Alkaline Phosphatase 135 U/L (40-110); Anion Gap 9 mmol/L (10-20); BUN (Urea Nitrogen) 5 mg/dL (9.8-20.1); Bilirubin, Total 4.3 mg/dL (0.2-1.2); Calc. Creatinine Clearance 85 mL/min (70-130); Calcium 8.2 mg/dL (7.8-10.44); Carbon Dioxide 26 mmol/L (22-29); Chloride 95 mmol/L (98-107); Estimated GFR-MDRD 70; Globulin 4.4 g/dL (2.4-3.5); Glucose 118 mg/dL (70-105); Potassium 3.8 mmol/L (3.5-5.1); Protein, Total 6.9 g/dL (6.0-8.3); Sodium 126 mmol/L (136-145)
--- NOTE | 2019-10-03 14:30 | ULT ---
Ultrasound-guided paracentesis: 10/03/2019 HISTORY: Symptomatic ascites FINDINGS: Informed consent obtained prior to the procedure. Preprocedural imaging demonstrated signif icant ascites throughout the abdomen and pelvis. Right mid abdomenprepped and draped in normal sterile fashion and anesthetized with 1% buffered lidoc maranda. With direct sonographic guidance, 5 Yakut Yueh catheter is advanced into the ascites and removal of the stylet yielded yellowfluid. 3.4 L were removed. The patient tolerated the procedure well. No postprocedural complications. IMPRESSION: Successful ultrasound-guided paracentesis yielding 3.4 L of yellow fluid.
[2019-10-03] MEDS ORDERED: FLU VACC QS2019-20(6MOS UP)/PF 60 MCG/0.5 ML SYRINGE IM ONE (14:45)
== END 2019-10-03 13:50 | disposition home or self-care (01) ==
LOC: ULT 11:36
PROVIDERS: ATTEND Physician Assistant Medical
PROC: 0W9G3ZZ Drainage of Peritoneal Cavity, Percutaneous Approach (ICD-10-PCS; principal; 2019-10-03)
DX: K70.31 Alcoholic cirrhosis of liver with ascites (principal); K72.90 Hepatic failure, unspecified without coma; F10.11 Alcohol abuse, in remission; J45.909 Unspecified asthma, uncomplicated; I10 Essential (primary) hypertension; G43.909 Migraine, unspecified, not intractable, without status migrainosus; K21.9 Gastro-esophageal reflux disease without esophagitis; F41.9 Anxiety disorder, unspecified; Z79.899 Other long term (current) drug therapy
CPT/HCPCS: 49083; 80053; 85027; 85610; 85730; 90471; 90686; G0008

== ENCOUNTER 2019-10-10 09:57 | Day surgery (SDC) | payer OTHER ==
[2019-10-10 10:55] VITALS: BP 110/70; TEMP 98.4
--- NOTE | 2019-10-10 11:51 | ULT ---
Exam: Ultrasound guided paracentesis HISTORY: Ascites COMPARISON: Prior exam dated October 03, 2019. FINDINGS: Successful ultrasound-guided paracentesis. Total of 6.3 L of normal appearingascites was as pirated. TECHNIQUE: Consent obtained for an ultrasound-guided paracentesis. Right lower quadrant was deemed ap propriate. Skin was prepped and draped in a sterile fashion. 1% lidocaine, buffered with sodium bicarbonate was used for local anesthesia. Under ultrasound guidance, a 5 German 7 cm YuuConnecteh catheter i s advanced in the peritoneal space. A total of 6.3 L of normal appearingascites was aspirated. No immediate or postprocedural complications IMPRESSION: Successful ultrasound-guided paracentesis.
== END 2019-10-10 12:00 | disposition home or self-care (01) ==
LOC: ULT 09:57
PROVIDERS: ATTEND Physician Assistant Medical
PROC: 0W9G3ZZ Drainage of Peritoneal Cavity, Percutaneous Approach (ICD-10-PCS; principal; 2019-10-10)
DX: K70.31 Alcoholic cirrhosis of liver with ascites (principal); I10 Essential (primary) hypertension; J45.909 Unspecified asthma, uncomplicated; F41.9 Anxiety disorder, unspecified; F32.9 Major depressive disorder, single episode, unspecified; K21.9 Gastro-esophageal reflux disease without esophagitis; F10.11 Alcohol abuse, in remission; D64.9 Anemia, unspecified; K72.90 Hepatic failure, unspecified without coma; Z79.899 Other long term (current) drug therapy
CPT/HCPCS: 49083

== ENCOUNTER 2019-10-16 09:02 | Day surgery (SDC) | payer OTHER ==
[2019-10-15 13:18] VITALS: BMI 27.4
[2019-10-16] MEDS ORDERED: Albumin 25% 200 ML ONE (09:41)
[2019-10-16] MEDS ORDERED: Sodium Bicarbonate 2.5 MEQ/5 ML VIAL ONE (09:41)
[2019-10-16] MEDS ORDERED: Sodium Chloride 0.9% 10 ML ONE (10:01)
[2019-10-16 10:41] LABS: Anion Gap 12 mmol/L (10-20); BUN (Urea Nitrogen) 8 mg/dL (9.8-20.1); Calc. Creatinine Clearance 85 mL/min (70-130); Calcium 8.3 mg/dL (7.8-10.44); Carbon Dioxide 20 mmol/L (22-29); Chloride 98 mmol/L (98-107); Estimated GFR-MDRD 66; Glucose 92 mg/dL (70-105); Potassium 4.5 mmol/L (3.5-5.1); Sodium 125 mmol/L (136-145)
--- NOTE | 2019-10-16 11:20 | ULT ---
Sonographic guided paracentesis HISTORY:: Recurrent ascites. FINDINGS: After explaining the procedure and answering all questions, sonographic survey shows a larg e amount of free fluid throughout the abdomen. Sterile technique, buffered local anesthesia, sonographic guidance, and a right lateral approach were used to carefully advance a 19-gauge Yueh nee dle and catheter into the free fluid. Catheter was left to drain a total volume of 5.9 L clear yellow liquid. Catheter was removed with small amount of fluid remaining. Patient tolerated the proce dure well and was dismissed in good condition. IMPRESSION: Technically successful sonographic guided paracentesis.
[2019-10-16 11:54] VITALS: BP 111/63; TEMP 98.6
== END 2019-10-16 11:20 | disposition home or self-care (01) ==
LOC: ULT 09:02
PROVIDERS: ATTEND Physician Assistant Medical
PROC: BW40ZZZ Ultrasonography of Abdomen (ICD-10-PCS; principal; 2019-10-16)
PROC: 0W9G3ZZ Drainage of Peritoneal Cavity, Percutaneous Approach (ICD-10-PCS; principal; 2019-10-16)
DX: K70.31 Alcoholic cirrhosis of liver with ascites (principal); I10 Essential (primary) hypertension; K21.9 Gastro-esophageal reflux disease without esophagitis; D64.9 Anemia, unspecified; F41.9 Anxiety disorder, unspecified; F32.9 Major depressive disorder, single episode, unspecified; Z79.899 Other long term (current) drug therapy
CPT/HCPCS: 49083; 80048; P9047

== ENCOUNTER 2019-10-21 11:47 | Emergency (ER) | payer OTHER, SELFPAY ==
[2019-10-21 13:04] LABS: Hemoglobin 9.4 g/dL (12.0-16.0); Mean Corpuscular HGB CONC 31.9 g/dL (32.0-36.0); Mean Corpuscular Hemoglobin 30.6 pg (27.0-31.0); Mean Corpuscular Volume 96.1 fL (78.0-98.0); Mean Platelet Volume 7.1 fL (7.4-10.4); Platelet Count 130 thou/uL (130-400); RBC Distribution Width 17.5 % (11.5-14.5); Red Blood Cell (RBC) Count 3.08 mill/uL (4.20-5.40); White Blood Cell (WBC) Count 7.4 thou/uL (4.8-10.8)
[2019-10-21 13:05] LABS: INR-International Normal Ratio 1.8; PTT 39.1 SEC (22.9-36.1)
[2019-10-21 13:24] LABS: ALT (SGPT) 22 U/L (8-55); AST (SGOT) 38 U/L (5-34); Albumin 2.9 g/dL (3.5-5.0); Alkaline Phosphatase 141 U/L (40-110); Anion Gap 10 mmol/L (10-20); BUN (Urea Nitrogen) 8 mg/dL (9.8-20.1); Bilirubin, Total 2.7 mg/dL (0.2-1.2); Calc. Creatinine Clearance 0 mL/min (70-130); Calcium 8.4 mg/dL (7.8-10.44); Carbon Dioxide 23 mmol/L (22-29); Chloride 99 mmol/L (98-107); Estimated GFR-MDRD 66; Glucose 95 mg/dL (70-105); Lipase 42 U/L (8-78); Potassium 4.2 mmol/L (3.5-5.1); Protein, Total 6.9 g/dL (6.0-8.3); Sodium 128 mmol/L (136-145)
[2019-10-21] MEDS ORDERED: Albumin 25% 25 GM/100 ML BOT IVPB SCH (13:30)
[2019-10-21 13:31] LABS: Anisocytosis SLIGHT = 6-15 cells (100X) (0-5/hpf); Band 1 % (5-11); Eosinophils 2 % (0-10); Lymphocytes 19 % (21-51); MDiff Complete? YES; Monocytes 10 % (0-10); Neutrophil 68 % (42-75); Ovalocytes SLIGHT = 2-5 cells (100X) (0-1/hpf); Platelet Morphology Comment Appears Adequate; Polychromasia SLIGHT = 2-3 cells (100X) (0-2/hpf)
[2019-10-21] MEDS ORDERED: Morphine 4 MG/ML VIAL ONE ×3 (14:29→14:59)
== END 2019-10-21 17:13 | disposition home or self-care (01) ==
LOC: ERS 11:47
DX: R18.8 Other ascites (principal); K21.9 Gastro-esophageal reflux disease without esophagitis; I10 Essential (primary) hypertension; Z79.899 Other long term (current) drug therapy
CPT/HCPCS: 49082; 80053; 83690; 85025; 85610; 85730; 87070; 87205; 96365; 96366; 96375; J2270; P9047

== ENCOUNTER 2019-10-23 08:33 | Day surgery (SDC) | payer OTHER ==
[2019-10-23] MEDS ORDERED: Albumin 25% 100 ML ONE (09:15)
[2019-10-23] MEDS ORDERED: Sodium Bicarbonate 2.5 MEQ/5 ML VIAL ONE (09:15)
[2019-10-23 13:03] VITALS: BMI 27.4
--- NOTE | 2019-10-23 13:42 | ULT ---
Ultrasound-guided paracentesis: 10/23/2019 HISTORY: Symptomatic ascites FINDINGS: Informed consent obtained prior to the procedure. Preprocedural imaging demonstrated signif icant ascites throughout the abdomen and pelvis. Left lower quadrantprepped and draped in normal sterile fashion and anesthetized with 1% buffered lid ocaine. With direct sonographic guidance, 5 [place] Islander Yueh catheter is advanced into the ascites and removal of the stylet yielded yellow fluid. 1.85 L were removed. The patient tolerated the procedure well. No postprocedural complications. IMPRESSION: Successful ultrasound-guided paracentesis yielding 1.85 L of yellow fluid.
== END 2019-10-23 10:25 | disposition home or self-care (01) ==
LOC: ULT 08:33
PROVIDERS: ATTEND Physician Assistant Medical
PROC: 0W9G3ZZ Drainage of Peritoneal Cavity, Percutaneous Approach (ICD-10-PCS; principal; 2019-10-23)
PROC: BW40ZZZ Ultrasonography of Abdomen (ICD-10-PCS; principal; 2019-10-23)
DX: K74.60 Unspecified cirrhosis of liver (principal); R18.8 Other ascites; I10 Essential (primary) hypertension; D64.9 Anemia, unspecified; F41.9 Anxiety disorder, unspecified; F32.9 Major depressive disorder, single episode, unspecified; J45.909 Unspecified asthma, uncomplicated
CPT/HCPCS: 49083; P9047

== ENCOUNTER 2019-10-24 15:48 | Emergency (ER) | payer OTHER ==
[2019-10-24 17:00] LABS: Hemoglobin 9.2 g/dL (12.0-16.0); Mean Corpuscular HGB CONC 31.6 g/dL (32.0-36.0); Mean Corpuscular Hemoglobin 30.1 pg (27.0-31.0); Mean Corpuscular Volume 95.3 fL (78.0-98.0); RBC Distribution Width 17.4 % (11.5-14.5); Red Blood Cell (RBC) Count 3.05 mill/uL (4.20-5.40); White Blood Cell (WBC) Count 5.9 thou/uL (4.8-10.8)
[2019-10-24 17:20] LABS: Mean Platelet Volume 8.1 fL (7.4-10.4); Platelet Count 119 thou/uL (130-400)
[2019-10-24 17:21] LABS: Band 3 % (5-11); Eosinophils 2 % (0-10); Hypochromia SLIGHT = 6-15 cells (100X) (0-5/hpf); Lymphocytes 24 % (21-51); MDiff Complete? YES; Monocytes 11 % (0-10); Neutrophil 59 % (42-75); Ovalocytes SLIGHT = 2-5 cells (100X) (0-1/hpf); Platelet Morphology Comment Appears Decreased; Polychromasia SLIGHT = 2-3 cells (100X) (0-2/hpf); Reactive Lymphocytes 1 % (0-10); Schistocytes SLIGHT = 2-5 cells (100X) (0-1/hpf); Target Cells MODERATE= 6-15 cells (100X) (0-1/hpf); Tear Drops SLIGHT = 2-5 cells (100X) (0-1/hpf)
[2019-10-24 17:23] LABS: ALT (SGPT) 19 U/L (8-55); AST (SGOT) 33 U/L (5-34); Albumin 3.4 g/dL (3.5-5.0); Alkaline Phosphatase 183 U/L (40-110); Anion Gap 12 mmol/L (10-20); BUN (Urea Nitrogen) 6 mg/dL (9.8-20.1); Bilirubin, Total 2.7 mg/dL (0.2-1.2); Calc. Creatinine Clearance 0 mL/min (70-130); Calcium 8.6 mg/dL (7.8-10.44); Carbon Dioxide 20 mmol/L (22-29); Chloride 102 mmol/L (98-107); Estimated GFR-MDRD 81; Globulin 3.5 g/dL (2.4-3.5); Glucose 99 mg/dL (70-105); Potassium 3.9 mmol/L (3.5-5.1); Protein, Total 6.9 g/dL (6.0-8.3); Sodium 130 mmol/L (136-145)
[2019-10-24] MEDS ORDERED: Morphine 4 MG/ML VIAL ONE (18:42)
--- NOTE | 2019-10-24 18:55 | CT ---
CT abdomen and pelvis noncontrast HISTORY: Right flank pain. COMPARISON: 06/12/2019. FINDINGS: Each renal collecting system, ureter, and urinary bladder are decompressed without stone ap parent. Lack of contrast limits evaluation for other abnormalities. Hyperdensities within the lower abdomen f avored to represent bowel content. There is distention of the stomach with fluid and particulate matter. Small hiatal hernia. Bilateral breast prostheses. Mild atelectasis at the lung bases. Stranding throughout the subcutaneous fat. Fluid within the deep subcutaneous tissues along each side of the abdomen favored to be related to the anasarca. Calcified granulomata at the lung bases. Spleen slightly enlarged at 12.7 cm. Cirrhotic appearance of the liver. Small amount of free fluid th roughout the abdomen and pelvis. Bowel not well evaluated. Appendix not inflamed. Gallbladder is decompressed. Degenerative changes lumbar spine. IMPRESSION: No CT evidence of urinary tract obstruction or calcification. Cirrhosis. Abdominal fluid has increased slightly. Stranding and fluid within the subcutaneous tissues with the appearance of some anasarca.
== END 2019-10-24 20:16 | disposition home or self-care (01) ==
LOC: ERS 15:48
DX: K74.60 Unspecified cirrhosis of liver (principal); R10.31 Right lower quadrant pain; I10 Essential (primary) hypertension; K21.9 Gastro-esophageal reflux disease without esophagitis; Z79.899 Other long term (current) drug therapy
CPT/HCPCS: 36415; 74176; 80053; 83605; 85025; 87040; 96372; J2270

== ENCOUNTER 2019-10-30 09:24 | Day surgery (SDC) | payer OTHER ==
[2019-10-29 14:05] VITALS: BMI 27.4
[2019-10-30] MEDS ORDERED: Lidocaine 1% PF 5 ML VIAL ONE (10:41)
[2019-10-30] MEDS ORDERED: Sodium Bicarbonate 2.5 MEQ/5 ML VIAL ONE (10:41)
[2019-10-30] MEDS ORDERED: Albumin 25% 200 ML ONE (10:41)
[2019-10-30 12:00] VITALS: BP 103/51; TEMP 98.4
--- NOTE | 2019-10-30 17:26 | ULT ---
Ultrasound-guided therapeutic paracentesis: DATE: 10/30/2019 HISTORY: 54-year-old female with asymptomatic ascites (abdominal distention) is due to alcoholic cirrhosis. TECHNIQUE: Signed informed consent obtained. Four-quadrant survey of abdominal cavity. Right lower quadrant skin prepped and draped in usual sterile fashion. 25-gauge needle used to apply buffered lidocaine. 5 Peruvian ithinksporteh catheter with stylette advanced into pocket of fluid in right lower quadrant. Stylette re moved. Catheter connected to mechanical suction device. After drainage, catheter removed. Patient tolerated procedure well. No complications. FINDINGS: Initial survey demonstrates moderate amount of ascites. A total of 3850 mL of nonhemorrhagic, straw-c olored ascites fluid was drained. Post procedure image of right lower quadrant demonstrates small amount of residual fluid in that pocket. IMPRESSION: Successful therapeutic paracentesis, with drainage of 3.85 L of ascites fluid.
== END 2019-10-30 11:45 | disposition home or self-care (01) ==
LOC: ULT 09:24
PROVIDERS: ATTEND Physician Assistant Medical
PROC: 0W9G3ZZ Drainage of Peritoneal Cavity, Percutaneous Approach (ICD-10-PCS; principal; 2019-10-30)
PROC: BW40ZZZ Ultrasonography of Abdomen (ICD-10-PCS; principal; 2019-10-30)
DX: K70.31 Alcoholic cirrhosis of liver with ascites (principal); I10 Essential (primary) hypertension; D64.9 Anemia, unspecified; F41.9 Anxiety disorder, unspecified; F32.9 Major depressive disorder, single episode, unspecified; J45.909 Unspecified asthma, uncomplicated; K21.9 Gastro-esophageal reflux disease without esophagitis; Z79.899 Other long term (current) drug therapy; Z91.011 Allergy to milk products
CPT/HCPCS: 49083; J2001; P9047

== ENCOUNTER 2019-11-06 10:34 | Day surgery (SDC) | payer OTHER ==
[2019-11-05 14:14] VITALS: BMI 27.4
[2019-11-06] MEDS ORDERED: Sodium Bicarbonate 2.5 MEQ/5 ML VIAL ONE (10:51)
[2019-11-06] MEDS ORDERED: Fentanyl 100 MCG/2 ML VIAL ONE (10:51)
[2019-11-06] MEDS ORDERED: Lidocaine 1% PF 5 ML VIAL ONE (10:52)
--- NOTE | 2019-11-06 12:01 | ULT ---
PREPROCEDURE DIAGNOSIS: Ascites POST PROCEDURE DIAGNOSIS: Same PROCEDURE: Ultrasound-guided paracentesis STAFF RESEARCH ASSOCIATE: Sandra ANESTHESIA: 6 mL of buffered 1% lidocaine. SPECIMEN: 3.1 L of straw-colored fluid TECHNIQUE: Prior to the procedure, the risks and benefits of an ultrasound guided paracentesis were explained to the patient which consented fully to the procedure. The area of the largest fluid collection was seen in the right lower quadrant of the abdomen. This a melissa was prepped and draped in the usual sterile fashion. Lidocaine was used to anesthetize the skin and soft tissues down towards the peritoneal cavity. The p eritoneum was anesthetized. A small skin incision was made for passage of the Align[place]eh needle and catheter. This device was then placed using ultrasound guidance into the peritoneal cavity. The needle was removed after return of fluid. The catheter was then connected to multiple Vacutainer bottles. A total of 3.1 L was removed. No residual fluid is seen in this region of the peritoneal cavity. IMPRESSION: Status post successful ultrasound-guided paracentesis
== END 2019-11-06 11:50 | disposition home or self-care (01) ==
LOC: ULT 10:34
PROVIDERS: ATTEND Physician Assistant Medical
PROC: 0W9G3ZZ Drainage of Peritoneal Cavity, Percutaneous Approach (ICD-10-PCS; principal; 2019-11-06)
PROC: BW40ZZZ Ultrasonography of Abdomen (ICD-10-PCS; principal; 2019-11-06)
DX: K70.31 Alcoholic cirrhosis of liver with ascites (principal); K72.90 Hepatic failure, unspecified without coma; F10.10 Alcohol abuse, uncomplicated; I10 Essential (primary) hypertension; J45.909 Unspecified asthma, uncomplicated; K21.9 Gastro-esophageal reflux disease without esophagitis; F41.9 Anxiety disorder, unspecified; D64.9 Anemia, unspecified; Z79.899 Other long term (current) drug therapy; Z91.011 Allergy to milk products
CPT/HCPCS: 49083; J2001; J3010

== ENCOUNTER 2019-11-13 10:29 | Day surgery (SDC) | payer OTHER ==
[2019-11-12 11:32] VITALS: BMI 27.4
[2019-11-13] MEDS ORDERED: Albumin 25% 100 ML ONE (10:52)
[2019-11-13] MEDS ORDERED: Sodium Bicarbonate 2.5 MEQ/5 ML VIAL ONE (10:54)
[2019-11-13] MEDS ORDERED: Lidocaine 1% PF 5 ML VIAL ONE (11:14)
--- NOTE | 2019-11-13 11:44 | ULT ---
Exam: Ultrasound guided paracentesis HISTORY: Ascites COMPARISON: 11/06/2019 FINDINGS: Successful ultrasound-guided paracentesis. Total of 1.2 L of yellow color ascites was aspir ated. TECHNIQUE: Consent obtained reformatory ultrasound-guided paracentesis. Right lower quadrant was deem ed appropriate. Skin was prepped and draped in a sterile fashion. 1% lidocaine, buffered with sodium bicarbonate was used for local anesthesia. Under ultrasound guidance, a 5 Estonian 7 cm Yueh cat heter is advanced in the peritoneal space. A total of 1.2 L of yellow color ascites was aspirated. No immediate or postprocedural complications IMPRESSION: Successful ultrasound-guided paracentesis.
[2019-11-13] MEDS ORDERED: FLU VACC QS2019-20(6MOS UP)/PF 60 MCG/0.5 ML SYRINGE IM ONE (11:45)
[2019-11-13 12:25] VITALS: BP 116/62; TEMP 98.4
== END 2019-11-13 11:50 | disposition home or self-care (01) ==
LOC: ULT 10:29
PROVIDERS: ATTEND Physician Assistant Medical
PROC: BW40ZZZ Ultrasonography of Abdomen (ICD-10-PCS; principal; 2019-11-13)
PROC: 0W9G3ZZ Drainage of Peritoneal Cavity, Percutaneous Approach (ICD-10-PCS; principal; 2019-11-13)
DX: K70.31 Alcoholic cirrhosis of liver with ascites (principal); K72.90 Hepatic failure, unspecified without coma; J45.909 Unspecified asthma, uncomplicated; D64.9 Anemia, unspecified; I10 Essential (primary) hypertension; F41.9 Anxiety disorder, unspecified; F32.9 Major depressive disorder, single episode, unspecified; K21.9 Gastro-esophageal reflux disease without esophagitis; Z79.899 Other long term (current) drug therapy
CPT/HCPCS: 49083; J2001; P9047

== ENCOUNTER 2019-11-20 09:45 | Day surgery (SDC) | payer OTHER ==
[2019-11-20 10:04] LABS: Hemoglobin 9.3 g/dL (12.0-16.0); Mean Corpuscular HGB CONC 31.6 g/dL (32.0-36.0); Mean Corpuscular Hemoglobin 30.7 pg (27.0-31.0); Mean Corpuscular Volume 96.9 fL (78.0-98.0); Mean Platelet Volume 7.6 fL (7.4-10.4); Platelet Count 117 thou/uL (130-400); RBC Distribution Width 17.4 % (11.5-14.5); Red Blood Cell (RBC) Count 3.04 mill/uL (4.20-5.40); White Blood Cell (WBC) Count 4.6 thou/uL (4.8-10.8)
[2019-11-20 10:09] LABS: INR-International Normal Ratio 1.7; Prothrombin Time 20.2 SEC (12.0-14.7)
[2019-11-20 10:10] LABS: PTT 37.6 SEC (22.9-36.1)
[2019-11-20] MEDS ORDERED: Lidocaine 1% PF 5 ML VIAL ONE (10:17)
--- NOTE | 2019-11-20 11:07 | ULT ---
"PRELIMINARY REPORT" ULTRASOUND ABDOMEN LIMITED: CLINICAL HISTORY: Evaluate for ascites.. COMPARISON: 09/12/2020. FINDING: No significant free fluid in the abdomen. Small pockets of fluid are noted in the right hemiabdomen. However, not enough fluid to perform an ultrasound-guided paracentesis. IMPRESSION: Not enough fluid to perform an ultrasound-guided paracentesis. Transcribed Date/Time: 11/20/2019 3:59 PM
[2019-11-20 11:43] VITALS: BP 123/61; TEMP 98.4
== END 2019-11-20 11:10 | disposition home or self-care (01) ==
LOC: ULT 09:45
PROVIDERS: ATTEND Physician Assistant Medical
DX: K74.60 Unspecified cirrhosis of liver (principal); R18.8 Other ascites; D64.9 Anemia, unspecified; J45.909 Unspecified asthma, uncomplicated; I10 Essential (primary) hypertension; F41.9 Anxiety disorder, unspecified; F32.9 Major depressive disorder, single episode, unspecified; K21.9 Gastro-esophageal reflux disease without esophagitis
CPT/HCPCS: 36415; 76705; 85027; 85610; 85730; J2001

== ENCOUNTER 2019-11-27 10:21 | Day surgery (SDC) | payer OTHER ==
[2019-11-26 13:41] VITALS: BMI 27.4
[2019-11-27] MEDS ORDERED: Sodium Bicarbonate 2.5 MEQ/5 ML VIAL ONE (10:48)
[2019-11-27] MEDS ORDERED: methylPREDNISolone Sod Succ/PF 125 MG/2 ML VIAL ONE (10:48)
[2019-11-27] MEDS ORDERED: Lidocaine 1% PF 5 ML VIAL ONE (10:48)
[2019-11-27 11:47] VITALS: BP 111/57; TEMP 98.2
--- NOTE | 2019-11-27 11:48 | ULT ---
Ultrasound-guided paracentesis: HISTORY: Cirrhosis and ascites. FINDINGS: Informed consent obtained prior to the procedure. Preprocedural imaging demonstrated intrap eritoneal free fluid. An area was marked in the Right lower quadrant , and then meticulously prepped and draped in normal s terile fashion and anesthetized with 1% buffered lidocaine. With direct sonographic guidance, a 19-gauge needle and 5 Cymraes Yueh catheter were advanced into the abdomen. After the return of fluid, the catheter was advanced, and the needle was removed. Approximately 3.3 L of clear straw-colored fluid was aspirated. The introducer sheath was removed, a nd hemostasis was achieved with direct pressure. A dry sterile dressing was placed. The patient tolerated the procedure well and without immediate complication. IMPRESSION: Technically successful ultrasound-guided paracentesis.
== END 2019-11-27 11:30 | disposition home or self-care (01) ==
LOC: ULT 10:21
PROVIDERS: ATTEND Physician Assistant Medical
PROC: BW40ZZZ Ultrasonography of Abdomen (ICD-10-PCS; principal; 2019-11-27)
PROC: 0W9G3ZZ Drainage of Peritoneal Cavity, Percutaneous Approach (ICD-10-PCS; principal; 2019-11-27)
DX: K74.60 Unspecified cirrhosis of liver (principal); R18.8 Other ascites; I10 Essential (primary) hypertension; F41.9 Anxiety disorder, unspecified; F32.9 Major depressive disorder, single episode, unspecified; D64.9 Anemia, unspecified; Z79.899 Other long term (current) drug therapy
CPT/HCPCS: 49083; J2001; J2930

== ENCOUNTER 2019-12-04 09:39 | Day surgery (SDC) | payer OTHER ==
[2019-12-03 14:49] VITALS: BMI 27.4
[2019-12-04] MEDS ORDERED: Sodium Bicarbonate 2.5 MEQ/5 ML VIAL ONE (10:05)
[2019-12-04] MEDS ORDERED: Lidocaine 1% PF 5 ML VIAL ONE (10:20)
--- NOTE | 2019-12-04 11:19 | ULT ---
Exam: Ultrasound guided paracentesis HISTORY: Ascites COMPARISON: 11/27/2019 FINDINGS: Successful ultrasound-guided paracentesis. Total of 5 L of yellow color ascites was aspirat ed. TECHNIQUE: Consent obtained reformatory ultrasound-guided paracentesis. Right lower quadrant was deem ed appropriate. Skin was prepped and draped in a sterile fashion. 1% lidocaine, buffered with sodium bicarbonate was used for local anesthesia. Under ultrasound guidance, a 5 Mohawk 7 cm Yueh cat heter is advanced in the peritoneal space. A total of 5 L of yellow color ascites was aspirated. No immediate or postprocedural complications IMPRESSION: Successful ultrasound-guided paracentesis.
== END 2019-12-04 10:55 | disposition home or self-care (01) ==
LOC: ULT 09:39
PROVIDERS: ATTEND Physician Assistant Medical
PROC: BW40ZZZ Ultrasonography of Abdomen (ICD-10-PCS; principal; 2019-12-04)
PROC: 0W9G3ZZ Drainage of Peritoneal Cavity, Percutaneous Approach (ICD-10-PCS; principal; 2019-12-04)
DX: K74.60 Unspecified cirrhosis of liver (principal); R18.8 Other ascites; I10 Essential (primary) hypertension; F41.9 Anxiety disorder, unspecified; F32.9 Major depressive disorder, single episode, unspecified; D64.9 Anemia, unspecified; J45.909 Unspecified asthma, uncomplicated; K21.9 Gastro-esophageal reflux disease without esophagitis
CPT/HCPCS: 49083; J2001

== ENCOUNTER 2019-12-11 09:59 | Day surgery (SDC) | payer MEDICAID, OTHER ==
[2019-12-10 13:03] VITALS: BMI 27.4
[2019-12-11] MEDS ORDERED: Sodium Bicarbonate 2.5 MEQ/5 ML VIAL ONE (10:15)
[2019-12-11] MEDS ORDERED: Lidocaine 1% PF 5 ML VIAL ONE (10:15)
[2019-12-11 12:07] VITALS: BP 120/64; TEMP 98.6
--- NOTE | 2019-12-11 15:08 | ULT ---
Sonographic guided paracentesis HISTORY: Recurrent ascites. FINDINGS: After explaining the procedure and answering all questions, sonographic survey shows a larg e amount of free fluid throughout the abdomen. Sterile technique, buffered local anesthesia, sonographic guidance, and a right lateral approach were used to carefully advance a 19-gauge Yueh nee dle and catheter into the free fluid. Catheter was left to drain a total volume of 5.6 L slightly cloudy yellow liquid. Catheter was removed with minimal fluid remaining. Patient tolerated the proced ure well and was dismissed in good condition. IMPRESSION: Technically successful sonographic guided paracentesis.
== END 2019-12-11 11:35 | disposition home or self-care (01) ==
LOC: ULT 09:59
PROVIDERS: ATTEND Physician Assistant Medical
PROC: 0W9G3ZZ Drainage of Peritoneal Cavity, Percutaneous Approach (ICD-10-PCS; principal; 2019-12-11)
PROC: BW40ZZZ Ultrasonography of Abdomen (ICD-10-PCS; principal; 2019-12-11)
DX: K74.60 Unspecified cirrhosis of liver (principal); R18.8 Other ascites; I10 Essential (primary) hypertension; F41.9 Anxiety disorder, unspecified; F32.9 Major depressive disorder, single episode, unspecified; J45.909 Unspecified asthma, uncomplicated; Z79.899 Other long term (current) drug therapy
CPT/HCPCS: 49083; J2001

== ENCOUNTER 2019-12-18 09:55 | Day surgery (SDC) | payer MEDICAID, OTHER ==
[2019-12-17 11:38] VITALS: BMI 27.4
[~2019-12-18 09:55] MED LIST changes: +Albumin 25% 200 ML ONE
[2019-12-18] MEDS ORDERED: Sodium Bicarbonate 2.5 MEQ/5 ML VIAL ONE (10:09)
[2019-12-18] MEDS ORDERED: Lidocaine 1% PF 5 ML VIAL ONE (10:09)
[2019-12-18] MEDS ORDERED: Albumin 25% 200 ML ONE (10:09)
[2019-12-18 11:49] VITALS: BP 124/79; TEMP 98.2
--- NOTE | 2019-12-18 11:57 | ULT ---
Exam: Ultrasound guided paracentesis HISTORY: Ascites COMPARISON: 12/11/2019 FINDINGS: Successful ultrasound-guided paracentesis. Total of 1 L of yellow color ascites was aspirat ed. TECHNIQUE: Consent obtained reformatory ultrasound-guided paracentesis. Right lower quadrant was deem ed appropriate. Skin was prepped and draped in a sterile fashion. 1% lidocaine, buffered with sodium bicarbonate was used for local anesthesia. Under ultrasound guidance, a 5 Angolan 7 cm Yueh cat heter is advanced in the peritoneal space. A total of 1 L of yellow color ascites was aspirated. No immediate or postprocedural complications IMPRESSION: Successful ultrasound-guided paracentesis.
== END 2019-12-18 11:35 | disposition home or self-care (01) ==
LOC: ULT 09:55
PROVIDERS: ATTEND Physician Assistant Medical
PROC: 0W9G3ZZ Drainage of Peritoneal Cavity, Percutaneous Approach (ICD-10-PCS; principal; 2019-12-18)
DX: K70.31 Alcoholic cirrhosis of liver with ascites (principal); K72.90 Hepatic failure, unspecified without coma; F10.11 Alcohol abuse, in remission; I10 Essential (primary) hypertension; J45.909 Unspecified asthma, uncomplicated; K21.9 Gastro-esophageal reflux disease without esophagitis; Z79.899 Other long term (current) drug therapy
CPT/HCPCS: 49083; J2001; P9047

== ENCOUNTER 2019-12-19 15:54 | Emergency (ER) | payer MEDICAID ==
[2019-12-19 16:51] LABS: Mean Corpuscular HGB CONC 31.7 g/dL (32.0-36.0); Mean Corpuscular Hemoglobin 31.1 pg (27.0-31.0); Mean Corpuscular Volume 98.2 fL (78.0-98.0); Mean Platelet Volume 7.2 fL (7.4-10.4); Platelet Count 121 thou/uL (130-400); RBC Distribution Width 15.9 % (11.5-14.5); Red Blood Cell (RBC) Count 2.89 mill/uL (4.20-5.40); White Blood Cell (WBC) Count 5.9 thou/uL (4.8-10.8)
[2019-12-19 17:14] LABS: Band 5 % (5-11); Eosinophils 3 % (0-10); Hypochromia SLIGHT = 6-15 cells (100X) (0-5/hpf); Lymphocytes 26 % (21-51); MDiff Complete? YES; Macrocytosis SLIGHT = 6-15 cells (100X) (0-5/hpf); Monocytes 13 % (0-10); Neutrophil 48 % (42-75); Platelet Morphology Comment Appears Decreased; Polychromasia SLIGHT = 2-3 cells (100X) (0-2/hpf); Reactive Lymphocytes 1 % (0-10)
[2019-12-19 17:18] LABS: ALT (SGPT) 17 U/L (8-55); AST (SGOT) 32 U/L (5-34); Albumin 3.3 g/dL (3.5-5.0); Alkaline Phosphatase 187 U/L (40-110); Anion Gap 11 mmol/L (10-20); BUN (Urea Nitrogen) 6 mg/dL (9.8-20.1); Bilirubin, Total 3.2 mg/dL (0.2-1.2); Calc. Creatinine Clearance 0 mL/min (70-130); Calcium 8.5 mg/dL (7.8-10.44); Carbon Dioxide 25 mmol/L (22-29); Chloride 101 mmol/L (98-107); Estimated GFR-MDRD 74; Globulin 3.5 g/dL (2.4-3.5); Glucose 101 mg/dL (70-105); Lipase 31 U/L (8-78); Potassium 3.5 mmol/L (3.5-5.1); Protein, Total 6.8 g/dL (6.0-8.3); Sodium 133 mmol/L (136-145)
[2019-12-19] MEDS ORDERED: Morphine 4 MG/ML VIAL ONE ×2 (18:26→21:24)
[2019-12-19 18:39] LABS: INR-International Normal Ratio 1.8
[2019-12-19 20:12] LABS: Mean Corpuscular HGB CONC 32.9 g/dL (32.0-36.0); Mean Corpuscular Volume 97.3 fL (78.0-98.0); Mean Platelet Volume 7.2 fL (7.4-10.4); Platelet Count 108 thou/uL (130-400); RBC Distribution Width 15.6 % (11.5-14.5); Red Blood Cell (RBC) Count 2.82 mill/uL (4.20-5.40); White Blood Cell (WBC) Count 6.3 thou/uL (4.8-10.8)
--- NOTE | 2019-12-19 20:28 | CT ---
CT ANGIO OF ABDOMEN AND PELVIS PERFORMED WITH INTRAVENOUS CONTRAST ENHANCEMENT AND 3D RECONSTRUCTIONS : 12/19/19 HISTORY: Patient had a paracentesis performed yesterday. Complaining of abdominal pain and pain while breathin g. COMPARISON: Ultrasound paracentesis done yesterday and a CT study of 10/24/19. Bilateral breast augmentation is noted. Lung bases are clear of any infiltrative process. The liver, shows a cleft-like area within the right lobe. This is a stable finding as compared to the previous examination. It is not felt to represent any type of acute injury. The spleen, pancreas, an d gallbladder regions appear unremarkable other than mild gallbladder distention. Right and left adrenal glands are normal. Right and left kidneys are normal in size. Some moderate as cites is demonstrated. There is also prominent fluid density along the right lateral abdomen. Some of this fluid is between the abdominal musculature but the majority is subcutaneous. This is an asymmet veto appearance as compared to the left side and given the fact that the patient has had a right lower quadrant paracentesis, I would suspect that this presents leakage of fluid probably related to the p aracentesis. This fluid is of essentially the same density as the ascites. I do not see a definite ac tive bleeding site. Mild ascites is noted within the pelvis. IMPRESSION: Moderate ascites. There is also prominent asymmetric fluid seen within the right lateral abdominal mu scle layers and within the subcutaneous tissue. Given the asymmetry and the fact that the patient had a paracentesis on the right, this could indicate that there is a leakage of fluid related to the par acentesis itself. I do not see a definite source for active bleeding. POS: [facility]
[2019-12-19 20:38] LABS: Lymphocytes 31 % (21-51); MDiff Complete? YES; Monocytes 14 % (0-10); Neutrophil 55 % (42-75); Platelet Morphology Comment Appears Decreased
[2019-12-19] MEDS ORDERED: diphenhydrAMINE 50 MG/ML VIAL ONE (20:50)
== END 2019-12-19 21:31 | disposition home or self-care (01) ==
LOC: ERS 15:54
DX: R18.8 Other ascites (principal); K21.9 Gastro-esophageal reflux disease without esophagitis; I10 Essential (primary) hypertension; Z79.899 Other long term (current) drug therapy
CPT/HCPCS: 36415; 74174; 80053; 82140; 83690; 85025; 85610; 96374; 96375; 96376; J1200; J2270

== ENCOUNTER 2019-12-25 10:27 | Day surgery (SDC) | payer MEDICAID ==
[2019-12-24 13:38] VITALS: BMI 27.4
[2019-12-25] MEDS ORDERED: Sodium Bicarbonate 2.5 MEQ/5 ML VIAL ONE (10:39)
[2019-12-25] MEDS ORDERED: Lidocaine 1% PF 5 ML VIAL ONE (10:39)
[2019-12-25 12:03] VITALS: BP 126/63; TEMP 98.3
--- NOTE | 2019-12-25 14:41 | ULT ---
Exam: Ultrasound guided paracentesis HISTORY: Ascites COMPARISON: Prior dated December 18, 2019 FINDINGS: Successful ultrasound-guided paracentesis. Total of 3750 cc of normal appearingascites was aspirated. TECHNIQUE: Consent obtained reformatory ultrasound-guided paracentesis. Left lower quadrantwas deemed appropriate. Skin was prepped and draped in a sterile fashion. 1% lidocaine, buffered with sodium bicarbonate was used for local anesthesia. Under ultrasound guidance, a 5 Macedonian 7 cm Support Your Appeh catheter i s advanced in the peritoneal space. A total of 3750 cc of normal.ascites was aspirated. No immediate or postprocedural complications IMPRESSION: Successful ultrasound-guided paracentesis.
== END 2019-12-25 11:45 | disposition home or self-care (01) ==
LOC: ULT 10:27
PROVIDERS: ATTEND Physician Assistant Medical
PROC: BW40ZZZ Ultrasonography of Abdomen (ICD-10-PCS; principal; 2019-12-25)
PROC: 0W9G3ZZ Drainage of Peritoneal Cavity, Percutaneous Approach (ICD-10-PCS; principal; 2019-12-25)
DX: K70.31 Alcoholic cirrhosis of liver with ascites (principal); I10 Essential (primary) hypertension; F41.9 Anxiety disorder, unspecified; F32.9 Major depressive disorder, single episode, unspecified; K21.9 Gastro-esophageal reflux disease without esophagitis; J45.909 Unspecified asthma, uncomplicated; D64.9 Anemia, unspecified; Z79.899 Other long term (current) drug therapy
CPT/HCPCS: 49083; J2001

== ENCOUNTER → 2020-01-01 | Day surgery (SDC) | payer MEDICAID ==
[2019-12-31 13:02] VITALS: BMI 27.4
[~2020-01-01] MED LIST changes: -Albumin 25% 200 ML ONE; -FLU VACC QS2019-20(6MOS UP)/PF 60 MCG/0.5 ML SYRINGE IM ONE; +Lidocaine 1% PF 5 ML VIAL ONE; +Sodium Bicarbonate 2.5 MEQ/5 ML VIAL ONE
--- NOTE | 2020-01-01 09:29 | ULT ---
EXAM: US Abdomen Limited CLINICAL HISTORY: Evaluate ascites for possible paracentesis. COMPARISON: 12/25/2019 FINDINGS: Targeted sonographic imaging of all 4 quadrants demonstrates a small amount of ascites. The amount of ascites is significantly reduced when compared most recent prior exam. IMPRESSION: Small amount of ascites. Currently, ultrasound paracentesis will not be performed.
== END ==
LOC: ULT 08:29
PROVIDERS: ATTEND Physician Assistant Medical
DX: K74.60 Unspecified cirrhosis of liver (principal); R18.8 Other ascites; I10 Essential (primary) hypertension; J45.909 Unspecified asthma, uncomplicated; F41.9 Anxiety disorder, unspecified; F32.9 Major depressive disorder, single episode, unspecified; K21.9 Gastro-esophageal reflux disease without esophagitis
CPT/HCPCS: 76705; J2001

== ENCOUNTER 2020-01-08 08:32 | Day surgery (SDC) | payer MEDICAID, OTHER ==
[2020-01-07 13:28] VITALS: BMI 27.4
[2020-01-08] MEDS ORDERED: Sodium Bicarbonate 2.5 MEQ/5 ML VIAL ONE (08:36)
[2020-01-08] MEDS ORDERED: Lidocaine 1% PF 5 ML VIAL ONE (08:36)
[2020-01-08] MEDS ORDERED: Albumin 25% 200 ML ONE (10:06)
[2020-01-08 10:51] VITALS: BP 120/66; TEMP 98.4
--- NOTE | 2020-01-08 12:11 | ULT ---
Ultrasound-guided paracentesis: HISTORY: Cirrhosis and recurrent ascites FINDINGS: Informed consent obtained prior to the procedure. Preprocedural imaging demonstrated intrap eritoneal free fluid. An area was marked in the right mid abdomen in the mid axillary line, and then meticulously prepped a nd draped in normal sterile fashion and anesthetized with 1% buffered lidocaine. With direct sonographic guidance, a 19-gauge needle and 5 Malagasy Yueh catheter were advanced into the abdomen. After the return of fluid, the catheter was advanced, and the needle was removed. Approximately 4 L of slightly cloudy yellow fluid was aspirated. The introducer sheath was removed, a nd hemostasis was achieved with direct pressure. A dry sterile dressing was placed. The patient tolerated the procedure well and without immediate complication. IMPRESSION: Technically successful ultrasound-guided paracentesis.
== END 2020-01-08 09:50 | disposition home or self-care (01) ==
LOC: ULT 08:32
PROVIDERS: ATTEND Physician Assistant Medical
PROC: 0W9G3ZZ Drainage of Peritoneal Cavity, Percutaneous Approach (ICD-10-PCS; principal; 2020-01-08)
PROC: BW40ZZZ Ultrasonography of Abdomen (ICD-10-PCS; principal; 2020-01-08)
DX: K74.60 Unspecified cirrhosis of liver (principal); R18.8 Other ascites; I10 Essential (primary) hypertension; J45.909 Unspecified asthma, uncomplicated; D64.9 Anemia, unspecified; F41.9 Anxiety disorder, unspecified; F32.9 Major depressive disorder, single episode, unspecified; Z79.899 Other long term (current) drug therapy
CPT/HCPCS: 49083; J2001; P9047

== ENCOUNTER 2020-01-20 10:04 | Day surgery (SDC) | payer MEDICAID, OTHER ==
[2020-01-20 08:33] VITALS: BMI 27.4
[2020-01-20] MEDS ORDERED: Lidocaine 1% PF 5 ML VIAL ONE (10:10)
[2020-01-20] MEDS ORDERED: Sodium Bicarbonate 2.5 MEQ/5 ML VIAL ONE (10:10)
[2020-01-20 10:25] LABS: Hemoglobin 9.7 g/dL (12.0-16.0); Mean Corpuscular HGB CONC 31.3 g/dL (32.0-36.0); Mean Corpuscular Hemoglobin 30.8 pg (27.0-31.0); Mean Corpuscular Volume 98.2 fL (78.0-98.0); Mean Platelet Volume 7.2 fL (7.4-10.4); Platelet Count 106 thou/uL (130-400); RBC Distribution Width 15.4 % (11.5-14.5); Red Blood Cell (RBC) Count 3.17 mill/uL (4.20-5.40); White Blood Cell (WBC) Count 4.4 thou/uL (4.8-10.8)
[2020-01-20 10:29] LABS: INR-International Normal Ratio 1.5
--- NOTE | 2020-01-20 10:46 | ULT ---
EXAM: US Abdomen Limited CLINICAL HISTORY: Ascites. Evaluate for possible paracentesis. COMPARISON: 01/01/2020 FINDINGS: Small moderate fluid, predominantly in the right upper quadrant. The amount of fluid does not warrant ultrasound-guided paracentesis at this time. IMPRESSION: Small amount of fluid, not warranting paracentesis at this time.
[2020-01-20 10:47] VITALS: BP 119/60; TEMP 98.2
[2020-01-20 10:47] LABS: Albumin 3.3 g/dL (3.5-5.0); Eosinophils 1 % (0-10); Hypochromia SLIGHT = 6-15 cells (100X) (0-5/hpf); Lymphocytes 26 % (21-51); MDiff Complete? YES; Monocytes 10 % (0-10); Neutrophil 61 % (42-75); Platelet Morphology Comment Appears Decreased; Polychromasia SLIGHT = 2-3 cells (100X) (0-2/hpf); Reactive Lymphocytes 1 % (0-10)
[2020-01-20 10:48] LABS: Chloride 104 mmol/L (98-107)
[2020-01-20 10:49] LABS: Calcium 8.7 mg/dL (7.8-10.44); Sodium 134 mmol/L (136-145)
[2020-01-20 10:50] LABS: Globulin 3.6 g/dL (2.4-3.5); Glucose 174 mg/dL (70-105); Protein, Total 6.9 g/dL (6.0-8.3)
[2020-01-20 10:51] LABS: Anion Gap 12 mmol/L (10-20); Bilirubin, Total 2.8 mg/dL (0.2-1.2); Carbon Dioxide 22 mmol/L (22-29)
[2020-01-20 10:52] LABS: Alkaline Phosphatase 189 U/L (40-110)
[2020-01-20 10:53] LABS: Calc. Creatinine Clearance 87 mL/min (70-130); Estimated GFR-MDRD 68
[2020-01-20 10:54] LABS: BUN (Urea Nitrogen) 8 mg/dL (9.8-20.1)
[2020-01-20 10:55] LABS: ALT (SGPT) 18 U/L (8-55); AST (SGOT) 32 U/L (5-34)
== END 2020-01-20 10:35 | disposition home or self-care (01) ==
LOC: ULT 10:04
PROVIDERS: ATTEND Physician Assistant Medical
DX: K70.31 Alcoholic cirrhosis of liver with ascites (principal); K72.90 Hepatic failure, unspecified without coma; D64.9 Anemia, unspecified; F10.10 Alcohol abuse, uncomplicated; K21.9 Gastro-esophageal reflux disease without esophagitis; I10 Essential (primary) hypertension; F41.9 Anxiety disorder, unspecified; J45.909 Unspecified asthma, uncomplicated; Z79.899 Other long term (current) drug therapy; Z91.011 Allergy to milk products
CPT/HCPCS: 76705; 80053; 85025; 85610; J2001

== ENCOUNTER 2020-01-24 19:50 | Emergency (ER) | payer MEDICAID ==
[~2020-01-24 19:50] MED LIST changes: +Iopamidol 370 76% 100 ML VIAL ONE; -Lidocaine 1% PF 5 ML VIAL ONE; -Sodium Bicarbonate 2.5 MEQ/5 ML VIAL ONE
[2020-01-24 20:28] LABS: Hemoglobin 9.7 g/dL (12.0-16.0); Mean Corpuscular HGB CONC 31.8 g/dL (32.0-36.0); Mean Corpuscular Hemoglobin 30.9 pg (27.0-31.0); Mean Corpuscular Volume 97.4 fL (78.0-98.0); Mean Platelet Volume 7.6 fL (7.4-10.4); Platelet Count 116 thou/uL (130-400); RBC Distribution Width 15.3 % (11.5-14.5); Red Blood Cell (RBC) Count 3.15 mill/uL (4.20-5.40); White Blood Cell (WBC) Count 5.6 thou/uL (4.8-10.8)
[2020-01-24 20:40] LABS: Eosinophils 4 % (0-10); Lymphocytes 26 % (21-51); MDiff Complete? YES; Monocytes 20 % (0-10); Neutrophil 49 % (42-75); Platelet Morphology Comment Appears Decreased
[2020-01-24 20:48] LABS: ALT (SGPT) 20 U/L (8-55); AST (SGOT) 35 U/L (5-34); Albumin 3.3 g/dL (3.5-5.0); Alkaline Phosphatase 183 U/L (40-110); Anion Gap 13 mmol/L (10-20); BUN (Urea Nitrogen) 7 mg/dL (9.8-20.1); Calc. Creatinine Clearance 0 mL/min (70-130); Calcium 8.8 mg/dL (7.8-10.44); Carbon Dioxide 22 mmol/L (22-29); Chloride 106 mmol/L (98-107); Estimated GFR-MDRD 73; Globulin 3.7 g/dL (2.4-3.5); Glucose 104 mg/dL (70-105); Lipase 39 U/L (8-78); Sodium 137 mmol/L (136-145)
[2020-01-24] MEDS ORDERED: Ondansetron PF 4 MG/2 ML Vial ONE (21:14)
[2020-01-24] MEDS ORDERED: Morphine 4 MG/ML VIAL ONE ×2 (21:14→22:21)
[2020-01-24 21:32] LABS: Bacteria/HPF None Seen HPF (None Seen); Bilirubin Negative (Negative); Blood, Urine Negative (Negative); Clarity Clear (Clear); Glucose, Urine (Dipstick) Normal (Negative); Leukocyte 25 Leu/uL (Negative); Mucous/LPF Rare LPF (<2+); Nitrite Negative (Negative); Protein, Urine (Dipstick) Negative (Neg-Trace); RBC/HPF 0-3 HPF (0-3); Renal Epithelial 0-3 HPF (None Seen); Squamous Epithelial 0-3 HPF (0-3)
--- NOTE | 2020-01-24 21:44 | CT ---
CT ABDOMEN AND PELVIS WITH CONTRAST: 01/24/20 HISTORY: Abdominal pain. COMPARISON: CT of the abdomen and pelvis 12/19/19. FINDINGS: Lung bases are clear. Moderate paraesophageal varices. Normal proximal small bowel rotation. Multiple splenic granulomas. The liver is small and cirrhotic. The portal vein is patent. Moderate volume ascites. No dilated loops of large or small bowel. Reactive retroperitoneal periaortic lymph nodes. No hydronephrosis. Chronic superior end plate compre ssion deformity at T12. IMPRESSION: 1. Moderate volume ascites. 2. Hepatic cirrhosis with patent portal vein and mild paraesophageal and perigastric varices. 3. Interval resolution of right abdominal sidewall ascitic leak. POS: [facility]
[2020-01-24 21:50] LABS: PTT 40.9 SEC (22.9-36.1); Prothrombin Time 22.9 SEC (12.0-14.7)
== END 2020-01-24 23:03 | disposition home or self-care (01) ==
LOC: ERS 19:50
DX: R18.8 Other ascites (principal); K21.9 Gastro-esophageal reflux disease without esophagitis; K74.60 Unspecified cirrhosis of liver; I10 Essential (primary) hypertension; Z79.899 Other long term (current) drug therapy
CPT/HCPCS: 74177; 80053; 81003; 81015; 82140; 83690; 85025; 85610; 85730; 96374; 96375; 96376; J2270; J2405; Q9967

== ENCOUNTER 2020-01-28 05:57 | Day surgery (SDC) | payer MEDICAID, OTHER ==
[2020-01-27 13:03] VITALS: BMI 27.4
[2020-01-28] MEDS ORDERED: Morphine 2 MG/ML SYRINGE ONE (10:17)
[2020-01-28] MEDS ORDERED: PROPOFOL 200 MG/20 ML VIAL ONE (11:00)
--- NOTE | 2020-01-28 15:44 | OP ---
DATE OF PROCEDURE: 01/28/2020 PREPROCEDURE DIAGNOSES: 1. Recurrent anemia. 2. Obstipation and constipation with recurrent abdominal pain with two visits to the emergency room recently. 3. Family history of mother with colorectal cancer. 4. Cirrhosis. History of recurrent Snehal-Crews tears in the past, but none recently. Last esophagogastroduodenoscopy was a year ago with grade 1 varices. 5. This procedure was initially scheduled for late February, but with recurrent visits to the emergency room, procedure was moved up. POSTPROCEDURE DIAGNOSES: 1. Two columns of grade 1 varices in the esophagus, no stigmata of bleeding. 2. Mild portal gastropathy in the body of the stomach with no bleeding or oozing. 3. Otherwise normal esophagogastroduodenoscopy. 4. Colonoscopy notable for no polyps or diverticular disease. Small internal hemorrhoids with prominent rectal veins with no bleeding. 5. Edema in the transverse and right colon, consistent with portal hypertension. 6. 3 cm hiatal hernia on the upper endoscopy. RECOMMENDATIONS: 1. Repeat colonoscopy in 5 years. 2. Start iron supplementation as some component of her anemia is probably related to iron deficiency based on her previous labs with some loss of blood from the portal hypertensive gastropathy. 3. Follow up in my office in two weeks. 4. Keep appointment for paracentesis tomorrow. ANESTHESIA: TIVA. PROCEDURE IN DETAIL: After the patient was informed of risks, benefits, and possible complications of endoscopy including perforation, bleeding, reaction to medication, and aspiration, informed consent was obtained. The patient was brought to endoscopy suite, where she was sedated in gradual fashion. Once she was comfortable, bite block was placed inside the orifice. The endoscope was advanced through the esophagus, stomach, and second and third portions of the duodenum and slowly removed. The esophagus was noted for two columns of grade 2 varices. No stigmata of bleeding. There was no evidence of esophagitis. There was a small hiatal hernia present. There was no evidence of bleeding, Snehal-Crews tears, or Rangel's. Forward and retroflexed views were normal. The grade 2 portal hypertensive gastropathy with mucosa of the body of the stomach. In the antrum, there was a small erosion, nonbleeding, 1 to 2 mm in size. The duodenal bulb was normal. Second and third portions were normal as well. The scope was then removed. The patient tolerated the procedure well without complications. RECOMMENDATIONS: Iron supplementation daily. PPI therapy. Avoid NSAIDs. COLONOSCOPY PROCEDURE: After the patient was turned to the room, the rectal exam was performed. The endoscope was advanced through the anal canal and through the colon. The cecum was identified by ileocecal valve and appendiceal orifice. The appendiceal orifice was identified by transillumination and the appearance of the IC valve and the appendix. Retroflexed views in the cecum were normal. The scope was then slowly removed. It was difficult to fully distend the colon as there was mucosal edema in the wall of the colon from the transverse colon to the cecum, consistent with her history of portal hypertension. There were no polyps, masses, or lesions. Endoscope was slowly removed. There was no diverticulosis. Rectal exam revealed some prominent veins in the rectum and hemorrhoids. There was no active bleeding. Endoscope was removed. The patient tolerated the procedure well with no complications. Job ID: [id number]
== END 2020-01-28 12:30 | disposition home or self-care (01) ==
LOC: SDC 05:57
PROVIDERS: ATTEND Internal Medicine Gastroenterology
PROC: 0DJ08ZZ Inspection of Upper Intestinal Tract, Via Natural or Artificial Opening Endoscopic (ICD-10-PCS; principal; 2020-01-28)
PROC: 0DJD8ZZ Inspection of Lower Intestinal Tract, Via Natural or Artificial Opening Endoscopic (ICD-10-PCS; principal; 2020-01-28)
DX: D64.9 Anemia, unspecified (principal); K76.6 Portal hypertension; K70.30 Alcoholic cirrhosis of liver without ascites; I85.10 Secondary esophageal varices without bleeding; K31.89 Other diseases of stomach and duodenum; K25.9 Gastric ulcer, unspecified as acute or chronic, without hemorrhage or perforation; K44.9 Diaphragmatic hernia without obstruction or gangrene; K64.8 Other hemorrhoids; K72.90 Hepatic failure, unspecified without coma; K59.00 Constipation, unspecified; F10.11 Alcohol abuse, in remission; F41.9 Anxiety disorder, unspecified; I10 Essential (primary) hypertension; K21.9 Gastro-esophageal reflux disease without esophagitis; Z80.0 Family history of malignant neoplasm of digestive organs; Z79.899 Other long term (current) drug therapy; Z91.011 Allergy to milk products
CPT/HCPCS: J2270; J2704

== ENCOUNTER 2020-01-29 10:05 | Emergency (ER) | payer OTHER ==
[2020-01-29 11:09] LABS: Hemoglobin 10.1 g/dL (12.0-16.0); Mean Corpuscular HGB CONC 31.5 g/dL (32.0-36.0); Mean Corpuscular Hemoglobin 30.4 pg (27.0-31.0); Mean Corpuscular Volume 96.6 fL (78.0-98.0); Mean Platelet Volume 7.7 fL (7.4-10.4); Platelet Count 92 thou/uL (130-400); RBC Distribution Width 15.4 % (11.5-14.5); Red Blood Cell (RBC) Count 3.32 mill/uL (4.20-5.40); White Blood Cell (WBC) Count 3.8 thou/uL (4.8-10.8)
[2020-01-29] MEDS ORDERED: Iopamidol 370 76% 100 ML VIAL ONE (11:09)
[2020-01-29] MEDS ORDERED: Morphine 2 MG/ML SYRINGE ONE ×2 (11:25→12:48)
[2020-01-29 11:31] LABS: ALT (SGPT) 21 U/L (8-55); AST (SGOT) 48 U/L (5-34); Albumin 3.2 g/dL (3.5-5.0); Alkaline Phosphatase 142 U/L (40-110); Anion Gap 11 mmol/L (10-20); BUN (Urea Nitrogen) 6 mg/dL (9.8-20.1); Bilirubin, Total 3.1 mg/dL (0.2-1.2); Calc. Creatinine Clearance 0 mL/min (70-130); Calcium 8.5 mg/dL (7.8-10.44); Carbon Dioxide 18 mmol/L (22-29); Chloride 101 mmol/L (98-107); Estimated GFR-MDRD 73; Globulin 3.6 g/dL (2.4-3.5); Glucose 114 mg/dL (70-105); Potassium 4.1 mmol/L (3.5-5.1); Protein, Total 6.8 g/dL (6.0-8.3); Sodium 126 mmol/L (136-145)
[2020-01-29 11:41] LABS: Band 7 % (5-11); Lymphocytes 30 % (21-51); MDiff Complete? YES; Macrocytosis SLIGHT = 6-15 cells (100X) (0-5/hpf); Monocytes 16 % (0-10); Neutrophil 47 % (42-75); Platelet Morphology Comment Appears Decreased; Polychromasia SLIGHT = 2-3 cells (100X) (0-2/hpf)
--- NOTE | 2020-01-29 12:08 | RAD ---
CHEST 1 VIEW: Date: 01/29/2020 HISTORY: Fever. COMPARISON: 02/01/2019. FINDINGS: Heart size is within normal limits. The lungs are clear of acute process. IMPRESSION: No significant acute intrathoracic disease. Stable from prior study. POS: [facility]
[2020-01-29 12:59] LABS: BF Color Yellow; Body Fluid Source Peritoneal Fluid; Clarity Hazy (Clear); RBC Count-Automated (BF) 316 /cumm; Tube # 1; WBC/Nucleated-Auto (BF) 283 uL
[2020-01-29 13:13] LABS: BF Segmented Neutrophils 8 %; Cell Count Non Hematic 87 %; Lymphocytes 5 %
--- NOTE | 2020-01-29 13:53 | CT ---
CT arteriogram chest with IV contrast and 3-D imaging HISTORY: Chest pain. Dyspnea. COMPARISON: 02/01/2019. FINDINGS: There is good contrast opacification pulmonary arteries and thoracic aorta with normal bran patric great vessels at the aortic arch. Scattered very mild areas of patchy atelectasis. Calcified granulomata are consistent with healed granulomatous disease. No lobar consolidation. Prominence of the azygos vein is likely related to portal venous hypertension. Partially visualized l iver has a cirrhotic appearance. Free fluid within the upper abdomen again demonstrated. Hiatal hernia and circumferential wall thickening of the distal esophagus similar in appearance to th e prior study. IMPRESSION : No CT evidence of pulmonary embolus. Chronic-type findings are stable.
[2020-01-29 14:17] LABS: Lactic Acid 2.1 mmol/L (0.5-2.2)
[2020-01-29 14:26] LABS: Bacteria/HPF None Seen HPF (None Seen); Bilirubin Negative (Negative); Blood, Urine Negative (Negative); Clarity Clear (Clear); Glucose, Urine (Dipstick) Normal (Negative); Leukocyte 25 Leu/uL (Negative); Nitrite Negative (Negative); Protein, Urine (Dipstick) Negative (Neg-Trace); RBC/HPF 0-3 HPF (0-3); Squamous Epithelial 0-3 HPF (0-3); Urobilinogen Normal mg/dL (Less than 2); WBC/HPF 0-3 HPF (0-3)
== END 2020-01-29 14:52 | disposition home or self-care (01) ==
LOC: ERS 10:05
DX: J10.1 Influenza due to other identified influenza virus with other respiratory manifestations (principal); K21.9 Gastro-esophageal reflux disease without esophagitis; I10 Essential (primary) hypertension; Z79.899 Other long term (current) drug therapy
CPT/HCPCS: 36415; 49082; 71045; 71275; 80053; 81003; 81015; 83605; 85025; 85060; 85379; 87040; 87070; 87205; 87635; 87804; 89051; 96374; 96376; J2270; Q9967; U0003

== ENCOUNTER → 2020-01-29 | Day surgery (SDC) | payer MEDICAID, OTHER ==
[2020-01-29 09:48] LABS: INR-International Normal Ratio 1.9; Prothrombin Time 21.6 SEC (12.0-14.7)
[2020-01-29 09:49] LABS: PTT 40.9 SEC (22.9-36.1)
== END ==
LOC: ULT 09:33
PROVIDERS: ATTEND Physician Assistant Medical
DX: K70.31 Alcoholic cirrhosis of liver with ascites (principal); K72.90 Hepatic failure, unspecified without coma; D64.9 Anemia, unspecified
CPT/HCPCS: 36415; 85610; 85730

== ENCOUNTER 2020-02-04 12:24 | Day surgery (SDC) | payer MEDICAID, OTHER ==
[2020-02-03 13:14] VITALS: BMI 27.4
[2020-02-04] MEDS ORDERED: Lidocaine 1% PF 5 ML VIAL ONE (12:27)
[2020-02-04] MEDS ORDERED: Sodium Bicarbonate 2.5 MEQ/5 ML VIAL ONE (12:27)
--- NOTE | 2020-02-04 13:11 | ULT ---
Ultrasound abdomen limited: 02/04/2020 HISTORY: 54-year-old female with ascites. Evaluate for possible paracentesis. TECHNIQUE: Four-quadrant survey of intra-abdominal contents. FINDINGS: There is a small volume of free fluid within the peritoneal cavity, similar to 01/20/2020, not enough for therapeutic paracentesis. IMPRESSION: Small volume of ascites. Paracentesis post bone.
== END 2020-02-04 13:10 | disposition home or self-care (01) ==
LOC: ULT 12:24
PROVIDERS: ATTEND Physician Assistant Medical
DX: K70.31 Alcoholic cirrhosis of liver with ascites (principal); K72.90 Hepatic failure, unspecified without coma; J45.909 Unspecified asthma, uncomplicated; I10 Essential (primary) hypertension; K21.9 Gastro-esophageal reflux disease without esophagitis; F10.11 Alcohol abuse, in remission; F41.9 Anxiety disorder, unspecified; Z79.2 Long term (current) use of antibiotics; Z79.899 Other long term (current) drug therapy
CPT/HCPCS: 76705; J2001

== ENCOUNTER 2020-02-12 09:49 | Day surgery (SDC) | payer OTHER ==
[2020-02-12] MEDS ORDERED: Lidocaine 1% PF 5 ML VIAL ONE (10:08)
[2020-02-12] MEDS ORDERED: Sodium Bicarbonate 2.5 MEQ/5 ML VIAL ONE (10:08)
--- NOTE | 2020-02-12 10:52 | ULT ---
EXAM: US Abdomen Limited CLINICAL HISTORY: Ascites. Evaluate for possible ultrasound-guided paracentesis. COMPARISON: 02/04/2020, 01/20/2020 FINDINGS: Small amount of ascites is noted in the abdomen. The amount of fluid is not necessarily war rant a ultrasound-guided paracentesis at this time. Patient is amenable to waiting and reassessing next week. . IMPRESSION: Small amount of ascites, not obviously warranting ultrasound-guided paracentesis at this time.
[2020-02-12 11:03] VITALS: BP 116/67; TEMP 97.5
== END 2020-02-12 10:40 | disposition home or self-care (01) ==
LOC: ULT 09:49
PROVIDERS: ATTEND Physician Assistant Medical
DX: K74.60 Unspecified cirrhosis of liver (principal); R18.8 Other ascites; I10 Essential (primary) hypertension; F41.9 Anxiety disorder, unspecified; F32.9 Major depressive disorder, single episode, unspecified; J45.909 Unspecified asthma, uncomplicated; D64.9 Anemia, unspecified; I73.9 Peripheral vascular disease, unspecified
CPT/HCPCS: 76705; J2001

== ENCOUNTER 2020-02-18 12:43 | Day surgery (SDC) | payer OTHER ==
[2020-02-17 12:43] VITALS: BMI 27.4
[2020-02-18] MEDS ORDERED: Sodium Bicarbonate 2.5 MEQ/5 ML VIAL ONE (13:00)
[2020-02-18] MEDS ORDERED: Lidocaine 1% PF 5 ML VIAL ONE (13:01)
[2020-02-18] MEDS ORDERED: Albumin 25% 200 ML ONE (13:31)
[2020-02-18 14:43] VITALS: BP 119/62; TEMP 98.8
--- NOTE | 2020-02-18 14:49 | ULT ---
Sonographic guided paracentesis HISTORY: Recurrent ascites. FINDINGS: After explaining the procedure and answering all questions, sonographic survey shows a larg e amount of free fluid throughout the abdomen. Sterile technique, buffered local anesthesia, sonographic guidance, and a right lateral approach were used to carefully advance a 19-gauge Yueh needle and catheter into the free fluid. Catheter was left to drain a total volume of 5.4 L slightly cloudy yellow liquid. Catheter was removed with minima l fluid remaining. Patient tolerated the procedure well and was dismissed in good condition. IMPRESSION : Technically successful sonographic guided paracentesis.
== END 2020-02-18 14:25 | disposition home or self-care (01) ==
LOC: ULT 12:43
PROVIDERS: ATTEND Physician Assistant Medical
PROC: BW40ZZZ Ultrasonography of Abdomen (ICD-10-PCS; principal; 2020-02-18)
PROC: 0W9G3ZZ Drainage of Peritoneal Cavity, Percutaneous Approach (ICD-10-PCS; principal; 2020-02-18)
DX: K74.60 Unspecified cirrhosis of liver (principal); R18.8 Other ascites; J45.909 Unspecified asthma, uncomplicated; I10 Essential (primary) hypertension; F41.9 Anxiety disorder, unspecified; F32.9 Major depressive disorder, single episode, unspecified; I34.1 Nonrheumatic mitral (valve) prolapse; K76.7 Hepatorenal syndrome; Z79.899 Other long term (current) drug therapy
CPT/HCPCS: 49083; J2001; P9047

== ENCOUNTER → 2020-02-26 | Day surgery (SDC) | payer OTHER ==
[2020-02-25 13:41] VITALS: BMI 27.4
[~2020-02-26] MED LIST changes: +Albumin 25% 100 ML ONE; -Iopamidol 370 76% 100 ML VIAL ONE
[2020-02-26 10:18] LABS: Hemoglobin 11.5 g/dL (12.0-16.0); Mean Corpuscular HGB CONC 31.8 g/dL (32.0-36.0); Mean Corpuscular Hemoglobin 32.4 pg (27.0-31.0); Mean Platelet Volume 8.4 fL (7.4-10.4); Platelet Count 108 thou/uL (130-400); RBC Distribution Width 18.1 % (11.5-14.5); Red Blood Cell (RBC) Count 3.54 mill/uL (4.20-5.40); White Blood Cell (WBC) Count 4.8 thou/uL (4.8-10.8)
[2020-02-26 10:21] LABS: INR-International Normal Ratio 1.4; PTT 33.7 SEC (22.9-36.1); Prothrombin Time 16.9 sec (12.0-14.7)
[2020-02-26 10:39] LABS: Band 9 % (5-11); Eosinophils 3 % (0-10); Lymphocytes 17 % (21-51); MDiff Complete? YES; Metamyelocyte 1 % (0-0); Monocytes 12 % (0-10); Neutrophil 57 % (42-75); Platelet Morphology Comment Appears Decreased; Reactive Lymphocytes 1 % (0-10)
--- NOTE | 2020-02-26 11:32 | ULT ---
Ultrasound abdomen limited: 02/26/2020 HISTORY: 54-year-old female with ascites and abdominal distention presents for therapeutic paracentesis. FINDINGS: Four-quadrant survey of the abdomen demonstrates a small amount of free fluid in the right upper quad rant and right lower quadrant, a minimal amount of free fluid in the left lower quadrant, and almost no fluid in the left upper quadrant. The amount of fluid is certainly less than on 02/18/2020. IMPRESSION: Small volume of ascites, not enough for therapeutic paracentesis. The paracentesis is canceled/postpo deepa.
== END ==
LOC: ULT 10:04
PROVIDERS: ATTEND Physician Assistant Medical
DX: R18.8 Other ascites (principal); Z79.899 Other long term (current) drug therapy
CPT/HCPCS: 36415; 76705; 85025; 85610; 85730; P9047

== ENCOUNTER → 2020-03-03 | Outpatient (CLI) | payer OTHER ==
[~2020-03-03] MED LIST changes: +Albumin 25% 0 ML ONE; -Albumin 25% 100 ML ONE; +Lidocaine 1% PF 5 ML VIAL ONE; +Sodium Bicarbonate 2.5 MEQ/5 ML VIAL ONE
--- NOTE | 2020-03-03 09:28 | ULT ---
EXAM: US Abdomen Limited CLINICAL HISTORY: Evaluate for ascites for possible paracentesis. COMPARISON: 02/26/2020 FINDINGS: Small amount of ascites is noted. The amount of free fluid in the abdomen is not felt to be sufficien t to warrant a ultrasound-guided paracentesis at this time. IMPRESSION: Small amount of ascites, not warranting paracentesis at this time. Paracentesis is postponed.
== END ==
LOC: ULT 07:39 → EDSTATUS 11:00
PROVIDERS: ATTEND Physician Assistant Medical
DX: K70.31 Alcoholic cirrhosis of liver with ascites (principal); K72.90 Hepatic failure, unspecified without coma
CPT/HCPCS: 76705; J2001; P9047

== ENCOUNTER → 2020-03-11 | Day surgery (SDC) | payer OTHER ==
[2020-03-10 14:59] VITALS: BMI 27.4
[~2020-03-11] MED LIST changes: -Albumin 25% 0 ML ONE; +Sodium Chloride 0.9% 10 ML ONE
[2020-03-11 13:39] VITALS: BP 122/66; TEMP 98.5
--- NOTE | 2020-03-11 14:20 | ULT ---
ULTRASOUND-GUIDED PARACENTESIS THERAPEUTIC: DATE: 03/11/2020 HISTORY: 54-year-old female with syndesmotic ascites (abdominal distention) (due to cirrhosis TECHNIQUE: Signed informed consent obtained. A four-quadrant survey of abdomen performed. Site selected for puncture: right upper quadrant Overlying skin prepared and draped in usual sterile fashion. 25-gauge needle used to apply buffered lidocaine superficially and deeply. 5 Kazakh Yueh catheter with stylette advanced into the pocket of free intraperitoneal fluid. After drainage, the Yueh catheter was removed. Patient tolerated the procedure well. No complications. FINDINGS: Volume of ascites prior to procedure:small. Volume of ascites fluid in the drainage pocket after drainage:Minimal. Volume of ascites fluid drained:2200 mL Appearance of ascites fluid:nonhemorrhagic, straw-colored. IMPRESSION: Successful therapeutic paracentesis, with drainage of 2.2 L of ascites fluid.
== END ==
LOC: ULT 09:50
PROVIDERS: ATTEND Physician Assistant Medical
PROC: 0W9G3ZZ Drainage of Peritoneal Cavity, Percutaneous Approach (ICD-10-PCS; principal; 2020-03-11)
PROC: BW40ZZZ Ultrasonography of Abdomen (ICD-10-PCS; principal; 2020-03-11)
DX: K74.60 Unspecified cirrhosis of liver (principal); R18.8 Other ascites; I10 Essential (primary) hypertension; F32.9 Major depressive disorder, single episode, unspecified; F41.9 Anxiety disorder, unspecified; D64.9 Anemia, unspecified; J45.909 Unspecified asthma, uncomplicated; Z79.899 Other long term (current) drug therapy
CPT/HCPCS: 49083; J2001

== ENCOUNTER 2020-03-23 18:03 | Inpatient (IN) | payer OTHER ==
[2020-03-23] MEDS ORDERED: Morphine 4 MG/ML VIAL ONE (19:14)
[2020-03-23] MEDS ORDERED: HumaLOG 300 UNITS/3 ML VIAL SC PRN (20:20)
[2020-03-23] MEDS ORDERED: Dextrose 50% Abboject 50 ML SYRINGE SLOW IVP PRN (20:20)
[2020-03-23] MEDS ORDERED: hydrALAZINE 20 MG/ML VIAL SLOW IVP PRN ×2 (20:20)
[2020-03-23] MEDS ORDERED: Ondansetron PF 4 MG/2 ML Vial IVP PRN (20:20)
[2020-03-23] MEDS ORDERED: Dextrose 5% in Water 1,000 ML IV PRN (20:20)
[2020-03-23] MEDS ORDERED: Ondansetron ODT 4 MG TAB PO PRN (20:20)
[2020-03-23] MEDS ORDERED: Morphine 2 MG/ML SYRINGE SLOW IVP PRN (20:23)
[2020-03-23] MEDS ORDERED: traMADol HCl 50 MG TAB PO PRN (20:24)
[2020-03-23] MEDS: traMADol HCl 50 MG TAB PO SCH (22:37)
[2020-03-23] MEDS: Cyclobenzaprine 10 MG TAB PO PRN (22:37)
[2020-03-23] MEDS: Morphine 4 MG/ML VIAL SLOW IVP PRN (22:41)
[2020-03-23] MEDS: Spironolactone 100 MG TAB PO SCH (23:41)
[2020-03-23] MEDS ORDERED: traMADol HCl 50 MG TAB PO SCH (23:59)
[2020-03-24 00:49] VITALS: BMI 27.9
[2020-03-24] MEDS ORDERED: Sodium Chloride 0.9% 1,000 ML IV SCH (01:30)
[2020-03-24] MEDS: Morphine 4 MG/ML VIAL SLOW IVP PRN ×2 (02:20→06:38)
[2020-03-24 04:25] LABS: ALT (SGPT) 29 U/L (8-55); AST (SGOT) 93 U/L (5-34); Albumin 3.3 g/dL (3.5-5.0); Alkaline Phosphatase 134 U/L (40-110); Anion Gap 15 mmol/L (10-20); BUN (Urea Nitrogen) 5 mg/dL (9.8-20.1); Bilirubin, Total 3.3 mg/dL (0.2-1.2); Calc. Creatinine Clearance 127 mL/min (70-130); Carbon Dioxide 16 mmol/L (22-29); Chloride 97 mmol/L (98-107); Estimated GFR-MDRD Greater than 90; Globulin 3.4 g/dL (2.4-3.5); Glucose 89 mg/dL (70-105); Potassium 5.1 mmol/L (3.5-5.1); Protein, Total 6.7 g/dL (6.0-8.3); Sodium 123 mmol/L (136-145)
[2020-03-24 04:53] LABS: Band 1 % (5-11); Hemoglobin 11.4 g/dL (12.0-16.0); Lymphocytes 12 % (21-51); MDiff Complete? YES; Mean Corpuscular HGB CONC 33.1 g/dL (32.0-36.0); Mean Corpuscular Hemoglobin 32.3 pg (27.0-31.0); Mean Corpuscular Volume 97.6 fL (78.0-98.0); Mean Platelet Volume 7.2 fL (7.4-10.4); Monocytes 13 % (0-10); Neutrophil 74 % (42-75); Platelet Count 132 thou/uL (130-400); Platelet Morphology Comment Appears Adequate; RBC Distribution Width 14.9 % (11.5-14.5); RBC Morphology Normal; Red Blood Cell (RBC) Count 3.52 mill/uL (4.20-5.40); White Blood Cell (WBC) Count 8.1 thou/uL (4.8-10.8)
[2020-03-24 05:26] LABS: Magnesium 1.9 mg/dL (1.6-2.6); Phosphorus 3.4 mg/dL (2.3-4.7)
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
[2020-03-24] MEDS: Folic Acid 1 MG TAB PO SCH (08:34)
[2020-03-24] MEDS: Magnesium Oxide 400 MG TAB PO SCH (08:35)
[2020-03-24] MEDS: Oxazepam 10 MG CAP PO SCH ×2 (08:35→21:12)
[2020-03-24] MEDS: Spironolactone 100 MG TAB PO SCH ×2 (08:35→21:12)
[2020-03-24] MEDS: Sodium Chloride 1 GM TAB PO SCH ×2 (08:35→21:12)
[2020-03-24] MEDS: Furosemide 40 MG TAB PO SCH ×2 (08:36→14:46)
[2020-03-24] MEDS: traMADol HCl 50 MG TAB PO SCH ×2 (08:36→21:12)
[2020-03-24] MEDS: Thiamine 100 MG TAB PO SCH (08:36)
[2020-03-24] MEDS ORDERED: Furosemide 40 MG TAB PO SCH (09:00)
[2020-03-24] MEDS: Enoxaparin Sodium 40 MG/0.4 ML SYRINGE SC SCH (11:09)
[2020-03-24] MEDS: Acetaminophen 325 MG TAB PO SCH ×3 (11:10→23:53)
[2020-03-24] MEDS: Gabapentin 300 MG CAP PO SCH ×2 (11:10→21:11)
[2020-03-24] MEDS: Cyclobenzaprine 10 MG TAB PO PRN ×2 (11:10→21:13)
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
[2020-03-25 06:04] LABS: INR-International Normal Ratio 1.7; PTT 45.4 sec (22.9-36.1)
[2020-03-25 06:10] LABS: Anion Gap 9 mmol/L (10-20); BUN (Urea Nitrogen) 8 mg/dL (9.8-20.1); Calc. Creatinine Clearance 125 mL/min (70-130); Carbon Dioxide 26 mmol/L (22-29); Chloride 93 mmol/L (98-107); Estimated GFR-MDRD Greater than 90; Glucose 79 mg/dL (70-105); Magnesium 1.6 mg/dL (1.6-2.6); Phosphorus 2.9 mg/dL (2.3-4.7); Sodium 124 mmol/L (136-145)
[2020-03-25] MEDS: Acetaminophen 325 MG TAB PO SCH ×4 (06:18→23:58)
[2020-03-25] MEDS: Oxazepam 10 MG CAP PO SCH ×3 (06:18→22:12)
[2020-03-25 06:19] LABS: #Eosinphils 0.1 thou/uL (0.0-0.7); #Lymphocytes 0.7 thou/uL (1.20-3.40); #Monocytes 0.4 thou/uL (0.11-0.59); %Basophils 1.4 % (0.0-1.0); %Eosinophils 3.7 % (0.0-10.0); %Lymphocytes 20.9 % (21.0-51.0); Hemoglobin 10.5 g/dL (12.0-16.0); Mean Corpuscular HGB CONC 33.1 g/dL (32.0-36.0); Mean Corpuscular Hemoglobin 32.8 pg (27.0-31.0); Mean Platelet Volume 7.5 fL (7.4-10.4); Platelet Count 57 thou/uL (130-400); RBC Distribution Width 14.6 % (11.5-14.5); White Blood Cell (WBC) Count 3.2 thou/uL (4.8-10.8)
[2020-03-25 06:20] LABS: Platelet Morphology Comment Appears Decreased
[2020-03-25] MEDS: Enoxaparin Sodium 40 MG/0.4 ML SYRINGE SC SCH (08:29)
[2020-03-25] MEDS: Furosemide 40 MG TAB PO SCH ×4 (08:30→21:56)
[2020-03-25] MEDS: Gabapentin 300 MG CAP PO SCH ×2 (08:30→21:56)
[2020-03-25] MEDS: traMADol HCl 50 MG TAB PO SCH ×2 (08:30→21:57)
[2020-03-25] MEDS: Thiamine 100 MG TAB PO SCH (08:30)
[2020-03-25] MEDS: Sodium Chloride 1 GM TAB PO SCH ×2 (08:30→21:56)
[2020-03-25] MEDS: Multivitamin W/ Minerals 1 TAB PO SCH (08:30)
[2020-03-25] MEDS: Folic Acid 1 MG TAB PO SCH (08:30)
[2020-03-25] MEDS: Magnesium Oxide 400 MG TAB PO SCH (08:30)
[2020-03-25] MEDS: Spironolactone 100 MG TAB PO SCH ×2 (08:30→21:56)
[2020-03-25] MEDS ORDERED: Magnesium 2 GM/50 ML 2 GM in Premix Bag 1 BAG IVPB SCH (09:15)
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
[2020-03-25] MEDS: Rifaximin 550 MG TAB PO SCH (21:56)
[2020-03-25] MEDS: Cyclobenzaprine 10 MG TAB PO PRN (21:56)
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
[2020-03-26] MEDS: Acetaminophen 325 MG TAB PO SCH ×2 (05:56→13:37)
[2020-03-26] MEDS: Oxazepam 10 MG CAP PO SCH ×2 (05:56→13:38)
[2020-03-26] MEDS ORDERED: Albumin 25% 25 GM/100 ML BOT IVPB SCH (06:00)
[2020-03-26 06:23] LABS: Eosinophils 1 % (0-10); Hemoglobin 10.9 g/dL (12.0-16.0); Hypochromia SLIGHT = 6-15 cells (100X) (0-5/hpf); Lymphocytes 10 % (21-51); MDiff Complete? YES; Mean Corpuscular HGB CONC 32.1 g/dL (32.0-36.0); Mean Corpuscular Hemoglobin 31.7 pg (27.0-31.0); Mean Corpuscular Volume 98.7 fL (78.0-98.0); Mean Platelet Volume 8.1 fL (7.4-10.4); Monocytes 13 % (0-10); Neutrophil 76 % (42-75); Platelet Count 69 thou/uL (130-400); Platelet Morphology Comment Appears Decreased; RBC Distribution Width 14.6 % (11.5-14.5); Red Blood Cell (RBC) Count 3.44 mill/uL (4.20-5.40); White Blood Cell (WBC) Count 3.5 thou/uL (4.8-10.8)
[2020-03-26 06:44] LABS: Anion Gap 11 mmol/L (10-20); BUN (Urea Nitrogen) 9 mg/dL (9.8-20.1); Calc. Creatinine Clearance 121 mL/min (70-130); Calcium 8.1 mg/dL (7.8-10.44); Carbon Dioxide 29 mmol/L (22-29); Chloride 94 mmol/L (98-107); Estimated GFR-MDRD Greater than 90; Glucose 81 mg/dL (70-105); Magnesium 1.5 mg/dL (1.6-2.6); Phosphorus 3.7 mg/dL (2.3-4.7); Potassium 4.4 mmol/L (3.5-5.1); Sodium 130 mmol/L (136-145)
[2020-03-26] MEDS: Rifaximin 550 MG TAB PO SCH (08:37)
[2020-03-26] MEDS: Folic Acid 1 MG TAB PO SCH (08:37)
[2020-03-26] MEDS: Spironolactone 100 MG TAB PO SCH (08:38)
[2020-03-26] MEDS: Furosemide 40 MG TAB PO SCH (08:38)
[2020-03-26] MEDS: Multivitamin W/ Minerals 1 TAB PO SCH (08:38)
[2020-03-26] MEDS: traMADol HCl 50 MG TAB PO SCH (08:38)
[2020-03-26] MEDS: Sodium Chloride 1 GM TAB PO SCH (08:38)
[2020-03-26] MEDS: Magnesium Oxide 400 MG TAB PO SCH (08:38)
[2020-03-26] MEDS: Thiamine 100 MG TAB PO SCH (08:38)
[2020-03-26] MEDS: Gabapentin 300 MG CAP PO SCH (08:39)
[2020-03-26] MEDS: Enoxaparin Sodium 40 MG/0.4 ML SYRINGE SC SCH (08:47)
[2020-03-26] MEDS ORDERED: Lidocaine 1% PF 5 ML VIAL ONE (09:10)
[2020-03-26] MEDS ORDERED: Sodium Bicarbonate 2.5 MEQ/5 ML VIAL ONE (09:10)
[2020-03-26] MEDS ORDERED: Magnesium Sulfate 4 GM in Sodium Chloride 0.9% 250 ML 250 ML IVPB SCH (09:30)
--- NOTE | 2020-03-26 09:49 | ULT ---
Exam: Ultrasound guided paracentesis HISTORY: Ascites COMPARISON: 03/11/2020 FINDINGS: Successful ultrasound-guided paracentesis. Total of 1.2 L of yellow color ascites was aspir ated. TECHNIQUE: Consent obtained reformatory ultrasound-guided paracentesis. Right lower quadrant was deem ed appropriate. Skin was prepped and draped in a sterile fashion. 1% lidocaine, buffered with sodium bicarbonate was used for local anesthesia. Under ultrasound guidance, a 5 Romansh 7 cm Yueh cat heter is advanced in the peritoneal space. A total of 1.2 L of yellow color ascites was aspirated. No immediate or postprocedural complications IMPRESSION: Successful ultrasound-guided paracentesis.
[2020-03-26 16:04] VITALS: BP 143/78; TEMP 97.3
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
== END 2020-03-26 17:47 | DRG 565 ==
LOC: ERS 18:03 → SURG B 19:50
PROVIDERS: ADMIT Surgery; ATTEND Surgery
PROC: 0W9G3ZZ Drainage of Peritoneal Cavity, Percutaneous Approach (ICD-10-PCS; principal; 2020-03-26)
DX: S22.22XA Fracture of body of sternum, initial encounter for closed fracture (principal); S22.088A Other fracture of T11-T12 vertebra, initial encounter for closed fracture; S32.048A Other fracture of fourth lumbar vertebra, initial encounter for closed fracture; E87.1 Hypo-osmolality and hyponatremia; K76.6 Portal hypertension; K27.9 Peptic ulcer, site unspecified, unspecified as acute or chronic, without hemorrhage or perforation; K21.9 Gastro-esophageal reflux disease without esophagitis; F10.129 Alcohol abuse with intoxication, unspecified; Y90.8 Blood alcohol level of 240 mg/100 ml or more; K70.31 Alcoholic cirrhosis of liver with ascites; K31.89 Other diseases of stomach and duodenum; V09.9XXA Pedestrian injured in unspecified transport accident, initial encounter; Z98.51 Tubal ligation status; Z79.899 Other long term (current) drug therapy
CPT/HCPCS: 36415; 49083; 80048; 80053; 82140; 83735; 84100; 85007; 85025; 85027; 85610; 85730; 94760; 96374; J1650; J2001; J2270; J2405; J3475; J7050; P9047; Q0162

== ENCOUNTER 2020-04-03 09:51 | Day surgery (SDC) | payer OTHER ==
[2020-04-01 11:37] VITALS: BMI 27.4
[2020-04-03] MEDS ORDERED: Sodium Bicarbonate 2.5 MEQ/5 ML VIAL ONE (10:13)
[2020-04-03] MEDS ORDERED: Lidocaine 1% PF 5 ML VIAL ONE (10:14)
[2020-04-03] MEDS ORDERED: Morphine 2 MG/ML SYRINGE ONE (10:14)
--- NOTE | 2020-04-03 11:18 | ULT ---
EXAM: US Abdomen Limited CLINICAL HISTORY: Ascites. COMPARISON: None. FINDINGS: Targeted imaging of the all 4 quadrants was performed. There does not appear to be enough f luid to warrant a paracentesis at this time. IMPRESSION: No significant fluid in the peritoneal space. There is not enough fluid to warrant a paracentesis at this time.
== END 2020-04-03 11:15 | disposition home or self-care (01) ==
LOC: ULT 09:51
PROVIDERS: ATTEND Physician Assistant Medical
PROC: 0W9G3ZZ Drainage of Peritoneal Cavity, Percutaneous Approach (ICD-10-PCS; principal; 2020-04-03)
PROC: BW40ZZZ Ultrasonography of Abdomen (ICD-10-PCS; principal; 2020-04-03)
DX: K74.60 Unspecified cirrhosis of liver (principal); R18.8 Other ascites; I10 Essential (primary) hypertension; J45.909 Unspecified asthma, uncomplicated; D64.9 Anemia, unspecified; F41.9 Anxiety disorder, unspecified; F32.9 Major depressive disorder, single episode, unspecified
CPT/HCPCS: 76705; J2001; J2270

== ENCOUNTER 2020-04-08 09:42 | Day surgery (SDC) | payer OTHER ==
[2020-04-07 08:54] VITALS: BMI 26.1
[2020-04-08] MEDS ORDERED: Lidocaine 1% PF 5 ML VIAL ONE (10:03)
--- NOTE | 2020-04-08 10:25 | ULT ---
Sonogram abdomen limited HISTORY: Recurrent ascites. FINDINGS: Exam was originally scheduled as a sonographic guided paracentesis. Sonographic survey shows a small amount of free fluid throughout the abdomen, not of sufficient volum e for therapeutic paracentesis. Partially visualized liver appears cirrhotic. IMPRESSION : Only small amount of abdominal fluid visualized on today's study. Paracentesis not performed.
== END 2020-04-08 10:38 | disposition home or self-care (01) ==
LOC: ULT 09:42
PROVIDERS: ATTEND Physician Assistant Medical
DX: K70.31 Alcoholic cirrhosis of liver with ascites (principal); K72.90 Hepatic failure, unspecified without coma; D64.9 Anemia, unspecified
CPT/HCPCS: 36415; 76705; 80048; J2001

== ENCOUNTER 2020-04-14 10:05 | Day surgery (SDC) | payer OTHER ==
[2020-04-13 11:47] VITALS: BMI 26.1
[2020-04-14] MEDS ORDERED: Albumin 25% 0 ML ONE (10:08)
[2020-04-14] MEDS ORDERED: Lidocaine 1% PF 5 ML VIAL ONE (10:08)
[2020-04-14] MEDS ORDERED: Sodium Bicarbonate 2.5 MEQ/5 ML VIAL ONE (10:08)
--- NOTE | 2020-04-14 10:59 | ULT ---
Exam: Limited abdomen ultrasound TECHNIQUE: Targeted imaging of all 4 quadrants was performed. FINDINGS: Injury and static images, attempt was made to perform a left lower quadrant ultrasound. Padmini ltime imaging is performed by the radiologist. Despite multiple patient maneuvers, there does not appear to be any significant volume of ascites or a paracentesis at this time. IMPRESSION: Small amount of ascites, not warranting ultrasound-guided paracentesis at this time
[2020-04-14 12:02] VITALS: BP 124/67; TEMP 98.2
== END 2020-04-14 10:50 | disposition home or self-care (01) ==
LOC: ULT 10:05
PROVIDERS: ATTEND Physician Assistant Medical
DX: K70.31 Alcoholic cirrhosis of liver with ascites (principal); K72.90 Hepatic failure, unspecified without coma; K21.9 Gastro-esophageal reflux disease without esophagitis; F10.11 Alcohol abuse, in remission; F41.9 Anxiety disorder, unspecified; F32.9 Major depressive disorder, single episode, unspecified; I10 Essential (primary) hypertension; J45.909 Unspecified asthma, uncomplicated; Z79.899 Other long term (current) drug therapy
CPT/HCPCS: 76705; J2001; P9047

== ENCOUNTER 2020-04-22 11:52 | Outpatient (CLI) | payer OTHER ==
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
--- NOTE | 2020-04-22 13:21 | RAD ---
THORACIC SPINE RADIOGRAPHS 3 VIEWS: DATE: 04/22/2020. PROVIDED CLINICAL HISTORY: Compression fracture. FINDINGS: Correlation is made with the CT performed 03/23/2020. Remote-appearing T12 compression deformity is r edemonstrated. Previously reported T11 compression deformity is not apparent on this examination. T horacic alignment appears normal. Vertebral body heights appear otherwise preserved. Intervertebral disk space heights appear preserved. IMPRESSION: Remote mild superior end plate compression deformity of T12 is redemonstrated. POS: AH
== END 2020-04-22 11:53 | disposition home or self-care (01) ==
LOC: BICRAD 11:52
PROVIDERS: ATTEND Neurological Surgery
DX: S32.041D Stable burst fracture of fourth lumbar vertebra, subsequent encounter for fracture with routine healing (principal); M43.9 Deforming dorsopathy, unspecified
CPT/HCPCS: 72070; 72100

== ENCOUNTER 2020-05-05 12:30 | Outpatient (CLI) | payer OTHER ==
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
== END 2020-05-05 12:31 | disposition home or self-care (01) ==
LOC: TBSIIMAG 12:30
PROVIDERS: ATTEND Physician Assistant
DX: S32.000D Wedge compression fracture of unspecified lumbar vertebra, subsequent encounter for fracture with routine healing (principal)
CPT/HCPCS: 72070; 72100

== ENCOUNTER 2020-06-03 09:45 | Day surgery (SDC) | payer OTHER ==
--- NOTE | 2020-06-03 10:15 | ULT ---
Ultrasound abdomen complete: 06/03/2020 HISTORY: 55-year-old female with abdominal distention. Evaluate for ascites. TECHNIQUE: Bilateral upper and lower quadrants and midline scanned FINDINGS: No free fluid is identified. IMPRESSION: No ascites identified.
== END 2020-06-03 10:00 | disposition home or self-care (01) ==
LOC: ULT 09:45
PROVIDERS: ATTEND Physician Assistant Medical
DX: K70.31 Alcoholic cirrhosis of liver with ascites (principal); G93.41 Metabolic encephalopathy; I10 Essential (primary) hypertension; F10.10 Alcohol abuse, uncomplicated; K21.9 Gastro-esophageal reflux disease without esophagitis; Z79.899 Other long term (current) drug therapy
CPT/HCPCS: 76705

== ENCOUNTER 2020-06-26 13:59 | Outpatient (CLI) | payer OTHER ==
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
== END 2020-06-26 14:00 | disposition home or self-care (01) ==
LOC: SCSMRI 13:59
PROVIDERS: ATTEND Nurse Practitioner Family
DX: S22.089A Unspecified fracture of T11-T12 vertebra, initial encounter for closed fracture (principal); S32.049A Unspecified fracture of fourth lumbar vertebra, initial encounter for closed fracture; M43.8X5 Other specified deforming dorsopathies, thoracolumbar region; M48.04 Spinal stenosis, thoracic region
CPT/HCPCS: 72146; 72148

== ENCOUNTER 2020-07-01 09:47 | Day surgery (SDC) | payer OTHER ==
[2020-06-30 14:36] VITALS: BMI 27.4
[2020-07-01 10:10] LABS: INR-International Normal Ratio 1.5; PTT 43.5 sec (22.9-36.1); Prothrombin Time 17.9 sec (12.0-14.7)
[2020-07-01 10:18] LABS: Mean Corpuscular Hemoglobin 33.5 pg (27.0-31.0); Platelet Count 92 thou/uL (130-400); RBC Distribution Width 14.3 % (11.5-14.5); Red Blood Cell (RBC) Count 3.29 mill/uL (4.20-5.40); White Blood Cell (WBC) Count 3.6 thou/uL (4.8-10.8)
[2020-07-01] MEDS ORDERED: Lidocaine 1% PF 5 ML VIAL ONE (10:37)
[2020-07-01] MEDS ORDERED: Sodium Bicarbonate 2.5 MEQ/5 ML VIAL ONE (10:37)
[2020-07-01 10:43] LABS: Eosinophils 2 % (0-10); Lymphocytes 31 % (21-51); MDiff Complete? YES; Monocytes 11 % (0-10); Neutrophil 51 % (42-75); Platelet Morphology Comment Appears Decreased; Polychromasia SLIGHT = 2-3 cells (100X) (0-2/hpf); Reactive Lymphocytes 4 % (0-10)
[2020-07-01 11:35] VITALS: BP 109/66; TEMP 98.2
--- NOTE | 2020-07-01 12:06 | ULT ---
Exam: Ultrasound guided paracentesis HISTORY: Ascites COMPARISON: 03/26/2020 FINDINGS: Successful ultrasound-guided paracentesis. Total of 2200 mL of yellow color ascites ascites was aspirated. TECHNIQUE: Consent obtained reformatory ultrasound-guided paracentesis. Right lower quadrant was deem ed appropriate. Skin was prepped and draped in a sterile fashion. 1% lidocaine, buffered with sodium bicarbonate was used for local anesthesia. Under ultrasound guidance, a 5 Sami 7 cm Yueh cat heter is advanced in the peritoneal space. A total of 2200 mL of yellow color ascites ascites was aspirated. No immediate or postprocedural complications IMPRESSION: Successful ultrasound-guided paracentesis.
== END 2020-07-01 11:25 | disposition home or self-care (01) ==
LOC: ULT 09:47
PROVIDERS: ATTEND Physician Assistant Medical
PROC: BW40ZZZ Ultrasonography of Abdomen (ICD-10-PCS; principal; 2020-07-01)
PROC: 0W9G3ZZ Drainage of Peritoneal Cavity, Percutaneous Approach (ICD-10-PCS; principal; 2020-07-01)
DX: K70.31 Alcoholic cirrhosis of liver with ascites (principal); K72.90 Hepatic failure, unspecified without coma; K76.7 Hepatorenal syndrome; I10 Essential (primary) hypertension; F41.9 Anxiety disorder, unspecified; F32.9 Major depressive disorder, single episode, unspecified; J45.909 Unspecified asthma, uncomplicated; K21.9 Gastro-esophageal reflux disease without esophagitis; Z79.899 Other long term (current) drug therapy
CPT/HCPCS: 49083; 85025; 85610; 85730

== ENCOUNTER 2020-08-03 11:25 | Emergency (ER) | payer OTHER ==
[~2020-08-03 11:25] MED LIST changes: +Iopamidol-370 76% 500 ML 1 ML ONE; -Lidocaine 1% PF 5 ML VIAL ONE; -Sodium Bicarbonate 2.5 MEQ/5 ML VIAL ONE; -Sodium Chloride 0.9% 10 ML ONE
[2020-08-03 12:17] LABS: ALT (SGPT) 16 U/L (8-55); AST (SGOT) 39 U/L (5-34); Albumin 2.5 g/dL (3.5-5.0); Alkaline Phosphatase 142 U/L (40-110); Anion Gap 10 mmol/L (10-20); BUN (Urea Nitrogen) 4 mg/dL (9.8-20.1); Bilirubin, Total 2.1 mg/dL (0.2-1.2); Calc. Creatinine Clearance 0 mL/min (70-130); Calcium 7.9 mg/dL (7.8-10.44); Carbon Dioxide 23 mmol/L (22-29); Chloride 108 mmol/L (98-107); Estimated GFR-MDRD Greater than 90; Globulin 3.2 g/dL (2.4-3.5); Glucose 100 mg/dL (70-105); Potassium 3.6 mmol/L (3.5-5.1); Protein, Total 5.7 g/dL (6.0-8.3); Sodium 137 mmol/L (136-145)
[2020-08-03 12:20] LABS: Eosinophils 2 % (0-10); Hemoglobin 10.4 g/dL (12.0-16.0); Lymphocytes 35 % (21-51); MDiff Complete? YES; Mean Corpuscular HGB CONC 33.6 g/dL (32.0-36.0); Mean Corpuscular Hemoglobin 33.5 pg (27.0-31.0); Mean Corpuscular Volume 99.6 fL (78.0-98.0); Mean Platelet Volume 6.9 fL (7.4-10.4); Monocytes 8 % (0-10); Neutrophil 53 % (42-75); Platelet Count 92 thou/uL (130-400); Platelet Morphology Comment Appears Decreased; Polychromasia SLIGHT = 2-3 cells (100X) (0-2/hpf); Reactive Lymphocytes 1 % (0-10); Red Blood Cell (RBC) Count 3.09 mill/uL (4.20-5.40)
[2020-08-03] MEDS ORDERED: Promethazine HCl 25 MG/ML VIAL ONE (12:26)
[2020-08-03] MEDS ORDERED: Morphine 4 MG/ML VIAL ONE (12:26)
[2020-08-03 13:45] LABS: Bilirubin Negative (Negative); Blood, Urine Negative (Negative); Clarity Clear (Clear); Glucose, Urine (Dipstick) Normal (Negative); Ketone, Urine Negative (Negative); Leukocyte Negative Leu/uL (Negative); Nitrite Negative (Negative); Protein, Urine (Dipstick) Negative (Neg-Trace); Specific Gravity, Urine 1.011 (1.002-1.036); Urobilinogen Normal mg/dL (Less than 2)
--- NOTE | 2020-08-03 14:38 | CT ---
CT ABDOMEN AND PELVIS WITH IV CONTRAST: Date: 08/03/2020 HISTORY: Abdominal pain. COMPARISON: 03/23/2020. FINDINGS: There are dependent changes in the lung bases. Bilateral breast implants are again seen. There is cir rhosis of the liver without evidence of enhancing mass. The spleen measures 13.2 cm in length. No lashawn cified gallstones are noted. The pancreas, adrenal glands, and kidneys are normal. No free air or lymphadenopathy is seen. A large amount of free fluid is seen in the abdomen and pelvi s. Uterus is present. The small bowel loops are not abnormally dilated. A small hiatal hernia is present. There is no evidence of aneurysmal dilatation of the abdominal aort a. Compression fractures of T11, T12, and L4 are again seen. IMPRESSION: 1. Cirrhosis of the liver. 2. Borderline splenomegaly. 3. Ascites. 4. Hiatal hernia. 5. Old fracture of T11, T12, and L4 vertebral bodies. POS: OFF
== END 2020-08-03 15:22 | disposition home or self-care (01) ==
LOC: ERS 11:25
DX: R18.8 Other ascites (principal); R10.13 Epigastric pain; R11.2 Nausea with vomiting, unspecified; K21.9 Gastro-esophageal reflux disease without esophagitis; K74.60 Unspecified cirrhosis of liver; Z79.899 Other long term (current) drug therapy
CPT/HCPCS: 36415; 74177; 80053; 81003; 85025; 96365; 96375; J2270; J2550; Q9967

== ENCOUNTER 2020-08-04 10:56 | Day surgery (SDC) | payer OTHER ==
[2020-08-03 14:35] VITALS: BMI 27.4
[2020-08-04 11:29] LABS: INR-International Normal Ratio 1.4; Prothrombin Time 17.6 sec (12.0-14.7)
[2020-08-04] MEDS ORDERED: Lidocaine 1% PF 5 ML VIAL ONE (12:17)
[2020-08-04] MEDS ORDERED: Sodium Bicarbonate 2.5 MEQ/5 ML VIAL ONE (12:17)
[2020-08-04] MEDS ORDERED: Albumin 25% 100 ML ONE (13:45)
[2020-08-04 13:53] VITALS: BP 121/66; TEMP 98.5
[2020-08-04] MEDS ORDERED: Prevnar 13-Val Conj/PF 0.5 ML SYRINGE IM ONE (15:00)
[2020-08-04] MEDS ORDERED: FLU VACC QS2020-21(6MOS UP)/PF 60 MCG/0.5 ML SYRINGE IM ONE (15:00)
--- NOTE | 2020-08-04 16:15 | ULT ---
Ultrasound-guided paracentesis: HISTORY: Cirrhosis and recurrent ascites. FINDINGS: Informed consent obtained prior to the procedure. Preprocedural imaging demonstrated intrap eritoneal free fluid. An area was marked in the right mid abdomen in the mid axillary line., and then meticulously prepped and draped in normal sterile fashion and anesthetized with 1% buffered lidocaine. With direct sonographic guidance, a 19-gauge needle and 5 [place] Yueh catheter were advanced into the abdomen. After the return of fluid, the catheter was advanced, and the needle was removed. Approximately 3.2 L of clear straw-colored fluid was aspirated. The introducer sheath was removed, a nd hemostasis was achieved with direct pressure. A dry sterile dressing was placed. The patient tolerated the procedure well and without immediate complication. IMPRESSION: Technically successful ultrasound-guided paracentesis.
== END 2020-08-04 13:45 | disposition home or self-care (01) ==
LOC: ULT 10:56
PROVIDERS: ATTEND Physician Assistant Medical
PROC: BW40ZZZ Ultrasonography of Abdomen (ICD-10-PCS; principal; 2020-08-04)
PROC: 0W9G3ZZ Drainage of Peritoneal Cavity, Percutaneous Approach (ICD-10-PCS; principal; 2020-08-04)
DX: K74.60 Unspecified cirrhosis of liver (principal); R18.8 Other ascites; G93.40 Encephalopathy, unspecified; I10 Essential (primary) hypertension; K21.9 Gastro-esophageal reflux disease without esophagitis; F41.9 Anxiety disorder, unspecified; Z79.899 Other long term (current) drug therapy
CPT/HCPCS: 36415; 49083; 85610; P9047

== ENCOUNTER → 2020-08-26 | Day surgery (SDC) | payer OTHER ==
[~2020-08-26] MED LIST changes: +FLU VACC QS2020-21(6MOS UP)/PF 60 MCG/0.5 ML SYRINGE IM ONE; -Iopamidol-370 76% 500 ML 1 ML ONE; +Prevnar 13-Val Conj/PF 0.5 ML SYRINGE IM ONE
--- NOTE | 2020-08-26 13:31 | ULT ---
EXAM: US Abdomen Limited CLINICAL HISTORY: Evaluate ascites for paracentesis. COMPARISON: None. FINDINGS: No significant peritoneal fluid. Small amount of fluid in the left lower quadrant. IMPRESSION: No significant peritoneal fluid to warrant ultrasound-guided paracentesis at this time.
== END ==
LOC: ULT 13:04
PROVIDERS: ATTEND Physician Assistant Medical
DX: R18.8 Other ascites (principal)
CPT/HCPCS: 36415; 76705; 80048; 90471; 90662; G0008

== ENCOUNTER 2020-09-01 14:52 | Outpatient (CLI) | payer OTHER ==
[~2020-09-01 14:52] MED LIST changes: -FLU VACC QS2020-21(6MOS UP)/PF 60 MCG/0.5 ML SYRINGE IM ONE; +Iopamidol 370 76% 100 ML VIAL ONE; -Prevnar 13-Val Conj/PF 0.5 ML SYRINGE IM ONE
--- NOTE | 2020-09-01 16:05 | CT ---
CT ABDOMEN WITH AND WITHOUT IV CONTRAST: 09/01/20 HISTORY: Cirrhosis. COMPARISON: 08/03/20. FINDINGS: There is partial visualization of bilateral breast prosthesis. Calcified left hilar lymph nodes are p resent with calcified granuloma in the lingula as well as calcified granuloma in the spleen related t o prior granulomatous disease. Lung bases are otherwise clear. Again noted is lobulated contour of the liver which is smaller in size than suggestive of cirrhosis. A tiny subcentimeter hypodense lesion is seen in the posterior aspect lateral segment left hepatic lo be which is stable compared to prior exam. Subtle subcentimeter hypodense areas are also seen within the anterior aspect lateral segment left hepatic lobe. No enhancing lesion is seen in the liver. The spleen is at the upper limits of normal in size. The pancreas, bilateral adrenal glands, kidneys, and abdominal aorta demonstrate a normal CT appearan ce. Opacified loops of small bowel have a normal appearance and are normal in caliber. There is evidence of a small hiatal hernia. Small amount of intraperitoneal free fluid is seen in the upper abdomen adjacent to the liver and spl een but greater adjacent to the liver. The degree of intraperitoneal free fluid has decreased when co mpared to study of 08/03/20. The portal veins appear to enhance on this exam. No enlarged lymph nodes are seen by CT size criteria. There are multiple serpiginous vessels seen in the region of the gastrohepatic ligament likely related to small varices. Stable compression fracture superior end plate T11 vertebral body with stable mild burst fracture of the T12 vertebral body and stable degree of height loss involving the burst fracture of the L4 verteb ral body. IMPRESSION: 1. Cirrhosis with suggestion of small varices in the gastrohepatic ligament. 2. Small amount of ascites. 3. Small hiatal hernia. 4. A few subcentimeter too small to characterize low density foci are seen in the lateral segmen t left hepatic lobe which are difficult to further characterize on this exam. No enhancing hepatic le bernadine is seen. 5. Stable compression/burst fractures involving T11, T12, and L4 vertebral bodies with stable ar ea of sclerosis involving the superior sacrum. POS: [facility]
== END 2020-09-01 14:53 | disposition home or self-care (01) ==
LOC: BICCT 14:52
PROVIDERS: ATTEND Internal Medicine Gastroenterology
DX: K76.9 Liver disease, unspecified (principal); K74.60 Unspecified cirrhosis of liver; R18.8 Other ascites; K44.9 Diaphragmatic hernia without obstruction or gangrene
CPT/HCPCS: 74170; Q9967

== ENCOUNTER → 2020-10-07 | Day surgery (SDC) | payer OTHER ==
[2020-10-06 12:19] VITALS: BMI 27.4
[~2020-10-07] MED LIST changes: +FLU VACC QS2020-21(6MOS UP)/PF 60 MCG/0.5 ML SYRINGE IM ONE; -Iopamidol 370 76% 100 ML VIAL ONE
--- NOTE | 2020-10-07 10:36 | ULT ---
Sonogram abdomen limited HISTORY: Recurrent ascites. FINDINGS: Exam was originally scheduled as a sonographic guided paracentesis. Sonographic survey show s minimal fluid in the upper abdomen. In the lower abdomen. Volume is not of sufficient quantity for safe paracentesis. IMPRESSION : Minimal ascites, not of sufficient volume for safe paracentesis.
== END ==
LOC: ULT 09:36
PROVIDERS: ATTEND Physician Assistant Medical
DX: K74.60 Unspecified cirrhosis of liver (principal); R18.8 Other ascites; K76.7 Hepatorenal syndrome; I10 Essential (primary) hypertension; F41.9 Anxiety disorder, unspecified; F32.9 Major depressive disorder, single episode, unspecified; K21.9 Gastro-esophageal reflux disease without esophagitis; J45.909 Unspecified asthma, uncomplicated; D64.9 Anemia, unspecified
CPT/HCPCS: 36415; 76705; 80053; 85025; 85610; 90471; 90662; 90732; G0008; G0009

== ENCOUNTER 2020-11-05 08:37 | Day surgery (SDC) | payer OTHER ==
[2020-11-04 11:00] VITALS: BMI 27.4
[2020-11-05] MEDS ORDERED: Sodium Bicarbonate 2.5 MEQ/5 ML VIAL ONE (08:42)
[2020-11-05] MEDS ORDERED: Lidocaine 1% PF 5 ML VIAL ONE (08:42)
[2020-11-05] MEDS ORDERED: FLU VACC QS2020-21(6MOS UP)/PF 60 MCG/0.5 ML SYRINGE IM ONE (11:15)
[2020-11-05 11:22] VITALS: BP 111/63; TEMP 98.4
== END 2020-11-05 09:05 | disposition home or self-care (01) ==
LOC: ULT 08:37
PROVIDERS: ATTEND Physician Assistant Medical
DX: K74.60 Unspecified cirrhosis of liver (principal); R18.8 Other ascites; J44.9 Chronic obstructive pulmonary disease, unspecified; I10 Essential (primary) hypertension; F41.9 Anxiety disorder, unspecified; F32.9 Major depressive disorder, single episode, unspecified; G43.909 Migraine, unspecified, not intractable, without status migrainosus; Z79.899 Other long term (current) drug therapy
CPT/HCPCS: 76705; 90471; 90662; 90732; G0008; G0009

== ENCOUNTER 2020-12-10 09:14 | Day surgery (SDC) | payer OTHER ==
[2020-12-09 11:25] VITALS: BMI 27.4
[2020-12-10] MEDS ORDERED: Lidocaine 1% PF 5 ML VIAL ONE (09:51)
[2020-12-10] MEDS ORDERED: Sodium Bicarbonate 2.5 MEQ/5 ML VIAL ONE (09:51)
[2020-12-10] MEDS ORDERED: Albumin 25% 0 ML ONE (09:51)
[2020-12-10 09:53] LABS: INR-International Normal Ratio 1.4; PTT 38.8 sec (22.9-36.1); Prothrombin Time 17.4 sec (12.0-14.7)
--- NOTE | 2020-12-10 10:07 | ULT ---
US Abdomen Limited: 12/10/2020 9:44 AM CLINICAL HISTORY: Ascites. STUDY: Limited 4 quadrant ultrasound of abdomen. COMPARISON: 11/05/2020 FINDINGS: A limited ultrasound of all 4 quadrants of the abdomen were performed showing a minimal amount of asc ites which is not amenable to percutaneous drainage. IMPRESSION: Mild ascites
[2020-12-10 10:09] LABS: Hemoglobin 11.7 g/dL (12.0-16.0); Mean Corpuscular HGB CONC 32.5 g/dL (32.0-36.0); Mean Corpuscular Hemoglobin 32.7 pg (27.0-31.0); Mean Platelet Volume 7.7 fL (7.4-10.4); Platelet Count 97 thou/uL (130-400); RBC Distribution Width 14.2 % (11.5-14.5); Red Blood Cell (RBC) Count 3.59 mill/uL (4.20-5.40); White Blood Cell (WBC) Count 3.6 thou/uL (4.8-10.8)
[2020-12-10 10:15] VITALS: BP 117/70; TEMP 98.4
[2020-12-10 10:54] LABS: Eosinophils 2 % (0-10); Lymphocytes 29 % (21-51); MDiff Complete? YES; Monocytes 15 % (0-10); Neutrophil 53 % (42-75); Platelet Morphology Comment Appears Adequate; Polychromasia SLIGHT = 2-3 cells (100X) (0-2/hpf)
[2020-12-10] MEDS ORDERED: FLU VACC QS2020-21(6MOS UP)/PF 60 MCG/0.5 ML SYRINGE IM ONE (11:30)
== END 2020-12-10 10:05 | disposition home or self-care (01) ==
LOC: ULT 09:14
PROVIDERS: ATTEND Physician Assistant Medical
DX: K70.31 Alcoholic cirrhosis of liver with ascites (principal); K72.90 Hepatic failure, unspecified without coma; J45.909 Unspecified asthma, uncomplicated; G43.909 Migraine, unspecified, not intractable, without status migrainosus; I10 Essential (primary) hypertension; F41.9 Anxiety disorder, unspecified; F32.9 Major depressive disorder, single episode, unspecified; F10.11 Alcohol abuse, in remission; K21.9 Gastro-esophageal reflux disease without esophagitis; Z79.899 Other long term (current) drug therapy
CPT/HCPCS: 76705; 85025; 85610; 85730; 90471; 90662; 90732; G0008; G0009; P9047

== ENCOUNTER 2021-02-16 07:27 | Outpatient (CLI) | payer OTHER ==
[2021-02-16] MEDS ORDERED: Iopamidol-370 76% 500 ML 1 ML ONE (08:51)
== END 2021-02-16 07:28 | disposition home or self-care (01) ==
LOC: BICCT 07:27
PROVIDERS: ATTEND Physician Assistant Medical
DX: K70.31 Alcoholic cirrhosis of liver with ascites (principal); K72.90 Hepatic failure, unspecified without coma; K76.9 Liver disease, unspecified; K44.9 Diaphragmatic hernia without obstruction or gangrene; K22.8 Other specified diseases of esophagus
CPT/HCPCS: 74170; Q9967

== ENCOUNTER 2021-03-01 13:50 | Emergency (ER) | payer OTHER ==
[2021-03-01] MEDS ORDERED: Ketorolac Tromethamine 30 MG/ML VIAL ONE (14:22)
[2021-03-01] MEDS ORDERED: Morphine 4 MG/ML VIAL ONE ×2 (14:22→15:47)
[2021-03-01 14:40] LABS: #Basophils 0.1 thou/uL (0.0-0.2); #Eosinphils 0.1 thou/uL (0.0-0.7); #Lymphocytes 1.9 thou/uL (1.20-3.40); #Monocytes 0.9 thou/uL (0.11-0.59); #Neutrophils 3.9 thou/uL (1.40-6.50); %Basophils 0.9 % (0.0-1.0); %Eosinophils 0.8 % (0.0-10.0); %Lymphocytes 27.9 % (21.0-51.0); %Monocytes 13.4 % (0.0-10.0); %Neutrophils 57.1 % (42.0-75.0); Hemoglobin 12.5 g/dL (12.0-16.0); Mean Corpuscular HGB CONC 33.7 g/dL (32.0-36.0); Mean Corpuscular Hemoglobin 31.5 pg (27.0-31.0); Mean Corpuscular Volume 93.5 fL (78.0-98.0); Mean Platelet Volume 6.7 fL (7.4-10.4); Platelet Count 122 thou/uL (130-400); RBC Distribution Width 14.7 % (11.5-14.5); Red Blood Cell (RBC) Count 3.96 mill/uL (4.20-5.40); White Blood Cell (WBC) Count 6.8 thou/uL (4.8-10.8)
[2021-03-01 14:57] LABS: ALT (SGPT) 47 U/L (8-55); AST (SGOT) 126 U/L (5-34); Albumin 3.5 g/dL (3.5-5.0); Alkaline Phosphatase 120 U/L (40-110); Anion Gap 16 mmol/L (10-20); BUN (Urea Nitrogen) 5 mg/dL (9.8-20.1); Bilirubin, Total 2.8 mg/dL (0.2-1.2); CK (CPK) 1960 U/L (29-168); Calc. Creatinine Clearance 0 mL/min (70-130); Calcium 8.5 mg/dL (7.8-10.44); Carbon Dioxide 21 mmol/L (22-29); Chloride 98 mmol/L (98-107); Globulin 3.7 g/dL (2.4-3.5); Glucose 108 mg/dL (70-105); Lipase 39 U/L (8-78); Magnesium 1.9 mg/dL (1.6-2.6); Potassium 4.4 mmol/L (3.5-5.1); Protein, Total 7.2 g/dL (6.0-8.3); Sodium 131 mmol/L (136-145)
[2021-03-01 15:00] LABS: BHCG - Serum Negative (NEGATIVE); Pregs Control Background? CLEAR/WHITE (CLR/WHITE); Pregs Control Bar Appear? YES (CONTROL BAR)
[2021-03-01] MEDS ORDERED: Lorazepam 2 MG/ML VIAL ONE (15:37)
== END 2021-03-01 17:52 | disposition home or self-care (01) ==
LOC: EEVIPCON 13:50 → ERS 13:50
DX: S22.42XA Multiple fractures of ribs, left side, initial encounter for closed fracture (principal); S05.12XA Contusion of eyeball and orbital tissues, left eye, initial encounter; S40.011A Contusion of right shoulder, initial encounter; S40.022A Contusion of left upper arm, initial encounter; S40.021A Contusion of right upper arm, initial encounter; S70.12XA Contusion of left thigh, initial encounter; S70.11XA Contusion of right thigh, initial encounter; Z79.899 Other long term (current) drug therapy; K74.60 Unspecified cirrhosis of liver; K21.9 Gastro-esophageal reflux disease without esophagitis; Y04.0XXA Assault by unarmed brawl or fight, initial encounter
CPT/HCPCS: 36415; 70450; 70486; 72125; 80053; 82550; 83605; 83690; 83735; 84703; 85025; 93005; 94799; 96374; 96375; 96376; J1885; J2060; J2270

== ENCOUNTER 2021-03-04 11:58 | Emergency (ER) | payer OTHER ==
[2021-03-04 13:11] LABS: #Eosinphils 0.1 thou/uL (0.0-0.7); #Monocytes 0.8 thou/uL (0.11-0.59); #Neutrophils 3.3 thou/uL (1.40-6.50); %Basophils 0.9 % (0.0-1.0); %Eosinophils 1.2 % (0.0-10.0); %Lymphocytes 18.7 % (21.0-51.0); %Monocytes 14.7 % (0.0-10.0); %Neutrophils 64.6 % (42.0-75.0); Mean Corpuscular HGB CONC 33.7 g/dL (32.0-36.0); Mean Corpuscular Hemoglobin 32.6 pg (27.0-31.0); Mean Corpuscular Volume 96.9 fL (78.0-98.0); Mean Platelet Volume 7.2 fL (7.4-10.4); Platelet Count 66 thou/uL (130-400); Red Blood Cell (RBC) Count 3.69 mill/uL (4.20-5.40); White Blood Cell (WBC) Count 5.1 thou/uL (4.8-10.8)
[2021-03-04 13:32] LABS: Anisocytosis SLIGHT = 6-15 cells (100X) (0-5/hpf); MDiff Complete? YES; Platelet Morphology Comment Appears Decreased; Polychromasia SLIGHT = 2-3 cells (100X) (0-2/hpf)
[2021-03-04 13:37] LABS: ALT (SGPT) 49 U/L (8-55); AST (SGOT) 115 U/L (5-34); Albumin 3.1 g/dL (3.5-5.0); Alcohol 319 mg/dL (Less than 10); Alkaline Phosphatase 113 U/L (40-110); Anion Gap 16 mmol/L (10-20); BUN (Urea Nitrogen) 4 mg/dL (9.8-20.1); CK (CPK) 706 U/L (29-168); Calc. Creatinine Clearance 0 mL/min (70-130); Calcium 7.4 mg/dL (7.8-10.44); Carbon Dioxide 19 mmol/L (22-29); Chloride 105 mmol/L (98-107); Globulin 3.2 g/dL (2.4-3.5); Glucose 81 mg/dL (70-105); Protein, Total 6.3 g/dL (6.0-8.3); Salicylate Less than 8.0 mg/dL (15.0-30.0); Sodium 135 mmol/L (136-145)
== END 2021-03-04 15:56 | disposition home or self-care (01) ==
LOC: ERS 11:58
DX: F10.129 Alcohol abuse with intoxication, unspecified (principal); K21.9 Gastro-esophageal reflux disease without esophagitis
CPT/HCPCS: 36415; 80053; 80307; 82140; 82550; 83690; 85025; 93005

== ENCOUNTER 2021-03-11 05:49 | Inpatient (IN) | payer OTHER ==
[2021-03-11 06:41] LABS: #Eosinphils 0.1 thou/uL (0.0-0.7); #Monocytes 0.5 thou/uL (0.11-0.59); %Basophils 0.5 % (0.0-1.0); %Eosinophils 3.1 % (0.0-10.0); %Lymphocytes 27.5 % (21.0-51.0); %Monocytes 14.7 % (0.0-10.0); %Neutrophils 54.1 % (42.0-75.0); Hemoglobin 11.9 g/dL (12.0-16.0); Mean Corpuscular HGB CONC 33.1 g/dL (32.0-36.0); Mean Corpuscular Hemoglobin 31.8 pg (27.0-31.0); Mean Platelet Volume 9.3 fL (7.4-10.4); Platelet Count 32 thou/uL (130-400); RBC Distribution Width 15.4 % (11.5-14.5); Red Blood Cell (RBC) Count 3.74 mill/uL (4.20-5.40); White Blood Cell (WBC) Count 3.6 thou/uL (4.8-10.8)
[2021-03-11 06:47] LABS: INR-International Normal Ratio 1.4
[2021-03-11 06:59] LABS: ALT (SGPT) 53 U/L (8-55); AST (SGOT) 222 U/L (5-34); Albumin 3.4 g/dL (3.5-5.0); Alkaline Phosphatase 194 U/L (40-110); Anion Gap 16 mmol/L (10-20); BUN (Urea Nitrogen) Less than 4 mg/dL (9.8-20.1); Bilirubin, Total 2.7 mg/dL (0.2-1.2); Calc. Creatinine Clearance 0 mL/min (70-130); Carbon Dioxide 24 mmol/L (22-29); Chloride 98 mmol/L (98-107); Glucose 90 mg/dL (70-105); Lipase 64 U/L (8-78); Potassium 4.7 mmol/L (3.5-5.1); Protein, Total 7.4 g/dL (6.0-8.3); Sodium 133 mmol/L (136-145)
[2021-03-11 07:23] LABS: Bilirubin Negative (Negative); Blood, Urine Negative (Negative); Clarity Clear (Clear); Glucose, Urine (Dipstick) Normal (Negative); Ketone, Urine Negative (Negative); Leukocyte Negative Leu/uL (Negative); Nitrite Negative (Negative); Protein, Urine (Dipstick) Negative (Neg-Trace); Specific Gravity, Urine 1.007 (1.002-1.036); Urobilinogen Normal mg/dL (Less than 2); pH, Urine 6.5 (5.0-9.0)
[2021-03-11] MEDS ORDERED: Ondansetron PF 4 MG/2 ML Vial ONE (08:01)
[2021-03-11] MEDS ORDERED: Morphine 2 MG/ML VIAL ONE (08:01)
[2021-03-11] MEDS ORDERED: Iopamidol-370 76% 500 ML 1 ML ONE (09:14)
[2021-03-11] MEDS ORDERED: Thiamine 100 MG TAB PO SCH (09:29)
[2021-03-11 10:18] VITALS: BMI 27.5
[2021-03-11] MEDS: Morphine 2 MG/ML VIAL SLOW IVP PRN ×3 (10:45→20:41)
[2021-03-11] MEDS ORDERED: Lidocaine 1% PF 5 ML VIAL ONE (11:09)
[2021-03-11] MEDS ORDERED: Sodium Bicarbonate 2.5 MEQ/5 ML VIAL ONE (11:09)
[2021-03-11 13:34] LABS: RBC Count-Automated (BF) 727 /cu.mm; WBC/Nucleated-Auto (BF) 90 uL
[2021-03-11 13:44] LABS: Body Fluid Source Peritoneal Fluid; Clarity Hazy (Clear); Tube # EDTA
[2021-03-11 13:45] LABS: BF Color Yellow
[2021-03-11 13:47] LABS: BF Segmented Neutrophils 4 %
[2021-03-11 13:48] LABS: Cell Count Non Hematic 76 %; Lymphocytes 20 %
[2021-03-11] MEDS: Ondansetron PF 4 MG/2 ML Vial IVP PRN (16:28)
[2021-03-11] MEDS ORDERED: Sodium Chloride 0.9% (PF) 10 ML VIAL FS PRN (17:00)
[2021-03-11 17:23] LABS: SARS-CoV-2 PCR by NAA Not Detected (NotDetected)
[2021-03-12] MEDS: Morphine 2 MG/ML VIAL SLOW IVP PRN ×4 (00:23→12:20)
[2021-03-12] MEDS: Ondansetron PF 4 MG/2 ML Vial IVP PRN (04:24)
[2021-03-12 06:13] LABS: Phosphorus 2.6 mg/dL (2.3-4.7)
[2021-03-12 06:15] LABS: ALT (SGPT) 42 U/L (8-55); AST (SGOT) 136 U/L (5-34); Alkaline Phosphatase 145 U/L (40-110); Anion Gap 12 mmol/L (10-20); BUN (Urea Nitrogen) 5 mg/dL (9.8-20.1); Bilirubin, Total 3.4 mg/dL (0.2-1.2); Calc. Creatinine Clearance 126 mL/min (70-130); Calcium 7.8 mg/dL (7.8-10.44); Carbon Dioxide 26 mmol/L (22-29); Chloride 99 mmol/L (98-107); Globulin 3.3 g/dL (2.4-3.5); Glucose 85 mg/dL (70-105); Magnesium 1.5 mg/dL (1.6-2.6); Potassium 3.9 mmol/L (3.5-5.1); Protein, Total 6.3 g/dL (6.0-8.3); Sodium 133 mmol/L (136-145)
[2021-03-12 06:18] LABS: Hemoglobin 11.1 g/dL (12.0-16.0); Mean Corpuscular HGB CONC 32.8 g/dL (32.0-36.0); Mean Corpuscular Hemoglobin 31.8 pg (27.0-31.0); Mean Platelet Volume 9.4 fL (7.4-10.4); Platelet Count 21 thou/uL (130-400); RBC Distribution Width 15.4 % (11.5-14.5); White Blood Cell (WBC) Count 2.4 thou/uL (4.8-10.8)
[2021-03-12 06:38] LABS: Band 7 % (5-11); Lymphocytes 12 % (21-51); MDiff Complete? YES; Monocytes 17 % (0-10); Neutrophil 64 % (42-75); Platelet Morphology Comment Appears Decreased
[2021-03-12] MEDS ORDERED: Promethazine HCl 25 MG in Sodium Chloride 0.9% 50 ML IVPB PRN (07:56)
[2021-03-12] MEDS: Pantoprazole 40 MG VIAL IVP SCH (08:29)
[2021-03-12] MEDS ORDERED: Spironolactone 100 MG TAB PO SCH (09:00)
[2021-03-12] MEDS ORDERED: Pantoprazole 40 MG VIAL IVP SCH (09:00)
[2021-03-12] MEDS ORDERED: Furosemide 40 MG TAB PO SCH (09:00)
[2021-03-12] MEDS: Potassium Chloride 10 MEQ TAB PO SCH (12:23)
[2021-03-12] MEDS: Folic Acid 1 MG TAB PO SCH (12:23)
[2021-03-12] MEDS: Thiamine 100 MG TAB PO SCH (12:23)
[2021-03-12] MEDS: Magnesium Oxide 400 MG TAB PO SCH (12:23)
[2021-03-12] MEDS: Dicyclomine 20 MG TAB PO SCH ×2 (12:23→20:15)
[2021-03-12] MEDS: Multivitamin W/ Minerals 1 TAB PO SCH (12:23)
[2021-03-12] MEDS ORDERED: Dextrose 5 % And 0.9 % NaCl 1,000 ML IV SCH ×2 (13:00→16:10)
[2021-03-13 06:36] LABS: Hemoglobin 11.4 g/dL (12.0-16.0); Mean Corpuscular HGB CONC 32.7 g/dL (32.0-36.0); Mean Corpuscular Hemoglobin 31.7 pg (27.0-31.0); Mean Platelet Volume 9.5 fL (7.4-10.4); Platelet Count 25 thou/uL (130-400); RBC Distribution Width 15.3 % (11.5-14.5); Red Blood Cell (RBC) Count 3.58 mill/uL (4.20-5.40); White Blood Cell (WBC) Count 2.5 thou/uL (4.8-10.8)
[2021-03-13 06:45] LABS: ALT (SGPT) 36 U/L (8-55); AST (SGOT) 104 U/L (5-34); Alkaline Phosphatase 143 U/L (40-110); Anion Gap 11 mmol/L (10-20); BUN (Urea Nitrogen) 5 mg/dL (9.8-20.1); Bilirubin, Total 3.7 mg/dL (0.2-1.2); Calc. Creatinine Clearance 110 mL/min (70-130); Calcium 8.4 mg/dL (7.8-10.44); Carbon Dioxide 23 mmol/L (22-29); Chloride 98 mmol/L (98-107); Globulin 3.4 g/dL (2.4-3.5); Glucose 86 mg/dL (70-105); Magnesium 1.5 mg/dL (1.6-2.6); Potassium 3.4 mmol/L (3.5-5.1); Protein, Total 6.4 g/dL (6.0-8.3); Sodium 129 mmol/L (136-145)
[2021-03-13 06:53] LABS: Eosinophils 2 % (0-10); Lymphocytes 27 % (21-51); MDiff Complete? YES; Monocytes 12 % (0-10); Neutrophil 58 % (42-75); Platelet Morphology Comment Appears Decreased
[2021-03-13] MEDS: Multivitamin W/ Minerals 1 TAB PO SCH (08:20)
[2021-03-13] MEDS: Dicyclomine 20 MG TAB PO SCH ×2 (08:20→19:47)
[2021-03-13] MEDS: Pantoprazole 40 MG VIAL IVP SCH (08:20)
[2021-03-13] MEDS: Folic Acid 1 MG TAB PO SCH (08:20)
[2021-03-13] MEDS: Magnesium Oxide 400 MG TAB PO SCH (08:20)
[2021-03-13] MEDS: Thiamine 100 MG TAB PO SCH (08:20)
[2021-03-13] MEDS: Potassium Chloride 10 MEQ TAB PO SCH (08:20)
[2021-03-13] MEDS ORDERED: Magnesium Sulfate 3 GM in Sodium Chloride 0.9% 100 ML IVPB SCH (10:00)
[2021-03-13] MEDS ORDERED: Potassium Chloride 20 MEQ TAB PO SCH (10:00)
[2021-03-13] MEDS: Morphine 2 MG/ML VIAL SLOW IVP PRN ×4 (11:11→23:47)
[2021-03-13] MEDS ORDERED: Sodium Chloride Nasal 15 GM TUBE EA NARE PRN (15:41)
[2021-03-14] MEDS: Morphine 2 MG/ML VIAL SLOW IVP PRN ×2 (04:22→08:43)
[2021-03-14 06:23] LABS: Hemoglobin 11.5 g/dL (12.0-16.0); Mean Corpuscular HGB CONC 32.1 g/dL (32.0-36.0); Mean Corpuscular Hemoglobin 31.6 pg (27.0-31.0); Mean Corpuscular Volume 98.4 fL (78.0-98.0); Mean Platelet Volume 8.7 fL (7.4-10.4); Platelet Count 30 thou/uL (130-400); RBC Distribution Width 15.4 % (11.5-14.5); Red Blood Cell (RBC) Count 3.64 mill/uL (4.20-5.40); White Blood Cell (WBC) Count 3.9 thou/uL (4.8-10.8)
[2021-03-14 06:37] LABS: ALT (SGPT) 34 U/L (8-55); AST (SGOT) 89 U/L (5-34); Alkaline Phosphatase 148 U/L (40-110); Anion Gap 13 mmol/L (10-20); BUN (Urea Nitrogen) 5 mg/dL (9.8-20.1); Bilirubin, Total 4.1 mg/dL (0.2-1.2); Calc. Creatinine Clearance 118 mL/min (70-130); Calcium 8.7 mg/dL (7.8-10.44); Carbon Dioxide 20 mmol/L (22-29); Chloride 102 mmol/L (98-107); Globulin 3.4 g/dL (2.4-3.5); Glucose 83 mg/dL (70-105); Magnesium 1.9 mg/dL (1.6-2.6); Potassium 4.1 mmol/L (3.5-5.1); Protein, Total 6.4 g/dL (6.0-8.3); Sodium 131 mmol/L (136-145)
[2021-03-14 06:53] LABS: Eosinophils 1 % (0-10); Lymphocytes 18 % (21-51); MDiff Complete? YES; Monocytes 17 % (0-10); Neutrophil 64 % (42-75); Platelet Morphology Comment Appears Decreased
[2021-03-14] MEDS: Magnesium Oxide 400 MG TAB PO SCH (08:34)
[2021-03-14] MEDS: Folic Acid 1 MG TAB PO SCH (08:34)
[2021-03-14] MEDS: Potassium Chloride 10 MEQ TAB PO SCH (08:34)
[2021-03-14] MEDS: Dicyclomine 20 MG TAB PO SCH (08:35)
[2021-03-14] MEDS: Multivitamin W/ Minerals 1 TAB PO SCH (08:35)
[2021-03-14] MEDS: Thiamine 100 MG TAB PO SCH (08:35)
[2021-03-14] MEDS: Pantoprazole 40 MG VIAL IVP SCH (08:35)
[2021-03-14] MEDS ORDERED: Lidocaine 5% Patch TD SCH (09:00)
[2021-03-14 10:36] VITALS: BP 150/70; TEMP 98.2
[2021-03-14] MEDS ORDERED: Transdermal Patch Removal TOP SCH (21:00)
== END 2021-03-14 10:21 | disposition home or self-care (01) | DRG 433 ==
LOC: ERS 05:49 → T4-A 07:58
PROVIDERS: ADMIT Internal Medicine; ATTEND Hospitalist
PROC: 0W9G3ZZ Drainage of Peritoneal Cavity, Percutaneous Approach (ICD-10-PCS; principal; 2021-03-11)
PROC: HZ2ZZZZ Detoxification Services for Substance Abuse Treatment (ICD-10-PCS; 2021-03-11)
DX: K70.31 Alcoholic cirrhosis of liver with ascites (principal); F10.230 Alcohol dependence with withdrawal, uncomplicated; D68.4 Acquired coagulation factor deficiency; D61.818 Other pancytopenia; E87.1 Hypo-osmolality and hyponatremia; D62 Acute posthemorrhagic anemia; K21.9 Gastro-esophageal reflux disease without esophagitis; G89.29 Other chronic pain; F41.9 Anxiety disorder, unspecified; K70.11 Alcoholic hepatitis with ascites; F32.9 Major depressive disorder, single episode, unspecified; M54.9 Dorsalgia, unspecified; Z20.822 Contact with and (suspected) exposure to COVID-19; E87.6 Hypokalemia; E83.42 Hypomagnesemia; Y90.8 Blood alcohol level of 240 mg/100 ml or more; Z98.51 Tubal ligation status; Z71.41 Alcohol abuse counseling and surveillance of alcoholic
CPT/HCPCS: 36415; 49083; 70450; 70486; 71260; 74177; 80053; 81003; 83690; 83735; 84100; 85025; 85060; 85610; 87070; 87205; 89051; 93005; 96374; 96375; C9113; J2270; J2405; J2550; J3475; J3490; Q9967; U0003; U0005

== ENCOUNTER 2021-03-19 08:40 | Emergency (ER) | payer OTHER ==
[2021-03-19] MEDS ORDERED: Morphine 4 MG/ML VIAL ONE (09:30)
[2021-03-19 10:17] LABS: Hemoglobin 12.4 g/dL (12.0-16.0); Mean Corpuscular HGB CONC 33.3 g/dL (32.0-36.0); Mean Corpuscular Hemoglobin 33.1 pg (27.0-31.0); Mean Corpuscular Volume 99.4 fL (78.0-98.0); Mean Platelet Volume 7.8 fL (7.4-10.4); Platelet Count 77 thou/uL (130-400); RBC Distribution Width 15.4 % (11.5-14.5); Red Blood Cell (RBC) Count 3.74 mill/uL (4.20-5.40); White Blood Cell (WBC) Count 3.5 thou/uL (4.8-10.8)
[2021-03-19 10:23] LABS: ALT (SGPT) 32 U/L (8-55); AST (SGOT) 60 U/L (5-34); Albumin 3.2 g/dL (3.5-5.0); Alkaline Phosphatase 170 U/L (40-110); Anion Gap 10 mmol/L (10-20); BUN (Urea Nitrogen) 5 mg/dL (9.8-20.1); Bilirubin, Total 3.5 mg/dL (0.2-1.2); Calc. Creatinine Clearance 0 mL/min (70-130); Carbon Dioxide 24 mmol/L (22-29); Chloride 103 mmol/L (98-107); Globulin 3.7 g/dL (2.4-3.5); Glucose 89 mg/dL (70-105); Lipase 129 U/L (8-78); Potassium 3.5 mmol/L (3.5-5.1); Protein, Total 6.9 g/dL (6.0-8.3); Sodium 133 mmol/L (136-145)
[2021-03-19 10:34] LABS: Eosinophils 2 % (0-10); Lymphocytes 21 % (21-51); MDiff Complete? YES; Monocytes 21 % (0-10); Neutrophil 55 % (42-75); Platelet Morphology Comment Appears Decreased; Polychromasia SLIGHT = 2-3 cells (100X) (0-2/hpf); Reactive Lymphocytes 1 % (0-10)
== END 2021-03-19 11:48 | disposition home or self-care (01) ==
LOC: ERS 08:40
DX: R18.8 Other ascites (principal); R10.9 Unspecified abdominal pain; K21.9 Gastro-esophageal reflux disease without esophagitis; K74.60 Unspecified cirrhosis of liver; Z79.899 Other long term (current) drug therapy
CPT/HCPCS: 36415; 80053; 83690; 85025; 96372; 99284; J2270

== ENCOUNTER 2021-03-27 18:31 | Observation (INO) | payer OTHER ==
[2021-03-27 19:15] LABS: #Lymphocytes 0.4 thou/uL (1.20-3.40); #Monocytes 0.4 thou/uL (0.11-0.59); #Neutrophils 3.3 thou/uL (1.40-6.50); %Basophils 0.1 % (0.0-1.0); %Lymphocytes 9.6 % (21.0-51.0); %Neutrophils 81.2 % (42.0-75.0); Hemoglobin 12.1 g/dL (12.0-16.0); Mean Corpuscular HGB CONC 33.7 g/dL (32.0-36.0); Mean Corpuscular Hemoglobin 32.5 pg (27.0-31.0); Mean Corpuscular Volume 96.5 fL (78.0-98.0); Mean Platelet Volume 6.7 fL (7.4-10.4); Platelet Count 126 thou/uL (130-400); RBC Distribution Width 15.2 % (11.5-14.5); Red Blood Cell (RBC) Count 3.72 mill/uL (4.20-5.40); White Blood Cell (WBC) Count 4.1 thou/uL (4.8-10.8)
[2021-03-27 19:36] LABS: ALT (SGPT) 34 U/L (8-55); AST (SGOT) 79 U/L (5-34); Albumin 3.4 g/dL (3.5-5.0); Alkaline Phosphatase 153 U/L (40-110); Anion Gap 17 mmol/L (10-20); BUN (Urea Nitrogen) 4 mg/dL (9.8-20.1); Bilirubin, Total 2.1 mg/dL (0.2-1.2); Calc. Creatinine Clearance 0 mL/min (70-130); Calcium 8.4 mg/dL (7.8-10.44); Carbon Dioxide 17 mmol/L (22-29); Chloride 106 mmol/L (98-107); Glucose 138 mg/dL (70-105); Lipase 41 U/L (8-78); Potassium 3.7 mmol/L (3.5-5.1); Protein, Total 7.4 g/dL (6.0-8.3); Sodium 136 mmol/L (136-145)
[2021-03-27] MEDS ORDERED: Morphine 4 MG/ML VIAL ONE (19:54)
[2021-03-27] MEDS ORDERED: Ondansetron PF 4 MG/2 ML Vial ONE (19:54)
[2021-03-27 20:38] LABS: ALT (SGPT) 32 U/L (8-55); AST (SGOT) 74 U/L (5-34); Albumin 3.2 g/dL (3.5-5.0); Alcohol 168 mg/dL (Less than 10); Alkaline Phosphatase 145 U/L (40-110); Anion Gap 15 mmol/L (10-20); BUN (Urea Nitrogen) 4 mg/dL (9.8-20.1); Calc. Creatinine Clearance 0 mL/min (70-130); Calcium 8.1 mg/dL (7.8-10.44); Carbon Dioxide 18 mmol/L (22-29); Chloride 106 mmol/L (98-107); Globulin 3.7 g/dL (2.4-3.5); Glucose 117 mg/dL (70-105); Potassium 3.8 mmol/L (3.5-5.1); Protein, Total 6.9 g/dL (6.0-8.3); Sodium 135 mmol/L (136-145)
[2021-03-27] MEDS ORDERED: Ondansetron ODT 4 MG TAB PO PRN (22:13)
[2021-03-27] MEDS ORDERED: Ondansetron PF 4 MG/2 ML Vial IVP PRN (22:13)
[2021-03-27] MEDS ORDERED: Furosemide 40 MG/4 ML VIAL SLOW IVP SCH (22:45)
[2021-03-27] MEDS ORDERED: Furosemide 40 MG/4 ML VIAL ONE (23:16)
[2021-03-28] MEDS: Morphine 4 MG/ML VIAL SLOW IVP PRN ×3 (00:17→09:06)
[2021-03-28 01:47] VITALS: BMI 28.4
[2021-03-28 03:16] LABS: Bilirubin Negative (Negative); Blood, Urine Negative (Negative); Clarity Clear (Clear); Glucose, Urine (Dipstick) Normal (Negative); Ketone, Urine Negative (Negative); Leukocyte Negative Leu/uL (Negative); Nitrite Negative (Negative); Protein, Urine (Dipstick) Negative (Neg-Trace); Specific Gravity, Urine 1.007 (1.002-1.036); Urobilinogen Normal mg/dL (Less than 2); pH, Urine 6.5 (5.0-9.0)
[2021-03-28 05:55] LABS: #Lymphocytes 0.8 thou/uL (1.20-3.40); #Monocytes 0.6 thou/uL (0.11-0.59); #Neutrophils 3.2 thou/uL (1.40-6.50); %Basophils 0.2 % (0.0-1.0); %Lymphocytes 17.8 % (21.0-51.0); %Monocytes 12.5 % (0.0-10.0); %Neutrophils 68.5 % (42.0-75.0); Hemoglobin 10.4 g/dL (12.0-16.0); Mean Corpuscular HGB CONC 31.8 g/dL (32.0-36.0); Mean Corpuscular Volume 97.3 fL (78.0-98.0); Mean Platelet Volume 6.9 fL (7.4-10.4); Platelet Count 101 thou/uL (130-400); RBC Distribution Width 15.1 % (11.5-14.5); Red Blood Cell (RBC) Count 3.34 mill/uL (4.20-5.40); White Blood Cell (WBC) Count 4.7 thou/uL (4.8-10.8)
[2021-03-28 06:11] LABS: Anion Gap 11 mmol/L (10-20); BUN (Urea Nitrogen) 4 mg/dL (9.8-20.1); Calc. Creatinine Clearance 120 mL/min (70-130); Calcium 7.9 mg/dL (7.8-10.44); Carbon Dioxide 20 mmol/L (22-29); Chloride 104 mmol/L (98-107); Glucose 80 mg/dL (70-105); Potassium 3.4 mmol/L (3.5-5.1); Sodium 132 mmol/L (136-145)
[2021-03-28] MEDS ORDERED: Furosemide 40 MG/4 ML VIAL SLOW IVP SCH (09:00)
[2021-03-28] MEDS ORDERED: Enoxaparin Sodium 40 MG/0.4 ML SYRINGE SC SCH (09:00)
[2021-03-28] MEDS ORDERED: traMADol HCl 50 MG TAB PO SCH (14:15)
[2021-03-28 15:49] VITALS: BP 118/86; TEMP 98.1
== END 2021-03-28 16:00 | disposition home or self-care (01) ==
LOC: ERS 18:31 → ERHOLD 21:17 → SURG A 23:44
PROVIDERS: ADMIT Student in an Organized Health Care Education/Training Program; ATTEND Internal Medicine
DX: K70.31 Alcoholic cirrhosis of liver with ascites (principal); F10.10 Alcohol abuse, uncomplicated; K21.9 Gastro-esophageal reflux disease without esophagitis; G89.29 Other chronic pain; M54.9 Dorsalgia, unspecified; Z87.11 Personal history of peptic ulcer disease; Z79.899 Other long term (current) drug therapy; Z91.011 Allergy to milk products; Y90.6 Blood alcohol level of 120-199 mg/100 ml
CPT/HCPCS: 36415; 71045; 76705; 80048; 80053; 80307; 81003; 82140; 83690; 85025; 96374; 96375; 96376; G0378; J1940; J2270; J2405

== ENCOUNTER 2021-04-27 18:37 | Emergency (ER) | payer OTHER ==
[2021-04-27 19:16] LABS: Hemoglobin 11.5 g/dL (12.0-16.0); Mean Corpuscular HGB CONC 33.5 g/dL (32.0-36.0); Mean Corpuscular Hemoglobin 32.5 pg (27.0-31.0); Mean Corpuscular Volume 97.3 fL (78.0-98.0); Mean Platelet Volume 7.3 fL (7.4-10.4); Platelet Count 126 thou/uL (130-400); RBC Distribution Width 15.1 % (11.5-14.5); Red Blood Cell (RBC) Count 3.53 mill/uL (4.20-5.40); White Blood Cell (WBC) Count 5.5 thou/uL (4.8-10.8)
[2021-04-27 19:32] LABS: Band 3 % (5-11); Lymphocytes 14 % (21-51); MDiff Complete? YES; Monocytes 16 % (0-10); Neutrophil 59 % (42-75); Platelet Morphology Comment Appears Decreased; Polychromasia SLIGHT = 2-3 cells (100X) (0-2/hpf); Reactive Lymphocytes 8 % (0-10); Target Cells SLIGHT = 2-5 cells (100X) (0-1/hpf)
[2021-04-27 19:34] LABS: ALT (SGPT) 15 U/L (8-55); AST (SGOT) 38 U/L (5-34); Albumin 3.2 g/dL (3.5-5.0); Alkaline Phosphatase 137 U/L (40-110); Anion Gap 10 mmol/L (10-20); BUN (Urea Nitrogen) 5 mg/dL (9.8-20.1); Bilirubin, Total 2.3 mg/dL (0.2-1.2); Calc. Creatinine Clearance 0 mL/min (70-130); Calcium 8.9 mg/dL (7.8-10.44); Carbon Dioxide 27 mmol/L (22-29); Chloride 102 mmol/L (98-107); Globulin 3.5 g/dL (2.4-3.5); Glucose 109 mg/dL (70-105); Potassium 3.3 mmol/L (3.5-5.1); Protein, Total 6.7 g/dL (6.0-8.3); Sodium 136 mmol/L (136-145)
[2021-04-27 20:05] LABS: INR-International Normal Ratio 1.4; PTT 36.2 sec (22.9-36.1); Prothrombin Time 17.4 sec (12.0-14.7)
[2021-04-27] MEDS ORDERED: Lidocaine 1% w/Epinephrine 1:100K 20 ML VIAL ONE (20:11)
[2021-04-27] MEDS ORDERED: Morphine 4 MG/ML VIAL ONE ×2 (20:11→21:22)
== END 2021-04-27 21:48 | disposition home or self-care (01) ==
LOC: ERS 18:37
DX: K70.31 Alcoholic cirrhosis of liver with ascites (principal); K21.9 Gastro-esophageal reflux disease without esophagitis
CPT/HCPCS: 36415; 49083; 80053; 85025; 85610; 85730; 96374; 96376; J2270

== ENCOUNTER 2021-06-04 08:53 | Outpatient (CLI) | payer OTHER | END 2021-06-04 08:54 | disposition home or self-care (01) | LOC: RAD-FRANK 08:53 | PROVIDERS: ATTEND Nurse Practitioner Family | DX: M79.671 Pain in right foot (principal) ==

== ENCOUNTER 2021-06-18 00:24 | Emergency (ER) | payer OTHER ==
[2021-06-18 01:26] LABS: #Basophils 0.1 thou/uL (0.0-0.2); #Eosinphils 0.2 thou/uL (0.0-0.7); #Lymphocytes 2.3 thou/uL (1.20-3.40); #Neutrophils 3.8 thou/uL (1.40-6.50); %Basophils 0.9 % (0.0-1.0); %Eosinophils 2.1 % (0.0-10.0); %Lymphocytes 31.3 % (21.0-51.0); %Monocytes 13.7 % (0.0-10.0); Hemoglobin 12.2 g/dL (12.0-16.0); Mean Corpuscular HGB CONC 33.9 g/dL (32.0-36.0); Mean Corpuscular Hemoglobin 31.8 pg (27.0-31.0); Mean Corpuscular Volume 93.9 fL (78.0-98.0); Platelet Count 152 thou/uL (130-400); RBC Distribution Width 15.1 % (11.5-14.5); Red Blood Cell (RBC) Count 3.84 mill/uL (4.20-5.40); White Blood Cell (WBC) Count 7.3 thou/uL (4.8-10.8)
[2021-06-18] MEDS ORDERED: DEXTROSE 5% IV SCH (01:30)
[2021-06-18] MEDS ORDERED: ACETYLCYSTEINE IV SCH (01:30)
[2021-06-18] MEDS ORDERED: WATER IV SCH (01:30)
[2021-06-18 01:33] LABS: Amphetamine Not Detected (NotDetected); Barbiturates Screen Not Detected (NotDetected); Benzodiazepine Screen Detected (NotDetected); Cocaine Metabolite Screen Not Detected (NotDetected); Methadone Not Detected (NotDetected); Methamphetamine Not Detected (NotDetected); Opiate Screen Not Detected (NotDetected); Oxycodone Screen Not Detected (NotDetected); Phencyclidine (PCP) Not Detected (NotDetected); THC/Cannabinoid Screen Not Detected (NotDetected); Tricyclic Screen Not Detected (NotDetected)
[2021-06-18 01:37] LABS: INR-International Normal Ratio 1.4; Prothrombin Time 16.7 sec (12.0-14.7)
[2021-06-18 01:38] LABS: PTT 36.4 sec (22.9-36.1)
[2021-06-18 01:46] LABS: Acetaminophen Less than 6.0 mcg/mL (10.0-30.0); Alcohol 305 mg/dL (Less than 10); Salicylate Less than 8.0 mg/dL (15.0-30.0)
[2021-06-18 01:47] LABS: ALT (SGPT) 19 U/L (8-55); AST (SGOT) 40 U/L (5-34); Albumin 3.1 g/dL (3.5-5.0); Alkaline Phosphatase 111 U/L (40-110); Anion Gap 15 mmol/L (10-20); BUN (Urea Nitrogen) Less than 4 mg/dL (9.8-20.1); Bilirubin, Total 1.5 mg/dL (0.2-1.2); Calc. Creatinine Clearance 0 mL/min (70-130); Carbon Dioxide 19 mmol/L (22-29); Chloride 104 mmol/L (98-107); Globulin 3.1 g/dL (2.4-3.5); Glucose 96 mg/dL (70-105); Potassium 3.8 mmol/L (3.5-5.1); Protein, Total 6.2 g/dL (6.0-8.3); Sodium 134 mmol/L (136-145)
[2021-06-18] MEDS ORDERED: hydrOXYzine 25 MG TAB ONE (10:48)
== END 2021-06-18 19:16 | disposition home or self-care (01) ==
LOC: ERS 00:24
DX: F43.20 Adjustment disorder, unspecified (principal); F10.129 Alcohol abuse with intoxication, unspecified; K21.9 Gastro-esophageal reflux disease without esophagitis; M81.0 Age-related osteoporosis without current pathological fracture; Y90.6 Blood alcohol level of 120-199 mg/100 ml; Z79.899 Other long term (current) drug therapy
CPT/HCPCS: 36415; 80053; 80306; 80307; 85025; 85610; 85730; J0132; J7070

== ENCOUNTER 2021-07-27 08:40 | Outpatient (CLI) | payer OTHER | END 2021-07-27 08:41 | disposition home or self-care (01) | LOC: BICCT 08:40 | PROVIDERS: ATTEND Physician Assistant Medical | DX: K70.31 Alcoholic cirrhosis of liver with ascites (principal); K72.90 Hepatic failure, unspecified without coma; K76.9 Liver disease, unspecified; D64.9 Anemia, unspecified; R10.32 Left lower quadrant pain; K76.6 Portal hypertension; K44.9 Diaphragmatic hernia without obstruction or gangrene | CPT/HCPCS: 74177 ==

== ENCOUNTER 2021-10-15 10:24 | Outpatient (CLI) | payer OTHER ==
[2021-10-16 17:02] LABS: SARS-CoV-2 PCR by NAA Not Detected (NotDetected)
== END 2021-10-15 10:25 | disposition home or self-care (01) ==
LOC: LABBT 10:24
PROVIDERS: ATTEND Internal Medicine Gastroenterology
DX: Z01.812 Encounter for preprocedural laboratory examination (principal); K70.30 Alcoholic cirrhosis of liver without ascites; I85.10 Secondary esophageal varices without bleeding; Z20.822 Contact with and (suspected) exposure to COVID-19
CPT/HCPCS: U0003; U0005

== ENCOUNTER 2021-10-20 06:32 | Day surgery (SDC) | payer OTHER ==
[2021-10-14 10:54] VITALS: BMI 26.6
[2021-10-20] MEDS ORDERED: PROPOFOL 200 MG/20 ML VIAL ONE (08:08)
[2021-10-20] MEDS ORDERED: Lidocaine 1% PF 5 ML VIAL ONE (08:08)
== END 2021-10-20 10:35 | disposition home or self-care (01) ==
LOC: SDC 06:32
PROVIDERS: ATTEND Internal Medicine Gastroenterology
PROC: 06L38CZ Occlusion of Esophageal Vein with Extraluminal Device, Via Natural or Artificial Opening Endoscopic (ICD-10-PCS; principal; 2021-10-20)
DX: K70.30 Alcoholic cirrhosis of liver without ascites (principal); K76.6 Portal hypertension; K31.89 Other diseases of stomach and duodenum; I85.10 Secondary esophageal varices without bleeding; K22.10 Ulcer of esophagus without bleeding; Z79.899 Other long term (current) drug therapy

== ENCOUNTER 2021-12-24 08:18 | Outpatient (CLI) | payer OTHER | END 2021-12-24 08:19 | disposition home or self-care (01) | LOC: ULT 08:18 | PROVIDERS: ATTEND Nurse Practitioner Family | DX: K70.31 Alcoholic cirrhosis of liver with ascites (principal); R16.1 Splenomegaly, not elsewhere classified | CPT/HCPCS: 76705 ==

== ENCOUNTER 2022-02-25 18:47 | Emergency (ER) | payer OTHER ==
[2022-02-25 19:22] LABS: Hemoglobin 12.3 g/dL (12.0-16.0); Mean Corpuscular HGB CONC 33.5 g/dL (32.0-36.0); Mean Corpuscular Volume 92.6 fL (78.0-98.0); RBC Distribution Width 16.4 % (11.5-14.5); Red Blood Cell (RBC) Count 3.98 mill/uL (4.20-5.40); White Blood Cell (WBC) Count 3.7 thou/uL (4.8-10.8)
[2022-02-25 19:38] LABS: ALT (SGPT) 32 U/L (8-55); AST (SGOT) 76 U/L (5-34); Acetaminophen Less than 10.0 mcg/mL (10.0-30.0); Albumin 3.6 g/dL (3.5-5.0); Alcohol 293 mg/dL (Less than 10); Alkaline Phosphatase 98 U/L (40-110); Anion Gap 17 mmol/L (10-20); BUN (Urea Nitrogen) Less than 4 mg/dL (9.8-20.1); Bilirubin, Total 1.8 mg/dL (0.2-1.2); Calc. Creatinine Clearance 0 mL/min (70-130); Calcium 8.8 mg/dL (7.8-10.44); Carbon Dioxide 20 mmol/L (22-29); Chloride 100 mmol/L (98-107); Globulin 3.5 g/dL (2.4-3.5); Glucose 93 mg/dL (70-105); Potassium 3.7 mmol/L (3.5-5.1); Protein, Total 7.1 g/dL (6.0-8.3); Salicylate Less than 8.0 mg/dL (15.0-30.0); Sodium 133 mmol/L (136-145)
[2022-02-25 20:21] LABS: Band 3 % (5-11); Eosinophils 1 % (0-10); Lymphocytes 37 % (21-51); MDiff Complete? YES; Monocytes 12 % (0-10); Neutrophil 47 % (42-75); Platelet Count 78 thou/uL (130-400); Platelet Morphology Comment Appears Decreased
[2022-02-25] MEDS ORDERED: Lorazepam 1 MG TAB ONE (20:31)
[2022-02-25 22:42] LABS: Bilirubin Negative (Negative); Blood, Urine Negative (Negative); Clarity Clear (Clear); Glucose, Urine (Dipstick) Normal (Negative); Ketone, Urine Negative (Negative); Leukocyte Negative Leu/uL (Negative); Nitrite Negative (Negative); Protein, Urine (Dipstick) Negative (Neg-Trace); Specific Gravity, Urine 1.004 (1.002-1.036); Urobilinogen Normal mg/dL (Less than 2); pH, Urine 6.5 (5.0-9.0)
[2022-02-25 22:50] LABS: Amphetamine Detected (NotDetected); Barbiturates Screen Not Detected (NotDetected); Benzodiazepine Screen Detected (NotDetected); Cocaine Metabolite Screen Not Detected (NotDetected); Methadone Not Detected (NotDetected); Methamphetamine Not Detected (NotDetected); Opiate Screen Not Detected (NotDetected); Oxycodone Screen Not Detected (NotDetected); Phencyclidine (PCP) Not Detected (NotDetected); THC/Cannabinoid Screen Not Detected (NotDetected); Tricyclic Screen Not Detected (NotDetected)
== END 2022-02-26 11:28 | disposition home or self-care (01) ==
LOC: ERS 18:47
DX: F43.20 Adjustment disorder, unspecified (principal); I49.3 Ventricular premature depolarization; K21.9 Gastro-esophageal reflux disease without esophagitis; M81.0 Age-related osteoporosis without current pathological fracture; Z87.19 Personal history of other diseases of the digestive system; Z79.899 Other long term (current) drug therapy
CPT/HCPCS: 36415; 80053; 80306; 80307; 81003; 84443; 85025; 93005; 94760

== ENCOUNTER 2022-03-01 11:05 | Outpatient (CLI) | payer OTHER | END 2022-03-01 11:06 | disposition home or self-care (01) | LOC: RAD-FRANK 11:05 | PROVIDERS: ATTEND Nurse Practitioner Family | DX: R50.81 Fever presenting with conditions classified elsewhere (principal) | CPT/HCPCS: 71046 ==

== ENCOUNTER 2022-03-04 21:26 | Inpatient (IN) | payer OTHER ==
[2022-03-04 22:13] LABS: #Lymphocytes 0.9 thou/uL (1.20-3.40); #Monocytes 0.9 thou/uL (0.11-0.59); #Neutrophils 5.1 thou/uL (1.40-6.50); %Basophils 0.7 % (0.0-1.0); %Lymphocytes 13.4 % (21.0-51.0); %Monocytes 13.1 % (0.0-10.0); %Neutrophils 72.8 % (42.0-75.0); Hemoglobin 12.2 g/dL (12.0-16.0); Mean Corpuscular HGB CONC 31.6 g/dL (32.0-36.0); Mean Corpuscular Hemoglobin 29.9 pg (27.0-31.0); Mean Corpuscular Volume 94.6 fL (78.0-98.0); Mean Platelet Volume 8.5 fL (7.4-10.4); Platelet Count 76 thou/uL (130-400); RBC Distribution Width 16.7 % (11.5-14.5); Red Blood Cell (RBC) Count 4.08 mill/uL (4.20-5.40)
[2022-03-04] MEDS ORDERED: Octreotide Acetate 100 MCG/ML VIAL ONE (22:24)
[2022-03-04] MEDS ORDERED: Pantoprazole 40 MG VIAL ONE ×2 (22:24→22:27)
[2022-03-04 22:26] LABS: INR-International Normal Ratio 1.3
[2022-03-04 22:27] LABS: PTT 30.7 sec (22.9-36.1)
[2022-03-04] MEDS ORDERED: Pantoprazole 80 MG, Admixture Fee 1 EACH in Sodium Chloride 0.9% 100 ML IVPB SCH (23:00)
[2022-03-04] MEDS ORDERED: Octreotide Acetate 1,250 MCG in Sodium Chloride 0.9% 250 ML 250 ML IVPB SCH (23:00)
[2022-03-04] MEDS ORDERED: EPINEPHrine 1 MG/10 ML Abboject SYRINGE ONE (23:05)
[2022-03-04] MEDS ORDERED: fentaNYL Citrate/PF 100 MCG/2 ML SYRINGE ONE (23:06)
[2022-03-04] MEDS ORDERED: Phenylephrine 10 MG/ML VIAL ONE (23:06)
[2022-03-04] MEDS ORDERED: cefTRIAXone\\ROCEPHIN 1 GM VIAL ONE (23:10)
[2022-03-04] MEDS ORDERED: cefTRIAXone\\ROCEPHIN 1 GM in Sodium Chloride 0.9% 100 ML IVPB SCH (23:30)
[2022-03-04] MEDS ORDERED: Acetaminophen 325 MG TAB PO PRN (23:31)
[2022-03-04] MEDS ORDERED: Ondansetron PF 4 MG/2 ML Vial IVP PRN (23:31)
[2022-03-04] MEDS ORDERED: Ondansetron ODT 4 MG TAB PO PRN (23:31)
[2022-03-04] MEDS ORDERED: Acetaminophen 650 MG Suppository PR PRN (23:31)
[2022-03-04 23:37] LABS: ALT (SGPT) 31 U/L (8-55); AST (SGOT) 54 U/L (5-34); Albumin 3.2 g/dL (3.5-5.0); Alcohol 100 mg/dL (Less than 10); Alkaline Phosphatase 79 U/L (40-110); Anion Gap 11 mmol/L (10-20); BUN (Urea Nitrogen) 14 mg/dL (9.8-20.1); Bilirubin, Total 1.1 mg/dL (0.2-1.2); Calc. Creatinine Clearance 0 mL/min (70-130); Calcium 7.8 mg/dL (7.8-10.44); Carbon Dioxide 25 mmol/L (22-29); Chloride 108 mmol/L (98-107); Globulin 3.1 g/dL (2.4-3.5); Glucose 119 mg/dL (70-105); Potassium 4.4 mmol/L (3.5-5.1); Protein, Total 6.3 g/dL (6.0-8.3); Sodium 140 mmol/L (136-145)
[2022-03-04] MEDS ORDERED: Ketamine 50 MG/ML (10ML VIAL) ONE (23:44)
[2022-03-05] MEDS ORDERED: SUGAMMADEX SODIUM 200 MG/2 ML VIAL ONE (00:41)
[2022-03-05] MEDS ORDERED: Ondansetron PF 4 MG/2 ML Vial ONE ×2 (01:08→23:57)
[2022-03-05 01:23] LABS: #Lymphocytes 0.6 thou/uL (1.20-3.40); #Monocytes 0.6 thou/uL (0.11-0.59); #Neutrophils 4.7 thou/uL (1.40-6.50); %Basophils 0.1 % (0.0-1.0); %Eosinophils 0.3 % (0.0-10.0); %Lymphocytes 10.7 % (21.0-51.0); %Monocytes 9.3 % (0.0-10.0); %Neutrophils 79.6 % (42.0-75.0); Hemoglobin 11.1 g/dL (12.0-16.0); Mean Corpuscular HGB CONC 31.3 g/dL (32.0-36.0); Mean Corpuscular Hemoglobin 30.2 pg (27.0-31.0); Mean Corpuscular Volume 96.4 fL (78.0-98.0); Mean Platelet Volume 8.1 fL (7.4-10.4); Platelet Count 44 thou/uL (130-400); RBC Distribution Width 16.7 % (11.5-14.5); Red Blood Cell (RBC) Count 3.67 mill/uL (4.20-5.40); White Blood Cell (WBC) Count 5.9 thou/uL (4.8-10.8)
[2022-03-05] MEDS ORDERED: Multivitamins, Adult 10 ML, Folic Acid 1 MG, Thiamine HCl 100 MG in Dextrose 5 %-0.45 %... IV SCH (02:00)
[2022-03-05] MEDS ORDERED: Non-Formulary Medication 1 EACH PO PRN (02:08)
[2022-03-05] MEDS ORDERED: Ondansetron HCl/PF 4 MG/2 ML Vial IVP PRN (02:15)
[2022-03-05] MEDS ORDERED: Promethazine HCl 25 MG/ML VIAL IM/IV PRN (02:15)
[2022-03-05 02:43] VITALS: BMI 27.8
[2022-03-05 02:59] VITALS: TEMP 98.6
[2022-03-05 04:10] LABS: #Lymphocytes 0.5 thou/uL (1.20-3.40); #Monocytes 0.2 thou/uL (0.11-0.59); #Neutrophils 3.5 thou/uL (1.40-6.50); %Eosinophils 0.1 % (0.0-10.0); %Lymphocytes 11.4 % (21.0-51.0); %Monocytes 5.4 % (0.0-10.0); %Neutrophils 83.1 % (42.0-75.0); Mean Corpuscular HGB CONC 31.9 g/dL (32.0-36.0); Mean Corpuscular Hemoglobin 30.6 pg (27.0-31.0); Mean Corpuscular Volume 96.1 fL (78.0-98.0); Mean Platelet Volume 7.9 fL (7.4-10.4); Platelet Count 33 thou/uL (130-400); RBC Distribution Width 16.7 % (11.5-14.5); Red Blood Cell (RBC) Count 3.59 mill/uL (4.20-5.40); White Blood Cell (WBC) Count 4.2 thou/uL (4.8-10.8)
[2022-03-05 04:15] LABS: INR-International Normal Ratio 1.3; Prothrombin Time 16.5 sec (12.0-14.7)
[2022-03-05 04:25] LABS: Anion Gap 13 mmol/L (10-20); BUN (Urea Nitrogen) 11 mg/dL (9.8-20.1); Calc. Creatinine Clearance 98 mL/min (70-130); Calcium 7.4 mg/dL (7.8-10.44); Carbon Dioxide 21 mmol/L (22-29); Chloride 109 mmol/L (98-107); Glucose 152 mg/dL (70-105); Potassium 4.4 mmol/L (3.5-5.1); Sodium 139 mmol/L (136-145)
[2022-03-05] MEDS ORDERED: Succinylcholine 200 MG/10 ml SYRINGE FS ONE (23:57)
[2022-03-05] MEDS ORDERED: Dexamethasone 20 MG/5 ML VIAL ONE (23:57)
[2022-03-05] MEDS ORDERED: Rocuronium Bromide 10 MG/ML (10ML VIAL) ONE (23:57)
== END 2022-03-05 07:45 | disposition short-term general hospital (02) | DRG 300 ==
LOC: ERS 21:26 → CCU 22:37
PROVIDERS: ADMIT Student in an Organized Health Care Education/Training Program; ATTEND Student in an Organized Health Care Education/Training Program
PROC: 0DJ08ZZ Inspection of Upper Intestinal Tract, Via Natural or Artificial Opening Endoscopic (ICD-10-PCS; principal; 2022-03-05)
DX: I86.4 Gastric varices (principal); K76.6 Portal hypertension; R18.8 Other ascites; I85.10 Secondary esophageal varices without bleeding; K74.60 Unspecified cirrhosis of liver; Z20.822 Contact with and (suspected) exposure to COVID-19; M81.0 Age-related osteoporosis without current pathological fracture; G89.29 Other chronic pain; M54.9 Dorsalgia, unspecified; K22.70 Barrett's esophagus without dysplasia; K31.89 Other diseases of stomach and duodenum; F41.9 Anxiety disorder, unspecified; F10.10 Alcohol abuse, uncomplicated; I10 Essential (primary) hypertension; K72.90 Hepatic failure, unspecified without coma; K21.9 Gastro-esophageal reflux disease without esophagitis; Z87.11 Personal history of peptic ulcer disease; Z28.310 Unvaccinated for COVID-19; Z98.51 Tubal ligation status; Z98.890 Other specified postprocedural states; Z79.899 Other long term (current) drug therapy; Z98.49 Cataract extraction status, unspecified eye; Z85.038 Personal history of other malignant neoplasm of large intestine
CPT/HCPCS: 36415; 36430; 80048; 80053; 80307; 82140; 82274; 83605; 83880; 85025; 85610; 85730; 86850; 86900; 86901; 93005; 96361; 96365; 96375; 96376; C9113; J0171; J0696; J1100; J2354; J2370; J2405; J3411; J3490; J7042; J7050; U0003; U0005

== ENCOUNTER 2022-03-12 17:12 | Emergency (ER) | payer OTHER | END 2022-03-12 18:46 | disposition home or self-care (01) | LOC: ERS 17:12 | DX: S86.911A Strain of unspecified muscle(s) and tendon(s) at lower leg level, right leg, initial encounter (principal); K21.9 Gastro-esophageal reflux disease without esophagitis; M81.0 Age-related osteoporosis without current pathological fracture; Z79.899 Other long term (current) drug therapy ==

== ENCOUNTER 2022-03-15 14:17 | Emergency (ER) | payer OTHER ==
[2022-03-15 15:12] LABS: #Basophils 0.1 thou/uL (0.0-0.2); #Lymphocytes 0.9 thou/uL (1.20-3.40); #Monocytes 1.4 thou/uL (0.11-0.59); #Neutrophils 7.7 thou/uL (1.40-6.50); %Basophils 0.5 % (0.0-1.0); %Eosinophils 0.4 % (0.0-10.0); %Lymphocytes 8.8 % (21.0-51.0); %Monocytes 13.6 % (0.0-10.0); %Neutrophils 76.7 % (42.0-75.0); Hemoglobin 9.4 g/dL (12.0-16.0); Mean Corpuscular HGB CONC 32.7 g/dL (32.0-36.0); Mean Corpuscular Hemoglobin 29.9 pg (27.0-31.0); Mean Corpuscular Volume 91.3 fL (78.0-98.0); Mean Platelet Volume 6.5 fL (7.4-10.4); Platelet Count 140 thou/uL (130-400); RBC Distribution Width 16.5 % (11.5-14.5); Red Blood Cell (RBC) Count 3.15 mill/uL (4.20-5.40)
[2022-03-15 15:36] LABS: ALT (SGPT) 48 U/L (8-55); AST (SGOT) 49 U/L (5-34); Albumin 3.3 g/dL (3.5-5.0); Alkaline Phosphatase 125 U/L (40-110); Anion Gap 10 mmol/L (10-20); BUN (Urea Nitrogen) 9 mg/dL (9.8-20.1); Bilirubin, Total 1.9 mg/dL (0.2-1.2); Calc. Creatinine Clearance 0 mL/min (70-130); Calcium 8.3 mg/dL (7.8-10.44); Carbon Dioxide 22 mmol/L (22-29); Chloride 103 mmol/L (98-107); Globulin 3.1 g/dL (2.4-3.5); Glucose 99 mg/dL (70-105); Lipase 47 U/L (8-78); Potassium 3.2 mmol/L (3.5-5.1); Protein, Total 6.4 g/dL (6.0-8.3); Sodium 132 mmol/L (136-145)
[2022-03-15] MEDS ORDERED: Morphine 4 MG/ML VIAL ONE ×2 (16:05→17:25)
[2022-03-15 19:57] LABS: RBC Count-Automated (BF) 1249 /cu.mm; WBC/Nucleated-Auto (BF) 22 /cu.mm
[2022-03-15 19:58] LABS: Body Fluid Source Ascites Body Fluid; Clarity Cloudy/Turbid (Clear); Tube # CSF X 2
[2022-03-15 19:59] LABS: BF Color Yellow
[2022-03-15 20:01] LABS: BF Segmented Neutrophils 19 %; Cell Count Non Hematic 53 %; Lymphocytes 28 %
== END 2022-03-15 20:10 | disposition home or self-care (01) ==
LOC: ERS 14:17
DX: R18.8 Other ascites (principal); K21.9 Gastro-esophageal reflux disease without esophagitis; Z79.899 Other long term (current) drug therapy
CPT/HCPCS: 36415; 49082; 80053; 83690; 85025; 85060; 87070; 87205; 89051; 96372; J2270

== ENCOUNTER 2022-03-17 16:16 | Observation (INO) | payer OTHER ==
[~2022-03-17 16:16] MED LIST changes: -FLU VACC QS2020-21(6MOS UP)/PF 60 MCG/0.5 ML SYRINGE IM ONE; +Iopamidol-370 76% 500 ML 1 ML ONE
[2022-03-17 17:15] LABS: #Eosinphils 0.1 thou/uL (0.0-0.7); #Lymphocytes 0.8 thou/uL (1.20-3.40); #Monocytes 1.3 thou/uL (0.11-0.59); #Neutrophils 7.5 thou/uL (1.40-6.50); %Basophils 0.5 % (0.0-1.0); %Eosinophils 0.6 % (0.0-10.0); %Lymphocytes 8.1 % (21.0-51.0); %Monocytes 13.1 % (0.0-10.0); %Neutrophils 77.7 % (42.0-75.0); Hemoglobin 10.1 g/dL (12.0-16.0); Mean Corpuscular HGB CONC 31.3 g/dL (32.0-36.0); Mean Corpuscular Hemoglobin 29.6 pg (27.0-31.0); Mean Corpuscular Volume 94.5 fL (78.0-98.0); Mean Platelet Volume 6.9 fL (7.4-10.4); Platelet Count 132 thou/uL (130-400); RBC Distribution Width 16.5 % (11.5-14.5); Red Blood Cell (RBC) Count 3.43 mill/uL (4.20-5.40); White Blood Cell (WBC) Count 9.6 thou/uL (4.8-10.8)
[2022-03-17 17:38] LABS: ALT (SGPT) 38 U/L (8-55); AST (SGOT) 33 U/L (5-34); Albumin 3.4 g/dL (3.5-5.0); Alkaline Phosphatase 117 U/L (40-110); Anion Gap 13 mmol/L (10-20); BUN (Urea Nitrogen) 8 mg/dL (9.8-20.1); Bilirubin, Total 1.4 mg/dL (0.2-1.2); Calc. Creatinine Clearance 0 mL/min (70-130); Calcium 8.3 mg/dL (7.8-10.44); Carbon Dioxide 21 mmol/L (22-29); Chloride 107 mmol/L (98-107); Globulin 3.3 g/dL (2.4-3.5); Glucose 99 mg/dL (70-105); Lipase 40 U/L (8-78); Potassium 3.5 mmol/L (3.5-5.1); Protein, Total 6.7 g/dL (6.0-8.3); Sodium 137 mmol/L (136-145)
[2022-03-17 18:13] LABS: Bilirubin Negative (Negative); Blood, Urine Negative (Negative); Clarity Clear (Clear); Glucose, Urine (Dipstick) Normal (Negative); Ketone, Urine Trace mg/dL (Negative); Leukocyte Negative Leu/uL (Negative); Nitrite Negative (Negative); Protein, Urine (Dipstick) Negative (Neg-Trace); Urobilinogen Normal mg/dL (Less than 2)
[2022-03-17] MEDS ORDERED: Ondansetron PF 4 MG/2 ML Vial ONE (18:46)
[2022-03-17] MEDS ORDERED: Morphine 4 MG/ML VIAL ONE (18:46)
[2022-03-17 19:23] LABS: INR-International Normal Ratio 1.2; PTT 27.1 sec (22.9-36.1); Prothrombin Time 15.8 sec (12.0-14.7)
[2022-03-17 19:34] LABS: Magnesium 1.7 mg/dL (1.6-2.6)
[2022-03-17] MEDS ORDERED: Ondansetron PF 4 MG/2 ML Vial IVP PRN (21:51)
[2022-03-17] MEDS ORDERED: Acetaminophen 325 MG TAB PO PRN (21:51)
[2022-03-17] MEDS ORDERED: cefTRIAXone\\ROCEPHIN 2 GM VIAL ONE (22:09)
[2022-03-17 23:47] VITALS: BMI 28.3
[2022-03-18 07:42] LABS: #Lymphocytes 0.8 thou/uL (1.20-3.40); #Monocytes 0.8 thou/uL (0.11-0.59); #Neutrophils 5.7 thou/uL (1.40-6.50); %Basophils 0.1 % (0.0-1.0); %Eosinophils 0.6 % (0.0-10.0); %Lymphocytes 10.6 % (21.0-51.0); %Monocytes 11.1 % (0.0-10.0); %Neutrophils 77.5 % (42.0-75.0); Hemoglobin 8.9 g/dL (12.0-16.0); INR-International Normal Ratio 1.3; Mean Corpuscular HGB CONC 32.4 g/dL (32.0-36.0); Mean Corpuscular Hemoglobin 30.8 pg (27.0-31.0); Mean Corpuscular Volume 95.2 fL (78.0-98.0); Mean Platelet Volume 7.2 fL (7.4-10.4); Platelet Count 83 thou/uL (130-400); Prothrombin Time 16.1 sec (12.0-14.7); RBC Distribution Width 16.5 % (11.5-14.5); Red Blood Cell (RBC) Count 2.88 mill/uL (4.20-5.40); White Blood Cell (WBC) Count 7.4 thou/uL (4.8-10.8)
[2022-03-18 07:56] LABS: ALT (SGPT) 28 U/L (8-55); AST (SGOT) 23 U/L (5-34); Albumin 2.8 g/dL (3.5-5.0); Alkaline Phosphatase 94 U/L (40-110); Anion Gap 10 mmol/L (10-20); BUN (Urea Nitrogen) 7 mg/dL (9.8-20.1); Calc. Creatinine Clearance 111 mL/min (70-130); Calcium 8.1 mg/dL (7.8-10.44); Carbon Dioxide 20 mmol/L (22-29); Chloride 107 mmol/L (98-107); Globulin 2.8 g/dL (2.4-3.5); Glucose 85 mg/dL (70-105); Potassium 3.1 mmol/L (3.5-5.1); Protein, Total 5.6 g/dL (6.0-8.3); Sodium 134 mmol/L (136-145)
[2022-03-18] MEDS ORDERED: Potassium Chloride 20 MEQ TAB PO SCH (08:45)
[2022-03-18] MEDS ORDERED: Polyethylene Glycol 3350 17 GM Packet PO PRN (08:45)
[2022-03-18] MEDS ORDERED: Magnesium Oxide 400 MG TAB PO SCH (09:00)
[2022-03-18] MEDS ORDERED: Stress 600 With Zinc 1 TAB PO SCH (09:00)
[2022-03-18] MEDS ORDERED: Multivitamin W/ Minerals 1 TAB PO SCH (09:00)
[2022-03-18] MEDS ORDERED: Furosemide 40 MG TAB PO SCH (09:00)
[2022-03-18] MEDS ORDERED: Spironolactone 100 MG TAB PO SCH (09:00)
[2022-03-18] MEDS ORDERED: Rifaximin 550 MG TAB PO SCH (09:00)
[2022-03-18] MEDS ORDERED: Cholecalciferol 1,000 UNITS (25 MCG) TAB PO SCH (09:00)
[2022-03-18] MEDS ORDERED: Non-Formulary Item 1 EACH (Cholecalciferol (Vitamin D3) [Vitamin D] 1000 UNIT Capsule) PO SCH (09:00)
[2022-03-18] MEDS ORDERED: LACTULOSE 10 GM PO SCH (09:00)
[2022-03-18] MEDS ORDERED: Non-Formulary Item 1 EACH (Magnesium Oxide [Magnesium] 500 MG Capsule) PO SCH (09:00)
[2022-03-18] MEDS ORDERED: Folic Acid 1 MG TAB PO SCH (09:00)
[2022-03-18] MEDS ORDERED: Non-Formulary Item 1 EACH (Vitamin B Complex [Vitamin B Complex] 1 CAP Capsule) PO SCH (09:00)
[2022-03-18 11:42] VITALS: BP 122/65; TEMP 98.5
== END 2022-03-18 15:00 | disposition home or self-care (01) ==
LOC: ERS 16:16 → T4-B 21:45
PROVIDERS: ADMIT Internal Medicine; ATTEND Internal Medicine
DX: K70.31 Alcoholic cirrhosis of liver with ascites (principal); K76.6 Portal hypertension; K21.9 Gastro-esophageal reflux disease without esophagitis; M81.0 Age-related osteoporosis without current pathological fracture; Z87.11 Personal history of peptic ulcer disease; Z79.899 Other long term (current) drug therapy; Z20.822 Contact with and (suspected) exposure to COVID-19
CPT/HCPCS: 36415; 74177; 76705; 80053; 81003; 83605; 83690; 83735; 83880; 84484; 85025; 85610; 85730; 87040; 93005; 96374; 96375; G0378; J0696; J2270; J2405; Q9967; U0003; U0005

== ENCOUNTER → 2022-03-29 | Day surgery (SDC) | payer OTHER ==
[2022-03-28 15:46] VITALS: BMI 28.1
[~2022-03-29] MED LIST changes: -Iopamidol-370 76% 500 ML 1 ML ONE; +Lidocaine 1% PF 5 ML VIAL ONE; +Sodium Bicarbonate 2.5 MEQ/5 ML VIAL ONE
== END ==
LOC: ULT 13:16
PROVIDERS: ATTEND Physician Assistant Medical
DX: K70.31 Alcoholic cirrhosis of liver with ascites (principal); I85.10 Secondary esophageal varices without bleeding; F10.10 Alcohol abuse, uncomplicated; K21.9 Gastro-esophageal reflux disease without esophagitis; K72.90 Hepatic failure, unspecified without coma; I10 Essential (primary) hypertension; Z79.899 Other long term (current) drug therapy
CPT/HCPCS: 49083

== ENCOUNTER 2022-06-04 20:55 | Inpatient (IN) | payer OTHER ==
[2022-06-04] MEDS ORDERED: cefTRIAXone\\ROCEPHIN 1 GM VIAL ONE (21:22)
[2022-06-04] MEDS ORDERED: Pantoprazole 80 MG, Admixture Fee 1 EACH in Sodium Chloride 0.9% 100 ML IVPB SCH (21:45)
[2022-06-04] MEDS ORDERED: Octreotide Acetate 1,250 MCG in Sodium Chloride 0.9% 250 ML 250 ML IVPB SCH (21:45)
[2022-06-04 22:08] LABS: INR-International Normal Ratio 1.4; PTT 24.4 sec (22.9-36.1); Prothrombin Time 17.1 sec (12.0-14.7)
[2022-06-04 22:12] LABS: ALT (SGPT) 21 U/L (8-55); AST (SGOT) 39 U/L (5-34); Albumin 3.4 g/dL (3.5-5.0); Alkaline Phosphatase 74 U/L (40-110); Anion Gap 17 mmol/L (10-20); BUN (Urea Nitrogen) 25 mg/dL (9.8-20.1); Bilirubin, Total 2.1 mg/dL (0.2-1.2); Calc. Creatinine Clearance 0 mL/min (70-130); Calcium 8.3 mg/dL (7.8-10.44); Carbon Dioxide 19 mmol/L (22-29); Chloride 104 mmol/L (98-107); Estimated GFR 99; Globulin 2.9 g/dL (2.4-3.5); Glucose 141 mg/dL (70-105); Potassium 4.4 mmol/L (3.5-5.1); Protein, Total 6.3 g/dL (6.0-8.3); Sodium 136 mmol/L (136-145)
[2022-06-04 22:35] LABS: #Eosinphils 0.2 thou/uL (0.0-0.7); #Lymphocytes 0.8 thou/uL (1.20-3.40); #Monocytes 0.8 thou/uL (0.11-0.59); %Basophils 0.2 % (0.0-1.0); %Eosinophils 1.6 % (0.0-10.0); %Lymphocytes 7.2 % (21.0-51.0); %Monocytes 7.1 % (0.0-10.0); Hemoglobin 9.8 g/dL (12.0-16.0); Mean Corpuscular HGB CONC 33.9 g/dL (32.0-36.0); Mean Corpuscular Hemoglobin 28.8 pg (27.0-31.0); Mean Corpuscular Volume 84.9 fL (78.0-98.0); Mean Platelet Volume 8.7 fL (7.4-10.4); Platelet Count 48 thou/uL (130-400); Platelet Morphology Comment Appears Decreased; RBC Distribution Width 14.3 % (11.5-14.5); Red Blood Cell (RBC) Count 3.41 mill/uL (4.20-5.40); White Blood Cell (WBC) Count 10.7 thou/uL (4.8-10.8)
[2022-06-04 22:40] LABS: Bilirubin Negative (Negative); Blood, Urine Negative (Negative); Clarity Clear (Clear); Glucose, Urine (Dipstick) Normal (Negative); Ketone, Urine 40 mg/dL (Negative); Leukocyte Negative Leu/uL (Negative); Nitrite Negative (Negative); Protein, Urine (Dipstick) Negative (Neg-Trace); Specific Gravity, Urine 1.021 (1.002-1.036); Urobilinogen Normal mg/dL (Less than 2)
[2022-06-04] MEDS ORDERED: Morphine 4 MG/ML VIAL ONE (23:25)
[2022-06-04] MEDS ORDERED: Ondansetron PF 4 MG/2 ML Vial ONE (23:25)
[2022-06-04] MEDS ORDERED: Ondansetron ODT 4 MG TAB PO PRN (23:55)
[2022-06-04] MEDS ORDERED: Acetaminophen 650 MG Suppository PR PRN (23:55)
[2022-06-04] MEDS ORDERED: Acetaminophen 325 MG TAB PO PRN (23:55)
[2022-06-05 00:22] VITALS: BMI 27.5
[2022-06-05] MEDS: Ondansetron PF 4 MG/2 ML Vial IVP PRN ×2 (00:37→05:06)
[2022-06-05] MEDS ORDERED: Lorazepam 2 MG/ML VIAL IM PRN (01:06)
[2022-06-05] MEDS ORDERED: Lorazepam 1 MG TAB PO PRN (01:06)
[2022-06-05] MEDS ORDERED: Ondansetron ODT 4 MG TAB PO PRN (01:06)
[2022-06-05] MEDS ORDERED: Electrolyte Replacement Protocol 1 EACH FS SCH (01:15)
[2022-06-05 01:26] LABS: Hemoglobin 7.4 g/dL (12.0-16.0)
[2022-06-05] MEDS ORDERED: Morphine 2 MG/ML VIAL SLOW IVP SCH ×2 (01:30→04:00)
[2022-06-05] MEDS: Sodium Chloride 0.9% 1,000 ML IV SCH ×3 (01:31→20:34)
[2022-06-05] MEDS: Thiamine HCl 200 MG/2 ML VIAL SLOW IVP SCH (01:31)
[2022-06-05 01:32] LABS: Magnesium 1.6 mg/dL (1.6-2.6); Phosphorus 2.4 mg/dL (2.3-4.7)
[2022-06-05] MEDS: Lorazepam 1 MG TAB PO SCH ×4 (01:32→20:29)
[2022-06-05] MEDS ORDERED: Magnesium 2 GM/50 ML(in water) 2 GM in Premix Bag 1 BAG IVPB SCH (03:30)
[2022-06-05 04:13] LABS: #Monocytes 1.1 thou/uL (0.11-0.59); #Neutrophils 8.2 thou/uL (1.40-6.50); %Basophils 0.1 % (0.0-1.0); %Eosinophils 0.1 % (0.0-10.0); %Lymphocytes 9.4 % (21.0-51.0); %Monocytes 10.9 % (0.0-10.0); %Neutrophils 79.5 % (42.0-75.0); Hemoglobin 7.3 g/dL (12.0-16.0); Mean Corpuscular HGB CONC 33.5 g/dL (32.0-36.0); Mean Corpuscular Hemoglobin 28.8 pg (27.0-31.0); Mean Platelet Volume 8.7 fL (7.4-10.4); Platelet Count 101 thou/uL (130-400); RBC Distribution Width 14.2 % (11.5-14.5); Red Blood Cell (RBC) Count 2.53 mill/uL (4.20-5.40); White Blood Cell (WBC) Count 10.3 thou/uL (4.8-10.8)
[2022-06-05 04:17] LABS: ALT (SGPT) 19 U/L (8-55); AST (SGOT) 36 U/L (5-34); Albumin 2.9 g/dL (3.5-5.0); Alkaline Phosphatase 56 U/L (40-110); Anion Gap 15 mmol/L (10-20); BUN (Urea Nitrogen) 25 mg/dL (9.8-20.1); Bilirubin, Total 1.8 mg/dL (0.2-1.2); Calc. Creatinine Clearance 113 mL/min (70-130); Calcium 7.5 mg/dL (7.8-10.44); Carbon Dioxide 19 mmol/L (22-29); Chloride 107 mmol/L (98-107); Estimated GFR 103; Globulin 2.4 g/dL (2.4-3.5); Glucose 151 mg/dL (70-105); Potassium 4.5 mmol/L (3.5-5.1); Protein, Total 5.3 g/dL (6.0-8.3); Sodium 136 mmol/L (136-145)
[2022-06-05 04:57] LABS: SARS-CoV-2 NAA Rapid Test Not Detected (NotDetected)
[2022-06-05] MEDS ORDERED: Ketamine 50 MG/ML (10ML VIAL) ONE (07:22)
[2022-06-05] MEDS ORDERED: Midazolam HCl 2 mg/2 ml Vial ONE (07:45)
[2022-06-05] MEDS ORDERED: Fentanyl 100 MCG/2 ML VIAL ONE (07:46)
[2022-06-05] MEDS ORDERED: Lidocaine 1% MPF 2 ML VIAL ONE (08:03)
[2022-06-05] MEDS ORDERED: Rocuronium Bromide 10 MG/ML (10ML VIAL) ONE (08:03)
[2022-06-05] MEDS ORDERED: PROPOFOL 200 MG/20 ML VIAL ONE (08:03)
[2022-06-05] MEDS ORDERED: Succinylcholine 200 MG/10 ml SYRINGE FS ONE (08:03)
[2022-06-05] MEDS ORDERED: Pantoprazole 80 MG in Sodium Chloride 0.9% 100 ML IVPB SCH (09:00)
[2022-06-05] MEDS: Folic Acid 1 MG TAB PO SCH (10:45)
[2022-06-05] MEDS: Multivit, Therapeutic 1 TAB PO SCH (10:45)
[2022-06-05] MEDS: Octreotide Acetate 1,250 MCG in Sodium Chloride 0.9% 250 ML 250 ML IVPB SCH (13:04)
[2022-06-05 14:25] LABS: #Eosinphils 0.2 thou/uL (0.0-0.7); #Lymphocytes 1.6 thou/uL (1.20-3.40); #Monocytes 1.4 thou/uL (0.11-0.59); #Neutrophils 10.2 thou/uL (1.40-6.50); %Basophils 0.3 % (0.0-1.0); %Eosinophils 1.5 % (0.0-10.0); %Lymphocytes 12.1 % (21.0-51.0); %Monocytes 10.3 % (0.0-10.0); %Neutrophils 75.7 % (42.0-75.0); Hemoglobin 8.6 g/dL (12.0-16.0); Mean Corpuscular HGB CONC 34.6 g/dL (32.0-36.0); Mean Corpuscular Hemoglobin 30.3 pg (27.0-31.0); Mean Corpuscular Volume 87.7 fL (78.0-98.0); Mean Platelet Volume 7.7 fL (7.4-10.4); Platelet Count 134 thou/uL (130-400); RBC Distribution Width 14.4 % (11.5-14.5); Red Blood Cell (RBC) Count 2.83 mill/uL (4.20-5.40); White Blood Cell (WBC) Count 13.4 thou/uL (4.8-10.8)
[2022-06-05] MEDS: cefTRIAXone\\ROCEPHIN 1 GM in Sodium Chloride 0.9% 100 ML IVPB SCH (20:21)
[2022-06-05] MEDS: Pantoprazole 40 MG VIAL IVP SCH (20:21)
[2022-06-06] MEDS ORDERED: Lorazepam 1 MG TAB PO PRN (01:07)
[2022-06-06] MEDS: Lorazepam 1 MG TAB PO SCH ×4 (03:04→18:47)
[2022-06-06] MEDS: Thiamine HCl 200 MG/2 ML VIAL SLOW IVP SCH (03:10)
[2022-06-06 04:51] LABS: #Basophils 0.1 thou/uL (0.0-0.2); #Eosinphils 0.4 thou/uL (0.0-0.7); #Lymphocytes 1.5 thou/uL (1.20-3.40); #Monocytes 1.3 thou/uL (0.11-0.59); #Neutrophils 7.2 thou/uL (1.40-6.50); %Basophils 0.6 % (0.0-1.0); %Eosinophils 4.2 % (0.0-10.0); %Lymphocytes 14.3 % (21.0-51.0); %Monocytes 12.5 % (0.0-10.0); %Neutrophils 68.5 % (42.0-75.0); Mean Corpuscular HGB CONC 32.7 g/dL (32.0-36.0); Mean Corpuscular Hemoglobin 28.6 pg (27.0-31.0); Mean Corpuscular Volume 87.5 fL (78.0-98.0); Mean Platelet Volume 7.7 fL (7.4-10.4); Platelet Count 106 thou/uL (130-400); Platelet Morphology Comment Appears Decreased; RBC Distribution Width 14.7 % (11.5-14.5); Red Blood Cell (RBC) Count 2.45 mill/uL (4.20-5.40); White Blood Cell (WBC) Count 10.5 thou/uL (4.8-10.8)
[2022-06-06] MEDS: Folic Acid 1 MG TAB PO SCH (09:54)
[2022-06-06] MEDS: Multivit, Therapeutic 1 TAB PO SCH (09:55)
[2022-06-06] MEDS: Pantoprazole 40 MG VIAL IVP SCH ×2 (09:55→21:36)
[2022-06-06] MEDS: Sodium Chloride 0.9% 1,000 ML IV SCH ×2 (09:56→21:35)
[2022-06-06 11:54] LABS: Hemoglobin 6.8 g/dL (12.0-16.0)
[2022-06-06 14:44] VITALS: BP 124/69
[2022-06-06] MEDS: cefTRIAXone\\ROCEPHIN 1 GM in Sodium Chloride 0.9% 100 ML IVPB SCH (21:36)
[2022-06-07] MEDS ORDERED: Lorazepam 1 MG TAB PO PRN (01:07)
[2022-06-07] MEDS: Lorazepam 0.5 MG TAB PO SCH ×4 (01:51→18:47)
[2022-06-07] MEDS: Thiamine HCl 200 MG/2 ML VIAL SLOW IVP SCH (01:52)
[2022-06-07 04:05] LABS: #Eosinphils 0.5 thou/uL (0.0-0.7); #Lymphocytes 1.4 thou/uL (1.20-3.40); #Monocytes 1.1 thou/uL (0.11-0.59); #Neutrophils 6.6 thou/uL (1.40-6.50); %Basophils 0.3 % (0.0-1.0); %Eosinophils 4.8 % (0.0-10.0); %Lymphocytes 14.7 % (21.0-51.0); %Monocytes 11.1 % (0.0-10.0); %Neutrophils 68.9 % (42.0-75.0); Hemoglobin 7.9 g/dL (12.0-16.0); Mean Corpuscular HGB CONC 33.9 g/dL (32.0-36.0); Mean Corpuscular Hemoglobin 29.6 pg (27.0-31.0); Mean Corpuscular Volume 87.4 fL (78.0-98.0); Mean Platelet Volume 7.6 fL (7.4-10.4); Platelet Count 115 thou/uL (130-400); RBC Distribution Width 14.8 % (11.5-14.5); Red Blood Cell (RBC) Count 2.65 mill/uL (4.20-5.40); White Blood Cell (WBC) Count 9.6 thou/uL (4.8-10.8)
[2022-06-07] MEDS: Folic Acid 1 MG TAB PO SCH (09:49)
[2022-06-07] MEDS: Pantoprazole 40 MG VIAL IVP SCH ×2 (09:49→20:34)
[2022-06-07] MEDS: Multivit, Therapeutic 1 TAB PO SCH (09:49)
[2022-06-07] MEDS: Sodium Chloride 0.9% 1,000 ML IV SCH ×2 (09:52→21:56)
[2022-06-07] MEDS ORDERED: Spironolactone 100 MG TAB PO SCH (14:00)
[2022-06-07] MEDS ORDERED: Furosemide 20 MG TAB PO SCH (14:00)
[2022-06-07] MEDS: Octreotide Acetate 1,250 MCG in Sodium Chloride 0.9% 250 ML 250 ML IVPB SCH (15:10)
[2022-06-07] MEDS ORDERED: Sodium Bicarbonate 2.5 MEQ/5 ML VIAL ONE (15:33)
[2022-06-07] MEDS ORDERED: Lidocaine 1% MPF 2 ML VIAL ONE (15:33)
[2022-06-07] MEDS: cefTRIAXone\\ROCEPHIN 1 GM in Sodium Chloride 0.9% 100 ML IVPB SCH (20:35)
[2022-06-07] MEDS: Lorazepam 0.5 MG TAB PO PRN (22:34)
[2022-06-08 01:09] LABS: RBC Count-Automated (BF) 80 /cu.mm; WBC/Nucleated-Auto (BF) 91 /cu.mm
[2022-06-08 01:26] LABS: BF Color Yellow; Body Fluid Source Ascites Body Fluid; Clarity Clear (Clear); Tube # EDTA
[2022-06-08 01:33] LABS: BF Segmented Neutrophils 13 %; Cell Count Non Hematic 57 %; Lymphocytes 30 %
[2022-06-08] MEDS: Lorazepam 0.5 MG TAB PO PRN ×3 (04:01→15:38)
[2022-06-08 04:36] LABS: #Eosinphils 0.3 thou/uL (0.0-0.7); #Lymphocytes 1.3 thou/uL (1.20-3.40); #Neutrophils 5.4 thou/uL (1.40-6.50); %Basophils 0.5 % (0.0-1.0); %Eosinophils 3.6 % (0.0-10.0); %Lymphocytes 16.1 % (21.0-51.0); %Monocytes 12.8 % (0.0-10.0); Hemoglobin 7.6 g/dL (12.0-16.0); Mean Corpuscular Hemoglobin 30.6 pg (27.0-31.0); Mean Corpuscular Volume 90.1 fL (78.0-98.0); Mean Platelet Volume 8.1 fL (7.4-10.4); Platelet Count 110 thou/uL (130-400); RBC Distribution Width 15.5 % (11.5-14.5); Red Blood Cell (RBC) Count 2.49 mill/uL (4.20-5.40)
[2022-06-08] MEDS ORDERED: Furosemide 40 MG TAB PO SCH (07:30)
[2022-06-08] MEDS ORDERED: Spironolactone 100 MG TAB PO SCH (08:00)
[2022-06-08] MEDS ORDERED: Thiamine 100 MG TAB PO SCH (09:00)
[2022-06-08] MEDS: Multivit, Therapeutic 1 TAB PO SCH (10:31)
[2022-06-08] MEDS: Pantoprazole 40 MG VIAL IVP SCH (10:31)
[2022-06-08] MEDS: Folic Acid 1 MG TAB PO SCH (10:31)
[2022-06-08] MEDS: Sodium Chloride 0.9% 1,000 ML IV SCH (10:35)
[2022-06-08 15:41] VITALS: TEMP 98.5
== END 2022-06-08 17:21 | disposition home or self-care (01) | DRG 432 ==
LOC: ERS 20:55 → 2NO 22:50 → CCU 06-05 02:15 → IMCU/EMU 06-05 12:39
PROVIDERS: ADMIT Student in an Organized Health Care Education/Training Program; ATTEND Internal Medicine
PROC: 30233N1 Transfusion of Nonautologous Red Blood Cells into Peripheral Vein, Percutaneous Approach (ICD-10-PCS; principal; 2022-06-05)
PROC: 06L38CZ Occlusion of Esophageal Vein with Extraluminal Device, Via Natural or Artificial Opening Endoscopic (ICD-10-PCS; 2022-06-05)
PROC: 0W9G3ZZ Drainage of Peritoneal Cavity, Percutaneous Approach (ICD-10-PCS; 2022-06-07)
DX: K70.31 Alcoholic cirrhosis of liver with ascites (principal); I85.11 Secondary esophageal varices with bleeding; D62 Acute posthemorrhagic anemia; K76.6 Portal hypertension; Z20.822 Contact with and (suspected) exposure to COVID-19; F10.10 Alcohol abuse, uncomplicated; K21.9 Gastro-esophageal reflux disease without esophagitis; G89.29 Other chronic pain; M54.9 Dorsalgia, unspecified; I73.9 Peripheral vascular disease, unspecified; K31.89 Other diseases of stomach and duodenum; K22.70 Barrett's esophagus without dysplasia; K64.4 Residual hemorrhoidal skin tags; K72.90 Hepatic failure, unspecified without coma; F41.9 Anxiety disorder, unspecified; M81.0 Age-related osteoporosis without current pathological fracture; Z87.11 Personal history of peptic ulcer disease; Z79.899 Other long term (current) drug therapy; Z98.51 Tubal ligation status
CPT/HCPCS: 36415; 36430; 49083; 80053; 81003; 83735; 84100; 85025; 85060; 85610; 85730; 86850; 86900; 86901; 87070; 87205; 89051; 96365; 96375; C9113; J0696; J2250; J2270; J2354; J2405; J2704; J3010; J3411; J3475; J3490; J7050; P9016; U0002

== ENCOUNTER 2022-06-12 01:14 | Emergency (ER) | payer OTHER ==
[2022-06-12] MEDS ORDERED: Morphine 4 MG/ML VIAL ONE (01:52)
[2022-06-12] MEDS ORDERED: Ondansetron PF 4 MG/2 ML Vial ONE (01:52)
[2022-06-12 01:58] LABS: Hemoglobin 8.4 g/dL (12.0-16.0); Mean Corpuscular HGB CONC 34.1 g/dL (32.0-36.0); Mean Corpuscular Hemoglobin 30.1 pg (27.0-31.0); Mean Corpuscular Volume 88.3 fL (78.0-98.0); Mean Platelet Volume 8.3 fL (7.4-10.4); Platelet Count 121 thou/uL (130-400); RBC Distribution Width 15.6 % (11.5-14.5); Red Blood Cell (RBC) Count 2.78 mill/uL (4.20-5.40); White Blood Cell (WBC) Count 5.4 thou/uL (4.8-10.8)
[2022-06-12 02:06] LABS: INR-International Normal Ratio 1.3; PTT 27.4 sec (22.9-36.1); Prothrombin Time 15.9 sec (12.0-14.7)
[2022-06-12 02:19] LABS: ALT (SGPT) 23 U/L (8-55); AST (SGOT) 36 U/L (5-34); Albumin 3.1 g/dL (3.5-5.0); Alkaline Phosphatase 109 U/L (40-110); Anion Gap 13 mmol/L (10-20); BUN (Urea Nitrogen) 5 mg/dL (9.8-20.1); Bilirubin, Total 0.9 mg/dL (0.2-1.2); Calc. Creatinine Clearance 0 mL/min (70-130); Calcium 8.4 mg/dL (7.8-10.44); Carbon Dioxide 22 mmol/L (22-29); Chloride 106 mmol/L (98-107); Estimated GFR 90; Globulin 2.6 g/dL (2.4-3.5); Glucose 100 mg/dL (70-105); Lipase 34 U/L (8-78); Potassium 3.2 mmol/L (3.5-5.1); Protein, Total 5.7 g/dL (6.0-8.3); Sodium 138 mmol/L (136-145)
[2022-06-12 02:32] LABS: Anisocytosis SLIGHT = 6-15 cells (100X) (0-5/hpf); Band 1 % (5-11); Eosinophils 3 % (0-10); Hypochromia SLIGHT = 6-15 cells (100X) (0-5/hpf); Lymphocytes 20 % (21-51); MDiff Complete? YES; Monocytes 13 % (0-10); Neutrophil 63 % (42-75); Platelet Morphology Comment Appears Decreased; Polychromasia SLIGHT = 2-3 cells (100X) (0-2/hpf)
[2022-06-12] MEDS ORDERED: Lidocaine 1% MPF 2 ML VIAL ONE ×2 (02:53)
[2022-06-12] MEDS ORDERED: Lidocaine Viscous Sol 2% 15 ml UD Cup ONE (04:35)
[2022-06-12] MEDS ORDERED: Mag-Al 1200 mg/1200 mg/30 ML UDCUP ONE (04:35)
== END 2022-06-12 04:45 | disposition home or self-care (01) ==
LOC: ERS 01:14
DX: R18.8 Other ascites (principal); K21.9 Gastro-esophageal reflux disease without esophagitis; Z79.899 Other long term (current) drug therapy
CPT/HCPCS: 49083; 80053; 83690; 84484; 85025; 85610; 85730; 93005; 96374; 96375; J2270; J2405

== ENCOUNTER 2022-06-15 22:29 | Emergency (ER) | payer OTHER ==
[2022-06-15] MEDS ORDERED: Morphine 4 MG/ML VIAL ONE (23:41)
[2022-06-16 00:06] LABS: Hemoglobin 7.2 g/dL (12.0-16.0); Mean Corpuscular HGB CONC 31.6 g/dL (32.0-36.0); Mean Corpuscular Hemoglobin 27.8 pg (27.0-31.0); Mean Corpuscular Volume 88.1 fL (78.0-98.0); Mean Platelet Volume 8.9 fL (7.4-10.4); Platelet Count 118 thou/uL (130-400); RBC Distribution Width 16.5 % (11.5-14.5); Red Blood Cell (RBC) Count 2.59 mill/uL (4.20-5.40); White Blood Cell (WBC) Count 3.8 thou/uL (4.8-10.8)
[2022-06-16 00:23] LABS: ALT (SGPT) 13 U/L (8-55); AST (SGOT) 24 U/L (5-34); Albumin 2.8 g/dL (3.5-5.0); Alkaline Phosphatase 120 U/L (40-110); Anion Gap 10 mmol/L (10-20); BUN (Urea Nitrogen) 10 mg/dL (9.8-20.1); Bilirubin, Total 0.6 mg/dL (0.2-1.2); Calc. Creatinine Clearance 0 mL/min (70-130); Calcium 8.3 mg/dL (7.8-10.44); Carbon Dioxide 23 mmol/L (22-29); Chloride 105 mmol/L (98-107); Estimated GFR 99; Globulin 2.5 g/dL (2.4-3.5); Glucose 98 mg/dL (70-105); Lipase 24 U/L (8-78); Potassium 3.4 mmol/L (3.5-5.1); Protein, Total 5.3 g/dL (6.0-8.3); Sodium 135 mmol/L (136-145)
[2022-06-16 00:31] LABS: Anisocytosis SLIGHT = 6-15 cells (100X) (0-5/hpf); Band 1 % (5-11); Burr Cells SLIGHT = 2-5 cells (100X) (0-1/hpf); Eosinophils 2 % (0-10); Hypochromia SLIGHT = 6-15 cells (100X) (0-5/hpf); Large Platelets SLIGHT; Lymphocytes 24 % (21-51); MDiff Complete? YES; Monocytes 13 % (0-10); Neutrophil 59 % (42-75); Platelet Morphology Comment Appears Decreased; Polychromasia SLIGHT = 2-3 cells (100X) (0-2/hpf); Reactive Lymphocytes 1 % (0-10); Target Cells SLIGHT = 2-5 cells (100X) (0-1/hpf)
[2022-06-16] MEDS ORDERED: Lidocaine 1% PF 5 ML VIAL ONE (00:45)
[2022-06-16] MEDS ORDERED: Fentanyl 100 MCG/2 ML VIAL ONE (01:28)
== END 2022-06-16 03:03 | disposition home or self-care (01) ==
LOC: ERS 22:29
DX: K70.31 Alcoholic cirrhosis of liver with ascites (principal)
CPT/HCPCS: 36415; 49083; 80053; 83690; 85025; 96374; 96375; J2270; J3010

== ENCOUNTER 2022-06-17 13:15 | Emergency (ER) | payer OTHER ==
[~2022-06-17 13:15] MED LIST changes: +Iopamidol-370 76% 500 ML 1 ML ONE; -Lidocaine 1% PF 5 ML VIAL ONE; -Sodium Bicarbonate 2.5 MEQ/5 ML VIAL ONE
[2022-06-17] MEDS ORDERED: Ondansetron PF 4 MG/2 ML Vial ONE (14:20)
[2022-06-17] MEDS ORDERED: Morphine 4 MG/ML VIAL ONE (14:20)
[2022-06-17 15:02] LABS: Hemoglobin 7.4 g/dL (12.0-16.0); Mean Corpuscular HGB CONC 31.5 g/dL (32.0-36.0); Mean Corpuscular Hemoglobin 27.5 pg (27.0-31.0); Mean Corpuscular Volume 87.1 fL (78.0-98.0); Mean Platelet Volume 8.8 fL (7.4-10.4); Platelet Count 128 thou/uL (130-400); Red Blood Cell (RBC) Count 2.71 mill/uL (4.20-5.40); White Blood Cell (WBC) Count 3.9 thou/uL (4.8-10.8)
[2022-06-17 15:27] LABS: ALT (SGPT) 19 U/L (8-55); AST (SGOT) 31 U/L (5-34); Alkaline Phosphatase 111 U/L (40-110); Anion Gap 13 mmol/L (10-20); BUN (Urea Nitrogen) 5 mg/dL (9.8-20.1); Bilirubin, Total 0.8 mg/dL (0.2-1.2); Calc. Creatinine Clearance 0 mL/min (70-130); Calcium 8.2 mg/dL (7.8-10.44); Carbon Dioxide 21 mmol/L (22-29); Chloride 107 mmol/L (98-107); Estimated GFR 99; Globulin 2.7 g/dL (2.4-3.5); Glucose 96 mg/dL (70-105); Potassium 3.3 mmol/L (3.5-5.1); Protein, Total 5.7 g/dL (6.0-8.3); Sodium 138 mmol/L (136-145)
[2022-06-17 15:33] LABS: Band 2 % (5-11); Eosinophils 3 % (0-10); Hypochromia SLIGHT = 6-15 cells (100X) (0-5/hpf); Lymphocytes 20 % (21-51); MDiff Complete? YES; Monocytes 10 % (0-10); Neutrophil 59 % (42-75); Ovalocytes SLIGHT = 2-5 cells (100X) (0-1/hpf); Platelet Morphology Comment Appears Decreased; Polychromasia SLIGHT = 2-3 cells (100X) (0-2/hpf); Reactive Lymphocytes 4 % (0-10)
== END 2022-06-17 17:16 | disposition home or self-care (01) ==
LOC: ERS 13:15
DX: R18.8 Other ascites (principal); K21.9 Gastro-esophageal reflux disease without esophagitis; Z79.899 Other long term (current) drug therapy
CPT/HCPCS: 74177; 80053; 85025; 96374; 96375; J2270; J2405; Q9967

== ENCOUNTER 2022-06-21 12:52 | Inpatient (IN) | payer OTHER ==
[2022-06-21 13:58] LABS: #Eosinphils 0.1 thou/uL (0.0-0.7); #Lymphocytes 0.9 thou/uL (1.20-3.40); #Monocytes 0.6 thou/uL (0.11-0.59); #Neutrophils 3.4 thou/uL (1.40-6.50); %Basophils 0.2 % (0.0-1.0); %Eosinophils 2.9 % (0.0-10.0); %Lymphocytes 17.4 % (21.0-51.0); %Monocytes 12.6 % (0.0-10.0); %Neutrophils 66.9 % (42.0-75.0); Hemoglobin 7.9 g/dL (12.0-16.0); Mean Corpuscular HGB CONC 30.4 g/dL (32.0-36.0); Mean Corpuscular Hemoglobin 26.3 pg (27.0-31.0); Mean Corpuscular Volume 86.5 fL (78.0-98.0); Mean Platelet Volume 8.6 fL (7.4-10.4); Platelet Count 150 thou/uL (130-400); RBC Distribution Width 17.8 % (11.5-14.5); Red Blood Cell (RBC) Count 3.01 mill/uL (4.20-5.40); White Blood Cell (WBC) Count 5.1 thou/uL (4.8-10.8)
[2022-06-21] MEDS ORDERED: cefTRIAXone\\ROCEPHIN 2 GM VIAL ONE (14:41)
[2022-06-21] MEDS ORDERED: Fentanyl 100 MCG/2 ML VIAL ONE (14:41)
[2022-06-21 16:13] LABS: ALT (SGPT) 14 U/L (8-55); AST (SGOT) 24 U/L (5-34); Alkaline Phosphatase 131 U/L (40-110); Anion Gap 14 mmol/L (10-20); BUN (Urea Nitrogen) 5 mg/dL (9.8-20.1); Bilirubin, Total 0.5 mg/dL (0.2-1.2); Calc. Creatinine Clearance 0 mL/min (70-130); Calcium 8.3 mg/dL (7.8-10.44); Carbon Dioxide 17 mmol/L (22-29); Chloride 110 mmol/L (98-107); Estimated GFR 90; Globulin 2.9 g/dL (2.4-3.5); Glucose 85 mg/dL (70-105); Potassium 3.7 mmol/L (3.5-5.1); Protein, Total 5.9 g/dL (6.0-8.3); Sodium 137 mmol/L (136-145)
[2022-06-21] MEDS ORDERED: Morphine 4 MG/ML VIAL ONE (16:20)
[2022-06-21 16:44] LABS: INR-International Normal Ratio 1.3; PTT 29.9 sec (22.9-36.1); Prothrombin Time 15.9 sec (12.0-14.7)
[2022-06-21] MEDS ORDERED: Ondansetron ODT 4 MG TAB PO PRN (16:54)
[2022-06-21] MEDS ORDERED: Ondansetron PF 4 MG/2 ML Vial IVP PRN (16:54)
[2022-06-21] MEDS ORDERED: Furosemide 40 MG/4 ML VIAL SLOW IVP SCH (17:15)
[2022-06-21 18:04] LABS: Magnesium 1.6 mg/dL (1.6-2.6); Phosphorus 4.4 mg/dL (2.3-4.7)
[2022-06-21 19:47] VITALS: BMI 32.1
[2022-06-21] MEDS: Rifaximin 550 MG TAB PO SCH (19:58)
[2022-06-21] MEDS: Pantoprazole 40 MG VIAL IVP SCH (19:58)
[2022-06-21] MEDS: Morphine 4 MG/ML VIAL SLOW IVP PRN (19:59)
[2022-06-21] MEDS ORDERED: Temazepam 15 MG CAP PO SCH (21:00)
[2022-06-22] MEDS: Morphine 4 MG/ML VIAL SLOW IVP PRN ×4 (00:36→12:29)
[2022-06-22 02:13] LABS: SARS-CoV-2 NAA Rapid Test Not Detected (NotDetected)
[2022-06-22 06:36] LABS: #Basophils 0.1 thou/uL (0.0-0.2); #Eosinphils 0.2 thou/uL (0.0-0.7); #Monocytes 0.7 thou/uL (0.11-0.59); #Neutrophils 3.2 thou/uL (1.40-6.50); %Basophils 1.3 % (0.0-1.0); %Eosinophils 3.4 % (0.0-10.0); %Lymphocytes 19.3 % (21.0-51.0); %Monocytes 12.9 % (0.0-10.0); %Neutrophils 63.1 % (42.0-75.0); Hemoglobin 7.9 g/dL (12.0-16.0); Mean Corpuscular HGB CONC 31.5 g/dL (32.0-36.0); Mean Corpuscular Hemoglobin 26.9 pg (27.0-31.0); Mean Corpuscular Volume 85.6 fL (78.0-98.0); Mean Platelet Volume 8.1 fL (7.4-10.4); Platelet Count 165 thou/uL (130-400); RBC Distribution Width 17.7 % (11.5-14.5); Red Blood Cell (RBC) Count 2.95 mill/uL (4.20-5.40); White Blood Cell (WBC) Count 5.1 thou/uL (4.8-10.8)
[2022-06-22 06:59] LABS: ALT (SGPT) 16 U/L (8-55); AST (SGOT) 22 U/L (5-34); Albumin 2.9 g/dL (3.5-5.0); Alkaline Phosphatase 111 U/L (40-110); Anion Gap 10 mmol/L (10-20); BUN (Urea Nitrogen) 5 mg/dL (9.8-20.1); Bilirubin, Total 0.5 mg/dL (0.2-1.2); Calc. Creatinine Clearance 117 mL/min (70-130); Calcium 7.9 mg/dL (7.8-10.44); Carbon Dioxide 24 mmol/L (22-29); Chloride 105 mmol/L (98-107); Estimated GFR 99; Globulin 2.7 g/dL (2.4-3.5); Glucose 91 mg/dL (70-105); Potassium 3.4 mmol/L (3.5-5.1); Protein, Total 5.6 g/dL (6.0-8.3); Sodium 136 mmol/L (136-145)
[2022-06-22] MEDS: Calcium Carbonate 500 MG TAB PO SCH (08:41)
[2022-06-22] MEDS: Pantoprazole 40 MG VIAL IVP SCH ×2 (08:41→20:44)
[2022-06-22] MEDS: Cholecalciferol 1,000 UNITS (25 MCG) TAB PO SCH (08:41)
[2022-06-22] MEDS ORDERED: Spironolactone 100 MG TAB PO SCH (09:00)
[2022-06-22] MEDS ORDERED: Furosemide 40 MG TAB PO SCH (09:00)
[2022-06-22] MEDS: Folic Acid 1 MG TAB PO SCH (09:26)
[2022-06-22] MEDS: Potassium Chloride 10 MEQ TAB PO SCH (09:27)
[2022-06-22] MEDS: Rifaximin 550 MG TAB PO SCH ×2 (09:27→20:44)
[2022-06-22] MEDS: Magnesium Oxide 250 MG TAB PO SCH (09:27)
[2022-06-22] MEDS: Multivitamin W/ Minerals 1 TAB PO SCH (09:27)
[2022-06-22] MEDS: Stress 600 With Zinc 1 TAB PO SCH (09:27)
[2022-06-22] MEDS ORDERED: Sodium Bicarbonate 2.5 MEQ/5 ML VIAL ONE (13:01)
[2022-06-22] MEDS ORDERED: Lidocaine 2% PF 5 ML VIAL ONE ×2 (13:01→13:43)
[2022-06-22 15:09] LABS: Fluid, Glucose 87 mg/dL (Not Available); Fluid, LDH 40 U/L (Not Available)
[2022-06-22 15:11] LABS: RBC Count-Automated (BF) 91 /cu.mm; WBC/Nucleated-Auto (BF) 57 /cu.mm
[2022-06-22 15:43] LABS: BF Color Colorless; Body Fluid Source Paracentesis Fluid; Clarity Hazy (Clear); Tube # EDTA
[2022-06-22 15:45] LABS: BF Segmented Neutrophils 14 %; Cell Count Non Hematic 73 %; Lymphocytes 13 %
[2022-06-22] MEDS: cefTRIAXone\\ROCEPHIN 1 GM in Sodium Chloride 0.9% 100 ML IVPB SCH (16:16)
[2022-06-22] MEDS ORDERED: Furosemide 40 MG/4 ML VIAL SLOW IVP SCH (17:15)
[2022-06-22] MEDS: Spironolactone 100 MG TAB PO SCH (20:50)
[2022-06-23 07:15] LABS: ALT (SGPT) 9 U/L (8-55); AST (SGOT) 19 U/L (5-34); Albumin 2.4 g/dL (3.5-5.0); Alkaline Phosphatase 102 U/L (40-110); Anion Gap 13 mmol/L (10-20); BUN (Urea Nitrogen) 5 mg/dL (9.8-20.1); Bilirubin, Total 0.6 mg/dL (0.2-1.2); Calc. Creatinine Clearance 119 mL/min (70-130); Calcium 8.3 mg/dL (7.8-10.44); Carbon Dioxide 23 mmol/L (22-29); Chloride 107 mmol/L (98-107); Estimated GFR 101; Globulin 2.6 g/dL (2.4-3.5); Glucose 88 mg/dL (70-105); Potassium 3.7 mmol/L (3.5-5.1); Sodium 139 mmol/L (136-145)
[2022-06-23 07:37] LABS: Eosinophils 2 % (0-10); Hemoglobin 6.9 g/dL (12.0-16.0); Hypochromia SLIGHT = 6-15 cells (100X) (0-5/hpf); Lymphocytes 20 % (21-51); MDiff Complete? YES; Mean Corpuscular Hemoglobin 26.1 pg (27.0-31.0); Mean Corpuscular Volume 84.2 fL (78.0-98.0); Mean Platelet Volume 8.7 fL (7.4-10.4); Monocytes 17 % (0-10); Neutrophil 58 % (42-75); Platelet Count 119 thou/uL (130-400); Platelet Morphology Comment Appears Decreased; Polychromasia SLIGHT = 2-3 cells (100X) (0-2/hpf); RBC Distribution Width 17.8 % (11.5-14.5); Reactive Lymphocytes 1 % (0-10); Red Blood Cell (RBC) Count 2.65 mill/uL (4.20-5.40); White Blood Cell (WBC) Count 3.3 thou/uL (4.8-10.8)
[2022-06-23] MEDS: Multivitamin W/ Minerals 1 TAB PO SCH (08:06)
[2022-06-23] MEDS: Magnesium Oxide 250 MG TAB PO SCH (08:06)
[2022-06-23] MEDS: Rifaximin 550 MG TAB PO SCH (08:06)
[2022-06-23] MEDS: Cholecalciferol 1,000 UNITS (25 MCG) TAB PO SCH (08:06)
[2022-06-23] MEDS: Furosemide 40 MG TAB PO SCH ×2 (08:06→12:48)
[2022-06-23] MEDS: Folic Acid 1 MG TAB PO SCH (08:06)
[2022-06-23] MEDS: Potassium Chloride 10 MEQ TAB PO SCH (08:06)
[2022-06-23] MEDS: Stress 600 With Zinc 1 TAB PO SCH (08:07)
[2022-06-23] MEDS: Calcium Carbonate 500 MG TAB PO SCH (08:07)
[2022-06-23] MEDS: Pantoprazole 40 MG VIAL IVP SCH (08:59)
[2022-06-23] MEDS: Spironolactone 100 MG TAB PO SCH (08:59)
[2022-06-23 11:23] VITALS: BP 105/63; TEMP 98.7
[2022-06-23] MEDS ORDERED: Furosemide 40 MG/4 ML VIAL SLOW IVP SCH (12:00)
[2022-06-23] MEDS: cefTRIAXone\\ROCEPHIN 1 GM in Sodium Chloride 0.9% 100 ML IVPB SCH (14:09)
[2022-06-23 15:08] LABS: Hemoglobin 8.8 g/dL (12.0-16.0); Mean Corpuscular HGB CONC 31.7 g/dL (32.0-36.0); Mean Corpuscular Hemoglobin 26.8 pg (27.0-31.0); Mean Corpuscular Volume 84.5 fL (78.0-98.0); Mean Platelet Volume 8.4 fL (7.4-10.4); Platelet Count 117 thou/uL (130-400); RBC Distribution Width 17.5 % (11.5-14.5); Red Blood Cell (RBC) Count 3.27 mill/uL (4.20-5.40); White Blood Cell (WBC) Count 3.5 thou/uL (4.8-10.8)
== END 2022-06-23 16:00 | disposition home or self-care (01) | DRG 433 ==
LOC: ERS 12:52 → T4-A 16:10
PROVIDERS: ADMIT Family Medicine; ATTEND Internal Medicine
PROC: 0W9G3ZZ Drainage of Peritoneal Cavity, Percutaneous Approach (ICD-10-PCS; 2022-06-22)
PROC: 30233N1 Transfusion of Nonautologous Red Blood Cells into Peripheral Vein, Percutaneous Approach (ICD-10-PCS; principal; 2022-06-23)
DX: K70.31 Alcoholic cirrhosis of liver with ascites (principal); E46 Unspecified protein-calorie malnutrition; L76.22 Postprocedural hemorrhage of skin and subcutaneous tissue following other procedure; I85.00 Esophageal varices without bleeding; K21.9 Gastro-esophageal reflux disease without esophagitis; M81.0 Age-related osteoporosis without current pathological fracture; M54.9 Dorsalgia, unspecified; G89.29 Other chronic pain; D64.9 Anemia, unspecified; K27.9 Peptic ulcer, site unspecified, unspecified as acute or chronic, without hemorrhage or perforation; F10.10 Alcohol abuse, uncomplicated; Z98.51 Tubal ligation status; Z79.899 Other long term (current) drug therapy; Z98.890 Other specified postprocedural states
CPT/HCPCS: 36415; 36430; 49083; 71045; 80053; 82105; 82140; 82274; 82945; 83605; 83615; 83690; 83735; 84100; 85025; 85060; 85610; 85730; 86850; 86900; 86901; 87070; 87205; 89051; 96365; 96375; 97139; C9113; J0696; J1940; J2001; J2270; J3010; J3490; P9016; U0002

== ENCOUNTER 2022-06-28 08:18 | Day surgery (SDC) | payer OTHER ==
[2022-06-27 10:37] VITALS: BMI 28.3
[2022-06-28] MEDS ORDERED: PROPOFOL 200 MG/20 ML VIAL ONE (09:46)
[2022-06-28] MEDS ORDERED: Lidocaine 1% MPF 2 ML VIAL ONE (09:46)
[2022-06-28 11:18] LABS: Anion Gap 13 mmol/L (10-20); BUN (Urea Nitrogen) 7 mg/dL (9.8-20.1); Calc. Creatinine Clearance 103 mL/min (70-130); Calcium 8.9 mg/dL (7.8-10.44); Carbon Dioxide 20 mmol/L (22-29); Chloride 107 mmol/L (98-107); Estimated GFR 99; Glucose 90 mg/dL (70-105); Potassium 3.8 mmol/L (3.5-5.1); Sodium 136 mmol/L (136-145)
== END 2022-06-28 11:10 | disposition home or self-care (01) ==
LOC: SDC 08:18
PROVIDERS: ATTEND Internal Medicine Gastroenterology
PROC: 0DJ08ZZ Inspection of Upper Intestinal Tract, Via Natural or Artificial Opening Endoscopic (ICD-10-PCS; principal; 2022-06-28)
DX: K22.70 Barrett's esophagus without dysplasia (principal); K70.30 Alcoholic cirrhosis of liver without ascites; K76.6 Portal hypertension; K31.89 Other diseases of stomach and duodenum; K21.9 Gastro-esophageal reflux disease without esophagitis; F10.11 Alcohol abuse, in remission; I10 Essential (primary) hypertension; D64.9 Anemia, unspecified; Z79.899 Other long term (current) drug therapy
CPT/HCPCS: 36415; 80048; J2704

== ENCOUNTER 2022-07-07 12:40 | Day surgery (SDC) | payer OTHER ==
[2022-07-07] MEDS ORDERED: Lidocaine 2% PF 5 ML VIAL ONE (12:50)
[2022-07-07] MEDS ORDERED: Sodium Bicarbonate 2.5 MEQ/5 ML VIAL ONE (12:50)
[2022-07-07] MEDS ORDERED: Albumin 25% 0 ML ONE (12:50)
== END 2022-07-07 13:45 | disposition home or self-care (01) ==
LOC: ULT 12:40
PROVIDERS: ATTEND Physician Assistant Medical
PROC: 0W9G3ZZ Drainage of Peritoneal Cavity, Percutaneous Approach (ICD-10-PCS; principal; 2022-07-07)
PROC: BW40ZZZ Ultrasonography of Abdomen (ICD-10-PCS; principal; 2022-07-07)
DX: R18.8 Other ascites (principal)
CPT/HCPCS: 49083; J2001; P9047

== ENCOUNTER 2022-07-26 19:31 | Emergency (ER) | payer OTHER ==
[2022-07-26] MEDS ORDERED: Ibuprofen 800 MG TAB ONE (20:45)
[2022-07-26 21:02] LABS: #Eosinphils 0.1 thou/uL (0.0-0.7); #Lymphocytes 1.2 thou/uL (1.20-3.40); #Monocytes 0.7 thou/uL (0.11-0.59); #Neutrophils 4.1 thou/uL (1.40-6.50); %Basophils 0.6 % (0.0-1.0); %Lymphocytes 19.9 % (21.0-51.0); %Neutrophils 66.5 % (42.0-75.0); Hemoglobin 8.6 g/dL (12.0-16.0); Mean Corpuscular Hemoglobin 24.2 pg (27.0-31.0); Mean Corpuscular Volume 78.1 fL (78.0-98.0); Mean Platelet Volume 10.3 fL (7.4-10.4); Platelet Count 91 thou/uL (130-400); RBC Distribution Width 17.8 % (11.5-14.5); Red Blood Cell (RBC) Count 3.55 mill/uL (4.20-5.40); White Blood Cell (WBC) Count 6.1 thou/uL (4.8-10.8)
[2022-07-26 21:09] LABS: INR-International Normal Ratio 1.2; PTT 29.2 sec (22.9-36.1); Prothrombin Time 15.5 sec (12.0-14.7)
[2022-07-26] MEDS ORDERED: Ketorolac Tromethamine 30 MG/ML VIAL ONE (21:10)
[2022-07-26 21:14] LABS: Anion Gap 16 mmol/L (10-20); BUN (Urea Nitrogen) 4 mg/dL (9.8-20.1); Calc. Creatinine Clearance 0 mL/min (70-130); Carbon Dioxide 20 mmol/L (22-29); Chloride 107 mmol/L (98-107); Potassium 3.5 mmol/L (3.5-5.1); Sodium 139 mmol/L (136-145)
[2022-07-26 21:15] LABS: ALT (SGPT) 15 U/L (8-55); AST (SGOT) 31 U/L (5-34); Albumin 3.5 g/dL (3.5-5.0); Alkaline Phosphatase 113 U/L (40-110); Bilirubin, Total 0.8 mg/dL (0.2-1.2); Calcium 8.6 mg/dL (7.8-10.44); Estimated GFR 103; Globulin 3.1 g/dL (2.4-3.5); Glucose 94 mg/dL (70-105); Protein, Total 6.6 g/dL (6.0-8.3)
[2022-07-26 21:33] LABS: Anisocytosis SLIGHT = 6-15 cells (100X) (0-5/hpf); Hypochromia SLIGHT = 6-15 cells (100X) (0-5/hpf); Polychromasia SLIGHT = 2-3 cells (100X) (0-2/hpf)
== END 2022-07-26 21:56 | disposition left against medical advice (07) ==
LOC: ERS 19:31
DX: K70.31 Alcoholic cirrhosis of liver with ascites (principal); K21.9 Gastro-esophageal reflux disease without esophagitis
CPT/HCPCS: 36415; 80053; 85025; 85610; 85730; 96374; J1885

== ENCOUNTER 2022-07-28 02:54 | Emergency (ER) | payer OTHER ==
[2022-07-28] MEDS ORDERED: Dicyclomine 20 MG/2 ML VIAL ONE (03:39)
[2022-07-28] MEDS ORDERED: Furosemide 40 MG/4 ML VIAL ONE (03:39)
[2022-07-28 04:20] LABS: Mean Corpuscular HGB CONC 30.9 g/dL (32.0-36.0); Mean Corpuscular Hemoglobin 23.9 pg (27.0-31.0); Mean Corpuscular Volume 77.4 fL (78.0-98.0); RBC Distribution Width 17.8 % (11.5-14.5); Red Blood Cell (RBC) Count 3.35 mill/uL (4.20-5.40); White Blood Cell (WBC) Count 3.9 thou/uL (4.8-10.8)
[2022-07-28 04:36] LABS: INR-International Normal Ratio 1.3; Prothrombin Time 16.4 sec (12.0-14.7)
[2022-07-28 04:45] LABS: #Eosinphils 0.2 thou/uL (0.0-0.7); #Monocytes 0.5 thou/uL (0.11-0.59); #Neutrophils 2.2 thou/uL (1.40-6.50); %Basophils 0.2 % (0.0-1.0); %Eosinophils 4.2 % (0.0-10.0); %Lymphocytes 25.2 % (21.0-51.0); %Monocytes 13.9 % (0.0-10.0); %Neutrophils 56.6 % (42.0-75.0); Mean Platelet Volume 10.8 fL (7.4-10.4); Platelet Count 64 thou/uL (130-400)
[2022-07-28 04:51] LABS: ALT (SGPT) 13 U/L (8-55); AST (SGOT) 29 U/L (5-34); Albumin 3.4 g/dL (3.5-5.0); Alkaline Phosphatase 102 U/L (40-110); Anion Gap 15 mmol/L (10-20); BUN (Urea Nitrogen) Less than 4 mg/dL (9.8-20.1); Bilirubin, Total 0.8 mg/dL (0.2-1.2); Calc. Creatinine Clearance 0 mL/min (70-130); Calcium 8.2 mg/dL (7.8-10.44); Carbon Dioxide 19 mmol/L (22-29); Chloride 107 mmol/L (98-107); Estimated GFR 105; Globulin 3.1 g/dL (2.4-3.5); Glucose 98 mg/dL (70-105); Lipase 20 U/L (8-78); Potassium 3.6 mmol/L (3.5-5.1); Protein, Total 6.5 g/dL (6.0-8.3); Sodium 137 mmol/L (136-145)
[2022-07-28] MEDS ORDERED: Morphine 4 MG/ML VIAL ONE (05:03)
== END 2022-07-28 06:06 | disposition home or self-care (01) ==
LOC: ERS 02:54
DX: R18.8 Other ascites (principal); K21.9 Gastro-esophageal reflux disease without esophagitis; Z79.899 Other long term (current) drug therapy
CPT/HCPCS: 36415; 74177; 80053; 83690; 85025; 85610; 85730; 96372; 96374; 96375; J1940; J2270

== ENCOUNTER 2022-07-31 09:05 | Inpatient (IN) | payer OTHER ==
[2022-07-31] MEDS ORDERED: Naloxone HCl 0.4 mg/ml Vial ONE ×2 (09:21→09:24)
[2022-07-31 09:40] LABS: Hemoglobin 7.9 g/dL (12.0-16.0); Mean Corpuscular HGB CONC 29.9 g/dL (32.0-36.0); Mean Corpuscular Hemoglobin 23.5 pg (27.0-31.0); Mean Corpuscular Volume 78.7 fL (78.0-98.0); Mean Platelet Volume 9.4 fL (7.4-10.4); Platelet Count 71 thou/uL (130-400); RBC Distribution Width 17.8 % (11.5-14.5); Red Blood Cell (RBC) Count 3.37 mill/uL (4.20-5.40); White Blood Cell (WBC) Count 2.4 thou/uL (4.8-10.8)
[2022-07-31] MEDS ORDERED: Thiamine HCl 200 MG/2 ML VIAL IM SCH (09:45)
[2022-07-31 10:03] LABS: ALT (SGPT) 16 U/L (8-55); AST (SGOT) 41 U/L (5-34); Albumin 3.4 g/dL (3.5-5.0); Alkaline Phosphatase 95 U/L (40-110); Anion Gap 16 mmol/L (10-20); BUN (Urea Nitrogen) 4 mg/dL (9.8-20.1); Bilirubin, Total 0.6 mg/dL (0.2-1.2); Calc. Creatinine Clearance 0 mL/min (70-130); Calcium 8.2 mg/dL (7.8-10.44); Carbon Dioxide 17 mmol/L (22-29); Chloride 111 mmol/L (98-107); Estimated GFR 105; Globulin 3.1 g/dL (2.4-3.5); Glucose 102 mg/dL (70-105); Lipase 31 U/L (8-78); Magnesium 1.8 mg/dL (1.6-2.6); Protein, Total 6.5 g/dL (6.0-8.3); Sodium 140 mmol/L (136-145)
[2022-07-31 10:04] LABS: Alcohol 337 mg/dL (Less than 10); Salicylate Less than 8.0 mg/dL (15.0-30.0)
[2022-07-31 10:10] LABS: MDiff Complete? YES
[2022-07-31 10:11] LABS: Anisocytosis SLIGHT = 6-15 cells (100X) (0-5/hpf); Band 4 % (5-11); Eosinophils 4 % (0-10); Hypochromia SLIGHT = 6-15 cells (100X) (0-5/hpf); Lymphocytes 43 % (21-51); Monocytes 13 % (0-10); Neutrophil 34 % (42-75); Platelet Morphology Comment Appears Decreased; Polychromasia SLIGHT = 2-3 cells (100X) (0-2/hpf); Reactive Lymphocytes 1 % (0-10)
[2022-07-31] MEDS ORDERED: Ondansetron PF 4 MG/2 ML Vial ONE (10:23)
[2022-07-31 10:45] LABS: Bilirubin Negative (Negative); Blood, Urine Negative (Negative); Clarity Clear (Clear); Glucose, Urine (Dipstick) Normal (Negative); Ketone, Urine Negative (Negative); Leukocyte Negative Leu/uL (Negative); Nitrite Negative (Negative); Protein, Urine (Dipstick) Negative (Neg-Trace); Specific Gravity, Urine 1.006 (1.002-1.036); Urobilinogen Normal mg/dL (Less than 2); pH, Urine 5.5 (5.0-9.0)
[2022-07-31 10:56] LABS: Analyzer IN Cardio ER; CO2 Tension 41.1 mmHg (35.0-45.0); Calcium, Ionized (arterial) 1.14 mmol/L (1.12-1.30); Carboxyhemoglobin (COHb) 0.3 gm% (0.0-3.0); Hemoglobin (Hb) 8.5 g/dL (12.0-16.0); O2 Tension (PaO2), arterial 144.7 mmHg (80.0-100.0); Potassium - ABG Lab 3.91 mmol/L (3.70-5.30)
[2022-07-31 10:59] LABS: Puncture Site RRA
[2022-07-31 11:05] LABS: Amphetamine Not Detected (NotDetected); Barbiturates Screen Detected (NotDetected); Benzodiazepine Screen Detected (NotDetected); Cocaine Metabolite Screen Not Detected (NotDetected); Methadone Not Detected (NotDetected); Methamphetamine Not Detected (NotDetected); Opiate Screen Not Detected (NotDetected); Oxycodone Screen Not Detected (NotDetected); Phencyclidine (PCP) Not Detected (NotDetected); THC/Cannabinoid Screen Not Detected (NotDetected); Tricyclic Screen Not Detected (NotDetected)
[2022-07-31] MEDS ORDERED: Electrolyte Replacement Protocol 1 EACH FS SCH (11:15)
[2022-07-31] MEDS ORDERED: Magnesium 2 GM/50 ML BAG (IN WATER) ONE (11:19)
[2022-07-31 11:36] LABS: Phosphorus 4.4 mg/dL (2.3-4.7)
[2022-07-31 11:43] LABS: INR-International Normal Ratio 1.3; Prothrombin Time 16.6 sec (12.0-14.7)
[2022-07-31] MEDS ORDERED: Ondansetron ODT 4 MG TAB PO PRN (11:44)
[2022-07-31] MEDS ORDERED: Ondansetron PF 4 MG/2 ML Vial IVP PRN (11:44)
[2022-07-31] MEDS: D5 1/2 NS w/20 mEq KCL 1,000 ML IV SCH (14:04)
[2022-07-31] MEDS: Pantoprazole 40 MG VIAL IVP SCH (20:09)
[2022-07-31] MEDS ORDERED: Lorazepam 2 MG/ML VIAL SLOW IVP SCH (21:00)
[2022-08-01 05:02] LABS: Anion Gap 8 mmol/L (10-20); BUN (Urea Nitrogen) 5 mg/dL (9.8-20.1); Calc. Creatinine Clearance 0 mL/min (70-130); Calcium 7.7 mg/dL (7.8-10.44); Carbon Dioxide 22 mmol/L (22-29); Chloride 106 mmol/L (98-107); Estimated GFR 104; Glucose 96 mg/dL (70-105); Sodium 132 mmol/L (136-145)
[2022-08-01 05:19] LABS: Band 2 % (5-11); Eosinophils 2 % (0-10); Hemoglobin 6.8 g/dL (12.0-16.0); Hypochromia SLIGHT = 6-15 cells (100X) (0-5/hpf); Lymphocytes 14 % (21-51); MDiff Complete? YES; Mean Corpuscular HGB CONC 30.3 g/dL (32.0-36.0); Mean Corpuscular Hemoglobin 23.8 pg (27.0-31.0); Mean Corpuscular Volume 78.6 fL (78.0-98.0); Mean Platelet Volume 10.5 fL (7.4-10.4); Monocytes 22 % (0-10); Neutrophil 60 % (42-75); Platelet Count 43 thou/uL (130-400); Platelet Morphology Comment Appears Decreased; RBC Distribution Width 17.3 % (11.5-14.5); Red Blood Cell (RBC) Count 2.84 mill/uL (4.20-5.40); White Blood Cell (WBC) Count 2.1 thou/uL (4.8-10.8)
[2022-08-01] MEDS: Lorazepam 1 MG TAB PO PRN ×3 (05:50→21:34)
[2022-08-01 09:32] LABS: Reticulocyte Count 2.9 % (0.5-1.5)
[2022-08-01 09:46] LABS: Iron Binding Capacity, Total 420 mcg/dL (265-497)
[2022-08-01 09:47] LABS: Iron 29 ug/dL (50-170)
[2022-08-01] MEDS: D5 1/2 NS w/20 mEq KCL 1,000 ML IV SCH (11:14)
[2022-08-01] MEDS: Thiamine HCl 200 MG/2 ML VIAL SLOW IVP SCH (11:16)
[2022-08-01] MEDS: Multivit, Therapeutic 1 TAB PO SCH (11:16)
[2022-08-01] MEDS: Folic Acid 1 MG TAB PO SCH (11:17)
[2022-08-01] MEDS: Pantoprazole 40 MG VIAL IVP SCH ×2 (11:17→21:34)
[2022-08-01 12:37] VITALS: BMI 26.4
[2022-08-01] MEDS ORDERED: Lidocaine 2% PF 5 ML VIAL ONE (12:45)
[2022-08-01] MEDS ORDERED: Sodium Bicarbonate 2.5 MEQ/5 ML VIAL ONE (12:45)
[2022-08-01] MEDS ORDERED: Temazepam 15 MG CAP PO SCH (21:00)
[2022-08-02] MEDS: D5 1/2 NS w/20 mEq KCL 1,000 ML IV SCH (04:46)
[2022-08-02 05:10] LABS: Anion Gap 11 mmol/L (10-20); BUN (Urea Nitrogen) 5 mg/dL (9.8-20.1); Calc. Creatinine Clearance 118 mL/min (70-130); Carbon Dioxide 20 mmol/L (22-29); Chloride 107 mmol/L (98-107); Estimated GFR 105; Glucose 116 mg/dL (70-105); Potassium 3.5 mmol/L (3.5-5.1); Sodium 134 mmol/L (136-145)
[2022-08-02 05:42] LABS: Anisocytosis SLIGHT = 6-15 cells (100X) (0-5/hpf); Band 2 % (5-11); Eosinophils 1 % (0-10); Hemoglobin 8.7 g/dL (12.0-16.0); Lymphocytes 17 % (21-51); MDiff Complete? YES; Mean Corpuscular HGB CONC 30.9 g/dL (32.0-36.0); Mean Corpuscular Hemoglobin 25.1 pg (27.0-31.0); Mean Platelet Volume 11.1 fL (7.4-10.4); Monocytes 8 % (0-10); Neutrophil 72 % (42-75); Platelet Count 51 thou/uL (130-400); Platelet Morphology Comment Appears Decreased; RBC Distribution Width 17.6 % (11.5-14.5); Red Blood Cell (RBC) Count 3.47 mill/uL (4.20-5.40); White Blood Cell (WBC) Count 2.8 thou/uL (4.8-10.8)
[2022-08-02] MEDS ORDERED: Ferrous Sulfate 325 MG TAB PO SCH (08:00)
[2022-08-02] MEDS ORDERED: Potassium Chloride 20 MEQ TAB PO SCH (08:00)
[2022-08-02] MEDS: Multivit, Therapeutic 1 TAB PO SCH (11:20)
[2022-08-02] MEDS: Pantoprazole 40 MG VIAL IVP SCH (11:20)
[2022-08-02] MEDS: Folic Acid 1 MG TAB PO SCH (11:20)
[2022-08-02] MEDS: Thiamine HCl 200 MG/2 ML VIAL SLOW IVP SCH (11:25)
[2022-08-02 12:45] VITALS: BP 113/61; TEMP 98.6
[2022-08-03] MEDS ORDERED: Thiamine 100 MG TAB PO SCH (09:00)
== END 2022-08-02 14:40 | disposition home or self-care (01) | DRG 432 ==
LOC: ERS 09:05 → 2NO 12:31 → OBSVTOIN 08-01 11:55
PROVIDERS: ADMIT Internal Medicine; ATTEND Hospitalist
PROC: 30233N1 Transfusion of Nonautologous Red Blood Cells into Peripheral Vein, Percutaneous Approach (ICD-10-PCS; principal; 2022-08-01)
PROC: 0W9G3ZZ Drainage of Peritoneal Cavity, Percutaneous Approach (ICD-10-PCS; 2022-08-01)
PROC: 0T9B70Z Drainage of Bladder with Drainage Device, Via Natural or Artificial Opening (ICD-10-PCS; 2022-08-01)
DX: K70.31 Alcoholic cirrhosis of liver with ascites (principal); G92.9 Unspecified toxic encephalopathy; D61.818 Other pancytopenia; K51.90 Ulcerative colitis, unspecified, without complications; F10.129 Alcohol abuse with intoxication, unspecified; K21.9 Gastro-esophageal reflux disease without esophagitis; G89.29 Other chronic pain; M81.0 Age-related osteoporosis without current pathological fracture; Z20.822 Contact with and (suspected) exposure to COVID-19; Z79.899 Other long term (current) drug therapy; Z98.890 Other specified postprocedural states; Y90.8 Blood alcohol level of 240 mg/100 ml or more; D69.6 Thrombocytopenia, unspecified
CPT/HCPCS: 36415; 36416; 36430; 36600; 49083; 51702; 70450; 71045; 80048; 80053; 80306; 80307; 81003; 82140; 82248; 82805; 83540; 83550; 83690; 83735; 84100; 84484; 85025; 85046; 85610; 85730; 86850; 86900; 86901; 87086; 93005; 94760; 96372; 96374; 96375; 96376; C9113; G0378; J2001; J2060; J2310; J2405; J3411; J3475; J3480; P9016; U0003; U0005

== ENCOUNTER 2022-08-06 01:53 | Emergency (ER) | payer OTHER ==
[2022-08-06 02:17] LABS: Hemoglobin 8.8 g/dL (12.0-16.0); Mean Corpuscular HGB CONC 30.2 g/dL (32.0-36.0); Mean Corpuscular Hemoglobin 23.6 pg (27.0-31.0); Mean Corpuscular Volume 78.3 fl (78.0-98.0); Mean Platelet Volume 10.6 fL (7.4-10.4); Platelet Count 75 thou/uL (130-400); RBC Distribution Width 18.4 % (11.5-14.5); Red Blood Cell (RBC) Count 3.74 mill/uL (4.20-5.40); White Blood Cell (WBC) Count 3.5 thou/uL (4.8-10.8)
[2022-08-06 02:40] LABS: Band 4 % (5-11); Hypochromia SLIGHT = 6-15 cells (100X) (0-5/hpf); Lymphocytes 16 % (21-51); MDiff Complete? YES; Monocytes 16 % (0-10); Neutrophil 62 % (42-75); Platelet Morphology Comment Appears Decreased; Reactive Lymphocytes 2 % (0-10)
[2022-08-06 03:44] LABS: ALT (SGPT) 16 U/L (8-55); AST (SGOT) 36 U/L (5-34); Albumin 3.5 g/dL (3.5-5.0); Alkaline Phosphatase 138 U/L (40-110); Anion Gap 14 mmol/L (10-20); BUN (Urea Nitrogen) 5 mg/dL (9.8-20.1); Bilirubin, Total 0.6 mg/dL (0.2-1.2); Calc. Creatinine Clearance 0 mL/min (70-130); Carbon Dioxide 21 mmol/L (22-29); Chloride 104 mmol/L (98-107); Estimated GFR 102; Globulin 3.3 g/dL (2.4-3.5); Glucose 95 mg/dL (70-105); Potassium 3.7 mmol/L (3.5-5.1); Protein, Total 6.8 g/dL (6.0-8.3); Sodium 135 mmol/L (136-145)
[2022-08-06] MEDS ORDERED: Ketorolac Tromethamine 30 MG/ML VIAL ONE (04:05)
== END 2022-08-06 06:05 | disposition left against medical advice (07) ==
LOC: ERS 01:53
DX: R10.31 Right lower quadrant pain (principal); K21.9 Gastro-esophageal reflux disease without esophagitis; Z79.899 Other long term (current) drug therapy
CPT/HCPCS: 36415; 80053; 83605; 85025; 96374; J1885

== ENCOUNTER 2022-08-17 05:37 | Emergency (ER) | payer OTHER | END 2022-08-17 06:00 | disposition home or self-care (01) | LOC: ERS 05:37 | DX: R10.84 Generalized abdominal pain (principal); K21.9 Gastro-esophageal reflux disease without esophagitis; Z79.899 Other long term (current) drug therapy | CPT/HCPCS: 99284 ==

== ENCOUNTER 2022-08-20 02:21 | Emergency (ER) | payer OTHER ==
[2022-08-20 03:27] LABS: Bilirubin Negative (Negative); Blood, Urine 1+ (Negative); Clarity Clear (Clear); Glucose, Urine (Dipstick) Normal (Negative); Ketone, Urine 10 mg/dL (Negative); Leukocyte 25 Leu/uL (Negative); Nitrite Negative (Negative); Protein, Urine (Dipstick) Negative (Neg-Trace); RBC/HPF 0-3 HPF (0-3); Squamous Epithelial None Seen HPF (0-3); Urobilinogen Normal mg/dL (Less than 2); WBC/HPF 0-3 HPF (0-3); pH, Urine 5.5 (5.0-9.0)
[2022-08-20] MEDS ORDERED: Pantoprazole 40 MG VIAL ONE (03:28)
[2022-08-20] MEDS ORDERED: Ondansetron PF 4 MG/2 ML Vial ONE (03:28)
[2022-08-20 03:32] LABS: Bacteria/HPF 1+ HPF (None Seen)
[2022-08-20 03:33] LABS: Hemoglobin 10.6 g/dL (12.0-16.0); Mean Corpuscular HGB CONC 32.2 g/dL (32.0-36.0); Mean Corpuscular Hemoglobin 25.9 pg (27.0-31.0); Mean Corpuscular Volume 80.4 fl (78.0-98.0); Red Blood Cell (RBC) Count 4.08 mill/uL (4.20-5.40); White Blood Cell (WBC) Count 3.2 10x3/uL (4.8-10.8)
[2022-08-20 03:36] LABS: INR-International Normal Ratio 1.3; Prothrombin Time 16.5 sec (12.0-14.7)
[2022-08-20 03:44] LABS: ALT (SGPT) 28 U/L (8-55); AST (SGOT) 106 U/L (5-34); Albumin 3.5 g/dL (3.5-5.0); Alkaline Phosphatase 125 U/L (40-110); Anion Gap 19 mmol/L (10-20); BUN (Urea Nitrogen) 5 mg/dL (9.8-20.1); Bilirubin, Total 1.1 mg/dL (0.2-1.2); Calc. Creatinine Clearance 0 mL/min (70-130); Calcium 8.3 mg/dL (7.8-10.44); Carbon Dioxide 19 mmol/L (22-29); Chloride 104 mmol/L (98-107); Estimated GFR 106; Globulin 3.3 g/dL (2.4-3.5); Glucose 87 mg/dL (70-105); Potassium 3.2 mmol/L (3.5-5.1); Protein, Total 6.8 g/dL (6.0-8.3); Sodium 139 mmol/L (136-145)
[2022-08-20 03:46] LABS: Acetaminophen Less than 10.0 mcg/mL (10.0-30.0); Alcohol 211 mg/dL (Less than 10); Salicylate Less than 8.0 mg/dL (15.0-30.0)
[2022-08-20 03:49] LABS: #Lymphocytes 0.3 thou/uL (1.20-3.40); #Monocytes 0.2 thou/uL (0.11-0.59); #Neutrophils 2.7 thou/uL (1.40-6.50); %Eosinophils 0.6 % (0.0-10.0); %Lymphocytes 8.1 % (21.0-51.0); %Monocytes 6.8 % (0.0-10.0); %Neutrophils 84.5 % (42.0-75.0); Anisocytosis SLIGHT = 6-15 cells (100X) (0-5/hpf); MDiff Complete? YES; Mean Platelet Volume 4.7 fL (7.4-10.4); Platelet Count 42 10x3/uL (130-400); Platelet Morphology Comment Appears Decreased; RBC Distribution Width 19.1 % (11.5-14.5); Tear Drops SLIGHT = 2-5 cells (100X) (0-1/hpf)
[2022-08-20 05:18] LABS: Amphetamine Not Detected (NotDetected); Barbiturates Screen Detected (NotDetected); Benzodiazepine Screen Detected (NotDetected); Cocaine Metabolite Screen Not Detected (NotDetected); Methadone Not Detected (NotDetected); Methamphetamine Not Detected (NotDetected); Opiate Screen Not Detected (NotDetected); Oxycodone Screen Not Detected (NotDetected); Phencyclidine (PCP) Not Detected (NotDetected); THC/Cannabinoid Screen Not Detected (NotDetected); Tricyclic Screen Not Detected (NotDetected)
== END 2022-08-20 06:20 | disposition home or self-care (01) ==
LOC: ERS 02:21
DX: F10.129 Alcohol abuse with intoxication, unspecified (principal); R11.2 Nausea with vomiting, unspecified; Y90.7 Blood alcohol level of 200-239 mg/100 ml
CPT/HCPCS: 36415; 80053; 80306; 80307; 81003; 81015; 85025; 85610; 85730; 86850; 86900; 86901; 96374; 96375; C9113; J2405

== ENCOUNTER 2022-08-22 13:36 | Day surgery (SDC) | payer OTHER ==
[2022-08-19 11:23] VITALS: BMI 26.6
[2022-08-22] MEDS ORDERED: Albumin 25% 0 ML ONE (13:50)
[2022-08-22] MEDS ORDERED: Lidocaine 2% PF 5 ML VIAL ONE (13:50)
[2022-08-22] MEDS ORDERED: Sodium Bicarbonate 2.5 MEQ/5 ML VIAL ONE (13:50)
[2022-08-22 14:48] VITALS: BP 124/73; TEMP 98.4
[2022-08-22] MEDS ORDERED: FLU VACC QS2022-23(6MOS UP)/PF 60 MCG/0.5 ML SYRINGE IM ONE (15:00)
== END 2022-08-22 14:35 | disposition home or self-care (01) ==
LOC: ULT 13:36
PROVIDERS: ATTEND Physician Assistant Medical
PROC: 0W9G3ZZ Drainage of Peritoneal Cavity, Percutaneous Approach (ICD-10-PCS; principal; 2022-08-22)
DX: K70.31 Alcoholic cirrhosis of liver with ascites (principal); K70.11 Alcoholic hepatitis with ascites; Z91.011 Allergy to milk products
CPT/HCPCS: 49083; J2001; P9047

== ENCOUNTER 2022-09-12 09:45 | Day surgery (SDC) | payer OTHER ==
[2022-09-08 13:25] VITALS: BMI 28.3
[~2022-09-12 09:45] MED LIST changes: +FLU VACC QS2022-23(6MOS UP)/PF 60 MCG/0.5 ML SYRINGE IM ONE; -Iopamidol-370 76% 500 ML 1 ML ONE
[2022-09-12] MEDS ORDERED: Lidocaine 2% PF 5 ML VIAL ONE (10:16)
[2022-09-12] MEDS ORDERED: Sodium Bicarbonate 2.5 MEQ/5 ML VIAL ONE (10:16)
[2022-09-12 11:57] VITALS: BP 132/67; TEMP 98.1
== END 2022-09-12 11:15 | disposition home or self-care (01) ==
LOC: ULT 09:45
PROVIDERS: ATTEND Physician Assistant Medical
PROC: 0W9G3ZZ Drainage of Peritoneal Cavity, Percutaneous Approach (ICD-10-PCS; principal; 2022-09-12)
DX: K70.31 Alcoholic cirrhosis of liver with ascites (principal); K70.11 Alcoholic hepatitis with ascites; Z79.899 Other long term (current) drug therapy; Z91.011 Allergy to milk products
CPT/HCPCS: 49083; J2001

== ENCOUNTER → 2022-09-26 | Day surgery (SDC) | payer OTHER | END | disposition home or self-care (01) | LOC: ULT 10:51 | PROVIDERS: ATTEND Physician Assistant Medical | DX: K70.31 Alcoholic cirrhosis of liver with ascites (principal); K70.11 Alcoholic hepatitis with ascites; Z53.8 Procedure and treatment not carried out for other reasons; Z91.011 Allergy to milk products | CPT/HCPCS: 76705 ==

== ENCOUNTER 2022-10-04 12:11 | Day surgery (SDC) | payer OTHER ==
[2022-10-04 12:14] LABS: Hemoglobin 11.5 g/dL (12.0-16.0); Mean Corpuscular HGB CONC 30.7 g/dL (32.0-36.0); Mean Corpuscular Hemoglobin 26.2 pg (27.0-31.0); Mean Corpuscular Volume 85.6 fl (78.0-98.0); Mean Platelet Volume 8.6 fL (7.4-10.4); Platelet Count 111 10x3/uL (130-400); Red Blood Cell (RBC) Count 4.39 mill/uL (4.20-5.40); White Blood Cell (WBC) Count 3.3 10x3/uL (4.8-10.8)
[2022-10-04 12:28] LABS: INR-International Normal Ratio 1.1; PTT 27.9 sec (22.9-36.1); Prothrombin Time 14.7 sec (12.0-14.7)
[2022-10-04 12:35] LABS: Anion Gap 13 mmol/L (10-20); BUN (Urea Nitrogen) Less than 4 mg/dL (9.8-20.1); Calc. Creatinine Clearance 0 mL/min (70-130); Calcium 9.4 mg/dL (7.8-10.44); Carbon Dioxide 23 mmol/L (22-29); Chloride 102 mmol/L (98-107); Estimated GFR 105; Glucose 102 mg/dL (70-105); Potassium 3.9 mmol/L (3.5-5.1); Sodium 134 mmol/L (136-145)
[2022-10-04 12:36] LABS: Eosinophils 6 % (0-10); Lymphocytes 30 % (21-51); MDiff Complete? YES; Monocytes 16 % (0-10); Neutrophil 48 % (42-75); Platelet Morphology Comment Appears Decreased; RBC Morphology Normal
[2022-10-04] MEDS ORDERED: Sodium Bicarbonate 2.5 MEQ/5 ML VIAL ONE (12:49)
[2022-10-04] MEDS ORDERED: Lidocaine 1% PF 5 ML VIAL ONE (12:49)
[2022-10-04 13:41] VITALS: BP 120/73; TEMP 97.7
[2022-10-04] MEDS ORDERED: FLU VACC QS2022-23(6MOS UP)/PF 60 MCG/0.5 ML SYRINGE IM ONE (18:00)
== END 2022-10-04 13:30 | disposition home or self-care (01) ==
LOC: ULT 12:11
PROVIDERS: ATTEND Physician Assistant Medical
PROC: 0W9G3ZZ Drainage of Peritoneal Cavity, Percutaneous Approach (ICD-10-PCS; principal; 2022-10-04)
DX: K70.31 Alcoholic cirrhosis of liver with ascites (principal); K70.11 Alcoholic hepatitis with ascites; K76.82 Hepatic encephalopathy; Z79.899 Other long term (current) drug therapy; Z91.011 Allergy to milk products
CPT/HCPCS: 36415; 49083; 80048; 85025; 85610; 85730

== ENCOUNTER → 2022-10-11 | Day surgery (SDC) | payer OTHER ==
[2022-10-06 15:58] VITALS: BMI 28.3
== END | disposition home or self-care (01) ==
LOC: ULT 12:29
PROVIDERS: ATTEND Physician Assistant Medical
DX: K70.31 Alcoholic cirrhosis of liver with ascites (principal); K70.11 Alcoholic hepatitis with ascites; Z91.011 Allergy to milk products
CPT/HCPCS: 76705

== ENCOUNTER 2022-11-21 09:41 | Day surgery (SDC) | payer OTHER ==
[2022-11-21 09:49] LABS: Hemoglobin 10.4 g/dL (12.0-16.0); Mean Corpuscular HGB CONC 32.4 g/dL (32.0-36.0); Mean Corpuscular Hemoglobin 27.6 pg (27.0-31.0); Mean Corpuscular Volume 85.2 fl (78.0-98.0); Mean Platelet Volume 9.4 fL (7.4-10.4); Platelet Count 57 10x3/uL (130-400); RBC Distribution Width 16.6 % (11.5-14.5); Red Blood Cell (RBC) Count 3.77 mill/uL (4.20-5.40); White Blood Cell (WBC) Count 3.2 10x3/uL (4.8-10.8)
[2022-11-21 09:54] LABS: INR-International Normal Ratio 1.2; PTT 31.3 sec (22.9-36.1); Prothrombin Time 15.7 sec (12.0-14.7)
[2022-11-21 10:21] LABS: Eosinophils 2 % (0-10); Lymphocytes 25 % (21-51); MDiff Complete? YES; Monocytes 20 % (0-10); Neutrophil 48 % (42-75); Platelet Morphology Comment Appears Decreased; Polychromasia SLIGHT = 2-3 cells (100X) (0-2/hpf); Reactive Lymphocytes 3 % (0-10)
[2022-11-21] MEDS ORDERED: Lidocaine 1% PF 5 ML VIAL ONE (10:48)
[2022-11-21] MEDS ORDERED: Sodium Bicarbonate 2.5 MEQ/5 ML VIAL ONE (10:48)
[2022-11-21 13:07] VITALS: BP 139/81
== END 2022-11-21 11:40 | disposition home or self-care (01) ==
LOC: ULT 09:41
PROVIDERS: ATTEND Physician Assistant Medical
PROC: 0W9G3ZZ Drainage of Peritoneal Cavity, Percutaneous Approach (ICD-10-PCS; principal; 2022-11-21)
DX: K70.31 Alcoholic cirrhosis of liver with ascites (principal); K70.11 Alcoholic hepatitis with ascites; Z91.011 Allergy to milk products
CPT/HCPCS: 49083; 85025; 85610; 85730

== ENCOUNTER 2022-11-28 09:53 | Day surgery (SDC) | payer OTHER ==
[2022-11-28] MEDS ORDERED: Sodium Bicarbonate 2.5 MEQ/5 ML VIAL ONE (10:29)
[2022-11-28] MEDS ORDERED: Lidocaine 1% PF 5 ML VIAL ONE (10:29)
[2022-11-28 11:16] VITALS: BP 122/77
== END 2022-11-28 11:15 | disposition home or self-care (01) ==
LOC: ULT 09:53
PROVIDERS: ATTEND Physician Assistant Medical
PROC: 0W9G3ZZ Drainage of Peritoneal Cavity, Percutaneous Approach (ICD-10-PCS; principal; 2022-11-28)
DX: K70.31 Alcoholic cirrhosis of liver with ascites (principal); K70.11 Alcoholic hepatitis with ascites; Z91.011 Allergy to milk products
CPT/HCPCS: 49083

== ENCOUNTER 2022-12-08 16:56 | Emergency (ER) | payer OTHER ==
[2022-12-08] MEDS ORDERED: Thiamine HCl 200 MG/2 ML VIAL SLOW IVP SCH (17:45)
[2022-12-08 17:47] LABS: #Lymphocytes 0.4 thou/uL (1.20-3.40); #Monocytes 0.6 thou/uL (0.11-0.59); #Neutrophils 3.2 thou/uL (1.40-6.50); %Basophils 0.1 % (0.0-1.0); %Eosinophils 0.3 % (0.0-10.0); %Lymphocytes 9.1 % (21.0-51.0); %Monocytes 13.8 % (0.0-10.0); %Neutrophils 76.6 % (42.0-75.0); Hemoglobin 11.3 g/dL (12.0-16.0); Mean Corpuscular HGB CONC 33.2 g/dL (32.0-36.0); Mean Corpuscular Hemoglobin 27.4 pg (27.0-31.0); Mean Corpuscular Volume 82.6 fl (78.0-98.0); Mean Platelet Volume 9.6 fL (7.4-10.4); Platelet Count 62 10x3/uL (130-400); RBC Distribution Width 16.6 % (11.5-14.5); Red Blood Cell (RBC) Count 4.13 mill/uL (4.20-5.40); White Blood Cell (WBC) Count 4.2 10x3/uL (4.8-10.8)
[2022-12-08 18:01] LABS: ALT (SGPT) 31 U/L (8-55); AST (SGOT) 107 U/L (5-34); Acetaminophen Less than 10.0 mcg/mL (10.0-30.0); Alcohol 215 mg/dL (Less than 10); Alkaline Phosphatase 155 U/L (40-110); Anion Gap 15 mmol/L (10-20); BUN (Urea Nitrogen) 8 mg/dL (9.8-20.1); Bilirubin, Total 1.8 mg/dL (0.2-1.2); CK (CPK) 163 U/L (29-168); Calc. Creatinine Clearance 0 mL/min (70-130); Calcium 9.5 mg/dL (7.8-10.44); Carbon Dioxide 19 mmol/L (22-29); Chloride 100 mmol/L (98-107); Estimated GFR 101; Glucose 115 mg/dL (70-105); Lipase 50 U/L (8-78); Potassium 3.3 mmol/L (3.5-5.1); Salicylate Less than 8.0 mg/dL (15.0-30.0); Sodium 131 mmol/L (136-145)
[2022-12-08 18:22] LABS: Bilirubin Negative (Negative); Blood, Urine Negative (Negative); Clarity Clear (Clear); Glucose, Urine (Dipstick) Normal (Negative); Ketone, Urine Negative (Negative); Leukocyte Negative Leu/uL (Negative); Nitrite Negative (Negative); Protein, Urine (Dipstick) Negative (Neg-Trace); Specific Gravity, Urine 1.004 (1.002-1.036); Urobilinogen Normal mg/dL (Less than 2); pH, Urine 6.5 (5.0-9.0)
[2022-12-08 18:30] LABS: Amphetamine Not Detected (NotDetected); Barbiturates Screen Not Detected (NotDetected); Benzodiazepine Screen Detected (NotDetected); Cocaine Metabolite Screen Not Detected (NotDetected); Methadone Not Detected (NotDetected); Methamphetamine Not Detected (NotDetected); Opiate Screen Not Detected (NotDetected); Oxycodone Screen Not Detected (NotDetected); Phencyclidine (PCP) Not Detected (NotDetected); THC/Cannabinoid Screen Not Detected (NotDetected); Tricyclic Screen Not Detected (NotDetected)
== END 2022-12-08 19:58 | disposition home or self-care (01) ==
LOC: ERS 16:56
DX: F10.129 Alcohol abuse with intoxication, unspecified (principal); D72.819 Decreased white blood cell count, unspecified; K21.9 Gastro-esophageal reflux disease without esophagitis; Y90.7 Blood alcohol level of 200-239 mg/100 ml
CPT/HCPCS: 71045; 80306; 80307; 81003; 82140; 82550; 83690; 84484; 93005; 96361; 96374; J3411

== ENCOUNTER → 2022-12-19 | Day surgery (SDC) | payer OTHER ==
[~2022-12-19] MED LIST changes: -FLU VACC QS2022-23(6MOS UP)/PF 60 MCG/0.5 ML SYRINGE IM ONE; +Lidocaine 1% PF 5 ML VIAL ONE; +Sodium Bicarbonate 2.5 MEQ/5 ML VIAL ONE
== END | disposition home or self-care (01) ==
LOC: ULT 10:11
PROVIDERS: ATTEND Physician Assistant Medical
DX: K70.31 Alcoholic cirrhosis of liver with ascites (principal); K70.11 Alcoholic hepatitis with ascites; Z53.8 Procedure and treatment not carried out for other reasons
CPT/HCPCS: 76705

== ENCOUNTER 2023-01-23 07:02 | Day surgery (SDC) | payer OTHER ==
[2023-01-19 11:25] VITALS: BMI 27.4
[2023-01-23] MEDS ORDERED: Lidocaine 1% PF 5 ML VIAL ONE (09:25)
[2023-01-23] MEDS ORDERED: PROPOFOL 200 MG/20 ML VIAL ONE (09:25)
== END 2023-01-23 10:00 | disposition home or self-care (01) ==
LOC: SDC 07:02
PROVIDERS: ATTEND Internal Medicine Gastroenterology
PROC: 0DJ08ZZ Inspection of Upper Intestinal Tract, Via Natural or Artificial Opening Endoscopic (ICD-10-PCS; principal; 2023-01-23)
DX: Z09 Encounter for follow-up examination after completed treatment for conditions other than malignant neoplasm (principal); K70.30 Alcoholic cirrhosis of liver without ascites; K76.6 Portal hypertension; F10.10 Alcohol abuse, uncomplicated; K21.9 Gastro-esophageal reflux disease without esophagitis; I10 Essential (primary) hypertension; K76.82 Hepatic encephalopathy; Z87.19 Personal history of other diseases of the digestive system; Z79.899 Other long term (current) drug therapy; Z91.011 Allergy to milk products
CPT/HCPCS: J2704

== ENCOUNTER → 2023-01-30 | Day surgery (SDC) | payer OTHER ==
[2023-01-30 10:16] LABS: INR-International Normal Ratio 1.3; Prothrombin Time 16.2 sec (12.0-14.7)
[2023-01-30 10:17] LABS: PTT 30.4 sec (22.9-36.1)
[2023-01-30 10:29] LABS: Hemoglobin 9.6 g/dL (12.0-16.0); Mean Corpuscular HGB CONC 30.3 g/dL (32.0-36.0); Mean Corpuscular Hemoglobin 26.3 pg (27.0-31.0); Mean Corpuscular Volume 86.9 fl (78.0-98.0); Mean Platelet Volume 9.6 fL (7.4-10.4); Platelet Count 113 10x3/uL (130-400); RBC Distribution Width 18.9 % (11.5-14.5); Red Blood Cell (RBC) Count 3.66 mill/uL (4.20-5.40); White Blood Cell (WBC) Count 3.8 10x3/uL (4.8-10.8)
[2023-01-30 10:51] LABS: Anisocytosis SLIGHT = 6-15 cells (100X) (0-5/hpf); Band 1 % (5-11); Eosinophils 6 % (0-10); Hypochromia SLIGHT = 6-15 cells (100X) (0-5/hpf); Lymphocytes 25 % (21-51); MDiff Complete? YES; Monocytes 22 % (0-10); Neutrophil 44 % (42-75); Platelet Morphology Comment Appears Decreased; Polychromasia SLIGHT = 2-3 cells (100X) (0-2/hpf)
== END | disposition home or self-care (01) ==
LOC: ULT 09:48
PROVIDERS: ATTEND Physician Assistant Medical
DX: K70.31 Alcoholic cirrhosis of liver with ascites (principal); K70.11 Alcoholic hepatitis with ascites; Z53.8 Procedure and treatment not carried out for other reasons; Z91.011 Allergy to milk products
CPT/HCPCS: 36415; 76705; 85025; 85610; 85730

== ENCOUNTER → 2023-02-06 | Day surgery (SDC) | payer OTHER ==
[~2023-02-06] MED LIST changes: +Albumin 25% 0 ML ONE
[2023-02-06 12:18] VITALS: BP 117/71; TEMP 98.5
== END | disposition home or self-care (01) ==
LOC: ULT 10:33
PROVIDERS: ATTEND Physician Assistant Medical
PROC: 0W9G3ZZ Drainage of Peritoneal Cavity, Percutaneous Approach (ICD-10-PCS; principal; 2023-02-06)
DX: K70.31 Alcoholic cirrhosis of liver with ascites (principal); K70.11 Alcoholic hepatitis with ascites; Z91.011 Allergy to milk products
CPT/HCPCS: 49083; P9047

== ENCOUNTER 2023-02-13 08:03 | Outpatient (CLI) | payer OTHER | END 2023-02-13 08:04 | disposition home or self-care (01) | LOC: BICULT 08:03 | PROVIDERS: ATTEND Nurse Practitioner Family | DX: K70.31 Alcoholic cirrhosis of liver with ascites (principal); K76.82 Hepatic encephalopathy; K76.6 Portal hypertension | CPT/HCPCS: 76705 ==

== ENCOUNTER 2023-02-20 10:01 | Day surgery (SDC) | payer OTHER ==
[2023-02-20 12:03] VITALS: BP 120/64
== END 2023-02-20 11:35 | disposition home or self-care (01) ==
LOC: ULT 10:01
PROVIDERS: ATTEND Physician Assistant Medical
PROC: 0W9G3ZZ Drainage of Peritoneal Cavity, Percutaneous Approach (ICD-10-PCS; principal; 2023-02-20)
DX: K70.31 Alcoholic cirrhosis of liver with ascites (principal); K70.11 Alcoholic hepatitis with ascites; Z91.011 Allergy to milk products
CPT/HCPCS: 49083

== ENCOUNTER 2023-04-22 00:18 | Inpatient (IN) | payer OTHER ==
[2023-04-23] MEDS ORDERED: Octreotide Acetate 500 MCG/ML VIAL ONE (00:24)
[2023-04-23] MEDS ORDERED: Pantoprazole 40 MG VIAL ONE (00:24)
[2023-04-23 00:31] LABS: #Eosinphils 0.1 thou/uL (0.0-0.7); #Monocytes 0.6 thou/uL (0.11-0.59); #Neutrophils 2.5 thou/uL (1.40-6.50); %Basophils 0.5 % (0.0-1.0); %Eosinophils 1.2 % (0.0-10.0); %Lymphocytes 23.6 % (21.0-51.0); %Monocytes 15.1 % (0.0-10.0); %Neutrophils 59.4 % (42.0-75.0); Hemoglobin 9.6 g/dL (12.0-16.0); Mean Corpuscular HGB CONC 30.8 g/dL (32.0-36.0); Mean Corpuscular Volume 84.6 fl (78.0-98.0); Mean Platelet Volume 11.1 fL (7.4-10.4); Red Blood Cell (RBC) Count 3.69 mill/uL (4.20-5.40); White Blood Cell (WBC) Count 4.2 10x3/uL (4.8-10.8)
[2023-04-23] MEDS ORDERED: Rocuronium Bromide 10 MG/ML (10ML VIAL) ONE ×2 (00:32→08:42)
[2023-04-23] MEDS ORDERED: Ketamine 50 MG/ML (10ML VIAL) ONE (00:32)
[2023-04-23 00:33] LABS: Platelet Count 50 10x3/uL (130-400)
[2023-04-23 00:42] LABS: INR-International Normal Ratio 1.3
[2023-04-23 00:43] LABS: PTT 29.5 sec (22.9-36.1)
[2023-04-23] MEDS ORDERED: Pantoprazole 80 MG, Admixture Fee 1 EACH in Sodium Chloride 0.9% 100 ML IVPB SCH (00:45)
[2023-04-23 00:55] LABS: ALT (SGPT) 16 U/L (8-55); AST (SGOT) 67 U/L (5-34); Acetaminophen Less than 10 mcg/mL (10.0-30.0); Albumin 3.2 g/dL (3.5-5.0); Alcohol 266.5 mg/dL (Less than 10); Alkaline Phosphatase 80 U/L (40-110); Anion Gap 19 mmol/L (10-20); BUN (Urea Nitrogen) 6 mg/dL (9.8-20.1); Calc. Creatinine Clearance 0 mL/min (70-130); Calcium 8.3 mg/dL (7.8-10.44); Carbon Dioxide 17 mmol/L (22-29); Chloride 107 mmol/L (98-107); Estimated GFR 106; Globulin 3.4 g/dL (2.4-3.5); Glucose 109 mg/dL (70-105); Potassium 4.1 mmol/L (3.5-5.1); Protein, Total 6.6 g/dL (6.0-8.3); Salicylate Less than 8.0 mg/dL (15.0-30.0); Sodium 139 mmol/L (136-145)
[2023-04-23 00:57] LABS: Anisocytosis SLIGHT = 6-15 cells HPF (0-5); CellaVision Operator ID lab.abc; Platelet Adequacy Comment Platelets Decreased; Polychromasia SLIGHT = 2-3 cells HPF (0-2); RBC Morphology Within Normal Limits
[2023-04-23 01:37] LABS: CK (CPK) 374 U/L (29-168); Lipase 32 U/L (8-78)
[2023-04-23 01:39] LABS: Analyzer IN Cardio ER; Base Excess (BEa) -6.1 mEq/L (-2.0 to +3.0); CO2 Tension 30.6 mmHg (35.0-45.0); Calcium, Ionized (arterial) 1.08 mmol/L (1.12-1.30); Carboxyhemoglobin (COHb) 0.3 gm% (0.0-3.0); Hematocrit-ABG 31 % (36.0-47.0); Hemoglobin (Hb) 10.5 g/dL (12.0-16.0); O2 Tension (PaO2), arterial 406.1 mmHg (80.0-100.0); Potassium - ABG Lab 3.31 mmol/L (3.70-5.30); pH, Arterial 7.387 (7.35-7.45)
[2023-04-23 01:40] LABS: Puncture Site LRA
[2023-04-23] MEDS ORDERED: Octreotide Acetate 1,250 MCG in Sodium Chloride 0.9% 250 ML 250 ML IVPB SCH (02:30)
[2023-04-23] MEDS ORDERED: NOREPINEPHRINE 8 MG/250 ML-D5W 250 ML IVPB PRN (02:30)
[2023-04-23] MEDS ORDERED: Pantoprazole 80 MG in Sodium Chloride 0.9% 100 ML IVP SCH (02:30)
[2023-04-23] MEDS ORDERED: Electrolyte Replacement Protocol 1 EACH IVPB SCH (02:30)
[2023-04-23] MEDS ORDERED: Ventilator Sedation Protocol 1 EACH FS SCH (02:30)
[2023-04-23 02:34] LABS: INR-International Normal Ratio 1.3; Prothrombin Time 16.5 sec (12.0-14.7)
[2023-04-23 02:35] LABS: PTT 30.8 sec (22.9-36.1)
[2023-04-23] MEDS ORDERED: Propofol 1,000 MG/100 ML VIAL IV ONE (02:50)
[2023-04-23] MEDS ORDERED: Morphine 2 MG/ML VIAL SLOW IVP PRN (03:00)
[2023-04-23] MEDS ORDERED: Propofol BOLUS 1,000 MG/100 ML VIAL IV PRN (03:00)
[2023-04-23] MEDS ORDERED: Fentanyl BOLUS 250 ML IVPB PRN (03:00)
[2023-04-23] MEDS ORDERED: DISCONTINUE PREVIOUS NARCOTIC PAIN MEDICATIONS AND BENZODIAZEPINES FS SCH (03:00)
[2023-04-23 03:14] LABS: Amphetamine Not Detected (NotDetected); Barbiturates Screen Not Detected (NotDetected); Benzodiazepine Screen Not Detected (NotDetected); Cocaine Metabolite Screen Not Detected (NotDetected); Methadone Not Detected (NotDetected); Methamphetamine Not Detected (NotDetected); Opiate Screen Not Detected (NotDetected); Oxycodone Screen Not Detected (NotDetected); Phencyclidine (PCP) Not Detected (NotDetected); THC/Cannabinoid Screen Not Detected (NotDetected); Tricyclic Screen Not Detected (NotDetected)
[2023-04-23 03:20] LABS: Bacteria/HPF None Seen HPF (None Seen); Bilirubin Negative (Negative); Blood, Urine Negative (Negative); CAUTI Indications for Culture Pelvic or flank pain; Clarity Clear (Clear); Glucose, Urine (Dipstick) Normal (Negative); Ketone, Urine Negative (Negative); Leukocyte Negative Leu/uL (Negative); Nitrite Negative (Negative); Protein, Urine (Dipstick) Negative (Neg-Trace); RBC/HPF 0-3 HPF (0-3); Specific Gravity, Urine 1.009 (1.002-1.036); Squamous Epithelial None Seen HPF (0-3); Urobilinogen Normal mg/dL (Less than 2); WBC/HPF 0-3 HPF (0-3)
[2023-04-23] MEDS ORDERED: fentaNYL 50 mcg/mL 1 mL Vial ONE (03:22)
[2023-04-23 03:24] LABS: Urine Culture Reflex No No
[2023-04-23] MEDS ORDERED: Ondansetron ODT 4 MG TAB PO PRN (03:45)
[2023-04-23] MEDS ORDERED: Lorazepam 1 MG TAB PO SCH (03:45)
[2023-04-23] MEDS ORDERED: Lorazepam 1 MG TAB PO PRN (03:45)
[2023-04-23] MEDS ORDERED: Dextrose 5%-Lactated Ringers 1,000 ML IV SCH (04:00)
[2023-04-23 04:17] LABS: #Monocytes 0.5 thou/uL (0.11-0.59); #Neutrophils 2.3 thou/uL (1.40-6.50); %Basophils 0.6 % (0.0-1.0); %Eosinophils 0.3 % (0.0-10.0); %Monocytes 13.7 % (0.0-10.0); %Neutrophils 65.8 % (42.0-75.0); Hemoglobin 10.9 g/dL (12.0-16.0); Mean Corpuscular HGB CONC 32.1 g/dL (32.0-36.0); Mean Corpuscular Hemoglobin 27.1 pg (27.0-31.0); Mean Corpuscular Volume 84.6 fl (78.0-98.0); Mean Platelet Volume 10.2 fL (7.4-10.4); RBC Distribution Width 16.8 % (11.5-14.5); Red Blood Cell (RBC) Count 4.02 mill/uL (4.20-5.40); White Blood Cell (WBC) Count 3.4 10x3/uL (4.8-10.8)
[2023-04-23 04:20] LABS: Phosphorus 3.1 mg/dL (2.3-4.7)
[2023-04-23 04:31] LABS: Platelet Count 36 10x3/uL (130-400)
[2023-04-23 04:33] LABS: Lactic Acid 3.3 mmol/L (0.5-2.2)
[2023-04-23] MEDS: Thiamine HCl 200 MG/2 ML VIAL SLOW IVP SCH (04:33)
[2023-04-23] MEDS: Lorazepam 2 MG/ML VIAL SLOW IVP PRN ×3 (04:38→17:39)
[2023-04-23 04:46] LABS: ALT (SGPT) 18 U/L (8-55); AST (SGOT) 56 U/L (5-34); Albumin 3.6 g/dL (3.5-5.0); Alkaline Phosphatase 82 U/L (40-110); Anion Gap 23 mmol/L (10-20); BUN (Urea Nitrogen) 5 mg/dL (9.8-20.1); Bilirubin, Total 1.1 mg/dL (0.2-1.2); Calc. Creatinine Clearance 0 mL/min (70-130); Calcium 8.3 mg/dL (7.8-10.44); Carbon Dioxide 16 mmol/L (22-29); Chloride 106 mmol/L (98-107); Estimated GFR 108; Globulin 3.3 g/dL (2.4-3.5); Glucose 73 mg/dL (70-105); Magnesium 1.7 mg/dL (1.6-2.6); Potassium 3.5 mmol/L (3.5-5.1); Protein, Total 6.9 g/dL (6.0-8.3); Sodium 141 mmol/L (136-145)
[2023-04-23] MEDS ORDERED: Lorazepam 2 MG/ML VIAL SLOW IVP PRN (07:24)
[2023-04-23] MEDS ORDERED: Midazolam HCl 2 mg/2 ml Vial ONE (08:08)
[2023-04-23] MEDS: cefTRIAXone\\ROCEPHIN 1 GM in Sodium Chloride 0.9% 100 ML IVPB SCH (08:14)
[2023-04-23] MEDS: Lorazepam 2 MG/ML VIAL SLOW IVP SCH ×3 (08:14→20:11)
[2023-04-23] MEDS: Potassium Chloride 20 MEQ in Premix Bag 1 BAG IVPB SCH ×3 (08:14→11:53)
[2023-04-23] MEDS: Magnesium 2 GM/50 ML(in water) 2 GM in Premix Bag 1 BAG IVPB SCH ×2 (08:14→09:35)
[2023-04-23] MEDS ORDERED: PHENYLEPHRINE-NS 100 MCG/ML 10 ML SYRINGE ONE (08:42)
[2023-04-23] MEDS: Propofol 1,000 MG/100 ML VIAL IV PRN ×3 (09:35→22:20)
[2023-04-23] MEDS: Folic Acid 1 MG TAB PO SCH (09:36)
[2023-04-23] MEDS: Fentanyl CADD 100 ML IV SCH ×2 (11:07→21:35)
[2023-04-23 12:05] LABS: Hemoglobin 10.6 g/dL (12.0-16.0)
[2023-04-23 19:54] LABS: Potassium 3.6 mmol/L (3.5-5.1)
[2023-04-23] MEDS: Pantoprazole 40 MG VIAL IVP SCH (20:10)
[2023-04-23] MEDS ORDERED: Fentanyl CADD 100 ML ONE (21:30)
[2023-04-23] MEDS ORDERED: Lactated Ringer's 500 ML IV SCH (22:45)
[2023-04-23] MEDS: Lactated Ringer's 1,000 ML IV SCH (22:54)
[2023-04-24 00:30] LABS: Hemoglobin 9.7 g/dL (12.0-16.0)
[2023-04-24] MEDS: Lorazepam 2 MG/ML VIAL SLOW IVP SCH ×4 (01:37→20:10)
[2023-04-24] MEDS: Octreotide Acetate 1,250 MCG in Sodium Chloride 0.9% 250 ML 250 ML IVPB SCH (01:37)
[2023-04-24] MEDS: Thiamine HCl 200 MG/2 ML VIAL SLOW IVP SCH (03:16)
[2023-04-24] MEDS: Lactated Ringer's 1,000 ML IV SCH ×3 (03:16→22:18)
[2023-04-24] MEDS ORDERED: Lorazepam 1 MG TAB PO PRN (03:45)
[2023-04-24] MEDS: Propofol 1,000 MG/100 ML VIAL IV PRN ×2 (04:07→11:50)
[2023-04-24 04:33] LABS: Hemoglobin 9.8 g/dL (12.0-16.0); Mean Corpuscular HGB CONC 31.4 g/dL (32.0-36.0); Mean Corpuscular Hemoglobin 26.8 pg (27.0-31.0); Mean Corpuscular Volume 85.2 fl (78.0-98.0); Mean Platelet Volume 10.5 fL (7.4-10.4); RBC Distribution Width 17.1 % (11.5-14.5); Red Blood Cell (RBC) Count 3.66 mill/uL (4.20-5.40); White Blood Cell (WBC) Count 5.3 10x3/uL (4.8-10.8)
[2023-04-24 04:56] LABS: ALT (SGPT) 16 U/L (8-55); AST (SGOT) 48 U/L (5-34); Albumin 3.1 g/dL (3.5-5.0); Alkaline Phosphatase 63 U/L (40-110); Anion Gap 14 mmol/L (10-20); BUN (Urea Nitrogen) 10 mg/dL (9.8-20.1); Bilirubin, Total 1.2 mg/dL (0.2-1.2); Calc. Creatinine Clearance 107 mL/min (70-130); Calcium 7.7 mg/dL (7.8-10.44); Carbon Dioxide 21 mmol/L (22-29); Chloride 107 mmol/L (98-107); Estimated GFR 97; Globulin 2.9 g/dL (2.4-3.5); Glucose 95 mg/dL (70-105); Potassium 3.5 mmol/L (3.5-5.1); Sodium 138 mmol/L (136-145)
[2023-04-24 05:44] LABS: Delete Auto Diff?? YES; Manual Diff?? YES; Platelet Count 28 10x3/uL (130-400)
[2023-04-24 06:37] LABS: Band 4 % (5-11); CellaVision Operator ID LAB.GE; Eosinophils 1 % (0-10); Lymphocytes 2 % (21-51); Metamyelocyte 1 % (0-0); Monocytes 2 % (0-10); Neutrophil 89 % (42-75); Platelet Adequacy Comment Significant decrease; Polychromasia SLIGHT = 2-3 cells HPF (0-2); Reactive Lymphocytes 1 % (0-10); Total Cell Count 101
[2023-04-24] MEDS ORDERED: Potassium Chloride 20 MEQ in Premix Bag 1 BAG IVPB SCH (08:00)
[2023-04-24] MEDS: cefTRIAXone\\ROCEPHIN 1 GM in Sodium Chloride 0.9% 100 ML IVPB SCH (08:03)
[2023-04-24] MEDS: Pantoprazole 40 MG VIAL IVP SCH ×2 (08:03→20:10)
[2023-04-24] MEDS: Folic Acid 1 MG TAB PO SCH (08:06)
[2023-04-24] MEDS: Fentanyl CADD 100 ML IV SCH ×2 (08:14→18:43)
[2023-04-24] MEDS ORDERED: Potassium Chloride 40 MEQ in Premix Bag 1 BAG IVPB SCH (08:15)
[2023-04-24] MEDS ORDERED: Sodium Bicarbonate 2.5 MEQ/5 ML VIAL ONE (11:25)
[2023-04-24] MEDS ORDERED: Lidocaine 1% PF 5 ML VIAL ONE (11:25)
[2023-04-24] MEDS: Albumin 25% 25 GM/100 ML BOT IVPB SCH ×2 (11:50→17:55)
[2023-04-24] MEDS: Acetaminophen 650 MG Suppository PR PRN (13:04)
[2023-04-24 14:49] LABS: RBC Count-Automated (BF) 687 /cu.mm; WBC/Nucleated-Auto (BF) 100 /cu.mm
[2023-04-24 14:55] LABS: Body Fluid Source Ascites Body Fluid; Tube # EDTA
[2023-04-24 14:56] LABS: BF Color Yellow; Clarity Hazy (Clear)
[2023-04-24] MEDS: Cefepime 2 GM in Sodium Chloride 0.9% 100 ML IVPB SCH ×2 (15:05→22:18)
[2023-04-24 15:26] LABS: BF Segmented Neutrophils 12 %; Cell Count Non Hematic 80 %; Eosinophils 2 %; Lymphocytes 5 %
[2023-04-24] MEDS ORDERED: Fentanyl CADD 100 ML ONE (18:39)
[2023-04-25] MEDS: Lorazepam 2 MG/ML VIAL SLOW IVP PRN ×3 (00:04→21:49)
[2023-04-25] MEDS: Albumin 25% 25 GM/100 ML BOT IVPB SCH ×4 (00:04→18:14)
[2023-04-25] MEDS: Propofol 1,000 MG/100 ML VIAL IV PRN (00:11)
[2023-04-25] MEDS: Octreotide Acetate 1,250 MCG in Sodium Chloride 0.9% 250 ML 250 ML IVPB SCH (01:33)
[2023-04-25] MEDS: Lorazepam 2 MG/ML VIAL SLOW IVP SCH ×4 (02:41→19:50)
[2023-04-25] MEDS ORDERED: Lorazepam 1 MG TAB PO PRN (03:45)
[2023-04-25] MEDS ORDERED: Lorazepam 0.5 MG TAB PO SCH (03:45)
[2023-04-25] MEDS: Thiamine HCl 200 MG/2 ML VIAL SLOW IVP SCH (04:15)
[2023-04-25 04:37] LABS: Hemoglobin 9.5 g/dL (12.0-16.0); Mean Corpuscular HGB CONC 31.5 g/dL (32.0-36.0); Mean Corpuscular Hemoglobin 27.4 pg (27.0-31.0); Mean Platelet Volume 10.7 fL (7.4-10.4); RBC Distribution Width 17.3 % (11.5-14.5); Red Blood Cell (RBC) Count 3.47 mill/uL (4.20-5.40); White Blood Cell (WBC) Count 4.5 10x3/uL (4.8-10.8)
[2023-04-25 04:45] LABS: Delete Auto Diff?? YES; Manual Diff?? YES; Platelet Count 28 10x3/uL (130-400)
[2023-04-25 05:01] LABS: ALT (SGPT) 13 U/L (8-55); AST (SGOT) 38 U/L (5-34); Albumin 3.5 g/dL (3.5-5.0); Alkaline Phosphatase 57 U/L (40-110); Anion Gap 15 mmol/L (10-20); BUN (Urea Nitrogen) 11 mg/dL (9.8-20.1); Bilirubin, Total 1.4 mg/dL (0.2-1.2); Calc. Creatinine Clearance 116 mL/min (70-130); Calcium 7.8 mg/dL (7.8-10.44); Carbon Dioxide 20 mmol/L (22-29); Chloride 108 mmol/L (98-107); Estimated GFR 101; Globulin 2.4 g/dL (2.4-3.5); Glucose 77 mg/dL (70-105); Potassium 3.7 mmol/L (3.5-5.1); Protein, Total 5.9 g/dL (6.0-8.3); Sodium 139 mmol/L (136-145)
[2023-04-25] MEDS: Fentanyl CADD 100 ML IV SCH (05:23)
[2023-04-25 05:45] LABS: Band 20 % (5-11); CellaVision Operator ID LAB.GE; Eosinophils 1 % (0-10); Lymphocytes 1 % (21-51); Monocytes 3 % (0-10); Neutrophil 74 % (42-75); Platelet Adequacy Comment Significant decrease; Polychromasia SLIGHT = 2-3 cells HPF (0-2); Reactive Lymphocytes 1 % (0-10); Smudge Cells 2.9 %; Total Cell Count 102
[2023-04-25] MEDS: Cefepime 2 GM in Sodium Chloride 0.9% 100 ML IVPB SCH ×2 (06:24→18:16)
[2023-04-25] MEDS: Lactated Ringer's 1,000 ML IV SCH (07:09)
[2023-04-25 07:30] LABS: Actual Bicarbonate (HCO3a) 20.1 mEq/L (22-28); Base Excess (BEa) -3.7 mEq/L (-2.0 to +3.0); CO2 Tension 31.7 mmHg (35.0-45.0); Calcium, Ionized (arterial) 1.02 mmol/L (1.12-1.30); Carboxyhemoglobin (COHb) 0.3 gm% (0.0-3.0); Hematocrit-ABG 30 % (36.0-47.0); Hemoglobin (Hb) 10.2 g/dL (12.0-16.0); O2 Tension (PaO2), arterial 61.3 mmHg (80.0-100.0); Potassium - ABG Lab 3.81 mmol/L (3.70-5.30); pH, Arterial 7.419 (7.35-7.45)
[2023-04-25 07:34] LABS: Puncture Site RRA
[2023-04-25 07:36] LABS: ALV-art Gradient 255.575 mmHg (0-20)
[2023-04-25] MEDS: Acetaminophen 650 MG Suppository PR PRN (08:03)
[2023-04-25] MEDS: Pantoprazole 40 MG VIAL IVP SCH ×2 (08:12→21:13)
[2023-04-25] MEDS: Folic Acid 1 MG TAB PO SCH (09:21)
[2023-04-25] MEDS ORDERED: NOREPINEPHRINE 8 MG/250 ML-D5W 250 ML IVPB SCH (15:15)
[2023-04-25 19:59] LABS: Hemoglobin 9.5 g/dL (12.0-16.0)
[2023-04-26] MEDS: Albumin 25% 25 GM/100 ML BOT IVPB SCH ×2 (00:09→05:05)
[2023-04-26] MEDS: Lorazepam 2 MG/ML VIAL SLOW IVP SCH ×4 (01:36→19:54)
[2023-04-26] MEDS: Lactated Ringer's 1,000 ML IV SCH ×3 (02:20→07:28)
[2023-04-26] MEDS ORDERED: Lorazepam 0.5 MG TAB PO PRN (03:45)
[2023-04-26] MEDS: Octreotide Acetate 1,250 MCG in Sodium Chloride 0.9% 250 ML 250 ML IVPB SCH (03:52)
[2023-04-26 04:14] LABS: Hemoglobin 9.7 g/dL (12.0-16.0); Mean Corpuscular HGB CONC 30.5 g/dL (32.0-36.0); Mean Corpuscular Hemoglobin 27.2 pg (27.0-31.0); Mean Corpuscular Volume 89.1 fl (78.0-98.0); Mean Platelet Volume 11.9 fL (7.4-10.4); RBC Distribution Width 17.6 % (11.5-14.5); Red Blood Cell (RBC) Count 3.57 mill/uL (4.20-5.40); White Blood Cell (WBC) Count 4.7 10x3/uL (4.8-10.8)
[2023-04-26 04:38] LABS: ALT (SGPT) 12 U/L (8-55); AST (SGOT) 45 U/L (5-34); Albumin 3.7 g/dL (3.5-5.0); Alkaline Phosphatase 49 U/L (40-110); Anion Gap 14 mmol/L (10-20); BUN (Urea Nitrogen) 9 mg/dL (9.8-20.1); Bilirubin, Total 1.8 mg/dL (0.2-1.2); Calc. Creatinine Clearance 145 mL/min (70-130); Calcium 8.1 mg/dL (7.8-10.44); Carbon Dioxide 20 mmol/L (22-29); Chloride 109 mmol/L (98-107); Estimated GFR 106; Globulin 2.4 g/dL (2.4-3.5); Glucose 91 mg/dL (70-105); Protein, Total 6.1 g/dL (6.0-8.3); Sodium 139 mmol/L (136-145)
[2023-04-26 04:53] LABS: Delete Auto Diff?? YES; Manual Diff?? YES; Platelet Count 32 10x3/uL (130-400)
[2023-04-26] MEDS: Cefepime 2 GM in Sodium Chloride 0.9% 100 ML IVPB SCH ×2 (05:05→18:43)
[2023-04-26 05:58] LABS: Anisocytosis SLIGHT = 6-15 cells HPF (0-5); Band 16 % (5-11); Burr Cells SLIGHT = 2-5 cells HPF (0-1); CellaVision Operator ID LAB.JMM; Eosinophils 1 % (0-10); Lymphocytes 12 % (21-51); Macrocytosis SLIGHT = 6-15 cells HPF (0-5); Monocytes 5 % (0-10); Neutrophil 67 % (42-75); Platelet Adequacy Comment Platelets Decreased; Polychromasia SLIGHT = 2-3 cells HPF (0-2); Total Cell Count 102
[2023-04-26] MEDS: Folic Acid 1 MG TAB PO SCH (07:27)
[2023-04-26] MEDS: Pantoprazole 40 MG VIAL IVP SCH ×2 (07:27→20:00)
[2023-04-26] MEDS: Thiamine 100 MG TAB PO SCH (07:28)
[2023-04-26] MEDS ORDERED: Furosemide 40 MG/4 ML VIAL IVP SCH (12:01)
[2023-04-27] MEDS: Lactated Ringer's 1,000 ML IV SCH ×3 (00:30→18:17)
[2023-04-27] MEDS: Lorazepam 2 MG/ML VIAL SLOW IVP SCH ×4 (02:10→19:57)
[2023-04-27] MEDS: Cefepime 2 GM in Sodium Chloride 0.9% 100 ML IVPB SCH ×2 (05:50→17:45)
[2023-04-27 07:14] LABS: Actual Bicarbonate (HCO3a) 17.7 mEq/L (22-28); Calcium, Ionized (arterial) 1.05 mmol/L (1.12-1.30); Carboxyhemoglobin (COHb) 0.5 gm% (0.0-3.0); Hematocrit-ABG 30 % (36.0-47.0); Hemoglobin (Hb) 10.2 g/dL (12.0-16.0); O2 Tension (PaO2), arterial 70.8 mmHg (80.0-100.0); Potassium - ABG Lab 3.57 mmol/L (3.70-5.30); pH, Arterial 7.404 (7.35-7.45)
[2023-04-27 07:15] LABS: Puncture Site LRA
[2023-04-27] MEDS: Pantoprazole 40 MG VIAL IVP SCH ×2 (07:50→20:02)
[2023-04-27] MEDS: Thiamine 100 MG TAB PO SCH (12:47)
[2023-04-27] MEDS: Folic Acid 1 MG TAB PO SCH (12:47)
[2023-04-27 15:47] VITALS: BMI 30.2
[2023-04-28] MEDS: Lorazepam 2 MG/ML VIAL SLOW IVP SCH ×5 (02:01→21:17)
[2023-04-28] MEDS: Cefepime 2 GM in Sodium Chloride 0.9% 100 ML IVPB SCH ×2 (05:14→16:36)
[2023-04-28] MEDS: Pantoprazole 40 MG VIAL IVP SCH ×2 (08:59→21:18)
[2023-04-28] MEDS: Folic Acid 1 MG TAB PO SCH (08:59)
[2023-04-28] MEDS: Thiamine 100 MG TAB PO SCH (08:59)
[2023-04-28 10:29] LABS: Hemoglobin 9.8 g/dL (12.0-16.0); Manual Diff?? YES; Mean Corpuscular HGB CONC 32.5 g/dL (32.0-36.0); Mean Corpuscular Hemoglobin 27.4 pg (27.0-31.0); Mean Corpuscular Volume 84.4 fl (78.0-98.0); Mean Platelet Volume 10.1 fL (7.4-10.4); RBC Distribution Width 17.9 % (11.5-14.5); Red Blood Cell (RBC) Count 3.58 mill/uL (4.20-5.40)
[2023-04-28 10:59] LABS: Delete Auto Diff?? YES; Platelet Count 48 10x3/uL (130-400)
[2023-04-28 11:56] LABS: Band 11 % (5-11); CellaVision Operator ID LAB.GE; Eosinophils 1 % (0-10); Lymphocytes 16 % (21-51); Monocytes 11 % (0-10); Neutrophil 60 % (42-75); Platelet Adequacy Comment Platelets Decreased; Polychromasia SLIGHT = 2-3 cells HPF (0-2); Total Cell Count 101
[2023-04-28] MEDS: Spironolactone 100 MG TAB PO SCH (16:36)
[2023-04-28] MEDS: Rifaximin 200 MG TAB PO SCH (21:17)
[2023-04-28] MEDS: Furosemide 20 MG TAB PO SCH (21:17)
[2023-04-29] MEDS: Lorazepam 2 MG/ML VIAL SLOW IVP SCH ×2 (01:37→08:58)
[2023-04-29] MEDS ORDERED: Methyl Salicylate/Menthol 85 GM TUBE TOP PRN (01:38)
[2023-04-29] MEDS ORDERED: Lidocaine 4% Patch TD SCH (01:45)
[2023-04-29] MEDS ORDERED: HYDROcodone/Acetaminophen 5/325 mg Tablet PO SCH (03:15)
[2023-04-29] MEDS: Benzonatate 100 MG CAP PO PRN ×2 (04:13→08:57)
[2023-04-29] MEDS: Cefepime 2 GM in Sodium Chloride 0.9% 100 ML IVPB SCH ×2 (06:25→16:46)
[2023-04-29] MEDS: Thiamine 100 MG TAB PO SCH (08:56)
[2023-04-29] MEDS: Rifaximin 200 MG TAB PO SCH ×2 (08:56→21:10)
[2023-04-29] MEDS: GUAIFENESIN SF SOLN 200 MG/10 ML UDCUP PO PRN (08:57)
[2023-04-29] MEDS: Folic Acid 1 MG TAB PO SCH (08:57)
[2023-04-29] MEDS: Spironolactone 100 MG TAB PO SCH ×2 (08:57→16:46)
[2023-04-29] MEDS: Furosemide 20 MG TAB PO SCH ×2 (08:57→21:11)
[2023-04-29] MEDS: Pantoprazole 40 MG VIAL IVP SCH ×2 (08:58→21:11)
[2023-04-29] MEDS ORDERED: Transdermal Patch Removal TOP SCH (13:45)
[2023-04-30] MEDS: Cefepime 2 GM in Sodium Chloride 0.9% 100 ML IVPB SCH ×2 (06:02→16:56)
[2023-04-30 08:42] LABS: Anion Gap 14 mmol/L (10-20); BUN (Urea Nitrogen) 5 mg/dL (9.8-20.1); Calc. Creatinine Clearance 115 mL/min (70-130); Calcium 10.3 mg/dL (7.8-10.44); Carbon Dioxide 30 mmol/L (22-29); Chloride 96 mmol/L (98-107); Estimated GFR 102; Glucose 110 mg/dL (70-105); Sodium 138 mmol/L (136-145)
[2023-04-30 08:50] LABS: Potassium 2.3 mmol/L (3.5-5.1)
[2023-04-30] MEDS: Spironolactone 100 MG TAB PO SCH ×2 (09:02→16:56)
[2023-04-30] MEDS: Thiamine 100 MG TAB PO SCH (09:03)
[2023-04-30] MEDS: Folic Acid 1 MG TAB PO SCH (09:03)
[2023-04-30] MEDS: Benzonatate 100 MG CAP PO PRN (09:03)
[2023-04-30] MEDS: Pantoprazole 40 MG VIAL IVP SCH (09:04)
[2023-04-30] MEDS: Rifaximin 200 MG TAB PO SCH ×2 (09:04→21:27)
[2023-04-30] MEDS: GUAIFENESIN SF SOLN 200 MG/10 ML UDCUP PO PRN ×2 (09:04→21:27)
[2023-04-30] MEDS: Potassium Chloride 20 MEQ in Premix Bag 1 BAG IVPB SCH ×4 (09:23→14:44)
[2023-04-30] MEDS: Furosemide 20 MG TAB PO SCH ×2 (09:24→21:25)
[2023-04-30] MEDS ORDERED: Temazepam 15 MG CAP PO PRN (12:51)
[2023-04-30] MEDS ORDERED: Acetaminophen 325 MG TAB PO PRN (14:30)
[2023-04-30 17:55] LABS: Potassium 2.6 mmol/L (3.5-5.1)
[2023-04-30] MEDS ORDERED: Potassium Chloride 20 MEQ TAB PO SCH (18:15)
[2023-04-30] MEDS ORDERED: Electrolyte Replacement Protocol FS PRN ×2 (18:15)
[2023-04-30] MEDS: Potassium Bicarbonate/Cit Ac 20 MEQ TAB PO SCH ×2 (18:20→22:21)
[2023-04-30] MEDS ORDERED: Magnesium Sulfate In Water 4 GM in Premix Bag 1 BAG IVPB SCH (21:15)
[2023-05-01] MEDS: Cefepime 2 GM in Sodium Chloride 0.9% 100 ML IVPB SCH (05:10)
[2023-05-01 06:42] LABS: #Eosinphils 0.1 thou/uL (0.0-0.7); #Monocytes 1.3 thou/uL (0.11-0.59); #Neutrophils 2.4 thou/uL (1.40-6.50); %Basophils 0.7 % (0.0-1.0); %Eosinophils 1.8 % (0.0-10.0); %Lymphocytes 14.8 % (21.0-51.0); %Monocytes 29.4 % (0.0-10.0); %Neutrophils 51.8 % (42.0-75.0); Manual Diff?? YES; Mean Corpuscular HGB CONC 31.8 g/dL (32.0-36.0); Mean Corpuscular Hemoglobin 27.4 pg (27.0-31.0); Mean Corpuscular Volume 86.1 fl (78.0-98.0); Mean Platelet Volume 11.1 fL (7.4-10.4); RBC Distribution Width 18.6 % (11.5-14.5); Red Blood Cell (RBC) Count 4.02 mill/uL (4.20-5.40); White Blood Cell (WBC) Count 4.5 10x3/uL (4.8-10.8)
[2023-05-01 06:44] LABS: Platelet Count 87 10x3/uL (130-400)
[2023-05-01 07:03] LABS: ALT (SGPT) 13 U/L (8-55); AST (SGOT) 34 U/L (5-34); Albumin 3.8 g/dL (3.5-5.0); Alkaline Phosphatase 61 U/L (40-110); Anion Gap 15 mmol/L (10-20); BUN (Urea Nitrogen) 7 mg/dL (9.8-20.1); Bilirubin, Total 2.1 mg/dL (0.2-1.2); Calc. Creatinine Clearance 122 mL/min (70-130); Calcium 10.2 mg/dL (7.8-10.44); Carbon Dioxide 27 mmol/L (22-29); Chloride 99 mmol/L (98-107); Estimated GFR 104; Glucose 96 mg/dL (70-105); Magnesium 1.8 mg/dL (1.6-2.6); Potassium 3.1 mmol/L (3.5-5.1); Protein, Total 6.8 g/dL (6.0-8.3); Sodium 138 mmol/L (136-145)
[2023-05-01] MEDS ORDERED: Magnesium 2 GM/50 ML(in water) 2 GM in Premix Bag 1 BAG IVPB SCH (08:00)
[2023-05-01] MEDS ORDERED: Potassium Bicarbonate/Cit Ac 20 MEQ TAB PO SCH (08:00)
[2023-05-01] MEDS: Folic Acid 1 MG TAB PO SCH (08:30)
[2023-05-01] MEDS: Spironolactone 100 MG TAB PO SCH (08:30)
[2023-05-01] MEDS: Furosemide 20 MG TAB PO SCH (08:30)
[2023-05-01] MEDS: Rifaximin 200 MG TAB PO SCH (08:31)
[2023-05-01] MEDS: Thiamine 100 MG TAB PO SCH (08:31)
[2023-05-01 08:50] LABS: Band 12 % (5-11); Burr Cells SLIGHT = 2-5 cells HPF (0-1); CellaVision Operator ID LAB.GE; Eosinophils 1 % (0-10); Lymphocytes 14 % (21-51); Metamyelocyte 1 % (0-0); Monocytes 11 % (0-10); Neutrophil 60 % (42-75); Platelet Adequacy Comment Platelets Decreased; Polychromasia SLIGHT = 2-3 cells HPF (0-2); Reactive Lymphocytes 2 % (0-10); Total Cell Count 103
[2023-05-01 13:21] VITALS: BP 128/75; TEMP 98.4
== END 2023-05-01 15:23 | disposition home or self-care (01) | DRG 432 ==
LOC: ERS 00:18 → CCU 04-23 02:28 → T4-B 04-27 16:46
PROVIDERS: ADMIT Student in an Organized Health Care Education/Training Program; ATTEND Internal Medicine
PROC: 06L38CZ Occlusion of Esophageal Vein with Extraluminal Device, Via Natural or Artificial Opening Endoscopic (ICD-10-PCS; principal; 2023-04-23)
PROC: 0BH17EZ Insertion of Endotracheal Airway into Trachea, Via Natural or Artificial Opening (ICD-10-PCS; 2023-04-23)
PROC: 0DH673Z Insertion of Infusion Device into Stomach, Via Natural or Artificial Opening (ICD-10-PCS; 2023-04-23)
PROC: 30233N1 Transfusion of Nonautologous Red Blood Cells into Peripheral Vein, Percutaneous Approach (ICD-10-PCS; 2023-04-23)
PROC: 30233K1 Transfusion of Nonautologous Frozen Plasma into Peripheral Vein, Percutaneous Approach (ICD-10-PCS; 2023-04-23)
PROC: 4A133R1 Monitoring of Arterial Saturation, Peripheral, Percutaneous Approach (ICD-10-PCS; 2023-04-23)
PROC: 3E033XZ Introduction of Vasopressor into Peripheral Vein, Percutaneous Approach (ICD-10-PCS; 2023-04-23)
PROC: 5A1955Z Respiratory Ventilation, Greater than 96 Consecutive Hours (ICD-10-PCS; 2023-04-23)
PROC: HZ2ZZZZ Detoxification Services for Substance Abuse Treatment (ICD-10-PCS; 2023-04-23)
PROC: 30233J1 Transfusion of Nonautologous Serum Albumin into Peripheral Vein, Percutaneous Approach (ICD-10-PCS; 2023-04-23)
PROC: 0W9G3ZZ Drainage of Peritoneal Cavity, Percutaneous Approach (ICD-10-PCS; 2023-04-24)
DX: K70.31 Alcoholic cirrhosis of liver with ascites (principal); I85.11 Secondary esophageal varices with bleeding; J69.0 Pneumonitis due to inhalation of food and vomit; J96.01 Acute respiratory failure with hypoxia; R57.8 Other shock; K27.4 Chronic or unspecified peptic ulcer, site unspecified, with hemorrhage; K22.6 Gastro-esophageal laceration-hemorrhage syndrome; K51.90 Ulcerative colitis, unspecified, without complications; E87.20 Acidosis, unspecified; D62 Acute posthemorrhagic anemia; K76.6 Portal hypertension; F10.239 Alcohol dependence with withdrawal, unspecified; K21.9 Gastro-esophageal reflux disease without esophagitis; K31.89 Other diseases of stomach and duodenum; K76.82 Hepatic encephalopathy; R53.81 Other malaise; Z91.011 Allergy to milk products; Z79.899 Other long term (current) drug therapy; Z79.2 Long term (current) use of antibiotics; Z98.890 Other specified postprocedural states; Z98.51 Tubal ligation status; Z98.82 Breast implant status; Y90.8 Blood alcohol level of 240 mg/100 ml or more; F10.229 Alcohol dependence with intoxication, unspecified
CPT/HCPCS: 31500; 36415; 36416; 36430; 36556; 36600; 43752; 49083; 71045; 71250; 74018; 80048; 80053; 80306; 80307; 81001; 82140; 82550; 82805; 83605; 83690; 83735; 83880; 84100; 84484; 85014; 85018; 85025; 85060; 85610; 85730; 86850; 86900; 86901; 87040; 87070; 87086; 87205; 89051; 93005; 94002; 94003; 96361; 96365; 96366; 96374; 96376; 99292; C9113; J0692; J0696; J1940; J2060; J2250; J2272; J2354; J2704; J3010; J3411; J3475; J3480; J3490; J7050; J7120; P9016; P9047; P9048

== ENCOUNTER 2023-05-17 09:53 | Outpatient (CLI) | payer OTHER | END 2023-05-17 09:54 | disposition home or self-care (01) | LOC: BICMAMMO 09:53 | PROVIDERS: ATTEND Nurse Practitioner Family | DX: Z12.31 Encounter for screening mammogram for malignant neoplasm of breast (principal); Z98.82 Breast implant status | CPT/HCPCS: 77067 ==

== ENCOUNTER 2023-07-13 10:06 | Outpatient (CLI) | payer OTHER | END 2023-07-13 10:07 | disposition home or self-care (01) | LOC: RAD-FRANK 10:06 | PROVIDERS: ATTEND Nurse Practitioner Family | DX: R07.2 Precordial pain (principal) | CPT/HCPCS: 71046 ==

== ENCOUNTER 2023-07-16 17:06 | Emergency (ER) | payer OTHER ==
[2023-07-16] MEDS ORDERED: Morphine 4 MG/ML VIAL ONE (17:59)
== END 2023-07-16 19:42 | disposition home or self-care (01) ==
LOC: ERS 17:06
DX: M25.511 Pain in right shoulder (principal); M54.6 Pain in thoracic spine; K21.9 Gastro-esophageal reflux disease without esophagitis; M81.0 Age-related osteoporosis without current pathological fracture; W22.01XA Walked into wall, initial encounter; Y93.89 Activity, other specified; Z79.899 Other long term (current) drug therapy
CPT/HCPCS: 71045; 96374; J2270

== ENCOUNTER 2023-08-08 16:50 | Outpatient (CLI) | payer OTHER | END 2023-08-08 16:51 | disposition home or self-care (01) | LOC: RAD-FRANK 16:50 | PROVIDERS: ATTEND Nurse Practitioner Family | DX: R06.02 Shortness of breath (principal) | CPT/HCPCS: 71046 ==

== ENCOUNTER 2023-11-01 18:14 | Inpatient (IN) | payer OTHER ==
[2023-11-01] MEDS ORDERED: LORazepam 2 MG/ML SYR.(CARPUJECT) ONE (18:46)
[2023-11-01] MEDS ORDERED: Pantoprazole 40 MG VIAL ONE (18:46)
[2023-11-01] MEDS ORDERED: cefTRIAXone (ROCEPHIN) 2 GM VIAL ONE (18:46)
[2023-11-01] MEDS ORDERED: Sodium Chloride 0.9% 100 ML ONE (18:46)
[2023-11-01] MEDS ORDERED: Octreotide Acetate 100 MCG/ML VIAL ONE (18:47)
[2023-11-01 18:57] LABS: #Monocytes 0.5 thou/uL (0.11-0.59); #Neutrophils 2.7 thou/uL (1.40-6.50); %Basophils 1.2 % (0.0-1.0); %Lymphocytes 5.2 % (21.0-51.0); %Monocytes 13.7 % (0.0-10.0); %Neutrophils 79.6 % (42.0-75.0); Hematocrit 38.8 % (36.0-47.0); Hemoglobin 13.5 g/dL (12.0-16.0); Mean Corpuscular HGB CONC 34.8 g/dL (32.0-36.0); Mean Corpuscular Hemoglobin 32.9 pg (27.0-31.0); Mean Corpuscular Volume 94.6 fl (78.0-98.0); Mean Platelet Volume 9.3 fL (7.4-10.4); RBC Distribution Width 14.4 % (11.5-14.5); White Blood Cell (WBC) Count 3.4 10x3/uL (4.8-10.8)
[2023-11-01 18:58] LABS: Platelet Count 62 10x3/uL (130-400)
[2023-11-01 19:10] LABS: INR-International Normal Ratio 1.3; Prothrombin Time 15.7 sec (12.0-14.7)
[2023-11-01 19:11] LABS: Actual Bicarbonate (HCO3v) 20.9 mEq/L (22-28); Base Excess -3.1 mEq/L (-2.0 to +3.0); Calcium, Ionized (venous) 1.04 mmol/L (1.16-1.32); Chloride (VBG) 97 mmol/L (98-106); Hematocrit-VBG 40 % (36.0-47.0); Hemoglobin (Hb) 13.6 g/dL (11.7-16.0); Potassium (VBG) 4.22 mmol/L (3.70-5.30); Sodium 135 mmol/L (133-146); pH (venous) 7.403 (7.32-7.43)
[2023-11-01 19:11] LABS: PTT 27.1 sec (22.9-36.1)
[2023-11-01 19:23] LABS: Acetaminophen Less than 10 mcg/mL (10.0-30.0); Lipase 35 U/L (8-78); Salicylate Less than 8.0 mg/dL (15.0-30.0)
[2023-11-01 19:24] LABS: ALT (SGPT) 56 U/L (8-55); AST (SGOT) 169 U/L (5-34); Alkaline Phosphatase 111 U/L (40-110); Anion Gap 20 mmol/L (10-20); BUN (Urea Nitrogen) 12 mg/dL (9.8-20.1); Bilirubin, Total 2.2 mg/dL (0.2-1.2); Calc. Creatinine Clearance 0 mL/min (70-130); Calcium 8.5 mg/dL (7.8-10.44); Carbon Dioxide 21 mmol/L (22-29); Chloride 99 mmol/L (98-107); Estimated GFR 105; Glucose 146 mg/dL (70-105); Potassium 4.1 mmol/L (3.5-5.1); Sodium 136 mmol/L (136-145)
[2023-11-01 19:25] LABS: Troponin I Less than 0.010 ng/mL (< 0.028)
[2023-11-01] MEDS ORDERED: Metoclopramide HCl 10 MG (2 mL) VIAL ONE (19:35)
[2023-11-01] MEDS ORDERED: Dexmedetomidine In 0.9 % NaCl 100 ML IVPB SCH (20:45)
[2023-11-01] MEDS ORDERED: Dexmedetomidine 400 MCG, Admixture Fee 1 EACH in Sodium Chloride 0.9% 96 ML IVPB SCH (21:00)
[2023-11-01] MEDS ORDERED: Multivitamins, Adult 10 ML, Folic Acid 1 MG, Thiamine HCl 100 MG, Admixture Fee 1 EACH ... IV SCH (21:00)
[2023-11-01 22:42] LABS: #Monocytes 0.6 thou/uL (0.11-0.59); #Neutrophils 2.8 thou/uL (1.40-6.50); %Basophils 0.8 % (0.0-1.0); %Lymphocytes 8.6 % (21.0-51.0); %Monocytes 16.4 % (0.0-10.0); %Neutrophils 73.9 % (42.0-75.0); Hematocrit 35.4 % (36.0-47.0); Hemoglobin 12.5 g/dL (12.0-16.0); Mean Corpuscular HGB CONC 35.3 g/dL (32.0-36.0); Mean Corpuscular Hemoglobin 32.9 pg (27.0-31.0); Mean Corpuscular Volume 93.2 fl (78.0-98.0); Mean Platelet Volume 9.3 fL (7.4-10.4); RBC Distribution Width 14.3 % (11.5-14.5); White Blood Cell (WBC) Count 3.7 10x3/uL (4.8-10.8)
[2023-11-01 22:52] LABS: Platelet Count 51 10x3/uL (130-400)
[2023-11-01 22:58] LABS: Lactic Acid 0.9 mmol/L (0.5-2.2)
[2023-11-01 23:02] LABS: Magnesium 1.8 mg/dL (1.6-2.6)
[2023-11-01] MEDS ORDERED: Magnesium Sulfate 2 GM in Sodium Chloride 0.9% 100 ML IVPB SCH (23:45)
[2023-11-01] MEDS ORDERED: Magnesium 2 GM/50 ML(in water) 2 GM in Premix 1 BAG IVPB SCH (23:45)
[2023-11-02] MEDS ORDERED: Lorazepam 2 MG/ML VIAL IM PRN (01:34)
[2023-11-02] MEDS ORDERED: Magnesium 2 GM/50 ML BAG (IN WATER) ONE (03:12)
[2023-11-02 04:07] LABS: Hematocrit 33.8 % (36.0-47.0); Hemoglobin 11.7 g/dL (12.0-16.0); Manual Diff?? YES; Mean Corpuscular HGB CONC 34.6 g/dL (32.0-36.0); Mean Corpuscular Hemoglobin 32.6 pg (27.0-31.0); Mean Corpuscular Volume 94.2 fl (78.0-98.0); Mean Platelet Volume 9.9 fL (7.4-10.4); RBC Distribution Width 14.3 % (11.5-14.5); Red Blood Cell (RBC) Count 3.59 mill/uL (4.20-5.40)
[2023-11-02 04:09] LABS: Platelet Count 49 10x3/uL (130-400)
[2023-11-02 04:10] LABS: Delete Auto Diff?? YES
[2023-11-02 04:31] LABS: ALT (SGPT) 44 U/L (8-55); AST (SGOT) 120 U/L (5-34); Albumin 3.6 g/dL (3.5-5.0); Alkaline Phosphatase 93 U/L (40-110); Anion Gap 11 mmol/L (10-20); BUN (Urea Nitrogen) 13 mg/dL (9.8-20.1); Bilirubin, Total 2.2 mg/dL (0.2-1.2); Calc. Creatinine Clearance 0 mL/min (70-130); Calcium 8.3 mg/dL (7.8-10.44); Carbon Dioxide 26 mmol/L (22-29); Chloride 100 mmol/L (98-107); Estimated GFR 104; Globulin 2.8 g/dL (2.4-3.5); Glucose 142 mg/dL (70-105); Magnesium 2.5 mg/dL (1.6-2.6); Potassium 3.9 mmol/L (3.5-5.1); Protein, Total 6.4 g/dL (6.0-8.3); Sodium 133 mmol/L (136-145)
[2023-11-02 04:45] LABS: CellaVision Operator ID lab.sh2; Large Platelets 9.5 % (0-5); Lymphocytes 17 % (21-51); Macrocytosis SLIGHT = 6-15 cells HPF (0-5); Monocytes 11 % (0-10); Neutrophil 67 % (42-75); Platelet Adequacy Comment Significant decrease; Polychromasia SLIGHT = 2-3 cells HPF (0-2); Smudge Cells 7.9 %; Total Cell Count 63
[2023-11-02] MEDS ORDERED: Pantoprazole 40 MG VIAL ONE (06:35)
[2023-11-02] MEDS: Pantoprazole 40 MG VIAL IVP SCH ×2 (06:47→18:35)
[2023-11-02 11:51] LABS: Hematocrit 34.3 % (36.0-47.0); Hemoglobin 11.6 g/dL (12.0-16.0)
[2023-11-02] MEDS ORDERED: Ondansetron PF 4 MG/2 ML Vial ONE ×2 (13:22→16:32)
[2023-11-02] MEDS: Ondansetron PF 4 MG/2 ML Vial IVP PRN (13:26)
[2023-11-02] MEDS ORDERED: Midazolam HCl 2 mg/2 ml Vial ONE (15:57)
[2023-11-02] MEDS ORDERED: PROPOFOL 20 ML ONE ×2 (15:57→16:11)
[2023-11-02] MEDS ORDERED: Lidocaine 1% PF 5 ML VIAL ONE (16:03)
[2023-11-02] MEDS ORDERED: fentaNYL PF 100 MCG/2 ML SYRINGE ONE (16:45)
[2023-11-02] MEDS ORDERED: fentaNYL 50 mcg/mL 1 mL Vial ONE (17:37)
[2023-11-02] MEDS: cefTRIAXone\\ROCEPHIN 1 GM in Sodium Chloride 0.9% 100 ML IVPB SCH (18:34)
[2023-11-02 18:39] VITALS: BMI 27.1
[2023-11-02 19:35] LABS: Hematocrit 35.7 % (36.0-47.0); Hemoglobin 11.5 g/dL (12.0-16.0)
[2023-11-02] MEDS: Morphine 2 MG/ML VIAL SLOW IVP PRN (19:48)
[2023-11-02] MEDS ORDERED: Multivitamins, Adult 10 ML, Folic Acid 1 MG, Thiamine HCl 100 MG, Admixture Fee 1 EACH ... IV SCH (20:00)
[2023-11-02] MEDS: Lorazepam 2 MG/ML VIAL SLOW IVP PRN ×2 (20:49→22:57)
[2023-11-02] MEDS ORDERED: Metoprolol Tartrate 5 MG (5 mL) VIAL IVP SCH (21:15)
[2023-11-02] MEDS ORDERED: Metoprolol Tartrate 5 MG (5 mL) VIAL IVP PRN (21:24)
[2023-11-02 21:48] LABS: Hemoglobin 11.9 g/dL (12.0-16.0); Manual Diff?? YES; Mean Corpuscular HGB CONC 32.2 g/dL (32.0-36.0); Mean Corpuscular Hemoglobin 32.7 pg (27.0-31.0); RBC Distribution Width 14.8 % (11.5-14.5); Red Blood Cell (RBC) Count 3.64 mill/uL (4.20-5.40)
[2023-11-02 21:53] LABS: Delete Auto Diff?? YES; Mean Corpuscular Volume 101.6 fl (78.0-98.0); Platelet Count 35 10x3/uL (130-400)
[2023-11-02 22:15] LABS: CellaVision Operator ID lab.abc; Eosinophils 9 % (0-10); Large Platelets 7.1 % (0-5); Lymphocytes 18 % (21-51); Monocytes 15 % (0-10); Neutrophil 56 % (42-75); Platelet Adequacy Comment Significant decrease; RBC Morphology Within Normal Limits; Smudge Cells 7.1 %; Total Cell Count 99
[2023-11-02 22:17] LABS: Anion Gap 14 mmol/L (10-20); BUN (Urea Nitrogen) 10 mg/dL (9.8-20.1); Calc. Creatinine Clearance 124 mL/min (70-130); Calcium 8.1 mg/dL (7.8-10.44); Carbon Dioxide 22 mmol/L (22-29); Chloride 103 mmol/L (98-107); Estimated GFR 106; Glucose 98 mg/dL (70-105); Magnesium 2.1 mg/dL (1.6-2.6); Potassium 3.7 mmol/L (3.5-5.1); Sodium 135 mmol/L (136-145)
[2023-11-02 22:19] LABS: Troponin I Less than 0.010 ng/mL (< 0.028)
[2023-11-02] MEDS: Octreotide Acetate 1,250 MCG in Sodium Chloride 0.9% 250 ML 250 ML IVPB SCH (22:57)
[2023-11-03] MEDS: Morphine 2 MG/ML VIAL SLOW IVP PRN ×3 (00:21→16:18)
[2023-11-03] MEDS ORDERED: Lorazepam 2 MG/ML VIAL SLOW IVP PRN (01:34)
[2023-11-03] MEDS: Pantoprazole 40 MG VIAL IVP SCH ×2 (05:05→19:04)
[2023-11-03 06:01] LABS: Hematocrit 36.5 % (36.0-47.0); Hemoglobin 12.2 g/dL (12.0-16.0); Manual Diff?? YES; Mean Corpuscular HGB CONC 33.4 g/dL (32.0-36.0); Mean Corpuscular Hemoglobin 33.1 pg (27.0-31.0); Mean Corpuscular Volume 98.9 fl (78.0-98.0); Mean Platelet Volume 9.9 fL (7.4-10.4); RBC Distribution Width 14.6 % (11.5-14.5); Red Blood Cell (RBC) Count 3.69 mill/uL (4.20-5.40); White Blood Cell (WBC) Count 1.9 10x3/uL (4.8-10.8)
[2023-11-03 06:02] LABS: Delete Auto Diff?? YES; Platelet Count 41 10x3/uL (130-400)
[2023-11-03 06:27] LABS: Band 1 % (5-11); CellaVision Operator ID lab.abc; Eosinophils 5 % (0-10); Large Platelets 3.9 % (0-5); Lymphocytes 30 % (21-51); Monocytes 8 % (0-10); Neutrophil 55 % (42-75); Platelet Adequacy Comment Platelets Decreased; RBC Morphology Within Normal Limits; Smudge Cells 14.6 %; Total Cell Count 103
[2023-11-03 06:47] LABS: ALT (SGPT) 34 U/L (8-55); AST (SGOT) 87 U/L (5-34); Albumin 3.4 g/dL (3.5-5.0); Alkaline Phosphatase 84 U/L (40-110); Anion Gap 10 mmol/L (10-20); BUN (Urea Nitrogen) 7 mg/dL (9.8-20.1); Bilirubin, Total 2.2 mg/dL (0.2-1.2); Calc. Creatinine Clearance 120 mL/min (70-130); Carbon Dioxide 25 mmol/L (22-29); Chloride 102 mmol/L (98-107); Estimated GFR 105; Globulin 2.6 g/dL (2.4-3.5); Glucose 101 mg/dL (70-105); Magnesium 1.9 mg/dL (1.6-2.6); Potassium 3.3 mmol/L (3.5-5.1); Sodium 134 mmol/L (136-145)
[2023-11-03] MEDS: Multivit, Therapeutic 1 TAB PO SCH (10:19)
[2023-11-03] MEDS: Folic Acid 1 MG TAB PO SCH (10:20)
[2023-11-03] MEDS: Propranolol 10 MG TAB PO SCH ×3 (10:20→20:12)
[2023-11-03] MEDS: Thiamine 100 MG TAB PO SCH (10:21)
[2023-11-03 11:14] LABS: Hematocrit 35.2 % (36.0-47.0); Hemoglobin 11.8 g/dL (12.0-16.0)
[2023-11-03] MEDS: Lactulose 20 GM (30 mL) UDCUP PO SCH ×2 (16:18→20:12)
[2023-11-03] MEDS: cefTRIAXone\\ROCEPHIN 1 GM in Sodium Chloride 0.9% 100 ML IVPB SCH (19:04)
[2023-11-03] MEDS: Rifaximin 550 MG TAB PO SCH (20:12)
[2023-11-03] MEDS: HYDROcodone/Acetaminophen 5/325 mg Tablet PO PRN (20:13)
[2023-11-03] MEDS ORDERED: rOPINIRole HCl 1 MG TAB PO SCH (21:00)
[2023-11-03] MEDS ORDERED: traZODone HCl 50 MG TAB PO SCH (21:00)
[2023-11-04] MEDS ORDERED: Lorazepam 2 MG/ML VIAL SLOW IVP PRN (01:34)
[2023-11-04] MEDS ORDERED: Morphine 2 MG/ML VIAL SLOW IVP PRN (03:25)
[2023-11-04 04:56] LABS: #Eosinphils 0.1 thou/uL (0.0-0.7); #Monocytes 0.3 thou/uL (0.11-0.59); #Neutrophils 1.5 thou/uL (1.40-6.50); %Basophils 0.9 % (0.0-1.0); %Eosinophils 4.3 % (0.0-10.0); %Lymphocytes 17.4 % (21.0-51.0); %Monocytes 13.5 % (0.0-10.0); %Neutrophils 63.5 % (42.0-75.0); Hematocrit 33.9 % (36.0-47.0); Hemoglobin 11.3 g/dL (12.0-16.0); Mean Corpuscular HGB CONC 33.3 g/dL (32.0-36.0); Mean Corpuscular Hemoglobin 32.3 pg (27.0-31.0); Mean Corpuscular Volume 96.9 fl (78.0-98.0); RBC Distribution Width 14.2 % (11.5-14.5); White Blood Cell (WBC) Count 2.3 10x3/uL (4.8-10.8)
[2023-11-04 05:24] LABS: ALT (SGPT) 36 U/L (8-55); AST (SGOT) 94 U/L (5-34); Albumin 3.2 g/dL (3.5-5.0); Alkaline Phosphatase 89 U/L (40-110); Anion Gap 11 mmol/L (10-20); BUN (Urea Nitrogen) 7 mg/dL (9.8-20.1); Bilirubin, Total 1.9 mg/dL (0.2-1.2); Calc. Creatinine Clearance 112 mL/min (70-130); Calcium 8.2 mg/dL (7.8-10.44); Carbon Dioxide 22 mmol/L (22-29); Chloride 102 mmol/L (98-107); Estimated GFR 103; Globulin 2.5 g/dL (2.4-3.5); Glucose 128 mg/dL (70-105); Magnesium 1.7 mg/dL (1.6-2.6); Potassium 3.5 mmol/L (3.5-5.1); Protein, Total 5.7 g/dL (6.0-8.3); Sodium 131 mmol/L (136-145)
[2023-11-04 05:27] LABS: Platelet Count 40 10x3/uL (130-400)
[2023-11-04] MEDS: Octreotide Acetate 1,250 MCG in Sodium Chloride 0.9% 250 ML 250 ML IVPB SCH (06:25)
[2023-11-04] MEDS: Pantoprazole 40 MG VIAL IVP SCH (06:27)
[2023-11-04] MEDS ORDERED: Spironolactone 100 MG TAB PO SCH (08:00)
[2023-11-04] MEDS: Propranolol 10 MG TAB PO SCH (09:19)
[2023-11-04] MEDS: Multivit, Therapeutic 1 TAB PO SCH (09:19)
[2023-11-04] MEDS: Ondansetron PF 4 MG/2 ML Vial IVP PRN (09:19)
[2023-11-04] MEDS: Thiamine 100 MG TAB PO SCH (09:19)
[2023-11-04] MEDS: Rifaximin 550 MG TAB PO SCH (09:20)
[2023-11-04] MEDS: Folic Acid 1 MG TAB PO SCH (09:20)
[2023-11-04] MEDS: Lactulose 20 GM (30 mL) UDCUP PO SCH ×2 (09:20→09:26)
[2023-11-04 10:10] VITALS: TEMP 98.6
[2023-11-04] MEDS: HYDROcodone/Acetaminophen 5/325 mg Tablet PO PRN (11:59)
[2023-11-04 12:04] VITALS: BP 139/74
[2023-11-05] MEDS ORDERED: Lorazepam 2 MG/ML VIAL SLOW IVP PRN (01:34)
== END 2023-11-04 12:53 | disposition home or self-care (01) | DRG 369 ==
LOC: ERS 18:14 → ERHOLD 20:45 → 2NO 11-02 18:09
PROVIDERS: ADMIT Internal Medicine; ATTEND Hospitalist
PROC: 06L38CZ Occlusion of Esophageal Vein with Extraluminal Device, Via Natural or Artificial Opening Endoscopic (ICD-10-PCS; principal; 2023-11-01)
PROC: 4A043R1 Measurement of Venous Saturation, Peripheral, Percutaneous Approach (ICD-10-PCS; 2023-11-01)
DX: K21.01 Gastro-esophageal reflux disease with esophagitis, with bleeding (principal); D62 Acute posthemorrhagic anemia; I85.00 Esophageal varices without bleeding; E87.20 Acidosis, unspecified; F10.239 Alcohol dependence with withdrawal, unspecified; K76.6 Portal hypertension; K21.9 Gastro-esophageal reflux disease without esophagitis; K70.31 Alcoholic cirrhosis of liver with ascites; D69.6 Thrombocytopenia, unspecified; D64.9 Anemia, unspecified; K22.70 Barrett's esophagus without dysplasia; K31.89 Other diseases of stomach and duodenum; K76.82 Hepatic encephalopathy; Z91.011 Allergy to milk products; Z79.899 Other long term (current) drug therapy
CPT/HCPCS: 36415; 71045; 80053; 80307; 82805; 83605; 83690; 83735; 84484; 85025; 85610; 85730; 86850; 86900; 86901; 87040; 93005; 93010; 94760; C9113; J0696; J2060; J2250; J2272; J2354; J2405; J2704; J2765; J3010; J3411; J3475; J3490; J7042; J7050

== ENCOUNTER 2023-12-02 20:13 | Emergency (ER) | payer OTHER ==
[2023-12-02 21:57] LABS: Hematocrit 36.1 % (36.0-47.0); Hemoglobin 12.4 g/dL (12.0-16.0); Manual Diff?? YES; Mean Corpuscular HGB CONC 34.3 g/dL (32.0-36.0); Mean Corpuscular Hemoglobin 31.7 pg (27.0-31.0); Mean Corpuscular Volume 92.3 fl (78.0-98.0); Mean Platelet Volume 10.1 fL (7.4-10.4); RBC Distribution Width 15.4 % (11.5-14.5); Red Blood Cell (RBC) Count 3.91 mill/uL (4.20-5.40); White Blood Cell (WBC) Count 2.4 10x3/uL (4.8-10.8)
[2023-12-02 22:03] LABS: Platelet Count 33 10x3/uL (130-400)
[2023-12-02 22:04] LABS: Delete Auto Diff?? YES
[2023-12-02 22:11] LABS: INR-International Normal Ratio 1.2; PTT 30.9 sec (22.9-36.1)
[2023-12-02] MEDS ORDERED: Morphine 4 MG/ML VIAL ONE (22:32)
[2023-12-02 22:34] LABS: CellaVision Operator ID lab.abc; Eosinophils 2 % (0-10); Lymphocytes 29 % (21-51); Monocytes 11 % (0-10); Neutrophil 55 % (42-75); Platelet Adequacy Comment Platelets Decreased; Polychromasia SLIGHT = 2-3 cells HPF (0-2); Reactive Lymphocytes 2 % (0-10); Total Cell Count 100
[2023-12-02 22:38] LABS: ALT (SGPT) 71 U/L (8-55); AST (SGOT) 342 U/L (5-34); Albumin 3.8 g/dL (3.5-5.0); Alkaline Phosphatase 195 U/L (40-110); Anion Gap 16 mmol/L (10-20); BUN (Urea Nitrogen) Less than 4 mg/dL (9.8-20.1); Bilirubin, Total 2.3 mg/dL (0.2-1.2); Calc. Creatinine Clearance 0 mL/min (70-130); Carbon Dioxide 21 mmol/L (22-29); Chloride 106 mmol/L (98-107); Estimated GFR 107; Globulin 3.5 g/dL (2.4-3.5); Glucose 104 mg/dL (70-105); Lipase 79 U/L (8-78); Potassium 3.2 mmol/L (3.5-5.1); Protein, Total 7.3 g/dL (6.0-8.3); Sodium 140 mmol/L (136-145)
== END 2023-12-02 23:17 | disposition home or self-care (01) ==
LOC: ERS 20:13
DX: R07.89 Other chest pain (principal); R10.9 Unspecified abdominal pain; R51.9 Headache, unspecified; Y04.8XXA Assault by other bodily force, initial encounter
CPT/HCPCS: 36415; 70450; 71260; 72125; 74177; 80053; 83690; 85025; 85610; 85730; 93005; 96374; J2270

== ENCOUNTER 2023-12-05 10:12 | Emergency (ER) | payer OTHER ==
[2023-12-05] MEDS ORDERED: Acetaminophen 500 MG TAB ONE (13:06)
== END 2023-12-05 13:42 | disposition home or self-care (01) ==
LOC: ERS 10:12
DX: R07.81 Pleurodynia (principal); R33.9 Retention of urine, unspecified; K21.9 Gastro-esophageal reflux disease without esophagitis; K74.60 Unspecified cirrhosis of liver; K51.90 Ulcerative colitis, unspecified, without complications; K27.9 Peptic ulcer, site unspecified, unspecified as acute or chronic, without hemorrhage or perforation; Z98.51 Tubal ligation status; Z79.899 Other long term (current) drug therapy
CPT/HCPCS: 51702; 71045

== ENCOUNTER 2023-12-10 11:42 | Emergency (ER) | payer OTHER ==
[2023-12-10 12:48] LABS: Hematocrit 37.8 % (36.0-47.0); Hemoglobin 12.5 g/dL (12.0-16.0); Manual Diff?? YES; Mean Corpuscular HGB CONC 33.1 g/dL (32.0-36.0); Mean Corpuscular Hemoglobin 30.8 pg (27.0-31.0); Mean Corpuscular Volume 93.1 fl (78.0-98.0); Mean Platelet Volume 9.7 fL (7.4-10.4); RBC Distribution Width 15.9 % (11.5-14.5); Red Blood Cell (RBC) Count 4.06 mill/uL (4.20-5.40); White Blood Cell (WBC) Count 3.3 10x3/uL (4.8-10.8)
[2023-12-10 12:49] LABS: Delete Auto Diff?? YES; Platelet Count 51 10x3/uL (130-400)
[2023-12-10] MEDS ORDERED: Morphine 4 MG/ML VIAL SLOW IVP SCH (13:00)
[2023-12-10] MEDS ORDERED: Ondansetron PF 4 MG/2 ML Vial IVP SCH (13:00)
[2023-12-10 13:09] LABS: ALT (SGPT) 48 U/L (8-55); AST (SGOT) 226 U/L (5-34); Albumin 3.7 g/dL (3.5-5.0); Alkaline Phosphatase 167 U/L (40-110); Anion Gap 16 mmol/L (10-20); BUN (Urea Nitrogen) Less than 4 mg/dL (9.8-20.1); Bilirubin, Total 1.7 mg/dL (0.2-1.2); Calc. Creatinine Clearance 0 mL/min (70-130); Carbon Dioxide 21 mmol/L (22-29); Chloride 105 mmol/L (98-107); Estimated GFR 106; Globulin 3.5 g/dL (2.4-3.5); Glucose 93 mg/dL (70-105); Lipase 211 U/L (8-78); Potassium 3.8 mmol/L (3.5-5.1); Protein, Total 7.2 g/dL (6.0-8.3); Sodium 138 mmol/L (136-145)
[2023-12-10 13:21] LABS: Anisocytosis SLIGHT = 6-15 cells HPF (0-5); Band 1 % (5-11); CellaVision Operator ID LAB.MJL; Eosinophils 3 % (0-10); Large Platelets 11.8 % (0-5); Lymphocytes 27 % (21-51); Monocytes 12 % (0-10); Neutrophil 56 % (42-75); Platelet Adequacy Comment Platelets Decreased; Polychromasia SLIGHT = 2-3 cells HPF (0-2); Reactive Lymphocytes 2 % (0-10); Total Cell Count 102
[2023-12-10] MEDS ORDERED: Morphine 4 MG/ML VIAL ONE (13:58)
[2023-12-10] MEDS ORDERED: Ondansetron PF 4 MG/2 ML Vial ONE (13:59)
[2023-12-10] MEDS ORDERED: Multivitamins, Adult 10 ML, Thiamine HCl 100 MG, Folic Acid 1 MG in Dextrose 5 %-0.45 %... IV SCH (14:00)
[2023-12-10 14:43] LABS: Acetaminophen Less than 10 mcg/mL (10.0-30.0); Alcohol 368.7 mg/dL (Less than 10); Salicylate Less than 8.0 mg/dL (15.0-30.0)
[2023-12-10 15:02] LABS: Bacteria/HPF None Seen HPF (None Seen); Bilirubin Negative (Negative); Blood, Urine Negative (Negative); CAUTI Indications for Culture Dysuria,urgency,freq; Clarity Clear (Clear); Glucose, Urine (Dipstick) Normal (Negative); Ketone, Urine Negative (Negative); Leukocyte Negative Leu/uL (Negative); Nitrite Negative (Negative); Protein, Urine (Dipstick) Negative (Neg-Trace); RBC/HPF 0-3 HPF (0-3); Specific Gravity, Urine 1.015 (1.002-1.036); Squamous Epithelial None Seen HPF (0-3); Urobilinogen Normal mg/dL (Less than 2); WBC/HPF 0-3 HPF (0-3)
[2023-12-10 15:08] LABS: Urine Culture Reflex No No
[2023-12-10] MEDS ORDERED: Ondansetron PF 4 MG/2 ML Vial IVP PRN (17:22)
[2023-12-10] MEDS ORDERED: Acetaminophen 325 MG TAB PO PRN (17:22)
[2023-12-10] MEDS ORDERED: Lorazepam 2 MG/ML VIAL IM PRN (17:24)
[2023-12-10] MEDS ORDERED: Lorazepam 1 MG TAB PO PRN (17:24)
[2023-12-10] MEDS ORDERED: Electrolyte Replacement Protocol 1 EACH FS SCH (17:30)
[2023-12-10] MEDS ORDERED: Lorazepam 1 MG TAB PO SCH (17:30)
[2023-12-10] MEDS ORDERED: Lactated Ringer's 1,000 ML IV SCH (17:30)
[2023-12-10] MEDS ORDERED: Thiamine HCl 200 MG/2 ML VIAL SLOW IVP SCH (17:30)
[2023-12-10] MEDS ORDERED: Folic Acid 1 MG TAB PO SCH (20:30)
[2023-12-10] MEDS ORDERED: Multivit, Therapeutic 1 TAB PO SCH (20:30)
[2023-12-10] MEDS ORDERED: Propranolol 10 MG TAB PO SCH (21:00)
[2023-12-10] MEDS ORDERED: Temazepam 15 MG CAP PO SCH (21:00)
[2023-12-10] MEDS ORDERED: rOPINIRole HCl 1 MG TAB PO SCH (21:00)
[2023-12-10] MEDS ORDERED: traZODone HCl 50 MG TAB PO SCH (21:00)
[2023-12-10] MEDS ORDERED: Lactulose 20 GM (30 mL) UDCUP PO SCH (21:00)
[2023-12-10] MEDS ORDERED: Spironolactone 100 MG TAB PO SCH (21:00)
[2023-12-10] MEDS ORDERED: Rifaximin 550 MG TAB PO SCH (21:00)
[2023-12-11] MEDS ORDERED: Folic Acid 1 MG TAB PO SCH (09:00)
[2023-12-11] MEDS ORDERED: Multivit, Therapeutic 1 TAB PO SCH (09:00)
[2023-12-11] MEDS ORDERED: Lorazepam 1 MG TAB PO PRN (17:24)
[2023-12-12] MEDS ORDERED: Lorazepam 1 MG TAB PO PRN (17:24)
[2023-12-12] MEDS ORDERED: Lorazepam 0.5 MG TAB PO SCH (17:30)
[2023-12-13] MEDS ORDERED: Lorazepam 0.5 MG TAB PO PRN (17:24)
[2023-12-13] MEDS ORDERED: Thiamine 100 MG TAB PO SCH (17:30)
== END 2023-12-10 19:05 | disposition home or self-care (01) ==
LOC: ERS 11:42 → UNDOADMOB 17:29 → T4-A 17:29 → ERS 19:05
DX: K85.90 Acute pancreatitis without necrosis or infection, unspecified (principal); F10.229 Alcohol dependence with intoxication, unspecified; Y90.8 Blood alcohol level of 240 mg/100 ml or more; K21.9 Gastro-esophageal reflux disease without esophagitis; Z79.899 Other long term (current) drug therapy
CPT/HCPCS: 36415; 74177; 80053; 80307; 81001; 83605; 83690; 85025; 93005; 96374; 96375; J2270; J2405; J3411; J7042; J7120

== ENCOUNTER 2023-12-21 10:09 | Emergency (ER) | payer OTHER ==
[2023-12-21 11:15] LABS: Hematocrit 35.1 % (36.0-47.0); Hemoglobin 11.3 g/dL (12.0-16.0); Manual Diff?? YES; Mean Corpuscular HGB CONC 32.2 g/dL (32.0-36.0); Mean Corpuscular Hemoglobin 30.7 pg (27.0-31.0); Mean Corpuscular Volume 95.4 fl (78.0-98.0); Mean Platelet Volume 10.2 fL (7.4-10.4); RBC Distribution Width 16.4 % (11.5-14.5); Red Blood Cell (RBC) Count 3.68 mill/uL (4.20-5.40); White Blood Cell (WBC) Count 2.6 10x3/uL (4.8-10.8)
[2023-12-21 11:20] LABS: Platelet Count 66 10x3/uL (130-400)
[2023-12-21 11:21] LABS: Delete Auto Diff?? YES
[2023-12-21 11:35] LABS: ALT (SGPT) 38 U/L (8-55); AST (SGOT) 156 U/L (5-34); Albumin 3.4 g/dL (3.5-5.0); Alkaline Phosphatase 162 U/L (40-110); Anion Gap 14 mmol/L (10-20); BUN (Urea Nitrogen) Less than 4 mg/dL (9.8-20.1); Calc. Creatinine Clearance 0 mL/min (70-130); Calcium 8.8 mg/dL (7.8-10.44); Carbon Dioxide 19 mmol/L (22-29); Chloride 110 mmol/L (98-107); Estimated GFR 109; Globulin 3.6 g/dL (2.4-3.5); Glucose 83 mg/dL (70-105); Lipase 51 U/L (8-78); Potassium 3.9 mmol/L (3.5-5.1); Sodium 139 mmol/L (136-145)
[2023-12-21 11:41] LABS: Anisocytosis MARKED = >30 cells HPF (0-5); Band 1 % (5-11); CellaVision Operator ID LAB.CMB; Eosinophils 4 % (0-10); Large Platelets 13.2 % (0-5); Lymphocytes 15 % (21-51); Macrocytosis MARKED = >30 cells HPF (0-5); Monocytes 15 % (0-10); Neutrophil 64 % (42-75); Ovalocytes SLIGHT = 2-5 cells HPF (0-1); Platelet Adequacy Comment Platelets Decreased; Total Cell Count 106
[2023-12-21] MEDS ORDERED: Morphine 4 MG/ML VIAL ONE (13:23)
[2023-12-21 13:32] LABS: Bacteria/HPF None Seen HPF (None Seen); Bilirubin Negative (Negative); Blood, Urine Negative (Negative); CAUTI Indications for Culture Dysuria,urgency,freq; Clarity Clear (Clear); Glucose, Urine (Dipstick) Normal (Negative); Ketone, Urine Negative (Negative); Leukocyte 75 Leu/uL (Negative); Nitrite Negative (Negative); Protein, Urine (Dipstick) Negative (Neg-Trace); RBC/HPF 0-3 HPF (0-3); Specific Gravity, Urine 1.001 (1.002-1.036); Squamous Epithelial None Seen HPF (0-3); Urobilinogen Normal mg/dL (Less than 2); WBC/HPF 0-3 HPF (0-3)
[2023-12-21 13:34] LABS: Urine Culture Reflex No No
[2023-12-21 14:03] LABS: INR-International Normal Ratio 1.2; PTT 30.8 sec (22.9-36.1); Prothrombin Time 15.3 sec (12.0-14.7)
== END 2023-12-21 14:23 | disposition home or self-care (01) ==
LOC: ERS 10:09
DX: K70.31 Alcoholic cirrhosis of liver with ascites (principal); K82.8 Other specified diseases of gallbladder; D61.818 Other pancytopenia; K85.90 Acute pancreatitis without necrosis or infection, unspecified; K21.9 Gastro-esophageal reflux disease without esophagitis; Z49.02 Encounter for fitting and adjustment of peritoneal dialysis catheter; Z79.899 Other long term (current) drug therapy
CPT/HCPCS: 36415; 76705; 80053; 81001; 83690; 85025; 85610; 85730; 94760; 96374; J2270

== ENCOUNTER 2024-01-04 03:54 | Emergency (ER) | payer OTHER ==
[2024-01-04 04:29] LABS: ALT (SGPT) 39 U/L (8-55); AST (SGOT) 158 U/L (5-34); Albumin 3.6 g/dL (3.5-5.0); Alkaline Phosphatase 151 U/L (40-110); Anion Gap 14 mmol/L (10-20); BUN (Urea Nitrogen) Less than 4 mg/dL (9.8-20.1); Bilirubin, Total 1.5 mg/dL (0.2-1.2); Calc. Creatinine Clearance 0 mL/min (70-130); Calcium 9.3 mg/dL (7.8-10.44); Carbon Dioxide 23 mmol/L (22-29); Chloride 106 mmol/L (98-107); Estimated GFR 105; Globulin 3.8 g/dL (2.4-3.5); Glucose 102 mg/dL (70-105); Lipase 49 U/L (8-78); Potassium 3.6 mmol/L (3.5-5.1); Protein, Total 7.4 g/dL (6.0-8.3); Sodium 139 mmol/L (136-145)
[2024-01-04 04:30] LABS: #Basophils Less than 0.03 10x3/uL (0.0-0.2); %Basophils 0.9 % (0.0-1.0); %Eosinophils 4.9 % (0.0-10.0); %Lymphocytes 29.8 % (21.0-51.0); %Monocytes 17.8 % (0.0-10.0); %Neutrophils 46.6 % (42.0-75.0); Hematocrit 33.9 % (36.0-47.0); Hemoglobin 11.1 g/dL (12.0-16.0); Mean Corpuscular HGB CONC 32.7 g/dL (32.0-36.0); Mean Corpuscular Hemoglobin 29.5 pg (27.0-31.0); Mean Corpuscular Volume 90.2 fL (78.0-98.0); Mean Platelet Volume 10.3 fL (7.4-10.4); Platelet Count 54 10x3/uL (130-400); RBC Distribution Width 15.7 % (11.5-14.5); Red Blood Cell (RBC) Count 3.76 mill/uL (4.20-5.40)
[2024-01-04] MEDS ORDERED: Pantoprazole 40 MG VIAL ONE (04:43)
[2024-01-04] MEDS ORDERED: fentaNYL 50 mcg/mL 1 mL Vial ONE (04:43)
[2024-01-04] MEDS ORDERED: Ondansetron PF 4 MG/2 ML Vial ONE (04:43)
[2024-01-04 04:54] LABS: Platelet Adequacy Comment Platelets Decreased; RBC Morphology Within Normal Limits
[2024-01-04 05:21] LABS: INR-International Normal Ratio 1.2; PTT 33.5 sec (22.9-36.1)
[2024-01-04] MEDS ORDERED: Ketorolac Tromethamine 30 MG (1 mL) VIAL ONE (06:35)
[2024-01-04] MEDS ORDERED: Iopamidol-370 76% 500 ML MDV (1 ML CHARGE) ONE (12:13)
== END 2024-01-04 06:42 | disposition home or self-care (01) ==
LOC: ERS 03:54
DX: K70.31 Alcoholic cirrhosis of liver with ascites (principal); F10.20 Alcohol dependence, uncomplicated; K21.9 Gastro-esophageal reflux disease without esophagitis; Z79.899 Other long term (current) drug therapy
CPT/HCPCS: 74177; 80053; 82140; 83690; 85025; 85610; 85730; 93005; 94760; 96374; 96375; C9113; J1885; J2405; J3010; Q9967

== ENCOUNTER 2024-03-11 03:52 | Inpatient (IN) | payer OTHER, SELFPAY ==
[2024-03-11] MEDS ORDERED: Dicyclomine 20 MG/2 ML VIAL ONE (04:30)
[2024-03-11] MEDS ORDERED: Ondansetron ODT 4 MG TAB ONE (04:30)
[2024-03-11 05:02] LABS: Hematocrit 31.3 % (36.0-47.0); Hemoglobin 10.1 g/dL (12.0-16.0); Mean Corpuscular HGB CONC 32.3 g/dL (32.0-36.0); Mean Corpuscular Hemoglobin 26.6 pg (27.0-31.0); Mean Corpuscular Volume 82.6 fL (78.0-98.0); Platelet Count 53 10x3/uL (130-400); RBC Distribution Width 18.2 % (11.5-14.5); Red Blood Cell (RBC) Count 3.79 mill/uL (4.20-5.40)
[2024-03-11 05:17] LABS: Burr Cells SLIGHT = 2-5 cells HPF (0-1); Eosinophils 1 % (0-10); Lymphocytes 17 % (21-51); Microcytosis SLIGHT = 6-15 cells HPF (0-5); Monocytes 18 % (0-10); Neutrophil 61 % (42-75); Platelet Adequacy Comment Significant Decrease; Polychromasia SLIGHT = 2-3 cells HPF (0-2); Target Cells SLIGHT = 2-5 cells HPF (0-1); Tear Drops SLIGHT = 2-5 cells HPF (0-1)
[2024-03-11] MEDS ORDERED: Morphine 2 MG/ML VIAL ONE (06:27)
[2024-03-11 06:42] LABS: ALT (SGPT) 33 U/L (8-55); AST (SGOT) 150 U/L (5-34); Albumin 2.8 g/dL (3.5-5.0); Alkaline Phosphatase 136 U/L (40-110); Anion Gap 14 mmol/L (10-20); BUN (Urea Nitrogen) Less than 4 mg/dL (9.8-20.1); Calc. Creatinine Clearance 0 mL/min (70-130); Calcium 8.3 mg/dL (7.8-10.44); Carbon Dioxide 20 mmol/L (22-29); Chloride 112 mmol/L (98-107); Estimated GFR 111; Globulin 3.8 g/dL (2.4-3.5); Glucose 90 mg/dL (70-105); Lipase 1742 U/L (8-78); Potassium 3.6 mmol/L (3.5-5.1); Protein, Total 6.6 g/dL (6.0-8.3); Sodium 142 mmol/L (136-145)
[2024-03-11 06:42] LABS: RBC Count-Automated (BF) 7606 /cu.mm; WBC/Nucleated-Auto (BF) 484 /cu.mm
[2024-03-11 07:04] LABS: BF Color Yellow; Body Fluid Source Ascites Body Fluid; Clarity Hazy (Clear); Tube # EDTA
[2024-03-11 07:06] LABS: BF Segmented Neutrophils 4 %; Cell Count Non Hematic 91 %; Lymphocytes 5 %
[2024-03-11] MEDS ORDERED: Senokot S 8.6-50 MG TAB PO PRN (07:33)
[2024-03-11] MEDS ORDERED: Calcium Carbonate 500 MG ChewTAB PO PRN (07:33)
[2024-03-11] MEDS ORDERED: cefTRIAXone (ROCEPHIN) 2 GM VIAL ONE (08:39)
[2024-03-11] MEDS ORDERED: Sodium Chloride 0.9% 100 ML ONE (08:39)
[2024-03-11] MEDS ORDERED: Pantoprazole DR 40 MG TAB PO SCH (09:00)
[2024-03-11 09:11] VITALS: BMI 27.4
[2024-03-11 09:54] LABS: Hematocrit 32.5 % (36.0-47.0); Hemoglobin 10.1 g/dL (12.0-16.0); Mean Corpuscular HGB CONC 31.1 g/dL (32.0-36.0); Mean Corpuscular Volume 86.9 fL (78.0-98.0); Mean Platelet Volume 10.4 fL (7.4-10.4); Platelet Count 52 10x3/uL (130-400); RBC Distribution Width 17.9 % (11.5-14.5); Red Blood Cell (RBC) Count 3.74 mill/uL (4.20-5.40)
[2024-03-11] MEDS: Morphine 2 MG/ML VIAL SLOW IVP PRN (10:00)
[2024-03-11] MEDS: Lactated Ringer's 1,000 ML IV SCH (10:01)
[2024-03-11] MEDS: Pantoprazole 40 MG VIAL IVP SCH (10:05)
[2024-03-11] MEDS: Lactulose 20 GM (30 mL) UDCUP PO SCH (10:06)
[2024-03-11] MEDS: Multivit, Therapeutic 1 TAB PO SCH (10:07)
[2024-03-11] MEDS: Propranolol 10 MG TAB PO SCH (10:07)
[2024-03-11] MEDS: Rifaximin 550 MG TAB PO SCH (10:07)
[2024-03-11] MEDS: Folic Acid 1 MG TAB PO SCH (10:07)
[2024-03-11] MEDS: Thiamine HCl 200 MG/2 ML VIAL SLOW IVP SCH (10:07)
[2024-03-11] MEDS: Multivitamin w/Zinc Stress 1 TAB PO SCH (10:09)
[2024-03-11 11:17] LABS: Anisocytosis SLIGHT = 6-15 cells HPF (0-5); Band 5 % (5-11); Burr Cells SLIGHT = 2-5 cells HPF (0-1); Eosinophils 2 % (0-10); Large Platelets 5.7 % (0-5); Lymphocytes 18 % (21-51); Monocytes 11 % (0-10); Neutrophil 65 % (42-75); Platelet Adequacy Comment Significant Decrease
[2024-03-11] MEDS: Lorazepam 1 MG TAB PO PRN (13:23)
[2024-03-11] MEDS: rOPINIRole HCl 1 MG TAB PO SCH (20:29)
[2024-03-11] MEDS: Temazepam 15 MG CAP PO SCH (20:29)
[2024-03-12] MEDS: Ondansetron PF 4 MG/2 ML Vial IVP PRN (02:45)
[2024-03-12 06:00] LABS: Hematocrit 31.8 % (36.0-47.0); Mean Corpuscular HGB CONC 31.4 g/dL (32.0-36.0); Mean Corpuscular Hemoglobin 26.9 pg (27.0-31.0); Mean Corpuscular Volume 85.5 fL (78.0-98.0); Platelet Count 38 10x3/uL (130-400); RBC Distribution Width 17.3 % (11.5-14.5); Red Blood Cell (RBC) Count 3.72 mill/uL (4.20-5.40)
[2024-03-12 06:06] LABS: INR-International Normal Ratio 1.3; Prothrombin Time 16.4 sec (12.0-14.7)
[2024-03-12 06:25] LABS: ALT (SGPT) 31 U/L (8-55); AST (SGOT) 96 U/L (5-34); Albumin 2.7 g/dL (3.5-5.0); Alkaline Phosphatase 91 U/L (40-110); Anion Gap 13 mmol/L (10-20); BUN (Urea Nitrogen) 5 mg/dL (9.8-20.1); Bilirubin, Total 1.7 mg/dL (0.2-1.2); Calc. Creatinine Clearance 143 mL/min (70-130); Calcium 8.2 mg/dL (7.8-10.44); Carbon Dioxide 22 mmol/L (22-29); Chloride 104 mmol/L (98-107); Estimated GFR 109; Globulin 3.6 g/dL (2.4-3.5); Glucose 75 mg/dL (70-105); Potassium 3.3 mmol/L (3.5-5.1); Protein, Total 6.3 g/dL (6.0-8.3); Sodium 136 mmol/L (136-145)
[2024-03-12 06:29] LABS: Bilirubin, Direct 0.9 mg/dL (0.1-0.3); Lipase 73 U/L (8-78); Phosphorus 2.6 mg/dL (2.3-4.7)
[2024-03-12 06:31] LABS: Eosinophils 2 % (0-10); Lymphocytes 16 % (21-51); Microcytosis SLIGHT = 6-15 cells HPF (0-5); Monocytes 6 % (0-10); Neutrophil 73 % (42-75); Platelet Adequacy Comment Significant Decrease; Poikilocytosis SLIGHT = 6-15 cells HPF (0-5); Polychromasia SLIGHT = 2-3 cells HPF (0-2); Target Cells SLIGHT = 2-5 cells HPF (0-1)
[2024-03-12] MEDS ORDERED: Lorazepam 1 MG TAB PO PRN (07:47)
[2024-03-12] MEDS: Morphine 2 MG/ML VIAL SLOW IVP PRN (09:57)
[2024-03-12] MEDS: Potassium Bicarbonate/Cit Ac 20 MEQ TAB PO SCH (09:58)
[2024-03-13] MEDS: Acetaminophen 325 MG TAB PO PRN (03:12)
[2024-03-13 06:29] LABS: Anion Gap 13 mmol/L (10-20); BUN (Urea Nitrogen) 4 mg/dL (9.8-20.1); Bilirubin, Direct 0.6 mg/dL (0.1-0.3); Calc. Creatinine Clearance 141 mL/min (70-130); Calcium 8.7 mg/dL (7.8-10.44); Carbon Dioxide 22 mmol/L (22-29); Chloride 103 mmol/L (98-107); Estimated GFR 109; Glucose 89 mg/dL (70-105); Potassium 3.4 mmol/L (3.5-5.1); Sodium 135 mmol/L (136-145)
[2024-03-13] MEDS: Potassium Chloride 20 MEQ TAB PO SCH (12:57)
[2024-03-13] MEDS: Lorazepam 1 MG TAB PO PRN (22:45)
[2024-03-13] MEDS: Morphine 4 MG/ML VIAL SLOW IVP PRN (23:08)
[2024-03-14] MEDS ORDERED: Ondansetron ODT 4 MG TAB PO PRN (00:33)
[2024-03-14] MEDS ORDERED: Electrolyte Replacement Protocol FS SCH (00:45)
[2024-03-14] MEDS: chlordiazePOXIDE HCl 25 MG CAP PO SCH (00:46)
[2024-03-14] MEDS: Lorazepam 2 MG/ML VIAL SLOW IVP SCH ×3 (00:47→03:45)
[2024-03-14] MEDS: Lorazepam 2 MG/ML VIAL IM PRN (01:31)
[2024-03-14 07:39] LABS: Anion Gap 13 mmol/L (10-20); BUN (Urea Nitrogen) Less than 4 mg/dL (9.8-20.1); Calc. Creatinine Clearance 133 mL/min (70-130); Calcium 9.1 mg/dL (7.8-10.44); Carbon Dioxide 22 mmol/L (22-29); Chloride 104 mmol/L (98-107); Estimated GFR 107; Glucose 92 mg/dL (70-105); Magnesium 1.4 mg/dL (1.6-2.6); Potassium 3.5 mmol/L (3.5-5.1); Sodium 135 mmol/L (136-145)
[2024-03-14 07:40] LABS: Phosphorus 4.3 mg/dL (2.3-4.7)
[2024-03-14] MEDS ORDERED: Lorazepam 0.5 MG TAB PO PRN (07:47)
[2024-03-14] MEDS ORDERED: Thiamine 100 MG TAB PO SCH (08:00)
[2024-03-14] MEDS ORDERED: Potassium Chloride 20 MEQ TAB PO SCH (08:00)
[2024-03-14 08:04] LABS: Hematocrit 33.9 % (36.0-47.0); Hemoglobin 10.8 g/dL (12.0-16.0); Mean Corpuscular HGB CONC 31.9 g/dL (32.0-36.0); Mean Corpuscular Hemoglobin 26.3 pg (27.0-31.0); Mean Corpuscular Volume 82.7 fL (78.0-98.0); Mean Platelet Volume 11.3 fL (7.4-10.4); Platelet Count 56 10x3/uL (130-400); RBC Distribution Width 17.4 % (11.5-14.5)
[2024-03-14 08:10] VITALS: BP 118/84; TEMP 99
[2024-03-14 08:38] LABS: Anisocytosis SLIGHT = 6-15 cells HPF (0-5); Band 3 % (5-11); Eosinophils 3 % (0-10); Hypochromia SLIGHT = 6-15 cells HPF (0-5); Lymphocytes 5 % (21-51); Monocytes 18 % (0-10); Neutrophil 71 % (42-75); Platelet Adequacy Comment Significant Decrease; Poikilocytosis SLIGHT = 6-15 cells HPF (0-5); Polychromasia SLIGHT = 2-3 cells HPF (0-2)
[2024-03-14] MEDS ORDERED: chlordiazePOXIDE HCl 25 MG CAP PO SCH ×2 (09:00)
== END 2024-03-14 08:12 | disposition left against medical advice (07) | DRG 439 ==
LOC: SUATTDRO 03:52 → ERS 03:52 → T4-A 09:01
PROVIDERS: ADMIT Internal Medicine; ATTEND Hospitalist
PROC: HZ2ZZZZ Detoxification Services for Substance Abuse Treatment (ICD-10-PCS; principal; 2024-03-11)
DX: K85.20 Alcohol induced acute pancreatitis without necrosis or infection (principal); D61.818 Other pancytopenia; K92.0 Hematemesis; G47.00 Insomnia, unspecified; F39 Unspecified mood [affective] disorder; R44.1 Visual hallucinations; E87.6 Hypokalemia; Z53.29 Procedure and treatment not carried out because of patient's decision for other reasons; K86.1 Other chronic pancreatitis; Z79.899 Other long term (current) drug therapy; Z71.41 Alcohol abuse counseling and surveillance of alcoholic; Z98.51 Tubal ligation status; K70.31 Alcoholic cirrhosis of liver with ascites; F10.20 Alcohol dependence, uncomplicated
CPT/HCPCS: 36415; 80048; 80053; 82248; 83605; 83690; 83735; 84100; 85025; 85060; 85610; 86141; 87040; 87070; 87205; 89051; 93005; 96372; 96374; 96375; C9113; J0696; J2060; J2270; J2272; J2405; J3411; J3490; J7120; Q0162

== ENCOUNTER 2024-03-27 00:15 | Emergency (ER) | payer OTHER, SELFPAY ==
[2024-03-27] MEDS ORDERED: Ketorolac Tromethamine 30 MG (1 mL) VIAL ONE (01:02)
[2024-03-27 01:11] LABS: #Basophils Less than 0.03 10x3/uL (0.0-0.2); %Basophils 0.6 % (0.0-1.0); %Eosinophils 3.4 % (0.0-10.0); %Lymphocytes 37.7 % (21.0-51.0); %Monocytes 16.3 % (0.0-10.0); Hematocrit 33.8 % (36.0-47.0); Hemoglobin 11.2 g/dL (12.0-16.0); Mean Corpuscular HGB CONC 33.1 g/dL (32.0-36.0); Mean Corpuscular Hemoglobin 26.7 pg (27.0-31.0); Mean Corpuscular Volume 80.5 fL (78.0-98.0); Mean Platelet Volume 9.1 fL (7.4-10.4); Platelet Count 103 10x3/uL (130-400); RBC Distribution Width 18.6 % (11.5-14.5)
[2024-03-27 01:13] LABS: ALT (SGPT) 22 U/L (8-55); AST (SGOT) 114 U/L (5-34); Albumin 3.2 g/dL (3.5-5.0); Alkaline Phosphatase 115 U/L (40-110); Anion Gap 16 mmol/L (10-20); BUN (Urea Nitrogen) Less than 4 mg/dL (9.8-20.1); Bilirubin, Total 1.3 mg/dL (0.2-1.2); Calc. Creatinine Clearance 0 mL/min (70-130); Calcium 8.4 mg/dL (7.8-10.44); Carbon Dioxide 18 mmol/L (22-29); Chloride 101 mmol/L (98-107); Estimated GFR 107; Glucose 93 mg/dL (70-105); Lipase 32 U/L (8-78); Potassium 3.6 mmol/L (3.5-5.1); Protein, Total 7.2 g/dL (6.0-8.3); Sodium 131 mmol/L (136-145)
[2024-03-27 01:14] LABS: Acetaminophen Less than 10 mcg/mL (10.0-30.0); Alcohol 384.1 mg/dL (Less than 10); Salicylate Less than 8.0 mg/dL (15.0-30.0)
[2024-03-27 01:17] LABS: Troponin I Less than 0.010 ng/mL (< 0.028)
[2024-03-27] MEDS ORDERED: Morphine 4 MG/ML VIAL ONE (02:00)
[2024-03-27] MEDS ORDERED: Thiamine HCl 200 MG/2 ML VIAL ONE (02:00)
[2024-03-27 02:29] LABS: Anisocytosis MODERATE=16-30 cells HPF (0-5); Macrocytosis MODERATE=16-30 cells HPF (0-5); Platelet Adequacy Comment Platelets Decreased; Polychromasia SLIGHT = 2-3 cells HPF (0-2)
== END 2024-03-27 02:30 | disposition short-term general hospital (02) ==
LOC: ERS 00:15
DX: T74.21XA Adult sexual abuse, confirmed, initial encounter (principal); F10.10 Alcohol abuse, uncomplicated; G89.29 Other chronic pain; R10.9 Unspecified abdominal pain; K21.9 Gastro-esophageal reflux disease without esophagitis; Z79.899 Other long term (current) drug therapy
CPT/HCPCS: 36415; 80053; 80307; 82140; 83690; 84484; 85025; 93005; 96365; 96375; J1885; J2270; J3411

== ENCOUNTER 2024-10-18 01:29 | Emergency (ER) | payer OTHER ==
[2024-10-18] MEDS ORDERED: Morphine 4 MG/ML VIAL ONE (01:50)
[2024-10-18] MEDS ORDERED: Ondansetron PF 4 MG/2 ML Vial ONE (01:50)
[2024-10-18] MEDS ORDERED: Pantoprazole 40 MG VIAL ONE (01:50)
[2024-10-18 02:02] LABS: #Basophils Less than 0.03 10x3/uL (0.0-0.2); %Basophils 0.6 % (0.0-1.0); %Lymphocytes 34.2 % (21.0-51.0); %Monocytes 18.5 % (0.0-10.0); %Neutrophils 43.4 % (42.0-75.0); Hematocrit 33.9 % (36.0-47.0); Hemoglobin 11.2 g/dL (12.0-16.0); Mean Corpuscular Hemoglobin 31.7 pg (27.0-31.0); Mean Platelet Volume 9.5 fL (7.4-10.4); Platelet Count 81 10x3/uL (130-400); RBC Distribution Width 15.1 % (11.5-14.5); Red Blood Cell (RBC) Count 3.53 mill/uL (4.20-5.40)
[2024-10-18 02:18] LABS: BHCG - Serum Negative (NEGATIVE); Pregs Control Background? CLEAR/WHITE (CLR/WHITE); Pregs Control Bar Appear? YES (CONTROL BAR)
[2024-10-18 02:20] LABS: ALT (SGPT) 16 U/L (8-55); AST (SGOT) 40 U/L (5-34); Albumin 3.1 g/dL (3.5-5.0); Alkaline Phosphatase 162 U/L (40-110); Anion Gap 13 mmol/L (10-20); BUN (Urea Nitrogen) 5 mg/dL (9.8-20.1); Bilirubin, Total 0.9 mg/dL (0.2-1.2); Calc. Creatinine Clearance 0 mL/min (70-130); Calcium 8.8 mg/dL (7.8-10.44); Carbon Dioxide 19 mmol/L (22-29); Chloride 110 mmol/L (98-107); Estimated GFR 111; Globulin 3.8 g/dL (2.4-3.5); Glucose 97 mg/dL (70-105); Lipase 95 U/L (8-78); Potassium 3.7 mmol/L (3.5-5.1); Protein, Total 6.9 g/dL (6.0-8.3); Sodium 138 mmol/L (136-145)
[2024-10-18 02:22] LABS: INR-International Normal Ratio 1.3; Prothrombin Time 15.9 sec (12.0-14.7)
[2024-10-18 02:23] LABS: PTT 31.6 sec (22.9-36.1)
[2024-10-18 02:25] LABS: Troponin I Less than 0.010 ng/mL (< 0.028)
[2024-10-18] MEDS ORDERED: Ketorolac Tromethamine 30 MG (1 mL) VIAL ONE (02:25)
[2024-10-18 02:29] LABS: Acetaminophen Less than 10 mcg/mL (Less than 10); Alcohol 241.2 mg/dL (Less than 10); Salicylate Less than 8.0 mg/dL (Less than 8.0)
== END 2024-10-18 03:24 | disposition home or self-care (01) ==
LOC: ERS 01:29
DX: F10.129 Alcohol abuse with intoxication, unspecified (principal); K70.30 Alcoholic cirrhosis of liver without ascites; M25.512 Pain in left shoulder; D69.6 Thrombocytopenia, unspecified; K21.9 Gastro-esophageal reflux disease without esophagitis; Z79.899 Other long term (current) drug therapy
CPT/HCPCS: 36415; 80053; 80307; 82140; 83605; 83690; 83880; 84484; 84703; 85025; 85610; 85730; 93005; 96374; 96375; J1885; J2270; J2405; J2470

== ENCOUNTER 2024-10-29 02:05 | Emergency (ER) | payer OTHER ==
[2024-10-29] MEDS ORDERED: Ketorolac Tromethamine 30 MG (1 mL) VIAL ONE (02:46)
[2024-10-29] MEDS ORDERED: Acetaminophen 500 MG TAB ONE (02:46)
[2024-10-29 03:26] LABS: #Basophils Less than 0.03 10x3/uL (0.0-0.2); %Basophils 0.3 % (0.0-1.0); %Eosinophils 2.8 % (0.0-10.0); %Lymphocytes 27.8 % (21.0-51.0); %Monocytes 16.8 % (0.0-10.0); Hematocrit 34.3 % (36.0-47.0); Hemoglobin 11.7 g/dL (12.0-16.0); Lipase 30 U/L (8-78); Mean Corpuscular HGB CONC 34.1 g/dL (32.0-36.0); Mean Corpuscular Hemoglobin 31.7 pg (27.0-31.0); Mean Platelet Volume 10.1 fL (7.4-10.4); Platelet Count 59 10x3/uL (130-400); RBC Distribution Width 14.6 % (11.5-14.5); Red Blood Cell (RBC) Count 3.69 mill/uL (4.20-5.40)
[2024-10-29 03:28] LABS: Acetaminophen Less than 10 mcg/mL (Less than 10); Alcohol 393.5 mg/dL (Less than 10); Salicylate Less than 8.0 mg/dL (Less than 8.0)
[2024-10-29 03:32] LABS: ALT (SGPT) 20 U/L (8-55); AST (SGOT) 84 U/L (5-34); Albumin 3.2 g/dL (3.5-5.0); Alkaline Phosphatase 131 U/L (40-110); Anion Gap 17 mmol/L (10-20); BUN (Urea Nitrogen) 4 mg/dL (9.8-20.1); Bilirubin, Total 1.1 mg/dL (0.2-1.2); Calc. Creatinine Clearance 0 mL/min (70-130); Calcium 8.3 mg/dL (7.8-10.44); Carbon Dioxide 20 mmol/L (22-29); Chloride 110 mmol/L (98-107); Estimated GFR 110; Globulin 4.3 g/dL (2.4-3.5); Glucose 104 mg/dL (70-105); Potassium 4.6 mmol/L (3.5-5.1); Protein, Total 7.5 g/dL (6.0-8.3); Sodium 142 mmol/L (136-145)
[2024-10-29 03:33] LABS: Troponin I 0.011 ng/mL (< 0.028)
[2024-10-29] MEDS ORDERED: Thiamine HCl 200 MG/2 ML VIAL ONE (04:36)
== END 2024-10-29 12:32 | disposition home or self-care (01) ==
LOC: ERS 02:05
DX: F10.129 Alcohol abuse with intoxication, unspecified (principal); R06.02 Shortness of breath; K74.60 Unspecified cirrhosis of liver; K21.9 Gastro-esophageal reflux disease without esophagitis; M81.0 Age-related osteoporosis without current pathological fracture; Z79.899 Other long term (current) drug therapy
CPT/HCPCS: 71045; 80053; 80307; 83690; 84484; 85025; 87428; 93005; 94760; 96365; 96375; J1885; J3411

== ENCOUNTER 2024-11-01 11:04 | Emergency (ER) | payer OTHER ==
[2024-11-01] MEDS ORDERED: Ketorolac Tromethamine 30 MG (1 mL) VIAL ONE (12:27)
[2024-11-01 12:45] LABS: Mean Corpuscular HGB CONC 35.1 g/dL (32.0-36.0); Mean Corpuscular Hemoglobin 31.7 pg (27.0-31.0); Mean Corpuscular Volume 90.2 fL (78.0-98.0); Platelet Count 98 10x3/uL (130-400); RBC Distribution Width 14.1 % (11.5-14.5)
[2024-11-01 12:46] LABS: #Basophils 0.04 10x3/uL (0.0-0.2); %Basophils 1.1 % (0.0-1.0); %Eosinophils 2.5 % (0.0-10.0); %Monocytes 15.8 % (0.0-10.0); %Neutrophils 40.3 % (42.0-75.0); Mean Platelet Volume 9.4 fL (7.4-10.4)
[2024-11-01 12:55] LABS: ALT (SGPT) 23 U/L (Less than 34); AST (SGOT) 101 U/L (11-34); Albumin 3.4 g/dL (3.1-4.5); Alkaline Phosphatase 109 U/L (40-110); Anion Gap 18 mmol/L (10-20); BUN (Urea Nitrogen) Less than 4 mg/dL (9.8-20.1); Bilirubin, Total 1.7 mg/dL (0.3-1.2); Calc. Creatinine Clearance 0 mL/min (70-130); Calcium 8.4 mg/dL (7.8-10.44); Carbon Dioxide 18 mmol/L (22-29); Chloride 101 mmol/L (98-107); Estimated GFR 111; Globulin 4.2 g/dL (2.4-3.5); Glucose 85 mg/dL (70-105); Lipase 39 U/L (8-78); Potassium 4.3 mmol/L (3.5-5.1); Protein, Total 7.6 g/dL (6.0-8.3); Sodium 133 mmol/L (136-145)
[2024-11-01] MEDS ORDERED: Iopamidol-370 76% 500 ML MDV (1 ML CHARGE) ONE (13:12)
== END 2024-11-01 13:57 | disposition home or self-care (01) ==
LOC: ERS 11:04
DX: K74.60 Unspecified cirrhosis of liver (principal); K40.90 Unilateral inguinal hernia, without obstruction or gangrene, not specified as recurrent; R18.8 Other ascites; K21.9 Gastro-esophageal reflux disease without esophagitis; Z55.6 Problems related to health literacy
CPT/HCPCS: 36415; 74177; 80053; 83605; 83690; 85025; 96374; J1885

== ENCOUNTER 2024-11-17 20:02 | Emergency (ER) | payer OTHER ==
[~2024-11-17 20:02] MED LIST changes: -Albumin 25% 0 ML ONE; +Iopamidol-370 76% 500 ML MDV (1 ML CHARGE) ONE; -Lidocaine 1% PF 5 ML VIAL ONE; -Sodium Bicarbonate 2.5 MEQ/5 ML VIAL ONE
[2024-11-17 20:45] LABS: #Basophils Less than 0.03 10x3/uL (0.0-0.2); %Basophils 0.4 % (0.0-1.0); %Lymphocytes 11.7 % (21.0-51.0); %Monocytes 9.2 % (0.0-10.0); %Neutrophils 77.3 % (42.0-75.0); Hematocrit 35.9 % (36.0-47.0); Mean Corpuscular HGB CONC 33.4 g/dL (32.0-36.0); Mean Corpuscular Hemoglobin 30.1 pg (27.0-31.0); Mean Platelet Volume 10.2 fL (7.4-10.4); Platelet Count 41 10x3/uL (130-400); RBC Distribution Width 14.2 % (11.5-14.5); Red Blood Cell (RBC) Count 3.99 mill/uL (4.20-5.40)
[2024-11-17 20:49] LABS: INR-International Normal Ratio 1.4; PTT 36.2 sec (22.9-36.1); Prothrombin Time 16.8 sec (12.0-14.7)
[2024-11-17] MEDS ORDERED: Pantoprazole 40 MG VIAL ONE (20:57)
[2024-11-17 20:58] LABS: ALT (SGPT) 37 U/L (Less than 34); AST (SGOT) 164 U/L (11-34); Albumin 3.3 g/dL (3.1-4.5); Alkaline Phosphatase 101 U/L (40-110); Anion Gap 20 mmol/L (10-20); BUN (Urea Nitrogen) 5 mg/dL (9.8-20.1); Bilirubin, Total 1.3 mg/dL (0.3-1.2); Calc. Creatinine Clearance 0 mL/min (70-130); Calcium 8.4 mg/dL (7.8-10.44); Carbon Dioxide 16 mmol/L (22-29); Chloride 105 mmol/L (98-107); Estimated GFR 114; Globulin 3.5 g/dL (2.4-3.5); Glucose 97 mg/dL (70-105); Potassium 3.6 mmol/L (3.5-5.1); Protein, Total 6.8 g/dL (6.0-8.3); Sodium 137 mmol/L (136-145)
[2024-11-17] MEDS ORDERED: Octreotide Acetate 500 MCG/ML VIAL ONE (20:58)
[2024-11-17] MEDS ORDERED: Octreotide Acetate 1,250 MCG in Sodium Chloride 0.9% 250 ML 250 ML IVPB SCH (21:15)
== END 2024-11-17 22:20 | disposition home or self-care (01) ==
LOC: ERS 20:02
DX: R11.2 Nausea with vomiting, unspecified (principal); F10.129 Alcohol abuse with intoxication, unspecified
CPT/HCPCS: 36415; 71045; 74177; 80053; 85025; 85610; 85730; 86850; 86900; 86901; 93005; 94760; 96361; 96374; J2354; J2470; J7050; Q9967

== ENCOUNTER 2025-05-18 10:39 | Emergency (ER) | payer MEDICAID ==
[2025-05-18 11:20] LABS: CAUTI Indications for Culture Pelvic or flank pain; Glucose, Urine (Dipstick) Normal (Negative); Leukocyte Negative Leu/uL (Negative); Protein, Urine (Dipstick) Negative (Neg-Trace); RBC/HPF 0-3 HPF (0-3); Specific Gravity, Urine 1.014 (1.002-1.036); WBC/HPF 0-3 HPF (0-3)
[2025-05-18 11:21] LABS: Bacteria/HPF 1+ HPF (None Seen); Urine Culture Reflex No No
[2025-05-18 12:04] LABS: Hematocrit 30.4 % (36.0-47.0); Hemoglobin 10.1 g/dL (12.0-16.0); Mean Corpuscular Hemoglobin 27.0 pg (27.0-31.0); Mean Corpuscular Volume 81.3 fL (78.0-98.0); Platelet Count 107 10x3/uL (130-400); Red Blood Cell (RBC) Count 3.74 mill/uL (4.20-5.40); White Blood Cell (WBC) Count 6.33 10x3/uL (4.8-10.8)
[2025-05-18 12:23] LABS: Anisocytosis MARKED = >30 cells HPF (0-5); Macrocytosis MARKED = >30 cells HPF (0-5); Ovalocytes SLIGHT = 2-5 cells HPF (0-1); Platelet Adequacy Comment Platelets Decreased; Polychromasia MODERATE = 3-4 cells HPF (0-2)
[2025-05-18 12:25] LABS: ALT (SGPT) 22 U/L (Less than 34); AST (SGOT) 114 U/L (11-34); Albumin 3.0 g/dL (3.1-4.5); Alkaline Phosphatase 175 U/L (40-110); Anion Gap 12 mmol/L (10-20); BUN (Urea Nitrogen) 4 mg/dL (9.8-20.1); Bilirubin, Total 2.2 mg/dL (0.3-1.2); Calc. Creatinine Clearance 0 mL/min (70-130); Calcium 8.3 mg/dL (7.8-10.44); Carbon Dioxide 25 mmol/L (22-29); Chloride 97 mmol/L (98-107); Globulin 4.0 g/dL (2.4-3.5); Glucose 69 mg/dL (70-105); Lipase 37 U/L (8-78); Magnesium 1.2 mg/dL (1.6-2.6); Potassium 3.3 mmol/L (3.5-5.1); Sodium 131 mmol/L (136-145)
[2025-05-18] MEDS ORDERED: Furosemide 20 MG (2 mL) VIAL ONE (13:52)
[2025-05-18] MEDS ORDERED: Magnesium 2 GM/50 ML BAG (IN WATER) ONE (13:52)
== END 2025-05-18 15:10 | disposition home or self-care (01) ==
LOC: ERS 10:39
DX: E87.6 Hypokalemia (principal); E83.42 Hypomagnesemia; S22.41XD Multiple fractures of ribs, right side, subsequent encounter for fracture with routine healing; K21.9 Gastro-esophageal reflux disease without esophagitis; Z55.6 Problems related to health literacy; Z79.899 Other long term (current) drug therapy; X58.XXXD Exposure to other specified factors, subsequent encounter
CPT/HCPCS: 71250; 74177; 80053; 81001; 83605; 83690; 83735; 83880; 85025; 87086; 96365; 96375; J1940; J2270; J3475

== ENCOUNTER 2025-06-19 02:11 | Emergency (ER) | payer MEDICAID, OTHER ==
[2025-06-19] MEDS ORDERED: Ketorolac Tromethamine 30 MG (1 mL) VIAL ONE (02:46)
[2025-06-19 03:29] LABS: #Basophils 0.05 10x3/uL (0.0-0.2); #Eosinophils 0.11 10x3/uL (0.0-0.7); #Monocytes 0.89 10x3/uL (0.11-0.59); #Neutrophils 1.97 10x3/uL (1.40-6.50); %Basophils 1.0 % (0.0-1.0); %Eosinophils 2.2 % (0.0-10.0); %Lymphocytes 39.1 % (21.0-51.0); %Monocytes 17.9 % (0.0-10.0); %Neutrophils 39.8 % (42.0-75.0); Hematocrit 29.2 % (36.0-47.0); Hemoglobin 9.3 g/dL (12.0-16.0); Mean Corpuscular Hemoglobin 26.8 pg (27.0-31.0); Mean Corpuscular Volume 84.1 fL (78.0-98.0); Platelet Count 122 10x3/uL (130-400); Red Blood Cell (RBC) Count 3.47 mill/uL (4.20-5.40); White Blood Cell (WBC) Count 4.96 10x3/uL (4.8-10.8)
[2025-06-19 04:02] LABS: ALT (SGPT) 10 U/L (Less than 34); AST (SGOT) 38 U/L (11-34); Albumin 2.6 g/dL (3.1-4.5); Alkaline Phosphatase 114 U/L (40-110); Anion Gap 10 mmol/L (10-20); BUN (Urea Nitrogen) 4 mg/dL (9.8-20.1); Bilirubin, Total 1.1 mg/dL (0.3-1.2); Calc. Creatinine Clearance 0 mL/min (70-130); Calcium 8.3 mg/dL (7.8-10.44); Carbon Dioxide 23 mmol/L (22-29); Chloride 104 mmol/L (98-107); Globulin 3.6 g/dL (2.4-3.5); Glucose 100 mg/dL (70-105); Lipase 110 U/L (8-78); Magnesium 1.4 mg/dL (1.6-2.6); Potassium 3.4 mmol/L (3.5-5.1); Sodium 134 mmol/L (136-145)
[2025-06-19 04:04] LABS: Acetaminophen 14 mcg/mL (Less than 10); Salicylate Less than 8.0 mg/dL (Less than 8.0)
== END 2025-06-19 03:31 | disposition left against medical advice (07) ==
LOC: ERS 02:11
DX: R07.89 Other chest pain (principal)
CPT/HCPCS: 80053; 80307; 83690; 83735; 83880; 84484; 85025; 93005; 96374; J1885

== ENCOUNTER 2025-06-21 20:25 | Emergency (ER) | payer MEDICAID ==
[2025-06-21 21:15] LABS: #Basophils 0.04 10x3/uL (0.0-0.2); #Eosinophils 0.42 10x3/uL (0.0-0.7); #Monocytes 0.68 10x3/uL (0.11-0.59); #Neutrophils 2.14 10x3/uL (1.40-6.50); %Basophils 0.8 % (0.0-1.0); %Eosinophils 8.3 % (0.0-10.0); %Lymphocytes 34.9 % (21.0-51.0); %Monocytes 13.5 % (0.0-10.0); %Neutrophils 42.3 % (42.0-75.0); Hematocrit 34.0 % (36.0-47.0); Hemoglobin 10.5 g/dL (12.0-16.0); Mean Corpuscular Hemoglobin 26.7 pg (27.0-31.0); Mean Corpuscular Volume 86.5 fL (78.0-98.0); Platelet Count 115 10x3/uL (130-400); Red Blood Cell (RBC) Count 3.93 mill/uL (4.20-5.40); White Blood Cell (WBC) Count 5.05 10x3/uL (4.8-10.8)
[2025-06-21 21:22] LABS: BHCG - Serum Negative (NEGATIVE); Pregs Control Background? CLEAR/WHITE (CLR/WHITE); Pregs Control Bar Appear? YES (CONTROL BAR)
[2025-06-21 21:24] LABS: INR-International Normal Ratio 1.4; PTT 38.1 sec (22.9-36.1); Prothrombin Time 17.1 sec (12.0-14.7)
[2025-06-21 21:28] LABS: Acetaminophen Less than 10 mcg/mL (Less than 10); Lipase 21 U/L (8-78); Magnesium 1.5 mg/dL (1.6-2.6); Salicylate Less than 8.0 mg/dL (Less than 8.0)
[2025-06-21 21:30] LABS: ALT (SGPT) 11 U/L (Less than 34); AST (SGOT) 57 U/L (11-34); Albumin 2.7 g/dL (3.1-4.5); Alkaline Phosphatase 117 U/L (40-110); Anion Gap 13 mmol/L (10-20); BUN (Urea Nitrogen) Less than 4 mg/dL (9.8-20.1); Bilirubin, Total 1.1 mg/dL (0.3-1.2); CK (CPK) 49 U/L (29-168); Calc. Creatinine Clearance 0 mL/min (70-130); Calcium 8.2 mg/dL (7.8-10.44); Carbon Dioxide 18 mmol/L (22-29); Chloride 111 mmol/L (98-107); Globulin 3.9 g/dL (2.4-3.5); Glucose 94 mg/dL (70-105); Potassium 3.8 mmol/L (3.5-5.1); Sodium 138 mmol/L (136-145)
[2025-06-22] MEDS ORDERED: Magnesium 2 GM/50 ML BAG (IN WATER) ONE (00:15)
[2025-06-22 01:13] LABS: Bacteria/HPF None Seen HPF (None Seen); CAUTI Indications for Culture Alt mental st,lethar; Glucose, Urine (Dipstick) Normal (Negative); Leukocyte Negative Leu/uL (Negative); Protein, Urine (Dipstick) Negative (Neg-Trace); RBC/HPF 0-3 HPF (0-3); Specific Gravity, Urine 1.008 (1.002-1.036); WBC/HPF 0-3 HPF (0-3)
[2025-06-22 01:14] LABS: Urine Culture Reflex No No
[2025-06-22 01:21] LABS: Cocaine Metabolite Screen Negative (Negative); THC/Cannabinoid Screen Negative (Negative); Tricyclic Screen Negative (Negative)
== END 2025-06-22 02:56 | disposition home or self-care (01) ==
LOC: ERS 20:25
DX: T76.21XA Adult sexual abuse, suspected, initial encounter (principal); F10.129 Alcohol abuse with intoxication, unspecified; K70.30 Alcoholic cirrhosis of liver without ascites; R74.8 Abnormal levels of other serum enzymes; R74.01 Elevation of levels of liver transaminase levels
CPT/HCPCS: 36415; 36416; 70450; 71045; 71275; 72125; 74177; 80053; 80306; 80307; 81001; 82550; 83605; 83690; 83735; 84484; 84703; 85025; 85610; 85730; 86850; 86900; 86901; 93005; 94760; 96374; J3475; Q9967

== ENCOUNTER 2025-07-22 14:11 | Outpatient (CLI) | payer MEDICAID | END 2025-07-22 14:12 | disposition home or self-care (01) | LOC: MRI 14:11 | PROVIDERS: ATTEND Specialist | DX: M54.12 Radiculopathy, cervical region (principal); M48.02 Spinal stenosis, cervical region | CPT/HCPCS: 72141 ==

== ENCOUNTER 2025-08-25 22:38 | Inpatient (IN) | payer MEDICAID ==
[2025-08-26] LABS: Hematocrit 29.2 % (36.0-47.0); Hemoglobin 9.1 g/dL (12.0-16.0); Mean Corpuscular Hemoglobin 25.1 pg (27.0-31.0); Mean Corpuscular Volume 80.7 fL (78.0-98.0); Platelet Count 57 10x3/uL (130-400); Red Blood Cell (RBC) Count 3.62 mill/uL (4.20-5.40); White Blood Cell (WBC) Count 2.91 10x3/uL (4.8-10.8)
[2025-08-26 00:07] LABS: ALT (SGPT) 16 U/L (Less than 34); AST (SGOT) 72 U/L (11-34); Albumin 2.8 g/dL (3.1-4.5); Alkaline Phosphatase 95 U/L (40-110); Anion Gap 15 mmol/L (10-20); BUN (Urea Nitrogen) Less than 4 mg/dL (9.8-20.1); Bilirubin, Total 1.3 mg/dL (0.3-1.2); Calc. Creatinine Clearance 0 mL/min (70-130); Calcium 8.1 mg/dL (7.8-10.44); Carbon Dioxide 22 mmol/L (22-29); Chloride 106 mmol/L (98-107); Globulin 3.9 g/dL (2.4-3.5); Glucose 89 mg/dL (70-105); Potassium 3.6 mmol/L (3.5-5.1); Sodium 139 mmol/L (136-145)
[2025-08-26 00:09] LABS: INR-International Normal Ratio 1.5; PTT 39.4 sec (22.9-36.1); Prothrombin Time 18.2 sec (12.0-14.7)
[2025-08-26 01:06] LABS: Anisocytosis SLIGHT = 6-15 cells HPF (0-5); Macrocytosis SLIGHT = 6-15 cells HPF (0-5); Platelet Adequacy Comment Platelets Decreased; Polychromasia SLIGHT = 2-3 cells HPF (0-2); Smudge Cells 22.1 %
[2025-08-26] MEDS ORDERED: Electrolyte Replacement Protocol 1 EACH FS SCH (09:15)
[2025-08-26] MEDS ORDERED: Ondansetron PF 4 MG/2 ML Vial IVP PRN (09:19)
[2025-08-26] MEDS ORDERED: Acetaminophen 325 MG TAB PO PRN (09:19)
[2025-08-26] MEDS ORDERED: NS 0.9% w/ 20 MEQ KCL 1,000 ML/1,000 ML BAG IV SCH (10:15)
[2025-08-26] MEDS ORDERED: Potassium Chloride 20 MEQ in Premix 1 BAG IVPB PRN (10:30)
[2025-08-26] MEDS ORDERED: PHOS-NAK 1 PKT PACK PO PRN (10:30)
[2025-08-26] MEDS ORDERED: Magnesium 2 GM/50 ML(in water) 2 GM in Premix 1 BAG IVPB PRN (10:30)
[2025-08-26] MEDS ORDERED: Dextrose 50% Abboject 50 ML SYRINGE SLOW IVP PRN (10:36)
[2025-08-26] MEDS ORDERED: Glucagon 1 MG/ML KIT IM PRN (10:36)
[2025-08-26] MEDS ORDERED: Multivitamins, Adult 10 ML, Folic Acid 1 MG, Thiamine HCl 100 MG, Admixture Fee 1 EACH ... IV SCH (10:45)
[2025-08-26 10:53] LABS: Magnesium 1.6 mg/dL (1.6-2.6)
[2025-08-26] MEDS ORDERED: Iopamidol-370 76% 500 ML MDV (1 ML CHARGE) ONE (11:11)
[2025-08-26] MEDS: Multivitamins, Adult 10 ML, Thiamine HCl 100 MG, Folic Acid 1 MG in Dextrose 5 %-0.45 %... IV SCH (12:21)
[2025-08-26] MEDS: Pantoprazole 40 MG VIAL IVP SCH (12:21)
[2025-08-26] MEDS: Folic Acid 1 MG TAB PO SCH (12:46)
[2025-08-26] MEDS: Multivit, Therapeutic 1 TAB PO SCH (12:47)
[2025-08-26] MEDS ORDERED: Lactulose 20 GM (30 mL) UDCUP ONE (14:08)
[2025-08-26] MEDS: Lactulose 20 GM (30 mL) UDCUP PO SCH (14:11)
[2025-08-26] MEDS ORDERED: Propranolol 10 MG TAB PO SCH (15:00)
[2025-08-26 17:15] LABS: Glucose, Urine (Dipstick) Normal (Negative); Leukocyte Negative Leu/uL (Negative); Protein, Urine (Dipstick) Negative (Neg-Trace); Specific Gravity, Urine 1.013 (1.002-1.036)
[2025-08-26 17:48] VITALS: BMI 25.8
[2025-08-26] MEDS: Rifaximin 550 MG TAB PO SCH (21:16)
[2025-08-26] MEDS: Pantoprazole 40 MG DR.TAB PO SCH (21:16)
[2025-08-27 04:44] LABS: ALT (SGPT) 16 U/L (Less than 34); AST (SGOT) 81 U/L (11-34); Albumin 2.8 g/dL (3.1-4.5); Alkaline Phosphatase 94 U/L (40-110); Anion Gap 16 mmol/L (10-20); BUN (Urea Nitrogen) Less than 4 mg/dL (9.8-20.1); Bilirubin, Total 1.8 mg/dL (0.3-1.2); Calc. Creatinine Clearance 161 mL/min (70-130); Calcium 8.0 mg/dL (7.8-10.44); Carbon Dioxide 17 mmol/L (22-29); Chloride 105 mmol/L (98-107); Globulin 3.9 g/dL (2.4-3.5); Glucose 89 mg/dL (70-105); Lipase 18 U/L (8-78); Potassium 3.6 mmol/L (3.5-5.1); Sodium 134 mmol/L (136-145)
[2025-08-27 04:48] LABS: Hematocrit 27.7 % (36.0-47.0); Hemoglobin 8.4 g/dL (12.0-16.0); Mean Corpuscular Hemoglobin 25.2 pg (27.0-31.0); Mean Corpuscular Volume 83.2 fL (78.0-98.0); Platelet Count 38 10x3/uL (130-400); Red Blood Cell (RBC) Count 3.33 mill/uL (4.20-5.40); White Blood Cell (WBC) Count 1.67 10x3/uL (4.8-10.8)
[2025-08-27 05:13] LABS: Platelet Adequacy Comment Platelets Decreased; Smudge Cells 7.9 %
[2025-08-27] MEDS: Multivit, Therapeutic 1 TAB PO SCH (10:26)
[2025-08-27] MEDS: Folic Acid 1 MG TAB PO SCH (10:26)
[2025-08-27] MEDS: PNEUMOC 20-VAL CONJ-DIP CRM/PF 0.5 ML SYRINGE IM ONE (10:29)
[2025-08-27 13:08] VITALS: BMI 25.8
[2025-08-28 12:01] VITALS: BP 124/73; TEMP 98.4
[2025-08-29] MEDS ORDERED: Thiamine 100 MG TAB PO SCH (09:00)
== END 2025-08-28 14:37 | disposition home or self-care (01) | DRG 556 ==
LOC: ERS 22:38 → ERHOLD 08-26 07:51 → 2NO 08-26 17:19
PROVIDERS: ADMIT Internal Medicine; ATTEND Internal Medicine
DX: M79.605 Pain in left leg (principal); D61.818 Other pancytopenia; I85.10 Secondary esophageal varices without bleeding; K51.90 Ulcerative colitis, unspecified, without complications; K70.30 Alcoholic cirrhosis of liver without ascites; F10.20 Alcohol dependence, uncomplicated; K22.70 Barrett's esophagus without dysplasia; M54.32 Sciatica, left side; K21.9 Gastro-esophageal reflux disease without esophagitis; F10.220 Alcohol dependence with intoxication, uncomplicated; Y90.8 Blood alcohol level of 240 mg/100 ml or more; M54.9 Dorsalgia, unspecified; W19.XXXA Unspecified fall, initial encounter; Z98.890 Other specified postprocedural states; Z79.51 Long term (current) use of inhaled steroids; Z88.1 Allergy status to other antibiotic agents; Z91.0110 Allergy to milk products, unspecified
CPT/HCPCS: 36415; 36416; 70450; 71250; 72125; 74177; 76705; 80053; 80307; 81003; 82140; 83690; 83735; 84100; 85025; 85610; 85730; J2470; J3411; J7042; Q9967